=== PATIENT | female | born 1940 | race Caucasian/White ===

== ENCOUNTER 2023-02-27 12:26 | Observation (INO) | payer MEDICARE, SELFPAY ==
[2023-02-27] VITALS (10 sets, daily range): BP systolic 142–170; BP diastolic 40–54; PULSE 58–72; RESP 16–22; TEMP 36.5–36.8; O2SAT 90–97
--- NOTE | ~2023-02-27 | CT_ITS ---
EXAMINATION: CT abdomen pelvis w con INDICATION: Leukocytosis TECHNIQUE: Computed tomographic images of the abdomen and pelvis were obtained after the administrati on of 100 cc of Omnipaque 350 intravenous contrast. The dose-length product (DLP) was 577.85 mGy-cm. Automated exposure control and iterative reconstruction technique were employed. COMPARISON: None available FINDINGS: Minimal dependent airspace opacities are present in the lung bases. The heart size is noreen l. There are small pleural effusions. There is a small pericardial effusion. Calcified coronary arter y atherosclerosis is noted. The liver, spleen, pancreas, gallbladder, and adrenal glands are normal. The right kidney is unremarkable. There is calcification within a 1.5 cm hyperdense area within the l eft kidney, possibly a hemorrhagic cyst. The urinary bladder is distended. There is mild bilateral hy droureter, likely due to bladder distention. There are small foci of intraluminal gas in the urinary bladder. No pathologically enlarged abdominal or pelvic lymph nodes are identified. No free intraperi toneal gas or evidence of bowel obstruction. There is calcified atherosclerosis of the aorta and many of the other arteries. A large volume of colonic stool is present. There is moderate lumbar spondylo sis. There is a compression deformity of L2. IMPRESSION: 1. Small pleural effusions with bilateral dependent airspace opacities of the lungs, atelectasis vers us pneumonia. 2. Distended urinary bladder with tiny foci of intraluminal gas. Correlate for history of catheteriza tion. 3. Mild bilateral hydroureter, likely due to distended urinary bladder. Reviewed, dictated and finalized at location F. IMPRESSION: 1. Small pleural effusions with bilateral dependent airspace opacities of the l ungs, atelectasis versus pneumonia. 2. Distended urinary bladder with tiny foci of intraluminal gas. Correlate for history of catheterization. 3. Mild bilateral hydroureter, likely due to distended urinary bladder.
--- NOTE | ~2023-02-27 | XR_ITS ---
Portable chest x-ray Comparison: None Clinical History: Shortness of breath Findings: There is minimal bibasilar haziness. No pleural effusion or pneumothorax. Cardiomediastin al silhouette is stable. Bones and soft tissues are unremarkable. Impression: Probable minimal bibasilar pulmonary edema. Reviewed, dictated and finalized at [facility]. Impression: Probable minimal bibasilar pulmonary edema.
--- NOTE | 2023-02-27 12:29 | ECG_ITS ---
Measurements Intervals [place] Rate: 78 P: 90 ID: [id number] QRS: 67 QRSD: 79 T: 55 QT: 366 QTc: 418 Interpretive Statements SINUS RHYTHM POOR R WAVE PROGRESSION NONSPECIFIC ST AND T WAVE ABNORMALITY NO PREVIOUS ECG AVAILABLE FOR COMPARISON Electronically Signed On 02-27-2023 13:49:42 CDT by Uriel Anthony M.D.
[2023-02-27 13:20] LABS: Basophils Absolute Auto 0.1 K/mm3 (0.0-0.1); Basophils Percent Auto 0.2 % (0.2-1.2); Eosinophils Percent Auto 0.2 % (0-4.4); Hematocrit 34.2 % (37.0-47.0); Immature Granulocyte Absolute 0.29 K/mm3 (0.00-0.031); Immature Granulocyte Percent A 1.1 % (0-0.5); Lymphocytes Absolute Auto 1.61 K/mm3 (0.9-3.2); Lymphocytes Percent Auto 6.1 % (18.3-44.2); Mean Corpuscular HGB Conc 32.2 g/dl (32-36); Mean Corpuscular Hemoglobin 28.6 pg (26-34); Mean Corpuscular Volume 88.8 fl (80-100); Mean Platelet Volume 10.8 fl (7.4-10.4); Monocytes Absolute Auto 2.2 K/mm3 (0.1-0.6); Monocytes Percent Auto 8.3 % (2.6-8.5); Neutrophils Absolute Auto 22.3 K/mm3 (1.3-6.7); Neutrophils Percent Auto 84.1 % (45.5-73.1); Platelet Count Result 425 k/mm3 (150-375); Red Blood Count 3.85 M/mm3 (4.2-5.4); Red Cell Distribution Width 15.7 % (11.5-14.5); White Blood Count 26.5 K/mm3 (4.5-10.0)
[2023-02-27 13:35] LABS: Alanine Aminotransferase 54 U/L (6-35); Albumin Level 4.1 g/dL (3.5-5.1); Alkaline Phosphatase 113 U/L (38-126); Anion Gap 7 mmol/L (8-16); Aspartate Amino Transferase 49 U/L (14-36); Bilirubin,Total 0.3 mg/dL (0.2-1.3); Blood Urea Nitrogen 25 mg/dL (7-17); Calcium 9.9 mg/dL (8.4-10.2); Carbon Dioxide 26 mmol/L (22-30); Chloride 105 mmol/L (98-107); Estimated CRCL calculation 57 ml/min; Estimated Glomerular Filt Rate > 60; Glucose 133 mg/dL (65-110); Potassium 3.9 mmol/L (3.4-5.0); Sodium 138 mmol/L (137-145)
--- NOTE | 2023-02-27 14:39 | ED.SOB ---
HPI - SOB/Dyspnea General Chief Complaint: Shortness of Breath/Dyspnea Stated Complaint: sob Time Seen by Provider: 02/27/23 13:53 History of Present Illness HPI Narrative: This is an 82-year-old female with past history of A-fib on Xarelto and hypertension, who presents the emergency department complaining of dyspnea on exertion and chest pain beginning today at approximately 9 AM. The patient states she was seated, when she noticed shortness of breath and tightness in the chest rated 4/10 that does not radiate and worsened with physical exertion. She denies fevers, chills, cough or other symptoms. Related Data Home Medications Medication Instructions Recorded Confirmed Adult Low Dose Aspirin 81 mg PO DAILY 02/27/23 02/27/23 alendronate-vitamin D3 1,000 unit PO DAILY 02/27/23 02/27/23 allopurinol 300 mg tablet 300 mg PO DAILY 02/27/23 02/27/23 amlodipine 10 mg tablet 10 mg PO DAILY 02/27/23 02/27/23 ascorbate calcium (vitamin C) 500 mg PO DAILY 02/27/23 02/27/23 hydralazine 100 mg tablet 100 mg PO TID 02/27/23 02/27/23 metoprolol succinate 100 mg 100 mg PO DAILY 02/27/23 02/27/23 tablet,extended release 24 hr rivaroxaban 15 mg tablet (Xarelto) 15 mg PO DAILY 02/27/23 02/27/23 valsartan 80 1 tablet PO DAILY 02/27/23 02/27/23 mg-hydrochlorothiazide 12.5 mg tablet Allergies Allergy/AdvReac Type Severity Reaction Status Date / Time Cephalosporins Allergy Unknown Verified 02/27/23 17:27 clindamycin Allergy Unknown Verified 02/27/23 17:27 codeine Allergy Unknown Verified 02/27/23 17:27 meperidine Allergy Unknown Verified 02/27/23 17:27 morphine Allergy Unknown Verified 02/27/23 17:27 propoxyphene Allergy Unknown Verified 02/27/23 17:27 tramadol Allergy Unknown Verified 02/27/23 17:27 Review of Systems Review of Systems: CONSTITUTIONAL: Denies fever, chills, or sweats. CARDIOVASCULAR: Chest pain denies palpitations, or edema. RESPIRATORY: Dyspnea on exertion denies cough GASTROINTESTINAL: Denies abdominal pain, nausea, vomiting, or diarrhea. GENITOURINARY: Denies dysuria or hematuria. SKIN: Denies rash or itching. MUSCULOSKELETAL: Denies back pain, joint pain, or myalgia. NEUROLOGIC: Denies headache, numbness, dizziness, or weakness. PSYCHIATRIC: Denies anxiety or depression. [facility] Past Medical History Medical History (Updated 02/27/23 @ 18:04 by Annmarie Coronel NP) A-fib Encounter for removal of skin lesion Gout Hypertension Skin cancer Surgical History Surgical History (Updated 02/27/23 @ 18:04 by Annmarie Coronel NP) H/O cataract extraction H/O lumpectomy H/O tubal ligation History of appendectomy History of removal of pigmented skin lesion Family History Family History Mother Alzheimer's dementia Hypothyroidism Father Cancer Diabetes mellitus Social History Social History (Updated 02/27/23 @ 18:07 by Annmarie Coronel NP) Social History: 2 daughters . 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 Appears tired HEAD: Normocephalic, atraumatic. EYES: PERRLA and EOMI. ENT: Nares clear, no rhinorrhea or epistaxis. Mucous membranes moist. Oropharynx without tonsillar hypertrophy exudate or other lesions. NECK: Supple. No adenopathy or masses. No carotid bruits or JVD CHEST: Good aeration, Rales noted in the bilateral posterior lung noriega. No respiratory distress. No wheezes or rhonchi
[2023-02-27 15:01] LABS: NT Pro B Type Natriuretic Pept 2060 pg/mL (19.9-100); Troponin I < 0.012 ng/mL (0.000-0.034)
[2023-02-27 17:42] LABS: Appearance Urine Cloudy (Clear); Bacteria Urine 4+ /hpf; Bilirubin Urine Negative (Negative); Blood Urine Negative (Negative); Color Urine Yellow (Yellow); Glucose Urine UA Negative (Negative); Ketones Urine Negative (Negative); Leukocyte Esterase Ur 2+ LEU/UL (Negative); Nitrate Urine Positive (Negative); Non Pathogenic Casts 0-2; Protein Urine 2+ mg/dL (Negative); RBC Urine 0-2 /hpf (0-2); Specific Grav Ur 1.014 (1.001-1.035); Squamous Epithelial Cell Urine None seen /hpf (Few); Urobilinogen Urine 0.2 mg/dL (<2.0); WBC Urine >100 /hpf; pH Urine 5.5 (5.0-9.0)
[2023-02-27 17:43] LABS: Add Urine Microscopic? YES
--- NOTE | 2023-02-27 17:58 | PM.IMHP ---
H&P: HPI History of Present Illness Date/Time: 02/27/23 17:58 Chief Complaint: Shortness of breath Narrative: this is an 82-year-old female patient who has a history of hypertension and AFib on Xarelto. The patient came to the emergency room complaining of shortness of breath and dyspnea on exertion. She had chest pain that started around 9:00 a.m. this morning. She denied any chills or fever or cough. Abdominal pelvis CT was read as the following 1. Small pleural effusions with bilateral dependent airspace opacities of the lungs, atelectasis versus pneumonia. 2. Distended urinary bladder with tiny foci of intraluminal gas. Correlate for history of catheterization. 3. Mild bilateral hydroureter, likely due to distended urinary bladder. chest x-ray was read as probable minimal bibasilar pulmonary edema. Her white counts 26.5 H&H is 11.034.2. The count 425. Troponin negative. BNP 2060. Her urine was positive for UTI. the patient was given IV Lasix and Levaquin for her UTI. The patient is being admitted to observation status on 02/27/2023 Review of Systems Review of Systems: All systems reviewed & are unremarkable except as noted in HPI and below Constitutional: Constitutional: Reports as per HPI and Reports no additional constitutional complaints Eyes: Eyes: Reports as per HPI and Reports no additional eye complaints ENT: Reports system reviewed and no additional complaints, except as documented and Reports Normal hearing present Cardiovascular: Cardiovascular: Reports no additional cardiovascular complaints Respiratory: Respiratory: Reports no additional respiratory complaints and Reports no additional respiratory complaints Gastrointestinal: Gastrointestinal: Reports as per HPI and Reports no additional gastrointestinal complaints Musculoskeletal: Musculoskeletal: Reports no additional musculoskeletal complaints Integumentary/Breasts: Skin/Breast: Reports system reviewed and no additional complaints, except as docu and Reports as per HPI Neurologic: Reports system reviewed and no additional complaints, except as documented, Reports as per HPI and Reports Normal hearing present Psychiatric: Psychiatric: Reports no additional psychiatric complaints and Reports as per HPI Endocrine: Endocrine: Reports no additional endocrine complaints Hematologic/Lymphatic: Hematologic/Lymphatic: Reports no additional hematologic/lymphatic complaints Allergic/Immunologic: Allergic/Immunologic: Reports no additional allergic/immunologic complaints [facility] Past Medical History Medical History (Updated 02/27/23 @ 23:37 by Annmarie Coronel NP) A-fib Encounter for removal of skin lesion Gout Hypertension Osteoporosis Paroxysmal A-fib Skin cancer Surgical History Surgical History (Updated 02/27/23 @ 18:04 by Annmarie Coronel NP) H/O cataract extraction H/O lumpectomy H/O tubal ligation History of appendectomy History of removal of pigmented skin lesion Family History Family History Mother Alzheimer's dementia Hypothyroidism Father Cancer Diabetes mellitus Social History Social History (Updated 02/27/23 @ 23:38 by Annmarie Coronel NP) Social History: she has 2 daughters and is . she lives with her daughter. She is retired from [employer] lifelong nonsmoker. She does not use any drugs alcohol or marijuana. code status full code Smoking status: Never smoker Alcohol intake: current Substance use: never Lack of Transportation: No Lack of Food: Never True Current Housing: I Have Housing Concerned About Future Housing: No Difficulty Paying Gas/Electric Bills: No Difficulty Paying for Meds: No Currently Unemployed: No Education: High School Diploma/GED Difficulty w/ Childcare or Family Care: No Spiritual care concerns: No Meds Home Medications and Allergies Home Medications Medication Instructions
[2023-02-27] MEDS: Please add drug allergy info to patient profile. 1 EACH XX (18:10)
[2023-02-27] MEDS: FUROSEMIDE INJ 40 MG/4 ML VIAL IV PUSH (18:10)
[2023-02-27] MEDS: levoFLOXacin 750 MG/D5W 150 ML 750 MG/150 ML BAG 100 MG IVPB (18:22)
--- NOTE | 2023-02-27 19:14 | ADMGEN ---
This patient, Gely Hi, was admitted to 2 Medical Room 245-. Patient/family oriented to hospital policies and general routines including ID bracelet, bed and alarms, visiting hours, pain management, procedures, bathroom and other care routines, personal items, smoking policy, room service/diet, and visiting hours. Information on how to activate the Rapid Response Team has been discussed. Patient/Family are encouraged to report perceived risks to care and to ask questions if they do not understand what they are told or what they should do.
[2023-02-27 19:58] LABS: Troponin I < 0.012 ng/mL (0.000-0.034)
[2023-02-28] VITALS (7 sets, daily range): BP systolic 136–152; BP diastolic 40–54; PULSE 53–60; RESP 16–18; TEMP 35.9–37.2; O2SAT 90–96
--- NOTE | 2023-02-28 | ECHO_ITS ---
Patient Info Name: Gely Hi Age: 82 years : 1940 Gender: Female Ht: 64 in Wt: 250 lbs BSA: 2.32 m2 HR: 56 bpm BP: 136 / 45 mmHg Heart Rhythm: Sinus Rhythm Technical Quality: Fair Exam Date: 02/28/2023 1:08 PM Exam Location: [facility] Patient Status: Inpatient Admit Date: 02/27/2023 Staff Ordering Physician: Annmarie Coronel NP Continuous Absorption Process Operator: Carina Arboleda RDCS Attending Provider: Kalpana Hooper MD Referring Physician: Homer CORTES; Exam Type: CA echo doppler color flow Study Info Indications - pulmonary edema Complete two-dimensional, color flow and Doppler transthoracic echocardiogram is performed. Summary 1. Complete two-dimensional, color flow and Doppler transthoracic echocardiogram is performed. 2. Normal left ventricular size with borderline concentric hypertrophy. Good systolic function of all segments with an ejection fraction greater than 70%. Grade 2 diastolic dysfunction is present. 3. There is mild aortic valve regurgitation. The aortic valve is probably trileaflet. 4. No pulmonary hypertension, estimated pulmonary arterial systolic pressure is 22 mmHg. 5. There is small posterior pericardial effusion, 1.7 cm at its thickest. 6. Normal left ventricular size and thickness. 7. Normal sinus rhythm. Left Ventricle Left ventricular systolic function is hyperdynamic, estimated at >70%. The left ventricular diastolic function is grade II diastolic dysfunction. Left Atria Left atrial chamber dimension is mildly enlarged. Aortic Valve The aortic valve is probable trileaflet. There is mild aortic valve regurgitation. The aortic valve is probably trileaflet. Mitral Valve There is trace mitral valve regurgitation. Tricuspid Valve There is trace tricuspid valve regurgitation. No pulmonary hypertension, estimated pulmonary arterial systolic pressure is 22 mmHg. Pericardium/Pleural There is small posterior pericardial effusion, 1.7 cm at its thickest. Left Ventricular Outflow Tract Name Value Normal LVOT 2D LVOT Diameter 2.0 cm LVOT Doppler LVOT Peak Gradient 10 mmHg LVOT Mean Gradient 5 mmHg LVOT VTI 37 cm LVOT VTI/AV VTI Ratio 0.6 LVOT Stroke Volume 113 ml LVOT CO 5.8 l/min LVOT CI 2.5 l/min/m2 Pulmonic Valve Name Value Normal RVOT Doppler RVOT Peak Gradient 6 mmHg PV Doppler PV Peak Gradient 8 mmHg Mitral Valve Name Value Normal MV Doppler
[2023-02-28 05:18] LABS: Basophils Percent Auto 0.3 % (0.2-1.2); Eosinophils Absolute Auto 0.1 K/mm3 (0-0.3); Eosinophils Percent Auto 0.4 % (0-4.4); Hematocrit 30.9 % (37.0-47.0); Hemoglobin 9.9 g/dL (12.0-15.0); Immature Granulocyte Absolute 0.12 K/mm3 (0.00-0.031); Immature Granulocyte Percent A 0.8 % (0-0.5); Lymphocytes Absolute Auto 1.91 K/mm3 (0.9-3.2); Lymphocytes Percent Auto 12.1 % (18.3-44.2); Mean Corpuscular Hemoglobin 28.1 pg (26-34); Mean Corpuscular Volume 87.8 fl (80-100); Mean Platelet Volume 11.1 fl (7.4-10.4); Monocytes Absolute Auto 1.6 K/mm3 (0.1-0.6); Monocytes Percent Auto 10.4 % (2.6-8.5); Platelet Count Result 353 k/mm3 (150-375); Red Blood Count 3.52 M/mm3 (4.2-5.4); Red Cell Distribution Width 15.5 % (11.5-14.5); White Blood Count 15.8 K/mm3 (4.5-10.0)
[2023-02-28 05:31] LABS: Anion Gap 5 mmol/L (8-16); Blood Urea Nitrogen 27 mg/dL (7-17); Calcium 9.6 mg/dL (8.4-10.2); Carbon Dioxide 30 mmol/L (22-30); Chloride 102 mmol/L (98-107); Estimated CRCL calculation 46 ml/min; Estimated Glomerular Filt Rate 53; Glucose 94 mg/dL (65-110); Potassium 3.9 mmol/L (3.4-5.0); Sodium 137 mmol/L (137-145)
[2023-02-28] MEDS: ASCORBIC ACID 500 MG TABLET PO (09:07)
[2023-02-28] MEDS: amLODIPine BESYLATE 5 MG TABLET 10 MG PO (09:07)
[2023-02-28] MEDS: allopurinoL 300 MG TABLET PO (09:07)
[2023-02-28] MEDS: hydrALAZINE HCL 50 MG TABLET 100 MG PO ×3 (09:08→16:48)
[2023-02-28] MEDS: ASPIRIN 81 MG ENTERIC TABLET PO (09:08)
[2023-02-28] MEDS: FUROSEMIDE INJ 40 MG/4 ML VIAL IV PUSH (09:08)
[2023-02-28] MEDS: VALSARTAN 80 MG TABLET PO (09:09)
[2023-02-28] MEDS: METOPROLOL SUCCINATE EXT REL 100 MG TABCR PO (09:09)
[2023-02-28] MEDS: hydroCHLOROthiazide 12.5 MG CAPSULE PO (09:09)
[2023-02-28] MEDS: RIVAROXABAN 15 MG TABLET PO (09:11)
--- NOTE | 2023-02-28 16:53 | PM.IMPN ---
Progress Note: A&P Assessment and Plan (1) Acute UTI: Code(s): N39.0 - Urinary tract infection, site not specified Status: Acute Assessment and Plan: UA noted. Renal function with CrCl 57 -> 46. UCx pending. BCx NGTD. WBC 26K. Patient started on Levaquin due to her multiple drug allergies. WBC trending down. Continue Levaquin. (2) Urine retention: Code(s): R33.9 - Retention of urine, unspecified Status: Acute Assessment and Plan: CT Abd/pelvis with contrast showing distended urinary bladder with tiny foci of gas. Mild bilateral hydroureter likely due to the bladder distention. The UA was a clean catch. The gas could related to gas producing bacteria. Bladder scan toady showing 10mL. Check renal US. Follow. Will send to urology for urodynamics as outpatient. (3) Pulmonary edema: Qualifiers: Chronicity: acute Qualified Code(s): J81.0 - Acute pulmonary edema Code(s): J81.1 - Chronic pulmonary edema Status: Acute Assessment and Plan: CXR showing minimal bibasilar pulmonary edema. CT A/P showing minimal dependent airspace disease and small pleural and pericardial effusion. BNP 2060. The patient was given IV Lasix in the Emergency room and continued with IV Lasix daily. Echo ordered which can also follow up on the murmur. Lungs clear. Appears at dry weight. Not on O2. Stop Lasix. (4) Hypertension: Code(s): I10 - Essential (primary) hypertension Status: Acute Assessment and Plan: Patient's blood pressure was reviewed on 02/28 Blood pressure remains well controlled. Will continue current medications. (5) Paroxysmal A-fib: Code(s): I48.0 - Paroxysmal atrial fibrillation Status: Acute Assessment and Plan: EKG showing NSR. The patient is rate controlled. Continue with Xarelto. Continue with metoprolol. Subjective Date/time seen: 02/28/23 16:53 Interval history: 82yo female with HTN and pAFib here for shortness of breath. No CP or SOB. Sense of urinary urgency but no dysuria, hematuria or feeling if incomplete emptying. Exam Narrative: AF 97.6 152/54 60 16 93% ra Gen - NARD Chest - CTA bilaterally, nml RR CV - RRR S1/S2 with 2/6 systolic murmur at the apex Abd - Soft, NT/ND, Positive BS Ext - No pedal edema Psych - Nml mood and affect Skin - Warm and dry. surgical skin changes with small eschar right medial cheek Objective Data Vital Signs Vital Signs: Vital Signs - 24 hr 02/27/23 18:25 02/27/23 19:36 02/27/23 20:15 Temperature 97.7 F Pulse Rate 65 60 Respiratory Rate 20 18 Blood Pressure 155/54 H 142/47 H Pulse Oximetry 96 91 91 Oxygen Delivery Room Air 02/28/23 00:00 02/28/23 06:00 02/28/23 08:30 Temperature 97.8 F 98.9 F 98.0 F Pulse Rate 58 L 56 L 53 L Respiratory Rate 18 18 16 Blood Pressure 137/45 L 136/45 L 148/50 H Pulse Oximetry 91 90 95 Oxygen Delivery 02/28/23 09:09 02/28/23 09:02 02/28/23 14:20 Temperature Pulse Rate 55 L Respiratory Rate Blood Pressure Pulse Oximetry 93 Oxygen Delivery Room Air Room Air 02/28/23 14:10 02/28/23 14:10 Temperature 97.3 F L 97.6 F Pulse Rate 60 60 Respiratory Rate 16 16 Blood Pressure 152/45 H 152/54 H Pulse Oximetry 96 96 Oxygen Delivery Intake/Output Intake/Output: Intake & Output 02/25/23 02/26/23 02/27/23 02/28/23 23:59 23:59 23:59 23:59 Intake Total 1200 Output Total 800 1600 Balance -800 -400 Meds/Results Medications: Active Medications Generic Name Dose Route Start Last Admin Trade Name Konstantin PRN Reason Stop Dose Admin Allopurinol 300 mg 02/28/23 09:00 02/28/23 09:07 Allopurinol 300 Mg Tablet PO 300 mg DAILY JENNA Administration Amlodipine Besylate 10 mg 02/28/23 09:00 02/28/23 09:07 Amlodipine Besylate 5 Mg Tablet PO 10 mg DAILY JENNA Administration Ascorbic Acid 500 mg 02/28/23 09:00 02/28/23 09:07 Ascorbic
[2023-03-01 06:00] VITALS: BP 143/46; PULSE 52; RESP 16; TEMP 35.6; O2SAT 95
[2023-03-01 06:26] LABS: Basophils Absolute Auto 0.1 K/mm3 (0.0-0.1); Basophils Percent Auto 0.7 % (0.2-1.2); Eosinophils Absolute Auto 0.4 K/mm3 (0-0.3); Eosinophils Percent Auto 3.2 % (0-4.4); Hematocrit 32.2 % (37.0-47.0); Hemoglobin 10.4 g/dL (12.0-15.0); Immature Granulocyte Absolute 0.09 K/mm3 (0.00-0.031); Immature Granulocyte Percent A 0.8 % (0-0.5); Lymphocytes Percent Auto 23.1 % (18.3-44.2); Mean Corpuscular HGB Conc 32.3 g/dl (32-36); Mean Corpuscular Hemoglobin 28.5 pg (26-34); Mean Corpuscular Volume 88.2 fl (80-100); Monocytes Absolute Auto 1.1 K/mm3 (0.1-0.6); Monocytes Percent Auto 10.2 % (2.6-8.5); Neutrophils Absolute Auto 6.7 K/mm3 (1.3-6.7); Platelet Count Result 339 k/mm3 (150-375); Red Blood Count 3.65 M/mm3 (4.2-5.4); Red Cell Distribution Width 15.5 % (11.5-14.5); White Blood Count 10.8 K/mm3 (4.5-10.0)
[2023-03-01 06:35] LABS: Alanine Aminotransferase 32 U/L (6-35); Albumin Level 3.4 g/dL (3.5-5.1); Alkaline Phosphatase 91 U/L (38-126); Anion Gap 5 mmol/L (8-16); Aspartate Amino Transferase 19 U/L (14-36); Bilirubin,Total 0.5 mg/dL (0.2-1.3); Blood Urea Nitrogen 35 mg/dL (7-17); Calcium 9.7 mg/dL (8.4-10.2); Carbon Dioxide 30 mmol/L (22-30); Chloride 100 mmol/L (98-107); Estimated CRCL calculation 36 ml/min; Estimated Glomerular Filt Rate 39; Glucose 123 mg/dL (65-110); Magnesium 1.8 mg/dL (1.6-2.3); Phosphorus 3.9 mg/dL (2.5-4.5); Potassium 3.8 mmol/L (3.4-5.0); Sodium 135 mmol/L (137-145)
[2023-03-01 08:08] VITALS: PULSE 56; TEMP 36.5
[2023-03-01] MEDS: ASCORBIC ACID 500 MG TABLET PO (08:10)
[2023-03-01] MEDS: levoFLOXacin 750 MG TABLET PO (08:10)
[2023-03-01] MEDS: VALSARTAN 80 MG TABLET PO (08:10)
[2023-03-01] MEDS: amLODIPine BESYLATE 5 MG TABLET 10 MG PO (08:11)
[2023-03-01] MEDS: hydrALAZINE HCL 50 MG TABLET 100 MG PO ×2 (08:11→12:29)
[2023-03-01] MEDS: ASPIRIN 81 MG ENTERIC TABLET PO (08:11)
[2023-03-01] MEDS: allopurinoL 300 MG TABLET PO (08:11)
[2023-03-01] MEDS: RIVAROXABAN 15 MG TABLET PO (08:11)
[2023-03-01] MEDS: hydroCHLOROthiazide 12.5 MG CAPSULE PO (08:12)
[2023-03-01] MEDS: METOPROLOL SUCCINATE EXT REL 100 MG TABCR PO (08:12)
[2023-03-01 09:48] VITALS: PULSE 60; O2SAT 95
[2023-03-01 12:15] VITALS: BP 144/42; PULSE 59
--- NOTE | 2023-03-01 13:37 | PM.DS ---
DS: Admitting Diagnosis Discharge Date 03/01/23 Admitting Diagnosis Shortness of breath DS: Discharge Diagnosis Discharge Diagnosis (1) Acute UTI: Code(s): N39.0 - Urinary tract infection, site not specified Status: Acute (2) Urine retention: Code(s): R33.9 - Retention of urine, unspecified Status: Acute (3) Pulmonary edema: Qualifiers: Chronicity: acute Qualified Code(s): J81.0 - Acute pulmonary edema Code(s): J81.1 - Chronic pulmonary edema Status: Acute (4) Hypertension: Code(s): I10 - Essential (primary) hypertension Status: Acute (5) Paroxysmal A-fib: Code(s): I48.0 - Paroxysmal atrial fibrillation Status: Acute (6) DIAZ (acute kidney injury): Code(s): N17.9 - Acute kidney failure, unspecified Status: Acute DS: Summary Hospital Course Reason for hospitalization: 82yo female with HTN and pAFib here for shortness of breath and palpitations. Please see H&P for details Hospital Course: Patient presents with complaints of FISHER, chest pain and palpitations. She had normal vital signs on admission. Troponin negative. EKG showing normal sinus rhythm with nonspecific EKG changes. CXR showing minimal bibasilar pulmonary edema. CT A/P showing minimal dependent airspace disease and small pleural and pericardial effusion. BNP 2060. The patient was given IV Lasix in the Emergency room and continued with IV Lasix daily. Echo showing EF 70% with grade II diastolic dysfunction. Incidental finding of a small pericardial effusion. No significant valvular disease except mild AI and trace MR. CT Abd/pelvis with contrast showing distended urinary bladder with tiny foci of gas. Mild bilateral hydroureter likely due to the bladder distention. The UA was a clean catch. The gas could related to gas producing bacteria. Bladder scan showing 10mL. Patient advised to follow up with urology if she has symptoms of urine retention. UA was consistent with UTI. Cr did climb to 1.3 felt related to the Lasix which was stopped. BCx NGTD. WBC was 26K on admission. Patient started on Levaquin due to her multiple drug allergies. WBC trended down to 10K. Urine culture grew mendiola-sensitive EColi. Patient has pAFib and suspect that her presenting symptoms were related to AFib triggered by the UTI. She was in normal sinus here. She was continued on her Xarelto and metoprolol. She had clinical improvement. She was able to be discharged home on 03/01/23. Status at Discharge Cognitive/behavioral status at discharge: stable Time Spent with Patient Time attestation: Total time spent providing and/or coordinating discharge services: 35 minutes Time spent: Greater than 30 minutes Exam Narrative: AF 97.7 144/42 59 16 95% ra Gen - NARD Chest - CTA bilaterally, nml RR CV - RRR S1/S2 Abd - Soft, NT/ND, Positive BS Ext - No pedal edema Psych - Nml mood and affect Skin - Warm and dry. DS: Data Data Completed and Pending Labs on day of discharge: Labs from last 24 hours 03/01/23 05:37 WBC 10.8 H RBC 3.65 L Hgb 10.4 L Hct 32.2 L MCV 88.2 MCH 28.5 MCHC 32.3 RDW 15.5 H Plt Count 339 MPV 11.0 H Immature Gran % (Auto) 0.8 H Neut % (Auto) 62.0 Lymph % (Auto) 23.1 [place] % (Auto) 10.2 H Eos % (Auto) 3.2 Baso % (Auto) 0.7 Lymph # (Auto) 2.50 [place] # (Auto) 1.1 H Eos # (Auto) 0.4 H Baso # (Auto) 0.1 Abs Immat Gran (auto) 0.09 H Absolute Neuts (auto) 6.7 Absolute Nucleated RBC 0.0 Nucleated RBC % 0.0 Sodium 135 L Potassium 3.8 Chloride 100 Carbon Dioxide 30 Anion Gap 5 L BUN 35 H Creatinine 1.30 H Estim Creat Clear Calc 36 Estimated GFR 39 L Glucose 123 H Calcium 9.7 Phosphorus 3.9 Magnesium 1.8 Total Bilirubin 0.5 AST 19 ALT 32 Alkaline Phosphatase 91 Total Protein 6.0 L Albumin 3.4 L Preliminary micro results at discharge 02/28/23 00:47 Blood Culture - Preliminary Blood 02/28
== END 2023-03-01 15:18 | disposition home or self-care (01) ==
LOC: ANHED 17:32 → ANH2MED 20:15
PROVIDERS: Emergency Medicine; Admitting Provider Family Medicine; Emergency Provider Preventive Medicine Aerospace Medicine; PCP Internal Medicine; Visit Provider Internal Medicine
DX: N39.0 Urinary tract infection, site not specified (principal); B96.20 Unspecified Escherichia coli [E. coli] as the cause of diseases classified elsewhere; R33.9 Retention of urine, unspecified; J81.0 Acute pulmonary edema; N17.9 Acute kidney failure, unspecified; I10 Essential (primary) hypertension; I48.0 Paroxysmal atrial fibrillation; R06.09 Other forms of dyspnea; R07.9 Chest pain, unspecified; I48.91 Unspecified atrial fibrillation; I78.1 Nevus, non-neoplastic; D72.829 Elevated white blood cell count, unspecified; D64.9 Anemia, unspecified; R73.9 Hyperglycemia, unspecified; R74.01 Elevation of levels of liver transaminase levels; N13.4 Hydroureter; I35.1 Nonrheumatic aortic (valve) insufficiency; M81.0 Age-related osteoporosis without current pathological fracture; M10.9 Gout, unspecified; F10.90 Alcohol use, unspecified, uncomplicated; Z79.01 Long term (current) use of anticoagulants; Z79.82 Long term (current) use of aspirin; Z79.899 Other long term (current) drug therapy
CPT/HCPCS: 36415; 71045; 74177; 80048; 80053; 81001; 83735; 83880; 84100; 84484; 85025; 87040; 87077; 87086; 87186; 93005; 93306; 96374; 96375; 99285; A9270; G0378; J1940; J1956; Q9967

== ENCOUNTER 2023-03-06 12:25 | Outpatient (CLI) | payer MEDICARE, SELFPAY ==
[2023-03-06 13:45] LABS: Anion Gap 7 mmol/L (8-16); Blood Urea Nitrogen 27 mg/dL (7-17); Calcium 10.3 mg/dL (8.4-10.2); Carbon Dioxide 26 mmol/L (22-30); Chloride 106 mmol/L (98-107); Estimated Glomerular Filt Rate 53; Glucose 106 mg/dL (65-110); Potassium 3.9 mmol/L (3.4-5.0); Sodium 139 mmol/L (137-145)
== END 2023-03-06 12:26 | disposition home or self-care (01) ==
LOC: ANHLAB 12:27
PROVIDERS: PCP Internal Medicine; Visit Provider Internal Medicine
DX: N17.9 Acute kidney failure, unspecified (principal)
CPT/HCPCS: 36415; 80048

== ENCOUNTER 2024-02-17 15:53 | Inpatient (IN) | payer MEDICARE, SELFPAY ==
[2024-02-17] VITALS (11 sets, daily range): BP systolic 131–137; BP diastolic 35–44; PULSE 65–102; RESP 16–25; TEMP 36.3–36.6; O2SAT 96–100
--- NOTE | ~2024-02-17 | XR_ITS ---
EXAMINATION: XR chest 1V portable Exam Date/Time: 02/17/2024 18:00 CDT HISTORY: WEAKNESS Comparison: 02/27/2023. RESULT: Lines, tubes, and devices: None. Lungs and pleura: Biapical pleural scarring. Senescent changes.. Cardiomediastinal silhouette: Stable. Other: No acute osseous or upper abdominal finding. IMPRESSION: No acute cardiopulmonary process. Reviewed, dictated and finalized at location K.
--- NOTE | ~2024-02-17 | CT_ITS ---
EXAMINATION: CT abdomen pelvis wo con DATE: 02/23/2024 11:26 INDICATION: Right psoas abscess. TECHNIQUE: Computed tomography (CT) of the abdomen and pelvis was performed without intravenous contr ast. Automated exposure control and iterative reconstruction technique were employed. The dose-length product was 654.90 mGy-cm. COMPARISON: CT abdomen and pelvis 02/17/2024 FINDINGS: The visualized portions of the lung bases demonstrate mild atelectasis and mild chronic millie g disease. There are small pleural effusions. The heart size is normal. There are coronary artery albin cifications. There are calcifications in the aortic valve. There is a small pericardial effusion. The liver and spleen are normal. There is contrast in the gallbladder, which is normal in size. The panc reas and adrenal glands are normal. There are persistent contrast nephrograms, consistent with decrea sed kidney function. There is a percutaneous drain in the right psoas muscle. The right psoas muscle is larger than the left. There is a 2.2 x 0.5 cm thick-walled fluid collection in the right perinephr ic space. There is a 2.2 x 1.2 cm thick-walled fluid collection in the left perinephric space. There is calcified atherosclerosis of the aorta and many of the other arteries. There is a Rodríguez catheter i n expected position. There are no dilated loops of bowel. There is trace pelvic ascites. There are no pathologically enlarged lymph nodes. There is a chronic compression fracture of L2. There is severe lower lumbar spondylosis. IMPRESSION: 1. Small pericardial effusion. 2. Small pleural effusions. 3. Percutaneous drain in right psoas muscle. Right psoas muscle remains larger than the left suggesti ng inflammation, but no definite significant residual drainable fluid is identified. 4. 2.2 x 0.5 cm right perinephric abscess. 5. 2.2 x 1.2 cm left perinephric abscess. Reviewed, dictated and finalized at location A. IMPRESSION: 1. Small pericardial effusion. 2. Small pleural effusions. 3. Percutaneous drain in right psoas muscle. Right psoas muscle remains larger than the left suggesting inflammation, but no definite significant residual poli inable fluid is identified. 4. 2.2 x 0.5 cm right perinephric abscess. 5. 2.2 x 1.2 cm left perinephric abscess.
--- NOTE | ~2024-02-17 | MR_ITS ---
EXAMINATION: MR brain/brain stem wo/w con DATE: 02/20/2024 12:06 INDICATION: Altered mental status. TECHNIQUE: Magnetic resonance imaging (MRI) of the brain and brainstem was performed without and with 11 mL MultiHance intravenous contrast. COMPARISON: Head CT 02/18/2024 FINDINGS: There are scattered areas of nonspecific increased T2-weighted signal intensity in the cere bral white matter. There is no intracranial hemorrhage, acute infarction, or abnormal intracranial ma ss lesion. The ventricles are normal in size. There are likely changes of ocular lens replacement caryn geries. There is mild mucosal thickening in the paranasal sinuses. There is a small right mastoid eff usion. IMPRESSION: 1. Moderate nonspecific cerebral white matter disease, which likely represents chronic small vessel i schemic disease. Reviewed, dictated and finalized at location A. IMPRESSION: 1. Moderate nonspecific cerebral white matter disease, which likely represents chronic small vessel ischemic disease.
--- NOTE | ~2024-02-17 | CT_ITS ---
EXAMINATION: CT chest abdomen pelvis w con DATE: 02/17/2024 20:17 INDICATION: malignancy? . TECHNIQUE: Computed tomography (CT) of the chest, abdomen, and pelvis was performed with 100 mL Omnip aque-350 intravenous contrast. Automated exposure control and iterative reconstruction technique were employed. The dose-length product was 335.67 mGy-cm. COMPARISON: 02/27/2023 FINDINGS: CHEST: Thoracic aorta: No significant dilation. No dissection. Mild arch calcification. Lung parenchyma and airways: Mild septal thickening. Biapical pleural scarring. Dependent atelectasis . Patent airways. Thoracic inlet, axillae and chest wall: No thyroid or soft tissue mass. No axillary lymphadenopathy. Mediastinum: No mass or lymphadenopathy. Heart and pericardium: Mild cardiomegaly. No pericardial effusion. Coronary artery calcifications: Mild. Pleura: No effusion or mass. Thoracic bones: No acute osseous finding in the chest. ABDOMEN/PELVIS: Liver: Normal. Biliary/Gallbladder: Gallbladder is normal. No bile duct dilation. Pancreas: No mass or duct dilation. Spleen: Normal. Adrenals:No mass. Kidneys: No suspicious mass, obstructing stone, or hydronephrosis. GI tract: Mild distal esophageal and gastric wall edema. No small or large bowel dilation. Normal deejay endix. Mesentery/Peritoneum: No ascites, mass, or free air. Retroperitoneum: Large multilobulated rim-enhancing collection in the right psoas muscle which appear s to extend from the inferior pole of the right kidney. Irregular shape makes measurement difficult, rough overall size is 7.2 x 19.7 cm. A smaller retroperitoneal collection is noted posterior to the l eft kidney measuring up to 3.4 cm. Atherosclerotic abdominal aortic and/or arterial calcifications. Pelvis: Pelvic organs are within normal limits Soft Tissues: Soft tissues and body wall unremarkable. Abdominopelvic bones: No acute osseous finding in the abdomen/pelvis. Stable compression deformity a t L2. IMPRESSION: Mild initial edema. Mild esophagitis/gastritis. Large right psoas abscess, measuring up to 19.7 cm, which may extend from the inferior pole the right kidney. A 3.4 cm left perirenal collection, a suspected abscess, is also present. Reviewed, dictated and finalized at location K. IMPRESSION: Mild initial edema. Mild esophagitis/gastritis. Large right psoas abscess, measuring up to 19.7 cm, which may extend from the i nferior pole the right kidney. A 3.4 cm left perirenal collection, a suspected abscess, is also present.
--- NOTE | ~2024-02-17 | CT_ITS ---
EXAMINATION: CT guide absc cath placement DATE: 02/18/2024 15:15 INDICATION: Right psoas abscess. TECHNIQUE: The procedure including the risks, benefits, and alternatives was discussed with the patie nt. Risks discussed included bleeding and infection. The patient understood the risks and benefits an d agreed to proceed. The skin overlying the right retroperitoneum was prepped and draped in usual st erile fashion. Anesthetic was administered with 1% lidocaine subcutaneously. An 18 gauge trochar nee dle was inserted into the right retroperitoneal abscess with CT guidance. The needle was exchanged ov er a wire for 6 Romanian, 8 Romanian, 10 Romanian, and 12 Romanian dilators and then for a 12 Romanian pigtail catheter. The catheter was stitched to the skin, and a sterile dressing was applied. The mA was adjus naomi according to patient size. Iterative reconstruction technique was employed. The dose-length produ ct was 204.90 mGy-cm. There were no immediate complications. FINDINGS: CT images demonstrate the catheter within the right retroperitoneal abscess. 10 mL fluid wa s aspirated for testing. IMPRESSION: 1. Successful CT-guided right retroperitoneal abscess drainage. 2. 10 mL opaque, light green fluid was sent for aerobic and anaerobic cultures. Reviewed, dictated and finalized at location A.
--- NOTE | ~2024-02-17 | CT_ITS ---
Non-contrast Head CT History: Weakness Technique: Axial non-contrast imaging of the brain was performed. Dose reduction technique was used on this scan by utilizing automated exposure control and iterative reconstruction technique. The dose -length product (DLP) was 605.33 mGy-cm. Findings: There is no evidence of intracranial hemorrhage, mass lesion, or acute infarct. Brain par enchyma appears normal. The ventricles and subarachnoid spaces are normal in size. The calvarium ap pears normal. The visualized paranasal sinuses and mastoid air cells are clear. Impression: No significant abnormality seen. Reviewed, dictated and finalized at location . Impression: No significant abnormality seen.
--- NOTE | 2024-02-17 17:07 | ECG_ITS ---
SEE SCANNED COPY FOR CONFIRMED REPORT MTDD
--- NOTE | 2024-02-17 17:51 | ED_ITS ---
HPI - Weakness General Chief complaint: Weakness Stated complaint: weakness Time Seen by Provider: 02/17/24 17:03 History of Present Illness HPI Narrative: 83-year-old female with history of paroxysmal AFib chronically anticoagulated, hypertension presents to the ED with her daughters at bedside for generalized weakness. When asked the patient why she is here she said ?because I am dying?. The patient's daughters assist with history. States the patient has had some dizziness and generalized weakness intermittently for approximately 1 month. States the patient's primary care has been changing blood pressure medications in hopes of helping with her symptoms, however they have not improved. They present today because over the past couple of days the patient has not been tolerating any p.o. intake. States she is very weak and not getting out of bed, has little motivation. When asked the patient why she is not eating she states it is because the food does not taste good, food does not go down well, and because she feels sick to her stomach. The patient lives with her daughter who is at bedside. The patient denies any chest pain or shortness of breath, dysuria or hematuria, abdominal pain, vomiting or diarrhea, headache or vision changes, focal numbness or weakness. She is reporting intermittent cough and congestion. I had a discussion with patient and family at bedside about goals of care today. They are in agreement that they would like a full workup and treatment of any infection, however the patient desires to be DNR/DNI. Related Data Home Medications Medication Instructions Recorded Confirmed Adult Low Dose Aspirin 81 mg PO DAILY 02/27/23 02/27/23 alendronate-vitamin D3 1,000 unit PO DAILY 02/27/23 02/27/23 allopurinol 300 mg tablet 300 mg PO DAILY 02/27/23 02/27/23 amlodipine 10 mg tablet 10 mg PO DAILY 02/27/23 02/27/23 ascorbate calcium (vitamin C) 500 mg PO DAILY 02/27/23 02/27/23 hydralazine 100 mg tablet 100 mg PO TID 02/27/23 02/27/23 metoprolol succinate 100 mg 100 mg PO DAILY 02/27/23 02/27/23 tablet,extended release 24 hr rivaroxaban 15 mg tablet (Xarelto) 15 mg PO DAILY 02/27/23 02/27/23 valsartan 80 1 tablet PO DAILY 02/27/23 02/27/23 mg-hydrochlorothiazide 12.5 mg tablet Allergies Allergy/AdvReac Type Severity Reaction Status Date / Time atorvastatin Allergy Muscle Pain Verified 02/17/24 22:02 Cephalosporins Allergy Unknown Verified 02/17/24 16:05 clindamycin Allergy Unknown Verified 02/17/24 16:05 codeine Allergy Unknown Verified 02/17/24 16:05 meperidine Allergy Unknown Verified 02/17/24 16:05 morphine Allergy Unknown Verified 02/17/24 16:05 Penicillins Allergy Fainting Verified 02/17/24 22:01 propoxyphene Allergy Unknown Verified 02/17/24 16:05 rosuvastatin Allergy Unknown Verified 02/17/24 22:03 Sulfa (Sulfonamide Allergy Other Verified 02/17/24 22:05 Antibiotics) tramadol Allergy Unknown Verified 02/17/24 16:05 Review of Systems Review of Systems: CONSTITUTIONAL: Denies fever, chills, or sweats. EYES: Denies visual changes, redness, or discharge. ENT: Denies rhinorrhea, congestion, sore throat, or otalgia. CARDIOVASCULAR: Denies chest pain, palpitations, or edema. RESPIRATORY: Denies cough or dyspnea. GASTROINTESTINAL: Denies abdominal pain, nausea, vomiting, or diarrhea. GENITOURINARY: Denies dysuria or hematuria. SKIN: Denies rash or itching. MUSCULOSKELETAL: Denies back pain, joint pain, or myalgia. NEUROLOGIC: See HPI PSYCHIATRIC: Denies anxiety or depression. [facility] Past Medical History Medical History A-fib Encounter for removal of skin lesion Gout Hypertension Osteoporosis Paroxysmal A-fib Skin cancer Surgical History Surgical History H/O cataract extraction H/O lumpectomy H/O tubal ligation History of appendectomy History of removal of pigmented skin lesion Family History Family History Mother Alzheimer's dementia Hypothyroidism Father Cancer Diabetes mellitus Social History Social History Social History: she has 2 daughters and is . she lives with her daughter. She is retired from [employer] lifelong nonsmoker. She does not use any drugs alcohol or marijuana. code status full code Smoking status: Never smoker Alcohol intake: current Substance use: never Lack of Transportation: No Lack of Food: Never True Current Housing: I Have Housing Concerned About Future Housing: No Difficulty Paying Gas/Electric Bills: No Difficulty Paying for Meds: No Currently Unemployed: No Education: High School Diploma/GED Difficulty w/ Childcare or Family Care: No Spiritual care concerns: No Exam Narrative: GENERAL: Elderly female, ill-appearing, lying in exam bed HEAD: Normocephalic, atraumatic. EYES: PERRLA and EOMI. ENT: Nares clear, no rhinorrhea or epistaxis. Mucous membranes moist. NECK: Supple. CHEST: Clear to auscultation. No respiratory distress. HEART: Regular rate and rhythm. No murmur heard. Normal peripheral pulses. ABDOMEN: Soft, nontender, nondistended, normal active bowel sounds. No rebound, guarding or rigidity. EXTREMITIES: Normal range of motion. No edema. SKIN: Warm, dry, no rash. NEURO: No focal deficits. Alert and oriented x3. Moving all extremities spontaneously Course Vital Signs Vital signs: Vital Signs Temperature 97.4 F L 02/17/24 15:58 Pulse Rate 72 02/17/24 15:58 Respiratory Rate 16 02/17/24 15:58 Blood Pressure 131/35 L 02/17/24 15:58 Pulse Oximetry 96 02/17/24 15:58 Oxygen Delivery Room Air 02/17/24 15:58 Temperature 97.8 F 02/17/24 17:13 Pulse Rate 75 02/18/24 00:11 Respiratory Rate 17 02/18/24 00:11 Blood Pressure 144/69 H 02/18/24 00:11 Pulse Oximetry 96 02/18/24 00:11 Oxygen Delivery Room Air 02/17/24 17:13 MDM - Weakness MDM Narrative Medical decision making narrative: 83-year-old female presents with her daughters at bedside for evaluation for generalized weakness and decreased p.o. intake for the past few days. Triage vital stable. Exam is significant for the above. EKG with sinus rhythm with occasional supraventricular premature complexes, Q- waves in the anterior leads, no ST elevations or depressions, normal MS interval, normal QRS duration, normal QTC. Lab work was remarkable for leukocytosis of 27.3 and hemoglobin of 9.3 as well as thrombocytosis of 80 100. Possible malignancy versus infection. Chemistries with sodium 129, creatinine of 1.4 and BUN of 54 with a estimated GFR of 36. Calcium elevated 12.6. Mag and phos are normal. CK and lipase are normal. COVID, flu RSV are negative. Troponin is elevated 0.042, patient continues to deny chest pain. Will trend troponins. UA concerning for UTI. Labs and imaging discussed with patient and family at bedside. Concern for cancer versus infectious process. CT chest abdomen pelvis obtained which shows large right psoas abscess measuring 19.7 cm which may extend from the inferior pole of the right kidney. There is a 3.4 cm left perirenal collection suspected abscess as well. Patient has not had any recent abdominal pelvic surgeries or procedures per patient and family. She was started on Levaquin and Flagyl given multiple allergies, fluids are ongoing. Repeat EKG shows atrial fibrillation with a rate of 92bpm, there are some lateral ST depressions which are new when compared to recent EKG. Repeat troponin is flat at 0.040, likely demand ischemia from infection. I discussed the case with general surgeon, Dr. Alexander, who recommends consultation with Urology given possible origin from right kidney. Discussed case with Dr. Walls, urology, who agrees to consults and advises to keep the patient NPO at midnight. Case discussed with hospitalist agrees the plan for admission, recommends repeat BMP and bladder scan as well as CT brain. Family and patient agreeable to plan. CT brain shows no acute findings. Lab Data 02/17/24 18:01 02/17/24 23:21 Labs: Lab Results 02/17/24 02/17/24 02/17/24 Range/Units 18:01 18:01 18:01 WBC 27.3 H (4.5-10.0) K/mm3 RBC 3.44 L (4.2-5.4) M/mm3 Hgb 9.3 L (12.0-15.0) g/dL Hct 28.9 L (37.0-47.0) % MCV 84.0 (80-100) fl MCH 27.0 (26-34) pg MCHC 32.2 (32-36) g/dl RDW 15.1 H (11.5-14.5) % Plt Count 800 H D (150-375) k/mm3 MPV 10.4 (7.4-10.4) fl Immature Gran % (Auto) 1.0 H (0-0.5) % Neut % (Auto) 87.7 H (45.5-73.1) % Lymph % (Auto) 5.2 L (18.3-44.2) % [place] % (Auto) 5.8 (2.6-8.5) % Eos % (Auto) 0.0 (0-4.4) % Baso % (Auto) 0.3 (0.2-1.2) % Lymph # (Auto) 1.41 (0.9-3.2) K/mm3 [place] # (Auto) 1.6 H (0.1-0.6) K/mm3 Eos # (Auto) 0.0 (0-0.3) K/mm3 Baso # (Auto) 0.1 (0.0-0.1) K/mm3 Abs Immat Gran (auto) 0.28 H (0.00-0.031) K/mm3 Absolute Neuts (auto) 24.0 H (1.3-6.7) K/mm3 Absolute Nucleated RBC 0.000 (0.0-0.012) K/mm3 Nucleated RBC % 0.0 (0.0-0.2) % Platelet Estimate Increased (Adequate) Large Platelets Present Hypochromasia 1+ Anisocytosis 1+ Dania Cells 1+ Schistocytes None seen ESR (0-20) mm/hr Sodium Cancelled 129 L Potassium Cancelled 3.6 Chloride Cancelled Carbon Dioxide Anion Gap BUN Creatinine Estim Creat Clear Calc Estimated GFR Glucose Lactic Acid (0.7-2.0) mmol/L Calcium Phosphorus (2.5-4.5) mg/dL Magnesium (1.6-2.3) mg/dL Total Bilirubin AST ALT Alkaline Phosphatase Total Creatine Kinase (30-135) U/L Troponin I (0.000-0.034) ng/mL C-Reactive Protein (<1.0) mg/dL Total Protein Albumin Lipase (23-300) U/L Urine Color (Yellow) Urine Appearance (Clear) Urine pH (5.0-9.0) Ur Specific Crescent (1.001-1.035) Urine Protein (Negative) mg/dL Urine Glucose (UA) (Negative) mg/dL Urine Ketones (Negative) mg/dL Ur Blood (Man) (Negative) Urine Nitrate (Negative) Urine Bilirubin (Negative) Urine Urobilinogen (<2.0) mg/dL Add Ur Microanalysis Leukocyte Esterase Rfl (Negative) EYAL/UL Urine RBC (0-2) /hpf Urine WBC (0-3) /hpf Ur Squamous Epith Cells (Few) /hpf Urine Bacteria /hpf Urine Casts Influenza A (RT-PCR) (Negative) Influenza B (RT-PCR) (Negative) RSV (RT-PCR) (Negative) SARS-CoV-2 RNA (RT-PCR) (Negative) 02/17/24 02/17/24 02/17/24 Range/Units 18:01 18:01 18:01 WBC (4.5-10.0) K/mm3 RBC (4.2-5.4) M/mm3 Hgb (12.0-15.0) g/dL Hct (37.0-47.0) % MCV (80-100) fl MCH (26-34) pg MCHC (32-36) g/dl RDW (11.5-14.5) % Plt Count (150-375) k/mm3 MPV (7.4-10.4) fl Immature Gran % (Auto) (0-0.5) % Neut % (Auto) (45.5-73.1) % Lymph % (Auto) (18.3-44.2) % [place] % (Auto) (2.6-8.5) % Eos % (Auto) (0-4.4) % Baso % (Auto) (0.2-1.2) % Lymph # (Auto) (0.9-3.2) K/mm3 [place] # (Auto) (0.1-0.6) K/mm3 Eos # (Auto) (0-0.3) K/mm3 Baso # (Auto) (0.0-0.1) K/mm3 Abs Immat Gran (auto) (0.00-0.031) K/mm3 Absolute Neuts (auto) (1.3-6.7) K/mm3 Absolute Nucleated RBC (0.0-0.012) K/mm3 Nucleated RBC % (0.0-0.2) % Platelet Estimate (Adequate) Large Platelets Hypochromasia Anisocytosis Dania Cells Schistocytes ESR (0-20) mm/hr Sodium Potassium Chloride 97 L Carbon Dioxide Cancelled 26 Anion Gap Cancelled 6 BUN Cancelled Creatinine Estim Creat Clear Calc Estimated GFR Glucose Lactic Acid (0.7-2.0) mmol/L Calcium Phosphorus (2.5-4.5) mg/dL Magnesium (1.6-2.3) mg/dL Total Bilirubin AST ALT Alkaline Phosphatase Total Creatine Kinase (30-135) U/L Troponin I (0.000-0.034) ng/mL C-Reactive Protein (<1.0) mg/dL Total Protein Albumin Lipase (23-300) U/L Urine Color (Yellow) Urine Appearance (Clear) Urine pH (5.0-9.0) Ur Specific Crescent (1.001-1.035) Urine Protein (Negative) mg/dL Urine Glucose (UA) (Negative) mg/dL Urine Ketones (Negative) mg/dL Ur Blood (Man) (Negative) Urine Nitrate (Negative) Urine Bilirubin (Negative) Urine Urobilinogen (<2.0) mg/dL Add Ur Microanalysis Leukocyte Esterase Rfl (Negative) EYAL/UL Urine RBC (0-2) /hpf Urine WBC (0-3) /hpf Ur Squamous Epith Cells (Few) /hpf Urine Bacteria /hpf Urine Casts Influenza A (RT-PCR) (Negative) Influenza B (RT-PCR) (Negative) RSV (RT-PCR) (Negative) SARS-CoV-2 RNA (RT-PCR) (Negative) 02/17/24 02/17/24 02/17/24 Range/Units 18:01 18:01 18:01 WBC (4.5-10.0) K/mm3 RBC (4.2-5.4) M/mm3 Hgb (12.0-15.0) g/dL Hct (37.0-47.0) % MCV (80-100) fl MCH (26-34) pg MCHC (32-36) g/dl RDW (11.5-14.5) % Plt Count (150-375) k/mm3 MPV (7.4-10.4) fl Immature Gran % (Auto) (0-0.5) % Neut % (Auto) (45.5-73.1) % Lymph % (Auto) (18.3-44.2) % [place] % (Auto) (2.6-8.5) % Eos % (Auto) (0-4.4) % Baso % (Auto) (0.2-1.2) % Lymph # (Auto) (0.9-3.2) K/mm3 [place] # (Auto) (0.1-0.6) K/mm3 Eos # (Auto) (0-0.3) K/mm3 Baso # (Auto) (0.0-0.1) K/mm3 Abs Immat Gran (auto) (0.00-0.031) K/mm3 Absolute Neuts (auto) (1.3-6.7) K/mm3 Absolute Nucleated RBC (0.0-0.012) K/mm3 Nucleated RBC % (0.0-0.2) % Platelet Estimate (Adequate) Large Platelets Hypochromasia Anisocytosis Dania Cells Schistocytes ESR (0-20) mm/hr Sodium Potassium Chloride Carbon Dioxide Anion Gap BUN 54 H D Creatinine Cancelled 1.40 H Estim Creat Clear Calc Cancelled 21 Estimated GFR Cancelled Glucose Lactic Acid (0.7-2.0) mmol/L Calcium Phosphorus (2.5-4.5) mg/dL Magnesium (1.6-2.3) mg/dL Total Bilirubin AST ALT Alkaline Phosphatase Total Creatine Kinase (30-135) U/L Troponin I (0.000-0.034) ng/mL C-Reactive Protein (<1.0) mg/dL Total Protein Albumin Lipase (23-300) U/L Urine Color (Yellow) Urine Appearance (Clear) Urine pH (5.0-9.0) Ur Specific Crescent (1.001-1.035) Urine Protein (Negative) mg/dL Urine Glucose (UA) (Negative) mg/dL Urine Ketones (Negative) mg/dL Ur Blood (Man) (Negative) Urine Nitrate (Negative) Urine Bilirubin (Negative) Urine Urobilinogen (<2.0) mg/dL Add Ur Microanalysis Leukocyte Esterase Rfl (Negative) EYAL/UL Urine RBC (0-2) /hpf Urine WBC (0-3) /hpf Ur Squamous Epith Cells (Few) /hpf Urine Bacteria /hpf Urine Casts Influenza A (RT-PCR) (Negative) Influenza B (RT-PCR) (Negative) RSV (RT-PCR) (Negative) SARS-CoV-2 RNA (RT-PCR) (Negative) 02/17/24 02/17/24 02/17/24 Range/Units 18:01 18:01 18:01 WBC (4.5-10.0) K/mm3 RBC (4.2-5.4) M/mm3 Hgb (12.0-15.0) g/dL Hct (37.0-47.0) % MCV (80-100) fl MCH (26-34) pg MCHC (32-36) g/dl RDW (11.5-14.5) % Plt Count (150-375) k/mm3 MPV (7.4-10.4) fl Immature Gran % (Auto) (0-0.5) % Neut % (Auto) (45.5-73.1) % Lymph % (Auto) (18.3-44.2) % [place] % (Auto) (2.6-8.5) % Eos % (Auto) (0-4.4) % Baso % (Auto) (0.2-1.2) % Lymph # (Auto) (0.9-3.2) K/mm3 [place] # (Auto) (0.1-0.6) K/mm3 Eos # (Auto) (0-0.3) K/mm3 Baso # (Auto) (0.0-0.1) K/mm3 Abs Immat Gran (auto) (0.00-0.031) K/mm3 Absolute Neuts (auto) (1.3-6.7) K/mm3 Absolute Nucleated RBC (0.0-0.012) K/mm3 Nucleated RBC % (0.0-0.2) % Platelet Estimate (Adequate) Large Platelets Hypochromasia Anisocytosis Dania Cells Schistocytes ESR (0-20) mm/hr Sodium Potassium Chloride Carbon Dioxide Anion Gap BUN Creatinine Estim Creat Clear Calc Estimated GFR 36 L Glucose Cancelled 111 H Lactic Acid (0.7-2.0) mmol/L Calcium Cancelled 12.6 H* Phosphorus 3.0 (2.5-4.5) mg/dL Magnesium 1.9 (1.6-2.3) mg/dL Total Bilirubin Cancelled AST ALT Alkaline Phosphatase Total Creatine Kinase (30-135) U/L Troponin I (0.000-0.034) ng/mL C-Reactive Protein (<1.0) mg/dL Total Protein Albumin Lipase (23-300) U/L Urine Color (Yellow) Urine Appearance (Clear) Urine pH (5.0-9.0) Ur Specific Crescent (1.001-1.035) Urine Protein (Negative) mg/dL Urine Glucose (UA) (Negative) mg/dL Urine Ketones (Negative) mg/dL Ur Blood (Man) (Negative) Urine Nitrate (Negative) Urine Bilirubin (Negative) Urine Urobilinogen (<2.0) mg/dL Add Ur Microanalysis Leukocyte Esterase Rfl (Negative) EYAL/UL Urine RBC (0-2) /hpf Urine WBC (0-3) /hpf Ur Squamous Epith Cells (Few) /hpf Urine Bacteria /hpf Urine Casts Influenza A (RT-PCR) (Negative) Influenza B (RT-PCR) (Negative) RSV (RT-PCR) (Negative) SARS-CoV-2 RNA (RT-PCR) (Negative) 02/17/24 02/17/24 02/17/24 Range/Units 18:01 18:01 18:01 WBC (4.5-10.0) K/mm3 RBC (4.2-5.4) M/mm3 Hgb (12.0-15.0) g/dL Hct (37.0-47.0) % MCV (80-100) fl MCH (26-34) pg MCHC (32-36) g/dl RDW (11.5-14.5) % Plt Count (150-375) k/mm3 MPV (7.4-10.4) fl Immature Gran % (Auto) (0-0.5) % Neut % (Auto) (45.5-73.1) % Lymph % (Auto) (18.3-44.2) % [place] % (Auto) (2.6-8.5) % Eos % (Auto) (0-4.4) % Baso % (Auto) (0.2-1.2) % Lymph # (Auto) (0.9-3.2) K/mm3 [place] # (Auto) (0.1-0.6) K/mm3 Eos # (Auto) (0-0.3) K/mm3 Baso # (Auto) (0.0-0.1) K/mm3 Abs Immat Gran (auto) (0.00-0.031) K/mm3 Absolute Neuts (auto) (1.3-6.7) K/mm3 Absolute Nucleated RBC (0.0-0.012) K/mm3 Nucleated RBC % (0.0-0.2) % Platelet Estimate (Adequate) Large Platelets Hypochromasia Anisocytosis Dania Cells Schistocytes ESR (0-20) mm/hr Sodium Potassium Chloride Carbon Dioxide Anion Gap BUN Creatinine Estim Creat Clear Calc Estimated GFR Glucose Lactic Acid (0.7-2.0) mmol/L Calcium Phosphorus (2.5-4.5) mg/dL Magnesium (1.6-2.3) mg/dL Total Bilirubin 0.8 AST Cancelled 49 H ALT Cancelled 15 Alkaline Phosphatase Cancelled Total Creatine Kinase (30-135) U/L Troponin I (0.000-0.034) ng/mL C-Reactive Protein (<1.0) mg/dL Total Protein Albumin Lipase (23-300) U/L Urine Color (Yellow) Urine Appearance (Clear) Urine pH (5.0-9.0) Ur Specific Crescent (1.001-1.035) Urine Protein (Negative) mg/dL Urine Glucose (UA) (Negative) mg/dL Urine Ketones (Negative) mg/dL Ur Blood (Man) (Negative) Urine Nitrate (Negative) Urine Bilirubin (Negative) Urine Urobilinogen (<2.0) mg/dL Add Ur Microanalysis Leukocyte Esterase Rfl (Negative) EYAL/UL Urine RBC (0-2) /hpf Urine WBC (0-3) /hpf Ur Squamous Epith Cells (Few) /hpf Urine Bacteria /hpf Urine Casts Influenza A (RT-PCR) (Negative) Influenza B (RT-PCR) (Negative) RSV (RT-PCR) (Negative) SARS-CoV-2 RNA (RT-PCR) (Negative) 02/17/24 02/17/24 02/17/24 Range/Units 18:01 18:01 18:01 WBC (4.5-10.0) K/mm3 RBC (4.2-5.4) M/mm3 Hgb (12.0-15.0) g/dL Hct (37.0-47.0) % MCV (80-100) fl MCH (26-34) pg MCHC (32-36) g/dl RDW (11.5-14.5) % Plt Count (150-375) k/mm3 MPV (7.4-10.4) fl Immature Gran % (Auto) (0-0.5) % Neut % (Auto) (45.5-73.1) % Lymph % (Auto) (18.3-44.2) % [place] % (Auto) (2.6-8.5) % Eos % (Auto) (0-4.4) % Baso % (Auto) (0.2-1.2) % Lymph # (Auto) (0.9-3.2) K/mm3 [place] # (Auto) (0.1-0.6) K/mm3 Eos # (Auto) (0-0.3) K/mm3 Baso # (Auto) (0.0-0.1) K/mm3 Abs Immat Gran (auto) (0.00-0.031) K/mm3 Absolute Neuts (auto) (1.3-6.7) K/mm3 Absolute Nucleated RBC (0.0-0.012) K/mm3 Nucleated RBC % (0.0-0.2) % Platelet Estimate (Adequate) Large Platelets Hypochromasia Anisocytosis Dania Cells Schistocytes ESR (0-20) mm/hr Sodium Potassium Chloride Carbon Dioxide Anion Gap BUN Creatinine Estim Creat Clear Calc Estimated GFR Glucose Lactic Acid (0.7-2.0) mmol/L Calcium Phosphorus (2.5-4.5) mg/dL Magnesium (1.6-2.3) mg/dL Total Bilirubin AST ALT Alkaline Phosphatase 154 H Total Creatine Kinase 52 (30-135) U/L Troponin I 0.042 H* (0.000-0.034) ng/mL C-Reactive Protein (<1.0) mg/dL Total Protein Cancelled 6.0 L Albumin Cancelled 3.3 L Lipase 53 (23-300) U/L Urine Color (Yellow) Urine Appearance (Clear) Urine pH (5.0-9.0) Ur Specific Crescent (1.001-1.035) Urine Protein (Negative) mg/dL Urine Glucose (UA) (Negative) mg/dL Urine Ketones (Negative) mg/dL Ur Blood (Man) (Negative) Urine Nitrate (Negative) Urine Bilirubin (Negative) Urine Urobilinogen (<2.0) mg/dL Add Ur Microanalysis Leukocyte Esterase Rfl (Negative) EYAL/UL Urine RBC (0-2) /hpf Urine WBC (0-3) /hpf Ur Squamous Epith Cells (Few) /hpf Urine Bacteria /hpf Urine Casts Influenza A (RT-PCR) Negative (Negative) Influenza B (RT-PCR) Negative (Negative) RSV (RT-PCR) Negative (Negative) SARS-CoV-2 RNA (RT-PCR) Negative (Negative) 02/17/24 02/17/24 02/17/24 Range/Units 19:45 21:30 23:21 WBC (4.5-10.0) K/mm3 RBC (4.2-5.4) M/mm3 Hgb (12.0-15.0) g/dL Hct (37.0-47.0) % MCV (80-100) fl MCH (26-34) pg MCHC (32-36) g/dl RDW (11.5-14.5) % Plt Count (150-375) k/mm3 MPV (7.4-10.4) fl Immature Gran % (Auto) (0-0.5) % Neut % (Auto) (45.5-73.1) % Lymph % (Auto) (18.3-44.2) % [place] % (Auto) (2.6-8.5) % Eos % (Auto) (0-4.4) % Baso % (Auto) (0.2-1.2) % Lymph # (Auto) (0.9-3.2) K/mm3 [place] # (Auto) (0.1-0.6) K/mm3 Eos # (Auto) (0-0.3) K/mm3 Baso # (Auto) (0.0-0.1) K/mm3 Abs Immat Gran (auto) (0.00-0.031) K/mm3 Absolute Neuts (auto) (1.3-6.7) K/mm3 Absolute Nucleated RBC (0.0-0.012) K/mm3 Nucleated RBC % (0.0-0.2) % Platelet Estimate (Adequate) Large Platelets Hypochromasia Anisocytosis Dania Cells Schistocytes ESR 103 H (0-20) mm/hr Sodium 131 L Potassium 3.3 L Chloride 103 Carbon Dioxide 20 L Anion Gap 8 BUN 44 H D Creatinine 1.20 H Estim Creat Clear Calc 25 Estimated GFR 43 L Glucose 97 Lactic Acid 0.9 (0.7-2.0) mmol/L Calcium 12.1 H* Phosphorus (2.5-4.5) mg/dL Magnesium (1.6-2.3) mg/dL Total Bilirubin AST ALT Alkaline Phosphatase Total Creatine Kinase (30-135) U/L Troponin I 0.040 H* 0.042 H* (0.000-0.034) ng/mL C-Reactive Protein 16.6 H (<1.0) mg/dL Total Protein Albumin Lipase (23-300) U/L Urine Color Yellow (Yellow) Urine Appearance Clear (Clear) Urine pH 5.5 (5.0-9.0) Ur Specific Crescent 1.011 (1.001-1.035) Urine Protein Trace (Negative) mg/dL Urine Glucose (UA) Negative (Negative) mg/dL Urine Ketones Trace H (Negative) mg/dL Ur Blood (Man) Negative (Negative) Urine Nitrate Positive H (Negative) Urine Bilirubin Negative (Negative) Urine Urobilinogen 0.2 (<2.0) mg/dL Add Ur Microanalysis Reviewed Leukocyte Esterase Rfl 1+ H (Negative) EYAL/UL Urine RBC 0-2 (0-2) /hpf Urine WBC 11-20 H (0-3) /hpf Ur Squamous Epith Cells None seen (Few) /hpf Urine Bacteria 4+ H /hpf Urine Casts 3-5 Influenza A (RT-PCR) (Negative) Influenza B (RT-PCR) (Negative) RSV (RT-PCR) (Negative) SARS-CoV-2 RNA (RT-PCR) (Negative) Urine Characteristics Clear Discharge Plan Discharge Clinical Impression: Psoas abscess, Hypercalcemia UTI (urinary tract infection) Qualifiers: Urinary tract infection type: acute cystitis Hematuria presence: without hematuria Qualified Code(s): N30.00 - Acute cystitis without hematuria Patient Disposition: Still a Patient Condition: Stable
[2024-02-17 18:19] LABS: Basophils Absolute Auto 0.1 K/mm3 (0.0-0.1); Basophils Percent Auto 0.3 % (0.2-1.2); Hematocrit 28.9 % (37.0-47.0); Hemoglobin 9.3 g/dL (12.0-15.0); Immature Granulocyte Absolute 0.28 K/mm3 (0.00-0.031); Lymphocytes Absolute Auto 1.41 K/mm3 (0.9-3.2); Lymphocytes Percent Auto 5.2 % (18.3-44.2); Mean Corpuscular HGB Conc 32.2 g/dl (32-36); Mean Platelet Volume 10.4 fl (7.4-10.4); Monocytes Absolute Auto 1.6 K/mm3 (0.1-0.6); Monocytes Percent Auto 5.8 % (2.6-8.5); Neutrophils Percent Auto 87.7 % (45.5-73.1); Platelet Count Result 800 k/mm3 (150-375); Red Blood Count 3.44 M/mm3 (4.2-5.4); Red Cell Distribution Width 15.1 % (11.5-14.5); White Blood Count 27.3 K/mm3 (4.5-10.0)
[2024-02-17] MEDS: SODIUM CHLORIDE 0.9% IV 1,000 ML 999 ML IV CONT ×3 (18:22→23:53)
[2024-02-17 18:42] LABS: Creatine Kinase 52 U/L (30-135)
[2024-02-17 18:44] LABS: Anisocytosis 1+; Large Platelets Present; Platelet Estimate Increased (Adequate)
[2024-02-17 18:45] LABS: Burr Cells 1+; Hypochromasia 1+; Schistocytes None Seen
[2024-02-17 18:54] LABS: Influenza A QL RT-PCR Negative (Negative); Influenza B QL RT-PCR Negative (Negative); RSV RNA, RT-PCR Negative (Negative); SARS-CoV-2 RNA PCR Negative (Negative)
[2024-02-17 18:56] LABS: Alanine Aminotransferase 15 U/L (6-35); Albumin Level 3.3 g/dL (3.5-5.1); Alkaline Phosphatase 154 U/L (38-126); Anion Gap 6 mmol/L (4-12); Aspartate Amino Transferase 49 U/L (14-36); Bilirubin,Total 0.8 mg/dL (0.2-1.3); Blood Urea Nitrogen 54 mg/dL (7-17); Calcium 12.6 mg/dL (8.4-10.2); Carbon Dioxide 26 mmol/L (22-30); Chloride 97 mmol/L (98-107); Estimated CRCL calculation 21 ml/min; Estimated Glomerular Filt Rate 36; Glucose 111 mg/dL (65-110); Potassium 3.6 mmol/L (3.4-5.0); Sodium 129 mmol/L (137-145); Troponin I 0.042 ng/mL (0.000-0.034)
[2024-02-17 19:21] LABS: Lipase 53 U/L (23-300); Magnesium 1.9 mg/dL (1.6-2.3)
--- NOTE | 2024-02-17 19:36 | PC.NURSE ---
This RN assumed care of pt after receiving report from JEREMY Tyson @ [id number].
[2024-02-17 20:25] LABS: Appearance Urine Clear (Clear); Bacteria Urine 4+ /hpf; Bilirubin Urine Negative (Negative); Blood Urine Negative (Negative); Color Urine Yellow (Yellow); Glucose Urine UA Negative (Negative); Ketones Urine Trace mg/dL (Negative); Leukocyte Esterase Ur 1+ LEU/UL (Negative); Need Manual Microscopic Reviewed; Nitrate Urine Positive (Negative); Protein Urine Trace mg/dL (Negative); RBC Urine 0-2 /hpf (0-2); Specific Grav Ur 1.011 (1.001-1.035); Squamous Epithelial Cell Urine None Seen /hpf (Few); Urobilinogen Urine 0.2 mg/dL (<2.0); pH Urine 5.5 (5.0-9.0)
[2024-02-17 20:30] LABS: Add Urine Microscopic? YES
--- NOTE | 2024-02-17 21:10 | PC.NURSE ---
Elizabeth and RN unsuccessfully attempted for 3 hour trop. Phlebotomy called at this time.
--- NOTE | 2024-02-17 21:43 | ECG_ITS ---
SEE SCANNED COPY FOR CONFIRMED REPORT MTDD
[2024-02-17 23:40] LABS: Lactic Acid Reflex 0.9 mmol/L (0.7-2.0)
[2024-02-17] MEDS: metroNIDAZOLE 500 MG/ISO 100ML 500 MG/100 ML BAG 100 MG IVPB (23:53)
[2024-02-17 23:58] LABS: Erythrocyte Sedimentation Rate 103 mm/hr (0-20)
[2024-02-18] VITALS (9 sets, daily range): BP systolic 130–165; BP diastolic 46–69; PULSE 60–106; RESP 17–20; TEMP 35.8–36.6; O2SAT 96–100
[2024-02-18 00:01] LABS: CRP 16.6 mg/dL (<1.0)
--- NOTE | 2024-02-18 00:13 | ECG_ITS ---
SEE SCANNED COPY FOR CONFIRMED REPORT MTDD
[2024-02-18 00:52] LABS: Troponin I 0.042 ng/mL (0.000-0.034)
[2024-02-18 00:53] LABS: Anion Gap 8 mmol/L (4-12); Blood Urea Nitrogen 44 mg/dL (7-17); Calcium 12.1 mg/dL (8.4-10.2); Carbon Dioxide 20 mmol/L (22-30); Chloride 103 mmol/L (98-107); Estimated CRCL calculation 25 ml/min; Estimated Glomerular Filt Rate 43; Glucose 97 mg/dL (65-110); Potassium 3.3 mmol/L (3.4-5.0); Sodium 131 mmol/L (137-145)
--- NOTE | 2024-02-18 01:30 | PC.NURSE ---
Called to give report to JEREMY Betancourt. RN stated he had not looked over the chart yet and would call back with questions.
[2024-02-18] MEDS: levoFLOXacin 750 MG/D5W 150 ML 750 MG/150 ML BAG 100 MG IVPB (01:36)
--- NOTE | 2024-02-18 02:13 | PC.NURSE ---
Pt IV infiltrated while being taken upstairs. Meds stopped. Charge, JAZMIN, vocational rehabilitation supervisor, and JEREMY Betancourt notified.
--- NOTE | 2024-02-18 03:58 | ADMGEN ---
This patient, Gely Hi, was admitted to 2 Medical Room 247-. Patient/family oriented to hospital policies and general routines including ID bracelet, bed and alarms, visiting hours, pain management, procedures, bathroom and other care routines, personal items, smoking policy, room service/diet, and visiting hours. Information on how to activate the Rapid Response Team has been discussed. Patient/Family are encouraged to report perceived risks to care and to ask questions if they do not understand what they are told or what they should do.
[2024-02-18] MEDS: metroNIDAZOLE 500 MG/ISO 100ML 500 MG/100 ML BAG 100 MG IVPB ×3 (08:25→23:50)
--- NOTE | 2024-02-18 12:13 | P.HP_ITS ---
H&P: HPI History of Present Illness Date/Time: 02/18/24 12:13 Chief Complaint: Patient brought to the ER for evaluation with complaints of generalized weakness Narrative: Our patient is a 83 year old white female with chronic multiple medical issues who lives at home with her daughter. She is complaining of feeling weak, tired with generalized fatigue which is getting worse over the last few days. She has not been tolerating any oral intake and is unable to get out of the bed and has very little motivation. When asked by the ER physician why she is here, she responded ? because I am dying . Workup was done in the ED which showed significant leukocytosis, multiple lab abnormalities, dehydration and hyperkalemia. Urinalysis was significant for UTI. CT scan of the chest abdomen and pelvis done which showed Large right psoas abscess, measuring up to 19.7 cm, which may extend from the inferior pole the right kidney. A 3.4 cm left perirenal collection, a suspected abscess, was also present. ER physician spoke with the General surgery who recommended urology consultation as the origin is possibly from right kidney. She has been treated aggressively with IV fluids and IV antibiotics in the ED. She is being admitted for medical management, IV antibiotics, Urology evaluation, further evaluation and workup including possible surgical intervention. Review of Systems Review of Systems: She denies any chest pain, palpitations, shortness of breath, hematuria, diarrhea, headaches or vision changes. 14 systems were reviewed with pertinent positives and negatives per HPI. Except as documented in the HPI/progress notes, all other systems were reviewed and are negative. All systems reviewed & are unremarkable except as noted in HPI and below PMFSH Past Medical History Medical History A-fib Encounter for removal of skin lesion Gout Hypertension Osteoporosis Paroxysmal A-fib Skin cancer Surgical History Surgical History H/O cataract extraction H/O lumpectomy H/O tubal ligation History of appendectomy History of removal of pigmented skin lesion Family History Family History Mother Alzheimer's dementia Hypothyroidism Father Cancer Diabetes mellitus Social History Social History Social History: she has 2 daughters and is . she lives with her daughter. 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 She does not use any drugs alcohol or marijuana. code status full code Smoking status: Former smoker Alcohol intake: current Drinks per week: 1 Substance use: unknown Do You Feel Safe in your Home?: Yes Lack of Transportation: No Lack of Food: Never True Current Housing: I Have Housing Concerned About Future Housing: No Difficulty Paying Gas/Electric Bills: No Difficulty Paying for Meds: No Currently Unemployed: No Education: Don't Know Difficulty w/ Childcare or Family Care: No Spiritual care concerns: No Meds Home Medications and Allergies Home Medications Medication Instructions Recorded Confirmed Type alendronate-vitamin D3 1,000 unit PO DAILY 02/27/23 02/18/24 History allopurinol 300 mg tablet 300 mg PO DAILY 02/27/23 02/18/24 History ascorbate calcium (vitamin C) 500 mg PO DAILY 02/27/23 02/18/24 History hydralazine 100 mg tablet 100 mg PO DAILY 02/27/23 02/18/24 History metoprolol succinate 100 mg 50 mg PO DAILY 02/27/23 02/18/24 History tablet,extended release 24 hr rivaroxaban 15 mg tablet (Xarelto) 15 mg PO DAILY 02/27/23 02/18/24 History valsartan 80 1 tablet PO DAILY 02/27/23 02/18/24 History mg-hydrochlorothiazide 12.5 mg tablet vitamin B complex 1 tablet PO DAILY 02/18/24 02/18/24 History Allergies Allergy/AdvReac Type Severity Reaction Status Date / Time atorvastatin Allergy Muscle Pain Verified 02/17/24 22:02 Cephalosporins Allergy Unknown Verified 02/17/24 16:05 clindamycin Allergy Unknown Verified 02/17/24 16:05 codeine Allergy Unknown Verified 02/17/24 16:05 meperidine Allergy Unknown Verified 02/17/24 16:05 morphine Allergy Unknown Verified 02/17/24 16:05 Penicillins Allergy Fainting Verified 02/17/24 22:01 propoxyphene Allergy Unknown Verified 02/17/24 16:05 rosuvastatin Allergy Unknown Verified 02/17/24 22:03 Sulfa (Sulfonamide Allergy Other Verified 02/17/24 22:05 Antibiotics) tramadol Allergy Unknown Verified 02/17/24 16:05 Vital Signs Vital Signs - 24 hr 02/17/24 15:58 02/17/24 17:13 02/17/24 16:53 Temperature 36.3 C L 36.6 C Pulse Rate 72 65 Respiratory Rate 16 16 25 H Blood Pressure 131/35 L 137/38 L Pulse Oximetry 96 98 99 Oxygen Delivery Room Air Room Air 02/17/24 16:54 02/17/24 17:13 02/17/24 17:15 Temperature Pulse Rate 68 67 Respiratory Rate 17 17 19 Blood Pressure 137/38 L Pulse Oximetry 100 Oxygen Delivery 02/17/24 17:41 02/17/24 17:45 02/17/24 18:00 Temperature Pulse Rate 94 73 74 Respiratory Rate 18 16 16 Blood Pressure Pulse Oximetry Oxygen Delivery 02/17/24 18:15 02/17/24 19:34 02/17/24 21:27 Temperature Pulse Rate 71 67 102 H Respiratory Rate 20 20 19 Blood Pressure 136/44 L Pulse Oximetry 100 96 Oxygen Delivery 02/18/24 00:11 02/18/24 01:40 02/18/24 04:09 Temperature Pulse Rate 75 106 H Respiratory Rate 17 20 Blood Pressure 144/69 H 130/64 Pulse Oximetry 96 97 Oxygen Delivery Room Air 02/18/24 04:13 02/18/24 04:00 02/18/24 08:25 Temperature 36.6 C Pulse Rate 99 60 Respiratory Rate 18 Blood Pressure 135/52 L Pulse Oximetry 99 Oxygen Delivery Room Air Exam Narrative: PHYSICAL EXAMINATION: Vital signs: Please see the chart General physical exam: Patient lying in bed, cooperative with exam, appears to be weak tired and fatigued Head/eyes: Atraumatic, EOMI, PERRLA ENT: +dry mucous membranes, nasal passages clear Neck: Supple, full range of motion, trachea midline CVS: S1 + S2, regular rate and rhythm, no murmurs Respiratory: Bilaterally fair air entry in both lung noriega, mild B/L crackles, symmetric chest expansion, no distress Abdomen: Soft, non-tender, bowel sounds +ve, no organomegaly Urology: + right CVA tenderness on deep palpation, no suprapubic tenderness Extremities: No clubbing, no cyanosis, no edema, no calf tenderness Musculoskeletal: Moves all, adequate range of motion, no muscle spasms Skin: Warm, dry, no jaundice, no cyanosis Neurological: Awake, alert, oriented x 3, cranial nerves II-XII intact, no focal neurological deficits Psychiatric: Cooperative with normal mood and affect.? Judgment and insight intact. Non suicidal H&P: Results Labs Labs: Short CBC 02/17/24 Range/Units 18:01 WBC 27.3 H (4.5-10.0) K/mm3 Hgb 9.3 L (12.0-15.0) g/dL Hct 28.9 L (37.0-47.0) % Plt Count 800 H D (150-375) k/mm3 BMP 02/17/24 02/17/24 02/17/24 18:01 18:01 18:01 Sodium Cancelled 129 L Potassium Cancelled 3.6 Chloride Cancelled Carbon Dioxide BUN Creatinine Glucose Calcium 02/17/24 02/17/24 02/17/24 18:01 18:01 18:01 Sodium Potassium Chloride 97 L Carbon Dioxide Cancelled 26 BUN Cancelled 54 H D Creatinine Cancelled Glucose Calcium 02/17/24 02/17/24 02/17/24 18:01 18:01 18:01 Sodium Potassium Chloride Carbon Dioxide BUN Creatinine 1.40 H Glucose Cancelled 111 H Calcium Cancelled 12.6 H* 02/17/24 23:21 Sodium 131 L Potassium 3.3 L Chloride 103 Carbon Dioxide 20 L BUN 44 H D Creatinine 1.20 H Glucose 97 Calcium 12.1 H* Cardiac Enzymes 02/17/24 02/17/24 02/17/24 Range/Units 18:01 21:30 23:21 Total Creatine Kinase 52 (30-135) U/L Troponin I 0.042 H* 0.040 H* 0.042 H* (0.000-0.034) ng/mL Liver Function 02/17/24 02/17/24 02/17/24 Range/Units 18:01 18:01 18:01 Total Bilirubin Cancelled 0.8 AST Cancelled 49 H ALT Cancelled Alkaline Phosphatase Albumin 02/17/24 02/17/24 02/17/24 Range/Units 18:01 18:01 18:01 Total Bilirubin AST ALT 15 Alkaline Phosphatase Cancelled 154 H Albumin Cancelled 3.3 L Urine 02/17/24 Range/Units 19:45 Urine Color Yellow (Yellow) Urine Appearance Clear (Clear) Urine pH 5.5 (5.0-9.0) Ur Specific [place] 1.011 (1.001-1.035) Urine Protein Trace (Negative) mg/dL Urine Glucose (UA) Negative (Negative) mg/dL Assessment and Plan Assessment and plan (1) Psoas abscess: Code(s): K68.12 - Psoas muscle abscess Status: Acute (2) Hypercalcemia: Code(s): E83.52 - Hypercalcemia Status: Acute (3) UTI (urinary tract infection): Qualifiers: Hematuria presence: without hematuria Urinary tract infection type: acute cystitis Qualified Code(s): N30.00 - Acute cystitis without hematuria Code(s): N39.0 - Urinary tract infection, site not specified Status: Acute (4) DIAZ (acute kidney injury): Code(s): N17.9 - Acute kidney failure, unspecified Status: Acute (5) Urine retention: Code(s): R33.9 - Retention of urine, unspecified Status: Acute (6) Paroxysmal A-fib: Code(s): I48.0 - Paroxysmal atrial fibrillation Status: Acute (7) Osteoporosis: Code(s): M81.0 - Age-related osteoporosis without current pathological fracture Status: Acute (8) Gout: Code(s): M10.9 - Gout, unspecified Status: Acute (9) Hypertension: Code(s): I10 - Essential (primary) hypertension Status: Acute (10) FISHER (dyspnea on exertion): Code(s): R06.09 - Other forms of dyspnea Status: Acute (11) Pulmonary edema: Qualifiers: Chronicity: acute Qualified Code(s): J81.0 - Acute pulmonary edema Code(s): J81.1 - Chronic pulmonary edema Status: Acute (12) Acute UTI: Code(s): N39.0 - Urinary tract infection, site not specified Status: Acute Assessment and Plan: Admit patient to medical unit under full inpatient status Patient has right psoas abscess, UTI, dehydration, hyperkalemia and multiple electrolyte abnormalities Patient's finding point towards possible infectious versus neoplastic process Patient received 3 L of IV normal saline in the ER Patient started on IV Levaquin and metronidazole in the ER which will continue on the floor CT abdomen pelvis shows Large right psoas abscess, measuring up to 19.7 cm, which may extend from the inferior pole the right kidney. A 3.4 cm left perirenal collection, a suspected abscess, is also present Patient kept NPO except meds Urology consult given for evaluation and further treatment recommendations regarding possible consideration for surgery/psoas drain placement Patient started on IV hydration with D5 normal saline with 20 mEq KCL at 100 cc/hour Patient has mild hypokalemia which be treated with IV fluids as above Neurology consult given for evaluation of DIAZ, electrolyte imbalance and hyperkalemia PT/OT evaluation ordered ? Patient seen and examined at bedside during my morning rounds ? Collaborated with patient's nurse at the bedside in detail and addressed all concerns ? Labs, electrolytes, radiology, investigations and test results reviewed ? Consult/Nursing/Ancilliary notes on the chart reviewed and appreciated ? Spoke with patient/family at the bedside and answered all the questions that they had Repeat labs in a.m. Electrolyte replacement as per protocol. Patient will be monitored very closely on the floor. Further recommendations as per the hospital course. Quality VTE Prophylaxis VTE prophylaxis: mechanical ordered
[2024-02-18] MEDS: KCL 20MEQ/0.9% SOD CHL 1,000 ML 100 ML IV CONT ×2 (12:16→23:45)
--- NOTE | 2024-02-18 12:22 | WPDURCON ---
Assessment and Plan Assessment and plan (1) Psoas abscess: Code(s): K68.12 - Psoas muscle abscess Status: Acute Assessment and Plan: Noted to have markedly enlarged right psoas abscess. Recommend CT guided abscess drainage by IR. Reviewed imaging with Dr. Oquendo and Dr. Siu (IR). Would recommend further evaluation by General Surgery, will place consult. No additional urologic intervention is required. (2) Abnormal urinalysis: Code(s): R82.90 - Unspecified abnormal findings in urine Status: Acute Assessment and Plan: UA is abnormal, concerning for infection though she is asymptomatic. Await results of urine culture. She remains on empiric antibiotics in light of abscess as above. Urology Consult Note HPI Date Seen: 02/18/24 Requesting Physician: Arsenio Doyle MD Primary Care Provider: Osmel Moe, Consult Narrative Narrative: Gely Hi is a 83 year old female with a history of atrial fibrillation on chronic anticoagulation who is being seen in consultation for evaluation of a large psoas abscess. She presented to the ER on 02/17/24 with complaints of generalized weakness and dizziness. On arrival, her vital signs were stable, she was afebrile, white blood cell count markedly elevated at 27.3, hemoglobin 9.3, platelets 800, creatinine 1.2, UA with leukocytes, nitrates, and 11-[address] of the chest/abdomen/pelvis demonstrated a large right psoas abscess that appears to extend from the inferior pole of the right kidney as well as a smaller retroperitoneal abscess posterior to the left kidney, however kidneys themselves appear normal with no mass, stone, or hydro. Blood and urine cultures are pending. At the time my evaluation, the patient reports that she is feeling well. She denies any abdominal pain, flank pain, or back pain. She denies nausea, vomiting, fever, or chills. Denies dysuria or hematuria. She does report that she has lost weight over the past several months and feels chronically weak and dizzy. Her appetite has decreased. She has no prior urologic issues. Review of Systems Review of Systems: All systems reviewed & are unremarkable except as noted in HPI and below PMFSH Past Medical History Medical History A-fib Encounter for removal of skin lesion Gout Hypertension Osteoporosis Paroxysmal A-fib Skin cancer Surgical History Surgical History H/O cataract extraction H/O lumpectomy H/O tubal ligation History of appendectomy History of removal of pigmented skin lesion Family History Family History Mother Alzheimer's dementia Hypothyroidism Father Cancer Diabetes mellitus Social History Social History Social History: she has 2 daughters and is . she lives with her daughter. She is retired from [employer] lifelong nonsmoker. She does not use any drugs alcohol or marijuana. code status full code Smoking status: Former smoker Alcohol intake: current Drinks per week: 1 Substance use: unknown Do You Feel Safe in your Home?: Yes Lack of Transportation: No Lack of Food: Never True Current Housing: I Have Housing Concerned About Future Housing: No Difficulty Paying Gas/Electric Bills: No Difficulty Paying for Meds: No Currently Unemployed: No Education: Don't Know Difficulty w/ Childcare or Family Care: No Spiritual care concerns: No Meds Home Medications and Allergies Home Medications Medication Instructions Recorded Confirmed Type alendronate-vitamin D3 1,000 unit PO DAILY 02/27/23 02/18/24 History allopurinol 300 mg tablet 300 mg PO DAILY 02/27/23 02/18/24 History ascorbate calcium (vitamin C) 500 mg PO DAILY 02/27/23 02/18/24 History hydralazine 100 mg tablet 100 mg PO DAILY 02/27/23 02/18/24 History metoprolol succinate 100 mg 50 mg PO DAILY 02/27/23 02/18/24 History tablet,extended release 24 hr rivaroxaban 15 mg tablet (Xarelto) 15 mg PO DAILY 02/27/23 02/18/24 History valsartan 80 1 tablet PO DAILY 02/27/23 02/18/24 History mg-hydrochlorothiazide 12.5 mg tablet vitamin B complex 1 tablet PO DAILY 02/18/24 02/18/24 History Allergies Allergy/AdvReac Type Severity Reaction Status Date / Time atorvastatin Allergy Muscle Pain Verified 02/17/24 22:02 Cephalosporins Allergy Unknown Verified 02/17/24 16:05 clindamycin Allergy Unknown Verified 02/17/24 16:05 codeine Allergy Unknown Verified 02/17/24 16:05 meperidine Allergy Unknown Verified 02/17/24 16:05 morphine Allergy Unknown Verified 02/17/24 16:05 Penicillins Allergy Fainting Verified 02/17/24 22:01 propoxyphene Allergy Unknown Verified 02/17/24 16:05 rosuvastatin Allergy Unknown Verified 02/17/24 22:03 Sulfa (Sulfonamide Allergy Other Verified 02/17/24 22:05 Antibiotics) tramadol Allergy Unknown Verified 02/17/24 16:05 Vital Signs Vital Signs - 24 hr 02/17/24 15:58 02/17/24 17:13 02/17/24 16:53 Temperature 97.4 F L 97.8 F Pulse Rate 72 65 Respiratory Rate 16 16 25 H Blood Pressure 131/35 L 137/38 L Pulse Oximetry 96 98 99 Oxygen Delivery Room Air Room Air 02/17/24 16:54 02/17/24 17:13 02/17/24 17:15 Temperature Pulse Rate 68 67 Respiratory Rate 17 17 19 Blood Pressure 137/38 L Pulse Oximetry 100 Oxygen Delivery 02/17/24 17:41 02/17/24 17:45 02/17/24 18:00 Temperature Pulse Rate 94 73 74 Respiratory Rate 18 16 16 Blood Pressure Pulse Oximetry Oxygen Delivery 02/17/24 18:15 02/17/24 19:34 02/17/24 21:27 Temperature Pulse Rate 71 67 102 H Respiratory Rate 20 20 19 Blood Pressure 136/44 L Pulse Oximetry 100 96 Oxygen Delivery 02/18/24 00:11 02/18/24 01:40 02/18/24 04:09 Temperature Pulse Rate 75 106 H Respiratory Rate 17 20 Blood Pressure 144/69 H 130/64 Pulse Oximetry 96 97 Oxygen Delivery Room Air 02/18/24 04:13 02/18/24 04:00 02/18/24 08:25 Temperature 97.9 F Pulse Rate 99 60 Respiratory Rate 18 Blood Pressure 135/52 L Pulse Oximetry 99 Oxygen Delivery Room Air Exam Narrative: General: Awake, alert, comfortable, no acute distress HEENT: Normocephalic, atraumatic, sclerae anicteric Respiratory: Normal respiratory effort, no accessory muscle use Abdomen: Nondistended, soft, nontender Skin: Normal coloration, warm and dry Neurologic: No focal neuro deficits noted Psychiatric: Appropriate mood and affect, judgment and insight intact Results Labs 02/17/24 18:01 02/17/24 23:21 Labs: Short CBC 02/17/24 Range/Units 18:01 WBC 27.3 H (4.5-10.0) K/mm3 Hgb 9.3 L (12.0-15.0) g/dL Hct 28.9 L (37.0-47.0) % Plt Count 800 H D (150-375) k/mm3 BMP 02/17/24 02/17/24 02/17/24 18:01 18:01 18:01 Sodium Cancelled 129 L Potassium Cancelled 3.6 Chloride Cancelled Carbon Dioxide BUN Creatinine Glucose Calcium 02/17/24 02/17/24 02/17/24 18:01 18:01 18:01 Sodium Potassium Chloride 97 L Carbon Dioxide Cancelled 26 BUN Cancelled 54 H D Creatinine Cancelled Glucose Calcium 02/17/24 02/17/24 02/17/24 18:01 18:01 18:01 Sodium Potassium Chloride Carbon Dioxide BUN Creatinine 1.40 H Glucose Cancelled 111 H Calcium Cancelled 12.6 H* 02/17/24 23:21 Sodium 131 L Potassium 3.3 L Chloride 103 Carbon Dioxide 20 L BUN 44 H D Creatinine 1.20 H Glucose 97 Calcium 12.1 H* Cardiac Enzymes 02/17/24 02/17/24 02/17/24 Range/Units 18:01 21:30 23:21 Total Creatine Kinase 52 (30-135) U/L Troponin I 0.042 H* 0.040 H* 0.042 H* (0.000-0.034) ng/mL Liver Function 02/17/24 02/17/24 02/17/24 Range/Units 18:01 18:01 18:01 Total Bilirubin Cancelled 0.8 AST Cancelled 49 H ALT Cancelled Alkaline Phosphatase Albumin 02/17/24 02/17/24 02/17/24 Range/Units 18:01 18:01 18:01 Total Bilirubin AST ALT 15 Alkaline Phosphatase Cancelled 154 H Albumin Cancelled 3.3 L Urine 02/17/24 Range/Units 19:45 Urine Color Yellow (Yellow) Urine Appearance Clear (Clear) Urine pH 5.5 (5.0-9.0) Ur Specific [place] 1.011 (1.001-1.035) Urine Protein Trace (Negative) mg/dL Urine Glucose (UA) Negative (Negative) mg/dL
[2024-02-18 13:40] LABS: INR 1.9; Partial Thromboplastin Time 21.7 Seconds (22.3-36.8); Prothrombin Time 23.4 Seconds (11.1-14.7)
--- NOTE | 2024-02-18 14:02 | PC.NURSE ---
Patient off of unit to CT
--- NOTE | 2024-02-18 14:11 | PM.CNGS ---
Assessment and Plan Assessment and plan (1) Psoas abscess: Code(s): K68.12 - Psoas muscle abscess Status: Acute Assessment and Plan: Will proceed with CT-guided percutaneous drainage. Will watch the retroperitoneal, much smaller, left-sided abscess posterior to the left kidney for now. Etiology of the abscess not clear but location suspicious for urologic source. No sign of bowel perforation or leakage noted on CT. (2) Abnormal urinalysis: Code(s): R82.90 - Unspecified abnormal findings in urine Status: Acute Assessment and Plan: Cultures are being processed and antibiotics have been started. (3) Urine retention: Code(s): R33.9 - Retention of urine, unspecified Status: Acute Assessment and Plan: Noted to have urinary retention on admission 1 year ago. Bladder seems distended on CT scan to me and patient has history of urinary retention. I will go ahead and place a Rodríguez catheter for now. (4) Hypercalcemia: Code(s): E83.52 - Hypercalcemia Status: Acute Assessment and Plan: 12.6 on admission, 12.1 today. Etiology of this not clear to me at this point. (5) Paroxysmal A-fib: Code(s): I48.0 - Paroxysmal atrial fibrillation Status: Chronic Assessment and Plan: Currently in sinus rhythm (6) Chronic anticoagulation: Code(s): Z79.01 - ocean transportation intermediary (current) use of anticoagulants Status: Chronic Assessment and Plan: Hold Xarelto. History of Present Illness Consult details Consult date: 02/18/24 Reason for consult: other (Retroperitoneal abscess) Requesting physician: Arsenio Doyle MD Narrative: Patient is an 83-year-old woman who lives with 1 of her daughters. She has atrial fibrillation and takes Xarelto. She also takes metoprolol, hydralazine and valsartan hydrochlorothiazide. She was brought to the emergency room by her daughters yesterday with complaints of weakness and not eating. She could hardly get out of bed. She has do not resuscitate status but if an infection is found would like to have that treated. She was noted in the emergency room to [place] [id number] with a significant left shift. She is anemic with a hemoglobin of 9.3. Interestingly her platelet count was [id number] which is a new finding. Her calcium was also quite elevated at 12.6. She under went a full-body chest, abdomen, and pelvis CT scan which revealed a very large right psoas retroperitoneal abscess extending all the way from the right kidney down into the pelvis. She had a smaller, 3.4 cm, abscess behind the left kidney.By my review, it appears that her bladder is distended. I also reviewed her admission in February of 2023. I reviewed that CT scan as well. Interestingly, she was noted to have urinary retention and a very dilated urinary bladder on that admission. At that time, some small amounts of air were noted in the bladder and no abscesses were seen. She had a urinary tract infection from E coli which was sensitive to all antibiotics tested. On this admission, her urinalysis is also very suspicious for a urinary tract infection. Urology has seen the patient but feels this is a non urologic problem. We were, therefore, consulted. Patient has been started on Levaquin and metronidazole. She has multiple drug allergies. She is not in any pain now but still feels very tired and weak. She is somewhat hungry. She is seen now in consultation. Two daughters, Shadia and Pamela, were present during my evaluation. Review of Systems Review of Systems: All systems reviewed & are unremarkable except as noted in HPI and below (HPI and those items noted below) Constitutional: Constitutional: Denies chills and Denies fever(s) Cardiovascular: Cardiovascular: Denies chest pain, Denies diaphoresis, Denies dyspnea and Denies paroxysmal nocturnal dyspnea Respiratory: Respiratory: Denies chest congestion, Denies cough and Denies dyspnea Gastrointestinal: Gastrointestinal: Reports other ( Lower abdominal subcutaneous mass has been present for 15 years, no sx) Genitourinary: Genitourinary: Reports as per HPI Integumentary/Breasts: Skin/Breast: Denies lesions and Denies rash PMFSH Past Medical History Medical History A-fib Encounter for removal of skin lesion Gout Hypertension Osteoporosis Paroxysmal A-fib Skin cancer Surgical History Surgical History H/O cataract extraction H/O lumpectomy H/O tubal ligation History of appendectomy History of removal of pigmented skin lesion Family History Family History Mother Alzheimer's dementia Hypothyroidism Father Cancer Diabetes mellitus Social History Social History Social History: she has 2 daughters and is . she lives with her daughter. She is retired from [employer] lifelong nonsmoker. She does not use any drugs alcohol or marijuana. code status full code Smoking status: Former smoker Alcohol intake: current Drinks per week: 1 Substance use: unknown Do You Feel Safe in your Home?: Yes Lack of Transportation: No Lack of Food: Never True Current Housing: I Have Housing Concerned About Future Housing: No Difficulty Paying Gas/Electric Bills: No Difficulty Paying for Meds: No Currently Unemployed: No Education: Don't Know Difficulty w/ Childcare or Family Care: No Spiritual care concerns: No Meds Home Medications and Allergies Home Medications Medication Instructions Recorded Confirmed Type alendronate-vitamin D3 1,000 unit PO DAILY 02/27/23 02/18/24 History allopurinol 300 mg tablet 300 mg PO DAILY 02/27/23 02/18/24 History ascorbate calcium (vitamin C) 500 mg PO DAILY 02/27/23 02/18/24 History hydralazine 100 mg tablet 100 mg PO DAILY 02/27/23 02/18/24 History metoprolol succinate 100 mg 50 mg PO DAILY 02/27/23 02/18/24 History tablet,extended release 24 hr rivaroxaban 15 mg tablet (Xarelto) 15 mg PO DAILY 02/27/23 02/18/24 History valsartan 80 1 tablet PO DAILY 02/27/23 02/18/24 History mg-hydrochlorothiazide 12.5 mg tablet vitamin B complex 1 tablet PO DAILY 02/18/24 02/18/24 History Allergies Allergy/AdvReac Type Severity Reaction Status Date / Time atorvastatin Allergy Muscle Pain Verified 02/17/24 22:02 Cephalosporins Allergy Unknown Verified 02/17/24 16:05 clindamycin Allergy Unknown Verified 02/17/24 16:05 codeine Allergy Unknown Verified 02/17/24 16:05 meperidine Allergy Unknown Verified 02/17/24 16:05 morphine Allergy Unknown Verified 02/17/24 16:05 Penicillins Allergy Fainting Verified 02/17/24 22:01 propoxyphene Allergy Unknown Verified 02/17/24 16:05 rosuvastatin Allergy Unknown Verified 02/17/24 22:03 Sulfa (Sulfonamide Allergy Other Verified 02/17/24 22:05 Antibiotics) tramadol Allergy Unknown Verified 02/17/24 16:05 Vital Signs Vital Signs - 24 hr 02/17/24 15:58 02/17/24 17:13 02/17/24 16:53 Temperature 36.3 C L 36.6 C Pulse Rate 72 65 Respiratory Rate 16 16 25 H Blood Pressure 131/35 L 137/38 L Pulse Oximetry 96 98 99 Oxygen Delivery Room Air Room Air 02/17/24 16:54 02/17/24 17:13 02/17/24 17:15 Temperature Pulse Rate 68 67 Respiratory Rate 17 17 19 Blood Pressure 137/38 L Pulse Oximetry 100 Oxygen Delivery 02/17/24 17:41 02/17/24 17:45 02/17/24 18:00 Temperature Pulse Rate 94 73 74 Respiratory Rate 18 16 16 Blood Pressure Pulse Oximetry Oxygen Delivery 02/17/24 18:15 02/17/24 19:34 02/17/24 21:27 Temperature Pulse Rate 71 67 102 H Respiratory Rate 20 20 19 Blood Pressure 136/44 L Pulse Oximetry 100 96 Oxygen Delivery 02/18/24 00:11 02/18/24 01:40 02/18/24 04:09 Temperature Pulse Rate 75 106 H Respiratory Rate 17 20 Blood Pressure 144/69 H 130/64 Pulse Oximetry 96 97 Oxygen Delivery Room Air 02/18/24 04:13 02/18/24 04:00 02/18/24 08:25 Temperature 36.6 C Pulse Rate 99 60 Respiratory Rate 18 Blood Pressure 135/52 L Pulse Oximetry 99 Oxygen Delivery Room Air 02/18/24 08:00 02/18/24 12:00 Temperature Pulse Rate 63 62 Respiratory Rate Blood Pressure Pulse Oximetry Oxygen Delivery Exam Const: General: comfortable, ill appearing, lethargic, tired appearing, thin and underweight HENMT: Head: normocephalic and atraumatic Mouth: Yes Normal oral and palatal mucosa present Eyes: Conjunctivae: conjunctivae normal Pupils: Equal, round and reactive pupils present EOM: EOMs intact bilaterally Neck: Neck: normal visual inspection, no lymphadenopathy and nontender Resp: Effort & Inspection: normal respiratory effort Auscultation: clear to auscultation bilaterally Cardio: Rate: regular rate Rhythm: regular rhythm Heart sounds: no gallops, no murmurs and no rubs GI: Inspection: non-distended, scaphoid and other ( Subcutaneous lump noted lower abdomen near midline) GI Palp: Yes Soft to palpation, No Tenderness to palpation present (GI), No Hepatomegaly present, No Splenomegaly present and Yes Palpable mass present ( 4 x 3 cm subcutaneous mass lower abdominal midline consistent with lipoma) Skin: Lesions: no lesions Rashes: no rashes Neuro: General: no focal motor deficits and CN's II-XI intact bilaterally Cranial nerves: Yes Equal, round and reactive pupils present, Yes Bilaterally intact EOM present, Yes facial symmetry and Yes Midline tongue present Speech: normal speech Motor exam (neuro): 5/5 motor strength present throughout and Motor abnormalities not present Extrem: General: no clubbing, cyanosis or edema and edema Psych: Speech and movement: Clear speech present Affect: Sad affect present Attitude: cooperative Thought process: Normal thought process present Results Labs 02/17/24 18:01 02/17/24 23:21 Labs: Abnormal lab results 02/17/24 02/17/24 02/17/24 Range/Units 18:01 19:45 21:30 WBC 27.3 H (4.5-10.0) K/mm3 RBC 3.44 L (4.2-5.4) M/mm3 Hgb 9.3 L (12.0-15.0) g/dL Hct 28.9 L (37.0-47.0) % RDW 15.1 H (11.5-14.5) % Plt Count 800 H D (150-375) k/mm3 Immature Gran % (Auto) 1.0 H (0-0.5) % Neut % (Auto) 87.7 H (45.5-73.1) % Lymph % (Auto) 5.2 L (18.3-44.2) % [place] # (Auto) 1.6 H (0.1-0.6) K/mm3 Abs Immat Gran (auto) 0.28 H (0.00-0.031) K/mm3 Absolute Neuts (auto) 24.0 H (1.3-6.7) K/mm3 ESR (0-20) mm/hr PT (11.1-14.7) Seconds APTT (22.3-36.8) Seconds Sodium 129 L (137-145) mmol/L Potassium (3.4-5.0) mmol/L Chloride 97 L (98-107) mmol/L Carbon Dioxide (22-30) mmol/L BUN 54 H D (7-17) mg/dL Creatinine 1.40 H (0.7-1.0) mg/dL Estimated GFR 36 L (59 - ) Glucose 111 H (65-110) mg/dL Calcium 12.6 H* (8.4-10.2) mg/dL AST 49 H (14-36) U/L Alkaline Phosphatase 154 H (38-126) U/L Troponin I 0.042 H* 0.040 H* (0.000-0.034) ng/mL C-Reactive Protein (<1.0) mg/dL Total Protein 6.0 L (6.3-8.2) g/dL Albumin 3.3 L (3.5-5.1) g/dL Urine Ketones Trace H (Negative) mg/dL Urine Nitrate Positive H (Negative) Leukocyte Esterase Rfl 1+ H (Negative) EYAL/UL Urine WBC 11-20 H (0-3) /hpf Urine Bacteria 4+ H /hpf 02/17/24 02/18/24 Range/Units 23:21 13:22 WBC (4.5-10.0) K/mm3 RBC (4.2-5.4) M/mm3 Hgb (12.0-15.0) g/dL Hct (37.0-47.0) % RDW (11.5-14.5) % Plt Count (150-375) k/mm3 Immature Gran % (Auto) (0-0.5) % Neut % (Auto) (45.5-73.1) % Lymph % (Auto) (18.3-44.2) % [place] # (Auto) (0.1-0.6) K/mm3 Abs Immat Gran (auto) (0.00-0.031) K/mm3 Absolute Neuts (auto) (1.3-6.7) K/mm3 ESR 103 H (0-20) mm/hr PT 23.4 H (11.1-14.7) Seconds APTT 21.7 L (22.3-36.8) Seconds Sodium 131 L (137-145) mmol/L Potassium 3.3 L (3.4-5.0) mmol/L Chloride (98-107) mmol/L Carbon Dioxide 20 L (22-30) mmol/L BUN 44 H D (7-17) mg/dL Creatinine 1.20 H (0.7-1.0) mg/dL Estimated GFR 43 L (59 - ) Glucose (65-110) mg/dL Calcium 12.1 H* (8.4-10.2) mg/dL AST (14-36) U/L Alkaline Phosphatase (38-126) U/L Troponin I 0.042 H* (0.000-0.034) ng/mL C-Reactive Protein 16.6 H (<1.0) mg/dL Total Protein (6.3-8.2) g/dL Albumin (3.5-5.1) g/dL Urine Ketones (Negative) mg/dL Urine Nitrate (Negative) Leukocyte Esterase Rfl (Negative) EYAL/UL Urine WBC (0-3) /hpf Urine Bacteria /hpf Diabetes panel 02/17/24 02/17/24 02/17/24 Range/Units 18:01 18:01 18:01 Sodium Cancelled 129 L Potassium Cancelled 3.6 Chloride Cancelled Carbon Dioxide BUN Creatinine Glucose Calcium AST ALT Alkaline Phosphatase Total Protein Albumin 02/17/24 02/17/24 02/17/24 Range/Units 18:01 18:01 18:01 Sodium Potassium Chloride 97 L Carbon Dioxide Cancelled 26 BUN Cancelled 54 H D Creatinine Cancelled Glucose Calcium AST ALT Alkaline Phosphatase Total Protein Albumin 02/17/24 02/17/24 02/17/24 Range/Units 18:01 18:01 18:01 Sodium Potassium Chloride Carbon Dioxide BUN Creatinine 1.40 H Glucose Cancelled 111 H Calcium Cancelled 12.6 H* AST Cancelled ALT Alkaline Phosphatase Total Protein Albumin 02/17/24 02/17/24 02/17/24 Range/Units 18:01 18:01 18:01 Sodium Potassium Chloride Carbon Dioxide BUN Creatinine Glucose Calcium AST 49 H ALT Cancelled 15 Alkaline Phosphatase Cancelled 154 H Total Protein Cancelled Albumin 02/17/24 02/17/24 02/17/24 Range/Units 18:01 18:01 23:21 Sodium 131 L Potassium 3.3 L Chloride 103 Carbon Dioxide 20 L BUN 44 H D Creatinine 1.20 H Glucose 97 Calcium 12.1 H* AST ALT Alkaline Phosphatase Total Protein 6.0 L Albumin Cancelled 3.3 L Calcium panel 02/17/24 02/17/24 02/17/24 Range/Units 18:01 18:01 18:01 Calcium Cancelled 12.6 H* Phosphorus 3.0 (2.5-4.5) mg/dL Albumin Cancelled 3.3 L 02/17/24 Range/Units 23:21 Calcium 12.1 H* Phosphorus (2.5-4.5) mg/dL Albumin Pituitary panel 02/17/24 02/17/24 02/17/24 Range/Units 18:01 18:01 18:01 Sodium Cancelled 129 L Potassium Cancelled 3.6 Chloride Cancelled Carbon Dioxide BUN Creatinine Glucose Calcium 02/17/24 02/17/24 02/17/24 Range/Units 18:01 18:01 18:01 Sodium Potassium Chloride 97 L Carbon Dioxide Cancelled 26 BUN Cancelled 54 H D Creatinine Cancelled Glucose Calcium 02/17/24 02/17/24 02/17/24 Range/Units 18:01 18:01 18:01 Sodium Potassium Chloride Carbon Dioxide BUN Creatinine 1.40 H Glucose Cancelled 111 H Calcium Cancelled 12.6 H* 02/17/24 Range/Units 23:21 Sodium 131 L Potassium 3.3 L Chloride 103 Carbon Dioxide 20 L BUN 44 H D Creatinine 1.20 H Glucose 97 Calcium 12.1 H* Adrenal panel 02/17/24 02/17/24 02/17/24 Range/Units 18:01 18:01 18:01 Sodium Cancelled 129 L Potassium Cancelled 3.6 Chloride Cancelled Carbon Dioxide BUN Creatinine Glucose Calcium Total Bilirubin AST ALT Alkaline Phosphatase Total Protein Albumin 02/17/24 02/17/24 02/17/24 Range/Units 18:01 18:01 18:01 Sodium Potassium Chloride 97 L Carbon Dioxide Cancelled 26 BUN Cancelled 54 H D Creatinine Cancelled Glucose Calcium Total Bilirubin AST ALT Alkaline Phosphatase Total Protein Albumin 02/17/24 02/17/24 02/17/24 Range/Units 18:01 18:01 18:01 Sodium Potassium Chloride Carbon Dioxide BUN Creatinine 1.40 H Glucose Cancelled 111 H Calcium Cancelled 12.6 H* Total Bilirubin Cancelled AST ALT Alkaline Phosphatase Total Protein Albumin 02/17/24 02/17/24 02/17/24 Range/Units 18:01 18:01 18:01 Sodium Potassium Chloride Carbon Dioxide BUN Creatinine Glucose Calcium Total Bilirubin 0.8 AST Cancelled 49 H ALT Cancelled 15 Alkaline Phosphatase Cancelled Total Protein Albumin 02/17/24 02/17/24 02/17/24 Range/Units 18:01 18:01 18:01 Sodium Potassium Chloride Carbon Dioxide BUN Creatinine Glucose Calcium Total Bilirubin AST ALT Alkaline Phosphatase 154 H Total Protein Cancelled 6.0 L Albumin Cancelled 3.3 L 02/17/24 Range/Units 23:21 Sodium 131 L Potassium 3.3 L Chloride 103 Carbon Dioxide 20 L BUN 44 H D Creatinine 1.20 H Glucose 97 Calcium 12.1 H* Total Bilirubin AST ALT Alkaline Phosphatase Total Protein Albumin All other labs normal. Imaging Abdomen CT scan report/results: report reviewed and image reviewed ( large right retroperitoneal abscess) CT scan - chest: report reviewed and image reviewed CT scan - pelvis: report reviewed and image reviewed ( abscess, no hernia seen where subcutaneous mass located. No mass seen either.) EKG: report reviewed
--- NOTE | 2024-02-18 15:10 | PC.NURSE ---
Patient returned to unit from CT
[2024-02-18 18:12] LABS: Basophils Absolute Auto 0.1 K/mm3 (0.0-0.1); Basophils Percent Auto 0.4 % (0.2-1.2); Eosinophils Percent Auto 0.1 % (0-4.4); Hematocrit 28.3 % (37.0-47.0); Hemoglobin 8.9 g/dL (12.0-15.0); Immature Granulocyte Absolute 0.29 K/mm3 (0.00-0.031); Immature Granulocyte Percent A 1.1 % (0-0.5); Lymphocytes Absolute Auto 1.26 K/mm3 (0.9-3.2); Lymphocytes Percent Auto 4.8 % (18.3-44.2); Mean Corpuscular HGB Conc 31.4 g/dl (32-36); Mean Corpuscular Hemoglobin 27.2 pg (26-34); Mean Corpuscular Volume 86.5 fl (80-100); Mean Platelet Volume 10.2 fl (7.4-10.4); Monocytes Absolute Auto 1.6 K/mm3 (0.1-0.6); Monocytes Percent Auto 6.2 % (2.6-8.5); Neutrophils Absolute Auto 23.2 K/mm3 (1.3-6.7); Neutrophils Percent Auto 87.4 % (45.5-73.1); Platelet Count Result 738 k/mm3 (150-375); Red Blood Count 3.27 M/mm3 (4.2-5.4); Red Cell Distribution Width 15.6 % (11.5-14.5); White Blood Count 26.5 K/mm3 (4.5-10.0)
[2024-02-18 18:27] LABS: Platelet Estimate Increased (Adequate)
[2024-02-18 18:28] LABS: Anisocytosis 1+; Burr Cells 1+; Hypochromasia 1+; Large Platelets Present; Ovalocytes 1+; Schistocytes None Seen
[2024-02-19] VITALS (12 sets, daily range): BP systolic 157–175; BP diastolic 41–52; PULSE 80–105; RESP 17–18; TEMP 35.6–36.4; O2SAT 99–100; BMI 18.9
[2024-02-19 05:40] LABS: Basophils Absolute Auto 0.1 K/mm3 (0.0-0.1); Basophils Percent Auto 0.6 % (0.2-1.2); Eosinophils Absolute Auto 0.2 K/mm3 (0-0.3); Eosinophils Percent Auto 0.8 % (0-4.4); Hematocrit 28.8 % (37.0-47.0); Hemoglobin 8.2 g/dL (12.0-15.0); Immature Granulocyte Absolute 0.27 K/mm3 (0.00-0.031); Immature Granulocyte Percent A 1.4 % (0-0.5); Lymphocytes Absolute Auto 1.47 K/mm3 (0.9-3.2); Lymphocytes Percent Auto 7.6 % (18.3-44.2); Mean Corpuscular HGB Conc 28.5 g/dl (32-36); Mean Corpuscular Hemoglobin 26.7 pg (26-34); Mean Corpuscular Volume 93.8 fl (80-100); Monocytes Absolute Auto 1.5 K/mm3 (0.1-0.6); Monocytes Percent Auto 7.6 % (2.6-8.5); Neutrophils Absolute Auto 15.8 K/mm3 (1.3-6.7); Platelet Count Result 848 k/mm3 (150-375); Red Blood Count 3.07 M/mm3 (4.2-5.4); Red Cell Distribution Width 15.5 % (11.5-14.5); White Blood Count 19.2 K/mm3 (4.5-10.0)
[2024-02-19 05:58] LABS: Alanine Aminotransferase 13 U/L (6-35); Albumin Level 2.6 g/dL (3.5-5.1); Alkaline Phosphatase 108 U/L (38-126); Anion Gap 9 mmol/L (4-12); Aspartate Amino Transferase 26 U/L (14-36); Bilirubin,Total 0.6 mg/dL (0.2-1.3); Blood Urea Nitrogen 34 mg/dL (7-17); Calcium 11.7 mg/dL (8.4-10.2); Carbon Dioxide 14 mmol/L (22-30); Chloride 110 mmol/L (98-107); Estimated CRCL calculation 29 ml/min; Estimated Glomerular Filt Rate 53; Glucose 103 mg/dL (65-110); Potassium 3.6 mmol/L (3.4-5.0); Sodium 133 mmol/L (137-145)
[2024-02-19 06:24] LABS: Crenated RBC 2+; Platelet Estimate Increased (Adequate); Schistocytes None Seen
[2024-02-19 06:25] LABS: Hypochromasia 1+
[2024-02-19] MEDS: hydrALAZINE HCL 50 MG TABLET 100 MG PO (08:43)
[2024-02-19] MEDS: VALSARTAN 80 MG TABLET PO (08:44)
[2024-02-19] MEDS: METOPROLOL SUCCINATE EXT REL 50 MG TABCR PO (08:44)
[2024-02-19] MEDS: metroNIDAZOLE 500 MG/ISO 100ML 500 MG/100 ML BAG 100 MG IVPB ×3 (08:44→23:53)
[2024-02-19] MEDS: allopurinoL 300 MG TABLET PO (08:44)
[2024-02-19] MEDS: hydroCHLOROthiazide 12.5 MG CAPSULE PO (08:44)
--- NOTE | 2024-02-19 09:43 | WPDUROPN2 ---
Progress Note: A&P Assessment and Plan (1) Psoas abscess: Code(s): K68.12 - Psoas muscle abscess Status: Acute Assessment and Plan: Noted to have markedly enlarged right psoas abscess of unclear origin. Underwent CT-guided percutaneous abscess drainage on 02/18/2024. Fluid was sent for culture which is pending at this time. Continue to monitor closely and trend WBC. She will need follow-up CT following appropriate antibiotic treatment. Also has a smaller left retroperitoneal abscess which will continue to be monitored. (2) UTI (urinary tract infection): Qualifiers: Hematuria presence: without hematuria Urinary tract infection type: acute cystitis Qualified Code(s): N30.00 - Acute cystitis without hematuria Code(s): N39.0 - Urinary tract infection, site not specified Status: Acute Assessment and Plan: Preliminary urine culture with growth of E coli. Continue empiric antibiotics while awaiting final culture and sensitivity results. Blood cultures pending. (3) Urine retention: Code(s): R33.9 - Retention of urine, unspecified Status: Acute Assessment and Plan: Noted to have history of urinary retention during previous hospital admission 02/2023. CT at that time showed a distended urinary bladder with tiny foci of gas which was felt to be due to acute UTI for which she was treated appropriately. She was voiding well during that time and had a PVR of 10 cc. Rodríguez catheter placed during this admission which will be continued at this time. No hydro or other findings of chronic retention on CT. Plan for Rodríguez removal prior to discharge and will need to monitor PVR to ensure she is emptying well. Subjective Subjective Date/Time Seen: 02/19/24 09:43 Interval history: Feeling fair today. Sitting up in the chair eating breakfast. She does exhibit confusion. She reports some mild right flank discomfort at the site of her drain. Drain has scant output of gamboa fluid. Rodríguez catheter in place draining clear yellow urine. Reports no issues with Rodríguez. Denies abdominal pain or suprapubic pain. Denies nausea, vomiting, fever, or chills. WBC has improved to 19.2. Review of Systems Review of Systems: All systems reviewed & are unremarkable except as noted in HPI and below Exam Narrative: General: Awake, alert, comfortable, no acute distress HEENT: Normocephalic, atraumatic, sclerae anicteric Respiratory: Normal respiratory effort, no accessory muscle use Abdomen: Nondistended, soft, nontender, mild right flank tenderness at site of drain, retroperitoneal drain with gamboa fluid output : Rodríguez catheter draining clear yellow urine Skin: Normal coloration, warm and dry Neurologic: No focal neuro deficits noted Psychiatric: Pleasantly confused Objective Data Vital Signs Vital Signs: Vital Signs - 24 hr 02/18/24 12:00 02/18/24 16:00 02/18/24 19:40 Temperature Pulse Rate 62 63 Respiratory Rate Blood Pressure Pulse Oximetry Oxygen Delivery Room Air Fraction of Inspired Oxygen 02/18/24 20:41 02/19/24 05:13 02/18/24 20:00 Temperature 96.5 F L 96.0 F L Pulse Rate 83 88 82 Respiratory Rate 18 18 Blood Pressure 165/46 H 157/45 H Pulse Oximetry 100 99 Oxygen Delivery Fraction of Inspired Oxygen 02/19/24 00:00 02/19/24 04:00 02/19/24 07:56 Temperature Pulse Rate 80 91 Respiratory Rate Blood Pressure Pulse Oximetry 99 Oxygen Delivery Room Air Fraction of Inspired Oxygen 21 02/19/24 08:37 02/19/24 08:44 02/19/24 08:42 Temperature Pulse Rate 88 88 Respiratory Rate Blood Pressure 175/43 H Pulse Oximetry 100 Oxygen Delivery Room Air Fraction of Inspired Oxygen Intake/Output Intake/Output: Intake & Output 02/16/24 02/17/24 02/18/24 02/19/24 23:59 23:59 23:59 23:59 Intake Total 2000 2638.4 100 Output Total 100 1250 800 Balance 1900 1388.4 -700 Meds/Results Medications: Active Medications Generic Name Dose Route Start Last Admin Trade Name Freq PRN Reason Stop Dose Admin Acetaminophen 650 mg 02/18/24 12:38 Acetaminophen 325 Mg Tablet PO Q4H PRN Mild Pain (1-3) or Fever Al Hydrox/Mg Hydrox/Simethicone 30 ml 02/18/24 12:38 Mag Hydrox/Al Hydrox/Simeth 30 Ml Udc PO QID PRN Dyspepsia Allopurinol 300 mg 02/19/24 09:00 02/19/24 08:44 Allopurinol 300 Mg Tablet PO 300 mg DAILY JENNA Administration Hydralazine HCl 100 mg 02/19/24 09:00 02/19/24 08:43 Hydralazine Hcl 50 Mg Tablet PO 100 mg DAILY JENNA Administration Hydrochlorothiazide 12.5 mg 02/19/24 09:00 02/19/24 08:44 Hydrochlorothiazide 12.5 Mg Capsule PO 12.5 mg QAM JENNA Administration Levofloxacin/Dextrose 750 mg in 150 mls @ 100 mls/hr 02/20/24 01:00 Levaquin 750 Mg/D5w 150 Ml IVPB Q48H JENNA Metronidazole 500 mg in 100 mls @ 100 mls/hr 02/18/24 08:00 02/19/24 08:44 Flagyl 500 Mg/Iso Soln 100 Ml IVPB 100 mls/hr Q8H JENNA Administration Potassium Chloride/Sodium Chloride 1,000 mls @ 100 mls/hr 02/18/24 08:20 02/18/24 23:45 Kcl 20 Meq/Ns IV CONT 100 mls/hr .Q10H JENNA Administration Magnesium Hydroxide 30 ml 02/18/24 12:38 Magnesium Hydroxide Susp 30 Ml Udc PO DAILY PRN Constipation Metoprolol Succinate 50 mg 02/19/24 09:00 02/19/24 08:44 Metoprolol Succinate Ext Rel 50 Mg Tabcr PO 50 mg DAILY JENNA Administration Valsartan 80 mg 02/19/24 09:00 02/19/24 08:44 Valsartan 80 Mg Tablet PO 80 mg QAM JENNA Administration Radiology Results: ITS Impressions Chest X-Ray 02/17/24 18:53 IMPRESSION: No acute cardiopulmonary process. Chest/Abdomen/Pelvis CT 02/17/24 21:32 IMPRESSION: Mild initial edema. Mild esophagitis/gastritis. Large right psoas abscess, measuring up to 19.7 cm, which may extend from the inferior pole the right kidney. A 3.4 cm left perirenal collection, a suspected abscess, is also present. Head CT 02/18/24 05:35 Impression: No significant abnormality seen. Catheter Placement CT 02/18/24 15:18 IMPRESSION: 1. Successful CT-guided right retroperitoneal abscess drainage. 2. 10 mL opaque, light green fluid was sent for aerobic and anaerobic cultures. Labs Labs: Laboratory Results - last 24 hr 02/18/24 02/18/24 02/19/24 13:22 17:33 05:26 WBC 26.5 H 19.2 H RBC 3.27 L 3.07 L Hgb 8.9 L 8.2 L Hct 28.3 L 28.8 L MCV 86.5 93.8 D MCH 27.2 26.7 MCHC 31.4 L 28.5 L RDW 15.6 H 15.5 H Plt Count 738 H 848 H MPV 10.2 10.0 Immature Gran % (Auto) 1.1 H 1.4 H Neut % (Auto) 87.4 H 82.0 H Lymph % (Auto) 4.8 L 7.6 L [place] % (Auto) 6.2 7.6 Eos % (Auto) 0.1 0.8 Baso % (Auto) 0.4 0.6 Lymph # (Auto) 1.26 1.47 [place] # (Auto) 1.6 H 1.5 H Eos # (Auto) 0.0 0.2 Baso # (Auto) 0.1 0.1 Abs Immat Gran (auto) 0.29 H 0.27 H Absolute Neuts (auto) 23.2 H 15.8 H Absolute Nucleated RBC 0.000 0.000 Nucleated RBC % 0.0 0.0 Platelet Estimate Increased Increased Large Platelets Present Hypochromasia 1+ 1+ Anisocytosis 1+ Ovalocytes 1+ [place] Cells 1+ Crenated Cell 2+ Schistocytes None seen None seen PT 23.4 H INR 1.9 APTT 21.7 L Sodium 133 L Potassium 3.6 Chloride 110 H Carbon Dioxide 14 L Anion Gap 9 BUN 34 H D Creatinine 1.00 Estim Creat Clear Calc 29 Estimated GFR 53 L Glucose 103 Calcium 11.7 H Total Bilirubin 0.6 AST 26 ALT 13 Alkaline Phosphatase 108 Total Protein 5.0 L Albumin 2.6 L
--- NOTE | 2024-02-19 12:22 | P.CDI_ITS ---
CDI Query Clarification Request BMI 19.8 Nutritional Diagnostic Statement: Severe Protein Calorie Malnutrition as related to inadequate protein energy intake as evidenced by minimal oral intake for > 1- 2 months and significant weight loss of 56% (140 ibs) in 1 year. Please refer to the comprehensive nutrition assessment for further information. If you agree with the diagnosis of protein calorie malnutrition, please add to the problem list specifying severity of malnutrition: * Mild * Moderate * Severe * Other/Unknown <RAMO Sebastian - Last Filed: 02/19/24 12:24> Clarified Diagnosis Clarified Diagnosis: * DX: Moderate protein calorie malnutrition Advised patient to have a frequent, high-calorie, intake of healthy food in diet on a daily basis to gain a few pounds Nutritional consult given to help with the above goal <Arsenio Doyle MD - Last Filed: 02/19/24 13:09>
[2024-02-19] MEDS: KCL 20MEQ/0.9% SOD CHL 1,000 ML 100 ML IV CONT ×2 (12:31→22:36)
--- NOTE | 2024-02-19 15:49 | P.PNGS_ITS ---
Progress Note: A&P Assessment and Plan (1) Psoas abscess: Code(s): K68.12 - Psoas muscle abscess Status: Acute Assessment and Plan: Large amount drained after percutaneous drain placed yesterday. The output was much thicker and purulent-appearing yesterday. Now it is more serous but still green colored. G stain shows many white blood cells and no organisms. Although patient very confused today, her white blood cell count is decreasing. (2) UTI (urinary tract infection): Qualifiers: Hematuria presence: without hematuria Urinary tract infection type: acute cystitis Qualified Code(s): N30.00 - Acute cystitis without hematuria Code(s): N39.0 - Urinary tract infection, site not specified Status: Acute Assessment and Plan: E coli similar to a year ago. On Levaquin. 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 Rodríguez catheter in place. Will discuss with Urology Rodríguez catheter management. 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 Still very elevated. Subjective Subjective Date/Time Seen: 02/19/24 15:49 Patient reports: feels better and afebrile Interval history: Patient very confused today. Had large amount of drainage from right psoas abscess after percutaneous drain placed yesterday. urine culture showing E coli. Review of Systems Review of Systems: ROS unobtainable: Yes unobtainable due to mental status Exam Const: General: comfortable, alert, awake and underweight Orientation/consciousness: confusion GI: Inspection: non-distended and other (R perc drain green fluid but more serous, not as thick) GI Palp: Yes Soft to palpation and No Tenderness to palpation present (GI) Urinary Catheter: Urinary Catheter: patent and draining Objective Data Vital Signs Vital Signs: Vital Signs - 24 hr 02/18/24 16:00 02/18/24 19:40 02/18/24 20:41 Temperature 35.8 C L Pulse Rate 63 83 Respiratory Rate 18 Blood Pressure 165/46 H Pulse Oximetry 100 Oxygen Delivery Room Air Fraction of Inspired Oxygen 02/19/24 05:13 02/18/24 20:00 02/19/24 00:00 Temperature 35.6 C L Pulse Rate 88 82 80 Respiratory Rate 18 Blood Pressure 157/45 H Pulse Oximetry 99 Oxygen Delivery Fraction of Inspired Oxygen 02/19/24 04:00 02/19/24 07:56 02/19/24 08:37 Temperature Pulse Rate 91 88 Respiratory Rate Blood Pressure 175/43 H Pulse Oximetry 99 100 Oxygen Delivery Room Air Fraction of Inspired Oxygen 21 02/19/24 08:44 02/19/24 08:42 02/19/24 08:00 Temperature Pulse Rate 88 83 Respiratory Rate Blood Pressure Pulse Oximetry Oxygen Delivery Room Air Fraction of Inspired Oxygen 02/19/24 12:00 02/19/24 08:40 02/19/24 14:00 Temperature 36.4 C Pulse Rate 105 H 84 Respiratory Rate 17 Blood Pressure 170/52 H Pulse Oximetry 100 Oxygen Delivery Room Air Fraction of Inspired Oxygen Intake/Output Intake/Output: Intake & Output 02/16/24 02/17/24 02/18/24 02/19/24 23:59 23:59 23:59 23:59 Intake Total 1999 2638.4 1220 Output Total 100 1250 800 Balance 1900 1388.4 420 Meds/Results Medications: Active Medications Generic Name Dose Route Start Last Admin Trade Name Freq PRN Reason Stop Dose Admin Acetaminophen 650 mg 02/18/24 12:38 Acetaminophen 325 Mg Tablet PO Q4H PRN Mild Pain (1-3) or Fever Al Hydrox/Mg Hydrox/Simethicone 30 ml 02/18/24 12:38 Mag Hydrox/Al Hydrox/Simeth 30 Ml Udc PO QID PRN Dyspepsia Allopurinol 300 mg 02/19/24 09:00 02/19/24 08:44 Allopurinol 300 Mg Tablet PO 300 mg DAILY JENNA Administration Hydralazine HCl 100 mg 02/19/24 09:00 02/19/24 08:43 Hydralazine Hcl 50 Mg Tablet PO 100 mg DAILY JENNA Administration Hydrochlorothiazide 12.5 mg 02/19/24 09:00 02/19/24 08:44 Hydrochlorothiazide 12.5 Mg Capsule PO 12.5 mg QAM JENNA Administration Levofloxacin/Dextrose 750 mg in 150 mls @ 100 mls/hr 02/20/24 01:00 Levaquin 750 Mg/D5w 150 Ml IVPB Q48H JENNA Metronidazole 500 mg in 100 mls @ 100 mls/hr 02/18/24 08:00 02/19/24 08:44 Flagyl 500 Mg/Iso Soln 100 Ml IVPB 100 mls/hr Q8H JENNA Administration Potassium Chloride/Sodium Chloride 1,000 mls @ 100 mls/hr 02/18/24 08:20 02/19/24 12:31 Kcl 20 Meq/Ns IV CONT 100 mls/hr .Q10H JENNA Administration Magnesium Hydroxide 30 ml 02/18/24 12:38 Magnesium Hydroxide Susp 30 Ml Udc PO DAILY PRN Constipation Metoprolol Succinate 50 mg 02/19/24 09:00 02/19/24 08:44 Metoprolol Succinate Ext Rel 50 Mg Tabcr PO 50 mg DAILY JENNA Administration Sodium Bicarbonate 650 mg 02/19/24 17:00 Sodium Bicarbonate Tab 650 Mg Tablet PO 02/22/24 09:01 BID JENNA Valsartan 80 mg 02/19/24 09:00 02/19/24 08:44 Valsartan 80 Mg Tablet PO 80 mg QAM JENNA Administration Radiology Results: ITS Impressions Chest X-Ray 02/17/24 18:53 IMPRESSION: No acute cardiopulmonary process. Chest/Abdomen/Pelvis CT 02/17/24 21:32 IMPRESSION: Mild initial edema. Mild esophagitis/gastritis. Large right psoas abscess, measuring up to 19.7 cm, which may extend from the inferior pole the right kidney. A 3.4 cm left perirenal collection, a suspected abscess, is also present. Head CT 02/18/24 05:35 Impression: No significant abnormality seen. Catheter Placement CT 02/18/24 15:18 IMPRESSION: 1. Successful CT-guided right retroperitoneal abscess drainage. 2. 10 mL opaque, light green fluid was sent for aerobic and anaerobic cultures. Labs Labs: Laboratory Results - last 24 hr 02/18/24 02/19/24 17:33 05:26 WBC 26.5 H 19.2 H RBC 3.27 L 3.07 L Hgb 8.9 L 8.2 L Hct 28.3 L 28.8 L MCV 86.5 93.8 D MCH 27.2 26.7 MCHC 31.4 L 28.5 L RDW 15.6 H 15.5 H Plt Count 738 H 848 H MPV 10.2 10.0 Immature Gran % (Auto) 1.1 H 1.4 H Neut % (Auto) 87.4 H 82.0 H Lymph % (Auto) 4.8 L 7.6 L [place] % (Auto) 6.2 7.6 Eos % (Auto) 0.1 0.8 Baso % (Auto) 0.4 0.6 Lymph # (Auto) 1.26 1.47 [place] # (Auto) 1.6 H 1.5 H Eos # (Auto) 0.0 0.2 Baso # (Auto) 0.1 0.1 Abs Immat Gran (auto) 0.29 H 0.27 H Absolute Neuts (auto) 23.2 H 15.8 H Absolute Nucleated RBC 0.000 0.000 Nucleated RBC % 0.0 0.0 Platelet Estimate Increased Increased Large Platelets Present Hypochromasia 1+ 1+ Anisocytosis 1+ Ovalocytes 1+ [place] Cells 1+ Crenated Cell 2+ Schistocytes None seen None seen Sodium 133 L Potassium 3.6 Chloride 110 H Carbon Dioxide 14 L Anion Gap 9 BUN 34 H D Creatinine 1.00 Estim Creat Clear Calc 29 Estimated GFR 53 L Glucose 103 Calcium 11.7 H Total Bilirubin 0.6 AST 26 ALT 13 Alkaline Phosphatase 108 Total Protein 5.0 L Albumin 2.6 L
--- NOTE | 2024-02-19 16:33 | P.PNIM_ITS ---
Progress Note: A&P Assessment and Plan (1) Psoas abscess: Code(s): K68.12 - Psoas muscle abscess Status: Acute (2) Hypercalcemia: Code(s): E83.52 - Hypercalcemia Status: Acute (3) UTI (urinary tract infection): Qualifiers: Hematuria presence: without hematuria Urinary tract infection type: acute cystitis Qualified Code(s): N30.00 - Acute cystitis without hematuria Code(s): N39.0 - Urinary tract infection, site not specified Status: Acute (4) DIAZ (acute kidney injury): Code(s): N17.9 - Acute kidney failure, unspecified Status: Acute (5) Urine retention: Code(s): R33.9 - Retention of urine, unspecified Status: Chronic (6) Paroxysmal A-fib: Code(s): I48.0 - Paroxysmal atrial fibrillation Status: Chronic (7) Osteoporosis: Code(s): M81.0 - Age-related osteoporosis without current pathological fracture Status: Acute (8) Gout: Code(s): M10.9 - Gout, unspecified Status: Acute (9) Hypertension: Code(s): I10 - Essential (primary) hypertension Status: Acute (10) FISHER (dyspnea on exertion): Code(s): R06.09 - Other forms of dyspnea Status: Acute (11) Pulmonary edema: Qualifiers: Chronicity: acute Qualified Code(s): J81.0 - Acute pulmonary edema Code(s): J81.1 - Chronic pulmonary edema Status: Acute (12) Acute UTI: Code(s): N39.0 - Urinary tract infection, site not specified Status: Acute Assessment and Plan: Admit patient to medical unit under full inpatient status Patient has right psoas abscess, UTI, dehydration, hyperkalemia and multiple electrolyte abnormalities Patient's finding point towards possible infectious versus neoplastic process Patient received 3 L of IV normal saline in the ER Continue with IV hydration with D5 normal saline with 20 mEq KCL at 100 cc/hour Strict input and output monitoring CT abdomen pelvis shows Large right psoas abscess, measuring up to 19.7 cm, whi ch may extend from the inferior pole the right kidney. A 3.4 cm left perirenal collection, a suspected abscess, is also present Patient underwent IR guided drain in psoas muscle which is draining abscess Follow-up on cultures drawn from psoas abscess Patient started on IV Levaquin and metronidazole in the ER which will continue on the floor Patient has mild hypokalemia which has been treated with IV fluids as right psoas abscess Patient admitted with altered mental status which is slowly improving with treatment of infection and DIAZ CT scan head done which ruled out any intracranial hemorrhage or infarction PT/OT evaluation ordered DC planning in the next few days once she remains stable and approaches her baseline ? Patient seen and examined at bedside during my morning rounds ? Collaborated with patient's nurse at the bedside in detail and addressed all concerns ? Labs, electrolytes, radiology, investigations and test results reviewed ? Consult/Nursing/Ancilliary notes on the chart reviewed and appreciated ? Spoke with patient/family at the bedside and answered all the questions that they had Repeat labs in a.m. Electrolyte replacement as per protocol. Patient will be monitored very closely on the floor. Further recommendations as per the hospital course. Time Spent With Patient Time with patient: 15 - 25 minutes Subjective Date/time seen: 02/19/24 16:33 Interval history: Patient sitting at bedside during my morning rounds. Still feels weak and tired. Spoke with daughter at bedside who is a little concerned as patient is saying things which sometimes are not making a whole lot of sense. His psoas abscess site is draining well. WBC count is improving. Review of Systems Review of Systems: She denies any chest pain, palpitations, shortness of breath, hematuria, diarrhea, headaches or vision changes. 14 systems were reviewed with pertinent positives and negatives per HPI. Except as documented in the HPI/progress notes, all other systems were reviewed and are negative. All systems reviewed & are unremarkable except as noted in HPI and below Exam Narrative: PHYSICAL EXAMINATION: Vital signs: Please see the chart General physical exam: Patient lying in bed, cooperative with exam, appears to be weak tired and fatigued Head/eyes: Atraumatic, EOMI, PERRLA ENT: +dry mucous membranes, nasal passages clear Neck: Supple, full range of motion, trachea midline CVS: S1 + S2, regular rate and rhythm, no murmurs Respiratory: Bilaterally fair air entry in both lung noriega, mild B/L crackles, symmetric chest expansion, no distress Abdomen: Soft, non-tender, bowel sounds +ve, no organomegaly Urology: + drain is place over right psoas muscle draining well, no suprapubic tenderness Extremities: No clubbing, no cyanosis, no edema, no calf tenderness Musculoskeletal: Moves all, adequate range of motion, no muscle spasms Skin: Warm, dry, no jaundice, no cyanosis Neurological: Awake, alert, oriented x 2, cranial nerves II-XII intact, no focal neurological deficits Psychiatric: Cooperative with normal mood and affect.? Judgment and insight intact. Non suicidal Objective Data Vital Signs Vital Signs: Vital Signs - 24 hr 02/18/24 19:40 02/18/24 20:41 02/19/24 05:13 Temperature 35.8 C L 35.6 C L Pulse Rate 83 88 Respiratory Rate 18 18 Blood Pressure 165/46 H 157/45 H Pulse Oximetry 100 99 Oxygen Delivery Room Air Fraction of Inspired Oxygen 02/18/24 20:00 02/19/24 00:00 02/19/24 04:00 Temperature Pulse Rate 82 80 91 Respiratory Rate Blood Pressure Pulse Oximetry Oxygen Delivery Fraction of Inspired Oxygen 02/19/24 07:56 02/19/24 08:37 02/19/24 08:44 Temperature Pulse Rate 88 88 Respiratory Rate Blood Pressure 175/43 H Pulse Oximetry 99 100 Oxygen Delivery Room Air Fraction of Inspired Oxygen 21 02/19/24 08:42 02/19/24 08:00 02/19/24 12:00 Temperature Pulse Rate 83 105 H Respiratory Rate Blood Pressure Pulse Oximetry Oxygen Delivery Room Air Fraction of Inspired Oxygen 02/19/24 08:40 02/19/24 14:00 02/19/24 16:00 Temperature 36.4 C Pulse Rate 84 91 Respiratory Rate 17 Blood Pressure 170/52 H Pulse Oximetry 100 Oxygen Delivery Room Air Fraction of Inspired Oxygen Intake/Output Intake/Output: Intake & Output 02/16/24 02/17/24 02/18/24 02/19/24 23:59 23:59 23:59 23:59 Intake Total 1999 2638.4 1220 Output Total 100 1250 800 Balance 1900 1388.4 420 Meds/Results Medications: Active Medications Generic Name Dose Route Start Last Admin Trade Name Freq PRN Reason Stop Dose Admin Acetaminophen 650 mg 02/18/24 12:38 Acetaminophen 325 Mg Tablet PO Q4H PRN Mild Pain (1-3) or Fever Al Hydrox/Mg Hydrox/Simethicone 30 ml 02/18/24 12:38 Mag Hydrox/Al Hydrox/Simeth 30 Ml Udc PO QID PRN Dyspepsia Allopurinol 300 mg 02/19/24 09:00 02/19/24 08:44 Allopurinol 300 Mg Tablet PO 300 mg DAILY JENNA Administration Hydralazine HCl 100 mg 02/19/24 09:00 02/19/24 08:43 Hydralazine Hcl 50 Mg Tablet PO 100 mg DAILY JENNA Administration Hydrochlorothiazide 12.5 mg 02/19/24 09:00 02/19/24 08:44 Hydrochlorothiazide 12.5 Mg Capsule PO 12.5 mg QAM JENNA Administration Levofloxacin/Dextrose 750 mg in 150 mls @ 100 mls/hr 02/20/24 01:00 Levaquin 750 Mg/D5w 150 Ml IVPB Q48H JENNA Metronidazole 500 mg in 100 mls @ 100 mls/hr 02/18/24 08:00 02/19/24 08:44 Flagyl 500 Mg/Iso Soln 100 Ml IVPB 100 mls/hr Q8H JENNA Administration Potassium Chloride/Sodium Chloride 1,000 mls @ 100 mls/hr 02/18/24 08:20 0 02/19/24 12:31 Kcl 20 Meq/Ns IV CONT 100 mls/hr .Q10H JENNA Administration Magnesium Hydroxide 30 ml 02/18/24 12:38 Magnesium Hydroxide Susp 30 Ml Udc PO DAILY PRN Constipation Metoprolol Succinate 50 mg 02/19/24 09:00 02/19/24 08:44 Metoprolol Succinate Ext Rel 50 Mg Tabcr PO 50 mg DAILY JENNA Administration Sodium Bicarbonate 650 mg 02/19/24 17:00 Sodium Bicarbonate Tab 650 Mg Tablet PO 02/22/24 09:01 BID JENNA Valsartan 80 mg 02/19/24 09:00 02/19/24 08:44 Valsartan 80 Mg Tablet PO 80 mg QAM JENNA Administration Radiology Results: ITS Impressions Chest X-Ray 02/17/24 18:53 IMPRESSION: No acute cardiopulmonary process. Chest/Abdomen/Pelvis CT 02/17/24 21:32 IMPRESSION: Mild initial edema. Mild esophagitis/gastritis. Large right psoas abscess, measuring up to 19.7 cm, which may extend from the inferior pole the right kidney. A 3.4 cm left perirenal collection, a suspected abscess, is also present. Head CT 02/18/24 05:35 Impression: No significant abnormality seen. Catheter Placement CT 02/18/24 15:18 IMPRESSION: 1. Successful CT-guided right retroperitoneal abscess drainage. 2. 10 mL opaque, light green fluid was sent for aerobic and anaerobic cultures. Labs Labs: Laboratory Results - last 24 hr 02/18/24 02/19/24 17:33 05:26 WBC 26.5 H 19.2 H RBC 3.27 L 3.07 L Hgb 8.9 L 8.2 L Hct 28.3 L 28.8 L MCV 86.5 93.8 D MCH 27.2 26.7 MCHC 31.4 L 28.5 L RDW 15.6 H 15.5 H Plt Count 738 H 848 H MPV 10.2 10.0 Immature Gran % (Auto) 1.1 H 1.4 H Neut % (Auto) 87.4 H 82.0 H Lymph % (Auto) 4.8 L 7.6 L [place] % (Auto) 6.2 7.6 Eos % (Auto) 0.1 0.8 Baso % (Auto) 0.4 0.6 Lymph # (Auto) 1.26 1.47 [place] # (Auto) 1.6 H 1.5 H Eos # (Auto) 0.0 0.2 Baso # (Auto) 0.1 0.1 Abs Immat Gran (auto) 0.29 H 0.27 H Absolute Neuts (auto) 23.2 H 15.8 H Absolute Nucleated RBC 0.000 0.000 Nucleated RBC % 0.0 0.0 Platelet Estimate Increased Increased Large Platelets Present Hypochromasia 1+ 1+ Anisocytosis 1+ Ovalocytes 1+ [place] Cells 1+ Crenated Cell 2+ Schistocytes None seen None seen Sodium 133 L Potassium 3.6 Chloride 110 H Carbon Dioxide 14 L Anion Gap 9 BUN 34 H D Creatinine 1.00 Estim Creat Clear Calc 29 Estimated GFR 53 L Glucose 103 Calcium 11.7 H Total Bilirubin 0.6 AST 26 ALT 13 Alkaline Phosphatase 108 Total Protein 5.0 L Albumin 2.6 L Quality VTE Prophylaxis VTE prophylaxis: mechanical ordered
[2024-02-19] MEDS: SODIUM BICARBONATE TAB 650 MG TABLET PO (16:57)
[2024-02-19] MEDS: MAGNESIUM HYDROXIDE SUSP 30 ML UDC PO (17:00)
[2024-02-20] VITALS (9 sets, daily range): BP systolic 152–164; BP diastolic 42–47; PULSE 57–92; RESP 14–18; TEMP 36.2–36.6; O2SAT 99–100
[2024-02-20] MEDS: levoFLOXacin 750 MG/D5W 150 ML 750 MG/150 ML BAG 100 MG IVPB (01:23)
[2024-02-20 05:24] LABS: Basophils Absolute Auto 0.1 K/mm3 (0.0-0.1); Basophils Percent Auto 0.7 % (0.2-1.2); Eosinophils Absolute Auto 0.2 K/mm3 (0-0.3); Eosinophils Percent Auto 1.6 % (0-4.4); Hemoglobin 8.3 g/dL (12.0-15.0); Immature Granulocyte Absolute 0.26 K/mm3 (0.00-0.031); Immature Granulocyte Percent A 1.8 % (0-0.5); Lymphocytes Absolute Auto 1.42 K/mm3 (0.9-3.2); Lymphocytes Percent Auto 9.7 % (18.3-44.2); Mean Corpuscular HGB Conc 31.9 g/dl (32-36); Mean Corpuscular Hemoglobin 27.4 pg (26-34); Mean Corpuscular Volume 85.8 fl (80-100); Mean Platelet Volume 10.2 fl (7.4-10.4); Monocytes Absolute Auto 1.1 K/mm3 (0.1-0.6); Monocytes Percent Auto 7.6 % (2.6-8.5); Neutrophils Absolute Auto 11.6 K/mm3 (1.3-6.7); Neutrophils Percent Auto 78.6 % (45.5-73.1); Platelet Count Result 666 k/mm3 (150-375); Red Blood Count 3.03 M/mm3 (4.2-5.4); Red Cell Distribution Width 15.8 % (11.5-14.5); White Blood Count 14.7 K/mm3 (4.5-10.0)
[2024-02-20 05:49] LABS: Anion Gap 4 mmol/L (4-12); Blood Urea Nitrogen 30 mg/dL (7-17); CRP 7.3 mg/dL (<1.0); Calcium 11.8 mg/dL (8.4-10.2); Carbon Dioxide 19 mmol/L (22-30); Chloride 115 mmol/L (98-107); Estimated CRCL calculation 27 ml/min; Estimated Glomerular Filt Rate 47; Glucose 117 mg/dL (65-110); Potassium 3.9 mmol/L (3.4-5.0); Sodium 138 mmol/L (137-145)
--- NOTE | 2024-02-20 09:06 | PCOTNOTE ---
The patient treatment was not able to be completed Patient was working with PT at the time. Will plan to continue treatment per plan of care.
--- NOTE | 2024-02-20 09:42 | WPDUROPN2 ---
Progress Note: A&P Assessment and Plan (1) Psoas abscess: Code(s): K68.12 - Psoas muscle abscess Status: Acute Assessment and Plan: Noted to have markedly enlarged right psoas abscess of unclear origin. Does not appear to be arising from kidney. Underwent CT-guided percutaneous abscess drainage on 02/18/2024. Fluid was sent for culture which is pending at this time. Continue to monitor closely and trend WBC, improved to 14.7 today. Continue empiric antibiotics. Monitor drain output. When output has decreased, plan for repeat imaging to reassess abscess and continue to monitor smaller left retroperitoneal abscess. (2) UTI (urinary tract infection): Qualifiers: Hematuria presence: without hematuria Urinary tract infection type: acute cystitis Qualified Code(s): N30.00 - Acute cystitis without hematuria Code(s): N39.0 - Urinary tract infection, site not specified Status: Acute Assessment and Plan: Urine culture with growth of E coli. Continue Levaquin based on sensitivities. 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 CT at that time showed a distended urinary bladder with tiny foci of gas which was felt to be due to acute UTI (E. coli) for which she was treated appropriately. She was voiding well during that time and had a PVR of 10 cc. Rodríguez catheter placed during this admission which will be continued at this time. No hydro or other findings of chronic retention on CT. Plan for Rodríguez removal pending clinical improvement when she is more ambulatory. Will need to monitor PVR to ensure she is emptying well. Subjective Subjective Date/Time Seen: 02/20/24 09:42 Interval history: Continues to be confused today. Not able to answer any questions reliably. She denies any significant pain and states she feels just fine. Only seems to be oriented to self. Minimal amount of light green tinged serous drainage from abscess drain. Rodríguez draining clear yellow urine. Review of Systems Review of Systems: All systems reviewed & are unremarkable except as noted in HPI and below Exam Narrative: General: Awake, alert, oriented to self only, comfortable, no acute distress HEENT: Normocephalic, atraumatic, sclerae anicteric Respiratory: Normal respiratory effort, no accessory muscle use Abdomen: Nondistended, soft, nontender, mild right flank tenderness at site of drain, retroperitoneal drain with light green tinged serous output : Rodríguez catheter draining clear yellow urine Skin: Normal coloration, warm and dry Neurologic: No focal neuro deficits noted Psychiatric: Confused Objective Data Vital Signs Vital Signs: Vital Signs - 24 hr 02/19/24 12:00 02/19/24 14:00 02/19/24 16:00 Temperature 97.6 F Pulse Rate 105 H 84 91 Respiratory Rate 17 Blood Pressure 170/52 H Pulse Oximetry 100 Oxygen Delivery 02/19/24 19:37 02/19/24 20:20 02/19/24 20:03 Temperature 97.4 F L Pulse Rate 90 90 Respiratory Rate 18 Blood Pressure 161/41 H Pulse Oximetry 100 Oxygen Delivery Room Air 02/20/24 00:01 02/20/24 04:03 02/20/24 06:00 Temperature 97.1 F L Pulse Rate 92 90 86 Respiratory Rate 18 Blood Pressure 152/47 H Pulse Oximetry 100 Oxygen Delivery 02/20/24 09:00 Temperature Pulse Rate Respiratory Rate Blood Pressure Pulse Oximetry Oxygen Delivery Room Air Intake/Output Intake/Output: Intake & Output 02/17/24 02/18/24 02/19/24 02/20/24 23:59 23:59 23:59 23:59 Intake Total 1999 2638.4 2420 550 Output Total 100 1250 1750 700 Balance 1900 1388.4 670 -150 Meds/Results Medications: Active Medications Generic Name Dose Route Start Last Admin Trade Name Freq PRN Reason Stop Dose Admin Acetaminophen 650 mg 02/18/24 12:38 Acetaminophen 325 Mg Tablet PO Q4H PRN Mild Pain (1-3) or Fever Al Hydrox/Mg Hydrox/Simethicone 30 ml 02/18/24 12:38 Mag Hydrox/Al Hydrox/Simeth 30 Ml Udc PO QID PRN Dyspepsia Allopurinol 300 mg 02/19/24 09:00 02/19/24 08:44 Allopurinol 300 Mg Tablet PO 300 mg DAILY JENNA Administration Hydralazine HCl 100 mg 02/19/24 09:00 02/19/24 08:43 Hydralazine Hcl 50 Mg Tablet PO 100 mg DAILY JENNA Administration Hydrochlorothiazide 12.5 mg 02/19/24 09:00 02/19/24 08:44 Hydrochlorothiazide 12.5 Mg Capsule PO 12.5 mg QAM JENNA Administration Levofloxacin/Dextrose 750 mg in 150 mls @ 100 mls/hr 02/20/24 01:00 02/20/24 02:53 Levaquin 750 Mg/D5w 150 Ml IVPB Infused Q48H JENNA Infusion Metronidazole 500 mg in 100 mls @ 100 mls/hr 02/18/24 08:00 02/20/24 00:53 Flagyl 500 Mg/Iso Soln 100 Ml IVPB Infused Q8H JENNA Infusion Potassium Chloride/Sodium Chloride 1,000 mls @ 100 mls/hr 02/18/24 08:20 02/20/24 07:27 Kcl 20 Meq/Ns IV CONT Not Given .Q10H JENNA Magnesium Hydroxide 30 ml 02/18/24 12:38 02/19/24 17:00 Magnesium Hydroxide Susp 30 Ml Udc PO 30 ml DAILY PRN Administration Constipation Metoprolol Succinate 50 mg 02/19/24 09:00 02/19/24 08:44 Metoprolol Succinate Ext Rel 50 Mg Tabcr PO 50 mg DAILY JENNA Administration Sodium Bicarbonate 650 mg 02/19/24 17:00 02/19/24 16:57 Sodium Bicarbonate Tab 650 Mg Tablet PO 02/22/24 09:01 650 mg BID JENNA Administration Valsartan 80 mg 02/19/24 09:00 02/19/24 08:44 Valsartan 80 Mg Tablet PO 80 mg QAM JENNA Administration Radiology Results: ITS Impressions Chest X-Ray 02/17/24 18:53 IMPRESSION: No acute cardiopulmonary process. Chest/Abdomen/Pelvis CT 02/17/24 21:32 IMPRESSION: Mild initial edema. Mild esophagitis/gastritis. Large right psoas abscess, measuring up to 19.7 cm, which may extend from the inferior pole the right kidney. A 3.4 cm left perirenal collection, a suspected abscess, is also present. Head CT 02/18/24 05:35 Impression: No significant abnormality seen. Catheter Placement CT 02/18/24 15:18 IMPRESSION: 1. Successful CT-guided right retroperitoneal abscess drainage. 2. 10 mL opaque, light green fluid was sent for aerobic and anaerobic cultures. Labs Labs: Laboratory Results - last 24 hr 02/20/24 04:55 WBC 14.7 H RBC 3.03 L Hgb 8.3 L Hct 26.0 L MCV 85.8 D MCH 27.4 MCHC 31.9 L RDW 15.8 H Plt Count 666 H MPV 10.2 Immature Gran % (Auto) 1.8 H Neut % (Auto) 78.6 H Lymph % (Auto) 9.7 L Stafford % (Auto) 7.6 Eos % (Auto) 1.6 Baso % (Auto) 0.7 Lymph # (Auto) 1.42 Stafford # (Auto) 1.1 H Eos # (Auto) 0.2 Baso # (Auto) 0.1 Abs Immat Gran (auto) 0.26 H Absolute Neuts (auto) 11.6 H Absolute Nucleated RBC 0.000 Nucleated RBC % 0.0 Sodium 138 Potassium 3.9 Chloride 115 H Carbon Dioxide 19 L Anion Gap 4 BUN 30 H Creatinine 1.10 H Estim Creat Clear Calc 27 Estimated GFR 47 L Glucose 117 H Calcium 11.8 H C-Reactive Protein 7.3 H
[2024-02-20] MEDS: metroNIDAZOLE 500 MG/ISO 100ML 500 MG/100 ML BAG 100 MG IVPB ×2 (10:35→15:16)
[2024-02-20] MEDS: KCL 20MEQ/0.9% SOD CHL 1,000 ML 100 ML IV CONT (10:40)
[2024-02-20 11:29] LABS: Ammonia < 9 umol/L (9-30)
--- NOTE | 2024-02-20 13:02 | WPDNEURCNPN ---
Assessment and Plan Assessment and plan (1) Sepsis with metabolic encephalopathy: Code(s): A41.9 - Sepsis, unspecified organism; R65.20 - Severe sepsis without septic shock; G93.41 - Metabolic encephalopathy Status: Acute (2) UTI (urinary tract infection): Qualifiers: Hematuria presence: without hematuria Urinary tract infection type: acute cystitis Qualified Code(s): N30.00 - Acute cystitis without hematuria Code(s): N39.0 - Urinary tract infection, site not specified Status: Acute (3) DIAZ (acute kidney injury): Code(s): N17.9 - Acute kidney failure, unspecified Status: Acute (4) Paroxysmal A-fib: Code(s): I48.0 - Paroxysmal atrial fibrillation Status: Chronic (5) Hypertension: Code(s): I10 - Essential (primary) hypertension Status: Acute (6) Psoas abscess: Code(s): K68.12 - Psoas muscle abscess Status: Acute Plan the patient has become nonverbal today which is obviously a concern. She is fairly independent before the current illness however she has lost about 40 lb in weight in the last several months. How she got the right iliopsoas abscess is also being looked into further by the urologist and according to their in consultation notes they did not seem to have any clear connection with the kidney at this time. Clinically I do not find any evidence for angitis or encephalitis which does remain in the differential diagnosis. She has not had any headache or vomiting. Her vital gone in fact is getting better but mental status does not seem to paralleling with this treatment for infection. Would suggest an EEG and if there is any further reason to investigate for underlying infection not otherwise explained we may consider a spinal tap. Consult date: 02/20/24 HPI: Gely Hi is a 83 year old female with history of right hilar swash abscess for which he is being treated PC has been drained since Friday. IC was more or less when independent until see decline and was admitted to the hospital. However she has lost about 40 lb in weight over the last few months. She lives with her daughter. Two of the daughters were present at the time of this evaluation. Patient not talking anymore today. A CT scan but most performed 2 days ago which did not show any abnormalities. Subsequently an MRI of the brain was performed today which also did not show any significant abnormality. Some chronic changes were observed. Patient has not had any stroke or any reaction similar to this in setting of any infection in the past. She has had some problem with the memory with the family thought was appropriate for her age and however the patient does have family history of dementia Alzheimer's type. No history of prior stroke or any major cardiac problems. Reviewing her record it was noted that she has had fairly high white cell count which in fact is coming down. Hemoglobin is still low. Creatinine slightly high previous he is on antibiotics treatment besides several other medications which was reviewed. She has not had any passing out spell or seizure-like activity reported. Review of Systems Review of Systems: ROS unobtainable: Yes unobtainable due to mental status PMFSH Past Medical History Medical History (Updated 02/20/24 @ 13:07 by Louann Almodovar MD) A-fib Encounter for removal of skin lesion Gout Hypertension Osteoporosis Paroxysmal A-fib Sepsis with metabolic encephalopathy Skin cancer Surgical History Surgical History H/O cataract extraction H/O lumpectomy H/O tubal ligation History of appendectomy History of removal of pigmented skin lesion Family History Family History Mother Alzheimer's dementia Hypothyroidism Father Cancer Diabetes mellitus Social History Social History Social History: she has 2 daughters and is . she lives with her daughter. 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 She does not use any drugs alcohol or marijuana. code status full code Smoking status: Former smoker Alcohol intake: current Drinks per week: 1 Substance use: unknown Do You Feel Safe in your Home?: Yes Lack of Transportation: No Lack of Food: Never True Current Housing: I Have Housing Concerned About Future Housing: No Difficulty Paying Gas/Electric Bills: No Difficulty Paying for Meds: No Currently Unemployed: No Education: Don't Know Difficulty w/ Childcare or Family Care: No Spiritual care concerns: No Meds Home Medications and Allergies Home Medications Medication Instructions Recorded Confirmed Type alendronate-vitamin D3 1,000 unit PO DAILY 02/27/23 02/18/24 History allopurinol 300 mg tablet 300 mg PO DAILY 02/27/23 02/18/24 History ascorbate calcium (vitamin C) 500 mg PO DAILY 02/27/23 02/18/24 History hydralazine 100 mg tablet 100 mg PO DAILY 02/27/23 02/18/24 History metoprolol succinate 100 mg 50 mg PO DAILY 02/27/23 02/18/24 History tablet,extended release 24 hr rivaroxaban 15 mg tablet (Xarelto) 15 mg PO DAILY 02/27/23 02/18/24 History valsartan 80 1 tablet PO DAILY 02/27/23 02/18/24 History mg-hydrochlorothiazide 12.5 mg tablet vitamin B complex 1 tablet PO DAILY 02/18/24 02/18/24 History Allergies Allergy/AdvReac Type Severity Reaction Status Date / Time atorvastatin Allergy Muscle Pain Verified 02/17/24 22:02 Cephalosporins Allergy Unknown Verified 02/17/24 16:05 clindamycin Allergy Unknown Verified 02/17/24 16:05 codeine Allergy Unknown Verified 02/17/24 16:05 meperidine Allergy Unknown Verified 02/17/24 16:05 morphine Allergy Unknown Verified 02/17/24 16:05 Penicillins Allergy Fainting Verified 02/17/24 22:01 propoxyphene Allergy Unknown Verified 02/17/24 16:05 rosuvastatin Allergy Unknown Verified 02/17/24 22:03 Sulfa (Sulfonamide Allergy Other Verified 02/17/24 22:05 Antibiotics) tramadol Allergy Unknown Verified 02/17/24 16:05 Vital Signs Vital Signs - 24 hr 02/19/24 14:00 02/19/24 16:00 02/19/24 19:37 Temperature 36.4 C 36.3 C L Pulse Rate 84 91 90 Respiratory Rate 17 18 Blood Pressure 170/52 H 161/41 H Pulse Oximetry 100 100 Oxygen Delivery 02/19/24 20:20 02/19/24 20:03 02/20/24 00:01 Temperature Pulse Rate 90 92 Respiratory Rate Blood Pressure Pulse Oximetry Oxygen Delivery Room Air 02/20/24 04:03 02/20/24 06:00 02/20/24 09:00 Temperature 36.2 C L Pulse Rate 90 86 Respiratory Rate 18 Blood Pressure 152/47 H Pulse Oximetry 100 Oxygen Delivery Room Air 02/20/24 08:00 Temperature Pulse Rate 84 Respiratory Rate Blood Pressure Pulse Oximetry Oxygen Delivery Exam Narrative: Alert but unable to talk or respond to the questions. She is essentially nonverbal at this time. She did not resist examination and does not appear to be agitated. No nuchal rigidity. No evidence of external trauma to the head. Pupils were midsize and react to light. Tongue does appear midline. No facial asymmetry. She has some swelling of the right arm from IV however she does not cooperate for manual motor testing on either side. The tone did not show any significant asymmetry on the left versus right side. No involuntary movements are seen. Plantars were downgoing. Results Labs 02/20/24 04:55 02/20/24 04:55 Labs: Short CBC 02/20/24 Range/Units 04:55 WBC 14.7 H (4.5-10.0) K/mm3 Hgb 8.3 L (12.0-15.0) g/dL Hct 26.0 L (37.0-47.0) % Plt Count 666 H (150-375) k/mm3 [facility] 02/20/24 04:55 Sodium 138 Potassium 3.9 Chloride 115 H Carbon Dioxide 19 L BUN 30 H Creatinine 1.10 H Glucose 117 H Calcium 11.8 H
--- NOTE | 2024-02-20 14:07 | PM.IMPN ---
Progress Note: A&P Assessment and Plan (1) Psoas abscess: Code(s): K68.12 - Psoas muscle abscess Status: Acute (2) Hypercalcemia: Code(s): E83.52 - Hypercalcemia Status: Acute (3) UTI (urinary tract infection): Qualifiers: Hematuria presence: without hematuria Urinary tract infection type: acute cystitis Qualified Code(s): N30.00 - Acute cystitis without hematuria Code(s): N39.0 - Urinary tract infection, site not specified Status: Acute (4) DIAZ (acute kidney injury): Code(s): N17.9 - Acute kidney failure, unspecified Status: Acute (5) Urine retention: Code(s): R33.9 - Retention of urine, unspecified Status: Chronic (6) Paroxysmal A-fib: Code(s): I48.0 - Paroxysmal atrial fibrillation Status: Chronic (7) Osteoporosis: Code(s): M81.0 - Age-related osteoporosis without current pathological fracture Status: Acute (8) Gout: Code(s): M10.9 - Gout, unspecified Status: Acute (9) Hypertension: Code(s): I10 - Essential (primary) hypertension Status: Acute (10) FISHER (dyspnea on exertion): Code(s): R06.09 - Other forms of dyspnea Status: Acute (11) Pulmonary edema: Qualifiers: Chronicity: acute Qualified Code(s): J81.0 - Acute pulmonary edema Code(s): J81.1 - Chronic pulmonary edema Status: Acute (12) Acute UTI: Code(s): N39.0 - Urinary tract infection, site not specified Status: Acute Assessment and Plan: Admit patient to medical unit under full inpatient status Patient had right psoas abscess, UTI, dehydration, hyperkalemia and multiple electrolyte abnormalities on admit pointing towards possible infectious versus neoplastic etiology Patient received 3 L of IV normal saline in the ER Continue with IV hydration with D5 normal saline with 20 mEq KCL at 100 cc/hour, now cut down to 75 cc per hour Renal functions are slowly improving Strict input and output monitoring CT abdomen pelvis shows Large right psoas abscess, measuring up to 19.7 cm, which may extend from the inferior pole the right kidney. A 3.4 cm left perirenal collection, a suspected abscess, is also present Patient underwent IR guided drain in psoas muscle which is draining abscess Follow-up on cultures drawn from psoas abscess Patient started on IV Levaquin and metronidazole in the ER which will continue on the floor Patient has mild hypokalemia which has been treated with IV fluids which has now resolved Patient admitted with fluctuating altered mental status likely due to underlying dementia and infection CT scan head done which ruled out any intracranial hemorrhage or infarction MRI brain and brain stem ordered today which showed Moderate nonspecific cerebral white matter disease, which likely represents chronic small vessel ischemic disease Neurology consult given for evaluation and further treatment recommendations PT/OT evaluation ordered DC planning in the next few days once she remains stable and approaches her baseline ? Patient seen and examined at bedside during my morning rounds ? Collaborated with patient's nurse at the bedside in detail and addressed all concerns ? Labs, electrolytes, radiology, investigations and test results reviewed ? Consult/Nursing/Ancilliary notes on the chart reviewed and appreciated ? Spoke with patient/family at the bedside and answered all the questions that they had Repeat labs in a.m. Electrolyte replacement as per protocol. Patient will be monitored very closely on the floor. Further recommendations as per the hospital course. Time Spent With Patient Time with patient: 15 - 25 minutes Subjective Date/time seen: 02/20/24 14:07 Interval history: Patient gets into areas of pleasant confusion review can only tell her name and continues to smile. Likely due to infection and dementia which is exacerbated due to hospital admission. Brain and brainstem MRI and Neurology consult ordered for for evaluation of her altered mental status. Tolerating antibiotics well. Labs improving. Review of Systems Review of Systems: Unable to be reliably obtained. Patient is pleasantly confused ROS unobtainable: Yes unobtainable due to mental status Exam Narrative: PHYSICAL EXAMINATION: Vital signs: Please see the chart General physical exam: Patient lying in bed, cooperative with exam, appears to be weak tired and fatigued Head/eyes: Atraumatic, EOMI, PERRLA ENT: +dry mucous membranes, nasal passages clear Neck: Supple, full range of motion, trachea midline CVS: S1 + S2, regular rate and rhythm, no murmurs Respiratory: Bilaterally fair air entry in both lung noriega, mild B/L crackles, symmetric chest expansion, no distress Abdomen: Soft, non-tender, bowel sounds +ve, no organomegaly Urology: + drain is place over right psoas muscle draining well, no suprapubic tenderness Extremities: No clubbing, no cyanosis, no edema, no calf tenderness Musculoskeletal: Moves all, adequate range of motion, no muscle spasms Skin: Warm, dry, no jaundice, no cyanosis Neurological: Awake, alert, oriented x 1-2, cranial nerves II-XII intact, no focal neurological deficits Psychiatric: Pleasantly confused, Non suicidal Objective Data Vital Signs Vital Signs: Vital Signs - 24 hr 02/19/24 16:00 02/19/24 19:37 02/19/24 20:20 Temperature 36.3 C L Pulse Rate 91 90 Respiratory Rate 18 Blood Pressure 161/41 H Pulse Oximetry 100 Oxygen Delivery Room Air 02/19/24 20:03 02/20/24 00:01 02/20/24 04:03 Temperature Pulse Rate 90 92 90 Respiratory Rate Blood Pressure Pulse Oximetry Oxygen Delivery 02/20/24 06:00 02/20/24 09:00 02/20/24 08:00 Temperature 36.2 C L Pulse Rate 86 84 Respiratory Rate 18 Blood Pressure 152/47 H Pulse Oximetry 100 Oxygen Delivery Room Air Intake/Output Intake/Output: Intake & Output 02/17/24 02/18/24 02/19/24 02/20/24 23:59 23:59 23:59 23:59 Intake Total 1999 2638.4 2420 1650 Output Total 100 1250 1750 700 Balance 1900 1388.4 670 950 Meds/Results Medications: Active Medications Generic Name Dose Route Start Last Admin Trade Name Freq PRN Reason Stop Dose Admin Acetaminophen 650 mg 02/18/24 12:38 Acetaminophen 325 Mg Tablet PO Q4H PRN Mild Pain (1-3) or Fever Al Hydrox/Mg Hydrox/Simethicone 30 ml 02/18/24 12:38 Mag Hydrox/Al Hydrox/Simeth 30 Ml Udc PO QID PRN Dyspepsia Allopurinol 300 mg 02/19/24 09:00 02/20/24 11:57 Allopurinol 300 Mg Tablet PO Not Given DAILY JENNA Hydralazine HCl 100 mg 02/19/24 09:00 02/20/24 11:57 Hydralazine Hcl 50 Mg Tablet PO Not Given DAILY JENNA Hydrochlorothiazide 12.5 mg 02/19/24 09:00 02/20/24 11:57 Hydrochlorothiazide 12.5 Mg Capsule PO Not Given QAM JENNA Levofloxacin/Dextrose 750 mg in 150 mls @ 100 mls/hr 02/20/24 01:00 02/20/24 02:53 Levaquin 750 Mg/D5w 150 Ml IVPB Infused Q48H JENNA Infusion Metronidazole 500 mg in 100 mls @ 100 mls/hr 02/18/24 08:00 02/20/24 11:35 Flagyl 500 Mg/Iso Soln 100 Ml IVPB Infused Q8H JENNA Infusion Potassium Chloride/Sodium Chloride 1,000 mls @ 100 mls/hr 02/18/24 08:20 02/20/24 10:40 Kcl 20 Meq/Ns IV CONT 100 mls/hr .Q10H JENNA Administration Magnesium Hydroxide 30 ml 02/18/24 12:38 02/19/24 17:00 Magnesium Hydroxide Susp 30 Ml Udc PO 30 ml DAILY PRN Administration Constipation Metoprolol Succinate 50 mg 02/19/24 09:00 02/20/24 11:57 Metoprolol Succinate Ext Rel 50 Mg Tabcr PO Not Given DAILY JENNA Sodium Bicarbonate 650 mg 02/19/24 17:00 02/20/24 11:58 Sodium Bicarbonate Tab 650 Mg Tablet PO 02/22/24 09:01 Not Given BID JENNA Valsartan 80 mg 02/19/24 09:00 02/20/24 11:58 Valsartan 80 Mg Tablet PO Not Given QAM [facility] Radiology Results: ITS Impressions Chest X-Ray 02/17/24 18:53 IMPRESSION: No acute cardiopulmonary process. Chest/Abdomen/Pelvis CT 02/17/24 21:32 IMPRESSION: Mild initial edema. Mild esophagitis/gastritis. Large right psoas abscess, measuring up to 19.7 cm, which may extend from the inferior pole the right kidney. A 3.4 cm left perirenal collection, a suspected abscess, is also present. Head CT 02/18/24 05:35 Impression: No significant abnormality seen. Catheter Placement CT 02/18/24 15:18 IMPRESSION: 1. Successful CT-guided right retroperitoneal abscess drainage. 2. 10 mL opaque, light green fluid was sent for aerobic and anaerobic cultures. Brain MRI 02/20/24 12:12 IMPRESSION: 1. Moderate nonspecific cerebral white matter disease, which likely represents chronic small vessel ischemic disease. Labs Labs: Laboratory Results - last 24 hr 02/20/24 02/20/24 04:55 11:12 WBC 14.7 H RBC 3.03 L Hgb 8.3 L Hct 26.0 L MCV 85.8 D MCH 27.4 MCHC 31.9 L RDW 15.8 H Plt Count 666 H MPV 10.2 Immature Gran % (Auto) 1.8 H Neut % (Auto) 78.6 H Lymph % (Auto) 9.7 L Roberts % (Auto) 7.6 Eos % (Auto) 1.6 Baso % (Auto) 0.7 Lymph # (Auto) 1.42 Roberts # (Auto) 1.1 H Eos # (Auto) 0.2 Baso # (Auto) 0.1 Abs Immat Gran (auto) 0.26 H Absolute Neuts (auto) 11.6 H Absolute Nucleated RBC 0.000 Nucleated RBC % 0.0 Sodium 138 Potassium 3.9 Chloride 115 H Carbon Dioxide 19 L Anion Gap 4 BUN 30 H Creatinine 1.10 H Estim Creat Clear Calc 27 Estimated GFR 47 L Glucose 117 H Calcium 11.8 H Ammonia < 9 L C-Reactive Protein 7.3 H Quality VTE Prophylaxis VTE prophylaxis: mechanical ordered
[2024-02-20] MEDS: MORPHINE SULFATE (*CRX) 2 MG/ML INJ IV PUSH (15:14)
--- NOTE | 2024-02-20 15:22 | PC.NURSE ---
Daughter, Kiana called and stated pt has only a mild allergy to morphine. She is now ok with the pt receiving the morphine. Given per NOV.
--- NOTE | 2024-02-20 15:47 | P.PNGS_ITS ---
Progress Note: A&P Assessment and Plan (1) Psoas abscess: Code(s): K68.12 - Psoas muscle abscess Status: Acute Assessment and Plan: continues to drain. White blood cell count improving. Mental status has wor sened. Neurology consultation appreciated. Cultures from abscess growing E coli although sensitivities are still pending. E coli also cultured from urine. Possibly repeat CT scan in 1-2 days. (2) UTI (urinary tract infection): Qualifiers: Hematuria presence: without hematuria Urinary tract infection type: acute cystitis Qualified Code(s): N30.00 - Acute cystitis without hematuria Code(s): N39.0 - Urinary tract infection, site not specified Status: Acute Assessment and Plan: E coli urinary tract infection. Sensitive to Levaquin. (3) Sepsis with metabolic encephalopathy: Code(s): A41.9 - Sepsis, unspecified organism; R65.20 - Severe sepsis without septic shock; G93.41 - Metabolic encephalopathy Status: Acute Assessment and Plan: Altered mental status last 2 days. She was very confused yesterday and today is almost nonverbal. 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 (6) Urine retention: Code(s): R33.9 - Retention of urine, unspecified Status: Chronic Assessment and Plan: Rodríguez catheter in place. Appreciate urology following. (7) Paroxysmal A-fib: Code(s): I48.0 - Paroxysmal atrial fibrillation Status: Chronic Assessment and Plan: In sinus rhythm this admission. Continue beta-blockers and antihypertensive meds Subjective Subjective Date/Time Seen: 02/20/24 15:47 Patient reports: afebrile Interval history: Mental status has worsened. Patient nonverbal today. Review of Systems Review of Systems: ROS unobtainable: Yes unobtainable due to mental status Exam Const: General: comfortable; No acute distress Nutritional Appearance: underweight Orientation/consciousness: confusion GI: Inspection: non-distended and incision ( Drain output more serous with green tint) GI Palp: Yes Soft to palpation, Yes Tenderness to palpation present (GI) ( mostly drain site no peritoneal signs), No Guarding due to pal pation present (GI) and No Rebound tenderness present Urinary Catheter: Urinary Catheter: patent and draining Neuro: Cranial nerves: Yes facial symmetry Cognition (Neuro): abnormal cognition Psych: Mental Status: other ( able to say her name and not much else) Affect: Blunted affect present Objective Data Vital Signs Vital Signs: Vital Signs - 24 hr 02/19/24 16:00 02/19/24 19:37 02/19/24 20:20 Temperature 36.3 C L Pulse Rate 91 90 Respiratory Rate 18 Blood Pressure 161/41 H Pulse Oximetry 100 Oxygen Delivery Room Air 02/19/24 20:03 02/20/24 00:01 02/20/24 04:03 Temperature Pulse Rate 90 92 90 Respiratory Rate Blood Pressure Pulse Oximetry Oxygen Delivery 02/20/24 06:00 02/20/24 09:00 02/20/24 08:00 Temperature 36.2 C L Pulse Rate 86 84 Respiratory Rate 18 Blood Pressure 152/47 H Pulse Oximetry 100 Oxygen Delivery Room Air 02/20/24 14:17 Temperature 36.4 C L Pulse Rate 74 Respiratory Rate 16 Blood Pressure 159/46 H Pulse Oximetry 100 Oxygen Delivery Intake/Output Intake/Output: Intake & Output 02/17/24 02/18/24 02/19/24 02/20/24 23:59 23:59 23:59 23:59 Intake Total 1999 2638.4 2420 2115 Output Total 100 1250 1750 700 Balance 1900 1388.4 670 1415 Meds/Results Medications: Active Medications Generic Name Dose Route Start Last Admin Trade Name Freq PRN Reason Stop Dose Admin Acetaminophen 650 mg 02/18/24 12:38 Acetaminophen 325 Mg Tablet PO Q4H PRN Mild Pain (1-3) or Fever Al Hydrox/Mg Hydrox/Simethicone 30 ml 02/18/24 12:38 Mag Hydrox/Al Hydrox/Simeth 30 Ml Udc PO QID PRN Dyspepsia Allopurinol 300 mg 02/19/24 09:00 02/20/24 11:57 Allopurinol 300 Mg Tablet PO Not Given DAILY JENNA Hydralazine HCl 100 mg 02/19/24 09:00 02/20/24 11:57 Hydralazine Hcl 50 Mg Tablet PO Not Given DAILY [facility] Hydrochlorothiazide 12.5 mg 02/19/24 09:00 02/20/24 11:57 Hydrochlorothiazide 12.5 Mg Capsule PO Not Given QAM JENNA Levofloxacin/Dextrose 750 mg in 150 mls @ 100 mls/hr 02/20/24 01:00 02/20/24 02:53 Levaquin 750 Mg/D5w 150 Ml IVPB Infused Q48H JENNA Infusion Metronidazole 500 mg in 100 mls @ 100 mls/hr 02/18/24 08:00 02/20/24 15:16 Flagyl 500 Mg/Iso Soln 100 Ml IVPB 100 mls/hr Q8H JENNA Administration Potassium Chloride/Sodium Chloride 1,000 mls @ 75 mls/hr 02/18/24 08:20 02/20/24 15:19 Kcl 20 Meq/Ns IV CONT 75 mls/hr .[id number] JENNA Infusion Magnesium Hydroxide 30 ml 02/18/24 12:38 02/19/24 17:00 Magnesium Hydroxide Susp 30 Ml Udc PO 30 ml DAILY PRN Administration Constipation Metoprolol Succinate 50 mg 02/19/24 09:00 02/20/24 11:57 Metoprolol Succinate Ext Rel 50 Mg Tabcr PO Not Given DAILY [facility] Sodium Bicarbonate 650 mg 02/19/24 17:00 02/20/24 11:58 Sodium Bicarbonate Tab 650 Mg Tablet PO 02/22/24 09:01 Not Given BID JENNA Valsartan 80 mg 02/19/24 09:00 02/20/24 11:58 Valsartan 80 Mg Tablet PO Not Given QAM [facility] Radiology Results: ITS Impressions Chest X-Ray 02/17/24 18:53 IMPRESSION: No acute cardiopulmonary process. Chest/Abdomen/Pelvis CT 02/17/24 21:32 IMPRESSION: Mild initial edema. Mild esophagitis/gastritis. Large right psoas abscess, measuring up to 19.7 cm, which may extend from the inferior pole the right kidney. A 3.4 cm left perirenal collection, a suspected abscess, is also present. Head CT 02/18/24 05:35 Impression: No significant abnormality seen. Catheter Placement CT 02/18/24 15:18 IMPRESSION: 1. Successful CT-guided right retroperitoneal abscess drainage. 2. 10 mL opaque, light green fluid was sent for aerobic and anaerobic cultures. Brain MRI 02/20/24 12:12 IMPRESSION: 1. Moderate nonspecific cerebral white matter disease, which likely represents chronic small vessel ischemic disease. Labs Labs: Laboratory Results - last 24 hr 02/20/24 02/20/24 04:55 11:12 WBC 14.7 H RBC 3.03 L Hgb 8.3 L Hct 26.0 L MCV 85.8 D MCH 27.4 MCHC 31.9 L RDW 15.8 H Plt Count 666 H MPV 10.2 Immature Gran % (Auto) 1.8 H Neut % (Auto) 78.6 H Lymph % (Auto) 9.7 L [place] % (Auto) 7.6 Eos % (Auto) 1.6 Baso % (Auto) 0.7 Lymph # (Auto) 1.42 [place] # (Auto) 1.1 H Eos # (Auto) 0.2 Baso # (Auto) 0.1 Abs Immat Gran (auto) 0.26 H Absolute Neuts (auto) 11.6 H Absolute Nucleated RBC 0.000 Nucleated RBC % 0.0 Sodium 138 Potassium 3.9 Chloride 115 H Carbon Dioxide 19 L Anion Gap 4 BUN 30 H Creatinine 1.10 H Estim Creat Clear Calc 27 Estimated GFR 47 L Glucose 117 H Calcium 11.8 H Ammonia < 9 L C-Reactive Protein 7.3 H
[2024-02-21] VITALS (8 sets, daily range): BP systolic 135–161; BP diastolic 32–41; PULSE 58–69; RESP 14–20; TEMP 36.6–36.7; O2SAT 97–98
[2024-02-21] MEDS: metroNIDAZOLE 500 MG/ISO 100ML 500 MG/100 ML BAG 100 MG IVPB ×3 (00:26→16:52)
[2024-02-21] MEDS: KCL 20MEQ/0.9% SOD CHL 1,000 ML 75 ML IV CONT ×2 (02:35→16:52)
[2024-02-21 05:28] LABS: Basophils Absolute Auto 0.1 K/mm3 (0.0-0.1); Basophils Percent Auto 0.6 % (0.2-1.2); Eosinophils Absolute Auto 0.4 K/mm3 (0-0.3); Eosinophils Percent Auto 2.3 % (0-4.4); Hematocrit 27.2 % (37.0-47.0); Hemoglobin 8.1 g/dL (12.0-15.0); Immature Granulocyte Absolute 0.28 K/mm3 (0.00-0.031); Immature Granulocyte Percent A 1.6 % (0-0.5); Lymphocytes Absolute Auto 1.41 K/mm3 (0.9-3.2); Mean Corpuscular HGB Conc 29.8 g/dl (32-36); Mean Corpuscular Hemoglobin 27.3 pg (26-34); Mean Corpuscular Volume 91.6 fl (80-100); Mean Platelet Volume 9.9 fl (7.4-10.4); Monocytes Percent Auto 5.6 % (2.6-8.5); Neutrophils Absolute Auto 14.4 K/mm3 (1.3-6.7); Neutrophils Percent Auto 81.9 % (45.5-73.1); Platelet Count Result 628 k/mm3 (150-375); Red Blood Count 2.97 M/mm3 (4.2-5.4); Red Cell Distribution Width 16.5 % (11.5-14.5); White Blood Count 17.6 K/mm3 (4.5-10.0)
[2024-02-21 06:56] LABS: Burr Cells 1+; Hypochromasia 1+; Platelet Estimate Increased (Adequate); Poikilocytosis 1+; Schistocytes 1+
[2024-02-21 07:39] LABS: Anion Gap 6 mmol/L (4-12); Blood Urea Nitrogen 22 mg/dL (7-17); CRP 3.9 mg/dL (<1.0); Calcium 11.6 mg/dL (8.4-10.2); Carbon Dioxide 16 mmol/L (22-30); Chloride 119 mmol/L (98-107); Estimated CRCL calculation 32 ml/min; Estimated Glomerular Filt Rate 60; Glucose 78 mg/dL (65-110); Potassium 4.9 mmol/L (3.4-5.0); Sodium 141 mmol/L (137-145)
[2024-02-21] MEDS: VALSARTAN 80 MG TABLET PO (08:08)
[2024-02-21] MEDS: SODIUM BICARBONATE TAB 650 MG TABLET PO ×2 (08:08→16:53)
[2024-02-21] MEDS: METOPROLOL SUCCINATE EXT REL 50 MG TABCR PO (08:08)
[2024-02-21] MEDS: hydroCHLOROthiazide 12.5 MG CAPSULE PO (08:09)
[2024-02-21] MEDS: allopurinoL 300 MG TABLET PO (08:09)
[2024-02-21] MEDS: hydrALAZINE HCL 50 MG TABLET 100 MG PO (08:09)
--- NOTE | 2024-02-21 12:00 | P.PNIM_ITS ---
Progress Note: A&P Assessment and Plan (1) Psoas abscess: Code(s): K68.12 - Psoas muscle abscess Status: Acute (2) Hypercalcemia: Code(s): E83.52 - Hypercalcemia Status: Acute (3) UTI (urinary tract infection): Qualifiers: Hematuria presence: without hematuria Urinary tract infection type: acute cystitis Qualified Code(s): N30.00 - Acute cystitis without hematuria Code(s): N39.0 - Urinary tract infection, site not specified Status: Acute (4) DIAZ (acute kidney injury): Code(s): N17.9 - Acute kidney failure, unspecified Status: Acute (5) Urine retention: Code(s): R33.9 - Retention of urine, unspecified Status: Chronic (6) Paroxysmal A-fib: Code(s): I48.0 - Paroxysmal atrial fibrillation Status: Chronic (7) Osteoporosis: Code(s): M81.0 - Age-related osteoporosis without current pathological fracture Status: Acute (8) Gout: Code(s): M10.9 - Gout, unspecified Status: Acute (9) Hypertension: Code(s): I10 - Essential (primary) hypertension Status: Acute (10) FISHER (dyspnea on exertion): Code(s): R06.09 - Other forms of dyspnea Status: Acute (11) Pulmonary edema: Qualifiers: Chronicity: acute Qualified Code(s): J81.0 - Acute pulmonary edema Code(s): J81.1 - Chronic pulmonary edema Status: Acute (12) Acute UTI: Code(s): N39.0 - Urinary tract infection, site not specified Status: Acute Plan Admit patient to medical unit under full inpatient status Patient had right psoas abscess, UTI, dehydration, hyperkalemia and multiple electrolyte abnormalities on admit pointing towards possible infectious versus neoplastic etiology Patient received 3 L of IV normal saline in the ER Continue with IV hydration with D5 normal saline with 20 mEq KCL at 100 cc/hour, now cut down to 75 cc per hour Renal functions are slowly improving Strict input and output monitoring CT abdomen pelvis shows Large right psoas abscess, measuring up to 19.7 cm, which may extend from the inferior pole the right kidney. A 3.4 cm left perirenal collection, a suspected abscess, is also present Patient underwent IR guided drain in psoas muscle which is draining abscess DC right psoas muscle drain as per General surgery/urology Follow-up on cultures drawn from psoas abscess shows E coli with good sensitivity to all antibiotics Patient started on IV Levaquin and metronidazole in the ER which will continue on the floor Her leukocytosis is slowly decreasing 27.3 > 26.5 > 19.2 > 14.7 > 17.6 Since bump in leukocytosis overnight from 14.7 -> 17.6, continue with the IV Levaquin and metronidazole Will deescalate antibiotics in a.m. based on sensitivities if the leukocytosis drop in am Discussed with ID pharmacist on Friday regarding DC antibiotics when patient is stable Patient has mild hypokalemia which has been treated with IV fluids which has now resolved Patient admitted with fluctuating altered mental status likely due to underlying dementia and infection CT scan head done which ruled out any intracranial hemorrhage or infarction MRI brain and brain stem ordered today which showed Moderate nonspecific cerebral white matter disease, which likely represents chronic small vessel ischemic disease Neurology consult given for evaluation and further treatment recommendations who are monitoring her closely and will consider EEG/lumbar puncture for further workup as warranted PT/OT evaluation ordered DC planning in the next few days once she remains stable and approaches her baseline ? Patient seen and examined at bedside during my morning rounds ? Collaborated with patient's nurse at the bedside in detail and addressed all concerns ? Labs, electrolytes, radiology, investigations and test results reviewed ? Consult/Nursing/Ancilliary notes on the chart reviewed and appreciated ? Spoke with patient/family at the bedside and answered all the questions that they had Repeat labs in a.m. Electrolyte replacement as per protocol. Patient will be monitored very closely on the floor. Further recommendations as per the hospital course. I am signing off. Patient's medical care will be taken over by my covering hospitalist provider in am. Time Spent With Patient Time with patient: 15 - 25 minutes Subjective Date/time seen: 02/21/24 12:00 Interval history: Patient lying in bed during my morning rounds. She was almost nonverbal yesterday but she is more interactive and pleasant today and carrying conversation with myself and staff. Right psoa muscle drainage is slowing down. Review of Systems Review of Systems: 14 systems were reviewed with pertinent positives and negatives per HPI. Except as documented in the HPI/progress notes, all other systems were reviewed and are negative. All systems reviewed & are unremarkable except as noted in HPI and below Exam Narrative: PHYSICAL EXAMINATION: Vital signs: Please see the chart General physical exam: Patient lying in bed, cooperative with exam, appears to be weak tired and fatigued Head/eyes: Atraumatic, EOMI, PERRLA ENT: +dry mucous membranes, nasal passages clear Neck: Supple, full range of motion, trachea midline CVS: S1 + S2, regular rate and rhythm, no murmurs Respiratory: Bilaterally fair air entry in both lung noriega, mild B/L crackles, symmetric chest expansion, no distress Abdomen: Soft, non-tender, bowel sounds +ve, no organomegaly Urology: + drain is place over right psoas muscle draining well, no suprapubic tenderness Extremities: No clubbing, no cyanosis, no edema, no calf tenderness Musculoskeletal: Moves all, adequate range of motion, no muscle spasms Skin: Warm, dry, no jaundice, no cyanosis Neurological: Awake, alert, oriented x 2-3, cranial nerves II-XII intact, no focal neurological deficits Psychiatric: Improving mood and affect, Non suicidal Objective Data Vital Signs Vital Signs: Vital Signs - 24 hr 02/20/24 14:17 02/20/24 16:00 02/20/24 20:10 Temperature 36.4 C L Pulse Rate 74 73 Respiratory Rate 16 Blood Pressure 159/46 H Pulse Oximetry 100 Oxygen Delivery Room Air 02/20/24 20:03 02/20/24 20:53 02/21/24 00:01 Temperature 36.6 C Pulse Rate 57 L 66 68 Respiratory Rate 14 Blood Pressure 164/42 H Pulse Oximetry 99 Oxygen Delivery 02/21/24 04:03 02/21/24 06:32 02/21/24 08:08 Temperature 36.6 C Pulse Rate 69 67 68 Respiratory Rate 14 Blood Pressure 161/41 H Pulse Oximetry 98 Oxygen Delivery 02/21/24 08:00 02/21/24 08:00 Temperature Pulse Rate 58 L Respiratory Rate Blood Pressure Pulse Oximetry Oxygen Delivery Room Air Intake/Output Intake/Output: Intake & Output 02/18/24 02/19/24 02/20/24 02/21/24 23:59 23:59 23:59 23:59 Intake Total 2638.4 2420 2215 1625 Output Total 1250 1750 1800 940 Balance 1388.4 670 415 685 Meds/Results Medications: Active Medications Generic Name Dose Route Start Last Admin Trade Name Freq PRN Reason Stop Dose Admin Acetaminophen 650 mg 02/18/24 12:38 Acetaminophen 325 Mg Tablet PO Q4H PRN Mild Pain (1-3) or Fever Al Hydrox/Mg Hydrox/Simethicone 30 ml 02/18/24 12:38 Mag Hydrox/Al Hydrox/Simeth 30 Ml Udc PO QID PRN Dyspepsia Allopurinol 300 mg 02/19/24 09:00 02/21/24 08:09 Allopurinol 300 Mg Tablet PO 300 mg DAILY JENNA Administration Hydralazine HCl 100 mg 02/19/24 09:00 02/21/24 08:09 Hydralazine Hcl 50 Mg Tablet PO 100 mg DAILY JENNA Administration Hydrochlorothiazide 12.5 mg 02/19/24 09:00 02/21/24 08:09 Hydrochlorothiazide 12.5 Mg Capsule PO 12.5 mg QAM JENNA Administration Levofloxacin/Dextrose 750 mg in 150 mls @ 100 mls/hr 02/20/24 01:00 02/20/24 02:53 Levaquin 750 Mg/D5w 150 Ml IVPB Infused Q48H JENNA Infusion Metronidazole 500 mg in 100 mls @ 100 mls/hr 02/18/24 08:00 02/21/24 09:07 Flagyl 500 Mg/Iso Soln 100 Ml IVPB Infused Q8H JENNA Infusion Potassium Chloride/Sodium Chloride 1,000 mls @ 75 mls/hr 02/18/24 08:20 02/21/24 02:35 Kcl 20 Meq/Ns IV CONT 75 mls/hr .[id number] JENNA Administration Magnesium Hydroxide 30 ml 02/18/24 12:38 02/19/24 17:00 Magnesium Hydroxide Susp 30 Ml Udc PO 30 ml DAILY PRN Administration Constipation Metoprolol Succinate 50 mg 02/19/24 09:00 02/21/24 08:08 Metoprolol Succinate Ext Rel 50 Mg Tabcr PO 50 mg DAILY JENNA Administration Sodium Bicarbonate 650 mg 02/19/24 17:00 02/21/24 08:08 Sodium Bicarbonate Tab 650 Mg Tablet PO 02/22/24 09:01 650 mg BID JENNA Administration Valsartan 80 mg 02/19/24 09:00 02/21/24 08:08 Valsartan 80 Mg Tablet PO 80 mg QAM JENNA Administration Radiology Results: ITS Impressions Chest X-Ray 02/17/24 18:53 IMPRESSION: No acute cardiopulmonary process. Chest/Abdomen/Pelvis CT 02/17/24 21:32 IMPRESSION: Mild initial edema. Mild esophagitis/gastritis. Large right psoas abscess, measuring up to 19.7 cm, which may extend from the inferior pole the right kidney. A 3.4 cm left perirenal collection, a suspected abscess, is also present. Head CT 02/18/24 05:35 Impression: No significant abnormality seen. Catheter Placement CT 02/18/24 15:18 IMPRESSION: 1. Successful CT-guided right retroperitoneal abscess drainage. 2. 10 mL opaque, light green fluid was sent for aerobic and anaerobic cultures. Brain MRI 02/20/24 12:12 IMPRESSION: 1. Moderate nonspecific cerebral white matter disease, which likely represents chronic small vessel ischemic disease. Labs Labs: Laboratory Results - last 24 hr 02/21/24 02/21/24 05:22 05:57 WBC 17.6 H RBC 2.97 L Hgb 8.1 L Hct 27.2 L MCV 91.6 D MCH 27.3 MCHC 29.8 L RDW 16.5 H Plt Count 628 H MPV 9.9 Immature Gran % (Auto) 1.6 H Neut % (Auto) 81.9 H Lymph % (Auto) 8.0 L [place] % (Auto) 5.6 Eos % (Auto) 2.3 Baso % (Auto) 0.6 Lymph # (Auto) 1.41 [place] # (Auto) 1.0 H Eos # (Auto) 0.4 H Baso # (Auto) 0.1 Abs Immat Gran (auto) 0.28 H Absolute Neuts (auto) 14.4 H Absolute Nucleated RBC 0.000 Nucleated RBC % 0.0 Platelet Estimate Increased Hypochromasia 1+ Poikilocytosis 1+ Dania Cells 1+ Schistocytes 1+ Sodium 141 Potassium 4.9 Chloride 119 H Carbon Dioxide 16 L Anion Gap 6 BUN 22 H Creatinine 0.90 Estim Creat Clear Calc 32 Estimated GFR 60 Glucose 78 Calcium 11.6 H C-Reactive Protein 3.9 H Quality VTE Prophylaxis VTE prophylaxis: mechanical ordered
--- NOTE | 2024-02-21 15:43 | WPDPN ---
Progress Note: A&P Assessment and Plan (1) Psoas abscess: Code(s): K68.12 - Psoas muscle abscess Status: Acute Assessment and Plan: Psoas abscess has been drained percutaneously. Will get repeat CT scan Friday to see if it is completely drained. Continue IV antibiotics. (2) Sepsis with metabolic encephalopathy: Code(s): A41.9 - Sepsis, unspecified organism; R65.20 - Severe sepsis without septic shock; G93.41 - Metabolic encephalopathy Status: Acute Plan Sepsis is resolving and white blood count is down to 17,000. Mental Status is improving with resolution of the sepsis. Continue supportive management. Continue IV antibiotics. Await culture results. Subjective Date/time seen: 02/21/24 15:43 Interval history: Patient without acute changes. She seems to be much more alert today. Answers questions easily. Denies any abdominal pain. Right lower quadrant abdominal drain output somewhat purulent but output volume is relatively low. No fever. Exam GI: Other: Abdomen is soft and nondistended. Drain site intact. No abdominal distention. Abdominal exam is benign. Objective Data Vital Signs Vital Signs: Vital Signs - 24 hr 02/20/24 16:00 02/20/24 20:10 02/20/24 20:03 Temperature Pulse Rate 73 57 L Respiratory Rate Blood Pressure Pulse Oximetry Oxygen Delivery Room Air 02/20/24 20:53 02/21/24 00:01 02/21/24 04:03 Temperature 36.6 C Pulse Rate 66 68 69 Respiratory Rate 14 Blood Pressure 164/42 H Pulse Oximetry 99 Oxygen Delivery 02/21/24 06:32 02/21/24 08:08 02/21/24 08:00 Temperature 36.6 C Pulse Rate 67 68 Respiratory Rate 14 Blood Pressure 161/41 H Pulse Oximetry 98 Oxygen Delivery Room Air 02/21/24 08:00 02/21/24 12:00 02/21/24 14:00 Temperature 36.6 C Pulse Rate 58 L 67 68 Respiratory Rate 18 Blood Pressure 135/35 L Pulse Oximetry 97 Oxygen Delivery Intake/Output Intake/Output: Intake & Output 02/18/24 02/19/24 02/20/24 02/21/24 23:59 23:59 23:59 23:59 Intake Total 2638.4 2420 2215 1625 Output Total 1250 1750 1800 940 Balance 1388.4 670 415 685 Meds/Results Medications: Active Medications Generic Name Dose Route Start Last Admin Trade Name Freq PRN Reason Stop Dose Admin Acetaminophen 650 mg 02/18/24 12:38 Acetaminophen 325 Mg Tablet PO Q4H PRN Mild Pain (1-3) or Fever Al Hydrox/Mg Hydrox/Simethicone 30 ml 02/18/24 12:38 Mag Hydrox/Al Hydrox/Simeth 30 Ml Udc PO QID PRN Dyspepsia Allopurinol 300 mg 02/19/24 09:00 02/21/24 08:09 Allopurinol 300 Mg Tablet PO 300 mg DAILY JENNA Administration Hydralazine HCl 100 mg 02/19/24 09:00 02/21/24 08:09 Hydralazine Hcl 50 Mg Tablet PO 100 mg DAILY JENNA Administration Hydrochlorothiazide 12.5 mg 02/19/24 09:00 02/21/24 08:09 Hydrochlorothiazide 12.5 Mg Capsule PO 12.5 mg QAM JENNA Administration Levofloxacin/Dextrose 750 mg in 150 mls @ 100 mls/hr 02/20/24 01:00 02/20/24 02:53 Levaquin 750 Mg/D5w 150 Ml IVPB Infused Q48H JENNA Infusion Metronidazole 500 mg in 100 mls @ 100 mls/hr 02/18/24 08:00 02/21/24 09:07 Flagyl 500 Mg/Iso Soln 100 Ml IVPB Infused Q8H JENNA Infusion Potassium Chloride/Sodium Chloride 1,000 mls @ 75 mls/hr 02/18/24 08:20 02/21/24 02:35 Kcl 20 Meq/Ns IV CONT 75 mls/hr .[id number] JENNA Administration Magnesium Hydroxide 30 ml 02/18/24 12:38 02/19/24 17:00 Magnesium Hydroxide Susp 30 Ml Udc PO 30 ml DAILY PRN Administration Constipation Metoprolol Succinate 50 mg 02/19/24 09:00 02/21/24 08:08 Metoprolol Succinate Ext Rel 50 Mg Tabcr PO 50 mg DAILY JENNA Administration Sodium Bicarbonate 650 mg 02/19/24 17:00 02/21/24 08:08 Sodium Bicarbonate Tab 650 Mg Tablet PO 02/22/24 09:01 650 mg BID JENNA Administration Valsartan 80 mg 02/19/24 09:00 02/21/24 08:08 Valsartan 80 Mg Tablet PO 80 mg QAM JENNA Administration Radiology Results: ITS Impressions Chest X-Ray 02/17/24 18:53 IMPRESSION: No acute cardiopulmonary process. Chest/Abdomen/Pelvis CT 02/17/24 21:32 IMPRESSION: Mild initial edema. Mild esophagitis/gastritis. Large right psoas abscess, measuring up to 19.7 cm, which may extend from the inferior pole the right kidney. A 3.4 cm left perirenal collection, a suspected abscess, is also present. Head CT 02/18/24 05:35 Impression: No significant abnormality seen. Catheter Placement CT 02/18/24 15:18 IMPRESSION: 1. Successful CT-guided right retroperitoneal abscess drainage. 2. 10 mL opaque, light green fluid was sent for aerobic and anaerobic cultures. Brain MRI 02/20/24 12:12 IMPRESSION: 1. Moderate nonspecific cerebral white matter disease, which likely represents chronic small vessel ischemic disease. Labs Labs: Laboratory Results - last 24 hr 02/21/24 02/21/24 05:22 05:57 WBC 17.6 H RBC 2.97 L Hgb 8.1 L Hct 27.2 L MCV 91.6 D MCH 27.3 MCHC 29.8 L RDW 16.5 H Plt Count 628 H MPV 9.9 Immature Gran % (Auto) 1.6 H Neut % (Auto) 81.9 H Lymph % (Auto) 8.0 L [place] % (Auto) 5.6 Eos % (Auto) 2.3 Baso % (Auto) 0.6 Lymph # (Auto) 1.41 [place] # (Auto) 1.0 H Eos # (Auto) 0.4 H Baso # (Auto) 0.1 Abs Immat Gran (auto) 0.28 H Absolute Neuts (auto) 14.4 H Absolute Nucleated RBC 0.000 Nucleated RBC % 0.0 Platelet Estimate Increased Hypochromasia 1+ Poikilocytosis 1+ Dania Cells 1+ Schistocytes 1+ Sodium 141 Potassium 4.9 Chloride 119 H Carbon Dioxide 16 L Anion Gap 6 BUN 22 H Creatinine 0.90 Estim Creat Clear Calc 32 Estimated GFR 60 Glucose 78 Calcium 11.6 H C-Reactive Protein 3.9 H
[2024-02-22] MEDS: metroNIDAZOLE 500 MG/ISO 100ML 500 MG/100 ML BAG 100 MG IVPB ×2 (00:08→08:45)
[2024-02-22] MEDS: levoFLOXacin 750 MG/D5W 150 ML 750 MG/150 ML BAG 100 MG IVPB (01:08)
[2024-02-22 03:29] VITALS: BP 167/31; PULSE 55; RESP 16; TEMP 36.5; O2SAT 98
--- NOTE | 2024-02-22 03:38 | PC.NURSE ---
I went to check patient's perc drain output at this time and the fluid was draining onto patient bed due to opening not being screwed on properly by whoever emptied drain last. No output charted at this time.
[2024-02-22 05:23] LABS: Basophils Absolute Auto 0.1 K/mm3 (0.0-0.1); Basophils Percent Auto 0.7 % (0.2-1.2); Eosinophils Absolute Auto 0.5 K/mm3 (0-0.3); Eosinophils Percent Auto 3.1 % (0-4.4); Immature Granulocyte Absolute 0.32 K/mm3 (0.00-0.031); Immature Granulocyte Percent A 2.1 % (0-0.5); Lymphocytes Absolute Auto 1.41 K/mm3 (0.9-3.2); Lymphocytes Percent Auto 9.4 % (18.3-44.2); Mean Corpuscular HGB Conc 29.6 g/dl (32-36); Mean Corpuscular Hemoglobin 27.5 pg (26-34); Mean Corpuscular Volume 92.8 fl (80-100); Mean Platelet Volume 10.1 fl (7.4-10.4); Monocytes Percent Auto 6.4 % (2.6-8.5); Neutrophils Absolute Auto 11.8 K/mm3 (1.3-6.7); Neutrophils Percent Auto 78.3 % (45.5-73.1); Platelet Count Result 500 k/mm3 (150-375); Red Blood Count 2.91 M/mm3 (4.2-5.4); Red Cell Distribution Width 16.9 % (11.5-14.5); White Blood Count 15.1 K/mm3 (4.5-10.0)
[2024-02-22 05:38] LABS: Albumin Level 2.4 g/dL (3.5-5.1); Anion Gap 5 mmol/L (4-12); Blood Urea Nitrogen 21 mg/dL (7-17); CRP 2.5 mg/dL (<1.0); Carbon Dioxide 17 mmol/L (22-30); Chloride 115 mmol/L (98-107); Estimated CRCL calculation 36 ml/min; Estimated Glomerular Filt Rate > 60; Glucose 92 mg/dL (65-110); Potassium 4.1 mmol/L (3.4-5.0); Sodium 137 mmol/L (137-145)
[2024-02-22 08:09] VITALS: BP 158/42; PULSE 56; RESP 16; TEMP 36.6; O2SAT 99
[2024-02-22 08:45] VITALS: PULSE 58
[2024-02-22] MEDS: allopurinoL 300 MG TABLET PO (08:45)
[2024-02-22] MEDS: METOPROLOL SUCCINATE EXT REL 50 MG TABCR PO (08:45)
[2024-02-22] MEDS: VALSARTAN 80 MG TABLET PO (08:45)
[2024-02-22] MEDS: SODIUM BICARBONATE TAB 650 MG TABLET PO (08:45)
--- NOTE | 2024-02-22 10:03 | P.PNIM_ITS ---
Progress Note: A&P Assessment and Plan (1) Psoas abscess: Code(s): K68.12 - Psoas muscle abscess Status: Acute Assessment and Plan: Large right psoas abscess s/p percutaneous drainage on 02/18/2024 Abscess cultures with growth of E coli, also growing E coli in urine Continue Levaquin. Will discontinue Flagyl at this time WBC continues to improve, 15.1 today. Platelet count also continues to improve. CRP trending down Preliminary blood cultures negative today Plan for repeat CT tomorrow to reassess abscess (2) UTI (urinary tract infection): Qualifiers: Hematuria presence: without hematuria Urinary tract infection type: acute cystitis Qualified Code(s): N30.00 - Acute cystitis without hematuria Code(s): N39.0 - Urinary tract infection, site not specified Status: Acute Assessment and Plan: Urine culture with growth of E coli Continue Levaquin based on sensitivities Continue Rodríguez catheter at this time (3) DIAZ (acute kidney injury): Code(s): N17.9 - Acute kidney failure, unspecified Status: Acute Assessment and Plan: Creatinine on presentation elevated at 1.4. Baseline appears to be around 1.0 Creatinine has improved to 0.8 today IV fluids have been discontinued (4) Confusion: Code(s): R41.0 - Disorientation, unspecified Status: Acute Assessment and Plan: Patient remains confused, only reliably oriented to self Head CT on admission was unremarkable Brain MRI with moderate nonspecific white matter disease; no acute findings Likely has underlying dementia; possibly worsened due to acute infection Appreciate Neurology consultation Ammonia level low. Will check TSH, B12, folate (5) Hypercalcemia: Code(s): E83.52 - Hypercalcemia Status: Acute Assessment and Plan: Calcium markedly elevated on presentation, 12.6 Improved to 11.0 today Continue to monitor (6) Paroxysmal A-fib: Code(s): I48.0 - Paroxysmal atrial fibrillation Status: Chronic Assessment and Plan: Rate is controlled on home metoprolol (7) Hypertension: Code(s): I10 - Essential (primary) hypertension Status: Acute Assessment and Plan: Blood pressures reviewed and are remaining stable Continue home antihypertensives Subjective Date/time seen: 02/22/24 10:03 Interval history: Assuming care for Gely today. She is confused, only reliably oriented to self. She complains of right flank pain. She denies nausea, vomiting, fever, chills. Denies shortness of breath or chest pain. Her appetite is poor. Denies dizziness or lightheadedness. Review of Systems Review of Systems: All systems reviewed & are unremarkable except as noted in HPI and below Exam Narrative: General: well-nourished, well appearing 83-year-old female, sitting up in bed, comfortable, NARD Neuro: awake, alert and oriented x2, speech clear, no focal neuro deficits noted, confused and unable to answer all questions appropriately HEENMT: normocephalic, atraumatic, EOMI, sclerae anicteric Respiratory: clear to auscultation bilaterally, nonlabored breathing Cardio: regular rate, regular rhythm with S1-S2 Abdomen: nondistended, normoactive bowel sounds, soft, nontender to palpation, mild right flank tenderness at site of drain with output of light pink serous fluid : Rodríguez catheter draining clear yellow urine Extremities: no edema, erythema, or tenderness to palpation, DP pulses 2+ bilaterally Skin: no rashes or lesions, warm and dry Psych: Confused, judgment and insight poor Objective Data Vital Signs Vital Signs: Vital Signs - 24 hr 02/21/24 12:00 02/21/24 14:00 02/21/24 19:46 Temperature 97.8 F 98.0 F Pulse Rate 67 68 61 Respiratory Rate 18 20 Blood Pressure 135/35 L 156/32 H Pulse Oximetry 97 98 Oxygen Delivery 02/21/24 20:45 02/22/24 03:29 02/22/24 08:09 Temperature 97.7 F 97.8 F Pulse Rate 55 L 56 L Respiratory Rate 16 16 Blood Pressure 167/31 H 158/42 H Pulse Oximetry 98 99 Oxygen Delivery Room Air 02/22/24 08:45 Temperature Pulse Rate 58 L Respiratory Rate Blood Pressure Pulse Oximetry Oxygen Delivery Intake/Output Intake/Output: Intake & Output 02/19/24 02/20/24 02/21/24 02/22/24 23:59 23:59 23:59 23:59 Intake Total 2420 2215 2985 670 Output Total 1750 1800 1740 800 Balance 140 454 8640 -130 Meds/Results Medications: Active Medications Generic Name Dose Route Start Last Admin Trade Name Freq PRN Reason Stop Dose Admin Acetaminophen 650 mg 02/18/24 12:38 Acetaminophen 325 Mg Tablet PO Q4H PRN Mild Pain (1-3) or Fever Al Hydrox/Mg Hydrox/Simethicone 30 ml 02/18/24 12:38 Mag Hydrox/Al Hydrox/Simeth 30 Ml Udc PO QID PRN Dyspepsia Allopurinol 300 mg 02/19/24 09:00 02/22/24 08:45 Allopurinol 300 Mg Tablet PO 300 mg DAILY JENNA Administration Hydralazine HCl 100 mg 02/19/24 09:00 02/22/24 08:41 Hydralazine Hcl 50 Mg Tablet PO Not Given DAILY JENNA Hydrochlorothiazide 12.5 mg 02/19/24 09:00 02/22/24 08:41 Hydrochlorothiazide 12.5 Mg Capsule PO Not Given QAM JENNA Levofloxacin/Dextrose 750 mg in 150 mls @ 100 mls/hr 02/20/24 01:00 02/22/24 02:38 Levaquin 750 Mg/D5w 150 Ml IVPB Infused Q48H JENNA Infusion Metronidazole 500 mg in 100 mls @ 100 mls/hr 02/18/24 08:00 02/22/24 08:45 Flagyl 500 Mg/Iso Soln 100 Ml IVPB 100 mls/hr Q8H JENNA Administration Magnesium Hydroxide 30 ml 02/18/24 12:38 02/19/24 17:00 Magnesium Hydroxide Susp 30 Ml Udc PO 30 ml DAILY PRN Administration Constipation Metoprolol Succinate 50 mg 02/19/24 09:00 02/22/24 08:45 Metoprolol Succinate Ext Rel 50 Mg Tabcr PO 50 mg DAILY JENNA Administration Valsartan 80 mg 02/19/24 09:00 02/22/24 08:45 Valsartan 80 Mg Tablet PO 80 mg QAM JENNA Administration Radiology Results: ITS Impressions Chest X-Ray 02/17/24 18:53 IMPRESSION: No acute cardiopulmonary process. Chest/Abdomen/Pelvis CT 02/17/24 21:32 IMPRESSION: Mild initial edema. Mild esophagitis/gastritis. Large right psoas abscess, measuring up to 19.7 cm, which may extend from the inferior pole the right kidney. A 3.4 cm left perirenal collection, a suspected abscess, is also present. Head CT 02/18/24 05:35 Impression: No significant abnormality seen. Catheter Placement CT 02/18/24 15:18 IMPRESSION: 1. Successful CT-guided right retroperitoneal abscess drainage. 2. 10 mL opaque, light green fluid was sent for aerobic and anaerobic cultures. Brain MRI 02/20/24 12:12 IMPRESSION: 1. Moderate nonspecific cerebral white matter disease, which likely represents chronic small vessel ischemic disease. Labs Labs: Laboratory Results - last 24 hr 02/22/24 04:50 WBC 15.1 H RBC 2.91 L Hgb 8.0 L Hct 27.0 L MCV 92.8 MCH 27.5 MCHC 29.6 L RDW 16.9 H Plt Count 500 H MPV 10.1 Immature Gran % (Auto) 2.1 H Neut % (Auto) 78.3 H Lymph % (Auto) 9.4 L [place] % (Auto) 6.4 Eos % (Auto) 3.1 Baso % (Auto) 0.7 Lymph # (Auto) 1.41 [place] # (Auto) 1.0 H Eos # (Auto) 0.5 H Baso # (Auto) 0.1 Abs Immat Gran (auto) 0.32 H Absolute Neuts (auto) 11.8 H Absolute Nucleated RBC 0.000 Nucleated RBC % 0.0 Sodium 137 Potassium 4.1 Chloride 115 H Carbon Dioxide 17 L Anion Gap 5 BUN 21 H Creatinine 0.80 Estim Creat Clear Calc 36 Estimated GFR > 60 Glucose 92 Calcium 11.0 H C-Reactive Protein 2.5 H Albumin 2.4 L Quality VTE Prophylaxis VTE prophylaxis: mechanical ordered
--- NOTE | 2024-02-22 11:54 | WPDPN ---
Progress Note: A&P Assessment and Plan (1) Psoas abscess: Code(s): K68.12 - Psoas muscle abscess Status: Acute Assessment and Plan: Abscesses drained and sepsis is resolving. Continue on IV antibiotics. Repeat CT scan tomorrow to see if the abscess is completely collapsed and to see if the drain can be removed. Continue present supportive management. Discussed with the patient daughter at the bedside that she can bring anything from outside the hospital for her mother to eat if it will get more nutrition into her. Subjective Date/time seen: 02/22/24 11:54 Interval history: Patient continues to slowly improve. A little less talkative today but does answer questions. Drinking her protein shakes but not eating much solid food. Her daughter is at the bedside today and she did bring some strawberries and the patient ate most to the strawberries. White blood [place] down [place] 15,000 [place] [address] yesterday. No fever. No tachycardia. Exam GI: Other: abdomen is soft and nondistended. Iron drain in place. Dressing is dry. Output from the drain is minimal purulent. Objective Data Vital Signs Vital Signs: Vital Signs - 24 hr 02/21/24 12:00 02/21/24 14:00 02/21/24 19:46 Temperature 36.6 C 36.7 C Pulse Rate 67 68 61 Respiratory Rate 18 20 Blood Pressure 135/35 L 156/32 H Pulse Oximetry 97 98 Oxygen Delivery 02/21/24 20:45 02/22/24 03:29 02/22/24 08:09 Temperature 36.5 C 36.6 C Pulse Rate 55 L 56 L Respiratory Rate 16 16 Blood Pressure 167/31 H 158/42 H Pulse Oximetry 98 99 Oxygen Delivery Room Air 02/22/24 08:45 02/22/24 08:41 Temperature Pulse Rate 58 L Respiratory Rate Blood Pressure Pulse Oximetry Oxygen Delivery Room Air Intake/Output Intake/Output: Intake & Output 02/19/24 02/20/24 02/21/24 02/22/24 23:59 23:59 23:59 23:59 Intake Total 2420 2215 2985 670 Output Total 1750 1800 1740 800 Balance 666 626 4562 -130 Meds/Results Medications: Active Medications Generic Name Dose Route Start Last Admin Trade Name Freq PRN Reason Stop Dose Admin Acetaminophen 650 mg 02/18/24 12:38 Acetaminophen 325 Mg Tablet PO Q4H PRN Mild Pain (1-3) or Fever Al Hydrox/Mg Hydrox/Simethicone 30 ml 02/18/24 12:38 Mag Hydrox/Al Hydrox/Simeth 30 Ml Udc PO QID PRN Dyspepsia Allopurinol 300 mg 02/19/24 09:00 02/22/24 08:45 Allopurinol 300 Mg Tablet PO 300 mg DAILY JENNA Administration Hydralazine HCl 100 mg 02/19/24 09:00 02/22/24 08:41 Hydralazine Hcl 50 Mg Tablet PO Not Given DAILY JENNA Hydrochlorothiazide 12.5 mg 02/19/24 09:00 02/22/24 08:41 Hydrochlorothiazide 12.5 Mg Capsule PO Not Given QAM JENNA Levofloxacin/Dextrose 750 mg in 150 mls @ 100 mls/hr 02/20/24 01:00 02/22/24 02:38 Levaquin 750 Mg/D5w 150 Ml IVPB Infused Q48H JENNA Infusion Magnesium Hydroxide 30 ml 02/18/24 12:38 02/19/24 17:00 Magnesium Hydroxide Susp 30 Ml Udc PO 30 ml DAILY PRN Administration Constipation Metoprolol Succinate 50 mg 02/19/24 09:00 02/22/24 08:45 Metoprolol Succinate Ext Rel 50 Mg Tabcr PO 50 mg DAILY JENNA Administration Valsartan 80 mg 02/19/24 09:00 02/22/24 08:45 Valsartan 80 Mg Tablet PO 80 mg QAM JENNA Administration Radiology Results: ITS Impressions Chest X-Ray 02/17/24 18:53 IMPRESSION: No acute cardiopulmonary process. Chest/Abdomen/Pelvis CT 02/17/24 21:32 IMPRESSION: Mild initial edema. Mild esophagitis/gastritis. Large right psoas abscess, measuring up to 19.7 cm, which may extend from the inferior pole the right kidney. A 3.4 cm left perirenal collection, a suspected abscess, is also present. Head CT 02/18/24 05:35 Impression: No significant abnormality seen. Catheter Placement CT 02/18/24 15:18 IMPRESSION: 1. Successful CT-guided right retroperitoneal abscess drainage. 2. 10 mL opaque, light green fluid was sent for aerobic and anaerobic cultures. Brain MRI 02/20/24 12:12 IMPRESSION: 1. Moderate nonspecific cerebral white matter disease, which likely represents chronic small vessel ischemic disease. Labs Labs: Laboratory Results - last 24 hr 02/22/24 04:50 WBC 15.1 H RBC 2.91 L Hgb 8.0 L Hct 27.0 L MCV 92.8 MCH 27.5 MCHC 29.6 L RDW 16.9 H Plt Count 500 H MPV 10.1 Immature Gran % (Auto) 2.1 H Neut % (Auto) 78.3 H Lymph % (Auto) 9.4 L [place] % (Auto) 6.4 Eos % (Auto) 3.1 Baso % (Auto) 0.7 Lymph # (Auto) 1.41 [place] # (Auto) 1.0 H Eos # (Auto) 0.5 H Baso # (Auto) 0.1 Abs Immat Gran (auto) 0.32 H Absolute Neuts (auto) 11.8 H Absolute Nucleated RBC 0.000 Nucleated RBC % 0.0 Sodium 137 Potassium 4.1 Chloride 115 H Carbon Dioxide 17 L Anion Gap 5 BUN 21 H Creatinine 0.80 Estim Creat Clear Calc 36 Estimated GFR > 60 Glucose 92 Calcium 11.0 H C-Reactive Protein 2.5 H Albumin 2.4 L
[2024-02-22 13:58] VITALS: BP 150/43; PULSE 57; RESP 16; TEMP 36.6; O2SAT 99
[2024-02-22 20:00] VITALS: O2SAT 99
[2024-02-22 20:58] VITALS: BP 168/42; PULSE 56; RESP 17; TEMP 36.4; O2SAT 99
[2024-02-23 05:15] VITALS: BP 115/35; PULSE 54; RESP 17; TEMP 36.3; O2SAT 98
[2024-02-23 05:31] LABS: Hematocrit 26.7 % (37.0-47.0); Hemoglobin 8.3 g/dL (12.0-15.0); Mean Corpuscular HGB Conc 31.1 g/dl (32-36); Mean Corpuscular Hemoglobin 26.9 pg (26-34); Mean Corpuscular Volume 86.4 fl (80-100); Mean Platelet Volume 10.1 fl (7.4-10.4); Platelet Count Result 500 k/mm3 (150-375); Red Blood Count 3.09 M/mm3 (4.2-5.4); Red Cell Distribution Width 16.8 % (11.5-14.5); White Blood Count 15.5 K/mm3 (4.5-10.0)
[2024-02-23 05:41] LABS: Alanine Aminotransferase 16 U/L (6-35); Albumin Level 2.5 g/dL (3.5-5.1); Alkaline Phosphatase 78 U/L (38-126); Anion Gap 2 mmol/L (4-12); Aspartate Amino Transferase 32 U/L (14-36); Bilirubin,Total 0.5 mg/dL (0.2-1.3); Blood Urea Nitrogen 21 mg/dL (7-17); Carbon Dioxide 22 mmol/L (22-30); Chloride 110 mmol/L (98-107); Estimated CRCL calculation 36 ml/min; Estimated Glomerular Filt Rate > 60; Glucose 98 mg/dL (65-110); Potassium 3.7 mmol/L (3.4-5.0); Sodium 134 mmol/L (137-145)
[2024-02-23 06:52] LABS: Folic Acid 9.1 ng/mL (2.76->20); Vitamin B12 > 1000.0 pg/mL (239-931)
--- NOTE | 2024-02-23 07:14 | PM.IMPN ---
Progress Note: A&P Assessment and Plan (1) Psoas abscess: Code(s): K68.12 - Psoas muscle abscess Status: Acute Assessment and Plan: ct abd/pelvis- Large right psoas abscess, measuring up to 19.7 cm, which may extend from the inferior pole the right kidney. A 3.4 cm left perirenal collection, a suspected abscess, is also present. Large right psoas abscess s/p percutaneous drainage on 02/18/2024 Abscess cultures with growth of E coli, also growing E coli in urine Continue Levaquin- swithced to PO dose today 02/22. Flagyl d/jostin WBC continues to improve, 15.1 today. Platelet count also continues to improve. CRP trending down Preliminary blood cultures negative today Repeat CT to reassess abscess- completed 02/22 (2) UTI (urinary tract infection): Qualifiers: Hematuria presence: without hematuria Urinary tract infection type: acute cystitis Qualified Code(s): N30.00 - Acute cystitis without hematuria Code(s): N39.0 - Urinary tract infection, site not specified Status: Acute Assessment and Plan: Urine culture with growth of E coli Continue Levaquin based on sensitivities Continue Rodríguez catheter at this time (3) DIAZ (acute kidney injury): Code(s): N17.9 - Acute kidney failure, unspecified Status: Acute Assessment and Plan: Creatinine on presentation elevated at 1.4. Baseline appears to be around 1.0 Creatinine has improved to 0.8 today 02/22 IV fluids have been discontinued (4) Confusion: Code(s): R41.0 - Disorientation, unspecified Status: Acute Assessment and Plan: Patient remains confused, only reliably oriented to self Head CT on admission was unremarkable Brain MRI with moderate nonspecific white matter disease; no acute findings Likely has underlying dementia; possibly worsened due to acute infection Appreciate Neurology consultation Ammonia level low. TSH- 3.03 wnl B12- >1000 - elevated folate- WNL (5) Hypercalcemia: Code(s): E83.52 - Hypercalcemia Status: Acute Assessment and Plan: Calcium markedly elevated on presentation, 12.6 Improved to 11.0 today Continue to monitor (6) Paroxysmal A-fib: Code(s): I48.0 - Paroxysmal atrial fibrillation Status: Chronic Assessment and Plan: Rate is controlled on home metoprolol (7) Hypertension: Code(s): I10 - Essential (primary) hypertension Status: Acute Assessment and Plan: Blood pressures reviewed and systolic slightly elevated monitor for now Continue home antihypertensives Time Spent With Patient Time with patient: less than 15 minutes Subjective Date/time seen: 02/23/24 07:14 Interval history: 02/22- pt is seen and examined at the bedside. pt does not speak much- but follows one step simple commands. Just came back from repeat cat scan. Disucssed with pharm ID and antibiotics switched to oral as pt doing well with oral intake. IV is lost and unable to get a new access at this time- ok to leave it out for now. Review of Systems Review of Systems: 14 systems were reviewed with pertinent positives and negatives per HPI. Except as documented in the HPI/progress notes, all other systems were reviewed and are negative. All systems reviewed & are unremarkable except as noted in HPI and below ROS unobtainable: Yes unobtainable due to mental status Exam Narrative: General: well-nourished, well appearing 83-year-old female, resting in bed, comfortable Neuro: awake, alert, no focal neuro deficits noted, confused and unable to answer all questions appropriately. follows one step simple commands HEENMT: normocephalic, atraumatic, EOMI, sclerae anicteric Respiratory: clear to auscultation bilaterally, nonlabored breathing Cardio: regular rate, regular rhythm with S1-S2 Abdomen: nondistended, normoactive bowel sounds, soft, nontender to palpation, mild right flank tenderness at site of drain with output of light pink serous fluid : Rodríguez catheter draining clear yellow urine Extremities: no edema, erythema, or tenderness to palpation, DP pulses 2+ bilaterally Skin: no rashes or lesions, warm and dry Psych: Confused, judgment and insight poor Objective Data Vital Signs Vital Signs: Vital Signs - 24 hr 02/22/24 08:09 02/22/24 08:45 02/22/24 08:41 Temperature 97.8 F Pulse Rate 56 L 58 L Respiratory Rate 16 Blood Pressure 158/42 H Pulse Oximetry 99 Oxygen Delivery Room Air 02/22/24 13:58 02/22/24 20:58 02/22/24 20:00 Temperature 97.8 F 97.6 F Pulse Rate 57 L 56 L Respiratory Rate 16 17 Blood Pressure 150/43 H 168/42 H Pulse Oximetry 99 99 99 Oxygen Delivery Room Air 02/23/24 05:15 Temperature 97.3 F L Pulse Rate 54 L Respiratory Rate 17 Blood Pressure 115/35 L Pulse Oximetry 98 Oxygen Delivery Intake/Output Intake/Output: Intake & Output 02/20/24 02/21/24 02/22/24 02/23/24 23:59 23:59 23:59 23:59 Intake Total 2215 2985 1070 0 Output Total 1800 1740 1800 350 Balance 415 3080 -460 -015 Meds/Results Medications: Active Medications Generic Name Dose Route Start Last Admin Trade Name Freq PRN Reason Stop Dose Admin Acetaminophen 650 mg 02/18/24 12:38 Acetaminophen 325 Mg Tablet PO Q4H PRN Mild Pain (1-3) or Fever Al Hydrox/Mg Hydrox/Simethicone 30 ml 02/18/24 12:38 Mag Hydrox/Al Hydrox/Simeth 30 Ml Udc PO QID PRN Dyspepsia Allopurinol 300 mg 02/19/24 09:00 02/22/24 08:45 Allopurinol 300 Mg Tablet PO 300 mg DAILY JENNA Administration Hydralazine HCl 100 mg 02/19/24 09:00 02/22/24 08:41 Hydralazine Hcl 50 Mg Tablet PO Not Given DAILY JENNA Hydrochlorothiazide 12.5 mg 02/19/24 09:00 02/22/24 08:41 Hydrochlorothiazide 12.5 Mg Capsule PO Not Given QAM JENNA Levofloxacin/Dextrose 750 mg in 150 mls @ 100 mls/hr 02/20/24 01:00 02/22/24 02:38 Levaquin 750 Mg/D5w 150 Ml IVPB Infused Q48H JENNA Infusion Magnesium Hydroxide 30 ml 02/18/24 12:38 02/19/24 17:00 Magnesium Hydroxide Susp 30 Ml Udc PO 30 ml DAILY PRN Administration Constipation Metoprolol Succinate 50 mg 02/19/24 09:00 02/22/24 08:45 Metoprolol Succinate Ext Rel 50 Mg Tabcr PO 50 mg DAILY JENNA Administration Valsartan 80 mg 02/19/24 09:00 02/22/24 08:45 Valsartan 80 Mg Tablet PO 80 mg QAM JENNA Administration Radiology Results: ITS Impressions Chest X-Ray 02/17/24 18:53 IMPRESSION: No acute cardiopulmonary process. Chest/Abdomen/Pelvis CT 02/17/24 21:32 IMPRESSION: Mild initial edema. Mild esophagitis/gastritis. Large right psoas abscess, measuring up to 19.7 cm, which may extend from the inferior pole the right kidney. A 3.4 cm left perirenal collection, a suspected abscess, is also present. Head CT 02/18/24 05:35 Impression: No significant abnormality seen. Catheter Placement CT 02/18/24 15:18 IMPRESSION: 1. Successful CT-guided right retroperitoneal abscess drainage. 2. 10 mL opaque, light green fluid was sent for aerobic and anaerobic cultures. Brain MRI 02/20/24 12:12 IMPRESSION: 1. Moderate nonspecific cerebral white matter disease, which likely represents chronic small vessel ischemic disease. Labs Labs: Laboratory Results - last 24 hr 02/23/24 04:47 WBC 15.5 H RBC 3.09 L Hgb 8.3 L Hct 26.7 L MCV 86.4 D MCH 26.9 MCHC 31.1 L RDW 16.8 H Plt Count 500 H MPV 10.1 Sodium 134 L Potassium 3.7 Chloride 110 H Carbon Dioxide 22 Anion Gap 2 L BUN 21 H Creatinine 0.80 Estim Creat Clear Calc 36 Estimated GFR > 60 Glucose 98 Calcium 11.0 H Total Bilirubin 0.5 AST 32 ALT 16 Alkaline Phosphatase 78 Total Protein 5.0 L Albumin 2.5 L Vitamin B12 > 1000.0 H Folate 9.1 TSH (Reflex) 3.030 Quality VTE Prophylaxis VTE prophylaxis: mechanical ordered
--- NOTE | 2024-02-23 09:22 | P.PNUR_ITS ---
Progress Note: A&P Assessment and Plan (1) Psoas abscess: Code(s): K68.12 - Psoas muscle abscess Status: Acute Assessment and Plan: Noted to have markedly enlarged right psoas abscess of unclear origin. Underwent CT-guided percutaneous abscess drainage on 02/18/2024. Abscess cultures with growth of E coli, also growing E coli in urine Continue Levaquin based on cultures Repeat CT abdomen/pelvis to be done today to reassess abscess and continue to monitor smaller left retroperitoneal abscess Monitor drain output (2) UTI (urinary tract infection): Qualifiers: Hematuria presence: without hematuria Urinary tract infection type: acute cystitis Qualified Code(s): N30.00 - Acute cystitis without hematuria Code(s): N39.0 - Urinary tract infection, site not specified Status: Acute Assessment and Plan: Urine culture with growth of E coli. Continue Levaquin based on sensitivities. Blood cultures negative to date (3) Urine retention: Code(s): R33.9 - Retention of urine, unspecified Status: Chronic Assessment and Plan: Noted to have history of urinary retention during previous hospital admission 02/2023. CT at that time showed a distended urinary bladder with tiny foci of gas which was felt to be due to acute UTI (E. coli) for which she was treated appropriately. She was voiding well during that time and had a PVR of 10 cc. Rodríguez catheter placed during this admission which will be continued at this time. No hydro or other findings of chronic retention on CT. Plan for Rodríguez removal pending clinical improvement when she is more ambulatory. Will need to monitor PVR to ensure she is emptying well. Subjective Subjective Date/Time Seen: 02/23/24 09:22 Interval history: Gely remains confused today. She is able states she feels tired and complains of some right flank pain. Otherwise unable to provide much history. Her Rodríguez catheter draining clear yellow urine. Her drain has scant output of gamboa serous discharge. Review of Systems 2 Review of Systems: All systems reviewed & are unremarkable except as noted in HPI and below Exam Narrative: General: Awake, alert, oriented to self only, comfortable, no acute distress HEENT: Normocephalic, atraumatic, sclerae anicteric Respiratory: Normal respiratory effort, no accessory muscle use Abdomen: Nondistended, soft, nontender, mild right flank tenderness at site of drain, retroperitoneal drain with scant amount of gamboa serous output : Rodríguez catheter draining clear yellow urine Skin: Normal coloration, warm and dry Neurologic: No focal neuro deficits noted Psychiatric: Confused Objective Data Vital Signs Vital Signs: Vital Signs - 24 hr 02/22/24 13:58 02/22/24 20:58 02/22/24 20:00 Temperature 97.8 F 97.6 F Pulse Rate 57 L 56 L Respiratory Rate 16 17 Blood Pressure 150/43 H 168/42 H Pulse Oximetry 99 99 99 Oxygen Delivery Room Air 02/23/24 05:15 Temperature 97.3 F L Pulse Rate 54 L Respiratory Rate 17 Blood Pressure 115/35 L Pulse Oximetry 98 Oxygen Delivery Intake/Output Intake/Output: Intake & Output 02/20/24 02/21/24 02/22/24 02/23/24 23:59 23:59 23:59 23:59 Intake Total 2215 2985 1070 0 Output Total 1800 1740 1800 350 Balance 415 7784 -106 -438 Meds/Results Medications: Active Medications Generic Name Dose Route Start Last Admin Trade Name Freq PRN Reason Stop Dose Admin Acetaminophen 650 mg 02/18/24 12:38 Acetaminophen 325 Mg Tablet PO Q4H PRN Mild Pain (1-3) or Fever Al Hydrox/Mg Hydrox/Simethicone 30 ml 02/18/24 12:38 Mag Hydrox/Al Hydrox/Simeth 30 Ml Udc PO QID PRN Dyspepsia Allopurinol 300 mg 02/19/24 09:00 02/22/24 08:45 Allopurinol 300 Mg Tablet PO 300 mg DAILY JENNA Administration Hydralazine HCl 100 mg 02/19/24 09:00 02/22/24 08:41 Hydralazine Hcl 50 Mg Tablet PO Not Given DAILY JENNA Hydrochlorothiazide 12.5 mg 02/19/24 09:00 02/22/24 08:41 Hydrochlorothiazide 12.5 Mg Capsule PO Not Given QAM JENNA Levofloxacin/Dextrose 750 mg in 150 mls @ 100 mls/hr 02/20/24 01:00 02/22/24 02:38 Levaquin 750 Mg/D5w 150 Ml IVPB Infused Q48H JENNA Infusion Magnesium Hydroxide 30 ml 02/18/24 12:38 02/19/24 17:00 Magnesium Hydroxide Susp 30 Ml Udc PO 30 ml DAILY PRN Administration Constipation Metoprolol Succinate 50 mg 02/19/24 09:00 02/22/24 08:45 Metoprolol Succinate Ext Rel 50 Mg Tabcr PO 50 mg DAILY JENNA Administration Valsartan 80 mg 02/19/24 09:00 02/22/24 08:45 Valsartan 80 Mg Tablet PO 80 mg QAM JENNA Administration Radiology Results: ITS Impressions Chest X-Ray 02/17/24 18:53 IMPRESSION: No acute cardiopulmonary process. Chest/Abdomen/Pelvis CT 02/17/24 21:32 IMPRESSION: Mild initial edema. Mild esophagitis/gastritis. Large right psoas abscess, measuring up to 19.7 cm, which may extend from the inferior pole the right kidney. A 3.4 cm left perirenal collection, a suspected abscess, is also present. Head CT 02/18/24 05:35 Impression: No significant abnormality seen. Catheter Placement CT 02/18/24 15:18 IMPRESSION: 1. Successful CT-guided right retroperitoneal abscess drainage. 2. 10 mL opaque, light green fluid was sent for aerobic and anaerobic cultures. Brain MRI 02/20/24 12:12 IMPRESSION: 1. Moderate nonspecific cerebral white matter disease, which likely represents chronic small vessel ischemic disease. Labs Labs: Laboratory Results - last 24 hr 02/23/24 04:47 WBC 15.5 H RBC 3.09 L Hgb 8.3 L Hct 26.7 L MCV 86.4 D MCH 26.9 MCHC 31.1 L RDW 16.8 H Plt Count 500 H MPV 10.1 Sodium 134 L Potassium 3.7 Chloride 110 H Carbon Dioxide 22 Anion Gap 2 L BUN 21 H Creatinine 0.80 Estim Creat Clear Calc 36 Estimated GFR > 60 Glucose 98 Calcium 11.0 H Total Bilirubin 0.5 AST 32 ALT 16 Alkaline Phosphatase 78 Total Protein 5.0 L Albumin 2.5 L Vitamin B12 > 1000.0 H Folate 9.1 TSH (Reflex) 3.030
[2024-02-23 09:46] VITALS: BP 174/48
[2024-02-23] MEDS: allopurinoL 300 MG TABLET PO (09:47)
[2024-02-23] MEDS: hydrALAZINE HCL 50 MG TABLET 100 MG PO (09:47)
[2024-02-23] MEDS: hydroCHLOROthiazide 12.5 MG CAPSULE PO (09:48)
[2024-02-23] MEDS: VALSARTAN 80 MG TABLET PO (09:48)
--- NOTE | 2024-02-23 11:15 | WPDNEUROLOGY ---
Neurology EEG Report General Information Date of Study: 02/20/24 TEST electroencephalogram DIAGNOSIS metabolic encephalopathy CONDITION OF RECORDING inpatient bedside study EEG NUMBER [id number] CLINICAL HISTORY The patient is 83 years old his sepsis and change in mental status EEG DESCRIPTION During wakefulness the background activity consists of posterior down rhythm in theta range at approximately 6 hertz with an amplitude of 15-30 microvolts which appears mildly formed. Anteriorly low amplitude mixed frequency activity was seen however muscle tension artifacts were seen frequently in frontotemporal region. During drowsiness attenuation of background activity and rhythmic theta activity was seen. This at times appeared better defined over the left and right hemisphere. Hyperventilation or photic stimulation were not performed. Patient did not lose to stage 2 sleep. IMPRESSION This is an abnormal EEG due to presence of moderate diffuse background slowing suggestive generalized cephalopathy. However no definite focal or paroxysmal epileptiform abnormality was seen. A follow-up study should be considered if clinically relevant.
--- NOTE | 2024-02-23 11:52 | P.PNGS_ITS ---
Progress Note: A&P Assessment and Plan (1) Psoas abscess: Code(s): K68.12 - Psoas muscle abscess Status: Acute Assessment and Plan: Abscess drained percutaneously in Radiology and sepsis is resolving. Her confu davina and mentation has been improving with resolution of her sepsis. Continue IV antibiotics, on IV Levaquin. Abscess and urine cultures growing E.coli sensitive to levofloxacin. Continue to monitor percutaneous drain for now. WBC overall trending down to 15,000. Repeat CT scan of the abdomen and pelvis ordered today to re-evaluate the abscesses. Plan I have discussed the patient's case and plan of care with Dr. Hamm. Subjective Subjective Date/Time Seen: 02/23/24 08:52 Patient reports: no new complaints, feels better, pain is less and afebrile Interval history: This is an 83 yo female who was brought to the ER from her home where she lives with her daughter for weakness and poor appetite. Workup showed a very large right psoas retroperitoneal abscess extending all the way from the right kidney down into the pelvis. She had a smaller, 3.4 cm, abscess behind the left kidney. She had percutaneous drainage of the right psoas abscess on 02/17. Chart reviewed. She is seen with her daughter at the bedside. They report her confusion has improved significantly as her infection has improved. Urology was consulted due to persistent right hydronephrosis. No plans for any urological intervention at this time. She reports overall feeling better, but feeling very tired. She had just worked with therapy prior to me presenting in the room. Her daughter mentions swelling in her bilateral upper extremities. She also has reported generalized weakness that was going on about a week prior to admission. Before this illness, she was independent at home. The patient complains of some mild right back pain. No other complaints at this time. Exam Const: General: comfortable, awake and tired appearing Orientation/consciousness: oriented to person and oriented to place GI: Inspection: non-distended GI Palp: Yes Soft to palpation, Yes Tenderness to palpation present (GI) (very mild diffuse tenderness, no focal tenderness), No Guarding due to palpation present (GI), No Rebound tenderness present and Yes Other GI palpation findings present (no peritoneal signs) Auscultation: normal bowel sounds Other: Right posterior percutaneous drain with dressing dry and intact, moderate about (about 60-70 cc) pink/gamboa drainage Extrem: General: edema bilateral (upper extremities, equal bilaterally, 2-3+ pitting) Objective Data Vital Signs Vital Signs: Vital Signs - 24 hr 02/22/24 13:58 02/22/24 20:58 02/22/24 20:00 Temperature 97.8 F 97.6 F Pulse Rate 57 L 56 L Respiratory Rate 16 17 Blood Pressure 150/43 H 168/42 H Pulse Oximetry 99 99 99 Oxygen Delivery Room Air 02/23/24 05:15 02/23/24 09:46 02/23/24 08:00 Temperature 97.3 F L Pulse Rate 54 L Respiratory Rate 17 Blood Pressure 115/35 L 174/48 H Pulse Oximetry 98 Oxygen Delivery Room Air Intake/Output Intake/Output: Intake & Output 02/20/24 02/21/24 02/22/24 02/23/24 23:59 23:59 23:59 23:59 Intake Total 2215 2985 1070 0 Output Total 1800 1740 1800 350 Balance 415 6301 -085 -463 Meds/Results Medications: Active Medications Generic Name Dose Route Start Last Admin Trade Name Freq PRN Reason Stop Dose Admin Acetaminophen 650 mg 02/18/24 12:38 Acetaminophen 325 Mg Tablet PO Q4H PRN Mild Pain (1-3) or Fever Allopurinol 300 mg 02/19/24 09:00 02/23/24 09:47 Allopurinol 300 Mg Tablet PO 300 mg DAILY JENNA Administration Hydralazine HCl 100 mg 02/19/24 09:00 02/23/24 09:47 Hydralazine Hcl 50 Mg Tablet PO 100 mg DAILY JENNA Administration Hydrochlorothiazide 12.5 mg 02/19/24 09:00 02/23/24 09:48 Hydrochlorothiazide 12.5 Mg Capsule PO 12.5 mg QAM JENNA Administration Levofloxacin 750 mg 02/23/24 21:00 Levofloxacin 750 Mg Tablet PO Q48H [facility] Metoprolol Succinate 50 mg 02/19/24 09:00 02/23/24 09:39 Metoprolol Succinate Ext Rel 50 Mg Tabcr PO Not Given DAILY JENNA Valsartan 80 mg 02/19/24 09:00 02/23/24 09:48 Valsartan 80 Mg Tablet PO 80 mg QAM JENNA Administration Radiology Results: ITS Impressions Chest X-Ray 02/17/24 18:53 IMPRESSION: No acute cardiopulmonary process. Chest/Abdomen/Pelvis CT 02/17/24 21:32 IMPRESSION: Mild initial edema. Mild esophagitis/gastritis. Large right psoas abscess, measuring up to 19.7 cm, which may extend from the inferior pole the right kidney. A 3.4 cm left perirenal collection, a suspected abscess, is also present. Head CT 02/18/24 05:35 Impression: No significant abnormality seen. Catheter Placement CT 02/18/24 15:18 IMPRESSION: 1. Successful CT-guided right retroperitoneal abscess drainage. 2. 10 mL opaque, light green fluid was sent for aerobic and anaerobic cultures. Brain MRI 02/20/24 12:12 IMPRESSION: 1. Moderate nonspecific cerebral white matter disease, which likely represents chronic small vessel ischemic disease. Labs Labs: Laboratory Results - last 24 hr 02/23/24 04:47 WBC 15.5 H RBC 3.09 L Hgb 8.3 L Hct 26.7 L MCV 86.4 D MCH 26.9 MCHC 31.1 L RDW 16.8 H Plt Count 500 H MPV 10.1 Sodium 134 L Potassium 3.7 Chloride 110 H Carbon Dioxide 22 Anion Gap 2 L BUN 21 H Creatinine 0.80 Estim Creat Clear Calc 36 Estimated GFR > 60 Glucose 98 Calcium 11.0 H Total Bilirubin 0.5 AST 32 ALT 16 Alkaline Phosphatase 78 Total Protein 5.0 L Albumin 2.5 L Vitamin B12 > 1000.0 H Folate 9.1 TSH (Reflex) 3.030
[2024-02-23 14:00] VITALS: BP 153/38; PULSE 62; RESP 20; TEMP 36.4; O2SAT 90
[2024-02-23 17:10] VITALS: BP 146/42
[2024-02-23] MEDS: hydrALAZINE HCL 50 MG TABLET PO (17:11)
--- NOTE | 2024-02-23 17:53 | WPDNEUROPN ---
Progress Note: A&P Assessment and Plan (1) Sepsis with metabolic encephalopathy: Code(s): A41.9 - Sepsis, unspecified organism; R65.20 - Severe sepsis without septic shock; G93.41 - Metabolic encephalopathy Status: Acute (2) Psoas abscess: Code(s): K68.12 - Psoas muscle abscess Status: Acute (3) Paroxysmal A-fib: Code(s): I48.0 - Paroxysmal atrial fibrillation Status: Chronic Plan The patient continues to be nonverbal. EEG performed today shows moderate diffuse background slowing. MRI did not show evidence for new stroke. It is still appears to be picture of metabolic encephalopathy due to sepsis. He would be have any further concerns we can perform a spinal tap but she had not had any nausea vomiting photophobia and there is no stiffness of the neck at the time. Subjective Date/time seen: 02/23/24 17:53 Interval history: The patient remains nonverbal. She is being treated for the swats abscess and being evaluated by Urology as well as General surgery Services. Her records were reviewed Exam Narrative: Patient would open her eyes but does not communicate. She did not answer any other questions. There is no nuchal rigidity. No significant asymmetry of the tone in both upper lower limbs noted at this time. No involuntary movements seen. Objective Data Vital Signs Vital Signs: Vital Signs - 24 hr 02/22/24 20:58 02/22/24 20:00 02/23/24 05:15 Temperature 36.4 C 36.3 C L Pulse Rate 56 L 54 L Respiratory Rate 17 17 Blood Pressure 168/42 H 115/35 L Pulse Oximetry 99 99 98 Oxygen Delivery Room Air 02/23/24 09:46 02/23/24 08:00 02/23/24 14:00 Temperature 36.4 C Pulse Rate 62 Respiratory Rate 20 Blood Pressure 174/48 H 153/38 H Pulse Oximetry 90 Oxygen Delivery Room Air 02/23/24 17:10 Temperature Pulse Rate Respiratory Rate Blood Pressure 146/42 H Pulse Oximetry Oxygen Delivery Intake/Output Intake/Output: Intake & Output 02/20/24 02/21/24 02/22/24 02/23/24 23:59 23:59 23:59 23:59 Intake Total 2215 2985 1070 0 Output Total 1800 1740 1800 350 Balance 415 0256 -730 -350 Meds/Results Medications: Active Medications Generic Name Dose Route Start Last Admin Trade Name Freq PRN Reason Stop Dose Admin Acetaminophen 650 mg 02/18/24 12:38 Acetaminophen 325 Mg Tablet PO Q4H PRN Mild Pain (1-3) or Fever Allopurinol 300 mg 02/19/24 09:00 02/23/24 09:47 Allopurinol 300 Mg Tablet PO 300 mg DAILY JENNA Administration Hydralazine HCl 50 mg 02/23/24 17:00 02/23/24 17:11 Hydralazine Hcl 50 Mg Tablet PO 50 mg TID JENNA Administration Hydrochlorothiazide 12.5 mg 02/19/24 09:00 02/23/24 09:48 Hydrochlorothiazide 12.5 Mg Capsule PO 12.5 mg QAM JENNA Administration Levofloxacin 750 mg 02/23/24 21:00 Levofloxacin 750 Mg Tablet PO Q48H JENNA Metoprolol Succinate 50 mg 02/19/24 09:00 02/23/24 09:39 Metoprolol Succinate Ext Rel 50 Mg Tabcr PO Not Given DAILY JENNA Valsartan 80 mg 02/19/24 09:00 02/23/24 09:48 Valsartan 80 Mg Tablet PO 80 mg QAM JENNA Administration Radiology Results: ITS Impressions Chest X-Ray 02/17/24 18:53 IMPRESSION: No acute cardiopulmonary process. Chest/Abdomen/Pelvis CT 02/17/24 21:32 IMPRESSION: Mild initial edema. Mild esophagitis/gastritis. Large right psoas abscess, measuring up to 19.7 cm, which may extend from the inferior pole the right kidney. A 3.4 cm left perirenal collection, a suspected abscess, is also present. Head CT 02/18/24 05:35 Impression: No significant abnormality seen. Catheter Placement CT 02/18/24 15:18 IMPRESSION: 1. Successful CT-guided right retroperitoneal abscess drainage. 2. 10 mL opaque, light green fluid was sent for aerobic and anaerobic cultures. Brain MRI 02/20/24 12:12 IMPRESSION: 1. Moderate nonspecific cerebral white matter disease, which likely represents chronic small vessel ischemic disease. Abdomen/Pelvis CT 02/23/24 12:31 IMPRESSION: 1. Small pericardial effusion. 2. Small pleural effusions. 3. Percutaneous drain in right psoas muscle. Right psoas muscle remains larger than the left suggesting inflammation, but no definite significant residual drainable fluid is identified. 4. 2.2 x 0.5 cm right perinephric abscess. 5. 2.2 x 1.2 cm left perinephric abscess. Labs Labs: Laboratory Results - last 24 hr 02/23/24 04:47 WBC 15.5 H RBC 3.09 L Hgb 8.3 L Hct 26.7 L MCV 86.4 D MCH 26.9 MCHC 31.1 L RDW 16.8 H Plt Count 500 H MPV 10.1 Sodium 134 L Potassium 3.7 Chloride 110 H Carbon Dioxide 22 Anion Gap 2 L BUN 21 H Creatinine 0.80 Estim Creat Clear Calc 36 Estimated GFR > 60 Glucose 98 Calcium 11.0 H Total Bilirubin 0.5 AST 32 ALT 16 Alkaline Phosphatase 78 Total Protein 5.0 L Albumin 2.5 L Vitamin B12 > 1000.0 H Folate 9.1 TSH (Reflex) 3.030
[2024-02-23 19:17] VITALS: BP 151/36; PULSE 67; RESP 18; TEMP 36; O2SAT 99
[2024-02-23] MEDS: levoFLOXacin 750 MG TABLET PO (20:27)
[2024-02-24] VITALS (8 sets, daily range): BP systolic 113–165; BP diastolic 36–51; PULSE 60–80; RESP 16–20; TEMP 36.4–36.6; O2SAT 94–99
[2024-02-24 06:10] LABS: Parathyroid Intact 34.5 pg/mL (7.5-53.5)
[2024-02-24] MEDS: allopurinoL 300 MG TABLET PO (08:28)
[2024-02-24] MEDS: hydrALAZINE HCL 50 MG TABLET PO ×2 (08:28→17:13)
[2024-02-24] MEDS: hydroCHLOROthiazide 12.5 MG CAPSULE PO (08:28)
[2024-02-24] MEDS: METOPROLOL SUCCINATE EXT REL 50 MG TABCR PO (08:28)
[2024-02-24] MEDS: VALSARTAN 80 MG TABLET PO (08:28)
--- NOTE | 2024-02-24 09:36 | WPDUROPN2 ---
Progress Note: A&P Assessment and Plan (1) Psoas abscess: Code(s): K68.12 - Psoas muscle abscess Status: Acute Assessment and Plan: Noted to have markedly enlarged right psoas abscess Underwent CT-guided percutaneous abscess drainage on 02/18/2024. Abscess cultures with growth of E coli, also growing E coli in urine Continue Levaquin based on cultures. Recommend a 3 week course of p.o. antibiotics Repeat CT abdomen/pelvis completed on 02/22 shows no significant residual drainable fluid of the right psoas Continue with drain today, plan for removal tomorrow if output remains low (2) Perinephric abscess: Code(s): N15.1 - Renal and perinephric abscess Status: Acute Assessment and Plan: Repeat CT demonstrates bilateral small perinephric abscesses Will continue to closely observe and plan for repeat CT as an outpatient in the next 2 weeks (3) UTI (urinary tract infection): Qualifiers: Hematuria presence: without hematuria Urinary tract infection type: acute cystitis Qualified Code(s): N30.00 - Acute cystitis without hematuria Code(s): N39.0 - Urinary tract infection, site not specified Status: Acute Assessment and Plan: Urine culture with growth of E coli. Continue Levaquin based on sensitivities. Blood cultures negative (4) Urine retention: Code(s): R33.9 - Retention of urine, unspecified Status: Chronic Assessment and Plan: Noted to have history of urinary retention during previous hospital admission 02/2023. CT at that time showed a distended urinary bladder with tiny foci of gas which was felt to be due to acute UTI (E. coli) for which she was treated appropriately. She was voiding well during that time and had a PVR of 10 cc. Rodríguez catheter placed during this admission. No hydro or other findings of chronic retention on CT. Plan for Rodríguez removal pending clinical improvement when she is more ambulatory. Will need to monitor PVR to ensure she is emptying well. Subjective Subjective Date/Time Seen: 02/24/24 09:36 Interval history: Gely's feeling better today. Her mental status appears to be greatly improved and she is participating in conversation answering all questions appropriately. She continues to complain of right flank discomfort seems to be improving. She is tolerating her diet. She denies nausea, vomiting, fever, chills. Review of Systems Review of Systems: All systems reviewed & are unremarkable except as noted in HPI and below Exam Narrative: General: Awake, alert, oriented, comfortable, no acute distress HEENT: Normocephalic, atraumatic, sclerae anicteric Respiratory: Normal respiratory effort, no accessory muscle use Abdomen: Nondistended, soft, nontender, mild right flank tenderness at site of drain, retroperitoneal drain with scant amount of gamboa serous output : Rodríguez catheter draining clear yellow urine Skin: Normal coloration, warm and dry Neurologic: No focal neuro deficits noted Psychiatric: Appropriate mood and affect Objective Data Vital Signs Vital Signs: Vital Signs - 24 hr 02/23/24 09:46 02/23/24 14:00 02/23/24 17:10 Temperature 97.6 F Pulse Rate 62 Respiratory Rate 20 Blood Pressure 174/48 H 153/38 H 146/42 H Pulse Oximetry 90 Oxygen Delivery Fraction of Inspired Oxygen 02/23/24 19:17 02/23/24 20:30 02/24/24 03:26 Temperature 96.8 F L 97.6 F Pulse Rate 67 80 Respiratory Rate 18 18 Blood Pressure 151/36 H 165/41 H Pulse Oximetry 99 98 Oxygen Delivery Room Air Fraction of Inspired Oxygen 02/24/24 08:24 02/24/24 08:28 02/24/24 09:00 Temperature Pulse Rate 70 70 Respiratory Rate Blood Pressure 148/42 H Pulse Oximetry 98 98 Oxygen Delivery Room Air Fraction of Inspired Oxygen 21 Intake/Output Intake/Output: Intake & Output 02/21/24 02/22/24 02/23/24 02/24/24 23:59 23:59 23:59 23:59 Intake Total 2985 1070 50 120 Output Total 1740 1800 1190 830 Balance 1245 -730 -1140 -710 Meds/Results Medications: Active Medications Generic Name Dose Route Start Last Admin Trade Name Freq PRN Reason Stop Dose Admin Acetaminophen 650 mg 02/18/24 12:38 Acetaminophen 325 Mg Tablet PO Q4H PRN Mild Pain (1-3) or Fever Allopurinol 300 mg 02/19/24 09:00 02/24/24 08:28 Allopurinol 300 Mg Tablet PO 300 mg DAILY JENNA Administration Hydralazine HCl 50 mg 02/23/24 17:00 02/24/24 08:28 Hydralazine Hcl 50 Mg Tablet PO 50 mg TID JENNA Administration Hydrochlorothiazide 12.5 mg 02/19/24 09:00 02/24/24 08:28 Hydrochlorothiazide 12.5 Mg Capsule PO 12.5 mg QAM JENNA Administration Levofloxacin 750 mg 02/23/24 21:00 02/23/24 20:27 Levofloxacin 750 Mg Tablet PO 750 mg Q48H JENNA Administration Metoprolol Succinate 50 mg 02/19/24 09:00 02/24/24 08:28 Metoprolol Succinate Ext Rel 50 Mg Tabcr PO 50 mg DAILY JENNA Administration Valsartan 80 mg 02/19/24 09:00 02/24/24 08:28 Valsartan 80 Mg Tablet PO 80 mg QAM JENNA Administration Radiology Results: ITS Impressions Chest X-Ray 02/17/24 18:53 IMPRESSION: No acute cardiopulmonary process. Chest/Abdomen/Pelvis CT 02/17/24 21:32 IMPRESSION: Mild initial edema. Mild esophagitis/gastritis. Large right psoas abscess, measuring up to 19.7 cm, which may extend from the inferior pole the right kidney. A 3.4 cm left perirenal collection, a suspected abscess, is also present. Head CT 02/18/24 05:35 Impression: No significant abnormality seen. Catheter Placement CT 02/18/24 15:18 IMPRESSION: 1. Successful CT-guided right retroperitoneal abscess drainage. 2. 10 mL opaque, light green fluid was sent for aerobic and anaerobic cultures. Brain MRI 02/20/24 12:12 IMPRESSION: 1. Moderate nonspecific cerebral white matter disease, which likely represents chronic small vessel ischemic disease. Abdomen/Pelvis CT 02/23/24 12:31 IMPRESSION: 1. Small pericardial effusion. 2. Small pleural effusions. 3. Percutaneous drain in right psoas muscle. Right psoas muscle remains larger than the left suggesting inflammation, but no definite significant residual drainable fluid is identified. 4. 2.2 x 0.5 cm right perinephric abscess. 5. 2.2 x 1.2 cm left perinephric abscess. Labs Labs: Laboratory Results - last 24 hr 02/24/24 05:16 PTH Intact 34.5
--- NOTE | 2024-02-24 12:34 | PCNFU ---
Nutrition Follow-Up Complete: Severe Protein Calorie Malnutrition as related to inadequate protein energy intake as evidenced by minimal oral intake for > 1-2 months and significant weight loss of 56% (140 lbs) in 1 year. Goal: Meet estimated nutritional needs. Pt current nutrition is regular diet. Nutrition recommendation: Continue with a regular diet. Will discontinue Ensure Compact and order Magic Cup and Ensure Clear TID. Weigh patient. Assist with meals prn. Last recorded weight is 50 kg. No new weights available. Bowel Motility: no BM documented, abdomen soft/nondistended Labs Reviewed: Hgb 8.3, Hct 26.7, Na 134 Meds Noted: hydrochlorothiazide Skin: no pressure ulcers noted Additional Notes: per abdomen/pelvis CT, patient with left/right perinephric abscess. Patient was non-verbal yesterday per MD note, but was talking today. Patient reports she is feeling better and appetite is improving. She denies n/v/d/c. Patient does like milk based supplements but is agreeable to trying Magic Cup and Ensure Clear. UBW 145 lbs. Weight down 35 lbs/24% comparing weight on admission vs UBW. Edema: +3 bilateral lower arm. Intakes previously poor (0-5%) but this morning patient consumed 100% of breakfast. Food preferences: eggs, cranberry juice, lemonade Will monitor weight, labs, skin, oral intake, medication every 5 days
--- NOTE | 2024-02-24 13:40 | P.PNIM_ITS ---
Progress Note: A&P Assessment and Plan (1) Perinephric abscess: Code(s): N15.1 - Renal and perinephric abscess Status: Acute (2) Confusion: Code(s): R41.0 - Disorientation, unspecified Status: Acute (3) Sepsis with metabolic encephalopathy: Code(s): A41.9 - Sepsis, unspecified organism; R65.20 - Severe sepsis without septic shock; G93.41 - Metabolic encephalopathy Status: Acute (4) Chronic anticoagulation: Code(s): Z79.01 - intermediate (current) use of anticoagulants Status: Chronic (5) Psoas abscess: Code(s): K68.12 - Psoas muscle abscess Status: Acute Plan # right psoas abscess with E coli -status post IR drainage 02/17 -antibiotics: P.o. Levaquin based on cultures (for E coli abscess and bacteriuria) -persistent leukocytosis, continue trending -appreciate general surgery consult: Repeat CT abdomen 02/22, shows no significant drainable residual -abscess drain in place # bilateral perinephric abscess -found on CT scan of abdomen -urology recommends [address] follow-up # chronic conditions -essential hypertension: Valsartan, metoprolol, hydrochlorothiazide, hydralazine t.i.d. -gout: Allopurinol -osteoporosis: Alendronate -supplements: B complex, vitamin-C -paroxysmal atrial fibrillation: Anticoagulation Xarelto which is held for procedures, on metoprolol for rate control Diet: Regular diet dietary supplement DVT prophylaxis: SCDs, chemoprophylaxis held for procedures. At home on Xarelto Code status: DNR Disposition: Pending PT, likely discharge greater than 2 days Time Spent With Patient Time: 35 minutes Subjective Date/time seen: 02/24/24 13:40 Interval history: Patient seen examined. Patient is doing well without any new concerns. She has poor recollection of events from last week. Appears her confusion is now improving. Repeat CT scan yesterday showed right and left perinephric abscesses which urology team would like to monitor and have outpatient repeat CT scan in couple weeks. Patient has persistent leukocytosis however is on Levaquin based on sensitivities of cultures. Abdominal CT scan shows no residual drainable fluid from the right psoas muscle. Patient denies fever, chills, nausea, vomiting, diarrhea. She has significant edema in her upper extremities. Review of Systems Review of Systems: 10 point ROS complete, negative other th an what is specified in HPI. Exam Narrative: - GENERAL: Pleasant older woman in no a cute distress. - EYES: EOMI. Anicteric. - HENT: Moist mucous membranes. - LUNGS: Clear to auscultation bilateral ly, no wheezing, rhonchi, or rales. - CARDIOVASCULAR: Regular rate and rhyth m. No murmur. No JVD. - ABDOMEN: Soft, non-tender and non-dist ended. abscess drain in place - EXTREMITIES: 3+ pitting edema upper a nd lower extremities. Peripheral pulses 2+. - NEUROLOGIC: No focal neurological defi cits. CN II-XII grossly intact. - PSYCHIATRIC: Awake, Alert and oriented . Appropriate mood and affect. Lacks insight - LYMPH: No cervical lymphadenopathy. Objective Data Vital Signs Vital Signs: Vital Signs - 24 hr 02/23/24 14:00 02/23/24 17:10 02/23/24 19:17 Temperature 36.4 C 36.0 C L Pulse Rate 62 67 Respiratory Rate 20 18 Blood Pressure 153/38 H 146/42 H 151/36 H Pulse Oximetry 90 99 Oxygen Delivery Fraction of Inspired Oxygen 02/23/24 20:30 02/24/24 03:26 02/24/24 08:24 Temperature 36.4 C Pulse Rate 80 70 Respiratory Rate 18 Blood Pressure 165/41 H 148/42 H Pulse Oximetry 98 98 Oxygen Delivery Room Air Fraction of Inspired Oxygen 02/24/24 08:28 02/24/24 09:00 02/24/24 08:00 Temperature Pulse Rate 70 Respiratory Rate Blood Pressure Pulse Oximetry 98 Oxygen Delivery Room Air Room Air Fraction of Inspired Oxygen 21 Intake/Output Intake/Output: Intake & Output 02/21/24 02/22/24 02/23/24 02/24/24 23:59 23:59 23:59 23:59 Intake Total 2985 1070 50 120 Output Total 1740 1800 1190 830 Balance 1245 -730 -1140 -710 Meds/Results Medications: Active Medications Generic Name Dose Route Start Last Admin Trade Name Freq PRN Reason Stop Dose Admin Acetaminophen 650 mg 02/18/24 12:38 Acetaminophen 325 Mg Tablet PO Q4H PRN Mild Pain (1-3) or Fever Allopurinol 300 mg 02/19/24 09:00 02/24/24 08:28 Allopurinol 300 Mg Tablet PO 300 mg DAILY JENNA Administration Hydralazine HCl 50 mg 02/23/24 17:00 02/24/24 08:28 Hydralazine Hcl 50 Mg Tablet PO 50 mg TID JENNA Administration Hydrochlorothiazide 12.5 mg 02/19/24 09:00 02/24/24 08:28 Hydrochlorothiazide 12.5 Mg Capsule PO 12.5 mg QAM JENNA Administration Levofloxacin 750 mg 02/23/24 21:00 02/23/24 20:27 Levofloxacin 750 Mg Tablet PO 750 mg Q48H JENNA Administration Metoprolol Succinate 50 mg 02/19/24 09:00 02/24/24 08:28 Metoprolol Succinate Ext Rel 50 Mg Tabcr PO 50 mg DAILY JENNA Administration Valsartan 80 mg 02/19/24 09:00 02/24/24 08:28 Valsartan 80 Mg Tablet PO 80 mg QAM JENNA Administration Radiology Results: ITS Impressions Chest X-Ray 02/17/24 18:53 IMPRESSION: No acute cardiopulmonary process. Chest/Abdomen/Pelvis CT 02/17/24 21:32 IMPRESSION: Mild initial edema. Mild esophagitis/gastritis. Large right psoas abscess, measuring up to 19.7 cm, which may extend from the inferior pole the right kidney. A 3.4 cm left perirenal collection, a suspected abscess, is also present. Head CT 02/18/24 05:35 Impression: No significant abnormality seen. Catheter Placement CT 02/18/24 15:18 IMPRESSION: 1. Successful CT-guided right retroperitoneal abscess drainage. 2. 10 mL opaque, light green fluid was sent for aerobic and anaerobic cultures. Brain MRI 02/20/24 12:12 IMPRESSION: 1. Moderate nonspecific cerebral white matter disease, which likely represents chronic small vessel ischemic disease. Abdomen/Pelvis CT 02/23/24 12:31 IMPRESSION: 1. Small pericardial effusion. 2. Small pleural effusions. 3. Percutaneous drain in right psoas muscle. Right psoas muscle remains larger than the left suggesting inflammation, but no definite significant residual drainable fluid is identified. 4. 2.2 x 0.5 cm right perinephric abscess. 5. 2.2 x 1.2 cm left perinephric abscess. Labs Labs: Laboratory Results - last 24 hr 02/24/24 05:16 PTH Intact 34.5
--- NOTE | 2024-02-24 14:54 | PM.PNGS ---
Progress Note: A&P Assessment and Plan (1) Psoas abscess: Code(s): K68.12 - Psoas muscle abscess Status: Acute Assessment and Plan: This is greatly improved. Source of this abscess is not clear although cultures showing E coli in both the abscess and the urine makes it suspicious for source. Appreciate urology following. I am fine with removing the pigtail catheter tomorrow as suggested by Urology. Will check her labs in the morning and if no evidence of worsened condition, remove pigtail catheter tomorrow. (2) UTI (urinary tract infection): Qualifiers: Hematuria presence: without hematuria Urinary tract infection type: acute cystitis Qualified Code(s): N30.00 - Acute cystitis without hematuria Code(s): N39.0 - Urinary tract infection, site not specified Status: Acute Assessment and Plan: E coli UTI. E coli UTI was noted with admission 1 year ago. Had evidence of urinary retention with bilateral hydroureter and significant urinary bladder distention. Both the E coli now and from a year ago are pansensitive. The psoas abscess E coli is likewise mendiola sensitive. (3) Urine retention: Code(s): R33.9 - Retention of urine, unspecified Status: Chronic Assessment and Plan: Rodríguez removal is concerning for recurrent urinary tract infection for reasons noted above. (4) Paroxysmal A-fib: Code(s): I48.0 - Paroxysmal atrial fibrillation Status: Chronic Assessment and Plan: Has been in sinus rhythm this admission (5) Chronic anticoagulation: Code(s): Z79.01 - emt intermediate (current) use of anticoagulants Status: Chronic Assessment and Plan: Okay to restart Xarelto from my perspective. (6) Confusion: Code(s): R41.0 - Disorientation, unspecified Status: Acute Assessment and Plan: Seems to be improving. Probably has some baseline memory impairment. Subjective Subjective Date/Time Seen: 02/24/24 14:54 Patient reports: no new complaints, feels better, tolerating a regular diet (On a regular diet but oral intake is marginal) and afebrile Interval history: Patient pretty awake and answers questions. She feels she is more lucid today but notes that since admission until now she was ?out of it. She has no recollection of this admission until today. Review of Systems Review of Systems: ROS unobtainable: Yes unobtainable due to mental status Exam Const: General: comfortable, alert, awake and underweight; No acute distress GI: Inspection: non-distended and other (Pigtail catheter has gamboa liquid content. 30 cc out today since MN) GI Palp: Yes Soft to palpation, Yes Tenderness to palpation present (GI) (Drain site), No Guarding due to palpation present (GI), No Rigid due to palpation, No Hernia present and No Palpable mass present Objective Data Vital Signs Vital Signs: Vital Signs - 24 hr 02/23/24 17:10 02/23/24 19:17 02/23/24 20:30 Temperature 36.0 C L Pulse Rate 67 Respiratory Rate 18 Blood Pressure 146/42 H 151/36 H Pulse Oximetry 99 Oxygen Delivery Room Air Fraction of Inspired Oxygen 02/24/24 03:26 02/24/24 08:24 02/24/24 08:28 Temperature 36.4 C Pulse Rate 80 70 70 Respiratory Rate 18 Blood Pressure 165/41 H 148/42 H Pulse Oximetry 98 98 Oxygen Delivery Fraction of Inspired Oxygen 02/24/24 09:00 02/24/24 08:00 02/24/24 12:30 Temperature Pulse Rate Respiratory Rate Blood Pressure 132/40 L Pulse Oximetry 98 Oxygen Delivery Room Air Room Air Fraction of Inspired Oxygen 21 Intake/Output Intake/Output: Intake & Output 02/21/24 02/22/24 02/23/24 02/24/24 23:59 23:59 23:59 23:59 Intake Total 2985 1070 50 120 Output Total 1740 1800 1190 830 Balance 1245 -730 -1140 -710 Meds/Results Medications: Active Medications Generic Name Dose Route Start Last Admin Trade Name Freq PRN Reason Stop Dose Admin Acetaminophen 650 mg 02/18/24 12:38 Acetaminophen 325 Mg Tablet PO Q4H PRN Mild Pain (1-3) or Fever Allopurinol 300 mg 02/19/24 09:00 02/24/24 08:28 Allopurinol 300 Mg Tablet PO 300 mg DAILY JENNA Administration Hydralazine HCl 50 mg 02/23/24 17:00 02/24/24 14:07 Hydralazine Hcl 50 Mg Tablet PO Not Given TID JENNA Hydrochlorothiazide 12.5 mg 02/19/24 09:00 02/24/24 08:28 Hydrochlorothiazide 12.5 Mg Capsule PO 12.5 mg QAM JENNA Administration Levofloxacin 750 mg 02/23/24 21:00 02/23/24 20:27 Levofloxacin 750 Mg Tablet PO 750 mg Q48H JENNA Administration Metoprolol Succinate 50 mg 02/19/24 09:00 02/24/24 08:28 Metoprolol Succinate Ext Rel 50 Mg Tabcr PO 50 mg DAILY JENNA Administration Valsartan 80 mg 02/19/24 09:00 02/24/24 08:28 Valsartan 80 Mg Tablet PO 80 mg QAM JENNA Administration Radiology Results: ITS Impressions Chest X-Ray 02/17/24 18:53 IMPRESSION: No acute cardiopulmonary process. Chest/Abdomen/Pelvis CT 02/17/24 21:32 IMPRESSION: Mild initial edema. Mild esophagitis/gastritis. Large right psoas abscess, measuring up to 19.7 cm, which may extend from the inferior pole the right kidney. A 3.4 cm left perirenal collection, a suspected abscess, is also present. Head CT 02/18/24 05:35 Impression: No significant abnormality seen. Catheter Placement CT 02/18/24 15:18 IMPRESSION: 1. Successful CT-guided right retroperitoneal abscess drainage. 2. 10 mL opaque, light green fluid was sent for aerobic and anaerobic cultures. Brain MRI 02/20/24 12:12 IMPRESSION: 1. Moderate nonspecific cerebral white matter disease, which likely represents chronic small vessel ischemic disease. Abdomen/Pelvis CT 02/23/24 12:31 IMPRESSION: 1. Small pericardial effusion. 2. Small pleural effusions. 3. Percutaneous drain in right psoas muscle. Right psoas muscle remains larger than the left suggesting inflammation, but no definite significant residual drainable fluid is identified. 4. 2.2 x 0.5 cm right perinephric abscess. 5. 2.2 x 1.2 cm left perinephric abscess. Labs Labs: Laboratory Results - last 24 hr 02/24/24 05:16 PTH Intact 34.5 Imaging Attestation: I personally reviewed and interpreted this imaging study as follows: (CT scan abdomen and pelvis from yesterday.) My impression: Right psoas abscess is gone. Agree psoas muscle thickened likely from recent inflammation. The perinephric collection appears to be in significant on both the right and the left side. Do not see anything left to drain. Radiologist's impression:
[2024-02-25] VITALS (8 sets, daily range): BP systolic 130–160; BP diastolic 41–57; PULSE 75–114; RESP 14–19; TEMP 36.4–36.6; O2SAT 96–100
[2024-02-25 04:41] LABS: Basophils Absolute Auto 0.1 K/mm3 (0.0-0.1); Basophils Percent Auto 0.5 % (0.2-1.2); Eosinophils Absolute Auto 0.4 K/mm3 (0-0.3); Eosinophils Percent Auto 2.7 % (0-4.4); Hematocrit 27.6 % (37.0-47.0); Hemoglobin 8.9 g/dL (12.0-15.0); Immature Granulocyte Absolute 0.19 K/mm3 (0.00-0.031); Immature Granulocyte Percent A 1.4 % (0-0.5); Lymphocytes Absolute Auto 2.18 K/mm3 (0.9-3.2); Lymphocytes Percent Auto 16.6 % (18.3-44.2); Mean Corpuscular HGB Conc 32.2 g/dl (32-36); Mean Corpuscular Volume 83.6 fl (80-100); Mean Platelet Volume 10.1 fl (7.4-10.4); Monocytes Absolute Auto 1.2 K/mm3 (0.1-0.6); Monocytes Percent Auto 9.1 % (2.6-8.5); Neutrophils Absolute Auto 9.2 K/mm3 (1.3-6.7); Neutrophils Percent Auto 69.7 % (45.5-73.1); Platelet Count Result 477 k/mm3 (150-375); Red Cell Distribution Width 16.8 % (11.5-14.5); White Blood Count 13.2 K/mm3 (4.5-10.0)
[2024-02-25 04:53] LABS: Anion Gap 5 mmol/L (4-12); Blood Urea Nitrogen 25 mg/dL (7-17); Calcium 11.2 mg/dL (8.4-10.2); Carbon Dioxide 25 mmol/L (22-30); Chloride 104 mmol/L (98-107); Estimated CRCL calculation 32 ml/min; Estimated Glomerular Filt Rate 53; Glucose 118 mg/dL (65-110); Magnesium 1.5 mg/dL (1.6-2.3); Sodium 134 mmol/L (137-145)
[2024-02-25] MEDS: POTASSIUM CHLORIDE 20 MEQ ER TABLET 40 MEQ PO ×2 (08:33→15:02)
[2024-02-25] MEDS: MAGNESIUM OXIDE 400 MG TABLET PO (08:34)
[2024-02-25] MEDS: hydrALAZINE HCL 50 MG TABLET PO ×3 (08:34→17:04)
[2024-02-25] MEDS: METOPROLOL SUCCINATE EXT REL 50 MG TABCR PO (08:34)
[2024-02-25] MEDS: hydroCHLOROthiazide 12.5 MG CAPSULE PO (08:34)
[2024-02-25] MEDS: allopurinoL 300 MG TABLET PO (08:34)
[2024-02-25] MEDS: VALSARTAN 80 MG TABLET PO (08:34)
--- NOTE | 2024-02-25 09:15 | PM.PNGS ---
Progress Note: A&P Assessment and Plan (1) Psoas abscess: Code(s): K68.12 - Psoas muscle abscess Status: Acute Assessment and Plan: Abscess adequately drained s/p percutaneous drainage with nearly no output coming from the drain now. WBC continues to trend down. Pigtail drain removed today. Source of this abscess is not entirely clear but suspicious for source given culture results. (2) UTI (urinary tract infection): Qualifiers: Hematuria presence: without hematuria Urinary tract infection type: acute cystitis Qualified Code(s): N30.00 - Acute cystitis without hematuria Code(s): N39.0 - Urinary tract infection, site not specified Status: Acute Assessment and Plan: E coli UTI being treated appropriately with antibiotics. She is now on oral levofloxacin. Urology following. (3) Urine retention: Code(s): R33.9 - Retention of urine, unspecified Status: Chronic Assessment and Plan: History of urinary retention with recurrent UTIs. Still with Rodríguez catheter in place and Urology possibly planning voiding trial. 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 (6) Confusion: Code(s): R41.0 - Disorientation, unspecified Status: Acute Assessment and Plan: Overall improved as her infection has improved. Plan I have discussed the patient's case and plan of care with Dr. Hamm. Subjective Subjective Date/Time Seen: 02/25/24 09:15 Patient reports: afebrile Interval history: Patient seen today and seems a little more confused today but does answer questions appropriately. Much more alert than a few days ago. She denies any pain or specific complaints at the time of my exam. WBC down to 13k today. Review of Systems Review of Systems: All systems reviewed & are unremarkable except as noted in HPI and below Exam Const: General: comfortable; No acute distress Orientation/consciousness: confusion GI: Inspection: non-distended GI Palp: Yes Soft to palpation, No Tenderness to palpation present (GI), No Guarding due to palpation present (GI) and No Rebound tenderness present Auscultation: normal bowel sounds Other: Right posterior perc drain with no output this morning and only 10 cc out overnight and 15 cc out yesterday during day shift. Dressing and suture removed. Pigtail catheter removed at the bedside and gauze dressing applied. Extrem: General: edema bilateral (upper extremities, equal bilaterally, 2-3+ pitting) Objective Data Vital Signs Vital Signs: Vital Signs - 24 hr 02/24/24 12:30 02/24/24 14:00 02/24/24 17:14 Temperature 97.8 F Pulse Rate 75 Respiratory Rate 20 Blood Pressure 132/40 L 132/36 L 142/46 H Pulse Oximetry 99 Oxygen Delivery 02/24/24 20:00 02/24/24 22:00 02/25/24 05:14 Temperature 97.8 F 97.8 F Pulse Rate 60 75 Respiratory Rate 16 14 Blood Pressure 113/51 L 142/57 H Pulse Oximetry 94 96 Oxygen Delivery Room Air 02/25/24 08:33 02/25/24 08:34 Temperature Pulse Rate 85 85 Respiratory Rate Blood Pressure 154/50 H Pulse Oximetry 98 Oxygen Delivery Intake/Output Intake/Output: Intake & Output 02/22/24 02/23/24 02/24/24 02/25/24 23:59 23:59 23:59 23:59 Intake Total 1070 50 1030 540 Output Total 1800 1190 1245 1510 [facility]730 -1140 -215 -970 Meds/Results Medications: Active Medications Generic Name Dose Route Start Last Admin Trade Name Freq PRN Reason Stop Dose Admin Acetaminophen 650 mg 02/18/24 12:38 Acetaminophen 325 Mg Tablet PO Q4H PRN Mild Pain (1-3) or Fever Allopurinol 300 mg 02/19/24 09:00 02/25/24 08:34 Allopurinol 300 Mg Tablet PO 300 mg DAILY JENNA Administration Hydralazine HCl 50 mg 02/23/24 17:00 02/25/24 08:34 Hydralazine Hcl 50 Mg Tablet PO 50 mg TID JENNA Administration Hydrochlorothiazide 12.5 mg 02/19/24 09:00 02/25/24 08:34 Hydrochlorothiazide 12.5 Mg Capsule PO 12.5 mg QAM JENNA Administration Levofloxacin 750 mg 02/23/24 21:00 02/23/24 20:27 Levofloxacin 750 Mg Tablet PO 750 mg Q48H JENNA Administration Magnesium Oxide 400 mg 02/25/24 09:00 02/25/24 08:34 Magnesium Oxide 400 Mg Tablet PO 400 mg DAILY JENNA Administration Metoprolol Succinate 50 mg 02/19/24 09:00 02/25/24 08:34 Metoprolol Succinate Ext Rel 50 Mg Tabcr PO 50 mg DAILY JENNA Administration Rivaroxaban 15 mg 02/25/24 17:00 Rivaroxaban 15 Mg Tablet PO DAILY@1700 [facility] Valsartan 80 mg 02/19/24 09:00 02/25/24 08:34 Valsartan 80 Mg Tablet PO 80 mg QAM JENNA Administration Radiology Results: ITS Impressions Chest X-Ray 02/17/24 18:53 IMPRESSION: No acute cardiopulmonary process. Chest/Abdomen/Pelvis CT 02/17/24 21:32 IMPRESSION: Mild initial edema. Mild esophagitis/gastritis. Large right psoas abscess, measuring up to 19.7 cm, which may extend from the inferior pole the right kidney. A 3.4 cm left perirenal collection, a suspected abscess, is also present. Head CT 02/18/24 05:35 Impression: No significant abnormality seen. Catheter Placement CT 02/18/24 15:18 IMPRESSION: 1. Successful CT-guided right retroperitoneal abscess drainage. 2. 10 mL opaque, light green fluid was sent for aerobic and anaerobic cultures. Brain MRI 02/20/24 12:12 IMPRESSION: 1. Moderate nonspecific cerebral white matter disease, which likely represents chronic small vessel ischemic disease. Abdomen/Pelvis CT 02/23/24 12:31 IMPRESSION: 1. Small pericardial effusion. 2. Small pleural effusions. 3. Percutaneous drain in right psoas muscle. Right psoas muscle remains larger than the left suggesting inflammation, but no definite significant residual drainable fluid is identified. 4. 2.2 x 0.5 cm right perinephric abscess. 5. 2.2 x 1.2 cm left perinephric abscess. Labs Labs: Laboratory Results - last 24 hr 02/25/24 04:26 WBC 13.2 H RBC 3.30 L Hgb 8.9 L Hct 27.6 L MCV 83.6 MCH 27.0 MCHC 32.2 RDW 16.8 H Plt Count 477 H MPV 10.1 Immature Gran % (Auto) 1.4 H Neut % (Auto) 69.7 Lymph % (Auto) 16.6 L [place] % (Auto) 9.1 H Eos % (Auto) 2.7 Baso % (Auto) 0.5 Lymph # (Auto) 2.18 [place] # (Auto) 1.2 H Eos # (Auto) 0.4 H Baso # (Auto) 0.1 Abs Immat Gran (auto) 0.19 H Absolute Neuts (auto) 9.2 H Absolute Nucleated RBC 0.000 Nucleated RBC % 0.0 Sodium 134 L Potassium 3.0 L Chloride 104 Carbon Dioxide 25 Anion Gap 5 BUN 25 H Creatinine 1.00 Estim Creat Clear Calc 32 Estimated GFR 53 L Glucose 118 H Calcium 11.2 H Magnesium 1.5 L
--- NOTE | 2024-02-25 09:30 | P.PNUR_ITS ---
Progress Note: A&P Assessment and Plan (1) Psoas abscess: Code(s): K68.12 - Psoas muscle abscess Status: Acute Assessment and Plan: Noted to have markedly enlarged right psoas abscess Underwent CT-guided percutaneous abscess drainage on 02/18/2024. Abscess cultures with growth of E coli, also growing E coli in urine Continue Levaquin based on cultures. Recommend a 3 week course of p.o. antibiotics Repeat CT abdomen/pelvis completed on 02/22 shows no significant residual drainable fluid of the right psoas Pigtail drain removed today by General surgery WBC 13.2 today. Continue to monitor. Hopeful discharge in next couple days if continued improvement. We will plan for close outpatient follow-up following discharge (2) Perinephric abscess: Code(s): N15.1 - Renal and perinephric abscess Status: Acute Assessment and Plan: Repeat CT demonstrates bilateral small perinephric abscesses Will continue to closely observe and plan for repeat CT as an outpatient in the next 2 weeks (3) UTI (urinary tract infection): Qualifiers: Hematuria presence: without hematuria Urinary tract infection type: acute cystitis Qualified Code(s): N30.00 - Acute cystitis without hematuria Code(s): N39.0 - Urinary tract infection, site not specified Status: Acute Assessment and Plan: Urine culture with growth of E coli. Continue Levaquin based on sensitivities. Blood cultures negative (4) Urine retention: Code(s): R33.9 - Retention of urine, unspecified Status: Chronic Assessment and Plan: Noted to have history of urinary retention during previous hospital admission 02/2023. CT at that time showed a distended urinary bladder with tiny foci of gas which was felt to be due to acute UTI (E. coli) for which she was treated appropriately. She was voiding well during that time and had a PVR of 10 cc. Rodríguez catheter placed on 02/17. Will plan for removal today as patient is more alert and ambulating. Check PVR after 1st void Subjective Subjective Date/Time Seen: 02/25/24 09:00 Interval history: Gely is feeling improved today. She has. Improved she is tolerating. She denies nausea vomiting chills her pigtail drain was removed today by General Surgery without difficulty. Rodríguez catheter continues to drain clear yellow urine. Review of Systems Review of Systems: All systems reviewed & are unremarkable except as noted in HPI and below Exam Narrative: General: Awake, alert, comfortable, no acute distress HEENT: Normocephalic, atraumatic, sclerae anicteric Respiratory: Normal respiratory effort, no accessory muscle use Abdomen: Nondistended, soft, nontender : Rodríguez catheter draining clear yellow urine Skin: Normal coloration, warm and dry Neurologic: No focal neuro deficits noted Psychiatric: Appropriate mood and affect, judgment and insight intact Objective Data Vital Signs Vital Signs: Vital Signs - 24 hr 02/24/24 14:00 02/24/24 17:14 02/24/24 20:00 Temperature 97.8 F Pulse Rate 75 Respiratory Rate 20 Blood Pressure 132/36 L 142/46 H Pulse Oximetry 99 Oxygen Delivery Room Air 02/24/24 22:00 02/25/24 05:14 02/25/24 08:33 Temperature 97.8 F 97.8 F Pulse Rate 60 75 85 Respiratory Rate 16 14 Blood Pressure 113/51 L 142/57 H 154/50 H Pulse Oximetry 94 96 98 Oxygen Delivery 02/25/24 08:34 02/25/24 08:00 02/25/24 12:55 Temperature Pulse Rate 85 Respiratory Rate Blood Pressure 130/42 L Pulse Oximetry Oxygen Delivery Room Air Intake/Output Intake/Output: Intake & Output 02/22/24 02/23/24 02/24/24 02/25/24 23:59 23:59 23:59 23:59 Intake Total 1070 50 1030 540 Output Total 1800 1190 1245 1510 [facility] [place] -[phone] Meds/Results Medications: Active Medications Generic Name Dose Route Start Last Admin Trade Name Freq PRN Reason Stop Dose Admin Acetaminophen 650 mg 02/18/24 12:38 Acetaminophen 325 Mg Tablet PO Q4H PRN Mild Pain (1-3) or Fever Allopurinol 300 mg 02/19/24 09:00 02/25/24 08:34 Allopurinol 300 Mg Tablet PO 300 mg DAILY JENNA Administration Hydralazine HCl 50 mg 02/23/24 17:00 02/25/24 12:59 Hydralazine Hcl 50 Mg Tablet PO 50 mg TID JENNA Administration Hydrochlorothiazide 12.5 mg 02/19/24 09:00 02/25/24 08:34 Hydrochlorothiazide 12.5 Mg Capsule PO 12.5 mg QAM JENNA Administration Levofloxacin 750 mg 02/23/24 21:00 02/23/24 20:27 Levofloxacin 750 Mg Tablet PO 750 mg Q48H JENNA Administration Magnesium Oxide 400 mg 02/25/24 09:00 02/25/24 08:34 Magnesium Oxide 400 Mg Tablet PO 400 mg DAILY JENNA Administration Metoprolol Succinate 50 mg 02/19/24 09:00 02/25/24 08:34 Metoprolol Succinate Ext Rel 50 Mg Tabcr PO 50 mg DAILY JENNA Administration Potassium Chloride 40 meq 02/25/24 15:00 Potassium Chloride 20 Meq Er Tablet PO 02/25/24 15:01 ONCE ONE Rivaroxaban 15 mg 02/25/24 17:00 Rivaroxaban 15 Mg Tablet PO DAILY@1700 JENNA Valsartan 80 mg 02/19/24 09:00 02/25/24 08:34 Valsartan 80 Mg Tablet PO 80 mg QAM JENNA Administration Radiology Results: ITS Impressions Chest X-Ray 02/17/24 18:53 IMPRESSION: No acute cardiopulmonary process. Chest/Abdomen/Pelvis CT 02/17/24 21:32 IMPRESSION: Mild initial edema. Mild esophagitis/gastritis. Large right psoas abscess, measuring up to 19.7 cm, which may extend from the inferior pole the right kidney. A 3.4 cm left perirenal collection, a suspected abscess, is also present. Head CT 02/18/24 05:35 Impression: No significant abnormality seen. Catheter Placement CT 02/18/24 15:18 IMPRESSION: 1. Successful CT-guided right retroperitoneal abscess drainage. 2. 10 mL opaque, light green fluid was sent for aerobic and anaerobic cultures. Brain MRI 02/20/24 12:12 IMPRESSION: 1. Moderate nonspecific cerebral white matter disease, which likely represents chronic small vessel ischemic disease. Abdomen/Pelvis CT 02/23/24 12:31 IMPRESSION: 1. Small pericardial effusion. 2. Small pleural effusions. 3. Percutaneous drain in right psoas muscle. Right psoas muscle remains larger than the left suggesting inflammation, but no definite significant residual drainable fluid is identified. 4. 2.2 x 0.5 cm right perinephric abscess. 5. 2.2 x 1.2 cm left perinephric abscess. Labs Labs: Laboratory Results - last 24 hr 02/25/24 04:26 WBC 13.2 H RBC 3.30 L Hgb 8.9 L Hct 27.6 L MCV 83.6 MCH 27.0 MCHC 32.2 RDW 16.8 H Plt Count 477 H MPV 10.1 Immature Gran % (Auto) 1.4 H Neut % (Auto) 69.7 Lymph % (Auto) 16.6 L [place] % (Auto) 9.1 H Eos % (Auto) 2.7 Baso % (Auto) 0.5 Lymph # (Auto) 2.18 [place] # (Auto) 1.2 H Eos # (Auto) 0.4 H Baso # (Auto) 0.1 Abs Immat Gran (auto) 0.19 H Absolute Neuts (auto) 9.2 H Absolute Nucleated RBC 0.000 Nucleated RBC % 0.0 Sodium 134 L Potassium 3.0 L Chloride 104 Carbon Dioxide 25 Anion Gap 5 BUN 25 H Creatinine 1.00 Estim Creat Clear Calc 32 Estimated GFR 53 L Glucose 118 H Calcium 11.2 H Magnesium 1.5 L
--- NOTE | 2024-02-25 09:42 | PM.IMPN ---
Progress Note: A&P Assessment and Plan (1) Perinephric abscess: Code(s): N15.1 - Renal and perinephric abscess Status: Acute (2) Confusion: Code(s): R41.0 - Disorientation, unspecified Status: Acute (3) Sepsis with metabolic encephalopathy: Code(s): A41.9 - Sepsis, unspecified organism; R65.20 - Severe sepsis without septic shock; G93.41 - Metabolic encephalopathy Status: Acute (4) Chronic anticoagulation: Code(s): Z79.01 - senior living (current) use of anticoagulants Status: Chronic (5) Psoas abscess: Code(s): K68.12 - Psoas muscle abscess Status: Acute (6) Electrolyte imbalance: Code(s): E87.8 - Other disorders of electrolyte and fluid balance, not elsewhere classified Status: Acute Plan # right psoas abscess with E coli -status post IR drainage 02/17 -antibiotics: P.o. Levaquin 02/22- based on cultures (for E coli abscess and bacteriuria) - down trending leukocytosis 15k ->13k -appreciate general surgery consult: removing pigtail catheter today # bilateral perinephric abscess -found on CT scan of abdomen -urology recommends [address] follow-up # electrolyte imbalances - hypokalemia: Potassium 3.0 giving KCL 40 mEq x2 - hypomagnesemia: Magnesium 1.5, Starting Mag oxide 400 mg daily - repleting electrolytes # chronic conditions -essential hypertension: Valsartan, metoprolol, hydrochlorothiazide, hydralazine t.i.d. -gout: Allopurinol -osteoporosis: Alendronate -supplements: B complex, vitamin-C -paroxysmal atrial fibrillation: Anticoagulation Xarelto, on metoprolol for rate control - anemia: Hemoglobin stable at 8.9. likely chronic anemia Diet: Regular diet dietary supplement DVT prophylaxis: resuming xarelto Code status: DNR Disposition: Pending PT, likely discharge soon Time Spent With Patient Time: 35 minutes Subjective Date/time seen: 02/25/24 09:42 Interval history: patient seen and examined. She is doing well no new complaints. Leukocytosis improving. Plan to remove pigtail catheter today. Replacing electrolytes magnesium potassium today. We will continue trending labs. Patient denies fever, chills, nausea, vomiting, diarrhea, chest pain, shortness of breath. Review of Systems Review of Systems: 10 point ROS complete, negative other than what is specified in HPI. Exam Narrative: - GENERAL: Pleasant woman in no acute distress. Well-nourished. - EYES: EOMI. Anicteric. - HENT: Moist mucous membranes. - LUNGS: Clear to auscultation bilaterally, no wheezing, rhonchi, or rales. - CARDIOVASCULAR: Regular rate and rhythm. No murmur. No JVD. - ABDOMEN: Soft, non-tender and non-distended. pigtail catheter present - EXTREMITIES: No edema. Peripheral pulses 2+. Non-tender. - NEUROLOGIC: No focal neurological deficits. CN II-XII grossly intact. - PSYCHIATRIC: Awake, Alert and oriented x 3. Appropriate mood and affect. - SKIN: No rashes or lesions. Warm. Objective Data Vital Signs Vital Signs: Vital Signs - 24 hr 02/24/24 12:30 02/24/24 14:00 02/24/24 17:14 Temperature 36.6 C Pulse Rate 75 Respiratory Rate 20 Blood Pressure 132/40 L 132/36 L 142/46 H Pulse Oximetry 99 Oxygen Delivery 02/24/24 20:00 02/24/24 22:00 02/25/24 05:14 Temperature 36.6 C 36.6 C Pulse Rate 60 75 Respiratory Rate 16 14 Blood Pressure 113/51 L 142/57 H Pulse Oximetry 94 96 Oxygen Delivery Room Air 02/25/24 08:33 02/25/24 08:34 Temperature Pulse Rate 85 85 Respiratory Rate Blood Pressure 154/50 H Pulse Oximetry 98 Oxygen Delivery Intake/Output Intake/Output: Intake & Output 02/22/24 02/23/24 02/24/24 02/25/24 23:59 23:59 23:59 23:59 Intake Total 1070 50 1030 540 Output Total 1800 1190 5515 1080 [facility]730 [phone] Meds/Results Medications: Active Medications Generic Name Dose Route Start Last Admin Trade Name Freq PRN Reason Stop Dose Admin Acetaminophen 650 mg 02/18/24 12:38 Acetaminophen 325 Mg Tablet PO Q4H PRN Mild Pain (1-3) or Fever Allopurinol 300 mg 02/19/24 09:00 02/25/24 08:34 Allopurinol 300 Mg Tablet PO 300 mg DAILY JENNA Administration Hydralazine HCl 50 mg 02/23/24 17:00 02/25/24 08:34 Hydralazine Hcl 50 Mg Tablet PO 50 mg TID JENNA Administration Hydrochlorothiazide 12.5 mg 02/19/24 09:00 02/25/24 08:34 Hydrochlorothiazide 12.5 Mg Capsule PO 12.5 mg QAM JENNA Administration Levofloxacin 750 mg 02/23/24 21:00 02/23/24 20:27 Levofloxacin 750 Mg Tablet PO 750 mg Q48H JENNA Administration Magnesium Oxide 400 mg 02/25/24 09:00 02/25/24 08:34 Magnesium Oxide 400 Mg Tablet PO 400 mg DAILY JENNA Administration Metoprolol Succinate 50 mg 02/19/24 09:00 02/25/24 08:34 Metoprolol Succinate Ext Rel 50 Mg Tabcr PO 50 mg DAILY JENNA Administration Rivaroxaban 15 mg 02/25/24 17:00 Rivaroxaban 15 Mg Tablet PO DAILY@1700 JENNA Valsartan 80 mg 02/19/24 09:00 02/25/24 08:34 Valsartan 80 Mg Tablet PO 80 mg QAM JENNA Administration Radiology Results: ITS Impressions Chest X-Ray 02/17/24 18:53 IMPRESSION: No acute cardiopulmonary process. Chest/Abdomen/Pelvis CT 02/17/24 21:32 IMPRESSION: Mild initial edema. Mild esophagitis/gastritis. Large right psoas abscess, measuring up to 19.7 cm, which may extend from the inferior pole the right kidney. A 3.4 cm left perirenal collection, a suspected abscess, is also present. Head CT 02/18/24 05:35 Impression: No significant abnormality seen. Catheter Placement CT 02/18/24 15:18 IMPRESSION: 1. Successful CT-guided right retroperitoneal abscess drainage. 2. 10 mL opaque, light green fluid was sent for aerobic and anaerobic cultures. Brain MRI 02/20/24 12:12 IMPRESSION: 1. Moderate nonspecific cerebral white matter disease, which likely represents chronic small vessel ischemic disease. Abdomen/Pelvis CT 02/23/24 12:31 IMPRESSION: 1. Small pericardial effusion. 2. Small pleural effusions. 3. Percutaneous drain in right psoas muscle. Right psoas muscle remains larger than the left suggesting inflammation, but no definite significant residual drainable fluid is identified. 4. 2.2 x 0.5 cm right perinephric abscess. 5. 2.2 x 1.2 cm left perinephric abscess. Labs Labs: Laboratory Results - last 24 hr 02/25/24 04:26 WBC 13.2 H RBC 3.30 L Hgb 8.9 L Hct 27.6 L MCV 83.6 MCH 27.0 MCHC 32.2 RDW 16.8 H Plt Count 477 H MPV 10.1 Immature Gran % (Auto) 1.4 H Neut % (Auto) 69.7 Lymph % (Auto) 16.6 L [place] % (Auto) 9.1 H Eos % (Auto) 2.7 Baso % (Auto) 0.5 Lymph # (Auto) 2.18 [place] # (Auto) 1.2 H Eos # (Auto) 0.4 H Baso # (Auto) 0.1 Abs Immat Gran (auto) 0.19 H Absolute Neuts (auto) 9.2 H Absolute Nucleated RBC 0.000 Nucleated RBC % 0.0 Sodium 134 L Potassium 3.0 L Chloride 104 Carbon Dioxide 25 Anion Gap 5 BUN 25 H Creatinine 1.00 Estim Creat Clear Calc 32 Estimated GFR 53 L Glucose 118 H Calcium 11.2 H Magnesium 1.5 L
[2024-02-25] MEDS: RIVAROXABAN 15 MG TABLET PO (17:04)
[2024-02-25] MEDS: levoFLOXacin 750 MG TABLET PO (20:14)
[2024-02-26 05:03] LABS: Basophils Absolute Auto 0.1 K/mm3 (0.0-0.1); Basophils Percent Auto 0.4 % (0.2-1.2); Eosinophils Absolute Auto 0.2 K/mm3 (0-0.3); Eosinophils Percent Auto 1.6 % (0-4.4); Hematocrit 25.1 % (37.0-47.0); Immature Granulocyte Absolute 0.14 K/mm3 (0.00-0.031); Immature Granulocyte Percent A 1.1 % (0-0.5); Mean Corpuscular HGB Conc 31.9 g/dl (32-36); Mean Corpuscular Hemoglobin 27.3 pg (26-34); Mean Corpuscular Volume 85.7 fl (80-100); Mean Platelet Volume 10.4 fl (7.4-10.4); Monocytes Percent Auto 8.1 % (2.6-8.5); Neutrophils Absolute Auto 9.1 K/mm3 (1.3-6.7); Neutrophils Percent Auto 72.8 % (45.5-73.1); Platelet Count Result 417 k/mm3 (150-375); Red Blood Count 2.93 M/mm3 (4.2-5.4); Red Cell Distribution Width 17.2 % (11.5-14.5); White Blood Count 12.5 K/mm3 (4.5-10.0)
[2024-02-26 05:20] VITALS: BP 152/74; PULSE 52; RESP 18; TEMP 36.8; O2SAT 99
[2024-02-26 05:20] LABS: Alanine Aminotransferase 17 U/L (6-35); Albumin Level 2.5 g/dL (3.5-5.1); Alkaline Phosphatase 88 U/L (38-126); Anion Gap 2 mmol/L (4-12); Aspartate Amino Transferase 36 U/L (14-36); Bilirubin,Total 0.4 mg/dL (0.2-1.3); Blood Urea Nitrogen 24 mg/dL (7-17); Calcium 10.8 mg/dL (8.4-10.2); Carbon Dioxide 26 mmol/L (22-30); Chloride 106 mmol/L (98-107); Estimated CRCL calculation 32 ml/min; Estimated Glomerular Filt Rate 53; Glucose 117 mg/dL (65-110); Magnesium 1.6 mg/dL (1.6-2.3); Potassium 4.4 mmol/L (3.4-5.0); Sodium 134 mmol/L (137-145)
[2024-02-26 05:43] VITALS: BP 127/36; PULSE 63; RESP 18; TEMP 36.3; O2SAT 100
[2024-02-26 09:19] VITALS: PULSE 66
[2024-02-26] MEDS: VALSARTAN 80 MG TABLET PO (09:19)
[2024-02-26] MEDS: hydroCHLOROthiazide 12.5 MG CAPSULE PO (09:19)
[2024-02-26] MEDS: MAGNESIUM OXIDE 400 MG TABLET PO (09:19)
[2024-02-26] MEDS: METOPROLOL SUCCINATE EXT REL 50 MG TABCR PO (09:19)
[2024-02-26] MEDS: allopurinoL 300 MG TABLET PO (09:19)
[2024-02-26] MEDS: hydrALAZINE HCL 50 MG TABLET PO ×2 (09:20→17:14)
--- NOTE | 2024-02-26 09:58 | P.PNUR_ITS ---
Progress Note: A&P Assessment and Plan (1) Psoas abscess: Code(s): K68.12 - Psoas muscle abscess Status: Acute Assessment and Plan: Noted to have markedly enlarged right psoas abscess Underwent CT-guided percutaneous abscess drainage on 02/18/2024. Abscess cultures with growth of E coli, also growing E coli in urine Repeat CT abdomen/pelvis completed on 02/22 shows no significant residual drainable fluid of the right psoas Pigtail drain removed 02/25/24 by General surgery WBC continues to improve and she remains afebrile Continue Levaquin based on cultures. Recommend she complete a 3 week course of p.o. antibiotics (2) Perinephric abscess: Code(s): N15.1 - Renal and perinephric abscess Status: Acute Assessment and Plan: Repeat CT demonstrates bilateral small perinephric abscesses Will continue to closely observe and plan for repeat CT as an outpatient in the next 2 weeks with follow-up after completion (3) UTI (urinary tract infection): Qualifiers: Hematuria presence: without hematuria Urinary tract infection type: acute cystitis Qualified Code(s): N30.00 - Acute cystitis without hematuria Code(s): N39.0 - Urinary tract infection, site not specified Status: Acute Assessment and Plan: Urine culture with growth of E coli. Continue Levaquin based on sensitivities. Blood cultures negative (4) Urine retention: Code(s): R33.9 - Retention of urine, unspecified Status: Chronic Assessment and Plan: Rodríguez catheter placed on 02/17. Rodríguez removed on 02/25/2024 but has had difficulty urinating. Required straight catheterization this morning with output of 350 cc Monitor urine output today. Check PVR after 1st void. If unable to void and PVR >400, plan for Rodríguez catheter replacement Subjective Subjective Date/Time Seen: 02/26/24 09:58 Interval history: Doing well today. Reports no concerns. Drain out yesterday. Rodríguez out yesterday. Had little urine output overnight and this morning bladder scan showed 350 cc and she was straight catheterized. WBC continues to improved to 12.5. She remains afebrile Review of Systems Review of Systems: All systems reviewed & are unremarkable except as noted in HPI and below Exam Narrative: General: Awake, alert, comfortable, no acute distress HEENT: Normocephalic, atraumatic, sclerae anicteric Respiratory: Normal respiratory effort, no accessory muscle use Abdomen: Nondistended, soft, nontender Skin: Normal coloration, warm and dry Neurologic: No focal neuro deficits noted Psychiatric: Appropriate mood and affect, judgment and insight intact Objective Data Vital Signs Vital Signs: Vital Signs - 24 hr 02/25/24 12:55 02/25/24 14:00 02/25/24 17:04 Temperature 97.6 F Pulse Rate 76 Respiratory Rate 19 Blood Pressure 130/42 L 133/41 L 152/48 H Pulse Oximetry 100 Oxygen Delivery 02/25/24 20:00 02/25/24 22:00 02/26/24 05:20 Temperature 97.5 F L 98.3 F Pulse Rate 114 H 52 L Respiratory Rate 18 18 Blood Pressure 160/50 H 152/74 H Pulse Oximetry 100 99 99 Oxygen Delivery Room Air 02/26/24 05:43 02/26/24 09:19 Temperature 97.4 F L Pulse Rate 63 66 Respiratory Rate 18 Blood Pressure 127/36 L Pulse Oximetry 100 Oxygen Delivery Intake/Output Intake/Output: Intake & Output 02/23/24 02/24/24 02/25/24 02/26/24 23:59 23:59 23:59 23:59 Intake Total 50 1030 640 Output Total 1190 1245 1510 300 [facility]1140 -[phone] Meds/Results Medications: Active Medications Generic Name Dose Route Start Last Admin Trade Name Freq PRN Reason Stop Dose Admin Acetaminophen 650 mg 02/18/24 12:38 Acetaminophen 325 Mg Tablet PO Q4H PRN Mild Pain (1-3) or Fever Allopurinol 300 mg 02/19/24 09:00 02/26/24 09:19 Allopurinol 300 Mg Tablet PO 300 mg DAILY JENNA Administration Hydralazine HCl 50 mg 02/23/24 17:00 02/26/24 09:20 Hydralazine Hcl 50 Mg Tablet PO 50 mg TID JENNA Administration Hydrochlorothiazide 12.5 mg 02/19/24 09:00 02/26/24 09:19 Hydrochlorothiazide 12.5 Mg Capsule PO 12.5 mg QAM JENNA Administration Magnesium Sulfate 4 gm in 100 mls @ 25 mls/hr 02/26/24 07:38 Magnesium Sulf 4 [id number] IVPB 02/26/24 11:37 ONCE ONE Levofloxacin 750 mg 02/23/24 21:00 02/25/24 20:14 Levofloxacin 750 Mg Tablet PO 750 mg Q48H JENNA Administration Magnesium Oxide 400 mg 02/25/24 09:00 02/26/24 09:19 Magnesium Oxide 400 Mg Tablet PO 400 mg DAILY JENNA Administration Metoprolol Succinate 50 mg 02/19/24 09:00 02/26/24 09:19 Metoprolol Succinate Ext Rel 50 Mg Tabcr PO 50 mg DAILY JENNA Administration Rivaroxaban 15 mg 02/25/24 17:00 02/25/24 17:04 Rivaroxaban 15 Mg Tablet PO 15 mg DAILY@1700 JENNA Administration Valsartan 80 mg 02/19/24 09:00 02/26/24 09:19 Valsartan 80 Mg Tablet PO 80 mg QAM JENNA Administration Radiology Results: ITS Impressions Chest X-Ray 02/17/24 18:53 IMPRESSION: No acute cardiopulmonary process. Chest/Abdomen/Pelvis CT 02/17/24 21:32 IMPRESSION: Mild initial edema. Mild esophagitis/gastritis. Large right psoas abscess, measuring up to 19.7 cm, which may extend from the inferior pole the right kidney. A 3.4 cm left perirenal collection, a suspected abscess, is also present. Head CT 02/18/24 05:35 Impression: No significant abnormality seen. Catheter Placement CT 02/18/24 15:18 IMPRESSION: 1. Successful CT-guided right retroperitoneal abscess drainage. 2. 10 mL opaque, light green fluid was sent for aerobic and anaerobic cultures. Brain MRI 02/20/24 12:12 IMPRESSION: 1. Moderate nonspecific cerebral white matter disease, which likely represents chronic small vessel ischemic disease. Abdomen/Pelvis CT 02/23/24 12:31 IMPRESSION: 1. Small pericardial effusion. 2. Small pleural effusions. 3. Percutaneous drain in right psoas muscle. Right psoas muscle remains larger than the left suggesting inflammation, but no definite significant residual drainable fluid is identified. 4. 2.2 x 0.5 cm right perinephric abscess. 5. 2.2 x 1.2 cm left perinephric abscess. Labs Labs: Laboratory Results - last 24 hr 02/26/24 04:37 WBC 12.5 H RBC 2.93 L Hgb 8.0 L Hct 25.1 L MCV 85.7 MCH 27.3 MCHC 31.9 L RDW 17.2 H Plt Count 417 H MPV 10.4 Immature Gran % (Auto) 1.1 H Neut % (Auto) 72.8 Lymph % (Auto) 16.0 L [place] % (Auto) 8.1 Eos % (Auto) 1.6 Baso % (Auto) 0.4 Lymph # (Auto) 2.00 [place] # (Auto) 1.0 H Eos # (Auto) 0.2 Baso # (Auto) 0.1 Abs Immat Gran (auto) 0.14 H Absolute Neuts (auto) 9.1 H Absolute Nucleated RBC 0.000 Nucleated RBC % 0.0 Sodium 134 L Potassium 4.4 Chloride 106 Carbon Dioxide 26 Anion Gap 2 L BUN 24 H Creatinine 1.00 Estim Creat Clear Calc 32 Estimated GFR 53 L Glucose 117 H Calcium 10.8 H Magnesium 1.6 Total Bilirubin 0.4 AST 36 ALT 17 Alkaline Phosphatase 88 Total Protein 5.0 L Albumin 2.5 L
[2024-02-26] MEDS: BUMETANIDE 1 MG TABLET PO (11:01)
[2024-02-26 12:24] VITALS: BP 137/40; PULSE 60; RESP 16; O2SAT 99
--- NOTE | 2024-02-26 13:10 | P.PNGS_ITS ---
Progress Note: A&P Assessment and Plan (1) Psoas abscess: Code(s): K68.12 - Psoas muscle abscess Status: Acute Assessment and Plan: Abscess adequately drained s/p percutaneous drainage. Pigtail drain removed ye sterday. She is afebrile and WBC continues to trend towards normal. No further surgical needs and we will sign off at this time. Please call with any questions or concerns. Recommend follow-up with Urology. 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 Will defer to Urology. 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 Defer delirium to Neurology. Plan I have discussed the patient's case and plan of care with Dr. Hamm. Subjective Subjective Date/Time Seen: 02/26/24 13:10 Interval history: Patient is alert today but seems less conversational. She will answer my questions appropriately but is disoriented to place and time. She denies any pain at this time. She has been having issues with urinary retention since her Rodríguez was removed. Exam Const: General: comfortable and no acute distress Orientation/consciousness: oriented to person and confusion GI: Inspection: non-distended GI Palp: Yes Soft to palpation, Yes Tenderness to palpation present (GI) (near the drain site), No Guarding due to palpation present (GI) and No Rebound tenderness present Auscultation: normal bowel sounds Other: Right posterior drain site with gauze dressing intact and dry. She is tender in this area. She also whimpers with palpation of her entire abdomen, but will not answer if this is painful or tender. No guarding or diffuse peritoneal signs. Objective Data Vital Signs Vital Signs: Vital Signs - 24 hr 02/25/24 14:00 02/25/24 17:04 02/25/24 20:00 Temperature 97.6 F Pulse Rate 76 Respiratory Rate 19 Blood Pressure 133/41 L 152/48 H Pulse Oximetry 100 100 Oxygen Delivery Room Air 02/25/24 22:00 02/26/24 05:20 02/26/24 05:43 Temperature 97.5 F L 98.3 F 97.4 F L Pulse Rate 114 H 52 L 63 Respiratory Rate 18 18 18 Blood Pressure 160/50 H 152/74 H 127/36 L Pulse Oximetry 99 99 100 Oxygen Delivery 02/26/24 09:19 02/26/24 09:20 02/26/24 12:24 Temperature Pulse Rate 66 60 Respiratory Rate 16 Blood Pressure 137/40 L Pulse Oximetry 99 Oxygen Delivery Room Air Intake/Output Intake/Output: Intake & Output 02/23/24 02/24/24 02/25/24 02/26/24 23:59 23:59 23:59 23:59 Intake Total 50 1030 640 790 Output Total 1190 1245 1510 300 Balance -1140 -215 -870 490 Meds/Results Medications: Active Medications Generic Name Dose Route Start Last Admin Trade Name Freq PRN Reason Stop Dose Admin Acetaminophen 650 mg 02/18/24 12:38 Acetaminophen 325 Mg Tablet PO Q4H PRN Mild Pain (1-3) or Fever Allopurinol 300 mg 02/19/24 09:00 02/26/24 09:19 Allopurinol 300 Mg Tablet PO 300 mg DAILY JENNA Administration Hydralazine HCl 50 mg 02/23/24 17:00 02/26/24 12:26 Hydralazine Hcl 50 Mg Tablet PO Not Given TID JENNA Hydrochlorothiazide 12.5 mg 02/19/24 09:00 02/26/24 09:19 Hydrochlorothiazide 12.5 Mg Capsule PO 12.5 mg QAM JENNA Administration Levofloxacin 750 mg 02/23/24 21:00 02/25/24 20:14 Levofloxacin 750 Mg Tablet PO 750 mg Q48H JENNA Administration Magnesium Oxide 400 mg 02/25/24 09:00 02/26/24 09:19 Magnesium Oxide 400 Mg Tablet PO 400 mg DAILY JENNA Administration Metoprolol Succinate 50 mg 02/19/24 09:00 02/26/24 09:19 Metoprolol Succinate Ext Rel 50 Mg Tabcr PO 50 mg DAILY JENNA Administration Rivaroxaban 15 mg 02/25/24 17:00 02/25/24 17:04 Rivaroxaban 15 Mg Tablet PO 15 mg DAILY@1700 JENNA Administration Valsartan 80 mg 02/19/24 09:00 02/26/24 09:19 Valsartan 80 Mg Tablet PO 80 mg QAM JENNA Administration Radiology Results: ITS Impressions Chest X-Ray 02/17/24 18:53 IMPRESSION: No acute cardiopulmonary process. Chest/Abdomen/Pelvis CT 02/17/24 21:32 IMPRESSION: Mild initial edema. Mild esophagitis/gastritis. Large right psoas abscess, measuring up to 19.7 cm, which may extend from the inferior pole the right kidney. A 3.4 cm left perirenal collection, a suspected abscess, is also present. Head CT 02/18/24 05:35 Impression: No significant abnormality seen. Catheter Placement CT 02/18/24 15:18 IMPRESSION: 1. Successful CT-guided right retroperitoneal abscess drainage. 2. 10 mL opaque, light green fluid was sent for aerobic and anaerobic cultures. Brain MRI 02/20/24 12:12 IMPRESSION: 1. Moderate nonspecific cerebral white matter disease, which likely represents chronic small vessel ischemic disease. Abdomen/Pelvis CT 02/23/24 12:31 IMPRESSION: 1. Small pericardial effusion. 2. Small pleural effusions. 3. Percutaneous drain in right psoas muscle. Right psoas muscle remains larger than the left suggesting inflammation, but no definite significant residual drainable fluid is identified. 4. 2.2 x 0.5 cm right perinephric abscess. 5. 2.2 x 1.2 cm left perinephric abscess. Labs Labs: Laboratory Results - last 24 hr 02/26/24 04:37 WBC 12.5 H RBC 2.93 L Hgb 8.0 L Hct 25.1 L MCV 85.7 MCH 27.3 MCHC 31.9 L RDW 17.2 H Plt Count 417 H MPV 10.4 Immature Gran % (Auto) 1.1 H Neut % (Auto) 72.8 Lymph % (Auto) 16.0 L [place] % (Auto) 8.1 Eos % (Auto) 1.6 Baso % (Auto) 0.4 Lymph # (Auto) 2.00 [place] # (Auto) 1.0 H Eos # (Auto) 0.2 Baso # (Auto) 0.1 Abs Immat Gran (auto) 0.14 H Absolute Neuts (auto) 9.1 H Absolute Nucleated RBC 0.000 Nucleated RBC % 0.0 Sodium 134 L Potassium 4.4 Chloride 106 Carbon Dioxide 26 Anion Gap 2 L BUN 24 H Creatinine 1.00 Estim Creat Clear Calc 32 Estimated GFR 53 L Glucose 117 H Calcium 10.8 H Magnesium 1.6 Total Bilirubin 0.4 AST 36 ALT 17 Alkaline Phosphatase 88 Total Protein 5.0 L Albumin 2.5 L
--- NOTE | 2024-02-26 13:31 | P.PNIM_ITS ---
Progress Note: A&P Assessment and Plan (1) Perinephric abscess: Code(s): N15.1 - Renal and perinephric abscess Status: Acute Assessment and Plan: * CT of the chest abdomen and pelvis showed large right this on a abscess measuring 19.7 cm at the right kidney a 3.4 cm in the left * IR placed a pigtail and Drained the abscess * Pigtail has been removed. * Wound culture grew E coli * Urine grew E coli as well * Continue Levaquin p.o. will likely need extensive treatment * To surgery and Urology both consulted (2) Confusion: Code(s): R41.0 - Disorientation, unspecified Status: Acute Assessment and Plan: * Unknown baseline * A&O x3 currently * Brain MRI with no acute findings * Continue to trend mental status (3) Sepsis with metabolic encephalopathy: Code(s): A41.9 - Sepsis, unspecified organism; R65.20 - Severe sepsis without septic shock; G93.41 - Metabolic encephalopathy Status: Acute Assessment and Plan: * Met SIRS with temp 96.0, HR 105, RR 25, with a source of infection being the bilateral abscess * CT of the C/A/P shows an abscess * IR placed a pig tail, removed on 02/25/2024 * Levaquin continued * Trend labs and vital signs * general surgery and urology consulted (4) Chronic anticoagulation: Code(s): Z79.01 - correction (current) use of anticoagulants Status: Chronic Assessment and Plan: * Continue Xarelto * Hx of afib * education of bleeding precautions (5) Psoas abscess: Code(s): K68.12 - Psoas muscle abscess Status: Acute Assessment and Plan: * See above (6) Electrolyte imbalance: Code(s): E87.8 - Other disorders of electrolyte and fluid balance, not elsewhere classified Status: Acute Assessment and Plan: * Labs stable * Replete as indicated Plan # chronic conditions -essential hypertension: Valsartan, metoprolol, hydrochlorothiazide, hydralazine t.i.d. -gout: Allopurinol -osteoporosis: Alendronate -supplements: B complex, vitamin-C -paroxysmal atrial fibrillation: Anticoagulation Xarelto, on metoprolol for rate control - anemia: Hemoglobin stable at 8.9. likely chronic anemia Diet: Regular diet dietary supplement DVT prophylaxis: resuming xarelto Code status: DNR Disposition: Pending PT, likely discharge soon Time Spent With Patient Time: 52 minutes Time with patient: Greater than 35 minutes Subjective Date/time seen: 02/26/24 13:31 Interval history: Admitting H&P 02/18/2024 12:13 pm Our patient is a 83 year old white female with chronic multiple medical issues who lives at home with her daughter. She is complaining of feeling weak, tired with generalized fatigue which is getting worse over the last few days. She has not been tolerating any oral intake and is unable to get out of the bed and has very little motivation. When asked by the ER physician why she is here, she responded ? because I am dying . Workup was done in the ED which showed significant leukocytosis, multiple lab abnormalities, dehydration and hyperkalemia. Urinalysis was significant for UTI. CT scan of the chest abdomen and pelvis done which showed Large right psoas abscess, measuring up to 19.7 cm, which may extend from the inferior pole the right kidney. A 3.4 cm left perirenal collection, a suspected abscess, was also present. ER physician spoke with the General surgery who recommended urology consultation as the origin is possibly from right kidney. She has been treated aggressively with IV fluids and IV antibiotics in the ED. She is being admitted for medical management, IV antibiotics, Urology evaluation, further evaluation and workup including possible surgical intervention. 02/26/2024 0915 Today patient is doing okay. She did state that she was not having any pain. She did really stop talking whenever questions schedule difficult. She currently seems to be okay. Attempted to start IV however was unable. Patient appears to need rehab at this time. Review of Systems Review of Systems: All systems reviewed & are unremarkable except as noted in HPI and below ROS unobtainable: Yes unobtainable due to mental status Exam Narrative: - GENERAL: Pleasant woman in no acute distress. Well-nourished. - EYES: EOMI. Anicteric. - HENT: Moist mucous membranes. - LUNGS: Clear to auscultation bilateral ly, no wheezing, rhonchi, or rales. - CARDIOVASCULAR: Regular rate and rhyth m. No murmur. No JVD. - ABDOMEN: Soft, non-tender and non-dist ended. pigtail catheter present - EXTREMITIES: 1-2+ edema. Peripheral pu lses 2+. Non-tender. - NEUROLOGIC: No focal neurological defi cits. CN II-XII grossly intact. - PSYCHIATRIC: Awake, Alert and oriented x 3. Appropriate mood and affect. - SKIN: No rashes or lesions. Warm. Objective Data Vital Signs Vital Signs: Vital Signs - 24 hr 02/25/24 14:00 02/25/24 17:04 02/25/24 20:00 Temperature 97.6 F Pulse Rate 76 Respiratory Rate 19 Blood Pressure 133/41 L 152/48 H Pulse Oximetry 100 100 Oxygen Delivery Room Air 02/25/24 22:00 02/26/24 05:20 02/26/24 05:43 Temperature 97.5 F L 98.3 F 97.4 F L Pulse Rate 114 H 52 L 63 Respiratory Rate 18 18 18 Blood Pressure 160/50 H 152/74 H 127/36 L Pulse Oximetry 99 99 100 Oxygen Delivery 02/26/24 09:19 02/26/24 09:20 02/26/24 12:24 Temperature Pulse Rate 66 60 Respiratory Rate 16 Blood Pressure 137/40 L Pulse Oximetry 99 Oxygen Delivery Room Air Intake/Output Intake/Output: Intake & Output 02/23/24 02/24/24 02/25/24 02/26/24 23:59 23:59 23:59 23:59 Intake Total 50 1030 640 790 Output Total 1190 1245 1510 300 Balance -1140 -215 -870 490 Meds/Results Medications: Active Medications Generic Name Dose Route Start Last Admin Trade Name Freq PRN Reason Stop Dose Admin Acetaminophen 650 mg 02/18/24 12:38 Acetaminophen 325 Mg Tablet PO Q4H PRN Mild Pain (1-3) or Fever Allopurinol 300 mg 02/19/24 09:00 02/26/24 09:19 Allopurinol 300 Mg Tablet PO 300 mg DAILY JENNA Administration Hydralazine HCl 50 mg 02/23/24 17:00 02/26/24 12:26 Hydralazine Hcl 50 Mg Tablet PO Not Given TID JENNA Hydrochlorothiazide 12.5 mg 02/19/24 09:00 02/26/24 09:19 Hydrochlorothiazide 12.5 Mg Capsule PO 12.5 mg QAM JENNA Administration Levofloxacin 750 mg 02/23/24 21:00 02/25/24 20:14 Levofloxacin 750 Mg Tablet PO 750 mg Q48H JENNA Administration Magnesium Oxide 400 mg 02/25/24 09:00 02/26/24 09:19 Magnesium Oxide 400 Mg Tablet PO 400 mg DAILY JENNA Administration Metoprolol Succinate 50 mg 02/19/24 09:00 02/26/24 09:19 Metoprolol Succinate Ext Rel 50 Mg Tabcr PO 50 mg DAILY JENNA Administration Rivaroxaban 15 mg 02/25/24 17:00 02/25/24 17:04 Rivaroxaban 15 Mg Tablet PO 15 mg DAILY@1700 JENNA Administration Valsartan 80 mg 02/19/24 09:00 02/26/24 09:19 Valsartan 80 Mg Tablet PO 80 mg QAM JENNA Administration Radiology Results: ITS Impressions Chest X-Ray 02/17/24 18:53 IMPRESSION: No acute cardiopulmonary process. Chest/Abdomen/Pelvis CT 02/17/24 21:32 IMPRESSION: Mild initial edema. Mild esophagitis/gastritis. Large right psoas abscess, measuring up to 19.7 cm, which may extend from the inferior pole the right kidney. A 3.4 cm left perirenal collection, a suspected abscess, is also present. Head CT 02/18/24 05:35 Impression: No significant abnormality seen. Catheter Placement CT 02/18/24 15:18 IMPRESSION: 1. Successful CT-guided right retroperitoneal abscess drainage. 2. 10 mL opaque, light green fluid was sent for aerobic and anaerobic cultures. Brain MRI 02/20/24 12:12 IMPRESSION: 1. Moderate nonspecific cerebral white matter disease, which likely represents chronic small vessel ischemic disease. Abdomen/Pelvis CT 02/23/24 12:31 IMPRESSION: 1. Small pericardial effusion. 2. Small pleural effusions. 3. Percutaneous drain in right psoas muscle. Right psoas muscle remains larger than the left suggesting inflammation, but no definite significant residual drainable fluid is identified. 4. 2.2 x 0.5 cm right perinephric abscess. 5. 2.2 x 1.2 cm left perinephric abscess. Labs Labs: Laboratory Results - last 24 hr 02/26/24 04:37 WBC 12.5 H RBC 2.93 L Hgb 8.0 L Hct 25.1 L MCV 85.7 MCH 27.3 MCHC 31.9 L RDW 17.2 H Plt Count 417 H MPV 10.4 Immature Gran % (Auto) 1.1 H Neut % (Auto) 72.8 Lymph % (Auto) 16.0 L [place] % (Auto) 8.1 Eos % (Auto) 1.6 Baso % (Auto) 0.4 Lymph # (Auto) 2.00 [place] # (Auto) 1.0 H Eos # (Auto) 0.2 Baso # (Auto) 0.1 Abs Immat Gran (auto) 0.14 H Absolute Neuts (auto) 9.1 H Absolute Nucleated RBC 0.000 Nucleated RBC % 0.0 Sodium 134 L Potassium 4.4 Chloride 106 Carbon Dioxide 26 Anion Gap 2 L BUN 24 H Creatinine 1.00 Estim Creat Clear Calc 32 Estimated GFR 53 L Glucose 117 H Calcium 10.8 H Magnesium 1.6 Total Bilirubin 0.4 AST 36 ALT 17 Alkaline Phosphatase 88 Total Protein 5.0 L Albumin 2.5 L Quality VTE Prophylaxis VTE prophylaxis: mechanical ordered
[2024-02-26 14:00] VITALS: BP 134/58; PULSE 60; RESP 16; TEMP 36.4; O2SAT 99
[2024-02-26] MEDS: RIVAROXABAN 15 MG TABLET PO (17:14)
[2024-02-26 19:42] VITALS: BP 125/32; PULSE 120; RESP 18; TEMP 36.4; O2SAT 99
[2024-02-27] VITALS: BP 140/30; PULSE 60; RESP 18; TEMP 36.7; O2SAT 97
[2024-02-27 06:00] VITALS: BP 140/31; PULSE 51; RESP 18; TEMP 36.7; O2SAT 100
[2024-02-27 08:46] VITALS: BP 128/36
[2024-02-27 09:27] VITALS: PULSE 84
[2024-02-27] MEDS: METOPROLOL SUCCINATE EXT REL 50 MG TABCR PO (09:27)
[2024-02-27] MEDS: MAGNESIUM OXIDE 400 MG TABLET PO (09:27)
[2024-02-27] MEDS: allopurinoL 300 MG TABLET PO (09:27)
[2024-02-27] MEDS: BUMETANIDE 1 MG TABLET PO (09:27)
--- NOTE | 2024-02-27 09:46 | WPDUROPN2 ---
Progress Note: A&P Assessment and Plan (1) Psoas abscess: Code(s): K68.12 - Psoas muscle abscess Status: Acute Assessment and Plan: Noted to have markedly enlarged right psoas abscess. Underwent CT-guided percutaneous abscess drainage on 02/18/2024. Abscess cultures with growth of E coli, also growing E coli in urine Repeat CT abdomen/pelvis completed on 02/22 shows no significant residual drainable fluid of the right psoas. Pigtail drain removed 02/25/24 by General surgery WBC continues to improve and she remains afebrile Continue Levaquin based on cultures. Recommend she complete a 3 week course of p.o. antibiotics (2) Perinephric abscess: Code(s): N15.1 - Renal and perinephric abscess Status: Acute Assessment and Plan: Repeat CT demonstrates bilateral small perinephric abscesses Will continue to closely observe and plan for repeat CT as an outpatient in the next 2 weeks with follow-up after completion (3) UTI (urinary tract infection): Qualifiers: Hematuria presence: without hematuria Urinary tract infection type: acute cystitis Qualified Code(s): N30.00 - Acute cystitis without hematuria Code(s): N39.0 - Urinary tract infection, site not specified Status: Acute Assessment and Plan: Urine culture with growth of E coli. Continue Levaquin based on sensitivities. Blood cultures negative (4) Urine retention: Code(s): R33.9 - Retention of urine, unspecified Status: Chronic Assessment and Plan: Rodríguez catheter placed on 02/17. Failed a voiding trial on 02/25/2020 for an Rodríguez replaced on 02/26/2024. Plan for discharge with Rodríguez catheter and will complete void trial as an outpatient Plan Okay for discharge from a urologic standpoint at any time. Outpatient follow-up has been arranged. Hopeful discharge to rehab today Subjective Subjective Date/Time Seen: 02/27/24 09:46 Interval history: Doing well today. Reports no complaints. Unable to void yesterday, therefore Rodríguez replaced. She is tolerating this well. Draining clear yellow urine. Tolerating her diet. Denies back pain or flank pain. Review of Systems Review of Systems: All systems reviewed & are unremarkable except as noted in HPI and below Exam Narrative: General: Awake, alert, comfortable, no acute distress HEENT: Normocephalic, atraumatic, sclerae anicteric Respiratory: Normal respiratory effort, no accessory muscle use Abdomen: Nondistended, soft, nontender : Rodríguez catheter draining clear yellow urine Skin: Normal coloration, warm and dry Neurologic: No focal neuro deficits noted Psychiatric: Appropriate mood and affect, judgment and insight fair Objective Data Vital Signs Vital Signs: Vital Signs - 24 hr 02/26/24 12:24 02/26/24 14:00 02/26/24 19:42 Temperature 97.6 F 97.6 F Pulse Rate 60 60 120 H Respiratory Rate 16 16 18 Blood Pressure 137/40 L 134/58 L 125/32 L Pulse Oximetry 99 99 99 02/27/24 06:00 02/27/24 00:00 02/27/24 08:46 Temperature 98.0 F 98.0 F Pulse Rate 51 L 60 Respiratory Rate 18 18 Blood Pressure 140/31 L 140/30 L 128/36 L Pulse Oximetry 100 97 02/27/24 09:27 Temperature Pulse Rate 84 Respiratory Rate Blood Pressure Pulse Oximetry Intake/Output Intake/Output: Intake & Output 02/24/24 02/25/24 02/26/24 02/27/24 23:59 23:59 23:59 23:59 Intake Total 1030 640 791 Output Total 1245 1510 9130 1300 [facility] -215 -870 -809 -1300 Meds/Results Medications: Active Medications Generic Name Dose Route Start Last Admin Trade Name Freq PRN Reason Stop Dose Admin Acetaminophen 650 mg 02/18/24 12:38 Acetaminophen 325 Mg Tablet PO Q4H PRN Mild Pain (1-3) or Fever Allopurinol 300 mg 02/19/24 09:00 02/27/24 09:27 Allopurinol 300 Mg Tablet PO 300 mg DAILY [facility] Administration Hydralazine HCl 50 mg 02/23/24 17:00 02/27/24 09:26 Hydralazine Hcl 50 Mg Tablet PO Not Given TID JENNA Hydrochlorothiazide 12.5 mg 02/19/24 09:00 02/27/24 09:26 Hydrochlorothiazide 12.5 Mg Capsule PO Not Given QAM JENNA Levofloxacin 750 mg 02/23/24 21:00 02/25/24 20:14 Levofloxacin 750 Mg Tablet PO 750 mg Q48H [facility] Administration Magnesium Oxide 400 mg 02/25/24 09:00 02/27/24 09:27 Magnesium Oxide 400 Mg Tablet PO 400 mg DAILY [facility] Administration Metoprolol Succinate 50 mg 02/19/24 09:00 02/27/24 09:27 Metoprolol Succinate Ext Rel 50 Mg Tabcr PO 50 mg DAILY JENNA Administration Rivaroxaban 15 mg 02/25/24 17:00 02/26/24 17:14 Rivaroxaban 15 Mg Tablet PO 15 mg DAILY@1700 [facility] Administration Valsartan 80 mg 02/19/24 09:00 02/27/24 09:26 Valsartan 80 Mg Tablet PO Not Given QAM [facility] Radiology Results: ITS Impressions Chest X-Ray 02/17/24 18:53 IMPRESSION: No acute cardiopulmonary process. Chest/Abdomen/Pelvis CT 02/17/24 21:32 IMPRESSION: Mild initial edema. Mild esophagitis/gastritis. Large right psoas abscess, measuring up to 19.7 cm, which may extend from the inferior pole the right kidney. A 3.4 cm left perirenal collection, a suspected abscess, is also present. Head CT 02/18/24 05:35 Impression: No significant abnormality seen. Catheter Placement CT 02/18/24 15:18 IMPRESSION: 1. Successful CT-guided right retroperitoneal abscess drainage. 2. 10 mL opaque, light green fluid was sent for aerobic and anaerobic cultures. Brain MRI 02/20/24 12:12 IMPRESSION: 1. Moderate nonspecific cerebral white matter disease, which likely represents chronic small vessel ischemic disease. Abdomen/Pelvis CT 02/23/24 12:31 IMPRESSION: 1. Small pericardial effusion. 2. Small pleural effusions. 3. Percutaneous drain in right psoas muscle. Right psoas muscle remains larger than the left suggesting inflammation, but no definite significant residual drainable fluid is identified. 4. 2.2 x 0.5 cm right perinephric abscess. 5. 2.2 x 1.2 cm left perinephric abscess.
--- NOTE | 2024-02-27 09:54 | P.DS_ITS ---
DS: Admitting Diagnosis Discharge Date 02/27/2024 09 Admitting Diagnosis Psoas Abscess DS: Discharge Diagnosis Discharge Diagnosis (1) Perinephric abscess: Code(s): N15.1 - Renal and perinephric abscess Status: Acute (2) Confusion: Code(s): R41.0 - Disorientation, unspecified Status: Acute (3) Sepsis with metabolic encephalopathy: Code(s): A41.9 - Sepsis, unspecified organism; R65.20 - Severe sepsis without septic shock; G93.41 - Metabolic encephalopathy Status: Acute (4) Chronic anticoagulation: Code(s): Z79.01 - prison (current) use of anticoagulants Status: Chronic (5) Psoas abscess: Code(s): K68.12 - Psoas muscle abscess Status: Acute (6) Electrolyte imbalance: Code(s): E87.8 - Other disorders of electrolyte and fluid balance, not elsewhere classified Status: Acute Plan # right psoas abscess with E coli -status post IR drainage 02/17 -antibiotics: P.o. Levaquin 02/22- based on cultures (for E coli abscess and bacteriuria) - down trending leukocytosis 15k ->13k -appreciate general surgery consult: removing pigtail catheter today # bilateral perinephric abscess -found on CT scan of abdomen -urology recommends [address] follow-up # electrolyte imbalances - hypokalemia: Potassium 3.0 giving KCL 40 mEq x2 - hypomagnesemia: Magnesium 1.5, Starting Mag oxide 400 mg daily - repleting electrolytes # chronic conditions -essential hypertension: Valsartan, metoprolol, hydrochlorothiazide, hydralazine t.i.d. -gout: Allopurinol -osteoporosis: Alendronate -supplements: B complex, vitamin-C -paroxysmal atrial fibrillation: Anticoagulation Xarelto, on metoprolol for rate control - anemia: Hemoglobin stable at 8.9. likely chronic anemia Diet: Regular diet dietary supplement DVT prophylaxis: resuming xarelto Code status: DNR Disposition: Pending PT, likely discharge soon DS: Summary Hospital Course Hospital Course: Patient 83-year-old female with a past medical history of AFib, gout, hypertension, proximal AFib who presented to the ED with complaints of feeling weak, tired and just overall generalized fatigue. Patient had not been tolerating any oral like any oral intake at time of admission and did no to have dehydration and hyperkalemia at time of admission. Urinalysis did indicate UTI. CT did show large right psoas abscess. General surgery and Urology were both consulted and pigtail was placed for drainage of the abscess. MRI of the brain was also performed for confusion which did not show any acute findings however did show chronic findings. Patient did have a Rodríguez catheter however did feel her folding trial. Rodríguez catheter has been reinserted. Patient was initiated on Levaquin and Flagyl which had been reduced to Levaquin per culture results. Currently patient is doing well. White count is down to 12.5 today. All the labs and vital signs are stable at this time. Patient will be discharged to a rehab facility as she is max assist at this time. She is A&O x4 at this time. Spoke with Urology and General surgery who both agree with discharge at this time. Patient will go on long dose of Levaquin. Urology is requesting the patient follow-up in the office in 2 weeks. Currently patient is doing well and is stable for discharge. Status at Discharge Overall status at discharge: patient is progressing back to baseline Time Spent with Patient Time attestation: Total time spent providing and/or coordinating discharge services: 49 minutes Time spent: Greater than 30 minutes Specific discharge activities: Diagnostic testing, chart review, developing a treatment plan, education, care coordination documentation, physical exam, result review Exam Narrative: - GENERAL: Pleasant woman in no acute distress. Well-nourished. - EYES: EOMI. Anicteric. - HENT: Moist mucous membranes. - LUNGS: Clear to auscultation bilateral ly, no wheezing, rhonchi, or rales. - CARDIOVASCULAR: Regular rate and rhyth m. No murmur. No JVD. - ABDOMEN: Soft, non-tender and non-dist ended. - EXTREMITIES: 2+ pitting edema. Periphe ral pulses 2+. Non-tender. - NEUROLOGIC: No focal neurological defi cits. CN II-XII grossly intact. - PSYCHIATRIC: Awake, Alert and oriented x 3. Appropriate mood and affect. - SKIN: No rashes or lesions. Warm. DS: Data Data Completed and Pending Labs on day of discharge: Labs from last 24 hours 02/26/24 04:37 WBC 12.5 H RBC 2.93 L Hgb 8.0 L Hct 25.1 L MCV 85.7 MCH 27.3 MCHC 31.9 L RDW 17.2 H Plt Count 417 H MPV 10.4 Immature Gran % (Auto) 1.1 H Neut % (Auto) 72.8 Lymph % (Auto) 16.0 L [place] % (Auto) 8.1 Eos % (Auto) 1.6 Baso % (Auto) 0.4 Lymph # (Auto) 2.00 [place] # (Auto) 1.0 H Eos # (Auto) 0.2 Baso # (Auto) 0.1 Abs Immat Gran (auto) 0.14 H Absolute Neuts (auto) 9.1 H Absolute Nucleated RBC 0.000 Nucleated RBC % 0.0 Sodium 134 L Potassium 4.4 Chloride 106 Carbon Dioxide 26 Anion Gap 2 L BUN 24 H Creatinine 1.00 Estim Creat Clear Calc 32 Estimated GFR 53 L Glucose 117 H Calcium 10.8 H Magnesium 1.6 Total Bilirubin 0.4 AST 36 ALT 17 Alkaline Phosphatase 88 Total Protein 5.0 L Albumin 2.5 L Discharge Plan Discharge Attending physician on discharge: Christi Hudson Consulting providers: Parish Siu V.; Tariq Walls; Dayana Wang; Louann Almodovar Discharging Clinician: Luis Plunkett Patient Disposition: SNF Activity: may shower, unlimited and as tolerated Diet: regular Discharge Instructions: * Take all medications as prescribed even if feeling better * Eat well balanced meals and stay hydrated * Keep active to remain strong * Avoid use of diapers or pads * Good elder Care every 2 hours * Trend urine output * If you should experience any chest pain, shortness of breath, temps >100.4 or any other worrisome symptoms please follow up with your PCP come back to the hospital * Follow up with your primary in 1 weeks * Follow up with Urology as instructed * It has been a pleasure taking care of you thank you for using our services. Urinary catheter maintenance * Catheter was placed on 02/26/2024 * Please use sterile technique when handling or dealing with a catheter * Patient will need to follow up with Urology in 2 weeks for voiding trial * Trend track all urine output Patient Instructions: Antibiotic Form, Pain Management (GEN), Help Prevent Suicide (GEN), Blood Thinners (GEN) Stand Alone Forms: General Discharge Information Follow-up/Referrals: Veronique,Osmel Swenson MD [Primary Care Provider] - Call for Appointment Manuel Perez MD [Physician] - Call for Appointment Discharge Medications: New levofloxacin 750 mg tablet 750 mg PO DAILY Qty: 19 0RF Rx Instructions: Last dose on the tamsulosin 0.4 mg capsule 0.4 mg PO DAILY Qty: 30 0RF magnesium oxide 400 mg (241.3 mg magnesium) Tablet 400 mg PO DAILY Qty: 30 0RF Continued vitamin B complex [B Complex-Vitamin B12] Tablet 1 tablet PO DAILY metoprolol succinate 100 mg tablet extended release 24 hr 50 mg PO DAILY valsartan-hydrochlorothiazide 80-12.5 mg tablet 1 tablet PO DAILY Hold Instructions: HOLD for 2 doses and then resume allopurinol 300 mg tablet 300 mg PO DAILY Xarelto 15 mg tablet 15 mg PO DAILY hydralazine 100 mg tablet 100 mg PO DAILY alendronate-vitamin D3 1,000 unit PO DAILY ascorbate calcium (vitamin C) 500 mg PO DAILY Date of admission: 02/18/24 01:10 Primary Care Provider: VeroniqueOsmel Admitting Provider: Viki Cunningham Attending physician on admission: Arsenio Doyle Condition: Stable Quality VTE Prophylaxis VTE prophylaxis: mechanical ordered
[2024-02-27 12:52] LABS: SARS-CoV-2 RNA PCR Negative (Negative)
== END 2024-02-27 14:24 | DRG 371 ==
LOC: ANHED 02-18 00:18 → ANH2MED 02-18 01:17
PROVIDERS: Emergency Medicine; Family Medicine; Physician Assistant; Student in an Organized Health Care Education/Training Program; Surgery; Admitting Provider Internal Medicine; Emergency Provider Physician Assistant; PCP Internal Medicine; Visit Provider Nurse Practitioner
DX: K68.12 Psoas muscle abscess (principal); G93.41 Metabolic encephalopathy; J81.0 Acute pulmonary edema; N15.1 Renal and perinephric abscess; N17.9 Acute kidney failure, unspecified; N39.0 Urinary tract infection, site not specified; E44.0 Moderate protein-calorie malnutrition; Z68.1 Body mass index [BMI] 19.9 or less, adult; I48.0 Paroxysmal atrial fibrillation; I10 Essential (primary) hypertension; B96.20 Unspecified Escherichia coli [E. coli] as the cause of diseases classified elsewhere; E87.6 Hypokalemia; E83.42 Hypomagnesemia; E83.52 Hypercalcemia; M10.9 Gout, unspecified; M81.0 Age-related osteoporosis without current pathological fracture; R33.9 Retention of urine, unspecified; Z20.822 Contact with and (suspected) exposure to COVID-19; Z11.52 Encounter for screening for COVID-19; Z79.01 Long term (current) use of anticoagulants
CPT/HCPCS: 36415; 70450; 70553; 71045; 71260; 74176; 74177; 75989; 80048; 80053; 81001; 82040; 82140; 82550; 82607; 82746; 83605; 83690; 83735; 83970; 84100; 84443; 84484; 85025; 85027; 85610; 85652; 85730; 86140; 87040; 87070; 87075; 87077; 87086; 87088; 87186; 87205; 87635; 87637; 93005; 95816; 96361; 96365; 97110; 97162; 97166; 97530; 97535; 99285; A9270; A9577; C1729; C1769; J1836; J1956; J2270; J3480; J7030; Q9967

== ENCOUNTER 2024-02-29 04:32 | Inpatient (IN) | payer MEDICARE, SELFPAY ==
[2024-02-29] VITALS (8 sets, daily range): BP systolic 113–117; BP diastolic 40–52; PULSE 55–85; RESP 16–18; TEMP 36.1–36.6; O2SAT 96–99
--- NOTE | ~2024-02-29 | XR_ITS ---
XR abdomen/kub 1V Ordering provider: Fani Pollock MD History: . ABD PAIN . Comparison: None. FINDINGS: Drainage catheters are projected over the upper abdomen most likely for abscess drainage. Right doubl e-J stent is also noted. BOWEL: Slightly dilated bowel loops in the right upper quadrant. Follow-up advised.Nonobstructive bow el gas pattern. ORGANOMEGALY: None. SIGNIFICANT PATHOLOGIC CALCIFICATIONS: None. OTHER: No free air is seen under the diaphragm. Degenerative the spine. Pubic symphysitis. Left sacroiliitis. Bilateral hip osteoarthritic changes. IMPRESSION: NO definite ACUTE ABDOMINAL FINDINGS. Slightly dilated bowel loops in the right upper quadrant. Follo w-up advised. Reviewed, dictated and finalized at location A. IMPRESSION: NO definite ACUTE ABDOMINAL FINDINGS. Slightly dilated bowel loops in the right upper quadrant. Follow-up advised.
--- NOTE | ~2024-02-29 | XR_ITS ---
XR chest PICC line Ordering provider: Bobby Chung MD History: 83 years Female with . picc line placement . Comparison: February 17, 2024 FINDINGS: MEDIASTINUM: The cardiac silhouette is not enlarged. Congestive kiki. Right PICC line with the tip overlying pneumonia cannot. LUNGS: No effusion or pneumothorax. Prominent markings in the lower lobes and perihilar areas. OTHER: Degenerative changes of the spine. No free air under the diaphragm. IMPRESSION: Bilateral interstitial changes with prominent markings suggestive of pneumonitis versus edema. Follow -up advised. Reviewed, dictated and finalized at location A. IMPRESSION: Bilateral interstitial changes with prominent markings suggestive of pneumoniti s versus edema. Follow-up advised.
--- NOTE | ~2024-02-29 | CT_ITS ---
EXAMINATION: CT guide absc cath placement, CT guide absc cath placement DATE: 03/01/2024 16:55 INDICATION: Recurrent right perinephric/psoas abscess and enlarging left perinephric abscess. TECHNIQUE: The procedure including the risks and benefits was discussed with the patient. Risks discu ssed included bleeding and infection. The patient understood the risks and benefits and agreed to pro ceed. The patient was confirmed to be receiving appropriate antibiotic coverage. The skin overlying the posterior right and left abdomen was prepped and draped in usual sterile fashion. Anesthetic was administered with 1% lidocaine subcutaneously. Attention was first turned to the right psoas abscess . An 18-gauge trochar needle was advanced into the right psoas abscess utilizing CT guidance. The inn er stylette was removed and a Bentson wire advanced into the fluid collection through the needle with position confirmed by CT. Utilizing Seldinger technique the needle was removed over the wire and the tract serially dilated to 12 [place] and a 12 [place]an pigtail catheter advanced over the wire into the fluid collection. The loop was formed with position confirmed by CT prior to removal of the stiffene r and wire. 35 mL of opaque purulent appearing nfhgadcd-[id number]-ordjnrd fluid was aspirated and sent t o lab for Gram stain and cultures. The catheter was stitched to the skin with suture and antibiotic o intment and a sterile dressing were applied. Attention was then turned to the left perinephric abscess. A second 18-gauge trochar needle was advan jostin into the abscess utilizing CT guidance. The inner stylette was removed and a Bentson wire advance d through the needle into the fluid collection with position confirmed by CT. Utilizing Seldinger tala hnique the needle was removed over the wire and the tract serially dilated to 10 [place] and a 10 Fren ch pigtail catheter advanced over the wire into the fluid collection. The loop was formed with positi on confirmed by CT prior to removal of the stiffener and wire. 10 mL of opaque purulent appearing gre naeeq-yedepu-anrkgdh fluid was aspirated and sent to lab for Gram stain and cultures. The catheter wa s stitched to the skin with suture and antibiotic ointment and a sterile dressing were applied. Both catheters were then attached to suction drainage. There were no immediate complications. The dose-zion gth product was 548.31 (accession [id number]), 0.00 (accession [id number]) mGy-cm. FINDINGS: CT images demonstrate the first pigtail catheter within the right psoas abscess cavity. 35 mL fluid was aspirated for testing. Subsequent CT images demonstrate the second pigtail catheter posi tioned within the left perinephric abscess cavity. 10 mL fluid was aspirated for testing. Of note flo t dense excreted contrast is seen within the bilateral renal collecting systems and extending caudall y along the visualized bilateral ureters. There is no extravasation of contrast into either the right psoas or left perinephric abscess cavities. There does appear to be wall thickening and an irregular mucosal contour to the contrast opacified portions of the proximal left ureter but without evident h ydronephrosis. IMPRESSION: 1. Successful CT-guided right psoas abscess drainage catheter placement with aspiration of 35 mL of p urulent appearing fluid which was sent for Gram stain and aerobic and anaerobic cultures. 2. Successful CT-guided left perinephric abscess drainage catheter placement with aspiration of 10 mL of purulent appearing fluid which was sent for Gram stain and aerobic and anaerobic cultures. 3. The catheters will be managed by Dr. Perez and Dr. Saenz. 4. Wall thickening and irregular mucosal contour to the contrast opacified portion of the proximal le ft ureter which can be seen with either infection or malignancy. Consider retrograde ureteroscopy. Revi
--- NOTE | ~2024-02-29 | CT_ITS ---
EXAMINATION: CT abdomen pelvis w con DATE: 03/01/2024 09:51 INDICATION: Right psoas abscess TECHNIQUE: Computed tomography (CT) of the abdomen and pelvis was performed with 100 mL Omnipaque-350 intravenous contrast. Automated exposure control and iterative reconstruction technique were employe d. The dose-length product was 287.80 mGy-cm. COMPARISON: 02/23/2024 and 02/27/2023 FINDINGS: There are small dependently layering bilateral pleural effusions with adjacent dependent compressive atelectasis in the bilateral lower lobes. Heart size is normal. Unchanged small pericardial effusion. Atherosclerotic coronary artery calcific lesions. There are few peripheral subcapsular small geograp hic regions of increased enhancement at the caudal aspect right hepatic lobe the largest region measu ring approximately 2.5 x 1.5 cm. Dependent high attenuation either sludge or vicariously excreted con trast in the otherwise normal-appearing gallbladder with no wall thickening or pericholecystic inflam matory stranding to suggest acute cholecystitis. Pancreas, spleen and bilateral adrenal glands are no rmal. There is been interval increase in size of a now 4.2 x 3.5 x 2.5 cm lobular peripherally enhancing le ft perinephric abscess which contains a 4 mm calcification, potentially a renal stone. There are smal l geographic regions of decreased cortical enhancement at the left kidney which appear new since the prior study suspicious for pyelonephritis. The previously seen right psoas abscess drain is no longer present and there is been reaccumulation of a peripherally enhancing right psoas abscess which curre ntly measures 18 cm craniocaudal length and up to 5.3 x 2.2 cm in maximal transaxial dimensions. Ther e is also a 2 mm calcification, potentially renal stone in the dependent aspect of the right psoas ab scess. Both the left perinephric hematoma in the right psoas abscess demonstrated tracks extending to small cortical defects at both kidneys suggesting possible fistulous communication potentially along prior presenting as nephrostomy tube tracks related to prior chronic polynephritis. No bowel obstruction. Suggestion of a suture line for prior appendectomy along the tip of the cecum. Rodríguez catheter, some gas and excreted contrast in the decompressed bladder. Age-appropriate uterine a nd bilateral adnexal atrophy. Minimal likely reactive or physiologic free fluid in the cul-de-sac. No pathologically enlarged abdominal or pelvic lymphadenopathy. Mild lumbar dextrocurvature with severe spondylosis and chronic L2 compression fracture. IMPRESSION: 1. Reaccumulation of a 18 x 5.3 x 2.2 cm right psoas abscess and increase in size of a now 4.2 x 3.5 x 2.5 cm left perinephric abscess with suggestion of possible associated left pyelonephritis. 2. Persistent small bilateral pleural effusions and small pericardial effusion. 3. A few nonspecific small geographic regions of subcapsular enhancement at the caudal aspect of the right hepatic lobe which could be related to transient hepatic attenuation difference or neoplasm eit her benign or malignant. Recommend follow-up pre and postcontrast MRI when clinically improved. Reviewed, dictated and finalized at location A. IMPRESSION: 1. Reaccumulation of a 18 x 5.3 x 2.2 cm right psoas abscess and increase in si ze of a now 4.2 x 3.5 x 2.5 cm left perinephric abscess with suggestion of poss ible associated left pyelonephritis. 2. Persistent small bilateral pleural effusions and small pericardial effusion. 3. A few nonspecific small geographic regions of subcapsular enhancement at the caudal aspect of the right hepatic lobe which could be related to transient he patic attenuation difference or neoplasm either benign or malignant. Recommend follow-up pre and postcontrast MRI when clini
--- NOTE | ~2024-02-29 | XR_ITS ---
EXAMINATION: XR retrograde pyelogram BI DATE: 03/04/2024 15:57 INDICATION: Perinephric abscess. Bilateral retrograde pyelograms. TECHNIQUE: 231 fluoroscopic images of the abdomen and pelvis were obtained during urologic procedure performed by Dr. Perez. Radiologist was not present for the imaging or procedure. The amount of fluo roscopy time used during this procedure was 1.1 minutes. COMPARISON: CT dated 03/01/2024 FINDINGS: Initial coppersmith apprentice images demonstrate pigtail catheters projecting over the right lower quadrant and left upper quadrant. Subsequent images demonstrate cannulation and retrograde contrast injection into the bilateral ureters and opacifying the bilateral renal collecting systems. There is no hydronephrosis. The left ureter is unremarkable. There are numerous nonmobile lucent filling defects throughout the r ight ureter which appear to arise from the ureteral wall likely related to ureteritis. Final images d emonstrate a right internal ureteral stent with proximal loop in the right renal pelvis and distal lo op in the bladder. Throughout the study no evident extraluminal contrast extravasation or evident con trast in either of the drainage catheters. IMPRESSION: 1. No evident extraluminal contrast extravasation to suggest a fistulous communication to the drained abscess cavities. 2. Numerous polypoid filling defects arising along the wall of the right ureter suggestive of ureteri tis. A right internal ureteral stent has been placed which is in expected position. See procedure not e for further detail. Reviewed, dictated and finalized at location A. IMPRESSION: 1. No evident extraluminal contrast extravasation to suggest a fistulous commun ication to the drained abscess cavities. 2. Numerous polypoid filling defects arising along the wall of the right ureter suggestive of ureteritis. A right internal ureteral stent has been placed whic h is in expected position. See procedure note for further detail.
--- NOTE | 2024-02-29 03:26 | ADMGEN ---
This patient, Gely Hi, was admitted to Medical Room 343-01. Patient/family oriented to hospital policies and general routines including ID bracelet, bed and alarms, visiting hours, pain management, procedures, bathroom and other care routines, personal items, smoking policy, room service/diet, and visiting hours. Information on how to activate the Rapid Response Team has been discussed. Patient/Family are encouraged to report perceived risks to care and to ask questions if they do not understand what they are told or what they should do.
--- NOTE | 2024-02-29 04:05 | PM.IMHP ---
H&P: HPI History of Present Illness Date/Time: 02/29/24 04:05 Chief Complaint: Patient being transferred from [facility] with recurrence of right psoas abscess Narrative: He is a pleasantly confused 83 years old white female I admitted in this hospital 11 days ago with the right psoas abscess and bilateral perinephric abscesses. Treated aggressively with IV antibiotics and cleared for discharge by General surgery and Urology. Please see discharge summary as below: DS: Summary Hospital Course : 02/18/2024 - 02/27/2024: Hospital Course: Patient 83-year-old female with a past medical history of AFib, gout, hypertension, proximal AFib who presented to the ED with complaints of feeling weak, tired and just overall generalized fatigue. Patient had not been tolerating any oral like any oral intake at time of admission and did no to have dehydration and hyperkalemia at time of admission. Urinalysis did indicate UTI. CT did show large right psoas abscess. General surgery and Urology were both consulted and pigtail was placed for drainage of the abscess. MRI of the brain was also performed for confusion which did not show any acute findings however did show chronic findings. Patient did have a Rodríguez catheter however did feel her folding trial. Rodríguez catheter has been reinserted. Patient was initiated on Levaquin and Flagyl which had been reduced to Levaquin per culture results. Currently patient is doing well. White count is down to 12.5 today. All the labs and vital signs are stable at this time. Patient will be discharged to a rehab facility as she is max assist at this time. She is A&O x4 at this time. Spoke with Urology and General surgery who both agree with discharge at this time. Patient will go on long dose of Levaquin. Urology is requesting the patient follow-up in the office in 2 weeks. Currently patient is doing well and is stable for discharge. Patient was at her rehab facility for 1 day when she started getting aggressive with the staff and had status. Patient sent hospital ER for evaluation. Workup was done which showed recurrence of right psoas abscess 2.6 x 3.4 x 13 cm in size and mild leukocytosis. ER physician called me and for. I requested ER physician to reach out to our general surgeon and urologist for approval and inflammation today will follow up with the patient in our hospital as we do not have any infectious disease doctor. Both urology and surgery confirmed that they will follow-up with the patient. She is being transferred here for further management. I saw and evaluated the patient today. She feels tired and fatigued and pleasantly confused. She is being admitted for IV antibiotics general surgery/urology evaluations, further workup and medical management. Review of Systems Review of Systems: Unable to be obtained. Patient is pleasantly confused ROS unobtainable: Yes unobtainable due to mental status PMFSH Past Medical History Medical History A-fib Encounter for removal of skin lesion Gout Hypertension Osteoporosis Paroxysmal A-fib Sepsis with metabolic encephalopathy Skin cancer Surgical History Surgical History H/O cataract extraction H/O lumpectomy H/O tubal ligation History of appendectomy History of removal of pigmented skin lesion Family History Family History Mother Alzheimer's dementia Hypothyroidism Father Cancer Diabetes mellitus Social History Social History Social History: she has 2 daughters and is . she lives with her daughter. 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 She does not use any drugs alcohol or marijuana. code status full code Smoking status: Former smoker Alcohol intake: unknown Drinks per week: 1 Substance
[2024-02-29] MEDS: SODIUM CHLORIDE 0.9% IV 1,000 ML 75 ML IV CONT ×2 (05:37→21:49)
[2024-02-29 05:56] LABS: Basophils Percent Auto 0.2 % (0.2-1.2); Hematocrit 23.5 % (37.0-47.0); Hemoglobin 7.4 g/dL (12.0-15.0); Immature Granulocyte Absolute 0.09 K/mm3 (0.00-0.031); Immature Granulocyte Percent A 0.5 % (0-0.5); Lymphocytes Absolute Auto 0.84 K/mm3 (0.9-3.2); Mean Corpuscular HGB Conc 31.5 g/dl (32-36); Mean Corpuscular Hemoglobin 27.4 pg (26-34); Monocytes Percent Auto 6.1 % (2.6-8.5); Neutrophils Absolute Auto 14.8 K/mm3 (1.3-6.7); Neutrophils Percent Auto 88.2 % (45.5-73.1); Platelet Count Result 315 k/mm3 (150-375); Red Cell Distribution Width 18.2 % (11.5-14.5); White Blood Count 16.8 K/mm3 (4.5-10.0)
[2024-02-29 06:12] LABS: Anion Gap 5 mmol/L (4-12); Blood Urea Nitrogen 18 mg/dL (7-17); Carbon Dioxide 21 mmol/L (22-30); Chloride 107 mmol/L (98-107); Estimated Glomerular Filt Rate 43; Glucose 139 mg/dL (65-110); Magnesium 1.5 mg/dL (1.6-2.3); Phosphorus 3.1 mg/dL (2.5-4.5); Potassium 3.3 mmol/L (3.4-5.0); Sodium 133 mmol/L (137-145)
[2024-02-29] MEDS: VANCOMYCIN 1,250 MG/NS 250 ML 1,250 MG/250 ML BAG 166.67 MG IVPB (08:26)
--- NOTE | 2024-02-29 10:31 | PM.IMPN ---
Progress Note: A&P Assessment and Plan (1) Perinephric abscess: Code(s): N15.1 - Renal and perinephric abscess Status: Acute Assessment and Plan: Patient presented to the ED on 02/17/[address] scan showing large right psoas abscess, measuring up to 19.7 cm, which may extend from the inferior pole the right kidney. A 3.4 cm left perirenal collection possibly abscess was also present. She underwent CT-guided right retroperitoneal abscess drain placement on 02/17. BCx were negative. UCx grew EColi that was pansensitive. Abscess Cx also grew EColi that was pansensitive. GenSurg and Urology involved in the case. She was treated with Levaquin and Flagyl. Repeat CT 02/22 showing percutaneous drain in right psoas muscle. Right psoas muscle remains larger than the left suggesting inflammation, but no definite significant residual drainable fluid is identified. Also with a 2.2 x 0.5 cm right and a 2.2 x 1.2 cm left perinephric abscess. Drain removed 02/24 and patient discharged on 02/26 on Levaquin. Patient was at rehab for 1 day before becoming aggressive with staff. She was seen at an outside hospital where repeat imaging showing recurrence of right psoas abscess 2.6 x 3.4 x 13 cm in size and mild leukocytosis. Patient was transferred to for further management. Renal function up slightly but BUN better WBC 16.8K and remains anemic. GenSurg and Urology consulted. Patient will need replacement of drain. She was continue on Levaquin and Vanco added. Will change Levaquin to meropenem until cultures known. (2) Psoas abscess: Code(s): K68.12 - Psoas muscle abscess Status: Acute Assessment and Plan: As above (3) Metabolic encephalopathy: Code(s): G93.41 - Metabolic encephalopathy Status: Acute Assessment and Plan: Patient with confusion last admission. She had an an abnormal EEG due to presence of moderate diffuse background slowing suggestive generalized cephalopathy. However no definite focal or paroxysmal epileptiform abnormality was seen. She was seen by neurology and felt the cognitive changes related to metabolic encephalopathy. She remains confused today posisbly due to recurrent infection. Head CT showing no acute findings. Monitor mental status as we treat her ongoing infection. (4) Paroxysmal A-fib: Code(s): I48.0 - Paroxysmal atrial fibrillation Status: Chronic Assessment and Plan: Patient with pAFib on Toprol XL for rate and rhythm control and Xarelto for stroke prophylaxis She is remaining in NSR. Resume Toprol XL. Hold Xarelto and resume when okay with surgery. Monitor on tele (5) Hypertension: Code(s): I10 - Essential (primary) hypertension Status: Acute Assessment and Plan: Patient's blood pressure was reviewed on 02/28 Blood pressure remains well controlled. Will resume Toprol-XL. Will hold her other medications this time. Zoom other antihypertensive medications as blood pressure requires. Plan DVT prophylaxis -SCDs Code status -DNR Subjective Date/time seen: 02/29/24 10:31 Interval history: 83yo female with dementia, AFib, HTN and recent complex abdominal process with abscess here for weakness. Patient is alert but confused and unable to provide accurate hx. No issues overrnight Review of Systems Review of Systems: ROS unobtainable: Yes unobtainable due to mental status Exam Narrative: AF 97.7 114/42 85 18 96% ra Gen - NARD lying flat in bed Chest - lungs clear anteriorly and in the flanks. nml RR CV - RRR S1/S2. Tele showing no significant dysrhythmias Abd - Soft, ND, mild tenderness, +BS Ext - No pedal edema Neuro - Alert and oriented to location and name. Psych - Nml mood and affect Skin - Warm and dry Objective Data Vital Signs Vital Signs: Vital Signs - 24 hr 02/29/24 03:42 02/29/24 06:00 Temperature 97.7 F Pulse Rate 85 Respiratory Rate 18 Blood Pressu
[2024-02-29] MEDS: MAGNESIUM SULF 2 GM/WATER 50ML 2 GM/50 ML BAG IVPB (10:47)
[2024-02-29] MEDS: VITAMIN B COMPLEX CAPSULE 1 CAP PO (11:18)
[2024-02-29] MEDS: POTASSIUM CHLORIDE 20 MEQ PACKET (FOR LIQUID) 40 MEQ PO (11:18)
[2024-02-29] MEDS: allopurinoL 300 MG TABLET PO (11:18)
[2024-02-29] MEDS: ASCORBIC ACID 500 MG TABLET PO (11:18)
[2024-02-29] MEDS: METOPROLOL SUCCINATE EXT REL 50 MG TABCR PO (11:19)
--- NOTE | 2024-02-29 11:56 | WPDURCON ---
Assessment and Plan Assessment and plan (1) Perinephric abscess: Code(s): N15.1 - Renal and perinephric abscess Status: Acute Plan 83-year-old female with complex medical history recent history of psoas abscess to was found to have a recurrence of the right psoas/perinephric abscess at outside hospital - At that time of diagnosis of the recurrence of the right psoas abscess, the outside hospital provider had reached out to our team, and I communicated that it would require interventional radiology drainage but no acute urologic intervention. I was notified that the interventional radiology team was not available on the weekend here at [facility]. I let the outside hospital emergency room physician know this, and he reached out to other facilities where there was Interventional Radiology coverage on the weekend. He was told that as this is not urgent or emergent, it did not require transfer to 1 of those facilities for urgent or emergent drainage today. Therefore, patient was deemed appropriate to be transferred to [facility] for potential drainage by the interventional radiology team on the weekday. -continue balance of care per primary team, including resuscitation, broad-spectrum antibiotics, and tailoring the antibiotics to patient's cultures. Consider Rodríguez catheter placement if patient is not urinating appropriately -I discussed all this with the daughter who was at bedside today, who endorses understanding. Urology Consult Note HPI Date Seen: 02/29/24 Requesting Physician: Arsenio Doyle MD Primary Care Provider: Osmel Moe, Consult Narrative Narrative: Gely Hi is a 83 year old female with a complex history including a previous perinephric/psoas abscess status post interventional radiology drainage at the end of January who presented to the emergency room after her rehab facility noted she was getting more aggressive. She was sent to the [facility] and on imaging was found to a mildly elevated white blood cell count, but a recurrence of a right psoas abscess/perinephric that was 13 cm size. She was otherwise stable. At that time they had reached out to our team, and with this type of abscess it would require interventional radiology drainage. I was notified that the interventional radiology team was not available on the weekend. I let the emergency room physician know this, and he restarted other facilities where there was Interventional Radiology on the weekend. He was told that as this is not urgent or emergent, it did not require transfer to 1 of those facilities for urgent or emergent drainage today. Therefore, patient was deemed appropriate to be transferred to [facility] for potential drainage by the interventional radiology team on the weekday. Here, the patient is stable, and was sleeping on exam.. Her daughter is at bedside. Vitals within normal limits. Count 16, creatinine 1.2. [facility] Past Medical History Medical History A-fib Encounter for removal of skin lesion Gout Hypertension Osteoporosis Paroxysmal A-fib Sepsis with metabolic encephalopathy Skin cancer Surgical History Surgical History H/O cataract extraction H/O lumpectomy H/O tubal ligation History of appendectomy History of removal of pigmented skin lesion Family History Family History Mother Alzheimer's dementia Hypothyroidism Father Cancer Diabetes mellitus Social History Social History Social History: she has 2 daughters and is . she lives with her daughter. 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 She does not use any drugs alcohol or marijuana. code status full code Smoking status: Former smoker Alcohol intake: unknown Drinks per week: 1 [place]
[2024-02-29] MEDS: MEROPENEM 1 GM/NS 100 ML 1 GM/100 ML BAG IVPB ×2 (12:24→21:48)
--- NOTE | 2024-02-29 13:06 | PM.CNGS ---
Assessment and Plan Assessment and plan (1) Perinephric abscess: Code(s): N15.1 - Renal and perinephric abscess Status: Acute Assessment and Plan: Continue antibiotics for now, we will set up for CT-guided percutaneous drainage tomorrow History of Present Illness Consult details Consult date: 02/29/24 Reason for consult: other ( recurrent right psoas, perinephric abscess) Requesting physician: Arsenio Doyle MD Narrative: The patient is an 83-year-old female well known to our service from recent admission for right perinephric, psoas abscess. The patient was treated with antibiotics and IR drainage at that time. Patient was discharged to rehab facility last Friday. According to the patient's daughter, the patient worsened over the weekend. Her mental status declined and she began to complain of right-sided abdominal pain. The patient was sent to an outside emergency department and workup was significant for recurrent abscess. She has been transferred back to our facility for further care. Review of Systems Review of Systems: ROS unobtainable: Yes unobtainable due to mental status PMFSH Past Medical History Medical History A-fib Encounter for removal of skin lesion Gout Hypertension Osteoporosis Paroxysmal A-fib Sepsis with metabolic encephalopathy Skin cancer Surgical History Surgical History H/O cataract extraction H/O lumpectomy H/O tubal ligation History of appendectomy History of removal of pigmented skin lesion Family History Family History Mother Alzheimer's dementia Hypothyroidism Father Cancer Diabetes mellitus Social History Social History Social History: she has 2 daughters and is . she lives with her daughter. 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 She does not use any drugs alcohol or marijuana. code status full code Smoking status: Former smoker Alcohol intake: unknown Drinks per week: 1 Substance use: unknown Do You Feel Safe in your Home?: Yes Lack of Transportation: No Lack of Food: Never True Current Housing: I Have Housing Concerned About Future Housing: No Difficulty Paying Gas/Electric Bills: No Difficulty Paying for Meds: No Currently Unemployed: No Education: Don't Know Difficulty w/ Childcare or Family Care: No Spiritual care concerns: No Meds Home Medications and Allergies Home Medications Medication Instructions Recorded Confirmed Type alendronate-vitamin D3 1,000 unit PO DAILY 02/27/23 02/29/24 History allopurinol 300 mg tablet 300 mg PO DAILY 02/27/23 02/29/24 History hydralazine 100 mg tablet 100 mg PO DAILY 02/27/23 02/29/24 History rivaroxaban 15 mg tablet (Xarelto) 15 mg PO DAILY 02/27/23 02/29/24 History valsartan 80 1 tablet PO DAILY 02/27/23 02/29/24 History mg-hydrochlorothiazide 12.5 mg tablet vitamin B complex 1 tablet PO DAILY 02/18/24 02/29/24 History amlodipine 10 mg tablet 10 mg PO DAILY 02/29/24 02/29/24 History ascorbic acid (vitamin C) 500 mg 500 mg PO DAILY 02/29/24 02/29/24 History capsule,extended release metoprolol succinate 50 mg 50 mg PO DAILY 02/29/24 02/29/24 History tablet,extended release 24 hr (Toprol XL) Allergies Allergy/AdvReac Type Severity Reaction Status Date / Time atorvastatin Allergy Muscle Pain Verified 02/17/24 22:02 Cephalosporins Allergy Unknown Verified 02/17/24 16:05 clindamycin Allergy Unknown Verified 02/17/24 16:05 codeine Allergy Unknown Verified 02/17/24 16:05 meperidine Allergy Unknown Verified 02/17/24 16:05 morphine Allergy Unknown Verified 02/17/24 16:05 Penicillins Allergy Fainting Verified 02/17/24 22:01 propoxyphene Allergy Unknown Verified 02/17/24 16:05 rosuvastatin Allergy Unknow
[2024-02-29 15:40] LABS: Appearance Urine Clear (Clear); Bacteria Urine None Seen /hpf; Bilirubin Urine Negative (Negative); Blood Urine Negative (Negative); Color Urine Yellow (Yellow); Glucose Urine UA Negative (Negative); Ketones Urine Negative (Negative); Leukocyte Esterase Ur Trace LEU/UL (Negative); Nitrate Urine Negative (Negative); Protein Urine Trace mg/dL (Negative); RBC Urine 0-2 /hpf (0-2); Specific Grav Ur 1.021 (1.001-1.035); Squamous Epithelial Cell Urine None Seen /hpf (Few); Urobilinogen Urine 0.2 mg/dL (<2.0); WBC Urine 0-5 /hpf (0-3); pH Urine 5.5 (5.0-9.0)
[2024-02-29 15:41] LABS: Add Urine Microscopic? YES
[2024-03-01] VITALS (36 sets, daily range): BP systolic 119–161; BP diastolic 28–71; PULSE 49–64; RESP 12–24; TEMP 36.1–36.5; O2SAT 95–100; BMI 20.4
[2024-03-01 05:55] LABS: Basophils Absolute Auto 0.1 K/mm3 (0.0-0.1); Basophils Percent Auto 0.6 % (0.2-1.2); Eosinophils Absolute Auto 0.5 K/mm3 (0-0.3); Eosinophils Percent Auto 4.8 % (0-4.4); Hematocrit 22.5 % (37.0-47.0); Immature Granulocyte Absolute 0.04 K/mm3 (0.00-0.031); Immature Granulocyte Percent A 0.4 % (0-0.5); Lymphocytes Absolute Auto 0.87 K/mm3 (0.9-3.2); Lymphocytes Percent Auto 8.4 % (18.3-44.2); Mean Corpuscular HGB Conc 31.1 g/dl (32-36); Mean Corpuscular Hemoglobin 27.3 pg (26-34); Mean Corpuscular Volume 87.9 fl (80-100); Mean Platelet Volume 11.1 fl (7.4-10.4); Monocytes Absolute Auto 0.9 K/mm3 (0.1-0.6); Monocytes Percent Auto 8.9 % (2.6-8.5); Neutrophils Percent Auto 76.9 % (45.5-73.1); Platelet Count Result 294 k/mm3 (150-375); Red Blood Count 2.56 M/mm3 (4.2-5.4); Red Cell Distribution Width 18.5 % (11.5-14.5); White Blood Count 10.4 K/mm3 (4.5-10.0)
[2024-03-01 06:07] LABS: Alanine Aminotransferase 15 U/L (6-35); Albumin Level 2.2 g/dL (3.5-5.1); Alkaline Phosphatase 67 U/L (38-126); Anion Gap 3 mmol/L (4-12); Aspartate Amino Transferase 25 U/L (14-36); Bilirubin,Total 0.4 mg/dL (0.2-1.3); Blood Urea Nitrogen 16 mg/dL (7-17); Carbon Dioxide 23 mmol/L (22-30); Chloride 110 mmol/L (98-107); Estimated CRCL calculation 35 ml/min; Estimated Glomerular Filt Rate 60; Glucose 90 mg/dL (65-110); Magnesium 2.2 mg/dL (1.6-2.3); Phosphorus 2.9 mg/dL (2.5-4.5); Potassium 3.1 mmol/L (3.4-5.0); Sodium 136 mmol/L (137-145)
[2024-03-01] MEDS: POTASSIUM CHLORIDE 20 MEQ ER TABLET 40 MEQ PO (08:41)
[2024-03-01] MEDS: MEROPENEM 1 GM/NS 100 ML 1 GM/100 ML BAG IVPB ×2 (08:41→21:44)
[2024-03-01] MEDS: VITAMIN B COMPLEX CAPSULE 1 CAP PO (08:41)
[2024-03-01] MEDS: ASCORBIC ACID 500 MG TABLET PO (08:41)
[2024-03-01] MEDS: allopurinoL 300 MG TABLET PO (08:42)
[2024-03-01 08:56] LABS: Iron 35 ug/dL (37-170)
[2024-03-01 09:05] LABS: Percent Iron Saturation 20 % (20-50)
--- NOTE | 2024-03-01 09:30 | WPDUROPN2 ---
Progress Note: A&P Assessment and Plan (1) Psoas abscess: Code(s): K68.12 - Psoas muscle abscess Status: Acute Assessment and Plan: Recent admission 02/17/2024-02/27/2024 for psoas abscess that was drained with percutaneous drain by IR and treated with culture sensitive antibiotics Returned to outside hospital on 02/28/24 due to change in mental status. CT at outside facility showed recurrence of right psoas abscess Awaiting percutaneous drainage by IR. Deferred this morning due to decline in Hgb and need for transfusion Repeat CT of abdomen/pelvis ordered this morning per General surgery, awaiting completion Continue broad-spectrum antibiotics while awaiting culture data WBC has improved. Patient remains afebrile and vital signs are stable (2) Perinephric abscess: Code(s): N15.1 - Renal and perinephric abscess Status: Acute Assessment and Plan: Await repeat CT for further evaluation (3) Urine retention: Code(s): R33.9 - Retention of urine, unspecified Status: Chronic Assessment and Plan: Field voiding trial during last admission, Rodríguez placed on 02/26/2024 Continue Rodríguez catheter at this time Subjective Subjective Date/Time Seen: 03/01/24 09:30 Interval history: Gely is confused during my encounter. She is not able to provide any reliable history. Per RN at bedside, has had poor oral intake and has been drowsy. Her Rodríguez catheter is draining clear yellow urine. Her white blood cell count has improved from 16.8 to 10.4. Creatinine has improved from 1.2 to 0.9. Hemoglobin has declined to 7.0 and she will be receiving a transfusion Review of Systems Review of Systems: ROS unobtainable: Yes unobtainable due to mental status Exam Narrative: General: Awake, drowsy, oriented to self only, comfortable, no acute distress HEENT: Normocephalic, atraumatic, sclerae anicteric Respiratory: Normal respiratory effort, no accessory muscle use Abdomen: Nondistended, soft, nontender : Rodríguez catheter draining clear yellow Skin: Slightly pale, warm and dry Neurologic: No focal neuro deficits noted Psychiatric: Pleasantly confused, judgment and insight poor Objective Data Vital Signs Vital Signs: Vital Signs - 24 hr 02/29/24 11:19 02/29/24 14:00 02/29/24 12:00 Temperature 96.9 F L Pulse Rate 61 58 L 63 Respiratory Rate 18 Blood Pressure 117/40 L Pulse Oximetry 99 Oxygen Delivery 02/29/24 16:00 02/29/24 20:00 02/29/24 20:00 Temperature Pulse Rate 55 L 61 Respiratory Rate Blood Pressure Pulse Oximetry Oxygen Delivery Room Air 02/29/24 22:00 03/01/24 00:00 03/01/24 04:00 Temperature 97.8 F Pulse Rate 57 L 52 L 50 L Respiratory Rate 16 Blood Pressure 113/52 L Pulse Oximetry 97 Oxygen Delivery 03/01/24 06:00 03/01/24 08:42 Temperature 97.3 F L Pulse Rate 50 L 49 L Respiratory Rate 16 Blood Pressure 140/71 Pulse Oximetry 95 Oxygen Delivery Intake/Output Intake/Output: Intake & Output 02/27/24 02/28/24 02/29/24 03/01/24 23:59 23:59 23:59 23:59 Intake Total 1438 440 Output Total 925 500 Balance 513 -60 Meds/Results Medications: Active Medications Generic Name Dose Route Start Last Admin Trade Name Freq PRN Reason Stop Dose Admin Acetaminophen 650 mg 02/29/24 04:32 Acetaminophen 325 Mg Tablet PO Q4H PRN Mild Pain (1-3) or Fever Al Hydrox/Mg Hydrox/Simethicone 30 ml 02/29/24 04:32 Mag Hydrox/Al Hydrox/Simeth 30 Ml Udc PO QID PRN Dyspepsia Allopurinol 300 mg 02/29/24 09:00 03/01/24 08:42 Allopurinol 300 Mg Tablet PO 300 mg DAILY JENNA Administration Ascorbic Acid 500 mg 02/29/24 09:00 03/01/24 08:41 Ascorbic Acid 500 Mg Tablet PO 500 mg QAM JENNA Administration Sodium Chloride 1,000 mls @ 75 mls/hr 02/29/24 04:40 02/29/24 21:49 Normal Saline Iv IV CONT 75 mls/hr .[id number] JENNA Administr
--- NOTE | 2024-03-01 10:10 | PM.PNGS ---
Progress Note: A&P Assessment and Plan (1) Perinephric abscess: Code(s): N15.1 - Renal and perinephric abscess Status: Acute Assessment and Plan: Last admission, felt that this was related to source given recurrent urinary retention/UTI with cultures suggesting the same. Repeat CT on previous admission showed no recurrent psoas abscess but two small perinephric abscesses. Continue IV antibiotics. Repeat CT scan today for evaluation of psoas abscess. (2) Urine retention: Code(s): R33.9 - Retention of urine, unspecified Status: Chronic Plan I have discussed the patient's case and plan of care with Dr. Saenz. Subjective Subjective Date/Time Seen: 03/01/24 09:10 Patient reports: no new complaints and afebrile Interval history: Patient known from previous admission and returned to outlying ER from SNF for evaluation of AMS. Workup showed recurrent right psoas abscess with mild leukocytosis. Chart reviewed. She was transferred directly to [facility]. CT-guided percutaneous drainage has been ordered for today. Patient oriented x 3 during my exam. Denies any back or abdominal pain. No specific complaints at this time. Exam Const: General: comfortable and no acute distress GI: Inspection: non-distended GI Palp: Yes Soft to palpation, Yes Tenderness to palpation present (GI) (RUQ and RLQ), No Guarding due to palpation present (GI) and No Rebound tenderness present Auscultation: normal bowel sounds Objective Data Vital Signs Vital Signs: Vital Signs - 24 hr 02/29/24 11:19 02/29/24 14:00 02/29/24 12:00 Temperature 96.9 F L Pulse Rate 61 58 L 63 Respiratory Rate 18 Blood Pressure 117/40 L Pulse Oximetry 99 Oxygen Delivery 02/29/24 16:00 02/29/24 20:00 02/29/24 20:00 Temperature Pulse Rate 55 L 61 Respiratory Rate Blood Pressure Pulse Oximetry Oxygen Delivery Room Air 02/29/24 22:00 03/01/24 00:00 03/01/24 04:00 Temperature 97.8 F Pulse Rate 57 L 52 L 50 L Respiratory Rate 16 Blood Pressure 113/52 L Pulse Oximetry 97 Oxygen Delivery 03/01/24 06:00 03/01/24 08:42 Temperature 97.3 F L Pulse Rate 50 L 49 L Respiratory Rate 16 Blood Pressure 140/71 Pulse Oximetry 95 Oxygen Delivery Intake/Output Intake/Output: Intake & Output 02/27/24 02/28/24 02/29/24 03/01/24 23:59 23:59 23:59 23:59 Intake Total 1438 800 Output Total 925 500 Balance 513 300 Meds/Results Medications: Active Medications Generic Name Dose Route Start Last Admin Trade Name Freq PRN Reason Stop Dose Admin Acetaminophen 650 mg 02/29/24 04:32 Acetaminophen 325 Mg Tablet PO Q4H PRN Mild Pain (1-3) or Fever Al Hydrox/Mg Hydrox/Simethicone 30 ml 02/29/24 04:32 Mag Hydrox/Al Hydrox/Simeth 30 Ml Udc PO QID PRN Dyspepsia Allopurinol 300 mg 02/29/24 09:00 03/01/24 08:42 Allopurinol 300 Mg Tablet PO 300 mg DAILY JENNA Administration Ascorbic Acid 500 mg 02/29/24 09:00 03/01/24 08:41 Ascorbic Acid 500 Mg Tablet PO 500 mg QAM JENNA Administration Sodium Chloride 1,000 mls @ 75 mls/hr 02/29/24 04:40 02/29/24 21:49 Normal Saline Iv IV CONT 75 mls/hr .[id number] JENNA Administration Vancomycin HCl 1,000 mg in 250 mls @ 250 mls/hr 03/01/24 20:00 Vancomycin 1,000 Mg/Ns 250 Ml IVPB Q36H JENNA Meropenem 1 gm in 100 mls @ 200 mls/hr 02/29/24 10:55 03/01/24 08:41 IVPB 200 mls/hr Q12HR JENNA Administration Sodium Chloride 250 mls @ 30 mls/hr 03/01/24 07:02 Normal Saline Iv IV CONT 03/01/24 15:21 .Q8H20M STA Magnesium Hydroxide 30 ml 02/29/24 04:32 Magnesium Hydroxide Susp 30 Ml Udc PO DAILY PRN Constipation Metoprolol Succinate 50 mg 02/29/24 09:00 03/01/24 08:42 Metoprolol Succinate Ext Rel 50 Mg Tabcr PO Not Given DAILY JENNA Vitamin B Complex 1 cap 02/29/24 09:00 03/01/24 08:41 Vitamin B Complex Capsule PO 1 cap MINH
--- NOTE | 2024-03-01 10:14 | PM.PNGS ---
Progress Note: A&P Assessment and Plan (1) Perinephric abscess: Code(s): N15.1 - Renal and perinephric abscess Status: Acute Assessment and Plan: will get CT and likely will need perc drain for recurrent abscess, cont IV abx Subjective Subjective Date/Time Seen: 03/01/24 10:14 Interval history: very lethargic today, not eating much Review of Systems Review of Systems: ROS unobtainable: Yes unobtainable due to mental status Exam Const: General: ill appearing and lethargic Resp: Auscultation: diminished lung sounds Cardio: Rate: regular rate Rhythm: regular rhythm GI: Inspection: normal to inspection and non-distended GI Palp: Yes abdominal tenderness, Yes Soft to palpation, Yes Tenderness to palpation present (GI), No Guarding due to palpation present (GI) and No Rigid due to palpation Objective Data Vital Signs Vital Signs: Vital Signs - 24 hr 02/29/24 11:19 02/29/24 14:00 02/29/24 12:00 Temperature 36.1 C L Pulse Rate 61 58 L 63 Respiratory Rate 18 Blood Pressure 117/40 L Pulse Oximetry 99 Oxygen Delivery 02/29/24 16:00 02/29/24 20:00 02/29/24 20:00 Temperature Pulse Rate 55 L 61 Respiratory Rate Blood Pressure Pulse Oximetry Oxygen Delivery Room Air 02/29/24 22:00 03/01/24 00:00 03/01/24 04:00 Temperature 36.6 C Pulse Rate 57 L 52 L 50 L Respiratory Rate 16 Blood Pressure 113/52 L Pulse Oximetry 97 Oxygen Delivery 03/01/24 06:00 03/01/24 08:42 Temperature 36.3 C L Pulse Rate 50 L 49 L Respiratory Rate 16 Blood Pressure 140/71 Pulse Oximetry 95 Oxygen Delivery Intake/Output Intake/Output: Intake & Output 02/27/24 02/28/24 02/29/24 03/01/24 23:59 23:59 23:59 23:59 Intake Total 1438 800 Output Total 925 500 Balance 513 300 Meds/Results Medications: Active Medications Generic Name Dose Route Start Last Admin Trade Name Freq PRN Reason Stop Dose Admin Acetaminophen 650 mg 02/29/24 04:32 Acetaminophen 325 Mg Tablet PO Q4H PRN Mild Pain (1-3) or Fever Al Hydrox/Mg Hydrox/Simethicone 30 ml 02/29/24 04:32 Mag Hydrox/Al Hydrox/Simeth 30 Ml Udc PO QID PRN Dyspepsia Allopurinol 300 mg 02/29/24 09:00 03/01/24 08:42 Allopurinol 300 Mg Tablet PO 300 mg DAILY JENNA Administration Ascorbic Acid 500 mg 02/29/24 09:00 03/01/24 08:41 Ascorbic Acid 500 Mg Tablet PO 500 mg QAM JENNA Administration Sodium Chloride 1,000 mls @ 75 mls/hr 02/29/24 04:40 02/29/24 21:49 Normal Saline Iv IV CONT 75 mls/hr .[id number] JENNA Administration Vancomycin HCl 1,000 mg in 250 mls @ 250 mls/hr 03/01/24 20:00 Vancomycin 1,000 Mg/Ns 250 Ml IVPB Q36H JENNA Meropenem 1 gm in 100 mls @ 200 mls/hr 02/29/24 10:55 03/01/24 08:41 IVPB 200 mls/hr Q12HR JENNA Administration Sodium Chloride 250 mls @ 30 mls/hr 03/01/24 07:02 Normal Saline Iv IV CONT 03/01/24 15:21 .Q8H20M STA Magnesium Hydroxide 30 ml 02/29/24 04:32 Magnesium Hydroxide Susp 30 Ml Udc PO DAILY PRN Constipation Metoprolol Succinate 50 mg 02/29/24 09:00 03/01/24 08:42 Metoprolol Succinate Ext Rel 50 Mg Tabcr PO Not Given DAILY JENNA Vitamin B Complex 1 cap 02/29/24 09:00 03/01/24 08:41 Vitamin B Complex Capsule PO 1 cap DAILY JENNA Administration Labs Labs: Laboratory Results - last 24 hr 02/29/24 03/01/24 03/01/24 15:24 05:24 08:18 WBC 10.4 H RBC 2.56 L Hgb 7.0 L Hct 22.5 L MCV 87.9 MCH 27.3 MCHC 31.1 L RDW 18.5 H Plt Count 294 MPV 11.1 H Immature Gran % (Auto) 0.4 Neut % (Auto) 76.9 H Lymph % (Auto) 8.4 L [place] % (Auto) 8.9 H Eos % (Auto) 4.8 H Baso % (Auto) 0.6 Lymph # (Auto) 0.87 L [place] # (Auto) 0.9 H Eos # (Auto) 0.5 H Baso # (Auto) 0.1 Abs Immat Gran (auto) 0.04 H Absolute Neuts (auto) 8.0 H Absolute Nucleated RBC 0.000 Nucleated RBC % 0.
--- NOTE | 2024-03-01 10:39 | PM.IMPN ---
Progress Note: A&P Assessment and Plan (1) Perinephric abscess: Code(s): N15.1 - Renal and perinephric abscess Status: Acute Assessment and Plan: Patient presented to the ED on 02/17/[address] scan showing large right psoas abscess, measuring up to 19.7 cm, which may extend from the inferior pole the right kidney. A 3.4 cm left perirenal collection possibly abscess was also present. She underwent CT-guided right retroperitoneal abscess drain placement on 02/17. BCx were negative. UCx grew EColi that was pansensitive. Abscess Cx also grew EColi that was pansensitive. GenSurg and Urology involved in the case. She was treated with Levaquin and Flagyl. Repeat CT 02/22 showing percutaneous drain in right psoas muscle. Right psoas muscle remains larger than the left suggesting inflammation, but no definite significant residual drainable fluid is identified. Also with a 2.2 x 0.5 cm right and a 2.2 x 1.2 cm left perinephric abscess. Drain removed 02/24 and patient discharged on 02/26 on Levaquin. Patient was at rehab for 1 day before becoming aggressive with staff. She was seen at an outside hospital where repeat imaging showing recurrence of right psoas abscess 2.6 x 3.4 x 13 cm in size and mild leukocytosis. Patient was transferred to for further management. Vanco and Levaquin started but Levaquin was changed to Meropenem 02/28 Renal function normal. WBC 16.8K on admission but trending down. GenSurg and Urology consulted. Repeat CT A/P here showing reaccumulation of a 18cm right psoas abscess and increase in size of a now 4.2cm left perinephric abscess with suggestion of possible associated left pyelonephritis. Patient will need drain replaced. Source is still unclear. Appreciate Urology and GenSurg input (2) Psoas abscess: Code(s): K68.12 - Psoas muscle abscess Status: Acute Assessment and Plan: As above (3) Metabolic encephalopathy: Code(s): G93.41 - Metabolic encephalopathy Status: Acute Assessment and Plan: Patient with confusion last admission. She had an an abnormal EEG due to presence of moderate diffuse background slowing suggestive generalized cephalopathy. However no definite focal or paroxysmal epileptiform abnormality was seen. She was seen by neurology and felt the cognitive changes related to metabolic encephalopathy. She remains confused today posisbly due to recurrent infection. Head CT showing no acute findings. Monitor mental status as we treat her ongoing infection. (4) Paroxysmal A-fib: Code(s): I48.0 - Paroxysmal atrial fibrillation Status: Chronic Assessment and Plan: Patient with pAFib on Toprol XL for rate and rhythm control and Xarelto for stroke prophylaxis Tele showing NSR and bradycardia at times. Xarelto on hold and will resume when okay with surgery. Will change her to metoprolol tartrate and lower dose Monitor on tele (5) Hypertension: Code(s): I10 - Essential (primary) hypertension Status: Acute Assessment and Plan: Patient's blood pressure was reviewed on 03/01 Blood pressure soft - related to anemia? We are holding Norvasc and valsartan/HCTZ at this time. Lower metoprolol dose Resume other antihypertensive medications as blood pressure requires. (6) Liver lesion: Code(s): K76.9 - Liver disease, unspecified Status: Acute Assessment and Plan: CT scan also shows a few nonspecific small geographic regions of subcapsular enhancement at the caudal aspect of the right hepatic lobe Diferential related to transient hepatic attenuation difference or neoplasm either benign or malignant. LFTs normal Pre and postcontrast MRI recommended and will perform when clinically improved. (7) Anemia: Code(s): D64.9 - Anemia, unspecified Status: Acute Assessment and Plan: Hgb was low mostly in the 8 range last admission. hgb 8.0 at discharge(02/26/24) Hgb 7.4 on admission an
[2024-03-01] MEDS: SODIUM CHLORIDE 0.9% IV 250 ML 30 ML IV CONT (10:51)
--- NOTE | 2024-03-01 13:16 | PCOTNOTE ---
Per RN, pt just finished a unit of blood and is going down for a procedure shortly. Pt is lethargic and not appropriate for therapy today. Will continue to follow for OT evaluation.
[2024-03-01] MEDS: SODIUM CHLORIDE 0.9% IV 1,000 ML 75 ML IV CONT (18:30)
[2024-03-01 21:04] LABS: Hematocrit 29.9 % (37.0-47.0); Hemoglobin 9.6 g/dL (12.0-15.0)
[2024-03-01] MEDS: VANCOMYCIN 1,000 MG/NS 250 ML 1,000 MG/250 ML BAG 125 MG IVPB (21:30)
[2024-03-01] MEDS: METOPROLOL TARTRATE 12.5 MG TABLET PO (21:44)
[2024-03-01] MEDS: ACETAMINOPHEN 325 MG TABLET 650 MG PO (21:47)
[2024-03-02] VITALS (11 sets, daily range): BP systolic 147–151; BP diastolic 31–45; PULSE 48–77; RESP 16–18; TEMP 36.2–36.7; O2SAT 96–97
[2024-03-02 06:26] LABS: Basophils Absolute Auto 0.1 K/mm3 (0.0-0.1); Basophils Percent Auto 0.5 % (0.2-1.2); Eosinophils Absolute Auto 0.7 K/mm3 (0-0.3); Eosinophils Percent Auto 5.2 % (0-4.4); Hematocrit 28.7 % (37.0-47.0); Hemoglobin 9.2 g/dL (12.0-15.0); Immature Granulocyte Absolute 0.05 K/mm3 (0.00-0.031); Immature Granulocyte Percent A 0.4 % (0-0.5); Lymphocytes Absolute Auto 0.68 K/mm3 (0.9-3.2); Lymphocytes Percent Auto 5.4 % (18.3-44.2); Mean Corpuscular HGB Conc 32.1 g/dl (32-36); Mean Corpuscular Hemoglobin 27.7 pg (26-34); Mean Corpuscular Volume 86.4 fl (80-100); Mean Platelet Volume 11.4 fl (7.4-10.4); Monocytes Percent Auto 8.1 % (2.6-8.5); Neutrophils Absolute Auto 10.1 K/mm3 (1.3-6.7); Neutrophils Percent Auto 80.4 % (45.5-73.1); Platelet Count Result 305 k/mm3 (150-375); Red Blood Count 3.32 M/mm3 (4.2-5.4); Red Cell Distribution Width 17.6 % (11.5-14.5); White Blood Count 12.6 K/mm3 (4.5-10.0)
[2024-03-02 06:40] LABS: Anion Gap 2 mmol/L (4-12); Blood Urea Nitrogen 12 mg/dL (7-17); Calcium 9.7 mg/dL (8.4-10.2); Carbon Dioxide 21 mmol/L (22-30); Chloride 110 mmol/L (98-107); Estimated CRCL calculation 44 ml/min; Estimated Glomerular Filt Rate > 60; Glucose 99 mg/dL (65-110); Potassium 3.4 mmol/L (3.4-5.0); Sodium 133 mmol/L (137-145)
[2024-03-02] MEDS: PANTOPRAZOLE SODIUM IV 40 MG VIAL IV PUSH (09:03)
[2024-03-02] MEDS: allopurinoL 300 MG TABLET PO (09:03)
[2024-03-02] MEDS: ASCORBIC ACID 500 MG TABLET PO (09:03)
[2024-03-02] MEDS: POTASSIUM CHLORIDE 20 MEQ ER TABLET 40 MEQ PO (09:03)
[2024-03-02] MEDS: VITAMIN B COMPLEX CAPSULE 1 CAP PO (09:04)
[2024-03-02] MEDS: METOPROLOL TARTRATE 12.5 MG TABLET PO ×2 (09:05→20:09)
[2024-03-02] MEDS: MEROPENEM 1 GM/NS 100 ML 1 GM/100 ML BAG IVPB ×2 (09:24→20:09)
--- NOTE | 2024-03-02 09:43 | WPDUROPN2 ---
Progress Note: A&P Assessment and Plan (1) Psoas abscess: Code(s): K68.12 - Psoas muscle abscess Status: Acute Assessment and Plan: Recent admission 02/17/2024-02/27/2024 for psoas abscess that was drained with percutaneous drain by IR (removed 02/25/2024) and treated with culture sensitive antibiotics Returned to outside hospital on 02/28/24 due to change in mental status. CT at outside facility showed recurrence of right psoas abscess 03/01/[address]-guided right psoas abscess drainage by IR. Fluid collected for cultures. Continue to monitor drain output Continue broad-spectrum antibiotics while awaiting culture data (2) Perinephric abscess: Code(s): N15.1 - Renal and perinephric abscess Status: Acute Assessment and Plan: CT of abdomen/pelvis on 03/01/2024 demonstrated increased size of left perinephric abscess Underwent left perinephric abscess drainage by IR on 03/01/2024. Fluid collected for culture which is pending at this time Monitor drain output closely Continue broad-spectrum antibiotics pending cultures as above (3) Urine retention: Code(s): R33.9 - Retention of urine, unspecified Status: Chronic Assessment and Plan: Failed voiding trial during last admission, Rodríguez replaced on 02/26/2024 Continue Rodríguez catheter at this time Subjective Subjective Date/Time Seen: 03/02/24 09:43 Interval history: Gely's feeling well today. She has some soreness in her bilateral flanks but otherwise has no concerns. Denies nausea, vomiting, fever, or chills. She is tolerating her liquid diet. Review of Systems Review of Systems: All systems reviewed & are unremarkable except as noted in HPI and below Exam Narrative: General: Awake, drowsy, oriented to self only, comfortable, no acute distress HEENT: Normocephalic, atraumatic, sclerae anicteric Respiratory: Normal respiratory effort, no accessory muscle use Abdomen: Nondistended, soft, nontender, bilateral drains with scant output of gamboa serous fluid : Rodríguez catheter draining clear yellow Skin: Slightly pale, warm and dry Neurologic: No focal neuro deficits noted Psychiatric: Pleasantly confused, judgment and insight poor Objective Data Vital Signs Vital Signs: Vital Signs - 24 hr 03/01/24 10:44 03/01/24 11:00 03/01/24 12:00 Temperature 97 F L 97.4 F L 97.2 F L Pulse Rate 56 L 51 L 53 L Respiratory Rate 16 16 18 Blood Pressure 123/28 L 123/33 L 132/33 L Pulse Oximetry 98 98 96 Oxygen Delivery Oxygen Flow Rate 03/01/24 13:02 03/01/24 13:52 03/01/24 12:00 Temperature 97.4 F L 97.4 F L Pulse Rate 54 L 53 L 51 L Respiratory Rate 16 16 Blood Pressure 119/34 L 119/34 L Pulse Oximetry 98 98 Oxygen Delivery Oxygen Flow Rate 03/01/24 14:45 03/01/24 14:50 03/01/24 15:50 Temperature Pulse Rate 50 L 55 L 53 L Respiratory Rate 19 24 H 12 Blood Pressure 139/39 L 146/37 H 145/42 H Pulse Oximetry 99 100 100 Oxygen Delivery Nasal Cannula Nasal Cannula Nasal Cannula Oxygen Flow Rate 2 2 2 03/01/24 16:15 03/01/24 14:55 03/01/24 15:00 Temperature Pulse Rate 61 52 L 57 L Respiratory Rate 14 17 16 Blood Pressure 161/39 H 132/35 L 135/34 L Pulse Oximetry 100 100 100 Oxygen Delivery Room Air Nasal Cannula Nasal Cannula Oxygen Flow Rate 2 2 03/01/24 15:05 03/01/24 15:10 03/01/24 15:15 Temperature Pulse Rate 53 L 51 L 54 L Respiratory Rate 16 17 15 Blood Pressure 136/37 L 143/47 H 141/36 H Pulse Oximetry 100 100 100 Oxygen Delivery Nasal Cannula Nasal Cannula Nasal Cannula Oxygen Flow Rate 2 2 2 03/01/24 15:20 03/01/24 15:30 03/01/24 15:25 Temperature Pulse Rate 52 L 52 L 52 L Respiratory Rate 24 H 24 H 16 Blood Pressure 138/33 L 137/35 L 146/35 H Pulse Oximetry 100 100 100 Oxygen Delivery Nasal Cannula Nasal Cannula Nasal Cannula Oxygen Flow Rate 2 2 2 03/01/24 15:35 03/01/24 15:40 03/01/24 15:45 Temperature Pu
--- NOTE | 2024-03-02 10:16 | WPDMODSED ---
Moderate Sedation Note-Pt Data Patient Data Diagnosis: left perinephric and right psoas muscle abscess Present Complaint: left perinephric and right psoas muscle abscess Procedure to be performed/Plan: abscess drain catheter placement Allergies Allergy/AdvReac Type Severity Reaction Status Date / Time atorvastatin Allergy Muscle Pain Verified 02/17/24 22:02 Cephalosporins Allergy Unknown Verified 02/17/24 16:05 clindamycin Allergy Unknown Verified 02/17/24 16:05 codeine Allergy Unknown Verified 02/17/24 16:05 meperidine Allergy Unknown Verified 02/17/24 16:05 morphine Allergy Unknown Verified 02/17/24 16:05 Penicillins Allergy Fainting Verified 02/17/24 22:01 propoxyphene Allergy Unknown Verified 02/17/24 16:05 rosuvastatin Allergy Unknown Verified 02/17/24 22:03 Sulfa (Sulfonamide Allergy Other Verified 02/17/24 22:05 Antibiotics) tramadol Allergy Unknown Verified 02/17/24 16:05 Home Medications Medication Instructions Recorded Confirmed Type alendronate-vitamin D3 1,000 unit PO DAILY 02/27/23 02/29/24 History allopurinol 300 mg tablet 300 mg PO DAILY 02/27/23 02/29/24 History hydralazine 100 mg tablet 100 mg PO DAILY 02/27/23 02/29/24 History rivaroxaban 15 mg tablet (Xarelto) 15 mg PO DAILY 02/27/23 02/29/24 History valsartan 80 1 tablet PO DAILY 02/27/23 02/29/24 History mg-hydrochlorothiazide 12.5 mg tablet vitamin B complex 1 tablet PO DAILY 02/18/24 02/29/24 History amlodipine 10 mg tablet 10 mg PO DAILY 02/29/24 02/29/24 History ascorbic acid (vitamin C) 500 mg 500 mg PO DAILY 02/29/24 02/29/24 History capsule,extended release metoprolol succinate 50 mg 50 mg PO DAILY 02/29/24 02/29/24 History tablet,extended release 24 hr (Toprol XL) Current Medications: Active Medications Acetaminophen (Acetaminophen 325 Mg Tablet) 650 mg PO Q4H PRN PRN Reason: Mild Pain (1-3) or Fever Last Admin: 03/01/24 21:47 Dose: 650 mg Al Hydrox/Mg Hydrox/Simethicone (Mag Hydrox/Al Hydrox/Simeth 30 Ml Udc) 30 ml PO QID PRN PRN Reason: Dyspepsia Allopurinol (Allopurinol 300 Mg Tablet) 300 mg PO DAILY [facility] Last Admin: 03/02/24 09:03 Dose: 300 mg Ascorbic Acid (Ascorbic Acid 500 Mg Tablet) 500 mg PO QAM [facility] Last Admin: 03/02/24 09:03 Dose: 500 mg Sodium Chloride (Normal Saline Iv) 1,000 mls @ 75 mls/hr IV CONT .[id number] [facility] Last Admin: 03/01/24 18:30 Dose: 75 mls/hr Meropenem () 1 gm in 100 mls @ 200 mls/hr IVPB Q12HR [facility] Last Admin: 03/02/24 09:24 Dose: 100 mls/hr Vancomycin HCl (Vancomycin 1,000 Mg/Ns 250 Ml) 1,000 mg in 250 mls @ 125 mls/hr IVPB Q24H [facility] Magnesium Hydroxide (Magnesium Hydroxide Susp 30 Ml Udc) 30 ml PO DAILY PRN PRN Reason: Constipation Metoprolol Tartrate (Metoprolol Tartrate 12.5 Mg Tablet) 12.5 mg PO Q12HR [facility] Last Admin: 03/02/24 09:05 Dose: 12.5 mg Pantoprazole Sodium (Pantoprazole Sodium Iv 40 Mg Vial) 40 mg IV PUSH QAM [facility] Last Admin: 03/02/24 09:03 Dose: 40 mg Vitamin B Complex (Vitamin B Complex Capsule) 1 cap PO DAILY [facility] Last Admin: 03/02/24 09:04 Dose: 1 cap Sedation/Anesthesia: No previous sedation/anesthesia problems (including family history). [facility] Past Medical History Medical History A-fib Encounter for removal of skin lesion Gout Hypertension Osteoporosis Paroxysmal A-fib Sepsis with metabolic encephalopathy Skin cancer Surgical History Surgical History H/O cataract extraction H/O lumpectomy H/O tubal ligation History of appendectomy History of removal of pigmented skin lesion Family History Family History Mother Alzheimer's dementia Hypothyroidism Father Cancer Diabetes mellitus Social History Social History Social History: she has 2 daughters and is . she lives with
--- NOTE | 2024-03-02 10:29 | PM.PNGS ---
Progress Note: A&P Assessment and Plan (1) Perinephric abscess: Code(s): N15.1 - Renal and perinephric abscess Status: Acute Assessment and Plan: much improved s/p drain, cont abx, encourage po, OOB (2) Psoas abscess: Code(s): K68.12 - Psoas muscle abscess Status: Acute Assessment and Plan: see above Subjective Subjective Date/Time Seen: 03/02/24 10:29 Interval history: much improved today, eating and mentating better, no c/o abd pain Review of Systems Review of Systems: All systems reviewed & are unremarkable except as noted in HPI and below Exam Const: General: cooperative, comfortable and no acute distress Resp: Auscultation: diminished lung sounds Cardio: Rate: regular rate Rhythm: regular rhythm GI: Inspection: normal to inspection and non-distended GI Palp: Yes abdominal tenderness, Yes Soft to palpation, Yes Tenderness to palpation present (GI), No Guarding due to palpation present (GI) and No Rigid due to palpation Other: drain x 2 c purulent drainage Objective Data Vital Signs Vital Signs: Vital Signs - 24 hr 03/01/24 10:44 03/01/24 11:00 03/01/24 12:00 Temperature 36.1 C L 36.3 C L 36.2 C L Pulse Rate 56 L 51 L 53 L Respiratory Rate 16 16 18 Blood Pressure 123/28 L 123/33 L 132/33 L Pulse Oximetry 98 98 96 Oxygen Delivery Oxygen Flow Rate 03/01/24 13:02 03/01/24 13:52 03/01/24 12:00 Temperature 36.3 C L 36.3 C L Pulse Rate 54 L 53 L 51 L Respiratory Rate 16 16 Blood Pressure 119/34 L 119/34 L Pulse Oximetry 98 98 Oxygen Delivery Oxygen Flow Rate 03/01/24 14:45 03/01/24 14:50 03/01/24 15:50 Temperature Pulse Rate 50 L 55 L 53 L Respiratory Rate 19 24 H 12 Blood Pressure 139/39 L 146/37 H 145/42 H Pulse Oximetry 99 100 100 Oxygen Delivery Nasal Cannula Nasal Cannula Nasal Cannula Oxygen Flow Rate 2 2 2 03/01/24 16:15 03/01/24 14:55 03/01/24 15:00 Temperature Pulse Rate 61 52 L 57 L Respiratory Rate 14 17 16 Blood Pressure 161/39 H 132/35 L 135/34 L Pulse Oximetry 100 100 100 Oxygen Delivery Room Air Nasal Cannula Nasal Cannula Oxygen Flow Rate 2 2 03/01/24 15:05 03/01/24 15:10 03/01/24 15:15 Temperature Pulse Rate 53 L 51 L 54 L Respiratory Rate 16 17 15 Blood Pressure 136/37 L 143/47 H 141/36 H Pulse Oximetry 100 100 100 Oxygen Delivery Nasal Cannula Nasal Cannula Nasal Cannula Oxygen Flow Rate 2 2 2 03/01/24 15:20 03/01/24 15:30 03/01/24 15:25 Temperature Pulse Rate 52 L 52 L 52 L Respiratory Rate 24 H 24 H 16 Blood Pressure 138/33 L 137/35 L 146/35 H Pulse Oximetry 100 100 100 Oxygen Delivery Nasal Cannula Nasal Cannula Nasal Cannula Oxygen Flow Rate 2 2 2 03/01/24 15:35 03/01/24 15:40 03/01/24 15:45 Temperature Pulse Rate 55 L 56 L 57 L Respiratory Rate 14 15 15 Blood Pressure 142/34 H 143/41 H 144/39 H Pulse Oximetry 100 100 100 Oxygen Delivery Nasal Cannula Nasal Cannula Nasal Cannula Oxygen Flow Rate 2 2 2 03/01/24 15:40 03/01/24 15:55 03/01/24 16:00 Temperature Pulse Rate 56 L 60 54 L Respiratory Rate 15 16 16 Blood Pressure 143/41 H 157/40 H 155/35 H Pulse Oximetry 100 100 100 Oxygen Delivery Nasal Cannula Nasal Cannula Nasal Cannula Oxygen Flow Rate 2 2 2 03/01/24 16:05 03/01/24 16:25 03/01/24 16:50 Temperature 36.4 C L Pulse Rate 53 L 58 L 61 Respiratory Rate 16 15 18 Blood Pressure 144/37 H 158/41 H 152/36 H Pulse Oximetry 100 98 97 Oxygen Delivery Nasal Cannula Room Air Oxygen Flow Rate 2 03/01/24 17:05 03/01/24 18:03 03/01/24 16:00 Temperature 36.3 C L 36.5 C Pulse Rate 58 L 58 L 57 L Respiratory Rate 16 16 Blood Pressure 140/48 L 150/40 H Pulse Oximetry 99 100 Oxygen Delivery Oxygen Flow Rate 03/01/24 21:26 03/01/24 21:44 03/01/24 20:00 Temperature 36.1 C L Pulse Rate 60 64 Respiratory Rate 16 Blood Pressure 141/44 H Pulse Oximetry 99 Oxygen Delivery Room Air Oxygen Flow Rate
[2024-03-02] MEDS: LIDOCAINE HCL 1% PF INJ 5 ML VIAL INFILTRATE (14:00)
--- NOTE | 2024-03-02 14:37 | PM.IMPN ---
Progress Note: A&P Assessment and Plan (1) Perinephric abscess: Code(s): N15.1 - Renal and perinephric abscess Status: Acute Assessment and Plan: Patient presented to the ED on 02/17/[address] scan showing large right psoas abscess, measuring up to 19.7 cm, which may extend from the inferior pole the right kidney. A 3.4 cm left perirenal collection possibly abscess was also present. She underwent CT-guided right retroperitoneal abscess drain placement on 02/17. BCx were negative. UCx grew EColi that was pansensitive. Abscess Cx also grew EColi that was pansensitive. GenSurg and Urology involved in the case. She was treated with Levaquin and Flagyl. Repeat CT 02/22 showing percutaneous drain in right psoas muscle. Right psoas muscle remains larger than the left suggesting inflammation, but no definite significant residual drainable fluid is identified. Also with a 2.2 x 0.5 cm right and a 2.2 x 1.2 cm left perinephric abscess. Drain removed 02/24 and patient discharged on 02/26 on Levaquin. Patient was at rehab for 1 day before becoming aggressive with staff. She was seen at an outside hospital where repeat imaging showing recurrence of right psoas abscess 2.6 x 3.4 x 13 cm in size and mild leukocytosis. Patient was transferred to [place] for further management. Vanco and Levaquin started but Levaquin was changed to Meropenem 02/28 Renal function normal. WBC 16.8K on admission and was trending down but higher today (may be related to recent drain placement). GenSurg and Urology consulted. Repeat CT A/P here showing reaccumulation of a 18cm right psoas abscess and increase in size of a now 4.2cm left perinephric abscess with suggestion of possible associated left pyelonephritis. Successful CT-guided drainage of left perinephric abscess (10mL removed) and right psoas abscess (35mL removed). Follow up on cultures. CT scan also showed wall thickening of the left proximal ureter concern for infection or malignancy. Urology following so defer to Urology for further management Appreciate Urology and GenSurg input (2) Psoas abscess: Code(s): K68.12 - Psoas muscle abscess Status: Acute Assessment and Plan: As above (3) Metabolic encephalopathy: Code(s): G93.41 - Metabolic encephalopathy Status: Acute Assessment and Plan: Patient with confusion last admission. She had an an abnormal EEG due to presence of moderate diffuse background slowing suggestive generalized cephalopathy. However no definite focal or paroxysmal epileptiform abnormality was seen. Brain MRI showing no acute process. She was seen by neurology and felt the cognitive changes related to metabolic encephalopathy. Head CT showing no acute findings. She remains confused possibly due to recurrent infection. Monitor mental status as we treat her ongoing infection. (4) Paroxysmal A-fib: Code(s): I48.0 - Paroxysmal atrial fibrillation Status: Chronic Assessment and Plan: Patient with pAFib on Toprol XL for rate and rhythm control and Xarelto for stroke prophylaxis Tele showing NSR and bradycardia at times. Xarelto on hold and will resume when okay with surgery. Continue metoprolol 1 Monitor on tele (5) Hypertension: Code(s): I10 - Essential (primary) hypertension Status: Acute Assessment and Plan: Patient's blood pressure was reviewed on 03/02 Blood pressure soft at times but mostly with low diastolic pressure Continue to hold Norvasc and valsartan/HCTZ at this time. Continue lower metoprolol dose Resume other antihypertensive medications as blood pressure requires. (6) Liver lesion: Code(s): K76.9 - Liver disease, unspecified Status: Acute Assessment and Plan: CT scan also shows a few nonspecific small geographic regions of subcapsular enhancement at the caudal aspect of the right hepatic lobe Diferential related to transient hepatic attenuation difference
--- NOTE | 2024-03-02 14:43 | P.CDI_ITS ---
CDI Query Clarification Request BMI 20.4 Nutritional Diagnostic Statement: Severe protein calorie malnutrition related to chronic loss of appetite as evidenced by weight loss 52%/1 year; inadequate intake <75% needs >1 month. Please refer to the comprehensive nutrition assessment for further information. If you agree with the diagnosis of protein calorie malnutrition, Please add to problem list specifying severity of malnutrition: * Mild * Moderate * Severe * Other/Unknown
[2024-03-02] MEDS: SODIUM CHLORIDE 0.9% IV 1,000 ML 60 ML IV CONT (18:31)
[2024-03-02] MEDS: CENTRAL LINE FLUSH 10 ML IV PUSH (20:10)
[2024-03-02 21:11] LABS: Vancomycin Trough 14.5 ug/mL (10.0-20.0)
[2024-03-02] MEDS: VANCOMYCIN 1,000 MG/NS 250 ML 1,000 MG/250 ML BAG 125 MG IVPB (21:23)
[2024-03-03] VITALS (10 sets, daily range): BP systolic 150–166; BP diastolic 37–38; PULSE 55–72; RESP 16–17; TEMP 36.1–36.8; O2SAT 98–99
[2024-03-03 05:32] LABS: Basophils Percent Auto 0.4 % (0.2-1.2); Eosinophils Absolute Auto 0.5 K/mm3 (0-0.3); Eosinophils Percent Auto 5.1 % (0-4.4); Hematocrit 27.3 % (37.0-47.0); Hemoglobin 8.7 g/dL (12.0-15.0); Immature Granulocyte Absolute 0.04 K/mm3 (0.00-0.031); Immature Granulocyte Percent A 0.4 % (0-0.5); Lymphocytes Absolute Auto 0.97 K/mm3 (0.9-3.2); Lymphocytes Percent Auto 10.8 % (18.3-44.2); Mean Corpuscular HGB Conc 31.9 g/dl (32-36); Mean Corpuscular Hemoglobin 27.8 pg (26-34); Mean Corpuscular Volume 87.2 fl (80-100); Mean Platelet Volume 10.8 fl (7.4-10.4); Monocytes Absolute Auto 0.9 K/mm3 (0.1-0.6); Monocytes Percent Auto 10.4 % (2.6-8.5); Neutrophils Absolute Auto 6.6 K/mm3 (1.3-6.7); Neutrophils Percent Auto 72.9 % (45.5-73.1); Platelet Count Result 246 k/mm3 (150-375); Red Blood Count 3.13 M/mm3 (4.2-5.4); Red Cell Distribution Width 17.6 % (11.5-14.5)
--- NOTE | 2024-03-03 05:36 | WPDUROPN2 ---
Progress Note: A&P Assessment and Plan (1) Perinephric abscess: Code(s): N15.1 - Renal and perinephric abscess Status: Acute (2) Psoas abscess: Code(s): K68.12 - Psoas muscle abscess Status: Acute Assessment and Plan: Tolerating bilat. drains well - minimal output after initial placement. Will plan cysto/bilat. retrograde pyelogram or Friday to investigate potential communication between renal collecting system(s) and perinephric/retroperitoneal abscess. Subjective Subjective Date/Time Seen: 03/03/24 05:36 Interval history: Awake, alert, tolerating drains Review of Systems Review of Systems: All systems reviewed & are unremarkable except as noted in HPI and below Exam Const: General: no acute distress Resp: Effort & Inspection: normal respiratory effort GI: Inspection: non-distended GI Palp: No abdominal tenderness and No Guarding due to palpation present (GI) Auscultation: normal bowel sounds Objective Data Vital Signs Vital Signs: Vital Signs - 24 hr 03/02/24 09:05 03/02/24 08:00 03/02/24 08:00 Temperature Pulse Rate 55 L 57 L Respiratory Rate Blood Pressure Pulse Oximetry Oxygen Delivery Room Air 03/02/24 10:55 03/02/24 11:41 03/02/24 12:00 Temperature Pulse Rate 77 Respiratory Rate Blood Pressure Pulse Oximetry Oxygen Delivery Room Air Room Air 03/02/24 14:00 03/02/24 16:00 03/02/24 20:09 Temperature 97.1 F L Pulse Rate 61 60 64 Respiratory Rate 18 Blood Pressure 147/32 H Pulse Oximetry 96 Oxygen Delivery 03/02/24 20:43 03/02/24 20:00 03/02/24 20:00 Temperature 98.1 F Pulse Rate 65 64 65 Respiratory Rate 16 16 Blood Pressure 148/31 H Pulse Oximetry 97 97 Oxygen Delivery Room Air 03/03/24 00:00 03/03/24 04:00 Temperature Pulse Rate 72 58 L Respiratory Rate Blood Pressure Pulse Oximetry Oxygen Delivery Intake/Output Intake/Output: Intake & Output 02/29/24 03/01/24 03/02/24 03/03/24 23:59 23:59 23:59 23:59 Intake Total 1438 2960 3110 Output Total 925 1200 1000 Balance 513 1760 2110 Meds/Results Medications: Active Medications Generic Name Dose Route Start Last Admin Trade Name Freq PRN Reason Stop Dose Admin Acetaminophen 650 mg 02/29/24 04:32 03/01/24 21:47 Acetaminophen 325 Mg Tablet PO 650 mg Q4H PRN Administration Mild Pain (1-3) or Fever Al Hydrox/Mg Hydrox/Simethicone 30 ml 02/29/24 04:32 Mag Hydrox/Al Hydrox/Simeth 30 Ml Udc PO QID PRN Dyspepsia Allopurinol 300 mg 02/29/24 09:00 03/02/24 09:03 Allopurinol 300 Mg Tablet PO 300 mg DAILY JENNA Administration Ascorbic Acid 500 mg 02/29/24 09:00 03/02/24 09:03 Ascorbic Acid 500 Mg Tablet PO 500 mg QAM JENNA Administration Sodium Chloride 1,000 mls @ 60 mls/hr 02/29/24 04:40 03/02/24 18:31 Normal Saline Iv IV CONT 60 mls/hr .[id number] JENNA Administration Meropenem 1 gm in 100 mls @ 200 mls/hr 02/29/24 10:55 03/02/24 20:39 IVPB Infused Q12HR JENNA Infusion Vancomycin HCl 1,000 mg in 250 mls @ 125 mls/hr 03/02/24 20:00 03/02/24 21:23 Vancomycin 1,000 Mg/Ns 250 Ml IVPB 125 mls/hr Q24H JENNA Administration Magnesium Hydroxide 30 ml 02/29/24 04:32 Magnesium Hydroxide Susp 30 Ml Udc PO DAILY PRN Constipation Metoprolol Tartrate 12.5 mg 03/01/24 21:00 03/02/24 20:09 Metoprolol Tartrate 12.5 Mg Tablet PO 12.5 mg Q12HR JENNA Administration Pantoprazole Sodium 40 mg 03/02/24 09:00 03/02/24 09:03 Pantoprazole Sodium Iv 40 Mg Vial IV PUSH 40 mg QAM JENNA Administration Sodium Chloride 20 ml 03/02/24 15:09 Central Line Flush IV PUSH PRN PRN after blood draws Sodium Chloride 10 ml 03/02/24 15:09 Central Line Flush IV PUSH PRN PRN with TPN bag changes Sodium Chloride 10 ml 03/02/24 22:00 03/02/24 20:10 Central Line Flush IV PUSH 10 ml Q8HR JENNA
[2024-03-03 05:42] LABS: Anion Gap -1 mmol/L (4-12); Blood Urea Nitrogen 10 mg/dL (7-17); Calcium 9.5 mg/dL (8.4-10.2); Carbon Dioxide 24 mmol/L (22-30); Chloride 112 mmol/L (98-107); Estimated CRCL calculation 44 ml/min; Estimated Glomerular Filt Rate > 60; Glucose 107 mg/dL (65-110); Magnesium 1.7 mg/dL (1.6-2.3); Potassium 3.2 mmol/L (3.4-5.0); Sodium 135 mmol/L (137-145)
[2024-03-03] MEDS: CENTRAL LINE FLUSH 10 ML IV PUSH ×3 (05:44→21:20)
[2024-03-03] MEDS: MEROPENEM 1 GM/NS 100 ML 1 GM/100 ML BAG IVPB ×2 (08:55→20:48)
[2024-03-03] MEDS: VITAMIN B COMPLEX CAPSULE 1 CAP PO (08:55)
[2024-03-03] MEDS: PANTOPRAZOLE SODIUM IV 40 MG VIAL IV PUSH (08:55)
[2024-03-03] MEDS: allopurinoL 300 MG TABLET PO (08:55)
[2024-03-03] MEDS: ASCORBIC ACID 500 MG TABLET PO (08:55)
[2024-03-03] MEDS: METOPROLOL TARTRATE 12.5 MG TABLET PO ×2 (08:56→20:48)
--- NOTE | 2024-03-03 10:44 | PM.IMPN ---
Progress Note: A&P Assessment and Plan (1) Metabolic encephalopathy: Code(s): G93.41 - Metabolic encephalopathy Status: Acute (2) Perinephric abscess: Code(s): N15.1 - Renal and perinephric abscess Status: Acute (3) Sepsis with metabolic encephalopathy: Code(s): A41.9 - Sepsis, unspecified organism; R65.20 - Severe sepsis without septic shock; G93.41 - Metabolic encephalopathy Status: Acute (4) Psoas abscess: Code(s): K68.12 - Psoas muscle abscess Status: Acute Plan Renal abscess/metabolic encephalopathy/E coli sepsis IV fluid resuscitation Repeat CBC CMP Two sets of Blood cultures urine cultures grew E coli Wound cultures grew E coli Surgery and Urology consulted drain placed. Right psoas muscle with largely inflamed WBCs 12.6/9 PTT and PT INR TTE is indicated Monitor albumin' Monitoring of mental status. Steroids suggested if septic shock on his positive fluid resuscitation and vasopressors. IV antibiotics Levaquin and Flagyl AFIB Optimize ARNI/ MERLY-inhibitor/Beta-blockers, Toprol statin and antiplatelet therapy continue Xarelto Monitor for RVR and SOB Keeping BMI less than 25 Advised low-salt low carb diet. Echo results noted ANEMIA Hgb POA No reports of bleeding daily H&H 9.2/8.7 Tranfuse if hemoglobin less than 7 Hypokalemia replace potassium 3.2 History of hypertension on amlodipine and valsartan which is on hold will monitor BP 150/50 Liver lesion evaluated by the CT scan may need an MRI once medically stable an outpatient Subjective Date/time seen: 03/03/24 10:44 Interval history: Up in the chair working with therapy denies any complaints Review of Systems Review of Systems: All systems reviewed & are unremarkable except as noted in HPI and below Exam Narrative: GENERAL: Well appearing, no acute distress. HEAD: Normocephalic, atraumatic. NECK: Supple. No adenopathy, no masses. RESPIRATORY: respirations nonlabored. , no rales, wheezing. CARDIOVASCULAR: Regular rate and rhythm without murmurs, . Peripheral pulses 2+ and equal bilaterally. ABDOMINAL: Soft, nontender, nondistended, drains in place MUSCULOSKELETAL: no Epigastric and no hypochondrial tenderness SKIN: Warm, dry, NEURO: A&O X3. Moves all extremities Objective Data Vital Signs Vital Signs: Vital Signs - 24 hr 03/02/24 10:55 03/02/24 11:41 03/02/24 12:00 Temperature Pulse Rate 77 Respiratory Rate Blood Pressure Pulse Oximetry Oxygen Delivery Room Air Room Air 03/02/24 14:00 03/02/24 16:00 03/02/24 20:09 Temperature 36.2 C L Pulse Rate 61 60 64 Respiratory Rate 18 Blood Pressure 147/32 H Pulse Oximetry 96 Oxygen Delivery 03/02/24 20:43 03/02/24 20:00 03/02/24 20:00 Temperature 36.7 C Pulse Rate 65 64 65 Respiratory Rate 16 16 Blood Pressure 148/31 H Pulse Oximetry 97 97 Oxygen Delivery Room Air 03/03/24 00:00 03/03/24 04:00 03/03/24 05:54 Temperature 36.8 C Pulse Rate 72 58 L 57 L Respiratory Rate 16 Blood Pressure 150/37 H Pulse Oximetry 98 Oxygen Delivery 03/03/24 08:56 Temperature Pulse Rate 57 L Respiratory Rate Blood Pressure Pulse Oximetry Oxygen Delivery Intake/Output Intake/Output: Intake & Output 02/29/24 03/01/24 03/02/24 03/03/24 23:59 23:59 23:59 23:59 Intake Total 1438 2960 3110 240 Output Total 925 1200 1000 1100 Balance 513 1760 2110 -860 Meds/Results Medications: Active Medications Generic Name Dose Route Start Last Admin Trade Name Freq PRN Reason Stop Dose Admin Acetaminophen 650 mg 02/29/24 04:32 03/01/24 21:47 Acetaminophen 325 Mg Tablet PO 650 mg Q4H PRN Administration Mild Pain (1-3) or Fever Al Hydrox/Mg Hydrox/Simethicone 30 ml 02/29/24 04:32 Mag Hydrox/Al Hydrox/Simeth 30 Ml Udc PO QID PRN Dyspepsia Allopurinol 300 mg 02/29/24 09:00 03/03/24 08:55 Allopurinol 300 Mg Tablet PO 30
[2024-03-03 11:28] LABS: Hematocrit 34.3 % (37.0-47.0); Hemoglobin 10.5 g/dL (12.0-15.0); Mean Corpuscular HGB Conc 30.6 g/dl (32-36); Mean Corpuscular Hemoglobin 27.9 pg (26-34); Mean Corpuscular Volume 91.2 fl (80-100); Mean Platelet Volume 11.1 fl (7.4-10.4); Platelet Count Result 232 k/mm3 (150-375); Red Blood Count 3.76 M/mm3 (4.2-5.4); White Blood Count 11.3 K/mm3 (4.5-10.0)
--- NOTE | 2024-03-03 13:03 | PM.PNGS ---
Progress Note: A&P Assessment and Plan (1) Perinephric abscess: Code(s): N15.1 - Renal and perinephric abscess Status: Acute Assessment and Plan: doing well, cont drains/abx, urology planning cysto in next few days Subjective Subjective Date/Time Seen: 03/03/24 13:03 Interval history: no acute issues, small amount of drainage from drains, much more alert Review of Systems Review of Systems: All systems reviewed & are unremarkable except as noted in HPI and below Exam Const: General: cooperative, comfortable, no acute distress and ill appearing Resp: Auscultation: diminished lung sounds Cardio: Rate: regular rate Rhythm: regular rhythm GI: Inspection: normal to inspection and non-distended GI Palp: No abdominal tenderness and Yes Soft to palpation Other: drains x 2 c scant drainage Objective Data Vital Signs Vital Signs: Vital Signs - 24 hr 03/02/24 14:00 03/02/24 16:00 03/02/24 20:09 Temperature 36.2 C L Pulse Rate 61 60 64 Respiratory Rate 18 Blood Pressure 147/32 H Pulse Oximetry 96 Oxygen Delivery 03/02/24 20:43 03/02/24 20:00 03/02/24 20:00 Temperature 36.7 C Pulse Rate 65 64 65 Respiratory Rate 16 16 Blood Pressure 148/31 H Pulse Oximetry 97 97 Oxygen Delivery Room Air 03/03/24 00:00 03/03/24 04:00 03/03/24 05:54 Temperature 36.8 C Pulse Rate 72 58 L 57 L Respiratory Rate 16 Blood Pressure 150/37 H Pulse Oximetry 98 Oxygen Delivery 03/03/24 08:56 03/03/24 08:00 03/03/24 08:00 Temperature Pulse Rate 57 L 57 L Respiratory Rate Blood Pressure Pulse Oximetry Oxygen Delivery Room Air Intake/Output Intake/Output: Intake & Output 02/29/24 03/01/24 03/02/24 03/03/24 23:59 23:59 23:59 23:59 Intake Total 1438 2960 3110 460 Output Total 925 1200 1000 1100 Balance 513 1760 2110 -640 Meds/Results Medications: Active Medications Generic Name Dose Route Start Last Admin Trade Name Freq PRN Reason Stop Dose Admin Acetaminophen 650 mg 02/29/24 04:32 03/01/24 21:47 Acetaminophen 325 Mg Tablet PO 650 mg Q4H PRN Administration Mild Pain (1-3) or Fever Al Hydrox/Mg Hydrox/Simethicone 30 ml 02/29/24 04:32 Mag Hydrox/Al Hydrox/Simeth 30 Ml Udc PO QID PRN Dyspepsia Allopurinol 300 mg 02/29/24 09:00 03/03/24 08:55 Allopurinol 300 Mg Tablet PO 300 mg DAILY JENNA Administration Ascorbic Acid 500 mg 02/29/24 09:00 03/03/24 08:55 Ascorbic Acid 500 Mg Tablet PO 500 mg QAM JENNA Administration Sodium Chloride 1,000 mls @ 60 mls/hr 02/29/24 04:40 03/03/24 08:58 Normal Saline Iv IV CONT Not Given .[id number] JENNA Meropenem 1 gm in 100 mls @ 200 mls/hr 02/29/24 10:55 03/03/24 09:25 IVPB Infused Q12HR JENNA Infusion Vancomycin HCl 1,000 mg in 250 mls @ 125 mls/hr 03/02/24 20:00 03/02/24 21:23 Vancomycin 1,000 Mg/Ns 250 Ml IVPB 125 mls/hr Q24H JENNA Administration Magnesium Hydroxide 30 ml 02/29/24 04:32 Magnesium Hydroxide Susp 30 Ml Udc PO DAILY PRN Constipation Metoprolol Tartrate 12.5 mg 03/01/24 21:00 03/03/24 08:56 Metoprolol Tartrate 12.5 Mg Tablet PO 12.5 mg Q12HR JENNA Administration Pantoprazole Sodium 40 mg 03/02/24 09:00 03/03/24 08:55 Pantoprazole Sodium Iv 40 Mg Vial IV PUSH 40 mg QAM JENNA Administration Sodium Chloride 20 ml 03/02/24 15:09 Central Line Flush IV PUSH PRN PRN after blood draws Sodium Chloride 10 ml 03/02/24 15:09 Central Line Flush IV PUSH PRN PRN with TPN bag changes Sodium Chloride 10 ml 03/02/24 22:00 03/03/24 05:44 Central Line Flush IV PUSH 10 ml Q8HR JENNA Administration Vitamin B Complex 1 cap 02/29/24 09:00 03/03/24 08:55 Vitamin B Complex Capsule PO 1 cap DAILY JENNA Administration Radiology Results: ITS Impressions Abdomen/Pelvis CT 03/01/24 09:53 IMPRESSION: 1. Reaccumulation of a 18 x 5.3
--- NOTE | 2024-03-03 14:08 | PCOTNOTE ---
Attempted to see Patient for P.M. treatment session. Patient declined, stated she just recently laid down, does not feel well and is trying to rest . Patient stated all needs met and come back in the morning.
[2024-03-03] MEDS: SODIUM CHLORIDE 0.9% IV 1,000 ML 60 ML IV CONT (14:46)
[2024-03-03] MEDS: VANCOMYCIN 1,000 MG/NS 250 ML 1,000 MG/250 ML BAG 125 MG IVPB (21:22)
[2024-03-04] VITALS (18 sets, daily range): BP systolic 154–192; BP diastolic 33–48; PULSE 48–72; RESP 14–18; TEMP 36–36.6; O2SAT 96–100
[2024-03-04] MEDS: CENTRAL LINE FLUSH 10 ML IV PUSH ×3 (05:17→20:54)
[2024-03-04 05:21] LABS: Hematocrit 26.5 % (37.0-47.0); Hemoglobin 8.5 g/dL (12.0-15.0); Mean Corpuscular HGB Conc 32.1 g/dl (32-36); Mean Corpuscular Hemoglobin 27.9 pg (26-34); Mean Corpuscular Volume 86.9 fl (80-100); Mean Platelet Volume 10.9 fl (7.4-10.4); Platelet Count Result 241 k/mm3 (150-375); Red Blood Count 3.05 M/mm3 (4.2-5.4); Red Cell Distribution Width 17.9 % (11.5-14.5)
[2024-03-04] MEDS: ACETAMINOPHEN 325 MG TABLET 650 MG PO ×2 (05:31→20:53)
[2024-03-04 05:39] LABS: Alanine Aminotransferase 16 U/L (6-35); Alkaline Phosphatase 82 U/L (38-126); Anion Gap 2 mmol/L (4-12); Aspartate Amino Transferase 31 U/L (14-36); Bilirubin,Total 0.4 mg/dL (0.2-1.3); Blood Urea Nitrogen 11 mg/dL (7-17); Calcium 9.4 mg/dL (8.4-10.2); Carbon Dioxide 23 mmol/L (22-30); Chloride 114 mmol/L (98-107); Estimated CRCL calculation 51 ml/min; Estimated Glomerular Filt Rate > 60; Glucose 88 mg/dL (65-110); Potassium 2.9 mmol/L (3.4-5.0); Sodium 139 mmol/L (137-145)
--- NOTE | 2024-03-04 06:17 | WPDHPUPDATE1 ---
History and Physical Update Update Date/Time: 03/04/24 06:17 History and Physical has been reviewed, including an updated exam of the patient. There are NO changes in the patient's condition. Risks, benefits, and alternatives have been discussed and questions answered. Patient agrees to proceed with procedure.
[2024-03-04] MEDS: PANTOPRAZOLE SODIUM IV 40 MG VIAL IV PUSH (08:57)
[2024-03-04] MEDS: allopurinoL 300 MG TABLET PO (08:57)
[2024-03-04] MEDS: VITAMIN B COMPLEX CAPSULE 1 CAP PO (08:57)
[2024-03-04] MEDS: ASCORBIC ACID 500 MG TABLET PO (08:57)
[2024-03-04] MEDS: METOPROLOL TARTRATE 12.5 MG TABLET PO ×2 (08:58→20:53)
[2024-03-04] MEDS: POTASSIUM CHLORIDE 20 MEQ PACKET (FOR LIQUID) 40 MEQ PO (08:58)
[2024-03-04] MEDS: MEROPENEM 1 GM/NS 100 ML 1 GM/100 ML BAG IVPB (09:25)
--- NOTE | 2024-03-04 10:13 | PM.PNGS ---
Progress Note: A&P Assessment and Plan (1) Perinephric abscess: Code(s): N15.1 - Renal and perinephric abscess Status: Acute Assessment and Plan: S/p percutaneous drainage x 2 to right psoas abscess and left perinephric abscess. WBC normalized. Cont to monitor drains, continue antibiotics, urology planning cysto today. Plan I have discussed the patient's case and plan of care with Dr. Saenz. Subjective Subjective Date/Time Seen: 03/04/24 10:13 Patient reports: afebrile Interval history: No specific complaints today. She still feels tired, but no pain at this time. Urology has plan for cysto today. Exam Const: General: no acute distress and tired appearing GI: Inspection: normal to inspection and non-distended GI Palp: Yes Soft to palpation, No Tenderness to palpation present (GI) and No Guarding due to palpation present (GI) Other: Posterior perc drains x 2 with minimal drainage, one has more serous drainage today and the other still with some still slightly purulent drainage Urinary Catheter: Urinary Catheter: patent and draining Objective Data Vital Signs Vital Signs: Vital Signs - 24 hr 03/03/24 14:15 03/03/24 12:00 03/03/24 16:00 Temperature 97.0 F L Pulse Rate 61 55 L 59 L Respiratory Rate 17 Blood Pressure 166/38 H Pulse Oximetry 99 Oxygen Delivery 03/03/24 20:48 03/03/24 20:00 03/03/24 20:00 Temperature Pulse Rate 55 L 61 55 L Respiratory Rate 17 Blood Pressure Pulse Oximetry 99 Oxygen Delivery Room Air 03/04/24 00:00 03/04/24 04:00 03/04/24 08:58 Temperature Pulse Rate 59 L 50 L 54 L Respiratory Rate Blood Pressure Pulse Oximetry Oxygen Delivery 03/04/24 08:00 Temperature Pulse Rate Respiratory Rate Blood Pressure Pulse Oximetry Oxygen Delivery Room Air Intake/Output Intake/Output: Intake & Output 03/01/24 03/02/24 03/03/24 03/04/24 23:59 23:59 23:59 23:59 Intake Total 2960 3360 2330 Output Total 1200 1000 2000 550 Balance 1760 2360 330 -550 Meds/Results Medications: Active Medications Generic Name Dose Route Start Last Admin Trade Name Freq PRN Reason Stop Dose Admin Acetaminophen 650 mg 02/29/24 04:32 03/04/24 05:31 Acetaminophen 325 Mg Tablet PO 650 mg Q4H PRN Administration Mild Pain (1-3) or Fever Al Hydrox/Mg Hydrox/Simethicone 30 ml 02/29/24 04:32 Mag Hydrox/Al Hydrox/Simeth 30 Ml Udc PO QID PRN Dyspepsia Allopurinol 300 mg 02/29/24 09:00 03/04/24 08:57 Allopurinol 300 Mg Tablet PO 300 mg DAILY JENNA Administration Ascorbic Acid 500 mg 02/29/24 09:00 03/04/24 08:57 Ascorbic Acid 500 Mg Tablet PO 500 mg QAM JENNA Administration Fentanyl Citrate 25 mcg 03/03/24 15:44 Fentanyl Citrate Inj (*Crx) 100 Mcg/2 Ml Vial IV PUSH Q2M PRN Pain Sodium Chloride 1,000 mls @ 60 mls/hr 02/29/24 04:40 03/03/24 14:46 Normal Saline Iv IV CONT 60 mls/hr .[id number] JENNA Administration Meropenem 1 gm in 100 mls @ 200 mls/hr 02/29/24 10:55 03/04/24 09:25 IVPB 200 mls/hr Q12HR JENNA Administration Vancomycin HCl 1,000 mg in 250 mls @ 125 mls/hr 03/02/24 20:00 03/03/24 23:22 Vancomycin 1,000 Mg/Ns 250 Ml IVPB Infused Q24H JENNA Infusion Lactated Ringer's 1,000 mls @ 30 mls/hr 03/03/24 15:45 Lr - Lactated Ringers Iv IV CONT .Q24H JENNA Lactated Ringer's 1,000 mls @ 30 mls/hr 03/03/24 15:45 Lr - Lactated Ringers Iv IV CONT .Q24H JENNA Magnesium Hydroxide 30 ml 02/29/24 04:32 Magnesium Hydroxide Susp 30 Ml Udc PO DAILY PRN Constipation Metoprolol Tartrate 12.5 mg 03/01/24 21:00 03/04/24 08:58 Metoprolol Tartrate 12.5 Mg Tablet PO 12.5 mg Q12HR JENNA Administration Ondansetron HCl 4 mg 03/03/24 15:44 Ondansetron Inj 4 Mg/2 Ml Vial IV PUSH ONCE PRN Nausea Pantoprazole Sodium 40 mg 03/02/24 09:00 06/13/24 08:57 Pantoprazole Sodium Iv 40 Mg V
--- NOTE | 2024-03-04 10:54 | PM.IMPN ---
Progress Note: A&P Assessment and Plan (1) Metabolic encephalopathy: Code(s): G93.41 - Metabolic encephalopathy Status: Acute (2) Perinephric abscess: Code(s): N15.1 - Renal and perinephric abscess Status: Acute (3) Sepsis with metabolic encephalopathy: Code(s): A41.9 - Sepsis, unspecified organism; R65.20 - Severe sepsis without septic shock; G93.41 - Metabolic encephalopathy Status: Acute (4) Psoas abscess: Code(s): K68.12 - Psoas muscle abscess Status: Acute Plan Renal abscess/metabolic encephalopathy/E coli sepsis IV fluid resuscitation Repeat CBC CMP urine cultures grew E coli Wound cultures grew E coli Surgery and Urology consulted drain in place Right psoas muscle with largely inflamed WBCs Urology urology to do cystoscopy today as scheduled IV antibiotics meropenem and vancomycin AFIB Optimize ARNI/ MERLY-inhibitor/Beta-blockers, Toprol statin and antiplatelet therapy continue Xarelto Monitor for RVR and SOB Echo results noted ANEMIA Hgb POA No reports of bleeding daily H&H 9.2/8.7/8.5 Tranfuse if hemoglobin less than 7 Hypokalemia replace potassium 3.2/2.9 History of hypertension on amlodipine which is on hold will restart valsartan will monitor BP 169/70 Liver lesion evaluated by the CT scan may need an MRI once medically stable an outpatient Subjective Date/time seen: 03/04/24 10:54 Interval history: Patient doing well very tearful today was not happy with the colostomy bag drain has been removed with like to go home. Spent time with the patient answered and addressed her anxiety Review of Systems Review of Systems: All systems reviewed & are unremarkable except as noted in HPI and below Exam Narrative: GENERAL: Well appearing, no acute distress. HEAD: Normocephalic, atraumatic. NECK: Supple. No adenopathy, no masses. RESPIRATORY: respirations nonlabored. , no rales, wheezing. CARDIOVASCULAR: Regular rate and rhythm without murmurs, . Peripheral pulses 2+ and equal bilaterally. ABDOMINAL: Soft, nontender, nondistended, drains MUSCULOSKELETAL: no Epigastric and no hypochondrial tenderness SKIN: Warm, dry, NEURO: A&O X3. Moves all extremities Objective Data Vital Signs Vital Signs: Vital Signs - 24 hr 03/03/24 14:15 03/03/24 12:00 03/03/24 16:00 Temperature 36.1 C L Pulse Rate 61 55 L 59 L Respiratory Rate 17 Blood Pressure 166/38 H Pulse Oximetry 99 Oxygen Delivery 03/03/24 20:48 03/03/24 20:00 03/03/24 20:00 Temperature Pulse Rate 55 L 61 55 L Respiratory Rate 17 Blood Pressure Pulse Oximetry 99 Oxygen Delivery Room Air 03/04/24 00:00 03/04/24 04:00 03/04/24 08:58 Temperature Pulse Rate 59 L 50 L 54 L Respiratory Rate Blood Pressure Pulse Oximetry Oxygen Delivery 03/04/24 08:00 Temperature Pulse Rate Respiratory Rate Blood Pressure Pulse Oximetry Oxygen Delivery Room Air Intake/Output Intake/Output: Intake & Output 03/01/24 03/02/24 03/03/24 03/04/24 23:59 23:59 23:59 23:59 Intake Total 2960 3360 2330 Output Total 1200 1000 2000 550 Balance 1760 2360 330 -550 Meds/Results Medications: Active Medications Generic Name Dose Route Start Last Admin Trade Name Freq PRN Reason Stop Dose Admin Acetaminophen 650 mg 02/29/24 04:32 03/04/24 05:31 Acetaminophen 325 Mg Tablet PO 650 mg Q4H PRN Administration Mild Pain (1-3) or Fever Al Hydrox/Mg Hydrox/Simethicone 30 ml 02/29/24 04:32 Mag Hydrox/Al Hydrox/Simeth 30 Ml Udc PO QID PRN Dyspepsia Allopurinol 300 mg 02/29/24 09:00 03/04/24 08:57 Allopurinol 300 Mg Tablet PO 300 mg DAILY JENNA Administration Ascorbic Acid 500 mg 02/29/24 09:00 03/04/24 08:57 Ascorbic Acid 500 Mg Tablet PO 500 mg QAM JENNA Administration Fentanyl Citrate 25 mcg 03/03/24 15:44 Fentanyl Citrate Inj (*Crx) 100 Mcg/2 Ml Vial IV PUSH Q2M
--- NOTE | 2024-03-04 10:54 | PCNFU ---
Nutrition Follow-Up Complete: Severe protein calorie malnutrition related to chronic loss of appetite as evidenced by weight loss 52%/1 year; inadequate intake <75% needs >1 month. Goal:Diet orders Improve PO intake when diet is advanced Pt is NPO today for a procedure Pt current nutrition is NPO, to resume to regular post procedure. Nutrition recommendation: Resume regular diet, Add Ensure Enlive BID for an additional 350kcals, 20g protein per shake Last recorded weight is 54 kg. Bowel Motility: +BM 03/04 Labs Reviewed: Hgb:8.5, HCT:26.5, Alb:2.0, K:2.9, Cr:0.6 Meds Noted: lactated ringers, zofran, protonix, KCL Skin: No skin issues noted Additional Notes: Pt NPO for a procedure late today. Was on a regular diet with improved intake, and was drinking Ensure Clear. Would like to change to regular Ensure when diet is resumed. Agree with orders. Will Add Ensure Enlive BID once regular diet is resumed Monitoring intakes, weights, labs, plan of care, diet orders Follow up in 3 days
--- NOTE | 2024-03-04 11:21 | PCPTNOTE ---
Attempted to see aptient for PT, however patient declined due to not feeling well. Patient reported she has an upset stomach and did not want to work with PT.
[2024-03-04] MEDS: SODIUM CHLORIDE 0.9% IV 1,000 ML 60 ML IV CONT (12:35)
[2024-03-04 14:27] LABS: Potassium 3.5 mmol/L (3.4-5.0)
--- NOTE | 2024-03-04 14:53 | WPDANESEPPF ---
Anes - Initial Pre Proc Eval Procedure: Operation Date: 03/01/24 14:15 Proposed Procedures p Radiology Procedure Mod.Sed.Rn- Abscess Drain Placement Times Two - Rodriguez Guan MD Operation Date: 03/04/24 17:00 Proposed Procedures p Cystoscopy, Bilateral Retrograde Pyelogram - Manuel Perez MD Date/Time: 03/04/24 14:53 Surgeon: Arsenio Doyle MD Pre Op Diagnosis: Altered mental status Patient Data Age: 83 Gender: F Height: 1.63 m Weight: 54 kg Last Vital Signs Temp 36.1 C L 03/03/24 14:15 Pulse 51 L 03/04/24 12:00 Resp 17 03/03/24 20:00 BP 166/38 H 03/03/24 14:15 Pulse Ox 99 03/03/24 20:00 O2 Del Method Room Air 03/04/24 08:00 O2 Flow Rate 2 03/01/24 16:05 Allergies Allergy/AdvReac Type Severity Reaction Status Date / Time atorvastatin Allergy Muscle Pain Verified 02/17/24 22:02 Cephalosporins Allergy Unknown Verified 02/17/24 16:05 clindamycin Allergy Unknown Verified 02/17/24 16:05 codeine Allergy Unknown Verified 02/17/24 16:05 meperidine Allergy Unknown Verified 02/17/24 16:05 morphine Allergy Unknown Verified 02/17/24 16:05 Penicillins Allergy Fainting Verified 02/17/24 22:01 propoxyphene Allergy Unknown Verified 02/17/24 16:05 rosuvastatin Allergy Unknown Verified 02/17/24 22:03 Sulfa (Sulfonamide Allergy Other Verified 02/17/24 22:05 Antibiotics) tramadol Allergy Unknown Verified 02/17/24 16:05 Home Medications Medication Instructions Recorded Confirmed Type alendronate-vitamin D3 1,000 unit PO DAILY 02/27/23 02/29/24 History allopurinol 300 mg tablet 300 mg PO DAILY 02/27/23 02/29/24 History hydralazine 100 mg tablet 100 mg PO DAILY 02/27/23 02/29/24 History rivaroxaban 15 mg tablet (Xarelto) 15 mg PO DAILY 02/27/23 02/29/24 History valsartan 80 1 tablet PO DAILY 02/27/23 02/29/24 History mg-hydrochlorothiazide 12.5 mg tablet vitamin B complex 1 tablet PO DAILY 02/18/24 02/29/24 History amlodipine 10 mg tablet 10 mg PO DAILY 02/29/24 02/29/24 History ascorbic acid (vitamin C) 500 mg 500 mg PO DAILY 02/29/24 02/29/24 History capsule,extended release metoprolol succinate 50 mg 50 mg PO DAILY 02/29/24 02/29/24 History tablet,extended release 24 hr (Toprol XL) Laboratory Tests 03/04/24 03/04/24 05:05 14:06 WBC 7.0 K/mm3 (4.5-10.0) RBC 3.05 L M/mm3 (4.2-5.4) Hgb 8.5 L g/dL (12.0-15.0) Hct 26.5 L % (37.0-47.0) MCV 86.9 fl (80-100) MCH 27.9 pg (26-34) MCHC 32.1 g/dl (32-36) RDW 17.9 H % (11.5-14.5) Plt Count 241 k/mm3 (150-375) MPV 10.9 H fl (7.4-10.4) Sodium 139 mmol/L (137-145) Potassium 2.9 L mmol/L 3.5 mmol/L (3.4-5.0) (3.4-5.0) Chloride 114 H mmol/L (98-107) Carbon Dioxide 23 mmol/L (22-30) Anion Gap 2 L mmol/L (4-12) BUN 11 mg/dL (7-17) Creatinine 0.60 L mg/dL (0.7-1.0) Estim Creat Clear Calc 51 ml/min Estimated GFR > 60 (59 - ) Glucose 88 mg/dL (65-110) Calcium 9.4 mg/dL (8.4-10.2) Total Bilirubin 0.4 mg/dL (0.2-1.3) AST 31 U/L (14-36) ALT 16 U/L (6-35) Alkaline Phosphatase 82 U/L (38-126) Total Protein 4.0 L g/dL (6.3-8.2) Albumin 2.0 L g/dL (3.5-5.1) Patient hx anesthesia problems: none Family hx anesthesia problems: none Results Review: All pre-operative results and documents have been reviewed as part of the pre-operative evaluation. [facility] Past Medical History Medical History A-fib Encounter for removal of skin lesion Gout Hypertension Osteoporosis Paroxysmal A-fib Sepsis with metabolic encephalopathy Skin cancer Surgical History Surgical History H/O cataract extraction H/O lumpectomy H/O tubal ligation History of appendectomy History of removal of pigm
[2024-03-04] MEDS: LACTATED RINGERS 1,000 ML 30 ML IV CONT (15:09)
[2024-03-04] MEDS: LIDOCAINE HCL 2% GEL UROJET 10 ML PKG MUCOUS MEM (15:38)
--- NOTE | 2024-03-04 16:07 | P.OP_ITS ---
Procedure Note - Detailed Date of Procedure 03/04/24 Pre-op Diagnosis Altered mental status Post-op Diagnosis Same Procedure Performed Cystoscopy, bilateral retrograde pyelography, right ureteroscopy, right ureteral stent placement Surgeon Manuel Perez MD Anesthesia MAC Description of Procedure patient brought to the operative suite where she has prepped draped in routine sterile fashion while in dorsal lithotomy position. 2% xylocaine jelly was introduced intraurethrally and systemic sedation was administered per the anesthesia department. Cystoscopy was undertaken with a 19 F rigid cystoscope. Bladder neck and urethra are endoscopically normal. Bladder bladder mucosa was mildly hyperemic consistent with a recent bacterial infection. She has a single orthotopic ureteral orifice bilaterally. An 8 F bulb-tipped catheter was used to obtain left retrograde pyelogram which appeared normal. There was no apparent communication of the collecting system to her left perinephric drain. On the right side the retrograde pyelogram was decidedly abnormal with diffuse polypoid filling defects throughout the course of the collecting system and ureter consistent with marked ureteral it is. I did right ureteroscopy with 7.5 F flexible ureteral scope after dilating the distal ureter with an 8 F 10 F dilator over a 0.035 in glidewire. Ureteroscopy was consistent with diffuse ureteritis. Again, there was no obvious connection of the collecting system to her right retroperitoneal drain. 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 Because of this diffuse ureteritis, however, I am suspicious that there may be a small communication. I opted to place a ureteral stent and drain her bladder to prov ace for maximal drainage. A 4.8 F stent was positioned with the proximal coil in her right collecting system and distal coil in her bladder. The scope was removed and a Rodríguez catheter was placed to straight drainage. Patient tolerated the procedure well. Drains Yes Packing Yes Pathology Yes
[2024-03-04] MEDS: levoFLOXacin 750 MG TABLET PO (20:50)
[2024-03-04] MEDS: metroNIDAZOLE 500 MG TABLET PO (20:54)
[2024-03-05] VITALS (11 sets, daily range): BP systolic 158–172; BP diastolic 34–65; PULSE 48–79; RESP 16–20; TEMP 36–36.6; O2SAT 96–99
[2024-03-05] MEDS: metroNIDAZOLE 500 MG TABLET PO ×3 (05:13→20:21)
[2024-03-05] MEDS: CENTRAL LINE FLUSH 20 ML IV PUSH (05:14)
[2024-03-05] MEDS: CENTRAL LINE FLUSH 10 ML IV PUSH ×3 (05:14→20:21)
[2024-03-05 06:15] LABS: Alanine Aminotransferase 18 U/L (6-35); Albumin Level 2.1 g/dL (3.5-5.1); Alkaline Phosphatase 80 U/L (38-126); Anion Gap 2 mmol/L (4-12); Aspartate Amino Transferase 30 U/L (14-36); Bilirubin,Total 0.5 mg/dL (0.2-1.3); Blood Urea Nitrogen 9 mg/dL (7-17); Calcium 9.8 mg/dL (8.4-10.2); Carbon Dioxide 22 mmol/L (22-30); Chloride 113 mmol/L (98-107); Estimated CRCL calculation 51 ml/min; Estimated Glomerular Filt Rate > 60; Glucose 103 mg/dL (65-110); Potassium 3.1 mmol/L (3.4-5.0); Sodium 137 mmol/L (137-145)
--- NOTE | 2024-03-05 06:24 | WPDUROPN2 ---
Progress Note: A&P Assessment and Plan (1) Perinephric abscess: Code(s): N15.1 - Renal and perinephric abscess Status: Acute (2) Psoas abscess: Code(s): K68.12 - Psoas muscle abscess Status: Acute Assessment and Plan: Interesting finding yesterday -> marked infection right ureter suggesting possible communication right renal collecting system with right psoas abscess (although no clear extravasation of contrast form collecting system into abscess cavity or drain). Will plan to leave right stent and Rodríguez catheter x2 months to provide maximal drainage right kidney. Will plan to leave right psoas drain x4-6 weeks. Left perinephric drain can be removed 2 weeks given small abscess on that side. Subjective Subjective Date/Time Seen: 03/05/24 06:24 Interval history: Comfortable, seems to be tolerating right ureteral stent well. Review of Systems Review of Systems: All systems reviewed & are unremarkable except as noted in HPI and below Exam Const: General: no acute distress Resp: Effort & Inspection: normal respiratory effort GI: Inspection: non-distended GI Palp: No abdominal tenderness and No Guarding due to palpation present (GI) Auscultation: normal bowel sounds Objective Data Vital Signs Vital Signs: Vital Signs - 24 hr 03/04/24 08:58 03/04/24 08:00 03/04/24 08:00 Temperature Pulse Rate 54 L 48 L Respiratory Rate Blood Pressure Pulse Oximetry Oxygen Delivery Room Air Oxygen Flow Rate 03/04/24 12:00 03/04/24 14:52 03/04/24 15:00 Temperature 97.8 F 97.8 F Pulse Rate 51 L 56 L 56 L Respiratory Rate 14 14 Blood Pressure 184/38 H 184/38 H Pulse Oximetry 100 100 Oxygen Delivery Room Air Room Air Oxygen Flow Rate 03/04/24 15:57 03/04/24 16:10 03/04/24 16:25 Temperature 97.3 F L Pulse Rate 48 L 50 L 51 L Respiratory Rate 18 14 17 Blood Pressure 191/36 H 186/47 H 192/44 H Pulse Oximetry 100 100 97 Oxygen Delivery Simple Face Mask Simple Face Mask Room Air Oxygen Flow Rate 8 8 03/04/24 16:40 03/04/24 16:50 03/04/24 17:12 Temperature 97.8 F 97.8 F 96.8 F L Pulse Rate 55 L 57 L 54 L Respiratory Rate 15 16 16 Blood Pressure 189/44 H 189/44 H 154/37 H Pulse Oximetry 98 96 99 Oxygen Delivery Room Air Room Air Oxygen Flow Rate 03/04/24 17:30 03/04/24 17:52 03/04/24 19:26 Temperature 96.9 F L 97.1 F L Pulse Rate 56 L 58 L Respiratory Rate 16 16 Blood Pressure 181/34 H 176/33 H Pulse Oximetry 98 99 Oxygen Delivery Room Air Oxygen Flow Rate 03/04/24 20:40 03/04/24 20:53 03/04/24 20:00 Temperature 97.0 F L Pulse Rate 68 68 72 Respiratory Rate 18 Blood Pressure 181/48 H Pulse Oximetry 99 Oxygen Delivery Oxygen Flow Rate 03/05/24 00:00 03/05/24 04:03 03/05/24 04:00 Temperature 96.9 F L Pulse Rate 53 L 52 L 53 L Respiratory Rate 18 Blood Pressure 158/65 H Pulse Oximetry 99 Oxygen Delivery Oxygen Flow Rate Intake/Output Intake/Output: Intake & Output 03/02/24 03/03/24 03/04/24 03/05/24 23:59 23:59 23:59 23:59 Intake Total 3360 2330 1460 240 Output Total 1000 2000 1250 540 Balance 2360 330 210 -300 Meds/Results Medications: Active Medications Generic Name Dose Route Start Last Admin Trade Name Freq PRN Reason Stop Dose Admin Acetaminophen 650 mg 02/29/24 04:32 03/04/24 20:53 Acetaminophen 325 Mg Tablet PO 650 mg Q4H PRN Administration Mild Pain (1-3) or Fever Al Hydrox/Mg Hydrox/Simethicone 30 ml 02/29/24 04:32 Mag Hydrox/Al Hydrox/Simeth 30 Ml Udc PO QID PRN Dyspepsia Allopurinol 300 mg 02/29/24 09:00 03/04/24 08:57 Allopurinol 300 Mg Tablet PO 300 mg DAILY JENNA Administration Ascorbic Acid 500 mg 02/29/24 09:00 03/04/24 08:57 Ascorbic Acid 500 Mg Tablet PO 500 mg QAM JENNA Administration Hydrochlorothiazide 12.5 mg 03/04/24 11:10 03/04/24 12:33 Hydrochlorothiazide 12.5 Mg Capsu
[2024-03-05] MEDS: allopurinoL 300 MG TABLET PO (09:34)
[2024-03-05] MEDS: METOPROLOL TARTRATE 12.5 MG TABLET PO ×2 (09:35→20:21)
[2024-03-05] MEDS: VALSARTAN 80 MG TABLET PO (09:35)
[2024-03-05] MEDS: PANTOPRAZOLE SODIUM IV 40 MG VIAL IV PUSH (09:35)
[2024-03-05] MEDS: VITAMIN B COMPLEX CAPSULE 1 CAP PO (09:35)
[2024-03-05] MEDS: hydroCHLOROthiazide 12.5 MG CAPSULE PO (09:35)
[2024-03-05] MEDS: ASCORBIC ACID 500 MG TABLET PO (09:35)
[2024-03-05] MEDS: POTASSIUM CHLORIDE 20 MEQ PACKET (FOR LIQUID) 40 MEQ PO (09:36)
[2024-03-05] MEDS: SODIUM CHLORIDE 0.9% IV 1,000 ML 60 ML IV CONT (09:44)
--- NOTE | 2024-03-05 09:53 | PM.IMPN ---
Progress Note: A&P Assessment and Plan (1) Metabolic encephalopathy: Code(s): G93.41 - Metabolic encephalopathy Status: Acute (2) Perinephric abscess: Code(s): N15.1 - Renal and perinephric abscess Status: Acute (3) Sepsis with metabolic encephalopathy: Code(s): A41.9 - Sepsis, unspecified organism; R65.20 - Severe sepsis without septic shock; G93.41 - Metabolic encephalopathy Status: Acute (4) Psoas abscess: Code(s): K68.12 - Psoas muscle abscess Status: Acute Plan Renal abscess/metabolic encephalopathy/E coli sepsis IV fluid resuscitation Repeat CBC CMP urine cultures grew E coli Wound cultures grew E coli Surgery and Urology consulted drain in place WBCs Urology urology to do cystoscopy today as scheduled IV antibiotics Levaquin, Flagyl AFIB Optimize ARNI/ MERLY-inhibitor/Beta-blockers, Toprol statin and antiplatelet therapy continue Xarelto Monitor for RVR and SOB Echo results noted ANEMIA Hgb POA No reports of bleeding daily H&H 9.2/8.7/8.5 Tranfuse if hemoglobin less than 7 Hypokalemia replace potassium 3.2/2.9/3.1 History of hypertension restart amlodipine , valsartan will monitor BP 159/70 Liver lesion evaluated by the CT scan may need an MRI once medically stable an outpatient Urology input Interesting finding yesterday -> marked infection right ureter suggesting possible communication right renal collecting system with right psoas abscess (although no clear extravasation of contrast form collecting system into abscess cavity or drain). Will plan to leave right stent and Rodríguez catheter x2 months to provide maximal drainage right kidney. Will plan to leave right psoas drain x4-6 weeks. Left perinephric drain can be removed 2 weeks given small abscess on that side. Subjective Date/time seen: 03/05/24 09:53 Interval history: Patient appears comfortable denies any complaint status post cystoscopy yesterday Review of Systems Review of Systems: All systems reviewed & are unremarkable except as noted in HPI and below Exam Narrative: GENERAL: Well appearing, no acute distress. HEAD: Normocephalic, atraumatic. NECK: Supple. No adenopathy, no masses. RESPIRATORY: respirations nonlabored. , no rales, wheezing. CARDIOVASCULAR: Regular rate and rhythm without murmurs, . Peripheral pulses 2+ and equal bilaterally. ABDOMINAL: Soft, nontender, nondistended, drains MUSCULOSKELETAL: no Epigastric and no hypochondrial tenderness SKIN: Warm, dry, NEURO: A&O X3. Moves all extremities Objective Data Vital Signs Vital Signs: Vital Signs - 24 hr 03/04/24 12:00 03/04/24 14:52 03/04/24 15:00 Temperature 36.6 C 36.6 C Pulse Rate 51 L 56 L 56 L Respiratory Rate 14 14 Blood Pressure 184/38 H 184/38 H Pulse Oximetry 100 100 Oxygen Delivery Room Air Room Air Oxygen Flow Rate 03/04/24 15:57 03/04/24 16:10 03/04/24 16:25 Temperature 36.3 C L Pulse Rate 48 L 50 L 51 L Respiratory Rate 18 14 17 Blood Pressure 191/36 H 186/47 H 192/44 H Pulse Oximetry 100 100 97 Oxygen Delivery Simple Face Mask Simple Face Mask Room Air Oxygen Flow Rate 8 8 03/04/24 16:40 03/04/24 16:50 03/04/24 17:12 Temperature 36.6 C 36.6 C 36.0 C L Pulse Rate 55 L 57 L 54 L Respiratory Rate 15 16 16 Blood Pressure 189/44 H 189/44 H 154/37 H Pulse Oximetry 98 96 99 Oxygen Delivery Room Air Room Air Oxygen Flow Rate 03/04/24 17:30 03/04/24 17:52 03/04/24 19:26 Temperature 36.1 C L 36.2 C L Pulse Rate 56 L 58 L Respiratory Rate 16 16 Blood Pressure 181/34 H 176/33 H Pulse Oximetry 98 99 Oxygen Delivery Room Air Oxygen Flow Rate 03/04/24 20:40 03/04/24 20:53 03/04/24 20:00 Temperature 36.1 C L Pulse Rate 68 68 72 Respiratory Rate 18 Blood Pressure 181/48 H Pulse Oximetry 99 Oxygen Delivery Oxygen Flow Rate 03/05/24 00:00 03/05/24 04:03 03/05/24 04:00 Temperature 36.1 C L Pulse
[2024-03-05] MEDS: ACETAMINOPHEN 325 MG TABLET 650 MG PO (10:03)
[2024-03-05] MEDS: amLODIPine BESYLATE 5 MG TABLET 10 MG PO (11:26)
[2024-03-05 11:29] LABS: Hematocrit 32.2 % (37.0-47.0); Hemoglobin 10.1 g/dL (12.0-15.0); Mean Corpuscular HGB Conc 31.4 g/dl (32-36); Mean Corpuscular Hemoglobin 27.6 pg (26-34); Mean Platelet Volume 10.6 fl (7.4-10.4); Platelet Count Result 285 k/mm3 (150-375); Red Blood Count 3.66 M/mm3 (4.2-5.4); Red Cell Distribution Width 17.9 % (11.5-14.5); White Blood Count 8.6 K/mm3 (4.5-10.0)
--- NOTE | 2024-03-05 11:51 | PM.PNGS ---
Progress Note: A&P Assessment and Plan (1) Psoas abscess: Code(s): K68.12 - Psoas muscle abscess Status: Acute Assessment and Plan: likely connection c R collecting system, management per urology, no acute surgical issues, will s/o, call c ?s, issues (2) Perinephric abscess: Code(s): N15.1 - Renal and perinephric abscess Status: Acute Assessment and Plan: see above Subjective Subjective Date/Time Seen: 03/05/24 11:51 Interval history: feels some abd pressure, otherwise doing ok, still pretty weak Review of Systems Review of Systems: All systems reviewed & are unremarkable except as noted in HPI and below Exam Const: General: cooperative, comfortable, no acute distress and ill appearing Resp: Auscultation: clear to auscultation bilaterally Cardio: Rate: regular rate Rhythm: regular rhythm GI: Inspection: normal to inspection and distended GI Palp: Yes abdominal tenderness and Yes Soft to palpation Other: drains x 2 c scant drainage Objective Data Vital Signs Vital Signs: Vital Signs - 24 hr 03/04/24 12:00 03/04/24 14:52 03/04/24 15:00 Temperature 36.6 C 36.6 C Pulse Rate 51 L 56 L 56 L Respiratory Rate 14 14 Blood Pressure 184/38 H 184/38 H Pulse Oximetry 100 100 Oxygen Delivery Room Air Room Air Oxygen Flow Rate 03/04/24 15:57 03/04/24 16:10 03/04/24 16:25 Temperature 36.3 C L Pulse Rate 48 L 50 L 51 L Respiratory Rate 18 14 17 Blood Pressure 191/36 H 186/47 H 192/44 H Pulse Oximetry 100 100 97 Oxygen Delivery Simple Face Mask Simple Face Mask Room Air Oxygen Flow Rate 8 8 03/04/24 16:40 03/04/24 16:50 03/04/24 17:12 Temperature 36.6 C 36.6 C 36.0 C L Pulse Rate 55 L 57 L 54 L Respiratory Rate 15 16 16 Blood Pressure 189/44 H 189/44 H 154/37 H Pulse Oximetry 98 96 99 Oxygen Delivery Room Air Room Air Oxygen Flow Rate 03/04/24 17:30 03/04/24 17:52 03/04/24 19:26 Temperature 36.1 C L 36.2 C L Pulse Rate 56 L 58 L Respiratory Rate 16 16 Blood Pressure 181/34 H 176/33 H Pulse Oximetry 98 99 Oxygen Delivery Room Air Oxygen Flow Rate 03/04/24 20:40 03/04/24 20:53 03/04/24 20:00 Temperature 36.1 C L Pulse Rate 68 68 72 Respiratory Rate 18 Blood Pressure 181/48 H Pulse Oximetry 99 Oxygen Delivery Oxygen Flow Rate 03/05/24 00:00 03/05/24 04:03 03/05/24 04:00 Temperature 36.1 C L Pulse Rate 53 L 52 L 53 L Respiratory Rate 18 Blood Pressure 158/65 H Pulse Oximetry 99 Oxygen Delivery Oxygen Flow Rate 03/05/24 09:35 Temperature Pulse Rate 79 Respiratory Rate Blood Pressure Pulse Oximetry Oxygen Delivery Oxygen Flow Rate Intake/Output Intake/Output: Intake & Output 03/02/24 03/03/24 03/04/24 03/05/24 23:59 23:59 23:59 23:59 Intake Total 3360 2330 1460 1480 Output Total 1000 2000 1250 540 Balance 2360 330 210 940 Meds/Results Medications: Active Medications Generic Name Dose Route Start Last Admin Trade Name Freq PRN Reason Stop Dose Admin Acetaminophen 650 mg 02/29/24 04:32 03/05/24 10:03 Acetaminophen 325 Mg Tablet PO 650 mg Q4H PRN Administration Mild Pain (1-3) or Fever Al Hydrox/Mg Hydrox/Simethicone 30 ml 02/29/24 04:32 Mag Hydrox/Al Hydrox/Simeth 30 Ml Udc PO QID PRN Dyspepsia Allopurinol 300 mg 02/29/24 09:00 03/05/24 09:34 Allopurinol 300 Mg Tablet PO 300 mg DAILY JENNA Administration Amlodipine Besylate 10 mg 03/05/24 10:05 03/05/24 11:26 Amlodipine Besylate 5 Mg Tablet PO 10 mg DAILY JENNA Administration Ascorbic Acid 500 mg 02/29/24 09:00 03/05/24 09:35 Ascorbic Acid 500 Mg Tablet PO 500 mg QAM JENNA Administration Hydrochlorothiazide 12.5 mg 03/04/24 11:10 03/05/24 09:35 Hydrochlorothiazide 12.5 Mg Capsule PO 12.5 mg DAILY JENNA Administration Sodium Chloride 1,000 mls @ 60 mls/hr 02/29/24 04:40 03/05/24 09:44 Normal Saline Iv IV CONT 60 ml
--- NOTE | 2024-03-05 12:27 | WPDANESPN ---
Anes - Prog Note Post-Op Date/Time: 03/05/24 12:27 Cardiovascular status: normal Respiratory status: normal Airway patency: baseline Mental status: baseline Post-Op hydration status: normal Vital Signs: Last Vital Signs Temp 36.1 C L 03/05/24 04:03 Pulse 79 03/05/24 09:35 Resp 18 03/05/24 04:03 BP 158/65 H 03/05/24 04:03 Pulse Ox 99 03/05/24 04:03 O2 Del Method Room Air 03/04/24 19:26 O2 Flow Rate 8 03/04/24 16:10 Pain Score (VAS): 11/01 I/O: Intake & Output 03/04/24 03/05/24 03/05/24 23:59 07:59 15:59 Intake Total 460 1240 240 Output Total 150 540 Balance 310 700 240 Laboratory Tests 03/05/24 11:21 03/05/24 05:29 03/04/24 03/05/24 03/05/24 14:06 05:29 11:21 WBC 8.6 RBC 3.66 L Hgb 10.1 L Hct 32.2 L MCV 88.0 MCH 27.6 MCHC 31.4 L RDW 17.9 H Plt Count 285 MPV 10.6 H Sodium 137 Potassium 3.5 3.1 L Chloride 113 H Carbon Dioxide 22 Anion Gap 2 L BUN 9 Creatinine 0.60 L Estim Creat Clear Calc 51 Estimated GFR > 60 Glucose 103 Calcium 9.8 Total Bilirubin 0.5 AST 30 ALT 18 Alkaline Phosphatase 80 Total Protein 4.0 L Albumin 2.1 L Post-procedural complaints: none Patient Feedback: Patient satisfied with anesthetic care.
[2024-03-05] MEDS: levoFLOXacin 750 MG TABLET PO (20:21)
[2024-03-06] VITALS (12 sets, daily range): BP systolic 163–174; BP diastolic 54–64; PULSE 62–87; RESP 18–20; TEMP 36.1–36.6; O2SAT 96–99
[2024-03-06] MEDS: SODIUM CHLORIDE 0.9% IV 1,000 ML 60 ML IV CONT ×2 (02:30→19:04)
[2024-03-06] MEDS: metroNIDAZOLE 500 MG TABLET PO ×3 (05:28→21:15)
[2024-03-06] MEDS: CENTRAL LINE FLUSH 10 ML IV PUSH ×3 (05:28→21:16)
[2024-03-06 05:36] LABS: Hematocrit 28.9 % (37.0-47.0); Hemoglobin 9.2 g/dL (12.0-15.0); Mean Corpuscular HGB Conc 31.8 g/dl (32-36); Mean Corpuscular Hemoglobin 27.8 pg (26-34); Mean Corpuscular Volume 87.3 fl (80-100); Mean Platelet Volume 10.3 fl (7.4-10.4); Platelet Count Result 255 k/mm3 (150-375); Red Blood Count 3.31 M/mm3 (4.2-5.4); Red Cell Distribution Width 17.9 % (11.5-14.5); White Blood Count 8.3 K/mm3 (4.5-10.0)
[2024-03-06] MEDS: PANTOPRAZOLE SODIUM IV 40 MG VIAL IV PUSH (10:17)
[2024-03-06] MEDS: ASCORBIC ACID 500 MG TABLET PO (10:18)
[2024-03-06] MEDS: hydroCHLOROthiazide 12.5 MG CAPSULE PO (10:18)
[2024-03-06] MEDS: POTASSIUM CHLORIDE 20 MEQ PACKET (FOR LIQUID) 40 MEQ PO (10:18)
[2024-03-06] MEDS: allopurinoL 300 MG TABLET PO (10:18)
[2024-03-06] MEDS: VALSARTAN 80 MG TABLET PO (10:18)
[2024-03-06] MEDS: VITAMIN B COMPLEX CAPSULE 1 CAP PO (10:18)
[2024-03-06] MEDS: METOPROLOL TARTRATE 12.5 MG TABLET PO ×2 (10:19→21:15)
[2024-03-06] MEDS: amLODIPine BESYLATE 5 MG TABLET 10 MG PO (10:19)
[2024-03-06] MEDS: MAGNESIUM HYDROXIDE SUSP 30 ML UDC PO (12:40)
--- NOTE | 2024-03-06 19:03 | PM.IMPN ---
Progress Note: A&P Assessment and Plan (1) Liver lesion: Code(s): K76.9 - Liver disease, unspecified Status: Acute (2) Anemia: Code(s): D64.9 - Anemia, unspecified Status: Acute (3) Perinephric abscess: Code(s): N15.1 - Renal and perinephric abscess Status: Acute (4) Constipation: Code(s): K59.00 - Constipation, unspecified Status: Acute Plan Continue to appreciate Urology recommendations. Trend CBC and if hemoglobin okay restart her to coagulate in the morning. Check KUB. Consider starting laxative afterwards. DNR. SCDs. Subjective Date/time seen: 03/06/24 19:03 Interval history: No acute overnight events. The patient feels well other than complaining of rectal pain with his intermittent squeezing accompanied by constipation. She has had a hard time making stool. Review of Systems Review of Systems: All systems reviewed & are unremarkable except as noted in HPI and below (Subjective) Exam Const: General: comfortable and no acute distress Eyes: Pupils: Equal, round and reactive pupils present Neck: Neck: supple Resp: Effort & Inspection: normal respiratory effort Auscultation: clear to auscultation bilaterally Cardio: Rate: regular rate Rhythm: regular rhythm GI: Inspection: non-distended GI Palp: Yes Soft to palpation, No Tenderness to palpation present (GI) and No Guarding due to palpation present (GI) Auscultation: normal bowel sounds Extrem: General: no edema Objective Data Vital Signs Vital Signs: Vital Signs - 24 hr 03/05/24 20:21 03/05/24 22:30 03/05/24 20:00 Temperature 97.9 F Pulse Rate 76 73 70 Respiratory Rate 20 Blood Pressure 172/44 H Pulse Oximetry 99 Oxygen Delivery 03/05/24 20:00 03/06/24 00:00 03/06/24 04:00 Temperature Pulse Rate 63 67 Respiratory Rate Blood Pressure Pulse Oximetry Oxygen Delivery Room Air 03/06/24 06:00 03/06/24 10:19 03/06/24 10:20 Temperature 97.0 F L Pulse Rate 62 79 Respiratory Rate 20 Blood Pressure 163/57 H Pulse Oximetry 99 99 Oxygen Delivery Room Air 03/06/24 14:00 03/06/24 08:00 06/15/24 12:00 Temperature 97.8 F Pulse Rate 64 71 70 Respiratory Rate 18 Blood Pressure 174/64 H Pulse Oximetry 97 Oxygen Delivery 03/06/24 16:00 Temperature Pulse Rate 73 Respiratory Rate Blood Pressure Pulse Oximetry Oxygen Delivery Intake/Output Intake/Output: Intake & Output 03/03/24 03/04/24 03/05/24 03/06/24 23:59 23:59 23:59 23:59 Intake Total 233 1460 2120 1770 Output Total 19990 1765 3545 Balance 330 210 950 -9808 Meds/Results Medications: Active Medications Generic Name Dose Route Start Last Admin Trade Name Freq PRN Reason Stop Dose Admin Acetaminophen 650 mg 02/29/24 04:32 03/05/24 10:03 Acetaminophen 325 Mg Tablet PO 650 mg Q4H PRN Administration Mild Pain (1-3) or Fever Al Hydrox/Mg Hydrox/Simethicone 30 ml 02/29/24 04:32 Mag Hydrox/Al Hydrox/Simeth 30 Ml Udc PO QID PRN Dyspepsia Allopurinol 300 mg 02/29/24 09:00 03/06/24 10:18 Allopurinol 300 Mg Tablet PO 300 mg DAILY JENNA Administration Amlodipine Besylate 10 mg 03/05/24 10:05 03/06/24 10:19 Amlodipine Besylate 5 Mg Tablet PO 10 mg DAILY JENNA Administration Ascorbic Acid 500 mg 02/29/24 09:00 03/06/24 10:18 Ascorbic Acid 500 Mg Tablet PO 500 mg QAM JENNA Administration Hydrochlorothiazide 12.5 mg 03/04/24 11:10 03/06/24 10:18 Hydrochlorothiazide 12.5 Mg Capsule PO 12.5 mg DAILY JENNA Administration Sodium Chloride 1,000 mls @ 60 mls/hr 02/29/24 04:40 03/06/24 02:30 Normal Saline Iv IV CONT 60 mls/hr .[id number] JENNA Administration Levofloxacin 750 mg 03/04/24 21:00 03/05/24 20:21 Levofloxacin 750 Mg Tablet PO 750 mg DAILY@2100 JENNA Administration Magnesium Hydroxide 30 ml 02/29/24 04:32 03/06/24 12:40 Magnesium Hydroxide Susp 30 Ml Udc
[2024-03-06 19:26] LABS: Hematocrit 29.6 % (37.0-47.0); Hemoglobin 9.7 g/dL (12.0-15.0); Mean Corpuscular HGB Conc 32.8 g/dl (32-36); Mean Corpuscular Volume 85.3 fl (80-100); Mean Platelet Volume 10.6 fl (7.4-10.4); Platelet Count Result 288 k/mm3 (150-375); Red Blood Count 3.47 M/mm3 (4.2-5.4); Red Cell Distribution Width 18.3 % (11.5-14.5); White Blood Count 10.1 K/mm3 (4.5-10.0)
[2024-03-06 19:40] LABS: Anion Gap 2 mmol/L (4-12); Blood Urea Nitrogen 8 mg/dL (7-17); Calcium 10.2 mg/dL (8.4-10.2); Carbon Dioxide 25 mmol/L (22-30); Chloride 109 mmol/L (98-107); Estimated CRCL calculation 51 ml/min; Estimated Glomerular Filt Rate > 60; Glucose 91 mg/dL (65-110); Magnesium 1.6 mg/dL (1.6-2.3); Potassium 3.7 mmol/L (3.4-5.0); Sodium 136 mmol/L (137-145)
[2024-03-06] MEDS: levoFLOXacin 750 MG TABLET PO (21:15)
[2024-03-07] VITALS (12 sets, daily range): BP systolic 124–149; BP diastolic 42–43; PULSE 55–79; RESP 18–20; TEMP 35.8–36.6; O2SAT 97–99
[2024-03-07 05:10] LABS: Basophils Absolute Auto 0.1 K/mm3 (0.0-0.1); Basophils Percent Auto 0.8 % (0.2-1.2); Eosinophils Absolute Auto 0.4 K/mm3 (0-0.3); Eosinophils Percent Auto 5.8 % (0-4.4); Hematocrit 26.5 % (37.0-47.0); Hemoglobin 8.5 g/dL (12.0-15.0); Immature Granulocyte Absolute 0.03 K/mm3 (0.00-0.031); Immature Granulocyte Percent A 0.5 % (0-0.5); Lymphocytes Absolute Auto 1.15 K/mm3 (0.9-3.2); Lymphocytes Percent Auto 17.5 % (18.3-44.2); Mean Corpuscular HGB Conc 32.1 g/dl (32-36); Mean Corpuscular Hemoglobin 28.1 pg (26-34); Mean Corpuscular Volume 87.5 fl (80-100); Mean Platelet Volume 10.3 fl (7.4-10.4); Monocytes Absolute Auto 0.7 K/mm3 (0.1-0.6); Monocytes Percent Auto 9.9 % (2.6-8.5); Neutrophils Absolute Auto 4.3 K/mm3 (1.3-6.7); Neutrophils Percent Auto 65.5 % (45.5-73.1); Platelet Count Result 246 k/mm3 (150-375); Red Blood Count 3.03 M/mm3 (4.2-5.4); Red Cell Distribution Width 18.1 % (11.5-14.5); White Blood Count 6.6 K/mm3 (4.5-10.0)
[2024-03-07 05:31] LABS: Anion Gap 1 mmol/L (4-12); Blood Urea Nitrogen 6 mg/dL (7-17); Calcium 9.3 mg/dL (8.4-10.2); Carbon Dioxide 24 mmol/L (22-30); Chloride 113 mmol/L (98-107); Estimated CRCL calculation 60 ml/min; Estimated Glomerular Filt Rate > 60; Glucose 80 mg/dL (65-110); Magnesium 1.5 mg/dL (1.6-2.3); Potassium 3.4 mmol/L (3.4-5.0); Sodium 138 mmol/L (137-145)
[2024-03-07] MEDS: POTASSIUM CHLORIDE 20 MEQ PACKET (FOR LIQUID) 40 MEQ PO (09:41)
[2024-03-07] MEDS: PANTOPRAZOLE SODIUM IV 40 MG VIAL IV PUSH (09:42)
[2024-03-07] MEDS: METOPROLOL TARTRATE 12.5 MG TABLET PO ×2 (09:42→21:33)
[2024-03-07] MEDS: VITAMIN B COMPLEX CAPSULE 1 CAP PO (09:43)
[2024-03-07] MEDS: ASCORBIC ACID 500 MG TABLET PO (09:43)
[2024-03-07] MEDS: allopurinoL 300 MG TABLET PO (09:43)
[2024-03-07] MEDS: VALSARTAN 80 MG TABLET PO (09:43)
[2024-03-07] MEDS: amLODIPine BESYLATE 5 MG TABLET 10 MG PO (09:43)
[2024-03-07] MEDS: hydroCHLOROthiazide 12.5 MG CAPSULE PO (09:43)
[2024-03-07] MEDS: SODIUM CHLORIDE 0.9% IV 1,000 ML 60 ML IV CONT (12:28)
[2024-03-07] MEDS: metroNIDAZOLE 500 MG TABLET PO ×2 (14:50→21:32)
[2024-03-07] MEDS: CENTRAL LINE FLUSH 10 ML IV PUSH ×2 (14:50→21:37)
--- NOTE | 2024-03-07 16:04 | PM.IMPN ---
Progress Note: A&P Assessment and Plan (1) Perinephric abscess: Code(s): N15.1 - Renal and perinephric abscess Status: Acute (2) Metabolic encephalopathy: Code(s): G93.41 - Metabolic encephalopathy Status: Acute (3) Psoas abscess: Code(s): K68.12 - Psoas muscle abscess Status: Acute (4) Sepsis with metabolic encephalopathy: Code(s): A41.9 - Sepsis, unspecified organism; R65.20 - Severe sepsis without septic shock; G93.41 - Metabolic encephalopathy Status: Acute Plan 83-year-old female with past medical history paroxysmal AFib, gout, hypertension. Recently discharged from [facility] on 02/27/2024 as she had presented with confusion, dehydration, hyperkalemia. UA demonstrated UTI and CT demonstrated large right psoas abscess. Pigtail drain placed for drainage of abscess. MRI brain demonstrated no acute abnormality. Patient failed voiding trial so Rodríguez catheter replaced. Also received Levaquin and Flagyl. She was subsequently discharged to rehab facility. She presents back to [facility] on 02/29/2024 and admitted for aggressive behavior. Workup revealed recurrence of right psoas abscess 2.6 x 3.4 x 13 cm and increase in size of left perinephric abscess at 4.2 x 3.5 x 2.5 cm. On 03/01/[address]-guided right psoas abscess drainage and left perinephric abscess drainage. On 03/04/2024 patient underwent cystoscopy bilateral retrograde pyelography right ureteroscopy and right ureteral stent placement with Dr. Perez. There is marked infection of the right ureter suggesting possible communication of right renal collecting system with right psoas abscess although there was no clear extravasation of contrast from collecting system into abscess cavity or drain. Plan is to leave right stent and Rodríguez catheter for 2 months to provide maximal drainage of the right kidney. Plan to leave right psoas strain for 4-6 weeks. Perinephric drain can be removed 2 weeks given small abscess on that side. Subcapsular enhancement at the caudal aspect of the right hepatic lobe Continue antibiotics. Restart Xarelto Subjective Date/time seen: 03/07/24 16:04 Interval history: No acute overnight events. The patient is sitting up in chair appearing very pleasant and energetic. Denies any further rectal pain. She had good bowel movement after Fleet enema. Denies fever. Review of Systems Review of Systems: All systems reviewed & are unremarkable except as noted in HPI and below (Subjective) Exam Narrative: Accordion drains with minimal serosanguineous/yellowish output Const: General: comfortable and no acute distress Eyes: Pupils: Equal, round and reactive pupils present Neck: Neck: supple Resp: Effort & Inspection: normal respiratory effort Auscultation: clear to auscultation bilaterally Cardio: Rate: regular rate Rhythm: regular rhythm GI: GI Palp: Yes Soft to palpation Extrem: General: no edema Objective Data Vital Signs Vital Signs: Vital Signs - 24 hr 03/06/24 20:00 03/06/24 20:00 03/06/24 20:23 Temperature 97.7 F Pulse Rate 82 87 Respiratory Rate 18 Blood Pressure 171/54 H Pulse Oximetry 96 Oxygen Delivery Room Air 03/06/24 21:15 03/07/24 00:05 03/07/24 04:04 Temperature Pulse Rate 77 60 55 L Respiratory Rate Blood Pressure Pulse Oximetry Oxygen Delivery 03/07/24 05:36 03/07/24 09:42 03/07/24 14:00 Temperature 96.4 F L 97.5 F L Pulse Rate 61 66 72 Respiratory Rate 18 18 Blood Pressure 149/43 H 124/42 L Pulse Oximetry 99 97 Oxygen Delivery Intake/Output Intake/Output: Intake & Output 03/04/24 03/05/24 03/06/24 03/07/24 23:59 23:59 23:59 23:59 Intake Total 1460 2120 2764 1100 Output Total 1250 1765 3545 1550 Balance 210 118 -864 -861 Meds/Results Medications: Active Medications Generic Name Dose Route Start Last Admin Trade Name Freq PRN Reason Stop Dose Admin
[2024-03-07] MEDS: MAGNESIUM SULF 2 GM/WATER 50ML 2 GM/50 ML BAG IVPB (17:41)
[2024-03-07] MEDS: RIVAROXABAN 15 MG TABLET PO (18:03)
[2024-03-07] MEDS: levoFLOXacin 750 MG TABLET PO (21:33)
[2024-03-08] VITALS (11 sets, daily range): BP systolic 123–143; BP diastolic 41–47; PULSE 52–68; RESP 16–20; TEMP 36.3–36.6; O2SAT 98–100
[2024-03-08] MEDS: metroNIDAZOLE 500 MG TABLET PO ×3 (05:26→21:44)
[2024-03-08] MEDS: CENTRAL LINE FLUSH 20 ML IV PUSH (05:29)
[2024-03-08] MEDS: CENTRAL LINE FLUSH 10 ML IV PUSH ×3 (05:29→21:48)
[2024-03-08 05:41] LABS: Hemoglobin 8.5 g/dL (12.0-15.0); Mean Corpuscular HGB Conc 31.5 g/dl (32-36); Mean Corpuscular Hemoglobin 27.9 pg (26-34); Mean Corpuscular Volume 88.5 fl (80-100); Mean Platelet Volume 10.4 fl (7.4-10.4); Platelet Count Result 253 k/mm3 (150-375); Red Blood Count 3.05 M/mm3 (4.2-5.4); Red Cell Distribution Width 18.4 % (11.5-14.5); White Blood Count 5.1 K/mm3 (4.5-10.0)
[2024-03-08 05:52] LABS: Anion Gap 1 mmol/L (4-12); Blood Urea Nitrogen 9 mg/dL (7-17); Calcium 9.9 mg/dL (8.4-10.2); Carbon Dioxide 25 mmol/L (22-30); Chloride 110 mmol/L (98-107); Estimated CRCL calculation 51 ml/min; Estimated Glomerular Filt Rate > 60; Glucose 102 mg/dL (65-110); Magnesium 2.1 mg/dL (1.6-2.3); Potassium 3.8 mmol/L (3.4-5.0); Sodium 136 mmol/L (137-145)
[2024-03-08] MEDS: PANTOPRAZOLE SODIUM IV 40 MG VIAL IV PUSH (09:15)
[2024-03-08] MEDS: METOPROLOL TARTRATE 12.5 MG TABLET PO ×2 (09:16→21:44)
[2024-03-08] MEDS: allopurinoL 300 MG TABLET PO (09:16)
[2024-03-08] MEDS: VALSARTAN 80 MG TABLET PO (09:16)
[2024-03-08] MEDS: VITAMIN B COMPLEX CAPSULE 1 CAP PO (09:16)
[2024-03-08] MEDS: POTASSIUM CHLORIDE 20 MEQ PACKET (FOR LIQUID) 40 MEQ PO (09:16)
[2024-03-08] MEDS: ASCORBIC ACID 500 MG TABLET PO (09:17)
[2024-03-08] MEDS: amLODIPine BESYLATE 5 MG TABLET 10 MG PO (09:17)
[2024-03-08] MEDS: hydroCHLOROthiazide 12.5 MG CAPSULE PO (09:17)
--- NOTE | 2024-03-08 09:55 | WPDUROPN2 ---
Progress Note: A&P Assessment and Plan (1) Perinephric abscess: Code(s): N15.1 - Renal and perinephric abscess Status: Acute (2) Psoas abscess: Code(s): K68.12 - Psoas muscle abscess Status: Acute Assessment and Plan: Interesting finding during cystoscopy, bilateral retrograde pyelography, right ureteroscopy on 03/04/2024 -> noted to have marked infection of right ureter suggesting possible communication of right renal collecting system with right psoas abscess (although no clear extravasation of contrast form collecting system into abscess cavity or drain). Right ureteral stent was placed on 03/04/2024 Will plan to leave right stent and Rodríguez catheter x2 months to provide maximal drainage of right kidney. Will plan to leave right psoas drain x4-6 weeks. Left perinephric drain can be removed in 2 weeks given small abscess on that side (around 03/15/2024). Left perinephric abscess culture with no growth Right psoas abscess culture with no growth Subjective Subjective Date/Time Seen: 03/08/24 09:55 Interval history: Pedis feeling well today. She is sitting up in bed eating breakfast. Appears more alert. Denies any pain. Denies nausea, vomiting, fever, chills. Rodríguez catheter draining clear yellow urine. Bilateral drains with scant output of gamboa fluid Review of Systems Review of Systems: All systems reviewed & are unremarkable except as noted in HPI and below Exam Narrative: General: Awake, alert, comfortable, no acute distress HEENT: Normocephalic, atraumatic, sclerae anicteric Respiratory: Normal respiratory effort, no accessory muscle use Abdomen: Nondistended, soft, nontender, bilateral drains with scant amount of gamboa serous fluid : Rodríguez catheter draining clear yellow urine Skin: Normal coloration, warm and dry Neurologic: No focal neuro deficits noted Psychiatric: Appropriate mood and affect, judgment and insight fair Objective Data Vital Signs Vital Signs: Vital Signs - 24 hr 03/07/24 14:00 03/07/24 12:00 03/07/24 16:00 Temperature 97.5 F L Pulse Rate 72 68 66 Respiratory Rate 18 Blood Pressure 124/42 L Pulse Oximetry 97 Oxygen Delivery 03/07/24 21:33 03/07/24 20:00 03/07/24 20:00 Temperature Pulse Rate 79 68 Respiratory Rate Blood Pressure Pulse Oximetry Oxygen Delivery Room Air 03/07/24 22:00 03/08/24 00:00 03/08/24 04:00 Temperature 97.9 F Pulse Rate 68 52 L 54 L Respiratory Rate 20 Blood Pressure 130/42 L Pulse Oximetry 98 Oxygen Delivery 03/08/24 06:00 03/08/24 09:16 Temperature 97.9 F Pulse Rate 59 L 60 Respiratory Rate 20 Blood Pressure 143/42 H Pulse Oximetry 98 Oxygen Delivery Intake/Output Intake/Output: Intake & Output 03/05/24 03/06/24 03/07/24 03/08/24 23:59 23:59 23:59 23:59 Intake Total 2120 2764 1250 1240 Output Total 1769 0533 9630 5 Balance 212 -602 -9893 1238 Meds/Results Medications: Active Medications Generic Name Dose Route Start Last Admin Trade Name Freq PRN Reason Stop Dose Admin Acetaminophen 650 mg 02/29/24 04:32 03/05/24 10:03 Acetaminophen 325 Mg Tablet PO 650 mg Q4H PRN Administration Mild Pain (1-3) or Fever Al Hydrox/Mg Hydrox/Simethicone 30 ml 02/29/24 04:32 Mag Hydrox/Al Hydrox/Simeth 30 Ml Udc PO QID PRN Dyspepsia Allopurinol 300 mg 02/29/24 09:00 03/08/24 09:16 Allopurinol 300 Mg Tablet PO 300 mg DAILY JENNA Administration Amlodipine Besylate 10 mg 03/05/24 10:05 03/08/24 09:17 Amlodipine Besylate 5 Mg Tablet PO 10 mg DAILY JENNA Administration Ascorbic Acid 500 mg 02/29/24 09:00 03/08/24 09:17 Ascorbic Acid 500 Mg Tablet PO 500 mg QAM JENNA Administration Hydrochlorothiazide 12.5 mg 03/04/24 11:10 03/08/24 09:17 Hydrochlorothiazide 12.5 Mg Capsule PO 12.5 mg DAILY JENNA Administration Levofloxacin 750 mg 03/04/24 21:00 03/07/24 21:33
--- NOTE | 2024-03-08 11:02 | PCNFU ---
Nutrition Follow-Up Complete: Severe protein calorie malnutrition related to chronic loss of appetite as evidenced by weight loss 52%/1 year; inadequate intake <75% needs >1 month. Diet orders Improve PO intake when diet is advanced - Progressing toward goal. Intakes vary 0-75% meals. Continue with current goal Goal: Pt current nutrition is Regular diet with Ensure Compact BID for additional 220 kcal and 9 g protein each. Nutrition recommendation: No new nutrition recommendations. Continue with current nutrition care plan and orders Last recorded weight is 54 kg. Bowel Motility: +6 BMs yesterday 03/07/24 after bowel regimen Labs Reviewed: Hgb 8.5, Hct 2.7, Na 136, Cre 0.6 Meds Noted: Zofran, protonix Skin: No pressure injuries Additional Notes: Intakes improving. Continue with current plan and orders. Agree with orders. Monitoring intakes, weights, labs, plan of care, diet orders Follow up in 5 days
--- NOTE | 2024-03-08 14:54 | PM.IMPN ---
Progress Note: A&P Assessment and Plan (1) Perinephric abscess: Code(s): N15.1 - Renal and perinephric abscess Status: Acute (2) Metabolic encephalopathy: Code(s): G93.41 - Metabolic encephalopathy Status: Acute (3) Psoas abscess: Code(s): K68.12 - Psoas muscle abscess Status: Acute (4) Sepsis with metabolic encephalopathy: Code(s): A41.9 - Sepsis, unspecified organism; R65.20 - Severe sepsis without septic shock; G93.41 - Metabolic encephalopathy Status: Acute Plan 83-year-old female with past medical history paroxysmal AFib, gout, hypertension. Recently discharged from [facility] on 02/27/2024 as she had presented with confusion, dehydration, hyperkalemia. UA demonstrated UTI and CT demonstrated large right psoas abscess. Pigtail drain placed for drainage of abscess. MRI brain demonstrated no acute abnormality. Patient failed voiding trial so Rodríguez catheter replaced. Also received Levaquin and Flagyl. She was subsequently discharged to rehab facility. She presents back to [facility] on 02/29/2024 and admitted for aggressive behavior. Workup revealed recurrence of right psoas abscess 2.6 x 3.4 x 13 cm and increase in size of left perinephric abscess at 4.2 x 3.5 x 2.5 cm. On 03/01/[address]-guided right psoas abscess drainage and left perinephric abscess drainage. On 03/04/2024 patient underwent cystoscopy bilateral retrograde pyelography right ureteroscopy and right ureteral stent placement with Dr. Perez. There is marked infection of the right ureter suggesting possible communication of right renal collecting system with right psoas abscess although there was no clear extravasation of contrast from collecting system into abscess cavity or drain. Plan is to leave right stent and Rodríguez catheter for 2 months to provide maximal drainage of the right kidney. Plan to leave right psoas strain for 4-6 weeks. Perinephric drain can be removed 2 weeks given small abscess on that side. Subcapsular enhancement at the caudal aspect of the right hepatic lobe Severe protein calorie malnutrition related to recurrent infections. Encourage good p.o. intake which she is doing better with. Dietary supplements ordered. Metabolic encephalopathy resolved. Paroxysmal AFib on Toprol XL. On Xarelto. Continue both. History of hypertension. Continue to monitor, at goal. Continue to monitor anemia. Status post 1 unit PRBC on 03/01. B12/folate normal. Iron panel indicative of chronic inflammatory anemia. Continue antibiotics. On Xarelto. No GI prophylaxis indicated. Patient wishes to be DNR. Dispo: Anticipate discharge to SNF tomorrow. Insurance authorization in progress. Subjective Date/time seen: 03/08/24 14:54 Interval history: No acute overnight events. Patient appears tired but otherwise better than 2 days prior. She has no complaints. Review of Systems Review of Systems: All systems reviewed & are unremarkable except as noted in HPI and below (Subjective) Exam Narrative: Accordion drains with minimal serosanguineous/yellowish output Const: General: comfortable and no acute distress Eyes: Pupils: Equal, round and reactive pupils present Neck: Neck: supple Resp: Effort & Inspection: normal respiratory effort Auscultation: clear to auscultation bilaterally Cardio: Rate: regular rate Rhythm: regular rhythm GI: GI Palp: Yes Soft to palpation Extrem: General: no edema Objective Data Vital Signs Vital Signs: Vital Signs - 24 hr 03/07/24 16:00 03/07/24 21:33 03/07/24 20:00 Temperature Pulse Rate 66 79 68 Respiratory Rate Blood Pressure Pulse Oximetry Oxygen Delivery 03/07/24 20:00 03/07/24 22:00 03/08/24 00:00 Temperature 97.9 F Pulse Rate 68 52 L Respiratory Rate 20 Blood Pressure 130/42 L Pulse Oximetry 98 Oxygen Delivery Room Air 03/08/24 04:00 03/08/24 06:00 03/08/24 09:
[2024-03-08] MEDS: RIVAROXABAN 15 MG TABLET PO (16:59)
[2024-03-08] MEDS: levoFLOXacin 750 MG TABLET PO (21:44)
[2024-03-09] VITALS (7 sets, daily range): BP systolic 146–148; BP diastolic 42–51; PULSE 57–78; RESP 16–18; TEMP 36.2–36.8; O2SAT 96–100
[2024-03-09] MEDS: metroNIDAZOLE 500 MG TABLET PO ×2 (05:51→13:25)
[2024-03-09] MEDS: CENTRAL LINE FLUSH 10 ML IV PUSH (05:51)
[2024-03-09 06:32] LABS: Hematocrit 26.7 % (37.0-47.0); Hemoglobin 8.5 g/dL (12.0-15.0); Mean Corpuscular HGB Conc 31.8 g/dl (32-36); Mean Corpuscular Hemoglobin 28.1 pg (26-34); Mean Corpuscular Volume 88.1 fl (80-100); Mean Platelet Volume 10.4 fl (7.4-10.4); Platelet Count Result 255 k/mm3 (150-375); Red Blood Count 3.03 M/mm3 (4.2-5.4); Red Cell Distribution Width 18.3 % (11.5-14.5); White Blood Count 5.1 K/mm3 (4.5-10.0)
[2024-03-09 06:55] LABS: Anion Gap 1 mmol/L (4-12); Blood Urea Nitrogen 9 mg/dL (7-17); Calcium 9.7 mg/dL (8.4-10.2); Carbon Dioxide 26 mmol/L (22-30); Chloride 108 mmol/L (98-107); Estimated CRCL calculation 44 ml/min; Estimated Glomerular Filt Rate > 60; Glucose 91 mg/dL (65-110); Potassium 3.9 mmol/L (3.4-5.0); Sodium 135 mmol/L (137-145)
[2024-03-09] MEDS: allopurinoL 300 MG TABLET PO (09:02)
[2024-03-09] MEDS: POTASSIUM CHLORIDE 20 MEQ PACKET (FOR LIQUID) 40 MEQ PO (09:02)
[2024-03-09] MEDS: amLODIPine BESYLATE 5 MG TABLET 10 MG PO (09:02)
[2024-03-09] MEDS: VALSARTAN 80 MG TABLET PO (09:02)
[2024-03-09] MEDS: VITAMIN B COMPLEX CAPSULE 1 CAP PO (09:02)
[2024-03-09] MEDS: ASCORBIC ACID 500 MG TABLET PO (09:02)
[2024-03-09] MEDS: hydroCHLOROthiazide 12.5 MG CAPSULE PO (09:02)
[2024-03-09] MEDS: PANTOPRAZOLE SODIUM IV 40 MG VIAL IV PUSH (09:03)
[2024-03-09] MEDS: METOPROLOL TARTRATE 12.5 MG TABLET PO (09:03)
--- NOTE | 2024-03-09 09:33 | ECG_ITS ---
Test Date: 2024-03-09 10:21:03 Measurements Intervals [place] Rate: 69 P: 54 DC: 187 QRS: 21 QRSD: 74 T: 35 QT: 396 QTc: 424 Interpretive Statements SINUS RHYTHM ANTEROSEPTAL MYOCARDIAL INFARCTION , PROBABLY OLD [40+ ms Q WAVE IN V1-V4] No previous ECG available for comparison Electronically Signed On 03-09-2024 12:13:28 CDT by Uriel Anthony M.D.
--- NOTE | 2024-03-09 09:44 | PM.DS ---
DS: Admitting Diagnosis Discharge Date March 09, 2024 Admitting Diagnosis Altered mental status DS: Discharge Diagnosis Discharge Diagnosis (1) Liver lesion: Code(s): K76.9 - Liver disease, unspecified Status: Acute (2) Metabolic encephalopathy: Code(s): G93.41 - Metabolic encephalopathy Status: Acute (3) Perinephric abscess: Code(s): N15.1 - Renal and perinephric abscess Status: Acute (4) Psoas abscess: Code(s): K68.12 - Psoas muscle abscess Status: Acute DS: Summary Hospital Course Hospital Course: 83-year-old female with past medical history paroxysmal AFib, gout, hypertension. Recently discharged from [facility] on 02/27/2024 as she had presented with confusion, dehydration, hyperkalemia. UA demonstrated UTI and CT demonstrated large right psoas abscess. Pigtail drain placed for drainage of abscess. MRI brain demonstrated no acute abnormality. Patient failed voiding trial so Rodríguez catheter replaced. Also received Levaquin and Flagyl. She was subsequently discharged to rehab facility. She presents back to [facility] on 02/29/2024 and admitted for aggressive behavior. Workup revealed recurrence of right psoas abscess 2.6 x 3.4 x 13 cm and increase in size of left perinephric abscess at 4.2 x 3.5 x 2.5 cm. On 03/01/[address]-guided right psoas abscess drainage and left perinephric abscess drainage. On 03/04/2024 patient underwent cystoscopy bilateral retrograde pyelography right ureteroscopy and right ureteral stent placement with Dr. Perez. There is marked infection of the right ureter suggesting possible communication of right renal collecting system with right psoas abscess although there was no clear extravasation of contrast from collecting system into abscess cavity or drain. Plan is to leave right stent and Rodríguez catheter for 2 months to provide maximal drainage of the right kidney. Plan to leave right psoas drain for 4-6 weeks. Perinephric drain can be removed 2 weeks given small abscess on that side. Subcapsular enhancement at the caudal aspect of the right hepatic lobe seen on CT scan. Discussed with patient about MRI and she would like to have this followed up with PCP. Advised to have this done not long after discharge patient. Severe protein calorie malnutrition related to recurrent infections. Encourage good p.o. intake which she is doing better with. Dietary supplements ordered. Metabolic encephalopathy resolved. Patient required 1 unit PRBC on 03/01/2024 for acute on chronic anemia likely due to surgeries an abscess. Vitamin B12/folate normal. Iron panel also indicative of chronic inflammatory anemia. Her Xarelto was restarted a hemoglobin remained stable. For paroxysmal AFib Toprol XL was added she remained in rate control. Hydralazine discontinued. Blood pressure on the soft side. Patient had hypokalemia which was stabilized with daily potassium supplementation, continuing on discharge. Paroxysmal AFib on Toprol XL. On Xarelto. Continue both. Patient is stable for discharge to SNF for rehab. Has been weak due to multiple infections and surgeries. She was DNR during admission. Adverse effects, risk and benefits of medications discussed which she understand and agreed. Also discussed the importance of close follow-up with Urology and PCP and Cardiology to which she agreed. Greater than 35 minutes spent on discharge planning. Time Spent with Patient Time attestation: Total time spent providing and/or coordinating discharge services: Exam Narrative: Accordion drains with serosanguineous drainage, scant. No longer draining gamboa colored fluid. Const: General: comfortable and no acute distress Eyes: Pupils: Equal, round and reactive pupils present Neck: Neck: supple Resp: Effort & Inspection: normal respiratory effort Auscultation: clear to auscultation bilaterally Cardio: Rate: regular rate Rhythm:
--- NOTE | 2024-03-09 09:54 | WPDUROPN2 ---
Progress Note: A&P Assessment and Plan (1) Perinephric abscess: Code(s): N15.1 - Renal and perinephric abscess Status: Acute (2) Psoas abscess: Code(s): K68.12 - Psoas muscle abscess Status: Acute Assessment and Plan: Noted to have marked infection of right ureter during cystoscopy, bilateral retrograde pyelography, right ureteroscopy on 03/04/2024 suggesting possible communication of right renal collecting system with right psoas abscess (although no clear extravasation of contrast from collecting system into abscess cavity or drain). Right ureteral stent was placed on 03/04/2024 Will plan to leave right stent and Rodríguez catheter x2 months to provide maximal drainage of right kidney. Will plan to leave right psoas drain x4-6 weeks. Left perinephric drain can be removed in 2 weeks given small abscess on that side (around 03/15/2024). Left perinephric abscess culture with no growth Right psoas abscess culture with no growth Planning for discharge today. Will continue Levaquin x3 additional weeks until right psoas drain is removed. Will scheduled f/u in 1 week for left perinephric drain removal. Subjective Subjective Date/Time Seen: 03/09/24 09:54 Interval history: Feeling well today. Offers no concerns. Sitting up eating breakfast. Rodríguez draining clear yellow urine. Bilateral drains with scant serous output. No back or flank pain. No nausea, vomiting, fever, chills. Hopeful for discharge to nursing facility today Review of Systems Review of Systems: All systems reviewed & are unremarkable except as noted in HPI and below Exam Narrative: General: Awake, alert, comfortable, no acute distress HEENT: Normocephalic, atraumatic, sclerae anicteric Respiratory: Normal respiratory effort, no accessory muscle use Abdomen: Nondistended, soft, nontender, bilateral drains with scant amount of serous fluid : Rodríguez catheter draining clear yellow urine Skin: Normal coloration, warm and dry Neurologic: No focal neuro deficits noted Psychiatric: Appropriate mood and affect, judgment and insight fair Objective Data Vital Signs Vital Signs: Vital Signs - 24 hr 03/08/24 12:00 03/08/24 14:00 03/08/24 16:00 Temperature Pulse Rate 68 65 63 Respiratory Rate 16 Blood Pressure 123/47 L Pulse Oximetry 100 03/08/24 21:45 03/08/24 21:44 03/08/24 20:00 Temperature 97.4 F L Pulse Rate 61 61 63 Respiratory Rate 20 Blood Pressure 139/41 L Pulse Oximetry 99 03/09/24 00:00 03/09/24 04:00 03/09/24 06:00 Temperature 97.1 F L Pulse Rate 59 L 68 62 Respiratory Rate 18 Blood Pressure 148/42 H Pulse Oximetry 96 03/09/24 09:03 03/09/24 08:00 Temperature Pulse Rate 78 57 L Respiratory Rate Blood Pressure Pulse Oximetry Intake/Output Intake/Output: Intake & Output 03/06/24 03/07/24 03/08/24 03/09/24 23:59 23:59 23:59 23:59 Intake Total 2762 1250 2060 520 Output Total 6754 1350 753 800 Balance -781 -1200 1305 -280 Meds/Results Medications: Active Medications Generic Name Dose Route Start Last Admin Trade Name Freq PRN Reason Stop Dose Admin Acetaminophen 650 mg 02/29/24 04:32 03/05/24 10:03 Acetaminophen 325 Mg Tablet PO 650 mg Q4H PRN Administration Mild Pain (1-3) or Fever Al Hydrox/Mg Hydrox/Simethicone 30 ml 02/29/24 04:32 Mag Hydrox/Al Hydrox/Simeth 30 Ml Udc PO QID PRN Dyspepsia Allopurinol 300 mg 02/29/24 09:00 03/09/24 09:02 Allopurinol 300 Mg Tablet PO 300 mg DAILY JENNA Administration Amlodipine Besylate 10 mg 03/05/24 10:05 03/09/24 09:02 Amlodipine Besylate 5 Mg Tablet PO 10 mg DAILY JENNA Administration Ascorbic Acid 500 mg 02/29/24 09:00 03/09/24 09:02 Ascorbic Acid 500 Mg Tablet PO 500 mg QAM JENNA Administration Hydrochlorothiazide 12.5 mg 03/04/24 11:10 03/09/24 09:02 Hydrochlorothiazide 12.5 Mg Capsule PO 12.5 mg DAILY S
[2024-03-09] MEDS: NEOMYCIN/POLYMYXIN/BACITRACIN OINTMENT PACKET 1 PACKET (12:35)
== END 2024-03-09 14:38 | DRG 987 ==
PROVIDERS: Internal Medicine; Radiology Diagnostic Radiology; Urology; Admitting Provider Family Medicine; PCP Internal Medicine; Visit Provider General Practice
PROC: 0K9N30Z Drainage of Right Hip Muscle with Drainage Device, Percutaneous Approach (ICD-10-PCS; principal; 2024-03-01 14:15)
PROC: 0T768DZ Dilation of Right Ureter with Intraluminal Device, Via Natural or Artificial Opening Endoscopic (ICD-10-PCS; CPT 52352; principal; 2024-03-04 17:00)
DX: K68.12 Psoas muscle abscess (principal); E43 Unspecified severe protein-calorie malnutrition; N15.1 Renal and perinephric abscess; G93.41 Metabolic encephalopathy; D62 Acute posthemorrhagic anemia; R33.9 Retention of urine, unspecified; K76.9 Liver disease, unspecified; D64.89 Other specified anemias; I48.0 Paroxysmal atrial fibrillation; E86.0 Dehydration; E87.5 Hyperkalemia; I10 Essential (primary) hypertension; Z79.01 Long term (current) use of anticoagulants; Z68.20 Body mass index [BMI] 20.0-20.9, adult; Z85.828 Personal history of other malignant neoplasm of skin; Z90.49 Acquired absence of other specified parts of digestive tract
CPT/HCPCS: 36415; 36430; 36569; 74018; 74177; 74420; 75989; 80048; 80053; 80076; 80202; 81001; 82728; 83540; 83550; 83735; 84100; 84132; 85014; 85018; 85025; 85027; 86850; 86900; 86901; 86923; 87070; 87075; 87205; 93005; 97110; 97161; 97166; 97530; 97535; A9270; C1729; C1758; C1769; C2617; C9113; J2185; J2704; J3010; J3370; J3475; J7030; J7040; J7050; J7120; P9016; Q9966; Q9967

== ENCOUNTER 2024-03-24 07:38 | Outpatient (CLI) | payer MEDICARE, SELFPAY ==
--- NOTE | ~2024-03-24 | CT_ITS ---
EXAMINATION: CT abdomen pelvis w con DATE: 03/24/2024 08:39 INDICATION: Psoas abscess. TECHNIQUE: Computed tomography (CT) of the abdomen and pelvis was performed with 100 mL Omnipaque 320 intravenous contrast. Automated exposure control and iterative reconstruction technique were employe d. The dose-length product was 260.27 mGy-cm. COMPARISON: CT abdomen and pelvis 03/01/2024 FINDINGS: The visualized portions of the lung bases demonstrate mild atelectasis. No pleural effusion . The heart size is normal. There are coronary artery calcifications. There is a trace pericardial ef fusion. The heart size is normal. The liver, spleen, pancreas, and adrenal glands are normal. There i s a subacute nephrostomy tract in right kidney. There is a right internal ureteral stent in expected position. There is urothelial thickening and enhancement in the right ureter. There is a percutaneous drain in the right psoas muscle without significant residual abscess. There is a 3.1 x 2.0 cm absces s in the left perinephric space with 4 mm stone. There is a Rodríguez catheter in expected position. Ther e is diffuse bladder wall thickening. 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 There is a large volume of st ool in the colon. The appendix is not visualized. There are no dilated loops of bowel. There are no p athologically enlarged lymph nodes. There is no free intraperitoneal fluid. The endometrial complex i s thickened to 7 mm. There is a chronic compression fracture of L2. There is severe lumbar spondylosi s. IMPRESSION: 1. Percutaneous drain in right psoas muscle. No significant residual abscess. 2. Cystitis and right-sided pyelitis. Right internal ureteral stent in expected position. 3. 3.1 x 2.0 cm abscess in the left perinephric space, decreased from 3.4 x 2.6 cm on 03/01/2024. 4. Thickened endometrial complex, which may be seen with endometrial hyperplasia, polyp, or carcinoma . Biopsy is recommended. Reviewed, dictated and finalized at location [facility]. IMPRESSION: 1. Percutaneous drain in right psoas muscle. No significant residual abscess. 2. Cystitis and right-sided pyelitis. Right internal ureteral stent in expected position. 3. 3.1 x 2.0 cm abscess in the left perinephric space, decreased from 3.4 x 2.6 cm on 03/01/2024. 4. Thickened endometrial complex, which may be seen with endometrial hyperplasi a, polyp, or carcinoma. Biopsy is recommended.
== END 2024-03-24 07:39 | disposition home or self-care (01) ==
PROVIDERS: PCP Internal Medicine; Visit Provider Physician Assistant
DX: K68.12 Psoas muscle abscess (principal); N30.00 Acute cystitis without hematuria; N10 Acute pyelonephritis; R93.89 Abnormal findings on diagnostic imaging of other specified body structures
CPT/HCPCS: 74177; Q9967

== ENCOUNTER 2024-04-15 14:03 | Outpatient (CLI) | payer MEDICARE, SELFPAY ==
--- NOTE | ~2024-04-15 | CT_ITS ---
EXAMINATION: CT abdomen pelvis wo con DATE: 04/15/2024 14:55 INDICATION: Perinephric abscess TECHNIQUE: Computed tomography (CT) of the abdomen and pelvis was performed without intravenous contr ast. Automated exposure control and iterative reconstruction technique were employed. Exam dose: 347 .38 mGy-cm total exam DLP. COMPARISON: None. FINDINGS: Minimal dependent right lower lobe basilar atelectasis. Calcifications noted in the region of the aortic valve. Heart size is within normal limits. Trace per icardial fluid. Minimal right pleural effusion. The liver, gallbladder, bile ducts, pancreas, pancreatic duct and spleen are unremarkable. Normal morphology of the adrenal glands. Right internal urinary stent is in expected position. There is moderate diffuse thickening of bladder wall and minimal air in the urinary bladder. There is a ureteral thickening and periureteral stranding on the right, suggesting possible cystitis and righ t urinary tract infection. There is mild posterior right perinephric soft tissue thickening. Up to 18 x 34 mm encapsulated fluid collection may represent a posterolateral left perinephric absces s, not significantly changed since 03/24/2024. No left hydronephrosis. No perirenal space-occupying mass lesion is noted on this limited noncontrast examination. Prominent amount of abdominal aortic calcification, prominent calcification at the origin of the left renal artery. No abdominal aortic aneurysm. No intraperitoneal or retroperitoneal or pelvic mass les ion or adenopathy or ascites. No bowel obstruction or intraperitoneal free air. The appendix is not visualized. Retroverted uterus. The adnexal areas are unremarkable. Moderate anterior wedging of L2, likely chronic compression fracture. Moderately severe degenerative disc disease at L4-5 and L5-S1. Left greater than right hip osteoarthritis. IMPRESSION: Relatively stable left perinephric abscess since 03/24/2024 Removal of right psoas muscle percutaneous drain since 03/24/2024 Right internal urinary stent with periureteral stranding, ureteral thickening, suggesting infection Moderate thickening urinary bladder wall, minimal air in the urinary bladder 7: Cannot exclude cystit is Reviewed, dictated and finalized at [facility]. Reviewed, dictated and finalized at location [facility]. IMPRESSION: Relatively stable left perinephric abscess since 03/24/2024 Removal of right psoas muscle percutaneous drain since 03/24/2024 Right internal urinary stent with periureteral stranding, ureteral thickening, suggesting infection Moderate thickening urinary bladder wall, minimal air in the urinary bladder 7: Cannot exclude cystitis
== END 2024-04-15 14:04 | disposition home or self-care (01) ==
PROVIDERS: PCP Internal Medicine; Visit Provider Urology
DX: N15.1 Renal and perinephric abscess (principal); N32.89 Other specified disorders of bladder; Z96.0 Presence of urogenital implants
CPT/HCPCS: 74176

== ENCOUNTER 2024-05-19 14:23 | Outpatient (CLI) | payer MEDICARE, SELFPAY ==
--- NOTE | ~2024-05-19 | CT_ITS ---
EXAMINATION: CT abdomen pelvis wo con DATE: 05/19/2024 14:54 INDICATION: Psoas abscess. TECHNIQUE: Computed tomography (CT) of the abdomen and pelvis was performed without intravenous contr ast. Automated exposure control and iterative reconstruction technique were employed. The dose-length product was 267.38 mGy-cm. COMPARISON: CT abdomen and pelvis 04/15/2024, 03/24/24, 02/23/24 FINDINGS: The visualized portions of the lung bases demonstrate mild atelectasis. There is a 4 mm nod ule in right lower lobe, likely benign. No pleural effusion. The heart size is normal. There are meir nary artery calcifications. There is a trace pericardial effusion. The liver, gallbladder, spleen, pa ncreas, adrenal glands, and kidneys are normal. There is enlargement of the right psoas muscle with i ll-defined low attenuation. There is a 2.9 x 2.0 cm mass in left perinephric space, decreased from 3. 8 x 2.1 cm. There is a 4 mm calcification within the mass. There is diverticulosis of the colon witho ut evidence of diverticulitis. There are no dilated loops of bowel. The appendix is not visualized. T here is calcified atherosclerosis of the aorta and many of the other arteries. There are no pathologi nedra enlarged lymph nodes. There is gas in the bladder lumen, likely from recent instrumentation. Th ere is no ascites. There is severe lumbar spondylosis. IMPRESSION: 1. Stable enlargement and low-attenuation of right psoas muscle, consistent with myositis versus absc ess. 2. Improved mass in left perinephric space, consistent with phlegmon versus abscess. Reviewed, dictated and finalized at location A. IMPRESSION: 1. Stable enlargement and low-attenuation of right psoas muscle, consistent wit h myositis versus abscess. 2. Improved mass in left perinephric space, consistent with phlegmon versus abs cess.
== END 2024-05-19 14:24 | disposition home or self-care (01) ==
PROVIDERS: PCP Internal Medicine; Visit Provider Urology
DX: K68.12 Psoas muscle abscess (principal); N28.89 Other specified disorders of kidney and ureter
CPT/HCPCS: 74176

== ENCOUNTER 2025-02-01 13:34 | Outpatient (CLI) | payer MEDICARE, SELFPAY ==
--- NOTE | ~2025-02-01 | CT_ITS ---
Non-contrast CT scan of the Abdomen and Pelvis Clinical indication: Psoas abscess Technique: 2.5 mm axial scans were obtained through the abdomen and pelvis without intravenous or or al contrast. Dose reduction technique was used on this scan by utilizing automated exposure control a nd iterative reconstruction technique. The dose-length product (DLP) was 238.91 mGy-cm. COMPARISON: 10/15/2024 Findings: Images through the lung bases reveal stable 4 mm right lower lobe pulmonary nodule (axial image 26).. There is no evidence of renal or ureteral calculi. The kidneys and the ureters are nondilated. The liver, spleen, pancreas, gallbladder, and adrenals appear normal. There are atherosclerotic calci fications of the aorta. . There is no evidence of bowel obstruction. Images through the pelvis were performed. There is no evidence of ascites or lymphadenopathy. Urinary bladder unremarkable. No pelvic mass seen. Stable mild L2 compression deformity. Impression: No significant abnormality seen. Reviewed, dictated and finalized at [facility]. Impression: No significant abnormality seen.
--- OUTSIDE RECORDS SUMMARY | 2025-02-01 13:54 | XMS_ITS | Clinical Summary ---
Author Organization [facility] Address [address] [place] [address] Care Team Providers Care Schedule Maker Name Role Phone Osmel Moe MD Primary Care Provider [phone] Gomez Raymond MD Unavailable [phone] James Suarez MD Unavailable [phone] Ramo Squires MD Unavailable James Juarez MD Unavailable Allergies Active Allergy Reactions Criticality Noted Date Comments Atorvastatin Muscle pain Medium Cephalosporins Rash Medium 06/29/2019 Clindamycin Diarrhea,Rash Medium Codeine Other (See comments) Low Severe pain Iodinated Contrast Media Rash Medium 03/30/2024 Meperidine Unknown 06/29/2019 Morphine Unknown Low 01/19/2019 Penicillins Other (See comments) High passed out ; PCN allergy form filled out Propoxyphene Unknown 04/09/2024 Rosuvastatin Unknown Sulfa (Sulfonamide Antibiotics) Mental status changes Low Tramadol Unknown Medications ascorbic acid, vitamin C, (VITAMIN C) 500 mg capsule, extended release CR capsule 500 mg. 0 04/22/20 12 Active Xarelto 15 mg tablet TAKE 1 TABLET(15 MG) BY MOUTH DAILY WITH BREAKFAST 90 tablet 3 01/12/20 24 Active alendronate (Fosamax) 70 mg tablet Take 1 tablet (70 mg total) by mouth every 7 days Take in the morning with a full glass of water, on an empty stomach, and do not take anything else by mouth or lie down for the next 30 min. 04/01/20 24 025 Active Additional Information Patient not taking.Reported on 08/10/2024 acetaminophen (TYLENOL) 325 mg tablet Take 2 tablets (650 mg total) by mouth every 6 (six) hours as needed for pain Active vitamin B complex capsule Take 1 capsule by mouth daily Active triamcinolone (KENALOG) 0.5 % cream Apply topically 2 (two) times a day for 14 days 30 g 04/09/20 24 Active cholecalciferol (VITAMIN D-3) 2000 unit tablet Take 1 tablet (2,000 Units total) by mouth daily Active amLODIPine (NORVASC) 10 mg tabletIndicatio ns:Essential hypertension TAKE 1 TABLET(10 MG) BY MOUTH EVERY MORNING 90 tablet 1 08/17/20 24 Active mupirocin (BACTROBAN) 2 % creamIndication s:peritoneal dialysis catheter care Apply topically 3 (three) times a day 15 g 1 09/07/20 24 Active potassium chloride ER (KLOR-CON) 20 mEq CR tablet Take 1 and 1/2 tablets by mouth daily (30 MEQ) daily. 135 tablet 1 10/06/19 25 Active metoprolol XL (TOPROL-XL) 25 mg extended release tabletIndicatio ns:Essential hypertension Take 1 tablet (25 mg total) by mouth every morning 90 tablet 1 10/18/19 25 Active valsartan-hydro CHLOROthiazide (DIOVAN-HCT) 80-12.5 mg per tabletIndicatio ns:hypertension TAKE 1 TABLET BY MOUTH DAILY 90 tablet 3 11/18/19 25 026 Active allopurinoL (ZYLOPRIM) 300 mg tabletIndicatio ns:History of gout TAKE 1 TABLET(300 MG) BY MOUTH EVERY MORNING 90 tablet 1 01/11/20 25 Active allopurinoL (ZYLOPRIM) 300 mg tabletIndicatio ns:History of gout TAKE 1 TABLET(300 MG) BY MOUTH EVERY MORNING 90 tablet 10/20/19 25 025 Discontinued Active Problems Problem Noted Date Diagnosed Date Perinephric abscess 03/10/2024 Assessment & Plan (08/10/2024 2:56 PM DRAFTING CLERK): Patient advised me abscesses resolved through [facility] care she has a follow-up appointment with Urology Assessment & Plan (03/22/2024 10:26 AM CDT): Left pernephric drain placed 03/01/24 -- removed 03/15/24 Assessment & Plan (03/18/2024 12:54 PM CDT): Patient had fu with Dr. Perez 03/15. No orders or notes. Patient reports she was told she needed a CT before drain could be removed. Have called Urology for update on drain, CT, Voiding trial, abx dc date & POC. Waiting on return call. She continues to need increased nursing & therapy care with drains. Assessment & Plan (03/15/2024 11:13 AM CDT): Fu appt with Urology 03/15. Drain likely to be removed. Joe to stay in place per Urology. Continue Lovenox until completion. Flagyl completed. Assessment & Plan (03/10/2024 8:25 AM CDT): She currently has bilateral drainage tubes in her upper lumbar region of the back. Continue Levaquin and Flagyl oral. Follow up labs were ordered. She also has a ureteral stent per the family. She has a follow up appointment with Urology on the . She has an indwelling Joe catheter. Continue this pending her urology appointment. BCC (basal cell carcinoma), lip 07/31/2022 Overview (07/31/2022): Added automatically from request for surgery [id number] Melanocytic nevus of right upper extremity 07/31 Overview (07/31/2022): Added automatically from request for surgery [id number] Atrial fibrillation 11/08/2021 Assessment & Plan (06/23/2024 2:24 PM CDT): Chronic problems stable patient remains on 15 mg daily Assessment & Plan (03/10/2024 8:20 AM CDT): This is chronic stable. Please continue Xarelto. Monitor vital signs for RVR. Assessment & Plan (11/28/2022 6:04 PM DRAFTING CLERK): Patient's atrial fibrillation she applied for life insurance she was declined because of atrial fibrillation and protein in the urine. She want to make sure everything was being done regarding her problems. I explained to her atrial fibrillation importance of controlling rate as well as anticoagulation therapy. Patient is here with her daughter understood information given. Assessment & Plan (11/08/2021 1:35 PM DRAFTING CLERK): Patient is seen by customer services manager last 30 days she remains on Eliquis at this time fibrillation new onset less than 90 days ago. Patient is tolerating the Eliquis today of her pulses excellent. See her back in the next 4 months. Will continue Eliquis at this time Hospital discharge follow-up 10/08/2021 Assessment & Plan (02/28/2022 6:15 PM CDT): Patient is in the hospital for a procedure 01/23/2022 she had a bladder biopsy which was negative cancer she had a cystoscopy urtehscopy done. She has followed up with Urology no consequences of this procedure Assessment & Plan (10/08/2021 1:43 PM DRAFTING CLERK): Hospital follow-up admission date 10/02/2021 discharge date 10/05/2021.. Diagnosis acute cystitis with hematuria. 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 Patient has been given referral to [facility] urologist a few weeks. Patient's blood pressure is uncontrolled and she was seen by Cardiology and started on hydralazine as well as amlodipine is additional blood pressure medications. She will be seen the cardiology nurse practitioner on tomorrow 10/09/2021 blood pressure in his office 152/38. Patient is stable at this time and she is here with her daughter never good understands regarding these for both referrals. Adverse drug reaction 07/05/2021 Assessment & Plan (07/05/2021 5:46 PM CDT): Mitigare is a generic/substitute for brand name colchicine substitute. This particular brand causes patient have significant diarrhea was not very effective in relieving symptoms. Her insurance company [employer] is is has sent her a forms for to get a formal Aricept bardales. Chronic pain of both shoulders 09/20/2020 Assessment & Plan (09/20/2020 3:49 PM DRAFTING CLERK): Patient developed pain right shoulder after breast surgery many years ago has had limited range of motion in that shoulder in the last year she has developed limited range of motion left shoulder pain at 90 anterior laterally no deformity present some pain over palpating over shoulder. Patient's advised to utilize physical therapy going through range of motions of the shoulder she was taught how to do this. Osteoarthritis involving mul tiple joints on both sides of body 09/19/2020 Assessment & Plan (08/07/2023 2:11 PM DRAFTING CLERK): No complaints of joint pains whatsoever at this time Assessment & Plan (12/19/2020 5:03 PM CDT): Patient is having left shoulder pain she can raise her shoulder anterior and laterally to about 120 .. He [place] without lidocaine did help. She is also having right leg pain when she walks feels as though is going to give out on her. Patient's never stumble of health. Bending forward sometimes positive back of her leg because it will stretch it should. Tylenol Arthritis Strength 3 tablets a day helps.. Recommend patient go to a [facility] physical therapy see if stretching exercise may help her leg and possibly a shoulders. Assessment & Plan (09/19/2020 4:08 PM DRAFTING CLERK): Patient having joint pains multiple sites and yesterday was a neck and shoulders today's are time sometimes is a her legs.. His problems getting up and down out of chairs once she has completed a process she is a back to baseline with little to no pain. This started several months ago.. At this time as this patient on the whole Livalo it could be aggravating the problem but I am not convinced it is calls her myalgia and joint pain. She is using Tylenol multiple times a day without much benefit. Diabetes mellitus without complication 9 Assessment & Plan (08/10/2024 3:07 PM DRAFTING CLERK): Patient advised me she had an eye exam 1 week ago no diabetic eye disease found medical records report pending. Diabetes very well controlled hemoglobin HgbA1c less than 7 for the past 4 years. Current HgbA1c is results pending Assessment & Plan (08/07/2023 2:12 PM DRAFTING CLERK): Diabetes has been stable no HgbA1c today. Patient hemoglobin HgbA1c has not been above 7.0 in over 5 years. Assessment & Plan (03/15/2023 2:48 PM CDT): Diabetes continues to be well controlled range from 6.5-6.9 for last 4 years. No change in therapy Assessment & Plan (05/31/2022 8:54 AM CDT): Diabetes well controlled patient encouraged to get an eye exam based on age in present diabetes. She is not on medication for diabetes. No change in therapy HgbA1c is 6.0 Component Hgb A1C Latest Ref Rng & Units 4.0 - 5.6 % 07/01/2017 6.6 (H) 01/01/2018 6.5 (H) 07/14/2018 6.6 (H) 11/05/2018 6.6 (H) 05/27/2019 6.8 (H) 06/20/2020 7.3 (H) 04/24/2021 6.8 (H) 05/30/2022 6.0 (H) Assessment & Plan (10/02/2021 9:48 AM DRAFTING CLERK): Diet controlled, monitor glucose while inpatient and start insulin if necessary. Assessment & Plan (04/24/2021 3:06 PM CDT): Last HgbA1c 10 months ago was ago was 7.3 will update HgbA1c today as well as BMP. Patient's advised get updated eye exam her foot exam is normal Assessment & Plan (06/20/2020 2:54 PM CDT): Diabetes has been well controlled patient advised get a current eye exam foot exam is normal patient to have an HgbA1c done previous A1cs were excellent. Assessment & Plan (12/02/2019 1:50 PM CDT): Diabetes well controlled hemoglobin HgbA1c 6.8 her A1cs have been consistently less than 7 for last 5 years. No change in therapy. Urine for microalbuminuria is been discontinued. Patient's diabetes has been controlled for years serum creatinine is have been very good no proteinuria ever. Patient's eye exam is current she had a cataract surgery in the last 6 months. Foot exam is good. Assessment & Plan (05/27/2019 4:04 PM CDT): Hemoglobin HgbA1c 6.6 without medication patient so advised no change in therapy she is on no medications. No new recommendations lady 78 years old asymptomatic with respect to diabetes. Advised her to continue to get eye exams she is coming up next month Medicare annual wellness visit, subsequent 05/27 Assessment & Plan (08/10/2024 3:08 PM DRAFTING CLERK): History and physical completed patient's health risk assessment health maintenance reviewed and addressed. Her last annual exam with me this patient has been admitted to hospital for urinary tract obstruction kidney stone perinephric abscess. Of which she has recovered from. Patient is doing well she is 84 years old she has absolutely no dementia. Assessment & Plan (08/07/2023 2:07 PM DRAFTING CLERK): History and physical completed patient's health risk assessment health maintenance reviewed in addressed. Patient is 83 years old feels well she is able to carry out activities of daily living without difficulty. She is absolutely no dementia. She underwent plastic surgery last year for skin cancer on her face and this was successful., Assessment & Plan (05/31/2022 8:52 AM CDT): Completed patient's health risk assessment health maintenance reviewed in addressed. Patient is doing well diabetes is very well controlled hemoglobin HgbA1c of 6.0. She requires no medications for diabetes. Stable coronary disease and history of intolerance to statins. Slight elevation of cholesterol. Assessment & Plan (04/24/2021 3:04 PM CDT): History and physical completed patient's health risk assessment health maintenance reviewed in addressed. Patient COVID vaccine is current. She feels well no new health problems Assessment & Plan (06/20/2020 2:54 PM CDT): History and physical completed patient's health risk assessment health maintenance addressed. Patient flu shot was 2 weeks ago at local [facility]. Order for bone density is been placed. Assessment & Plan (05/27/2019 4:06 PM CDT): Patient's health risk assessment health maintenance reviewed she needs update on immunizations. Patient advised regarding getting annual eye exam she is diabetic no other recommendations for her exam is unremarkable. Family history of cancer 02/25/2019 History of multiple allergies 02/25/2019 Neuropathy 11/05/2018 Assessment & Plan (05/31/2022 8:55 AM CDT): Patient does not report any progression symptoms. Assessment & Plan (01/20/2019 3:57 PM CDT): Patient's symptoms have improved with Cymbalta. She has appointment with Dr. Barreto neurologist in the next 48 hours. Assessment & Plan (11/05/2018 6:23 PM DRAFTING CLERK): Patient describes a neuropathy of sensation of feet x3 weeks it is improving as of today. He has had this in the past usually does not last no more than 1-2 days. Patient's diabetic is very well controlled. He sometimes has swelling in her feet does not seem temperature discomfort in the inner feet at all. No other problems present this time. Examination pulses good no significant findings present on the examination of her feet. Plans at this time check her hemoglobin HgbA1c which in the past has been very good B12 level, TSH CBC. Advised patient once results return out communicate with her regarding this. Anticipate her symptoms will resolve just has to have done in the past. Again she reports improvement today compared to yesterday Essential hypertension 02/05/2014 Overview (12/26/2016): Hypertension Assessment & Plan (08/10/2024 2:59 PM DRAFTING CLERK): Blood pressure 134/36 patient feels well.. Gap between systolic and diastolic readings. Patient feels well. We will continue present therapy valsartan 80/12.5 amlodipine 10 mg. Metoprolol 25 mg all once daily. Assessment & Plan (06/23/2024 2:23 PM CDT): Pressures main pain/well controlled amlodipine 10 mg hydralazine 100 mg daily metoprolol 25 mg valsartan 80/12.5 mg daily patient is tolerating this regimen of medication. Assessment & Plan (04/01/2024 1:28 PM CDT): DBP soft. Continue Hydralazine, Norvasc, Valsartan-HCTZ, Toprol. Monitor for need to adjust. Assessment & Plan (03/22/2024 10:26 AM CDT): DBP soft. Continue Hydralazine, Norvasc, Losartan-HCTZ. Monitor for need to adjust. Assessment & Plan (03/15/2024 11:12 AM CDT): BP with mild fluctuations. Continue Hydralazine, Norvasc, Losartan -HCTZ. Assessment & Plan (03/10/2024 8:22 AM CDT): This is chronic and stable. Please continue prescription Norvasc, hydralazine, metoprolol. Monitor vital signs. Our goal for her blood pressure is a trend of less than 150 /90; continue valsartan with hydrochlorothiazide Assessment & Plan (01/29/2024 6:23 PM CDT): Follow-up visit patient's blood pressure is 124/44 previous visits she had a 124/30 at times in office a pulse was high as 120. Last visit I reduce hydralazine from 300 mg per day down to 100. [place] some improvement but still feels fatigued worn out. This time reducing her metoprolol to 50 mg daily from previous dose of 100. I am going to hold her amlodipine. Going to see her back in approximately 3 weeks. She is appointment April with Cardiology she is to get a echocardiogram and carotid ultrasound prior to March 22. Assessment & Plan (01/08/2024 5:41 PM CDT): Patient is very wide pulse pressure we checked it twice 124 over 120/20. Patient is on hydralazine 300 mg daily reduce it to 100 mg daily see her back in a few weeks. Is feeling fatigued at her age of 83 is undetermined whether this is related to medication adjust physiological changes with chronic disease of hypertension diabetes osteoarthritis Assessment & Plan (08/07/2023 2:10 PM DRAFTING CLERK): Blood pressure is excellent no change in therapy Assessment & Plan (03/15/2023 2:46 PM CDT): Hypertension remains well controlled patient tolerating medications no change in therapy Assessment & Plan (11/28/2022 6:03 PM DRAFTING CLERK): Blood pressure well controlled. Patient's concern regarding her blood pressure went else can be done reviewed this with her and her daughter. Patient has been hypertensive over 20 years in his done very well. Assessment & Plan (05/31/2022 8:53 AM CDT): Blood pressure remains well controlled patient is tolerating medications no change in therapy. Assessment & Plan (02/28/2022 6:12 PM CDT): Hypertension well controlled patient is tolerating medication no change in therapy Assessment & Plan (11/08/2021 1:33 PM DRAFTING CLERK): Blood pressures from home reviewed there are acceptable. Patient's blood pressure today is wide range between systolic and diastolic without any precise reason. Patient's echocardiogram was reviewed there was no significant valvular disease in ejection pressure was 70-75% no change in therapy. Assessment & Plan (10/08/2021 2:13 PM DRAFTING CLERK): Blood pressure well reviewed patient now on new medication hydralazine and amlodipine again he has a follow-up appointment cardiology in the next 24 hours. No changes made in medications today Assessment & Plan (10/02/2021 9:48 AM DRAFTING CLERK): Blood pressure has been severely elevated since presentation, will replace home metoprolol with hydralazine and amlodipine at this time because of heart rate persistently in the 50s. Monitor blood pressure and adjust medications as needed. Assessment & Plan (07/05/2021 5:48 PM CDT): Medications changes discontinue hydrochlorothiazide increase losartan to 100 mg daily no other changes. Patient give me a progress report when she comes back from vacation in 2 week Assessment & Plan (04/24/2021 3:06 PM CDT): Blood pressure is consistently well controlled patient is tolerating medications no change in therapy. Assessment & Plan (12/19/2020 5:01 PM CDT): Hypertension well control no change in therapy. Assessment & Plan (09/19/2020 4:09 PM DRAFTING CLERK): Blood pressure is slightly elevated today no change in therapy. Assessment & Plan (06/20/2020 2:54 PM CDT): Hypertension well controlled patient is tolerating medications no change in therapy. Assessment & Plan (12/02/2019 1:52 PM CDT): Hypertension remains well controlled patient is tolerating medications she has no symptoms referable to hypertension continue present medication. Assessment & Plan (05/27/2019 4:03 PM CDT): Blood pressure well controlled continue present medication patient tolerating medications. Assessment & Plan (01/20/2019 3:57 PM CDT): Hypertension is unchanged. Dietary sodium restriction. Regular aerobic exercise. Continue current medications. Blood pressure will be reassessed at the next regular appointment. Assessment & Plan (11/05/2018 6:25 PM DRAFTING CLERK): Hypertension elevated today will continue reserves check on the next visit patient to a BP log sheet no change in therapy Assessment & Plan (07/14/2018 5:17 PM CDT): Hypertension is unchanged. Continue current treatment regimen. Dietary sodium restriction. Regular aerobic exercise. Continue current medications. Blood pressure will be reassessed at the next regular appointment. Assessment & Plan (01/07/2018 1:55 PM CDT): Hypertension is unchanged. Continue current treatment regimen. Dietary sodium restriction. Weight loss. Regular aerobic exercise. Continue current medications. Blood pressure will be reassessed at the next regular appointment. Assessment & Plan (07/12/2017 3:37 PM CDT): Hypertension is unchanged. Continue current treatment regimen. Dietary sodium restriction. Regular aerobic exercise. Continue current medications. Blood pressure will be reassessed at the next regular appointment. Hyperlipidemia 02/05/2014 Overview (12/27/2016): Hyperlipidemia Assessment & Plan (12/19/2020 5:01 PM CDT): Patient discontinue Livalo/cholesterol medications is however her muscle aches did not resolved. Will check a fasting lipid profile. Assessment & Plan (09/19/2020 4:11 PM DRAFTING CLERK): Patient's advised to stop her medicine with onset of milder she has some components with joint pain. She is given a progress report in 10-12 days. My male may not start her back on it a medicine for cholesterol depends on patient's 0 come after discontinue medicine with respect joint pain.. Livalo as stated not to cause myalgia. Patient give me a progress report on September 29 regarding her joint pains. Assessment & Plan (07/14/2018 5:18 PM CDT): Last lipid profile was reasonably good lipid profile from forms apart diabetes management no change in therapy. Will repeat lipid profile. Assessment & Plan (01/07/2018 1:56 PM CDT): Lipid profile is current will recheck with Physical exam this coming fall Assessment & Plan (07/12/2017 3:36 PM CDT): History of hypertension hyperlipidemia will update her lipid profile today. Will continue present medications. She takes livalo 4 milligrams daily Fibrocystic breast changes 04/28/2013 Overview (12/26/2016): Fibrocystic breast changes Lichen sclerosus of female genitalia 04/28/2013 Overview (12/26/2016): Lichen sclerosus of female genitalia History of breast cancer in female 04/28/2013 Overview (12/27/2016): Personal history of breast cancer Assessment & Plan (01/07/2018 1:57 PM CDT): Released from Hematology Oncology because of the lymph time she has been cancer free greater than 5 years patient did tell me on the last visit she had a slight elevation of the calcium level in a environmental change analyst would like for to get repeated in next few months Assessment & Plan (07/12/2017 3:37 PM CDT): History of breast cancer mammogram surveillance will continue. History of gout Resolved Problems Problem Noted Date Diagnosed Date Resolved Date Joe catheter in place 03/15/202403/22 Assessment & Plan (03/30/2024 12:07 PM CDT): Joe removed at Urology fu 03/30. Will order voiding trial to monitor for urination on own. Assessment & Plan (03/22/2024 10:30 AM CDT): Joe/Ureteral stent placed 03/04/24 - plan removal 2months. Assessment & Plan (03/15/2024 11:15 AM CDT): Joe remains in place per Urology orders. Nursing did report dark urine 03/14. Encouraged to push fluids. Denies any pain/sx of UTI. Urine clear today. Monitor. Psoas muscle abscess 03/10/2024 024 Assessment & Plan (03/30/2024 12:06 PM CDT): Removed at urology appt 03/30. Dry dressing in place. Is to fu in 3-4 weeks with Urology. Assessment & Plan (03/22/2024 10:28 AM CDT): R psoas abscess drain placed 03/01/24 -- plan removal 4-6wks. Has fu 03/30. Verifying with SS about CT appt. Assessment & Plan (03/15/2024 11:14 AM CDT): Drain remains in place. Will fu with Urology today. Uncertain of Surgery fu. Will discuss with SS. Assessment & Plan (03/10/2024 8:24 AM CDT): This is subacute. It was treated with interventional radiology drainage during hospitalization. Follow up labs ordered for Friday. In the interim continue levofloxacin and metronidazole prescription. She will also have follow up with her urologist and surgeon. The former is scheduled for the in the daughter is encouraged to keep this appointment. Diabetic neuropathy, type II diabetes mellitus 08/07/2023 03/15/2024 Assessment & Plan (03/10/2024 8:22 AM CDT): She comes to us without being under treatment. Follow up labs were ordered Assessment & Plan (01/08/2024 5:45 PM CDT): Diabetes has been well controlled for past 5 years consistently less than 7 HgbA1c. Opinion lipid profile is going to make very little difference on this patient at age 84, history of 40 years of hypertension well controlled 10 years well controlled diabetes Urinary tract infection without hematuria 03/15/2023 01/08/2024 Assessment & Plan (03/15/2023 2:48 PM CDT): Recent UTI symptoms not present today will get a urinalysis. Loose stools 11/28/2022 03/15/2023 Assessment & Plan (11/28/2022 6:06 PM DRAFTING CLERK): Advised patient use lactate when using milk products. For information from up-to-date today regarding high-fiber diet. Not having any blood in his stool or mucus in his stools. She is not having overt diarrhea. Kidney stones 12/12/2021 03/15/2024 Overview (12/12/2021): Added automatically from request for surgery [id number] Gross hematuria 12/12/2021 03/30/2024 Overview (12/12/2021): Added automatically from request for surgery [id number] Assessment & Plan (03/22/2024 10:30 AM CDT): Urine clear. Resume Xarleto. Assessment & Plan (03/18/2024 12:49 PM CDT): To joe. Will hold Xarleto. Check labs in am. Monitor. Abnormal urologic system diagnostic imaging 12/11/2021 03/15/2024 Severe malnutrition 10/03/2021 02/29/20 22 Pericardial effusion 10/02/2021 022 Assessment & Plan (10/02/2021 9:49 AM DRAFTING CLERK): Seen on CT on presentation. Does not seem to be hemodynamically significant. Echocardiogram ordered and Cardiology consulted. Right renal mass 10/02/2021 04/01/2024 Assessment & Plan (10/08/2021 2:12 PM DRAFTING CLERK): Referral to urologist sent by this office. Assessment & Plan (10/02/2021 9:47 AM DRAFTING CLERK): Seen on CT on presentation. CT urogram ordered per radiology recs. Urology consulted. Nausea and vomiting in adult 10/01/2021 03/15/2023 Assessment & Plan (10/08/2021 1:45 PM DRAFTING CLERK): Nausea vomiting resolved once UTI was treated Assessment & Plan (10/01/2021 10:33 AM DRAFTING CLERK): Nausea and vomiting started around September 09 is gotten progressively worse. Patient cannot hold down solids. Denies any blood in his stools or vomiting blood. No vomiting or bowel. No abdominal pain. Patient's unstable in appearance her typical self referred to emergency room for hospital admission EGD lab workup dehydration etc.. Dizziness 10/01/2021 03/15/2023 Assessment & Plan (10/01/2021 10:34 AM DRAFTING CLERK): Dizziness for last 2-3 days patient has been slumping down on a couch or bed are when she feels like she is going to fall she will lay there into she felt better. He has volume depletion she has been vomiting unable to hold down solid foods she is referred to the emergency room. She answers all questions very slowly for 6 week this is very different for her. Acute cystitis with hematuria 10/01/2021 02/28/2022 Assessment & Plan (10/08/2021 1:44 PM DRAFTING CLERK): Patient's referral with Urology cystoscopy is scheduled heart to be done. 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 Discovered on recent hospitalization Assessment & Plan (10/02/2021 9:52 AM DRAFTING CLERK): UA on presentation showed pyuria with 4+ leuk esterase and 3+ bacteria present. Patient's lethargy and decreased appetite are likely symptoms infection, though it seems unlikely to explain the nausea, vomiting, and diarrhea that were present for approximately the past 2 weeks in resolved 3 days ago. A COVID-19 test at [facility] pharmacy in [place] was reportedly negative, but the symptoms are suspicious so another test was ordered this morning. CXR shows only minimal right basilar airspace opacities most consistent with atelectasis, imaging personally reviewed. Very low suspicion of pneumonia with no significant shortness of breath, cough, or fever. Continue Levaquin day 2 while awaiting urine culture results. Gout of left foot 07/05/2021 05/31/2022 Assessment & Plan (07/05/2021 5:48 PM CDT): I am discontinue hydrochlorothiazide which is a very small doses 12.5 mg but it may be contributing some to this patient's gout. Patient did not take the medication/generic brand Mitigare substitute for colchicine this cause significant adverse reactions. Patient is pretty much asymptomatic minimal pain will check a uric acid level at this time. Patient does not want to try prednisone any breakthrough symptoms she had a grandson who had a significant personality change arm sure brief dose of prednisone. Trochanteric bursitis of left hip 08/21/2020 04/24/2021 Assessment & Plan (08/21/2020 3:48 PM DRAFTING CLERK): Patient having pain 3 4 days a over the iliopsoas muscle. Pain is worse with attempting to lift her leg up crossing legs gives her pain. No history of trauma minimal back pain no knee pain patient walks with a slight limp. No redness no swelling increase heat to the area.. Patient was shown illustrations of this muscle explain his she had inflammation tendinitis therapy advised that he has start with arthritis Tylenol and moist heat to the area. Patient was advised remain active. Swollen feet 01/19/2019 08/07/2023 Assessment & Plan (05/03/2021 2:46 PM CDT): Both feet are swollen right more than left over the with arch on the right warm some redness. Is on a diuretic possible of presentation gout. Plan uric acid level, sed rate. Medrol dose Rx sent progress report next week Carpal tunnel syndrome on left 01/07/2018 12/02/2019 Overview (01/07/2018): Uflf-bz-plaolzny discomfort no surgical intervention needed if problems become worse I will refer this patient to physical therapy. Type 2 diabetes mellitus wit h hyperosmolarity without coma, without long-term current use of insulin 07/01/2017 12/02/2019 Assessment & Plan (01/20/2019 3:58 PM CDT): Patient's diabetes very well control no change in plans in therapy. No laboratory studies indicated on today's date. Assessment & Plan (11/05/2018 6:25 PM DRAFTING CLERK): Data hemoglobin HgbA1c today patient is having some neuropathy symptoms that have been going on for about 3 weeks previous A1cs have been excellent. Check B12 level patient is on metformin. Assessment & Plan (07/14/2018 5:17 PM CDT): Last hemoglobin HgbA1c was 7.5 no change in therapy will get an update on her he HgbA1c patient has no neuropathy problem . She needs an eye exam she is so advised no change in therapy Assessment & Plan (01/07/2018 1:55 PM CDT): . Hemoglobin HgbA1c 5.9 without medication no change in therapy. Assessment & Plan (07/12/2017 3:36 PM CDT): Patient's diabetic for several years has not required medication for several years A1cs have been less than 6.5. A hemoglobin HgbA1c today. No symptoms referable to diabetes. Elevated troponin 01/08/2024 Hypokalemia 10/08/2021 Immunizations Immunization Administration Dates Next Due Influenza, Quad, Adjuvantate d, Intramuscular 07/31/2021 Influenza, Quadrivalent, Hig h Dose, Preservative Free, Intrr 07/03/2023,06/30/2022,05/19/2020 Influenza, Quadrivalent, Spl it, Preservative Free, Intramuscular 07/14/2018 Influenza, Trivalent, High D ose, Split, Preservative Free, Intramuscular 07/21/2024,08/06/2017,07/11/2016,06/22,07/05/2011 Influenza, Trivalent, IM (MDV) 06/22/2014 PPD TEST 03/11/2024 [employer] SARS-CoV-2 Monovalent Vaccination (12+ Yrs) PURPLE 12/01/2020,12/01/2020,11/10/2020,11/10 Pneumococcal Conjugate PCV 13 07/11/2016 Pneumococcal Polysaccharide PPV23 07/14/2018 RSV Vaccine, Pref, Recombina nt, Subunit, Adjuvanted, PF, IM (Arexvy) 12/26/2023 Tdap 01/28/2019 ZOSTER Recombinant 09/30/2019,09/30/2019, 019 Surgical History Surgery Date Site/Laterality Comments TUBAL LIGATION 1959's Tubal ligation OTHER SURGICAL HISTORY Ectopic , ruptured: Salpingectomy BREAST SURGERY 09/22/2009 - 09/21/2010 Rt breast cancer: Femara & lumpectomy COLONOSCOPY 09/22/2012 - 09/21/2013 Medical History Medical History Date Comments Hx Other Medical 2009 Rt breast cance r; Outcome: free of disease Hx Other Medical Ectopic pregnan cy, ruptured; Comments: RED 05/20/2014 - Cancer (HCC) breast-lumpectom y Headache, tension-type Hypertension Migraine Hyperlipemia Kidney stones Arrhythmia atrial fibrillat ion Delayed emergence from gener al anesthesia Gout Family History Medical History Relation Name Comments Colon cancer Cousin Cancer, colon; Cancer Father Hypertension Father Migraines Father Stroke Father Colon cancer Father's Brother Cancer, col on; Dementia Mother Depression Mother Anesthesia problems Neg Hx Relation Name Status Comments Cousin Father Father's Brother Mother Social History Tobacco Use Types Packs/Day Years Used Date Smoking Tobacco: Never Passive Smoke Exposure: Past Smokeless Tobacco: Never Tobacco Cessation:Counseling Given: Not Answered Alcohol Use Standard Drinks/Week Comments Yes 0 (1 standard drink = 0.6 oz pur e alcohol) [facility] Utilities Answer Date Recorded In the past 12 months has [employer] electric, gas, oil, or water [employer] threatened to shut off services in your home? No 04/08/2024 Social Connection and Isolat ion Panel [NHANES] Answer Date Recorded In a typical week, how many times do you talk on the phone with family, friends, or neighbors? More than three times a week 04/08/2024 How often do you get togethe r with friends or relatives? Three times a week 04/08/2024 How often do you attend chur ch or anglican services? 1 to 4 times per year 04/08/2024 Do you belong to any clubs o r organizations such as spiritism groups, unions, fraternal or athletic groups, or school groups? Yes 04/08/2024 How often do you attend meet ings of the clubs or organizations you belong to? More than 4 times per year 04/08/2024 Are you , , di vorced, , never , or living with a partner? 04/08/2024 AUDIT-C Answer Date Recorded Q1: How often do you have a drink containing alc ohol? 2-4 times a month 02/14/2023 Q2: How many drinks containi ng alcohol do you have on a typical day when you are drinking? 1 or 2 02/14/2023 Q3: How often do you have si x or more drinks on one occasion? Never 02/14/2023 Overall Financial Resource Strain (CARDIA) Answe r Date Recorded How hard is it for you to pa y for the very basics like food, housing, medical care, and heating? Not hard at all 04/08/2024 PHQ-2 Answer Date Recorded PHQ-2 Total Score (If total score is 3 or more points, staff should administer the PHQ-9) 0 08/10/2024 Hunger Vital Sign Answer Date Recorded Within the past 12 months, y ou worried that your food would run out before you got the money to buy more. Never true 04/08/20 24 Within the past 12 months, t he food you bought just didn't last and you didn't have money to get more. Never true 04/08/2024 PRAPARE - Transportation Answer Date Re corded In the past 12 months, has l ack of transportation kept you from medical appointments or from getting medications? No 03/22 In the past 12 months, has l ack of transportation kept you from meetings, work, or from getting things needed for daily living? No 04/08/2024 [id number]|2025-02-01 13:54:00|2025-02-01 13:54:00|XMS_ITS|BKG DANELSONON|External Medical Summaries|[id number]|" Encounter Summary Created on: February 01, 2025 Gely Hi : 1940 Sex: Female Author Organization [facility] Address [address] [place] [address] Phone Care Team Providers Care Schedule Maker Name Role Phone Osmel Moe MD Primary Care Provider [phone] Gomez Raymond MD Unavailable [phone] James Suarez MD Unavailable [phone] Ramo Squires MD Unavailable [phone] James Juarez MD Unavailable [phone] Sera Vieira RN Unavailable [phone] Encounter Details Date Type Department Care Team (Late st Contact Info) Description 02/27/2023 Orders Only [facility] [address] [place] [address] Scanning, Provider Social History Tobacco Use Types Packs/Day Years Used Date Smoking Tobacco: Never Passive Smoke Exposure: Past Smokeless Tobacco: Never Alcohol Use Standard Drinks/Week Comments Yes 0 (1 standard drink = 0.6 oz pur e alcohol) Social Connection and Isolat ion Panel [NHANES] Answer Date Recorded In a typical week, how many times do you talk on the phone with family, friends, or neighbors? More than three times a week 10/08/2021 How often do you get togethe r with friends or relatives? More than three times a week 10/08/2021 How often do you attend chur or anglican services? More than 4 times per year 10/08/2021 Do you belong to any clubs o r organizations such as spiritism groups, unions, fraternal or athletic groups, or school groups? Yes 10/08/2021 How often do you attend meet ings of the clubs or organizations you belong to? More than 4 times per year 10/08/2021 Are you , , di vorced, , never , or living with a partner? 10/08/2021 AUDIT-C Answer Date Recorded Q1: How often do you have a drink containing alc ohol? 2-4 times a month 02/14/2023 Q2: How many drinks containi ng alcohol do you have on a typical day when you are drinking? 1 or 2 02/14/2023 Q3: How often do you have si x or more drinks on one occasion? Never 02/14/2023 Overall Financial Resource Strain (CARDIA) Answe r Date Recorded How hard is it for you to pa y for the very basics like food, housing, medical care, and heating? Not hard at all 10/08/2021 PHQ-2 Answer Date Recorded PHQ-2 Total Score (If total score is 3 or more points, staff should administer the PHQ-9) 0 05/30/2022 PRAPARE - Transportation Answer Date Re corded In the past 12 months, has l ack of transportation kept you from medical appointments or from getting medications? No 09/22 In the past 12 months, has l ack of transportation kept you from meetings, work, or from getting things needed for daily living? No 10/08/2021 Housing Stability Vital Sign Answer Kole e Recorded In the last 12 months, was t here a time when you were not able to pay the mortgage or rent on time? No 10/16/2021 In the last 12 months, how many places have you lived? 1 10/16/2021 In the last 12 months, was t here a time when you did not have a steady place to sleep or slept in a longterm (including now)? No 10/16/2021 Personal Safety Answer Date Recorded Have you ever been in or are you currently in a harmful physical or emotional relationship or is someone making you feel afraid or unsafe? Denies 02/25/2023 Comments No Sex and Gender Information Value Date Recorded Sex Assigned at Not on file Legal Sex Female 3:07 PM DRAFTING CLERK Gender Identity Not on file Sexual Orientation Not on file Occupation Industry Job Start Date Job End Date Retired Not on file Not on file Not on file documented as of this encounter Plan of Treatment Not on file documented as of this encounter Procedures Procedure Name Priority Date/Time Associated Diagnosis Comments SCAN - RADIOLOGY/IMAGING 02/27/2023 documented in this encounter Results * SCAN - RADIOLOGY/IMAGING (02/27/2023) Anatomical Region Laterality Modality Other us Provider Scanning Edited Result - Final documented in this encounter Visit Diagnoses Not on filedocumented in this encounter Additional Health Concerns Infection Onset Date Last Indicated Resolved Time COVID: Suspected 02/28/2024 02/28/2024 02/28/2024 5:05 PM CDT documented as of this encounter Care Teams Schedule Maker Relationship Specialty Start Date End Date Osmel Moe MD PCP - General 12/20/16 Gomez Raymond MD Consulting Physician Urology 10/04/21 James Suarez MD Consulting Physician Cardiovascular Disease 10/05/21 Ramo Squires MD Consulting Physician Urology 01/23/22 James Juarez MD Referring Physician Dermatology 03/03/23 Sera Vieira, RN [address] [place] [address] DR MERIDA [address] [place] [id number] Bankruptcy Processor 04/08/24 05/06/24 documented as of this encounter "
--- OUTSIDE RECORDS SUMMARY | 2025-02-01 13:54 | XMS_ITS | Encounter Summary ---
Author Organization [facility] Healthcare Address [address] [place] [address] Care Team Providers Care Assistant Nurse Manager Name Role Phone Osmel Moe MD Primary Care Provider + [phone] Gomez Raymond MD Unavailable [phone] James Suarez MD Unavailable [phone] Ramo Squires MD Unavailable [phone] James Juarez MD Unavailable Sera Vieira RN Unavailable [phone] Encounter Details Date Type Department Care Team (Late st Contact Info) Description 02/17/2024 Orders Only [facility] [address] [place] [address] Scanning, Provider Social History Tobacco [...] How often do you attend chur or zoroastrianism services? More than 4 times per year 10/08/2021 Do you belong to any clubs o r organizations such as roman catholic groups, unions, fraternal or athletic groups, or [...] more points, staff should administer the PHQ-9) 2 08/07/2023 PRAPARE - Transportation Answer Date Re corded [...] place to sleep or slept in a chcf (including now)? No 10/16/2021 Personal Safety Answer Date Recorded Have you ever been in or are you currently in a harmful physical or emotional relationship or is someone making you feel afraid or unsafe? Denies 02/25/2023 Comments No Sex and Gender Information Value Date Recorded Sex Assigned at Not on file Legal Sex Female 3:07 PM INCOMING INSPECTOR Gender Identity Not on file Sexual Orientation Not on file Occupation Industry Job Start Date Job End Date Retired Not on file Not on file Not on file documented as of this encounter Plan of Treatment Not on file documented as of this encounter Procedures Procedure Name Priority Date/Time Associated Diagnosis Comments SCAN - RADIOLOGY/IMAGING 02/17/2024 SCAN - LABS 02/17/2024 documented in this encounter Results * SCAN - LABS (02/17/2024) us Provider Scanning Final Result * SCAN - RADIOLOGY/IMAGING (02/17/2024) Anatomical Region Laterality Modality Other us Provider Scanning Final Result documented in this encounter Visit Diagnoses Not on filedocumented in this encounter Additional Health Concerns Infection Onset Date Last Indicated Resolved Time COVID: Suspected 02/28/2024 02/28/2024 02/28/2024 5:05 PM CDT documented as of this encounter Care Teams Assistant Nurse Manager Relationship Specialty Start Date End Date Osmel Moe MD PCP - General 12/20/16 Gomez Raymond MD Consulting Physician Urology 10/04/21 James Suarez MD Consulting Physician Cardiovascular Disease 10/05/21 Ramo Squires MD Consulting Physician Urology 01/23/22 James Juarez MD Referring Physician Dermatology 03/03/23 Sera Vieira RN [address] [place] [address] [address] MERIDA [address] [place] [id number] Mri Supervisor 04/08/24 05/06/24 documented as of this encounter
--- OUTSIDE RECORDS SUMMARY | 2025-02-01 13:54 | XMS_ITS | Encounter Summary ---
Author Organization [facility] Address [address] [place] [address] Phone Care Team Providers Care Liner Worker Name Role Phone Osmel Moe MD Primary Care Provider + [phone] Gomez Raymond MD Unavailable [phone] James Suaerz MD Unavailable [phone] Ramo Squires MD Unavailable [phone] James Juarez MD Unavailable Sera Vieira RN Unavailable [phone] Encounter Details Date Type Department Care Team (Late st Contact Info) Description 12/07/2021 Orders Only [facility] [address] [place] [address] Scanning, Provider Social History Tobacco Use Types Packs/Day Years Used Date Smoking Tobacco: Never Smokeless Tobacco: Never Alcohol Use Standard Drinks/Week [...] How often do you attend chur or anabaptism services? More than 4 times per year 10/08/2021 Do you belong to any clubs o r organizations such as congregation groups, unions, fraternal or athletic groups, or school groups? Yes 10/08/2021 How often do you attend meet ings of the clubs or organizations you belong to? More than 4 times per year 10/08/2021 Are you , , di vorced, , never , or living with a partner? 10/08/2021 AUDIT-C Answer Date Recorded Q1: How often do you have a drink containing alc ohol? Monthly or less 12/11/2021 Q2: How many drinks containi ng alcohol do you have on a typical day when you are drinking? 1 or 2 12/11/2021 Q3: How often do you have si x or more drinks on one occasion? Never 12/11/2021 Overall Financial Resource Strain (CARDIA) Answe r Date Recorded How hard is it for you to pa y for the very basics like food, housing, medical care, and heating? Not hard at all 10/08/2021 PHQ-2 Answer Date Recorded PHQ-2 Total Score (If total score is 3 or more points, staff should administer the PHQ-9) 0 06/20/2020 PRAPARE - Transportation Answer Date Re corded [...] place to sleep or slept in a usp (including now)? 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 Gender Identity Not on file Sexual Orientation Not on file Occupation Industry Job Start Date Job End Date Retired Not on file Not on file Not on file documented as of this encounter Plan of Treatment Not on file documented as of this encounter Procedures Procedure Name Priority Date/Time Associated Diagnosis Comments SCAN - RADIOLOGY/IMAGING 12/07/2021 CARDIOLOGY DOCUMENT SCAN 12/07/2021 documented in this encounter Results * SCAN - RADIOLOGY/IMAGING (12/07/2021) Anatomical Region Laterality Modality Other us Provider Scanning Final Result * SCAN - CARDIOLOGY (12/07/2021) Anatomical Region Laterality Modality Other us Provider Scanning CV CARDIAC SERVICES PROCEDURES Edited Result - Final documented in this encounter Visit Diagnoses Not on filedocumented in this encounter Additional Health Concerns Infection Onset Date Last Indicated Resolved Time COVID: Suspected 02/28/2024 02/28/2024 02/28/2024 5:05 PM CDT documented as of this encounter Care Teams Liner Worker Relationship Specialty Start Date End Date Osmel Moe MD PCP - General 12/20/16 Gomez Raymond MD Consulting Physician Urology 10/04/21 James Suarez MD Consulting Physician Cardiovascular Disease 10/05/21 Ramo Squires MD Consulting Physician Urology 01/23/22 James Juarez MD Referring Physician Dermatology 03/03/23 Sera Vieira RN [address] [place] [address] [address] MER[address] [place] [id number] Electric Motor Winders Assembler 04/08/24 05/06/24 documented as of this encounter
--- OUTSIDE RECORDS SUMMARY | 2025-02-01 13:54 | XMS_ITS | Referral Summary ---
Author Organization [facility] Address [address] [place] [address] Care Team Providers Care Broadcast Producer Name Role Phone Osmel Moe MD Primary Care Provider [phone] Gomez Raymond MD Unavailable [phone] James Suarez MD Unavailable [phone] Ramo Squires MD Unavailable [phone] James Juarez MD Unavailable [phone] Allergies Active Allergy Reactions Criticality Noted Date [...] 03/10/2024 Assessment & Plan (08/10/2024 2:56 PM DEPUTY DIRECTOR OF FINANCE): Patient advised me abscesses resolved through Wound [...] (07/31/2022): Added automatically from request for surgery [id number] Melanocytic nevus of right upper extremity 07/31 Overview (07/31/2022): Added automatically from request for surgery [id number] Atrial fibrillation 11/08/2021 Assessment & Plan (06/23/2024 2:24 PM CDT): Chronic problems stable patient remains on 15 mg daily Assessment & Plan (03/10/2024 8:20 AM CDT): This is chronic stable. Please continue Xarelto. Monitor vital signs for RVR. Assessment & Plan (11/28/2022 6:04 PM DEPUTY DIRECTOR OF FINANCE): Patient's atrial fibrillation she applied for life insurance she was declined because of atrial fibrillation and protein in the urine. She want to make sure everything was being done regarding her problems. I explained to her atrial fibrillation importance of controlling rate as well as anticoagulation therapy. Patient is here with her daughter understood information given. Assessment & Plan (11/08/2021 1:35 PM DEPUTY DIRECTOR OF FINANCE): Patient is seen by machine adjuster leader case trim last 30 days she remains on Eliquis [...] procedure Assessment & Plan (10/08/2021 1:43 PM DEPUTY DIRECTOR OF FINANCE): Hospital follow-up admission date 10/02/2021 discharge date 10/05/2021.. Diagnosis acute cystitis with hematuria. 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 Patient has been given referral to [facility] urologist a few weeks. Patient's blood [...] 09/20/2020 Assessment & Plan (09/20/2020 3:49 PM DEPUTY DIRECTOR OF FINANCE): Patient developed pain right shoulder after breast [...] 09/19/2020 Assessment & Plan (08/07/2023 2:11 PM DEPUTY DIRECTOR OF FINANCE): No complaints of joint pains whatsoever at [...] day helps.. Recommend patient go to a [facility] physical therapy see if stretching exercise may help her leg and possibly a shoulders. Assessment & Plan (09/19/2020 4:08 PM DEPUTY DIRECTOR OF FINANCE): Patient having joint pains multiple sites and [...] 9 Assessment & Plan (08/10/2024 3:07 PM DEPUTY DIRECTOR OF FINANCE): Patient advised me she had an eye exam 1 week ago no diabetic eye disease found medical records report pending. Diabetes very well controlled hemoglobin HgbA1c less than 7 for the past 4 years. Current HgbA1c is results pending Assessment & Plan (08/07/2023 2:12 PM DEPUTY DIRECTOR OF FINANCE): Diabetes has been stable no HgbA1c today. [...] (H) Assessment & Plan (10/02/2021 9:48 AM DEPUTY DIRECTOR OF FINANCE): Diet controlled, monitor glucose while inpatient and [...] 05/27 Assessment & Plan (08/10/2024 3:08 PM DEPUTY DIRECTOR OF FINANCE): History and physical completed patient's health risk assessment health maintenance reviewed and addressed. Her last annual exam with me this patient has been admitted to hospital for urinary tract obstruction kidney stone perinephric abscess. Of which she has recovered from. Patient is doing well she is 84 years old she has absolutely no dementia. Assessment & Plan (08/07/2023 2:07 PM DEPUTY DIRECTOR OF FINANCE): History and physical completed patient's health risk [...] shot was 2 weeks ago at local [facility]. Order for bone density is been [...] hours. Assessment & Plan (11/05/2018 6:23 PM DEPUTY DIRECTOR OF FINANCE): Patient describes a neuropathy of sensation of [...] Hypertension Assessment & Plan (08/10/2024 2:59 PM DEPUTY DIRECTOR OF FINANCE): Blood pressure 134/36 patient feels well.. Gap [...] 300 mg per day down to 100. [place] some improvement but still feels fatigued worn [...] osteoarthritis Assessment & Plan (08/07/2023 2:10 PM DEPUTY DIRECTOR OF FINANCE): Blood pressure is excellent no change in therapy Assessment & Plan (03/15/2023 2:46 PM CDT): Hypertension remains well controlled patient tolerating medications no change in therapy Assessment & Plan (11/28/2022 6:03 PM DEPUTY DIRECTOR OF FINANCE): Blood pressure well controlled. Patient's concern regarding [...] therapy Assessment & Plan (11/08/2021 1:33 PM DEPUTY DIRECTOR OF FINANCE): Blood pressures from home reviewed there are acceptable. Patient's blood pressure today is wide range between systolic and diastolic without any precise reason. Patient's echocardiogram was reviewed there was no significant valvular disease in ejection pressure was 70-75% no change in therapy. Assessment & Plan (10/08/2021 2:13 PM DEPUTY DIRECTOR OF FINANCE): Blood pressure well reviewed patient now on new medication hydralazine and amlodipine again he has a follow-up appointment cardiology in the next 24 hours. No changes made in medications today Assessment & Plan (10/02/2021 9:48 AM DEPUTY DIRECTOR OF FINANCE): Blood pressure has been severely elevated since [...] therapy. Assessment & Plan (09/19/2020 4:09 PM DEPUTY DIRECTOR OF FINANCE): Blood pressure is slightly elevated today no [...] appointment. Assessment & Plan (11/05/2018 6:25 PM DEPUTY DIRECTOR OF FINANCE): Hypertension elevated today will continue reserves check [...] profile. 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 For information from up-to-date today regarding high-fiber diet. Not having any blood in his stool or mucus in his stools. She is not having overt diarrhea. Kidney stones 12/12/2021 03/15/2024 Overview (12/12/2021): Added automatically from request for surgery [id number] Gross hematuria 12/12/2021 03/30/2024 Overview (12/12/2021): Added automatically from request for surgery [id number] Assessment & Plan (03/22/2024 10:30 AM CDT): Urine clear. Resume Xarleto. Assessment & Plan (03/18/2024 12:49 PM CDT): To joe. Will hold Xarleto. Check labs in am. Monitor. Abnormal urologic system diagnostic imaging 12/11/2021 03/15/2024 Severe malnutrition 10/03/2021 02/29/20 22 Pericardial effusion 10/02/2021 022 Assessment & Plan (10/02/2021 9:49 AM DEPUTY DIRECTOR OF FINANCE): Seen on CT on presentation. Does not seem to be hemodynamically significant. Echocardiogram ordered and Cardiology consulted. Right renal mass 10/02/2021 04/01/2024 Assessment & Plan (10/08/2021 2:12 PM DEPUTY DIRECTOR OF FINANCE): Referral to urologist sent by this office. Assessment & Plan (10/02/2021 9:47 AM DEPUTY DIRECTOR OF FINANCE): Seen on CT on presentation. CT urogram ordered per radiology recs. Urology consulted. Nausea and vomiting in adult 10/01/2021 03/15/2023 Assessment & Plan (10/08/2021 1:45 PM DEPUTY DIRECTOR OF FINANCE): Nausea vomiting resolved once UTI was treated Assessment & Plan (10/01/2021 10:33 AM DEPUTY DIRECTOR OF FINANCE): Nausea and vomiting started around September 09 is gotten progressively worse. Patient cannot hold down solids. Denies any blood in his stools or vomiting blood. No vomiting or bowel. No abdominal pain. Patient's unstable in appearance her typical self referred to emergency room for hospital admission EGD lab workup dehydration etc.. Dizziness 10/01/2021 03/15/2023 Assessment & Plan (10/01/2021 10:34 AM DEPUTY DIRECTOR OF FINANCE): Dizziness for last 2-3 days patient has [...] 02/28/2022 Assessment & Plan (10/08/2021 1:44 PM DEPUTY DIRECTOR OF FINANCE): Patient's referral with Urology cystoscopy is scheduled heart to be done. 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 Discovered on recent hospitalization Assessment & Plan (10/02/2021 9:52 AM DEPUTY DIRECTOR OF FINANCE): UA on presentation showed pyuria with 4+ leuk esterase and 3+ bacteria present. Patient's lethargy and decreased appetite are likely symptoms infection, though it seems unlikely to explain the nausea, vomiting, and diarrhea that were present for approximately the past 2 weeks in resolved 3 days ago. A COVID-19 test at [facility] pharmacy in [place] was reportedly negative, but the symptoms are [...] 04/24/2021 Assessment & Plan (08/21/2020 3:48 PM DEPUTY DIRECTOR OF FINANCE): Patient having pain 3 4 days a [...] syndrome on left 01/07/2018 12/02/2019 Overview (01/07/2018): Ljoq-[id number] discomfort no surgical intervention needed if problems [...] date. Assessment & Plan (11/05/2018 6:25 PM DEPUTY DIRECTOR OF FINANCE): Data hemoglobin HgbA1c today patient is having [...] Trivalent, IM (MDV) 06/22/2014 PPD TEST 03/11/2024 Exhbit SARS-CoV-2 Monovalent Vaccination (12+ Yrs) PURPLE 12/01/2020,12/01/2020,11/10/2020,11/10 Pneumococcal Conjugate PCV 13 07/11/2016 Pneumococcal Polysaccharide PPV23 07/14/2018 RSV Vaccine, Pref, Recombina nt, Subunit, Adjuvanted, PF, IM (Arexvy) 12/26/2023 Tdap 01/28/2019 ZOSTER Recombinant 09/30/2019,09/30/2019, 019 Social History Tobacco Use Types Packs/Day Years Used Date Smoking Tobacco: Never Passive Smoke Exposure: Past Smokeless Tobacco: Never Tobacco Cessation:Counseling Given: Not Answered Alcohol Use Standard Drinks/Week Comments Yes 0 (1 standard drink = 0.6 oz pur e alcohol) [facility] Utilities Answer Date Recorded In the past 12 months has e electric, gas, oil, or water company threatened to shut off services in your [...] often do you attend chur ch or restorationist services? 1 to 4 times per year 04/08/2024 Do you belong to any clubs o r organizations such as taoist groups, unions, fraternal or athletic groups, or [...] things needed for daily living? No 04/08/2024 Housing Stability Vital Sign Answer Kole e [...] place to sleep or slept in a long term (including now)? No 10/16/2021 Housing Stability Vital Sign Answer Kole e Recorded In the last 12 months, was t here a time when you were not able to pay the mortgage or rent on time? No 04/08/2024 In the past 12 months, how m any times have you moved where you were living? 1 04/08/2024 At any time in the past 12 m [place], were you homeless or living in a long term (including now)? No 04/08/2024 Personal Safety Answer Date Recorded Have you ever been in or are you currently in a harmful physical or emotional relationship or is someone making you feel afraid or unsafe? Patient unable to answer 02/28/2024 Comments No Sex and Gender Information Value Date Recorded Sex Assigned at Not on file Legal Sex Female 3:07 PM DEPUTY DIRECTOR OF FINANCE Gender Identity Not on file Sexual Orientation Not on file Occupation Industry Job Start Date Job End Date Retired Not on file Not on file Not on file Last Filed Vital Signs Vital Sign Reading Time Taken Comments Blood Pressure 134/36 08/10/2024 11:05 AM DEPUTY DIRECTOR OF FINANCE Pulse 59 08/10/2024 11:05 AM DEPUTY DIRECTOR OF FINANCE Temperature 36.3 C (97.3 F) 08/10/2024 11:05 AM DEPUTY DIRECTOR OF FINANCE Respiratory Rate 16 08/10/2024 11:05 AM DEPUTY DIRECTOR OF FINANCE Oxygen Satur [id number]|2025-02-01 13:54:00|2025-02-01 13:54:00|XMS_ITS|NAIMA SAMANO|External Medical Summaries|[id number]|" Oncology Summary Created on: February 01, 2025 Gely Hi : 1940 Sex: Female Author Organization [facility] Address [address] [place] [address] Care Team Providers Care Broadcast Producer Name Role Phone Osmel Moe MD Primary Care Provider [phone] Gomez Raymond MD Unavailable [phone] James Suarez MD Unavailable [phone] Ramo Squires MD Unavailable [phone] James Juarez MD Unavailable [phone] Active Problems Problem Noted Date Diagnosed Date Perinephric abscess 03/10/2024 Assessment & Plan (08/10/2024 2:56 PM DEPUTY DIRECTOR OF FINANCE): Patient advised me abscesses resolved through Wound [...] (07/31/2022): Added automatically from request for surgery [id number] Melanocytic nevus of right upper extremity 07/31 Overview (07/31/2022): Added automatically from request for surgery [id number] Atrial fibrillation 11/08/2021 Assessment & Plan (06/23/2024 2:24 PM CDT): Chronic problems stable patient remains on 15 mg daily Assessment & Plan (03/10/2024 8:20 AM CDT): This is chronic stable. Please continue Xarelto. Monitor vital signs for RVR. Assessment & Plan (11/28/2022 6:04 PM DEPUTY DIRECTOR OF FINANCE): Patient's atrial fibrillation she applied for life insurance she was declined because of atrial fibrillation and protein in the urine. She want to make sure everything was being done regarding her problems. I explained to her atrial fibrillation importance of controlling rate as well as anticoagulation therapy. Patient is here with her daughter understood information given. Assessment & Plan (11/08/2021 1:35 PM DEPUTY DIRECTOR OF FINANCE): Patient is seen by machine adjuster leader case trim last 30 days she remains on Eliquis [...] procedure Assessment & Plan (10/08/2021 1:43 PM DEPUTY DIRECTOR OF FINANCE): Hospital follow-up admission date 10/02/2021 discharge date 10/05/2021.. Diagnosis acute cystitis with hematuria. 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 Patient has been given referral to [facility] urologist a few weeks. Patient's blood [...] 09/20/2020 Assessment & Plan (09/20/2020 3:49 PM DEPUTY DIRECTOR OF FINANCE): Patient developed pain right shoulder after breast [...] 09/19/2020 Assessment & Plan (08/07/2023 2:11 PM DEPUTY DIRECTOR OF FINANCE): No complaints of joint pains whatsoever at [...] day helps.. Recommend patient go to a [facility] physical therapy see if stretching exercise may help her leg and possibly a shoulders. Assessment & Plan (09/19/2020 4:08 PM DEPUTY DIRECTOR OF FINANCE): Patient having joint pains multiple sites and yesterday was a neck and shoulders today's are time sometimes is a her legs.. His problems getting up and down out of chairs once she has completed a process she is a back to baseline with little to no pain. This started several months ago.. At this time as this patient on the whole [facility] it could be aggravating the problem but I am not convinced it is calls her myalgia and joint pain. She is using Tylenol multiple times a day without much benefit. Diabetes mellitus without complication 9 Assessment & Plan (08/10/2024 3:07 PM DEPUTY DIRECTOR OF FINANCE): Patient advised me she had an eye exam 1 week ago no diabetic eye disease found medical records report pending. Diabetes very well controlled hemoglobin HgbA1c less than 7 for the past 4 years. Current HgbA1c is results pending Assessment & Plan (08/07/2023 2:12 PM DEPUTY DIRECTOR OF FINANCE): Diabetes has been stable no HgbA1c today. [...] (H) Assessment & Plan (10/02/2021 9:48 AM DEPUTY DIRECTOR OF FINANCE): Diet controlled, monitor glucose while inpatient and [...] 05/27 Assessment & Plan (08/10/2024 3:08 PM DEPUTY DIRECTOR OF FINANCE): History and physical completed patient's health risk assessment health maintenance reviewed and addressed. Her last annual exam with me this patient has been admitted to hospital for urinary tract obstruction kidney stone perinephric abscess. Of which she has recovered from. Patient is doing well she is 84 years old she has absolutely no dementia. Assessment & Plan (08/07/2023 2:07 PM DEPUTY DIRECTOR OF FINANCE): History and physical completed patient's health risk [...] shot was 2 weeks ago at local [facility]. Order for bone density is been placed. [...] hours. Assessment & Plan (11/05/2018 6:23 PM DEPUTY DIRECTOR OF FINANCE): Patient describes a neuropathy of sensation of [...] Hypertension Assessment & Plan (08/10/2024 2:59 PM DEPUTY DIRECTOR OF FINANCE): Blood pressure 134/36 patient feels well.. Gap [...] 300 mg per day down to 100. [place] some improvement but still feels fatigued worn [...] osteoarthritis Assessment & Plan (08/07/2023 2:10 PM DEPUTY DIRECTOR OF FINANCE): Blood pressure is excellent no change in therapy Assessment & Plan (03/15/2023 2:46 PM CDT): Hypertension remains well controlled patient tolerating medications no change in therapy Assessment & Plan (11/28/2022 6:03 PM DEPUTY DIRECTOR OF FINANCE): Blood pressure well controlled. Patient's concern regarding [...] therapy Assessment & Plan (11/08/2021 1:33 PM DEPUTY DIRECTOR OF FINANCE): Blood pressures from home reviewed there are acceptable. Patient's blood pressure today is wide range between systolic and diastolic without any precise reason. Patient's echocardiogram was reviewed there was no significant valvular disease in ejection pressure was 70-75% no change in therapy. Assessment & Plan (10/08/2021 2:13 PM DEPUTY DIRECTOR OF FINANCE): Blood pressure well reviewed patient now on new medication hydralazine and amlodipine again he has a follow-up appointment cardiology in the next 24 hours. No changes made in medications today Assessment & Plan (10/02/2021 9:48 AM DEPUTY DIRECTOR OF FINANCE): Blood pressure has been severely elevated since [...] therapy. Assessment & Plan (09/19/2020 4:09 PM DEPUTY DIRECTOR OF FINANCE): Blood pressure is slightly elevated today no [...] appointment. Assessment & Plan (11/05/2018 6:25 PM DEPUTY DIRECTOR OF FINANCE): Hypertension elevated today will continue reserves check [...] profile. Assessment & Plan (09/19/2020 4:11 PM DEPUTY DIRECTOR OF FINANCE): Patient's advised to stop her medicine with [...] elevation of the calcium level in a property adjuster would like for to get repeated in next few months Assessment & Plan (07/12/2017 3:37 PM CDT): History of breast cancer mammogram surveillance will continue. History of gout Current Treatment and Therapy Plans No current plan information found. Past Treatment and Therapy Plans No past plan information found. Lifetime Dose Tracking * Chemical Lifetime Dose Automatic Entry Manual Entr y Fluoro Time 0.3 minutes 0.3 minutes 0 minutes Air kerma at the reference point (Ka,r) 5 mGy 5 mGy 0 mGy Resolved Problems Problem Noted Date Diagnosed Date [...] 03/15/2023 Assessment & Plan (11/28/2022 6:06 PM DEPUTY DIRECTOR OF FINANCE): Advised patient use lactate when using milk products. For information from up-to-date today regarding high-fiber diet. Not having any blood in his stool or mucus in his stools. She is not having overt diarrhea. Kidney stones 12/12/2021 03/15/2024 Overview (12/12/2021): Added automatically from request for surgery [id number] Gross hematuria 12/12/2021 03/30/2024 Overview (12/12/2021): Added automatically from request for surgery [id number] Assessment & Plan (03/22/2024 10:30 AM CDT): Urine clear. Resume Xarleto. Assessment & Plan (03/18/2024 12:49 PM CDT): To joe. Will hold Xarleto. Check labs in am. Monitor. Abnormal urologic system diagnostic imaging 12/11/2021 03/15/2024 Severe malnutrition 10/03/2021 02/29/20 22 Pericardial effusion 10/02/2021 022 Assessment & Plan (10/02/2021 9:49 AM DEPUTY DIRECTOR OF FINANCE): Seen on CT on presentation. Does not seem to be hemodynamically significant. Echocardiogram ordered and Cardiology consulted. Right renal mass 10/02/2021 04/01/2024 Assessment & Plan (10/08/2021 2:12 PM DEPUTY DIRECTOR OF FINANCE): Referral to urologist sent by this office. Assessment & Plan (10/02/2021 9:47 AM DEPUTY DIRECTOR OF FINANCE): Seen on CT on presentation. CT urogram ordered per radiology recs. Urology consulted. Nausea and vomiting in adult 10/01/2021 03/15/2023 Assessment & Plan (10/08/2021 1:45 PM DEPUTY DIRECTOR OF FINANCE): Nausea vomiting resolved once UTI was treated Assessment & Plan (10/01/2021 10:33 AM DEPUTY DIRECTOR OF FINANCE): Nausea and vomiting started around September 09 is gotten progressively worse. Patient cannot hold down solids. Denies any blood in his stools or vomiting blood. No vomiting or bowel. No abdominal pain. Patient's unstable in appearance her typical self referred to emergency room for hospital admission EGD lab workup dehydration etc.. Dizziness 10/01/2021 03/15/2023 Assessment & Plan (10/01/2021 10:34 AM DEPUTY DIRECTOR OF FINANCE): Dizziness for last 2-3 days patient has [...] 02/28/2022 Assessment & Plan (10/08/2021 1:44 PM DEPUTY DIRECTOR OF FINANCE): Patient's referral with Urology cystoscopy is scheduled heart to be done. 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 Discovered on recent hospitalization Assessment & Plan (10/02/2021 9:52 AM DEPUTY DIRECTOR OF FINANCE): UA on presentation showed pyuria with 4+ leuk esterase and 3+ bacteria present. Patient's lethargy and decreased appetite are likely symptoms infection, though it seems unlikely to explain the nausea, vomiting, and diarrhea that were present for approximately the past 2 weeks in resolved 3 days ago. A COVID-19 test at [facility] pharmacy in [place] was reportedly negative, but the symptoms are [...] 04/24/2021 Assessment & Plan (08/21/2020 3:48 PM DEPUTY DIRECTOR OF FINANCE): Patient having pain 3 4 days a [...] syndrome on left 01/07/2018 12/02/2019 Overview (01/07/2018): Qavv-vm-rpydmthi discomfort no surgical intervention needed if problems [...] date. Assessment & Plan (11/05/2018 6:25 PM DEPUTY DIRECTOR OF FINANCE): Data hemoglobin HgbA1c today patient is having [...] to diabetes. Elevated troponin 01/08/2024 Hypokalemia 10/08/2021 "
--- OUTSIDE RECORDS SUMMARY | 2025-02-01 13:54 | XMS_ITS | Clinical Summary ---
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 Gender Identity Not on file Sexual Orientation Not on file Plan of Treatment Health Maintenance Due Date Last Done Comments Hepatitis C Virus (HCV) Screening 1940 Respiratory Syncytial Virus (RSV) Immunization (Adult) (1 - 1-dose 75+ series) 2014 Influenza Immunization (#1) 2024 11/0 05/2021, 05/19/2020, 07/14/2018, Additional history exists SARS-COV-2 Immunization (2023- season) 2024 07/31/2021, 12/01/2020, 11/10/2020 Pneumococcal Immunization (50+ years) Completed 07/14/2018, 07/11/2016 Pneumococcal Immunization Combined Discontinued 07/14/2018, 07/11/2016 DTaP/Tdap/Td Immunization Discontinued 01/28/2019 TdaP Immunization Completed 01/28/2019 Zoster Immunization Completed 09/30/2019, 09/23/2019, 06/29/2019 Hepatitis B Immunization Aged Out No longer eligible based on patient's age to complete this topic Meningococcal Immunization (ACWY) Aged Out No longer eligible based on patient's age to complete this topic Rotavirus Immunization Aged Out No lo nger eligible based on patient's age to complete this topic Insurance MEDICARE C [employer] Care Teams Community Specialist Relationship Specialty Start Date End Date Osmel Moe MD [address] [place] [address] PCP - General Internal Medicine 10/10/21
--- OUTSIDE RECORDS SUMMARY | 2025-02-01 13:54 | XMS_ITS | Encounter Summary ---
Author Organization [facility] Address [address] [place] [address] Phone Care Team Providers Care Taffy Puller Name Role Phone Osmel Moe MD Primary Care Provider + [phone] Gomez Raymond MD Unavailable [phone] James Suarez MD Unavailable [phone] Ramo Squires MD Unavailable [phone] James Juarez MD Unavailable Sera Vieira RN Unavailable [phone] Encounter Details Date Type Department Care Team (Late st Contact Info) Description 03/06/2023 Orders Only [facility] [address] [place] [address] Scanning, Provider Social History Tobacco [...] week 10/08/2021 How often do you attend [facility] or holiness services? More than 4 times per year 10/08/2021 Do you belong to any clubs o r organizations such as protestant groups, unions, fraternal or athletic groups, or [...] place to sleep or slept in a jail (including now)? No 10/16/2021 Personal Safety Answer Date Recorded Have you ever been in or are you currently in a harmful physical or emotional relationship or is someone making you feel afraid or unsafe? 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 Gender Identity Not on file Sexual Orientation Not on file Occupation Industry Job Start Date Job End Date Retired Not on file Not on file Not on file documented as of this encounter Plan of Treatment Not on file documented as of this encounter Procedures Procedure Name Priority Date/Time Associated Diagnosis Comments SCAN - LABS 03/06/2023 documented in this encounter Results * SCAN - LABS (03/06/2023) Provider Scanning Final Result documented in this encounter Visit Diagnoses Not on filedocumented in this encounter Additional Health Concerns Infection Onset Date Last Indicated Resolved Time COVID: Suspected 02/28/2024 02/28/2024 02/28/2024 5:05 PM CDT documented as of this encounter Care Teams Taffy Puller Relationship Specialty Start Date End Date Osmel Moe MD PCP - General 12/20/16 Gomez Raymond MD Consulting Physician Urology 10/04/21 James Suarez MD Consulting Physician Cardiovascular Disease 10/05/21 Ramo Squires MD Consulting Physician Urology 01/23/22 James Juarez MD Referring Physician Dermatology 03/03/23 Sera Vieira RN [address] [place] [address] [address] [place] [address] Airport Operations Coordinator 04/08/24 05/06/24 documented as of this encounter
--- OUTSIDE RECORDS SUMMARY | 2025-02-01 13:54 | XMS_ITS | Encounter Summary ---
Author Organization [facility] Healthcare Address [address] [place] [address] Care Team Providers Care Ip Network Architect Name Role Phone Osmel Moe MD Primary Care Provider + [phone] Gomez Raymond MD Unavailable [phone] Jamse Suarez MD Unavailable [phone] Ramo Squires MD Unavailable [phone] James Juarez MD Unavailable Sera Vieira RN Unavailable [phone] Encounter Details Date Type Department Care Team (Late st Contact Info) Description 02/29/2024 Orders Only [facility] Medical Group [facility] [address] [place] [id number] Scanning, Provider Social History Tobacco Use Types [...] How often do you attend [facility] or religion services? More than 4 times per year 10/08/2021 Do you belong to any clubs o r organizations such as rastafarian groups, unions, fraternal or athletic groups, or [...] place to sleep or slept in a [facility] (including now)? No 10/16/2021 Personal Safety Answer Date Recorded Have you ever been in or are you currently in a harmful physical or emotional relationship or is someone making you feel afraid or unsafe? 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 Gender Identity Not on file Sexual Orientation Not on file Occupation Industry Job Start Date Job End Date Retired Not on file Not on file Not on file documented as of this encounter Plan of Treatment Not on file documented as of this encounter Procedures Procedure Name Priority Date/Time Associated Diagnosis Comments SCAN - RADIOLOGY/IMAGING 02/29/2024 documented in this encounter Results * SCAN - RADIOLOGY/IMAGING (02/29/2024) Anatomical Region Laterality Modality Other us Provider Scanning Final Result documented in this encounter Visit Diagnoses Not on filedocumented in this encounter Care Teams Ip Network Architect Relationship Specialty Start Date End Date Osmel Moe MD PCP - General 12/20/16 Gomez Raymond MD Consulting Physician Urology 10/04/21 James Suarez MD Consulting Physician Cardiovascular Disease 10/05/21 Ramo Squires MD Consulting Physician Urology 01/23/22 James Juarez MD Referring Physician Dermatology 03/03/23 Sera Vieira RN [address] [place] [address] [address] [place] [address] Wood Piler 04/08/24 05/06/24 documented as of this encounter
== END 2025-02-01 13:35 | disposition home or self-care (01) ==
PROVIDERS: PCP Internal Medicine; Visit Provider Urology
DX: K68.12 Psoas muscle abscess (principal)
CPT/HCPCS: 74176

== ENCOUNTER 2025-04-08 21:15 | Emergency (ER) | payer MEDICARE, SELFPAY ==
--- NOTE | ~2025-04-08 | XR_ITS ---
EXAMINATION: XR chest 1V portable Exam Date/Time: 04/08/2025 23:42 CDT HISTORY: weak Comparison: 03/02/2024, CTA abdomen and pelvis 04/08/2025; CT cap 02/09/2024. RESULT: Lines, tubes, and devices: None. Lungs and pleura: No focal consolidation, pleural effusion, or pneumothorax. Biapical scarring. Mild diffuse reticular opacities. Cardiomediastinal silhouette: Stable. Other: No acute osseous or upper abdominal finding. IMPRESSION: Mild interstitial edema, possibly overlying mild chronic interstitial change. Reviewed, dictated and finalized at location K.
--- NOTE | ~2025-04-08 | CT_ITS ---
EXAMINATION: CTA abdomen pelvis DATE: 04/08/2025 23:41 INDICATION: active bleeding?, hx psoas abscess/bleed TECHNIQUE: Computed tomography (CT) of the abdomen and pelvis was performed without and with 100 mL O mnipaque-350 intravenous contrast in arterial and portal venous phases. Automated exposure control an d iterative reconstruction technique were employed. The dose-length product was 902.00 mGy-cm. COMPARISON: 02/01/2025. FINDINGS: Lower thorax: Cardiomegaly. Small pericardial effusion. Trace right pleural fluid. Stable right lower lobe pulmonary nodule. Liver: Normal. A small portion of the liver dome is excluded from the [id number]-wd-[id number] in the postcontra st images. Biliary/Gallbladder: Gallbladder is normal. No bile duct dilation. Pancreas: No mass or duct dilation. Spleen: Normal. Adrenals:No mass. Kidneys: No suspicious mass, obstructing stone, or hydronephrosis. Bilateral renal cortical scarring. Right posterior perirenal scar, likely old nephrostomy tract. Left posterior perirenal scar at the s ite of prior perirenal abscess, no recurrent abscess detected. GI tract: No small or large bowel dilation. Appendix is not identified. Mesentery/Peritoneum: No ascites, mass, or free air. Retroperitoneum: No mass. Atherosclerotic calcifications of intra-abdominal arterial vessels. No diss ection, aneurysm, or extravasation. No severe aortic branch vessel stenosis. Pelvis: Mild urinary bladder wall thickening. Endometrial cavity is thickened 10 mm. Normal bilateral ovaries.. Soft Tissues: Rim-enhancing fluid collection in the right psoas extending from the upper portion of t he right SI joint to the level of L3-4 for an overall craniocaudad length of 9.9 cm, with minimal ext ension into the right quadratus lumborum muscle, measuring up to 2.1 x 1.2 cm in AP and transverse di ameter at that level. Bones: No acute osseous finding. Stable mild anterior wedge deformity at L2. IMPRESSION: Small pericardial effusion. Small right pleural effusion. No active GI bleeding or other acute hemorrhage detected. No aortic dissection or aneurysm. 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 Thickened endometrial complex, which may be seen with endometrial hyperplasia, polyp, or carcinoma. C onsider nonemergent but timely pelvic ultrasound for confirmation and/or gynecology referral for pote ntial sampling. Urinary bladder wall thickening as can be seen with cystitis. Reviewed, dictated and finalized at location K. IMPRESSION: Small pericardial effusion. Small right pleural effusion. No active GI bleeding or other acute hemorrhage detected. No aortic dissection or aneurysm. 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 Thickened endometrial complex, which may be seen with endometrial hyperplasia, polyp, or carcinoma. Consider nonemergent but timely pelvic ultrasound for conf irmation and/or gynecology referral for potential sampling. Urinary bladder wall thickening as can be seen with cystitis.
[2025-04-08 21:18] VITALS: BP 112/47; PULSE 57; RESP 16; TEMP 36.8; O2SAT 100
--- OUTSIDE RECORDS SUMMARY | 2025-04-08 21:18 | XMS_ITS | Encounter Summary ---
Author Organization [facility] Healthcare Address [address] [place] [address] Care Team Providers Care Flux Tube Attendant Name Role Phone Osmel Moe MD Primary Care Provider + [phone] Gomez Raymond MD Unavailable [phone] James Suarez MD Unavailable [phone] Ramo Squires MD Unavailable [phone] James Juarez MD Unavailable [phone] Reason for Visit * Reason Onset Date Comments UTI 04/07/2025 Encounter Details Date Type Department Care Team (Late st Contact Info) Description 04/07/2025 Telephone [facility] Medical Group [facility] [address] [place] [id number] Osmel Moe MD [address] [address] UTI Social History Tobacco Use Types Packs/Day Years Used Date Smoking Tobacco: Never Passive Smoke Exposure: Past Smokeless Tobacco: Never Alcohol Use Standard Drinks/Week Comments Yes 0 (1 standard drink = 0.6 oz pur e alcohol) [facility] Utilities Answer Date Recorded In [...] 04/08/2024 How often do you attend chur or congregation services? 1 to 4 times per year 04/08/2024 Do you belong to any clubs o r organizations such as caodaism groups, unions, fraternal or athletic groups, or [...] place to sleep or slept in a mcc (including now)? No 10/16/2021 Housing Stability Vital Sign Answer Kole e Recorded In the last 12 months, was t here a time when you were not able to pay the mortgage or rent on time? No 04/08/2024 In the past 12 months, how m any times have you moved where you were living? 1 04/08/2024 At any time in the past 12 m [facility], were you homeless or living in a mcc (including now)? No 04/08/2024 Personal Safety Answer Date Recorded Have you ever been in or are you currently in a harmful physical or emotional relationship or is someone making you feel afraid or unsafe? 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 Shadia states the dizziness and confusion did get a little worse 04/05/25 - 04/06/25. Shadia states 04/06/25 pt started taking Cipro 250 mg BID x 5 days (given to her by urology, Dr Manuel Perez to have on hand for frequent UTIs) & symptoms have improved slightly but she does still have the symptoms. Did advise PROFESSIONAL ATHLETES COACH visit tomorrow for evaluation/treatment before the weekend. Shadia did agree and scheduled pt with [facility] for tomorrow at 1 PM. Advised [facility] is cashless. Advised to take pt to ER if symptoms worsen. Shadia did voice understanding to all and had no further questions/concerns at this time. * Telephone Encounter - Phani Miscindy - 04/07/2025 11:37 AM CDT Pt's daughter called in because Friday pt felt weak and yesterday she was weak and confused. Yesterday she started taking ciprofloxacin that she received from urologist in the past for when this happens. Pt seems a bit better today but daughter wanted to make sure there isn't anything else she should do. CBN: [phone] Pharm: Melissa in [place] documented in this encounter Plan of Treatment Not on file documented as of this encounter Visit Diagnoses Not on filedocumented in this encounter Care Teams Flux Tube Attendant Relationship Specialty Start Date End Date Osmel Moe MD PCP - General 12/20/16 Gomez Raymond MD Consulting Physician Urology 10/04/21 James Suarez MD Consulting Physician Cardiovascular Disease 10/05/21 Ramo Squires MD Consulting Physician Urology 01/23/22 James Juarez MD Referring Physician Dermatology 03/03/23 documented as of this encounter
--- OUTSIDE RECORDS SUMMARY | 2025-04-08 21:18 | XMS_ITS | Clinical Summary ---
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 Gender Identity Not on file Sexual Orientation Not on file Plan of Treatment Health Maintenance Due Date Last Done Comments Hepatitis C Virus (HCV) Screening 1940 Respiratory Syncytial Virus (RSV) Immunization (Adult) (1 - 1-dose 75+ series) 2014 SARS-COV-2 Immunization ( season) 2024 07/31/2021, 12/01/2020, 11/10/2020 Influenza Immunization (#1) 2025 110 05/2021, 05/19/2020, 07/14/2018, Additional history exists Pneumococcal Immunization (50+ years) Completed 07/14/2018, 07/11/2016 Pneumococcal Immunization Combined Discontinued 07/14/2018, 07/11/2016 DTaP/Tdap/Td Immunization Discontinued 01/28/2019 TdaP Immunization Completed 01/28/2019 Zoster Immunization Completed 09/30/2019, 09/23/2019, 06/29/2019 Hepatitis B Immunization Aged Out No longer eligible based on patient's age to complete this topic Human Papillomavirus (HPV) Immunization Aged Out No longer eligible based on patient's age to complete this topic Meningococcal Immunization (ACWY) Aged Out No longer eligible based on patient's age to complete this topic Rotavirus Immunization Aged Out No lo nger eligible based on patient's age to complete this topic Insurance MEDICARE C [employer] Care Teams Vat Overhauler Relationship Specialty Start Date End Date Osmel Moe MD [address] [place] [address] PCP - General Internal Medicine 10/10/21
--- OUTSIDE RECORDS SUMMARY | 2025-04-08 21:18 | XMS_ITS | Encounter Summary ---
Author Organization [facility] Address [address] [place] [address] Phone Care Team Providers Care Patient Safety Officer Name Role Phone Osmel Moe MD Primary Care Provider + [phone] Gomez Raymond MD Unavailable [phone] Jaems Suarez MD Unavailable [phone] Ramo Squires MD Unavailable [phone] James Juarez MD Unavailable [phone] Sera Vieira RN Unavailable [phone] Encounter Details Date Type Department Care Team (Late st Contact Info) Description 12/07/2021 Orders Only [facility] [address] [place] [address] Scanning, Provider Social History Tobacco [...] week 10/08/2021 How often do you attend [facility] or taoism services? More than 4 times per year 10/08/2021 Do you belong to any clubs o r organizations such as yarsanism groups, unions, fraternal or athletic groups, or [...] a long term (including now)? 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
--- OUTSIDE RECORDS SUMMARY | 2025-04-08 21:18 | XMS_ITS | Encounter Summary ---
Author Organization [facility] Address [address] [employer] [place] [address] Phone Care Team Providers Care Tape Stringer Name Role Phone Osmel Moe MD Primary Care Provider + [phone] Gomez Raymond MD Unavailable [phone] James Suarez MD Unavailable [phone] Ramo Squires MD Unavailable [phone] James Juarez MD Unavailable [phone] Sera Vieira RN Unavailable +[phone] Encounter Details Date Type Department Care Team (Late st Contact Info) Description 03/06/2023 Orders Only [facility] [address] [employer] [place] [address] Scanning, Provider Social History Tobacco [...] week 10/08/2021 How often do you attend [facility] or mormon services? More than 4 times per year [...] place to sleep or slept in a fci (including now)? No 10/16/2021 Personal Safety Answer Date Recorded Have you ever been in or are you currently in a harmful physical or emotional relationship or is someone making you feel afraid or unsafe? 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 Gender Identity Not on file Sexual Orientation [...] encounter Results * SCAN - LABS (03/06/2023) us Provider Scanning Final Result documented in this encounter Visit Diagnoses Not on filedocumented in this encounter Additional Health Concerns Infection Onset Date Last Indicated Resolved Time COVID: Suspected 02/28/2024 02/28/2024 02/28/2024 5:05 PM CDT documented as of this encounter Care Teams Tape Stringer Relationship Specialty Start Date End Date Osmel Moe MD PCP - General 12/20/16 Gomez Raymond MD Consulting Physician Urology 10/04/21 James Suaerz MD Consulting Physician Cardiovascular Disease 10/05/21 Ramo Squires MD Consulting Physician Urology 01/23/22 James Juarez MD Referring Physician Dermatology 03/03/23 Sera Vieira RN [address] [place] [address] [place] [address] Special Loan Officer 04/08/24 05/06/24 documented as of this encounter
--- OUTSIDE RECORDS SUMMARY | 2025-04-08 21:18 | XMS_ITS | Referral Summary ---
Author Organization [facility] Address [address] [place] [address] Care Team Providers Care Interlocker Name Role Phone Osmel Moe MD Primary Care Provider [phone] Gomez Raymond MD Unavailable [phone] James Suarez MD Unavailable [phone] Ramo Squires MD Unavailable James Juarez MD Unavailable [phone] Encounters Date Type Department Care Team Description 04/08/2025 Telephone [facility] [address] [place] [address] Yoni Redmond MD 04/08/2025 2:20 PM CDT Lab [facility] [address] [place] [address] Fatigue, unspecified type; Vertigo; Diabetes mellitus without complication (HCC) 04/08/2025 1:00 PM CDT Office Visit [facility] [address] [facility] [address] [place] [address] Melony Oliveros NP Other fatigue (Primary Dx); Vertigo; Essential hypertension; Paroxysmal atrial fibrillation (HCC); Diabetes mellitus without complication (HCC); BCC (basal cell carcinoma), lip 04/07/2025 Telephone [facility] [address] [place] [address] Osmel Moe MD UTI 03/08/2025 Telephone [facility] [address] [facility] [address] [place] [id number] Tanya Alanis RN 02/07/2025 1:00 PM CDT Office Visit [facility] [place] [facility] [address] [facility] [address] [place] [address] Osmel Moe MD Diabetes mellitus without complication (HCC) (Primary Dx); Chronic atrial fibrillation (HCC); Osteoarthritis involving multiple joints on both sides of body 02/01/2025 Orders Only [facility] [place] [place] Health Information Management [address] [place] [address] Osmel Moe MD from Last 3 Months Allergies Active Allergy Reactions Criticality Noted Date Comments Atorvastatin Muscle pain Medium Cephalosporins Rash Medium 06/29/2019 Clindamycin Diarrhea,Rash Medium Codeine Other (See comments) Low Severe pain Iodinated Contrast Media Rash Medium 03/30/2024 Meperidine Unknown 06/29/2019 Morphine Unknown Low 01/19/2019 Penicillins Other (See comments) High passed out; PCN allergy form filled out Propoxyphene Unknown 04/09/2024 Rosuvastatin Unknown Sulfa (Sulfonamide Antibiotics) Mental status changes Low Tramadol Unknown Medications ascorbic acid, vitamin C, (VITAMIN C) 500 mg capsule, extended release CR capsule 500 mg. 0 04/22/20 12 Active alendronate (Fosamax) 70 mg tablet Take 1 tablet (70 mg total) by mouth every 7 days Take in the morning with a full glass of water, on an empty stomach, and do not take anything else by mouth or lie down for the next 30 min. 04/01/20 24 Active Additional Information Patient not taking.Reported on 04/08/2025 acetaminophen (TYLENOL) 325 mg tablet Take 2 tablets (650 mg total) by mouth every 6 (six) hours as needed for pain Active vitamin B complex capsule Take 1 capsule by mouth daily Active cholecalciferol (VITAMIN D-3) 2000 unit tablet Take 1 tablet (2,000 Units total) by mouth daily Active metoprolol XL (TOPROL-XL) 25 mg extended release tabletIndications: Essential hypertension Take 1 tablet (25 mg total) by mouth every morning 90 tablet 1 10/18/19 25 Active valsartan-hydroCHL OROthiazide (DIOVAN-HCT) 80-12.5 mg per tabletIndications: hypertension TAKE 1 TABLET BY MOUTH DAILY 90 tablet 3 11/18/19 25 026 Active allopurinoL (ZYLOPRIM) 300 mg tabletIndications: History of gout TAKE 1 TABLET(300 MG) BY MOUTH EVERY MORNING 90 tablet 1 01/11/20 25 Active amLODIPine (NORVASC) 5 mg tabletIndications: Essential hypertension Take 1 tablet (5 mg total) by mouth daily 90 tablet 1 02/12/20 25 Active Xarelto 15 mg tablet TAKE 1 TABLET(15 MG) BY MOUTH DAILY WITH BREAKFAST 90 tablet 3 03/08/20 25 Active cyanocobalamin (Vitamin B-12) 1,000 mcg sublingual tablet Take 1 tablet (1,000 mcg total) by mouth daily Active ondansetron ODT (ZOFRAN-ODT) 4 mg disintegrating tablet Take 1 tablet (4 mg total) by mouth every 8 (eight) hours as needed for nausea or vomiting 20 tablet 04/08/20 25 Active ciprofloxacin (CIPRO) 250 mg tablet Take 1 tablet (250 mg total) by mouth 2 (two) times a day for 5 days TAKE 1 TABLET BY MOUTH TWICE DAILY FOR 5 DAYS AT A TIME FOR RECURRING KIDNEY INFECTIONS 10 tablet 04/08/20 25 025 Active potassium chloride ER (KLOR-CON) 20 mEq CR tablet Take 1 and 1/2 tablets by mouth daily (30 MEQ) daily. 135 tablet 1 04/08/20 25 Active triamcinolone (KENALOG) 0.5 % cream Apply topically 2 (two) times a day for 14 days 30 g 04/09/20 24 025 Discontin ued(Thera py completed ) mupirocin (BACTROBAN) 2 % creamIndications:p eritoneal dialysis catheter care Apply topically 3 (three) times a day 15 g 1 09/07/20 24 025 Discontin ued(Thera py completed ) potassium chloride ER (KLOR-CON) 20 mEq CR tablet Take 1 and 1/2 tablets by mouth daily (30 MEQ) daily. 135 tablet 1 10/06/19 25 025 Discontin ued(Reord er) ciprofloxacin (CIPRO) 250 mg tablet TAKE 1 TABLET BY MOUTH TWICE DAILY FOR 5 DAYS AT A TIME FOR RECURRING KIDNEY INFECTIONS - ENOUGH FOR 3 TREATMENTS 02/01/20 25 025 Discontin ued(Reord er) ciprofloxacin (CIPRO) 250 mg tablet Take 1 tablet (250 mg total) by mouth 2 (two) times a day for 5 days TAKE 1 TABLET BY MOUTH TWICE DAILY FOR 5 DAYS AT A TIME FOR RECURRING KIDNEY INFECTIONS - ENOUGH FOR 3 TREATMENTS 10 tablet 04/08/20 25 025 Discontin ued(Reord er) Active Problems Problem Noted Date Diagnosed Date Other fatigue 04/08/2025 BCC (basal cell carcinoma), lip 07/31/2022 Overview (07/31/2022): Added automatically from request for surgery [id number] Melanocytic nevus of right upper extremity 07/31 Overview (07/31/2022): Added automatically from request for surgery [id number] Atrial fibrillation 11/08/2021 Assessment & Plan (02/07/2025 7:04 PM CDT): Chronic atrial fibrillation patient's Eliquis she continues see popcorn machine operator she is doing well. Chest pain no palpitations no evidence of he needs CVA or TIA symptoms Assessment & Plan (06/23/2024 2:24 PM CDT): Chronic problems stable patient remains on 15 mg daily Assessment & Plan (03/10/2024 8:20 AM CDT): This is chronic stable. Please continue Xarelto. Monitor vital signs for RVR. Assessment & Plan (11/28/2022 6:04 PM INSTRUCTOR OF SPANISH): Patient's atrial fibrillation she applied for life insurance she was declined because of atrial fibrillation and protein in the urine. She want to make sure everything was being done regarding her problems. I explained to her atrial fibrillation importance of controlling rate as well as anticoagulation therapy. Patient is here with her daughter understood information given. Assessment & Plan (11/08/2021 1:35 PM INSTRUCTOR OF SPANISH): Patient is seen by popcorn machine operator last 30 days she remains on Eliquis at this time fibrillation new onset less than 90 days ago. Patient is tolerating the Eliquis today of her pulses excellent. See her back in the next 4 months. Will continue Eliquis at this time Vertigo 10/01/2021 Assessment & Plan (10/01/2021 10:34 AM INSTRUCTOR OF SPANISH): Dizziness for last 2-3 days patient has [...] week this is very different for her. Chronic pain of both shoulders 09/20/2020 Assessment & Plan (09/20/2020 3:49 PM INSTRUCTOR OF SPANISH): Patient developed pain right shoulder after breast [...] sides of body 09/19/2020 Assessment & Plan (02/07/2025 7:07 PM CDT): Patient has improved with respect to joint pain she has some osteoarthritis. She complains of pain when she gets down her knees pick something off the floor in his etc. other than this daily activity she does well without any significant knee pain. Advised patient against getting on the floor given her age and difficulty getting up on her own Assessment & Plan (08/07/2023 2:11 PM INSTRUCTOR OF SPANISH): No complaints of joint pains whatsoever at [...] day helps.. Recommend patient go to a [facility] physical therapy see if stretching exercise may help her leg and possibly a shoulders. Assessment & Plan (09/19/2020 4:08 PM INSTRUCTOR OF SPANISH): Patient having joint pains multiple sites and [...] mellitus without complication 9 Assessment & Plan (02/07/2025 7:06 PM CDT): Diabetes very well controlled HgbA1c 5.7-6.9 over the past year will update HgbA1c today patient is on no medications. Diabetic foot exam current diabetic eye exam current without diabetic retinopathy.. No polyuria polyphagia polydipsia. Assessment & Plan (08/10/2024 3:07 PM INSTRUCTOR OF SPANISH): Patient advised me she had an eye exam 1 week ago no diabetic eye disease found medical records report pending. Diabetes very well controlled hemoglobin HgbA1c less than 7 for the past 4 years. Current HgbA1c is results pending Assessment & Plan (08/07/2023 2:12 PM INSTRUCTOR OF SPANISH): Diabetes has been stable no HgbA1c today. [...] (H) Assessment & Plan (10/02/2021 9:48 AM INSTRUCTOR OF SPANISH): Diet controlled, monitor glucose while inpatient and [...] 05/27 Assessment & Plan (08/10/2024 3:08 PM INSTRUCTOR OF SPANISH): History and physical completed patient's health risk assessment health maintenance reviewed and addressed. Her last annual exam with me this patient has been admitted to hospital for urinary tract obstruction kidney stone perinephric abscess. Of which she has recovered from. Patient is doing well she is 84 years old she has absolutely no dementia. Assessment & Plan (08/07/2023 2:07 PM INSTRUCTOR OF SPANISH): History and physical completed patient's health risk [...] [facility] Order for bone density is been placed. [...] hours. Assessment & Plan (11/05/2018 6:23 PM INSTRUCTOR OF SPANISH): Patient describes a neuropathy of sensation of [...] 02/05/2014 Overview (12/26/2016): Hypertension Assessment & Plan (02/07/2025 7:07 PM CDT): Pressures concerning with a diastolic of 48 will adjust medication by reducing amlodipine 5 mg daily she will remain on valsartan/HCTZ 80/12.5 mg daily metoprolol 25 mg daily. Patient has no overt evidence of CHF and she is functioning very well. Assessment & Plan (08/10/2024 2:59 PM INSTRUCTOR OF SPANISH): Blood pressure 134/36 patient feels well.. Gap [...] 300 mg per day down to 100. Orondo some improvement but still feels fatigued worn [...] osteoarthritis Assessment & Plan (08/07/2023 2:10 PM INSTRUCTOR OF SPANISH): Blood pressure is excellent no change in therapy Assessment & Plan (03/15/2023 2:46 PM CDT): Hypertension remains well controlled patient tolerating medications no change in therapy Assessment & Plan (11/28/2022 6:03 PM INSTRUCTOR OF SPANISH): Blood pressure well controlled. Patient's concern regarding [...] therapy Assessment & Plan (11/08/2021 1:33 PM INSTRUCTOR OF SPANISH): Blood pressures from home reviewed there are acceptable. Patient's blood pressure today is wide range between systolic and diastolic without any precise reason. Patient's echocardiogram was reviewed there was no significant valvular disease in ejection pressure was 70-75% no change in therapy. Assessment & Plan (10/08/2021 2:13 PM INSTRUCTOR OF SPANISH): Blood pressure well reviewed patient now on new medication hydralazine and amlodipine again he has a follow-up appointment cardiology in the next 24 hours. No changes made in medications today Assessment & Plan (10/02/2021 9:48 AM INSTRUCTOR OF SPANISH): Blood pressure has been severely elevated since [...] therapy. Assessment & Plan (09/19/2020 4:09 PM INSTRUCTOR OF SPANISH): Blood pressure is slightly elevated today no [...] appointment. Assessment & Plan (11/05/2018 6:25 PM INSTRUCTOR OF SPANISH): Hypertension elevated today will continue reserves check [...] profile. Assessment & Plan (09/19/2020 4:11 PM INSTRUCTOR OF SPANISH): Patient's advised to stop her medicine with [...] elevation of the calcium level in a recovery unit operator would like for to get repeated in [...] daughter is encouraged to keep this appointment. Perinephric abscess 03/10/2024 04/08/20 Assessment & Plan (08/10/2024 2:56 PM INSTRUCTOR OF SPANISH): Patient advised me abscesses resolved through Wound [...] catheter. Continue this pending her urology appointment. Diabetic neuropathy, type II diabetes mellitus [...] 03/15/2023 Assessment & Plan (11/28/2022 6:06 PM INSTRUCTOR OF SPANISH): Advised patient use lactate when using milk products. For information from up-to-date today regarding high-fiber diet. Not having any blood in his stool or mucus in his stools. She is not having overt diarrhea. Kidney stones 12/12/2021 03/15/2024 Overview (12/12/2021): Added automatically from request for surgery [id number] Gross hematuria 12/12/2021 03/30/2024 Overview (12/12/2021): Added automatically from request for surgery [id number] Assessment & Plan (03/22/2024 10:30 AM CDT): Urine clear. Resume Xarleto. Assessment & Plan (03/18/2024 12:49 PM CDT): To joe. Will hold Xarleto. Check labs in am. Monitor. Abnormal urologic system diagnostic imaging 12/11/2021 03/15/2024 Hospital discharge follow-up 10/08/2021 04/08/2025 Assessment & Plan (02/28/2022 6:15 PM CDT): Patient is in the hospital for a procedure 01/23/2022 she had a bladder biopsy which was negative cancer she had a cystoscopy urtehscopy done. She has followed up with Urology no consequences of this procedure Assessment & Plan (10/08/2021 1:43 PM INSTRUCTOR OF SPANISH): Hospital follow-up admission date 10/02/2021 discharge date 10/05/2021.. Diagnosis acute cystitis with hematuria. 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 Patient has been given referral to [facility] urologist a few weeks. Patient's blood [...] good understands regarding these for both referrals. Severe malnutrition 10/03/2021 02/29/20 22 Pericardial effusion 10/02/2021 022 Assessment & Plan (10/02/2021 9:49 AM INSTRUCTOR OF SPANISH): Seen on CT on presentation. Does not seem to be hemodynamically significant. Echocardiogram ordered and Cardiology consulted. Right renal mass 10/02/2021 04/01/2024 Assessment & Plan (10/08/2021 2:12 PM INSTRUCTOR OF SPANISH): Referral to urologist sent by this office. Assessment & Plan (10/02/2021 9:47 AM INSTRUCTOR OF SPANISH): Seen on CT on presentation. CT urogram ordered per radiology recs. Urology consulted. Nausea and vomiting in adult 10/01/2021 03/15/2023 Assessment & Plan (10/08/2021 1:45 PM INSTRUCTOR OF SPANISH): Nausea vomiting resolved once UTI was treated Assessment & Plan (10/01/2021 10:33 AM INSTRUCTOR OF SPANISH): Nausea and vomiting started around September 09 is gotten progressively worse. Patient cannot hold down solids. Denies any blood in his stools or vomiting blood. No vomiting or bowel. No abdominal pain. Patient's unstable in appearance her typical self referred to emergency room for hospital admission EGD lab workup dehydration etc.. Acute cystitis with hematuria 10/01/2021 02/28/2022 Assessment & Plan (10/08/2021 1:44 PM INSTRUCTOR OF SPANISH): Patient's referral with Urology cystoscopy is scheduled heart to be done. 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 Discovered on recent hospitalization Assessment & Plan (10/02/2021 9:52 AM INSTRUCTOR OF SPANISH): UA on presentation showed pyuria with 4+ leuk esterase and 3+ bacteria present. Patient's lethargy and decreased appetite are likely symptoms infection, though it seems unlikely to explain the nausea, vomiting, and diarrhea that were present for approximately the past 2 weeks in resolved 3 days ago. A COVID-19 test at [facility] in [place] was reportedly negative, but the symptoms are suspicious so another test was ordered this morning. CXR shows only minimal right basilar airspace opacities most consistent with atelectasis, imaging personally reviewed. Very low suspicion of pneumonia with no significant shortness of breath, cough, or fever. Continue Levaquin day 2 while awaiting urine culture results. Adverse drug reaction 07/05/[id number] Assessment & Plan (07/05/2021 5:46 PM CDT): Mitigare is a generic/substitute for brand name colchicine substitute. This particular brand causes patient have significant diarrhea was not very effective in relieving symptoms. Her insurance company [employer] is is has sent her a forms for to get a formal Aricept bardales. Gout of left foot 07/05/2021 05/31/2022 Assessment [...] 04/24/2021 Assessment & Plan (08/21/2020 3:48 PM INSTRUCTOR OF SPANISH): Patient having pain 3 4 days a [...] syndrome on left 01/07/2018 12/02/2019 Overview (01/07/2018): Kuij-ef-afpiergm discomfort no surgical intervention needed if problems [...] date. Assessment & Plan (11/05/2018 6:25 PM INSTRUCTOR OF SPANISH): Data hemoglobin HgbA1c today patient is having [...] Trivalent, IM (MDV) 06/22/2014 PPD TEST 03/11/2024 Pfizer SARS-CoV-2 Monovalent Vaccination (12+ Yrs) PURPLE 12/01/2020,12/01/2020,11/10/2020,11/10 [...] drink = 0.6 oz pur e alcohol) [facility] [employer] Answer Date Recorded In the past 12 months has [employer], gas, oil, or water [employer] threatened to shut off services in your [...] often do you attend chur ch or druze services? 1 to 4 times per year 04/08/2024 Do you belong to any clubs o r organizations such as quaker groups, unions, fraternal or athletic groups, or [...] place to sleep or slept in a group home (including now)? No 10/16/2021 Housing Stability Vital Sign Answer Kole e Recorded In the last 12 months, was t here a time when you were not able to pay the mortgage or rent on time? No 04/08/2024 In the past 12 months, how m any times have you moved where you were living? 1 04/08/2024 At any time in the past 12 m [facility], were you homeless or living in a group home (including now)? No 04/08/2024 Personal Safety Answer Date Recorded Have you ever been in or are you currently in a harmful physical or emotional relationship or is someone making you feel afraid or unsafe? Patient unable to answer 02/28/2024 Comments No Sex and Gender Information Value Date Recorded Sex Assigned at Not on file Legal Sex Female 3:07 PM INSTRUCTOR OF SPANISH Gender Identity Not on file Sexual Orientation Not on file Occupation Industry Job Start Date Job End Date Retired Not on file Not on file Not on file Last Filed Vital Signs Vital Sign Reading Time Taken Comments Blood Pressure 132/52 04/08/2025 1:16 PM CDT Pulse 56 04/08/2025 1:16 PM CDT Temperature 36.5 C (97.7 F) 04/08/2025 1:16 PM CDT Respiratory Rate 18 04/08/2025 1:16 PM CDT Oxygen Saturation 95% 04/08/2025 1:16 PM CDT Inhaled Oxygen Concentration - - Weight 60.3 kg (133 lb) 04/08/2025 1:16 PM CDT Height 162.6 cm (5' 4) 04/08/2025 1:16 PM CDT Body Mass Index 22.83 04/08/2025 1:16 PM CDT Plan of Treatment Not on file Procedures Procedure Name Priority Date/Time Associated Diagnosis Comments EGFR Routine 04/08/2025 2:13 PM CDT Fatigue, unspecified type Vertigo T4, FREE Routine 04/08/2025 2:13 PM CDT Fatigue, unspecified type Vertigo DIFFERENTIAL AUTO Routine 04/08/2025 2:1 3 PM CDT Fatigue, unspecified type Vertigo COMPREHENSIVE METABOLIC PANEL Routine 04/08/2025 2:13 PM CDT Fatigue, unspecified type Vertigo CBC WITH AUTO DIFFERENTIAL Routine 04/08/2025 2:13 PM CDT Fatigue, unspecified type Vertigo CHOLESTEROL, LDL, DIRECT Routine 04/08/2025 2:13 PM CDT Fatigue, unspecified type Vertigo THYROID FUNCTION CASCADE Routine 04/08/2025 2:13 PM CDT Fatigue, unspecified type Vertigo SCAN - RADIOLOGY/IMAGING 02/01/2025 DEXA AXIAL SKELETON BONE DENSITY 1 OR MORE SITES Schedule Routine, Read Routine (OP Routine) 10/05/2024 11:46 AM INSTRUCTOR OF SPANISH Menopause HM DIABETES EYE EXAM Routine 08/16/2024 1:31 PM INSTRUCTOR OF SPANISH HEMOGLOBIN A1C Routine 08/10/2024 11:33 AM CST Medicare annual wellness visit, subsequent Diabetes mellitus without complication (HCC) LIPID PANEL Routine 08/10/2024 11:33 AM CST Medicare annual wellness visit, subsequent Mixed hyperlipidemia ALBUMIN CREATININE RATIO, URINE Routine 08/10/2024 11:33 AM CST Medicare annual wellness visit, subsequent Diabetes mellitus without complication (HCC) from Last 3 Months or Most Recently Relevant to Health Maintenance Results * (ABNORMAL) eGFR (04/08/2025 2:13 PM CDT) eGFR 38(L) >=60 mL/min/1. 73 m2 Comment: Interpretive Data Reference Interval Normal >/= 90 mL/min/1.73m2 Mildly decreased* 60 - 89 mL/min/1.73m2 Mildly to moderately decreased 45 - 59 mL/min/1.73m2 Moderately to severely decreased 30 - 44 mL/min/1.73m2 Severely decreased 15 - 29 mL/min/1.73m2 Kidney Failure < 15 mL/min/1.73m2 *Relative to young adult level Estimated glomerular filtration rate is determined by the 2020 CKD-EPI equation recommended by the National Kidney Foundation (A Unifying Approach to GFR Estimation: Recommendations of the NKF-ASK Task Force on Reassessing the Inclusion of Race in Diagnosing Kidney Disease, JASN 2020). The CKD-EPI equation should not be used for patients with unstable renal function and has not been validated in children and those over 70. Current interpretive data was last reviewed 2021. Testing performed by: [facility], [address] [place] [address]., [id number] Blood 04/08/2025 2:13 PM CDT 04/08/2025 7:37 PM CDT us Melony Oliveros NP LAB BLOOD ORDERABLES Final Resul t [id number] [facility] Department [place] [address] * (ABNORMAL) Differential, auto (04/08/2025 2:13 PM CDT) Neutrophil abs 8.27(H) 1.50 - 6.50 K/cumm Comment:Testing performed by : [facility], [address] [place] [address]., [id number] Imm gran abs 0.05 0.00 - 0.10 K/cumm CERNER CH Comment:Testing performed by : [address], [address] Lymphocyte abs 1.75 0.80 - 3.30 K/cumm CERNER CH Comment:Testing performed by : [address], [address] Monocyte abs 0.86(H) 0.20 - 0.80 K/cumm CERNER CH Comment:Testing performed by : [address], [address] Eosinophil abs 0.07 0.00 - 0.50 K/cumm CERNER CH Comment:Testing performed by : [address], [address] Basophil abs 0.06 0.00 - 0.10 K/cumm CERNER CH Comment:Testing performed by : [address], [address] Neutrophil pct 74.8 % CERNER CH Comment: Interpretive Data Percent cell count reference ranges are not reported, since discordance with absolute values may lead to misinterpretation of CBC data. Current Interpretive Data was last revised on 2017. Testing performed by: [address], [address] Imm gran pct 0.5 % CERNER CH Comment: Interpretive Data Percent cell count reference ranges are not reported, since discordance with absolute values may lead to misinterpretation of CBC data. Current Interpretive Data was last revised on 2017. Testing performed by: [address], [address] Lymphocyte pct 15.8 % CERNER CH Comment: Interpretive Data Percent cell count reference ranges are not reported, since discordance with absolute values may lead to misinterpretation of CBC data. Current Interpretive Data was last revised on 2017. Testing performed by: [address], [address] Monocyte pct 7.8 % CERNER Comment: Interpretive Data Percent cell count reference ranges are not reported, since discordance with absolute values may lead to misinterpretation of CBC data. Current Interpretive Data was last revised on 2017. Testing performed by: [facility], [address] [place] [address]., [address] Eosinophil pct 0.6 % CERNER Comment: Interpretive Data Percent cell count reference ranges are not reported, since discordance with absolute values may lead to misinterpretation of CBC data. Current Interpretive Data was last revised on 2017. Testing performed by: [facility], [address] [place] [address]., [id number] Basophil pct 0.5 % CERNER Comment: Interpretive Data Percent cell count reference ranges are not reported, since discordance with absolute values may lead to misinterpretation of CBC data. Current Interpretive Data was last revised on 2017. Testing performed by: [address] [address] Blood 04/08/2025 2:13 PM CDT 04/08/2025 7:30 PM CDT Melony Oliveros DOPE WEIGH OPERATOR LAB BLOOD ORDERABLES Final Resul t Performing Organization Address City/[facility]/ZIP Co de Phone Number QUYNH [address] [place] [address] * (ABNORMAL) Thyroid Function [place] (04/08/2025 2:13 PM CDT) TSH 4.26(H) 0.30 - 4.20 mcIUnit/mL Comment:Testing performed by : [address] [address] Blood 04/08/2025 2:13 PM CDT 04/08/2025 7:30 PM CDT Melony Oliveros DOPE WEIGH OPERATOR LAB BLOOD ORDERABLES Final Resul t Performing Organization Address City/[facility]/ZIP Co de Phone Number QUYNH [place] [address] [address] Department of [employer] [place] [address] * (ABNORMAL) CBC with auto differential (04/08/2025 2:13 PM CDT) WBC 11.06(H) 3.80 - 9.90 K/cumm Comment:Testing performed by : [address], [address] Hgb 5.1(C) 11.9 - 15.5 g/dL CERNER CH Comment: This result has been called to Dr. Yoni Redmond by [id number] on 04/08/2025 20:02:54, and has been read back. Testing performed by: [address], [address] Hct 17.8(L) 35.6 - 45.5 % CERNER CH Comment:Testing performed by : [address], [address] Plt 504(H) 150 - 400 K/cumm CERNER CH Comment:Testing performed by : [address], [address] MPV 11.3 9.1 - 12.3 fL CERNER CH Comment:Testing performed by : [address], [address] RBC 1.82(L) 3.90 - 5.20 M/cumm CERNER CH Comment:Testing performed by : [address], [address] MCV 97.8(H) 81.3 - 96.4 fL CERNER CH Comment:Testing performed by : [address], [address] MCH 28.0 27.1 - 33.3 pg CERNER CH Comment:Testing performed by : [address], [address] MCHC 28.7(L) 32.3 - 35.7 g/dL CERNER CH Comment:Testing performed by : [address], [address] RDW CV 16.7(H) 11.1 - 14.9 % CERNER CH Comment:Testing performed by : [address], [address] RDW SD 59.8(H) 35.7 - 48.1 fL CERNER CH Comment:Testing performed by : [facility], [address] [place] [address]., [address] NRBC abs 0.02(H) 0.00 - 0.01 K/cumm QUYNH Comment:Testing performed by : [facility], [address] [place] [address]., [address] Blood 04/08/2025 2:13 PM CDT 04/08/2025 7:30 PM CDT Melony Domo LAB BLOOD ORDERABLES Final Resul t Performing Organization Address [facility] de Phone Number [place] [phone] [facility] Department [employer] [place] [address] * T4, free (04/08/2025 2:13 PM CDT) Free T4 1.30 0.90 - 1.70 ng/dL Comment:Testing performed by : [facility], [address] [place] [address]., [address] Blood 04/08/2025 2:13 PM CDT 04/08/2025 7:37 PM CDT Melony Oliveros LAB BLOOD ORDERABLES Final Resul t Performing Organization Address [facility] de Phone Number [place] [phone] [facility] Department of [employer] [place] [address] * Cholesterol, LDL, direct (04/08/2025 2:13 PM CDT) LDL Cholesterol, Direct 123 <=129 mg/dL Comment: Interpretive Data Ages < or = 19 years Acceptable: <110 mg/dL Borderline high: 110-129 mg/dL High: >or= 130 mg/dL Ages > or = 20 years Optimal: <100 mg/dL Near optimal: 100-129 mg/dL Borderline high: 130-159 mg/dL High: >160 mg/dL Literature References: 1. Expert Panel on Integrated Guidelines for Cardiovascular Health and Risk Reduction in Children and Adolescents. Pediatrics 2011;128:S213 2. NCEP Expert Panel. Circulation 2004;110:227 Current Interpretive Data was last revised on 2018. Testing performed by: [address] [address] Blood 04/08/2025 2:13 PM CDT 04/08/2025 7:30 PM CDT us Melony Domo ELMORE LAB BLOOD ORDERABLES Final Resul t [address] [place] [address] * (ABNORMAL) Comprehensive metabolic panel (04/08/2025 2:13 PM CDT) Sodium 132(L) 135 - 145 mmol/L Comment:Testing performed by : [address] [address] Potassium, pl 5.7(H) 3.3 - 4.9 mmol/L [facility] Comment:Testing performed by : [address] [address] Chloride 106 97 - 110 mmol/L [facility] Comment:Testing performed by : [address] [address] CO2 13(L) 22 - 32 mmol/L CERNER Comment:Testing performed by : [address] [address] Anion gap 13 2 - 15 mmol/L [facility] Comment:Testing performed by : [address] [address] BUN 42(H) 6 - 25 mg/dL CERNER Comment:Testing performed by : [address] [address] Creatinine 1.37(H) 0.60 - 1.10 mg/dL CERNER Comment:Testing performed by : [address] [address] Glucose 124 70 - 199 mg/dL [facility] Comment: Interpretive Data Fasting glucose >/= 126 mg/dl is diagnostic for diabetes. Fasting is defined as no caloric intake for at least 8 hours. Fasting glucose between 100 mg/dl to 125 mg/dl is diagnostic of prediabetes. In a patient with classic symptoms of hyperglycemia or hyperglycemic crisis, a random glucose >/= 200 mg/dl is diagnostic for diabetes. In the absence of unequivocal hyperglycemia, results should be confirmed by repeat testing. The classification and Diagnosis of Diabetes Diabetes Care 202; 46: S19-S40. Current interpretive data was last revised 2022. Testing performed by: [facility], [address] [place] [address]., [address] Calcium 10.2 8.5 - 10.3 mg/dL CERNER CH Comment:Testing performed by : [facility], [address] [place] [address]., [address] Bilirubin, total 0.2 0.1 - 1.2 mg/dL CERNER CH Comment:Testing performed by : [address] [address] Protein, pl 6.1(L) 6.5 - 8.5 g/dL CERNER CH Comment:Testing performed by : [address] [address] Albumin 3.6 3.5 - 5.0 g/dL CERNER CH Comment:Testing performed by : [address] [address] Alk phos 120 40 - 130 Units/L CERNER CH Comment:Testing performed by : [address] [address] ALT 13 7 - 45 Units/L CERNER CH Comment:Testing performed by : [address] [address] AST 21 10 - 45 Units/L CERNER CH Comment:Testing performed by : [address] [address] Blood 04/08/2025 2:13 PM CDT 04/08/2025 7:30 PM CDT Melony Oliveros NP LAB BLOOD ORDERABLES Final Resul t QUYNH Sunitha Shaheed Department [place] [address] * SCAN - RADIOLOGY/IMAGING (02/01/2025) Anatomical Region Laterality Modality Other us Osmel Moe MD Final Resu lt * Dexa Axial Skeleton Bone Density 1 or 2 Site (10/05/2024 11:46 AM INSTRUCTOR OF SPANISH) Anatomical Region Laterality Modality Body N/A Other 10/05/2024 8:4 1 PM INSTRUCTOR OF SPANISH Narrative 10/05/2024 8:42 PM INSTRUCTOR OF SPANISH EXAM DESCRIPTION: DEXA AXIAL SKELETON BONE DENSITY 1 OR MORE SITES REASON FOR STUDY: 84 y/o year old F with given history of: menopause Osteoporosis screening 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 FINDINGS: AP LUMBAR SPINE L1-L4: Total BMD is 0.893 g/cm2 T-score is -1.4 LEFT HIP: Total BMD is 0.634 g/cm2 T-score is -2.5 Femoral neck BMD is 0.678 g/cm2 T-score is -1.5 FRAX: FRAX not reported due to T-scores of hip, femoral neck and/or spine being at or below -2.5 (Osteoporosis). IMPRESSION: Osteoporosis. REFERENCE: Bone mineral density: T-Score: Normal (T-score above or = -1.0) Low bone mass (T-score between -1.0 and -2.5) replaces the previously used term osteopenia Osteoporosis (T-score = or below -2.5) Z-Score: Within the expected range for age (Z-score above -2.0) Below the expected range for age (Z-score is -2.0 or below) Please see below follow up recommendations. Medical evaluation for secondary causes of low bone mineral density may be appropriate. FRAX is a World Health Organization validated fracture risk assessment tool that calculates a person's 10 year probability of a major osteoporosis related fracture and hip fracture. According to the National Osteoporosis Foundation guidelines, postmenopausal women and men age 50 or older with low bone mass and a 10 year probability of a major osteoporosis related fracture = or greater than 20% or a 10 year probability of a hip fracture = or greater than 3% should be considered for pharmacological treatment for the prevention of osteoporosis. For further information, including treatment recommendations, please refer to the 2019 ISCD Official Positions (http://www.iscd.org) and the NOF's Clinician's Guide to Prevention and Treatment of Osteoporosis (http://www.nof.org/professionals/clinical-guidelines) THIS IS AN ELECTRONICALLY VERIFIED FINAL REPORT 10/05/2024 8:42 PM - Electronically signed by Abelardo Rooney M.D. 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 FINDINGS: AP LUMBAR SPINE L1-L4: Total BMD is 0.893 g/cm2 T-score is -1.4 LEFT HIP: Total BMD is 0.634 g/cm2 T-score is -2.5 Femoral neck BMD is 0.678 g/cm2 T-score is -1.5 FRAX: FRAX not reported due to T-scores of hip, femoral neck and/or spine beingat or below -2.5 (Osteoporosis). IMPRESSION: Osteoporosis. REFERENCE: Bone mineral density: T-Score: Normal (T-score above or = -1.0) Low bone mass (T-score between -1.0 and -2.5) replaces thepreviously used term osteopenia Osteoporosis (T-score = or below -2.5) Z-Score: Within the expected range for age (Z-score above -2.0) Below the expected range for age (Z-score is -2.0 or below) Please see below follow up recommendations. Medical evaluation forsecondary causes of low bone mineral density may be appropriate. FRAX is a World Health Organization validated fracture risk assessmenttool that calculates a person's 10 year probability of a major osteoporosisrelated fracture and hip fracture. According to the National OsteoporosisFoundation guidelines, postmenopausal women and men age 50 or older with low bonemass and a 10 year probability of a major osteoporosis related fracture = or greater than 20% or a 10 year probability of a hip fracture = or greaterthan 3% should be considered for pharmacological treatment for the preventionof osteoporosis. For further information, including treatment recommendations, please referto the 2019 ISCD Official Positions (http://www.iscd.org) and the NOF's Clinician's Guide to Prevention and Treatment of Osteoporosis (http://www.nof.org/professionals/clinical-guidelines) THIS IS AN ELECTRONICALLY VERIFIED FINAL REPORT 10/05/2024 8:42 PM - Electronically signed by Abelardo Rooney M.D. MF: [email or web address] Report ID: [id number] Reading Location: [place] [address] Osmel Moe MD IMG DXA PROCEDURES Final R esult * DIABETES EYE EXAM (08/16/2024 1:31 PM INSTRUCTOR OF SPANISH) [facility] SCRIBED DIABETIC DILATED EYE EXAM Normal Historical Provider HEALTH MAINTENANCE Final Result * (ABNORMAL) Albumin Creatinine Ratio, Urine (08/10/2024 11:33 AM INSTRUCTOR OF SPANISH) [facility] Albumin Ur 91.5 mg/L Comment: Interpretive Data No reference range established. Current interpretive data was last revised 2019. Testing performed by: [facility], [address] [place] [address], [place]., [address] Creatinine Ur 89.8 mg/dL QUYNH Comment: Interpretive Data No reference range established. Current interpretive data was last revised 2019. Testing performed by: [facility], [address] [place] [address], [place]., [address] Albumin Creatinine Ratio, Ur 102(H) 1 - 29 mg/g QUYNH Comment:Testing performed by : [address] [address] Urine 08/10/2024 11:3 3 AM INSTRUCTOR OF SPANISH 08/10/2024 5:40 PM INSTRUCTOR OF SPANISH Osmel Moe MD LAB URINE ORDERABLES Final Result Performing Organization Address [facility] de Phone Number QUYNH [address] Department of [employer] [place] [address] * (ABNORMAL) Hemoglobin A1c (08/10/2024 11:33 AM INSTRUCTOR OF SPANISH) Hgb A1C 5.7(H) 4.0 - 5.6 % Comment:Testing performed by : [address] [address] Estimated Average Glucose 117 mg/dL QUYNH Comment: The ADA recommends reporting an estimated Average Glucose (eAG) with all Hemoglobin A1c results using the equation derived from a study of 507 normal and diabetic adults. Minority populations were underrepresented and children were not included. (Diabetes Care 31:4908-4354, 2008). The eAG is not equivalent to a fasting glucose. Testing performed by: [address] [address] Blood 08/10/2024 11:3 3 AM INSTRUCTOR OF SPANISH 08/10/2024 5:40 PM INSTRUCTOR OF SP[employer]ISH Osmel Moe MD LAB BLOOD ORDERABLES Final Result Performing Organization Address [facility] Co de Phone Number QUYNH [address] [facility] [place] [address] * Lipid panel (08/10/2024 11:33 AM INSTRUCTOR OF SPANISH) Cholesterol 192 30 - 199 mg/dL Comment: Interpretive Data Ages < or = 19 years Acceptable: <170 mg/dL Borderline high: 170-199 mg/dL High: >or= 200 mg/dL Ages > or = 20 years Desirable: <200 mg/dL Borderline high: 200-239 mg/dL High: >or= 240 mg/dL Literature References: 1. Expert Panel on Integrated Guidelines for Cardiovascular Health and Risk Reduction in Children and Adolescents. Pediatrics 2011;128:S213 2. NCEP Expert Panel. Circulation 2004;110:227 Current Interpretive Data was last revised on 2018. Testing performed by: [facility], [address] [place] [address]., [address] Triglycerides 105 <=149 mg/dL QUYNH Comment: Interpretive Data Ages < or = 9 years Acceptable: <75 mg/dL Borderline high: 75-99 mg/dL High: >or= 100 mg/dL Ages 10 to 20 years Acceptable: <90 mg/dL Borderline high: 90-129 mg/dL High: >or= 130 mg/dL Ages > or = 20 years Desirable: <150 mg/dL Borderline high: 150-199 mg/dL High: 200-499 mg/dL Very high: >or= 499 mg/dL Literature References: 1. Expert Panel on Integrated Guidelines for Cardiovascular Health and Risk Reduction in Children and Adolescents. Pediatrics 2011;128:S213 2. NCEP Expert Panel. Circulation 2004;110:227 Current Interpretive Data was last revised on 2018. Testing performed by: [facility], [address] [place] [address]., [address] HDL 46 >=40 mg/dL [facility] Comment: Interpretive Data Ages < or = 19 years Acceptable: >45 mg/dL Borderline low: 40-45 mg/dL Low: <40 mg/dL Ages > or = 20 years Desirable: >or= 60 mg/dL Low: <40 mg/dL Literature References: 1. Expert Panel on Integrated Guidelines for Cardiovascular Health and Risk Reduction in Children and Adolescents. Pediatrics 2011;128:S213 2. NCEP Expert Panel. Circulation 2004;110:227 Current Interpretive Data was last revised on 2018. Testing performed by: [facility], [address] [place] [address]., [address] LDL, calculated 127 <=129 mg/dL QUYNH Comment: Interpretive Data Ages < or = 19 years Acceptable: <110 mg/dL Borderline high: 110-129 mg/dL High: >or= 130 mg/dL Ages > or = 20 years Optimal: <100 mg/dL Near optimal: 100-129 mg/dL Borderline high: 130-159 mg/dL High: >160 mg/dL Calculated using the Gordon LDL-C estimating equation. This equation was implemented on 2024. Prior to this date LDL-C was estimated using the Friedewald equation. Literature References: 1. Expert Panel on Integrated Guidelines for Cardiovascular Health and Risk Reduction in Children and Adolescents. Pediatrics 2011;128:S213 2. NCEP Expert Panel. Circulation 2004;110:227 3. Evan Sanchez et al. CHEO Cardiol. 2019January 20;5(5):540-548. doi: 10.1001/[email or web address] Current Interpretive Data was last revised on 2024. Testing performed by: [address] [address] Non-HDL Cholesterol 146 mg/dL QUYNH [place] Comment: Interpretive Data Ages < or = 19 years Acceptable: <120 mg/dL Borderline high: 120-144 mg/dL High: >145 mg/dL Ages > or = 20 years When triglycerides are >200 mg/dL, Non-HDL cholesterol is a secondary target of therapy with treatment goals that are 30 mg/dL greater than the LDL cholesterol target. Literature References: 1. Expert Panel on Integrated Guidelines for Cardiovascular Health and Risk Reduction in Children and Adolescents. Pediatrics 2011;128:S213 2. NCEP Expert Panel. Circulation 2004;110:227 Current Interpretive Data was last revised on 2018. Testing performed by: [address] [address] Chol/HDL ratio 4 QUYNH [place] Comment:Testing performed by : [address] [address] Blood 08/10/2024 11:3 3 AM INSTRUCTOR OF SPANISH 08/10/2024 5:40 PM INSTRUCTOR OF SPANISH us Osmel Moe MD LAB BLOOD ORDERABLES Final Result QUY[facility] [place] [id number] [place] [address] Department [place] [address] from Last 3 Months or Most Recently Relevant to Health Maintenance Insurance [employer] MEDICARE PPO MEDICARE [facility] [employer] MEDICARE PPO [employer] MEDICARE PPO Advance Directives For more information, please contact: [phone] * Full Code (Latest Code Status on File) Date Activated Date Inactivated Comments 10/02/2021 12:09 AM 10/05/2021 8:30 PM Care Teams Interlocker Relationship Specialty Start Date End Date Osmel Moe MD PCP - General 12/20/16 Gomez Raymond MD Consulting Physician Urology 10/04/21 James Suarez MD Consulting Physician Cardiovascular Disease 10/05/21 Ramo Squires MD Consulting Physician Urology 01/23/22 James Juarez MD Referring Physician Dermatology 03/03/23
--- OUTSIDE RECORDS SUMMARY | 2025-04-08 21:18 | XMS_ITS | Encounter Summary ---
Author Organization [facility] Healthcare Address [address] [place] [address] Care Team Providers Care Greenskeeper Laborer Name Role Phone Osmel Moe MD Primary Care Provider + [phone] Gomez Raymond MD Unavailable [phone] James Suarez MD Unavailable [phone] Ramo Squires MD Unavailable [phone] James Juarez MD Unavailable [phone] Encounter Details Date Type Department Care Team (Late st Contact Info) Description 04/08/2025 2:20 PM CDT Lab [facility] [address] [place] [id number] Fatigue, unspecified type; Vertigo; Diabetes mellitus without complication (HCC) Social History Tobacco Use Types Packs/Day Years Used Date Smoking Tobacco: Never Passive Smoke Exposure: Past Smokeless Tobacco: Never Alcohol Use Standard Drinks/Week Comments Yes 0 (1 standard drink = 0.6 oz pur e alcohol) [facility] Utilities Answer Date Recorded In the past 12 months has [employer] electric, gas, oil, or water company threatened [...] often do you attend chur ch or jain services? 1 to 4 times per year 04/08/2024 Do you belong to any clubs o r organizations such as catholic groups, unions, fraternal or athletic groups, [...] place to sleep or slept in a residential (including now)? No 10/16/2021 Housing Stability Vital Sign Answer Kole e Recorded In the last 12 months, was t here a time when you were not able to pay the mortgage or rent on time? No 04/08/2024 In the past 12 months, how m any times have you moved where you were living? 1 04/08/2024 At any time in the past 12 m [facility], were you homeless or living in a residential (including now)? No 04/08/2024 Personal Safety Answer Date Recorded Have you ever been in or are you currently in a harmful physical or emotional relationship or is someone making you feel afraid or unsafe? 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 Gender Identity Not on file Sexual Orientation Not on file Occupation Industry Job Start Date Job End Date Retired Not on file Not on file Not on file documented as of this encounter Plan of Treatment Pending Results Name Type Priority Associated Diagnoses Date /Time Hemoglobin A1c Lab Routine Diabetes mellitus without complication (HCC) 04/08/2025 2:13 PM CDT documented as of this encounter Procedures Procedure Name Priority Date/Time Associated Diagnosis Comments EGFR Routine 04/08/2025 2:13 PM CDT Fatigue, unspecified type Vertigo DIFFERENTIAL AUTO Routine 04/08/2025 2:1 3 PM CDT Fatigue, unspecified type Vertigo THYROID FUNCTION CASCADE Routine 04/08/2025 2:13 PM CDT Fatigue, unspecified type Vertigo CBC WITH AUTO DIFFERENTIAL Routine 04/08/2025 2:13 PM CDT Fatigue, unspecified type Vertigo T4, FREE Routine 04/08/2025 2:13 PM CDT Fatigue, unspecified type Vertigo CHOLESTEROL, LDL, DIRECT Routine 04/08/2025 2:13 PM CDT Fatigue, unspecified type Vertigo COMPREHENSIVE METABOLIC PANEL Routine 04/08/2025 2:13 PM CDT Fatigue, unspecified type Vertigo documented in this encounter Results * (ABNORMAL) eGFR (04/08/2025 2:13 PM [...] was last reviewed 2021. Testing performed by: [facility], [address] [place] [address], [place] [address] Blood 04/08/2025 2:13 PM CDT 04/08/2025 7:37 PM CDT us Melony Oliveros DINING SERVICE INSPECTOR LAB BLOOD ORDERABLES Final [facility]ul t [facility] [id number] [facility] Department [place] [address] * T4, free (04/08/2025 2:13 PM CDT) Free T4 1.30 0.90 - 1.70 ng/dL Comment:Testing performed by : [address] [place] [address] Blood 04/08/2025 2:13 PM CDT 04/08/2025 7:37 PM CDT us Melony Domo ELMORE LAB BLOOD ORDERABLES Final Resul t [address] Department [place] [address] * (ABNORMAL) Differential, auto (04/08/2025 2:13 PM CDT) Neutrophil abs 8.27(H) 1.50 - 6.50 K/cumm Comment:Testing performed by : [facility], [address] [place] [address]., [address] Imm gran abs 0.05 0.00 - 0.10 K/cumm [facility] Comment:Testing performed by : [facility], [address] [place] [address]., [address] Lymphocyte abs 1.75 0.80 - 3.30 K/cumm [facility] Comment:Testing performed by : [address] [address] Monocyte abs 0.86(H) 0.20 - 0.80 K/cumm [facility] Comment:Testing performed by : [address] [address] Eosinophil abs 0.07 0.00 - 0.50 K/cumm [facility] Comment:Testing performed by : [address] [address] Basophil abs 0.06 0.00 - 0.10 K/cumm [facility] Comment:Testing performed by : [address], [address] Neutrophil pct 74.8 % [facility] Comment: Interpretive Data Percent cell count reference ranges are not reported, since discordance with absolute values may lead to misinterpretation of CBC data. Current Interpretive Data was last revised on 2017. Testing performed by: [address], [address] Imm gran pct 0.5 % C[facility] Comment: Interpretive Data Percent cell count reference ranges are not reported, since discordance with absolute values may lead to misinterpretation of CBC data. Current Interpretive Data was last revised on 2017. Testing performed by: [facility], [address] [place] [address]., [address] Lymphocyte pct 15.8 % [facility] Comment: Interpretive Data Percent cell count reference ranges are not reported, since discordance with absolute values may lead to misinterpretation of CBC data. Current Interpretive Data was last revised on 2017. Testing performed by: [facility], [address] [place] [address]., [address] Monocyte pct 7.8 % C[facility] Comment: Interpretive Data Percent cell count reference ranges are not reported, since discordance with absolute values may lead to misinterpretation of CBC data. Current Interpretive Data was last revised on 2017. Testing performed by: [address] [address] Eosinophil pct 0.6 % [facility] Comment: Interpretive Data Percent cell count reference ranges are not reported, since discordance with absolute values may lead to misinterpretation of CBC data. Current Interpretive Data was last revised on 2017. Testing performed by: [address] [address] Basophil pct 0.5 % [facility] Comment: Interpretive Data Percent cell count reference ranges are not reported, since discordance with absolute values may lead to misinterpretation of CBC data. Current Interpretive Data was last revised on 2017. Testing performed by: [address] [address] Blood 04/08/2025 2:13 PM CDT 04/08/2025 7:30 PM CDT Melony Oliveros DINING SERVICE INSPECTOR LAB BLOOD ORDERABLES [facility] [id number] [place] [address] Department [place] [address] * (ABNORMAL) Comprehensive metabolic panel (04/08/2025 2:13 PM CDT) Sodium 132(L) 135 - 145 mmol/L Comment:Testing performed by : [address] [address] Potassium, pl 5.7(H) 3.3 - 4.9 mmol/L [facility] Comment:Testing performed by : [facility], [address] [place] [address]., [address] Chloride 106 97 - 110 mmol/L [facility] CH Comment:Testing performed by : [facility], [address] [place] [address]., [address] CO2 13(L) 22 - 32 mmol/L [facility] CH Comment:Testing performed by : [address], [address] Anion gap 13 2 - 15 mmol/L [facility] CH Comment:Testing performed by : [facility], [address] [place] [address], [address] BUN 42(H) 6 - 25 mg/dL [facility] CH Comment:Testing performed by : [address], [address] Creatinine 1.37(H) 0.60 - 1.10 mg/dL [facility] Comment:Testing performed by : [address], [address] Glucose 124 70 - 199 mg/dL [facility] CH Comment: Interpretive Data Fasting glucose >/= 126 [...] classification and Diagnosis of Diabetes Diabetes Care 2021; 46: S19-S40. Current interpretive data was last revised 2022. Testing performed by: [facility], [address] [place] [address]., [address] Calcium 10.2 8.5 - 10.3 mg/dL [facility] Comment:Testing performed by : [address] [address] Bilirubin, total 0.2 0.1 - 1.2 mg/dL [facility] Comment:Testing performed by : [address], [address] Protein, pl 6.1(L) 6.5 - 8.5 g/dL [facility] Comment:Testing performed by : [address] [address] Albumin 3.6 3.5 - 5.0 g/dL C[facility]ER Comment:Testing performed by : [address] [address] Alk phos 120 40 - 130 Units/L [facility] CH Comment:Testing performed by : [address], [address] ALT 13 7 - 45 Units/L [facility] CH Comment:Testing performed by : [address], [address] AST 21 10 - 45 Units/L [facility] CH Comment:Testing performed by : [address], [address] Blood 04/08/2025 2:13 PM CDT 04/08/2025 7:30 PM CDT us Melony Oliveros DINING SERVICE INSPECTOR LAB BLOOD ORDERABLES Final Resul t [address] Department [place] [address] * (ABNORMAL) CBC with auto differential (04/08/2025 2:13 PM CDT) WBC 11.06(H) 3.80 - 9.90 K/cumm Comment:Testing performed by : [address], [address] Hgb 5.1(C) 11.9 - 15.5 g/dL CERNER Comment: This result has been called to Dr. Yoni Redmond by [id number] on 04/08/2025 20:02:54, and has been read back. Testing performed by: [address] [address] Hct 17.8(L) 35.6 - 45.5 % [facility] Comment:Testing performed by : [address], [address] Plt 504(H) 150 - 400 K/cumm [facility] CH Comment:Testing performed by : [address], [address] MPV 11.3 9.1 - 12.3 fL [facility] Comment:Testing performed by : [facility], [address] [place] [address], [address] RBC 1.82(L) 3.90 - 5.20 M/cumm [facility] Comment:Testing performed by : [address] [address] MCV 97.8(H) 81.3 - 96.4 fL [facility] Comment:Testing performed by : [facility], [address] [place] [address], [address] MCH 28.0 27.1 - 33.3 pg [facility] Comment:Testing performed by : [address], [address] MCHC 28.7(L) 32.3 - 35.7 g/dL [facility] Comment:Testing performed by : [address], [address] RDW CV 16.7(H) 11.1 - 14.9 % [facility] Comment:Testing performed by : [address], [address] RDW SD 59.8(H) 35.7 - 48.1 fL [facility] Comment:Testing performed by : [address], [address] NRBC abs 0.02(H) 0.00 - 0.01 K/cumm [facility] Comment:Testing performed by : [address], [address] Blood 04/08/2025 2:13 PM CDT 04/08/2025 7:30 PM CDT us Melony Oliveros NP LAB BLOOD ORDERABLES Final Resul t [address] Department [place] [address] * Cholesterol, LDL, direct (04/08/2025 2:13 PM [...] last revised on 2018. Testing performed by: [address] [address] Blood 04/08/2025 2:13 PM CDT 04/08/2025 7:30 PM CDT Melony Oliveros LAB BLOOD ORDERABLES Final Resul t Performing Organization Address [facility] de Phone Number [phone] [phone] [address] Department [employer] [place] [address] * (ABNORMAL) Thyroid Function [place] (04/08/2025 2:13 PM CDT) TSH 4.26(H) 0.30 - 4.20 mcIUnit/mL Comment:Testing performed by : [address] [address] Blood 04/08/2025 2:13 PM CDT 04/08/2025 7:30 PM CDT Melony Oliveros DINING SERVICE INSPECTOR LAB BLOOD ORDERABLES Final Resul t Performing Organization Address [facility] Co de Phone Number [phone] [phone] [address] [place] [place] [address] documented in this encounter Visit Diagnoses Diagnosis Fatigue, unspecified type Vertigo Dizziness and giddiness Diabetes mellitus without complication (HCC) Type II or unspecified type diabetes mellitus without mention of complication, not stated as uncontrolled documented in this encounter Care Teams Greenskeeper Laborer Relationship Specialty Start Date End Date Osmel Moe MD PCP - General 12/20/16 Gomez Raymond MD Consulting Physician Urology 10/04/21 James Suarez MD Consulting Physician Cardiovascular Disease 10/05/21 Ramo Squires MD Consulting Physician Urology 01/23/22 James Juarez MD Referring Physician Dermatology 03/03/23 documented as of this encounter
--- OUTSIDE RECORDS SUMMARY | 2025-04-08 21:18 | XMS_ITS | Encounter Summary ---
Author Organization [facility] Healthcare Address [address] [place] [address] Care Team Providers Care Gas Appliance Servicer Name Role Phone Osmel Moe MD Primary Care Provider + [phone] Gomez Raymond MD Unavailable [phone] James Suarez MD Unavailable [phone] Ramo Squires MD Unavailable [phone] James Juarez MD Unavailable [phone] Reason for Referral * Home Health (Routine) - Pending Review Specialty Diagnoses / Procedures Referred By eJnnyfer rojas Referred To Contact Home Health Services Diagnoses Fatigue, unspecified type Vertigo BCC (basal cell carcinoma), lip Diabetes mellitus without complication (HCC) 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 Requested Start of Care Date: 24-48 hours Physician to follow patient's care (the person listed here will be responsible for signing ongoing orders): PCP I attest that I or another qualified licensed provider saw the patient 90 days prior to or 30 days post admission and this face to face encounter meets the necessary Home Health requirements. The face to face encounter occurred on (date): 04/08/2025 The encounter with the patient was in whole, or in part, for the following medical condition, which is the primary reason for home health care. (List medical condition): Asking about home health for dressing/bathing, please advise. I certify that, based on my findings, the following services are medically necessary skilled home health services: Other Comment Asking about home health for dressing/bathing, please advise. Clinical findings that support the need for home care: Other Comment: Asking about home health for dressing/bathing, please advise. I certify that my clinical findings support patient's homebound status. Homebound criteria met because: Requires assistance of another to leave home safely, Abnormal gait/unsteady balance resulting in fall risk, Bedbound/chairbound/requires wheelchair/requires assistive device, Requires maximum assistance to stand/ambulate, Requires a taxing effort to leave the home safely Referral/ Patient Comments Asking about home health for dressing/bathing, please advise. Reason for Visit * Reason Comments weak dizzy and confused Encounter Details Date Type Department Care Team (Late st Contact Info) Description 04/08/2025 1:00 PM CDT Office Visit [facility] [address] [place] [address] Melony Oliveros NP [address] [place] [address] Other fatigue (Primary Dx); Vertigo; Essential hypertension; Paroxysmal atrial fibrillation (HCC); Diabetes mellitus without complication (HCC); BCC (basal cell carcinoma), lip Social History Tobacco Use Types Packs/Day Years Used Date Smoking Tobacco: Never Passive Smoke Exposure: Past Smokeless Tobacco: Never Alcohol Use Standard Drinks/Week Comments Yes 0 (1 standard drink = 0.6 oz pur e alcohol) [facility] Utilities Answer Date Recorded In the past 12 months has [employer], gas, oil, or water [employer] threatened to shut off services in your [...] often do you attend chur ch or episcopal services? 1 to 4 times per year 04/08/2024 Do you belong to any clubs o r organizations such as jew groups, unions, fraternal or athletic groups, or [...] place to sleep or slept in a halfway (including now)? No 10/16/2021 Housing Stability Vital Sign Answer Kole e Recorded In the last 12 months, was t here a time when you were not able to pay the mortgage or rent on time? No 04/08/2024 In the past 12 months, how m any times have you moved where you were living? 1 04/08/2024 At any time in the past 12 m [facility], were you homeless or living in a halfway (including now)? No 04/08/2024 Personal Safety Answer Date Recorded Have you ever been in or are you currently in a harmful physical or emotional relationship or is someone making you feel afraid or unsafe? 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 documented in this encounter Ordered Prescriptions Prescription Sig Dispense Quantity Refills Last Filled Start Date End Date potassium chloride ER (KLOR-CON) 20 mEq CR tablet Take 1 and 1/2 tablets by mouth daily (30 MEQ) daily. 135 tablet 1 04/08/2025 ciprofloxacin (CIPRO) 250 mg tablet Take 1 tablet (250 mg total) by mouth 2 (two) times a day for 5 days TAKE 1 TABLET BY MOUTH TWICE DAILY FOR 5 DAYS AT A TIME FOR RECURRING KIDNEY INFECTIONS 10 tablet 04/08/2025 5 ondansetron ODT (ZOFRAN-ODT) 4 mg disintegrating tablet Take 1 tablet (4 mg total) by mouth every 8 (eight) hours as needed for nausea or vomiting 20 tablet 04/08/2025 ciprofloxacin (CIPRO) 250 mg tablet Take 1 tablet (250 mg total) by mouth 2 (two) times a day for 5 days TAKE 1 TABLET BY MOUTH TWICE DAILY FOR 5 DAYS AT A TIME FOR RECURRING KIDNEY INFECTIONS - ENOUGH FOR 3 TREATMENTS 10 tablet 04/08/2025 5 documented in this encounter Progress Notes * Melony Oliveros NP - 04/08/2025 1:00 PM CDT Images from the original note were not included. Patient ID: Gely Hi is a 84 y.o. female. Chief Complaint. Chief Complaint Patient presents with weak dizzy and confused This patient has verbally consented to recording this visit in order to utilize AI technology in generating this note. HPI. Patient is a 84 y.o. female History of Present Illness Gely Camilo is an 84 year old female with atrial fibrillation who presents with dizziness, headaches, and disorientation. She has been experiencing persistent dizziness since Friday, which improves when lying down and does not worsen with head movement. She reports feeling disoriented and dizzy, especially when transitioning from lying down to standing up. She also experiences photophobia and blurry vision, which complicates reading as 'the words just jump around on the page'. These visual changes were occurring before the dizziness started. Her headaches are described as a dull throbbing pain located at the front of her head, occasionallyaffecting right side. She has no ear pain but reports persistent seasonal rhinorrhea. Her vision isaffected, with difficulty seeing clearly, and she feels sensitive to light. No new chest pain, palpitations, or significant shortness of breath, although she sometimes experiences mild dyspnea on exertion. She is barely able to stand on scale long enough to get a weight without swaying/dizziness. She has a history of recurrent urinary tract infections and is currently on a five-day course of Ciprofloxacin, which she started on Friday night (2 days ago). She reports a flare-up of symptoms, including diarrhea, which began after dinner on Friday. She also experienced urinary changes on Friday evening, with increased frequency and urgency. Denies fevers. Her past medical history includes atrial fibrillation, for which she is on medication. She also takes a potassium supplement, which is due for a refill. She sees cardiology and urology on a regular basis. There have been no recent changes in her medication regimen except for the current antibiotic course. No recent labs CT abdomen 02/2024- chronic changes and perinephritic abscess. CT head 02/2024 normal. ECHO 04/2024 70%, grade 1 DD. Current Medications: Outpatient Encounter Medications as of 04/08/2025 Medication Sig Dispense Refill acetaminophen (TYLENOL) 325 mg tablet Take 2 tablets (650 mg total) by mouth every 6 (six) hours asneeded for pain allopurinoL (ZYLOPRIM) 300 mg tablet TAKE 1 TABLET(300 MG) BY MOUTH EVERY MORNING 90 tablet 1 amLODIPine (NORVASC) 5 mg tablet Take 1 tablet (5 mg total) by mouth daily 90 tablet 1 ascorbic acid, vitamin C, (VITAMIN C) 500 mg capsule, extended release CR capsule 500 mg. 0 cholecalciferol (VITAMIN D-3) 2000 unit tablet Take 1 tablet (2,000 Units total) by mouth daily cyanocobalamin (Vitamin B-12) 1,000 mcg sublingual tablet Take 1 tablet (1,000 mcg total) by mouth daily metoprolol XL (TOPROL-XL) 25 mg extended release tablet Take 1 tablet (25 mg total) by mouth every morning 90 tablet 1 valsartan-hydroCHLOROthiazide (DIOVAN-HCT) 80-12.5 mg per tablet TAKE 1 TABLET BY MOUTH DAILY 90 tablet 3 Xarelto 15 mg tablet TAKE 1 TABLET(15 MG) BY MOUTH DAILY WITH BREAKFAST 90 tablet 3 [DISCONTINUED] ciprofloxacin (CIPRO) 250 mg tablet TAKE 1 TABLET BY MOUTH TWICE DAILY FOR 5 DAYS SHANIQUA TIME FOR RECURRING KIDNEY INFECTIONS - ENOUGH FOR 3 TREATMENTS [DISCONTINUED] potassium chloride ER (KLOR-CON) 20 mEq CR tablet Take 1 and 1/2 tablets by mouth daily (30 MEQ) daily. 135 tablet 1 alendronate (Fosamax) 70 mg tablet Take 1 tablet (70 mg total) by mouth every 7 days Take in the morning with a full glass of water, on an empty stomach, and do not take anything else by mouth or liedown for the next 30 min. (Patient not taking: Reported on 04/08/2025) ciprofloxacin (CIPRO) 250 mg tablet Take 1 tablet (250 mg total) by mouth 2 (two) times a day for 5days TAKE 1 TABLET BY MOUTH TWICE DAILY FOR 5 DAYS AT A TIME FOR RECURRING KIDNEY INFECTIONS 10 tablet 0 ondansetron ODT (ZOFRAN-ODT) 4 mg disintegrating tablet Take 1 tablet (4 mg total) by mouth every 8(eight) hours as needed for nausea or vomiting 20 tablet 0 potassium chloride ER (KLOR-CON) 20 mEq CR tablet Take 1 and 1/2 tablets by mouth daily (30 MEQ) daily. 135 tablet 1 vitamin B complex capsule Take 1 capsule by mouth daily [DISCONTINUED] ciprofloxacin (CIPRO) 250 mg tablet Take 1 tablet (250 mg total) by mouth 2 (two) times a day for 5 days TAKE 1 TABLET BY MOUTH TWICE DAILY FOR 5 DAYS AT A TIME FOR RECURRING KIDNEY INFECTIONS - ENOUGH FOR 3 TREATMENTS 10 tablet 0 [DISCONTINUED] mupirocin (BACTROBAN) 2 % cream Apply topically 3 (three) times a day (Patient not taking: Reported on 04/08/2025) 15 g 1 [DISCONTINUED] triamcinolone (KENALOG) 0.5 % cream Apply topically 2 (two) times a day for 14 days (Patient not taking: Reported on 04/08/2025) 30 g 0 No facility-administered encounter medications on file as of 04/08/2025. Medications Discontinued During This Encounter Medication Reason triamcinolone (KENALOG) 0.5 % cream Therapy completed mupirocin (BACTROBAN) 2 % cream Therapy completed ciprofloxacin (CIPRO) 250 mg tablet Reorder ciprofloxacin (CIPRO) 250 mg tablet Reorder potassium chloride ER (KLOR-CON) 20 mEq CR tablet Reorder Review of Systems All other systems reviewed and are negative. BP 132/52 (BP Location: Left arm, Patient Position: Sitting) Pulse 56 Temp 36.5 ??C (97.7 ??F) (Temporal) Resp 18 Ht 162.6 cm (5' 4) Wt 60.3 kg (133 lb) LMP (LMP Unknown) SpO2 95% BMI 22.83 kg/m?? Body mass index is 22.83 kg/m??. Wt Readings from Last 3 Encounters: 04/08/25 60.3 kg (133 lb) 02/07/25 62.5 kg (137 lb 12.8 oz) 08/10/24 60.4 kg (133 lb 3.2 oz) Physical Exam Vitals and nursing note reviewed. Constitutional: General: She is not in acute distress. Appearance: Normal appearance. She is ill-appearing (pale, fatigued, dizzy/swaying upon standing). HENT: Head: Normocephalic and atraumatic. Right Ear: Tympanic membrane and ear canal normal. Left Ear: Tympanic membrane and ear canal normal. Mouth/Throat: Mouth: Mucous membranes are moist. Pharynx: Oropharynx is clear. No oropharyngeal exudate or posterior oropharyngeal erythema. Eyes: General: Lids are everted, no foreign bodies appreciated. Vision grossly intact. Right eye: No discharge or hordeolum. Left eye: No discharge or hordeolum. Extraocular Movements: Right eye: Nystagmus (horizontal) present. Left eye: Nystagmus (horizontal) present. Conjunctiva/sclera: Conjunctivae normal. Pupils: Pupils are equal, round, and reactive to light. Neck: Thyroid: No thyroid mass, thyromegaly or thyroid tenderness. Vascular: No carotid bruit. Trachea: Phonation normal. No tracheal deviation. Cardiovascular: Rate and Rhythm: Normal rate and regular rhythm. Heart sounds: Murmur (grade 2 systolic) heard. No friction rub. No gallop. Pulmonary: Effort: Pulmonary effort is normal. No respiratory distress. Breath sounds: Normal breath sounds. Abdominal: General: There is no distension. Palpations: Abdomen is soft. There is no mass. Tenderness: There is no abdominal tenderness. There is no right CVA tenderness or left CVA tenderness. Genitourinary: Comments: exam deferred due to dizziness and inability to get on exam table. Musculoskeletal: Cervical back: Normal range of motion. No rigidity. Right lower leg: No edema. Left lower leg: No edema. Comments: Being pushed in her rollator walker. Unable to stand on scale long enough to obtain weight without swaying. Moves all extremities appropriately during exam. Lymphadenopathy: Cervical: No cervical adenopathy. Skin: General: Skin is warm and dry. Coloration: Skin is pale. Findings: No rash. Neurological: General: No focal deficit present. Mental Status: She is alert and oriented to person, place, and time. Sensory: No sensory deficit. Motor: Weakness present. Gait: Gait abnormal. Psychiatric: Mood and Affect: Mood normal. Behavior: Behavior normal. Physical Exam HEENT: Eyes normal. Throat normal. Ears normal. NECK: Neck normal. CHEST: Clear to auscultation bilaterally. CARDIOVASCULAR: Heart murmur present. NEUROLOGICAL: Nystagmus present. SKIN: Skin normal. Results Echocardiogram: Normal (April 2024) Head CT: normal (02/2024) No visits with results within 3 Month(s) from this visit. Latest known visit with results is: Abstract on 08/17/2024 Component Date Value SCRIBED HM DIABETIC DILA* 08/16/2024 Normal Assessment & Plan: Diagnoses and all orders for this visit: Other fatigue (Primary) - Comprehensive metabolic panel; Future - CBC with auto differential; Future - Cholesterol, LDL, direct; Future - Thyroid Function [place]; Future - Ambulatory referral to Home Health; Future Vertigo - Comprehensive metabolic panel; Future - CBC with auto differential; Future - Cholesterol, LDL, direct; Future - Thyroid Function [place]; Future - Ambulatory referral to Home Health; Future Essential hypertension Paroxysmal atrial fibrillation (HCC) Diabetes mellitus without complication (HCC) - Hemoglobin A1c; Future - Ambulatory referral to Home Health; Future BCC (basal cell carcinoma), lip - Ambulatory referral to Home Health; Future Other orders - ondansetron ODT (ZOFRAN-ODT) 4 mg disintegrating tablet; Take 1 tablet (4 mg total) by mouth every 8 (eight) hours as needed for nausea or vomiting - ciprofloxacin (CIPRO) 250 mg tablet; Take 1 tablet (250 mg total) by mouth 2 (two) times a day for 5 days TAKE 1 TABLET BY MOUTH TWICE DAILY FOR 5 DAYS AT A TIME FOR RECURRING KIDNEY INFECTIONS - potassium chloride ER (KLOR-CON) 20 mEq CR tablet; Take 1 and 1/2 tablets by mouth daily (30 MEQ)daily. Assessment & Plan Dizziness and Disorientation / Vertigo Suspected vertigo, possibly related to inner ear or sinus issues, with vision affected potentially due to previous cataract surgery and prism lenses. Nausea is present. CT abdomen 02/2024- chronic changes and perinephritic abscess. CT head 02/2024 normal. ECHO 04/2024 70%, grade 1 DD. HR regular on exam, BP stable. Consulted with Dr. Martinez in office today, he agrees with plan. Order CMP, CBC, TSH, A1c today and prescribe ondansetron for nausea. Continue Cipro as rxd and push fluids. Advise hydration and consider cecily products for nausea relief. Keep follows with cardiology and urology as scheduled. Headache Experiencing a dull, throbbing headache on the right side with no acute issues identified. Other than mild horizontal nystagmus, there are nor neurological deficits on exam but patient appears ill. CT head from 02/2024 was unremarkable. Vitals stable. Check CMP, CBC, TSH, A1c today. Continue cipro as directed. Push fluids. Monitor closely and go to ER with any worsening symptoms. Recurrent Urinary Tract Infection (UTI) Recurrent UTIs, currently on antibiotics. Potential surgical intervention discussed by urology but not pursued. Continue current antibiotic regimen and consider another course if symptoms persist or recur. Keep follow with urology next month. 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 General Health Maintenance Taking a potassium supplement, which needs a refill. Emphasized the importance of hydration and nutrition. Refill potassium supplement and ensure adequate hydration and nutrition. Follow-up Requires follow-up for symptoms and ongoing conditions. Discussed in-home care options, but no medical necessity identified. Perform blood tests at the clinic, review lab results, and contact if abnormalities are found. Provide information on in-home care services at the options advisor and schedule follow-up appointments as needed. Return in about 4 months (around 08/11/2025), or if symptoms worsen or fail to improve, for Next scheduled follow up. Melony Oliveros NP documented in this encounter Plan of Treatment Pending Results Name Type Priority Associated Diagnoses Date /Time Hemoglobin A1c Lab Routine Diabetes mellitus without complication (HCC) 04/08/2025 2:13 PM CDT Scheduled Orders Name Type Priority Associated Diagnoses Orde r Schedule Hemoglobin A1c Lab Routine Diabetes mellitus without complication (HCC) Expected: 04/11/2025, Expires: 04/08/2026 Scheduled Referrals Name Type Priority Associated Diagnoses Orde r Schedule Ambulatory referral to Home Health Outpatient Referral Routine Other fatigue Vertigo BCC (basal cell carcinoma), lip Diabetes mellitus without complication (HCC) 1 Occurrences starting 04/08/2025 until 10/09/2025 documented as of this encounter Results * (ABNORMAL) Thyroid Function [place] (04/08/2025 2:13 PM CDT) TSH 4.26(H) 0.30 - 4.20 mcIUnit/mL Comment:Testing performed by : [facility], [address] [place] [address], [facility] Blood 04/08/2025 2:13 PM CDT 04/08/2025 7:30 PM CDT Melony Oliveros NP LAB BLOOD ORDERABLES Final Resul t [facility] [address] [facility] Department [place] [address] * Cholesterol, LDL, direct (04/08/2025 2:13 PM [...] last revised on 2018. Testing performed by: [address] [address] Blood 04/08/2025 2:13 PM CDT 04/08/2025 7:30 PM CDT Melony Oliveros NP LAB BLOOD ORDERABLES Final Resul t [address] Department [place] [address] * (ABNORMAL) CBC with auto differential (04/08/2025 2:13 PM CDT) WBC 11.06(H) 3.80 - 9.90 K/cumm Comment:Testing performed by : [address] [address] Hgb 5.1(C) 11.9 - 15.5 g/dL [facility] Comment: This result has been called to Dr. Yoni Redmond by [id number] on 04/08/2025 20:02:54, and has been read back. Testing performed by: [address] [address] Hct 17.8(L) 35.6 - 45.5 % CERNER Comment:Testing performed by : [address] [address] Plt 504(H) 150 - 400 K/cumm CERNER Comment:Testing performed by : [address] [address] MPV 11.3 9.1 - 12.3 fL CERNER Comment:Testing performed by : [address] [address] RBC 1.82(L) 3.90 - 5.20 M/cumm CERNER Comment:Testing performed by : [address] [address] MCV 97.8(H) 81.3 - 96.4 fL CERNER Comment:Testing performed by : [address], [address] MCH 28.0 27.1 - 33.3 pg CERNER CH Comment:Testing performed by : [facility], [address] [place] [address]., [address] MCHC 28.7(L) 32.3 - 35.7 g/dL CERNER CH Comment:Testing performed by : [facility], [address] [place] [address]., [address] RDW CV 16.7(H) 11.1 - 14.9 % CERNER CH Comment:Testing performed by : [facility], [address] [place] [address]., [address] RDW SD 59.8(H) 35.7 - 48.1 fL CERNER CH Comment:Testing performed by : [address], [address] NRBC abs 0.02(H) 0.00 - 0.01 K/cumm CERNER CH Comment:Testing performed by : [facility], [address] [place] [address], [address] Blood 04/08/2025 2:13 PM CDT 04/08/2025 7:30 PM CDT Melony Oliveros NP LAB BLOOD ORDERABLES Final Resul t [address] Department [place] [address] * (ABNORMAL) Comprehensive metabolic panel (04/08/2025 2:13 PM CDT) Sodium 132(L) 135 - 145 mmol/L Comment:Testing performed by : [facility], [address] [place] [address]., [address] Potassium, pl 5.7(H) 3.3 - 4.9 mmol/L CERNER CH Comment:Testing performed by : [address] [address] Chloride 106 97 - 110 mmol/L CERNER CH Comment:Testing performed by : [address], [address] CO2 13(L) 22 - 32 mmol/L CERNER CH Comment:Testing performed by : [facility], [address], [place]., [address] Anion gap 13 2 - 15 mmol/L CERNER CH Comment:Testing performed by : [facility], [address] [place] [address]., [address] BUN 42(H) 6 - 25 mg/dL CERNER CH Comment:Testing performed by : [facility], [address] [place] [address]., [address] Creatinine 1.37(H) 0.60 - 1.10 mg/dL CERNER CH Comment:Testing performed by : [address], [address] Glucose 124 70 - 199 mg/dL CERNER [...] was last revised 2022. Testing performed by: [facility], [address] [place] [address]., [address] Calcium 10.2 8.5 - 10.3 mg/dL CERNER CH Comment:Testing performed by : [address] [address] Bilirubin, total 0.2 0.1 - 1.2 mg/dL CERNER CH Comment:Testing performed by : [address] [address] Protein, pl 6.1(L) 6.5 - 8.5 g/dL CERNER CH Comment:Testing performed by : [address] [address] Albumin 3.6 3.5 - 5.0 g/dL CERNER CH Comment:Testing performed by : [address], [address] Alk phos 120 40 - 130 Units/L CERNER CH Comment:Testing performed by : [address], [address] ALT 13 7 - 45 Units/L CERNER CH Comment:Testing performed by : [facility], [address] [place] [address]., [address] AST 21 10 - 45 Units/L QUYNH GAVIRIA Comment:Testing performed by : [facility], [address] [place] [address]., [address] Blood 04/08/2025 2:13 PM CDT 04/08/2025 7:30 PM CDT Melony Oliveros NP LAB BLOOD ORDERABLES Final Resul t QUY[facility] [address] Department [place] [address] documented in this encounter Visit Diagnoses Diagnosis Other fatigue- Primary Vertigo Dizziness and giddiness Essential hypertension Unspecified essential hypertension Paroxysmal atrial fibrillation (HCC) Atrial fibrillation Diabetes mellitus without complication (HCC) Type II or unspecified type diabetes mellitus without mention of complication, not stated as uncontrolled BCC (basal cell carcinoma), 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 documented in this encounter Discontinued Medications Medication Sig Discontinue Reason Start Date End Da te triamcinolone (KENALOG) 0.5 % cream Apply topically 2 (two) times a day for 14 days Therapy completed 04/09/2024 04/08/2025 mupirocin (BACTROBAN) 2 % creamIndications:perit cox dialysis catheter care Apply topically 3 (three) times a day Therapy completed 09/07/2024 04/08/2025 ciprofloxacin (CIPRO) 250 mg tablet TAKE 1 TABLET BY MOUTH TWICE DAILY FOR 5 DAYS AT A TIME FOR RECURRING KIDNEY INFECTIONS - ENOUGH FOR 3 TREATMENTS Reorder 01/31/2025 04/08/2025 ciprofloxacin (CIPRO) 250 mg tablet Take 1 tablet (250 mg total) by mouth 2 (two) times a day for 5 days TAKE 1 TABLET BY MOUTH TWICE DAILY FOR 5 DAYS AT A TIME FOR RECURRING KIDNEY INFECTIONS - ENOUGH FOR 3 TREATMENTS Reorder 04/08/2025 04/08/2025 potassium chloride ER (KLOR-CON) 20 mEq CR tablet Take 1 and 1/2 tablets by mouth daily (30 MEQ) daily. Reorder 10/06/2024 04/08/2025 documented as of this encounter Historical Medications * This list may reflect changes made after this encounter. cyanocobalamin (Vitamin B-12) 1,000 mcg sublingual tablet Take 1 tablet (1,000 mcg total) by mouth daily added in this encounter Care Teams Gas Appliance Servicer Relationship Specialty Start Date End Date Osmel Moe MD PCP - General 12/20/16 Gomez Raymond MD Consulting Physician Urology 10/04/21 James Suarez MD Consulting Physician Cardiovascular Disease 10/05/21 Ramo Squires MD Consulting Physician Urology 01/23/22 James Juarez MD Referring Physician Dermatology 03/03/23 documented as of this encounter
--- OUTSIDE RECORDS SUMMARY | 2025-04-08 21:18 | XMS_ITS ---
Author Organization [facility] Address [address] [place] [address] Care Team Providers Care Painter Aircraft Name Role Phone Osmel Moe MD Primary Care Provider [phone] Gomez Raymond MD Unavailable James Suarez MD Unavailable [phone] Ramo Squires MD Unavailable [phone] James Juarez MD Unavailable Active Problems Problem Noted Date Diagnosed Date Other fatigue 04/08/2025 BCC (basal cell carcinoma), lip 07/31/2022 Overview (07/31/2022): Added automatically from request for surgery [id number] Melanocytic nevus of right upper extremity 07/31 Overview (07/31/2022): Added automatically from request for surgery [id number] Atrial fibrillation 11/08/2021 Assessment & Plan (02/07/2025 7:04 PM CDT): Chronic atrial fibrillation patient's Eliquis she continues see laborer/grade check she is doing well. Chest pain no palpitations no evidence of he needs CVA or TIA symptoms Assessment & Plan (06/23/2024 2:24 PM CDT): Chronic problems stable patient remains on 15 mg daily Assessment & Plan (03/10/2024 8:20 AM CDT): This is chronic stable. Please continue Xarelto. Monitor vital signs for RVR. Assessment & Plan (11/28/2022 6:04 PM FACULTY SUPPORT COORDINATOR): Patient's atrial fibrillation she applied for life insurance she was declined because of atrial fibrillation and protein in the urine. She want to make sure everything was being done regarding her problems. I explained to her atrial fibrillation importance of controlling rate as well as anticoagulation therapy. Patient is here with her daughter understood information given. Assessment & Plan (11/08/2021 1:35 PM FACULTY SUPPORT COORDINATOR): Patient is seen by laborer/grade check last 30 days she remains on Eliquis at this time fibrillation new onset less than 90 days ago. Patient is tolerating the Eliquis today of her pulses excellent. See her back in the next 4 months. Will continue Eliquis at this time Vertigo 10/01/2021 Assessment & Plan (10/01/2021 10:34 AM FACULTY SUPPORT COORDINATOR): Dizziness for last 2-3 days patient has [...] 09/20/2020 Assessment & Plan (09/20/2020 3:49 PM FACULTY SUPPORT COORDINATOR): Patient developed pain right shoulder after breast [...] own Assessment & Plan (08/07/2023 2:11 PM FACULTY SUPPORT COORDINATOR): No complaints of joint pains whatsoever at [...] day helps.. Recommend patient go to a [facility] physical therapy see if stretching exercise may help her leg and possibly a shoulders. Assessment & Plan (09/19/2020 4:08 PM FACULTY SUPPORT COORDINATOR): Patient having joint pains multiple sites and yesterday was a neck and shoulders today's are time sometimes is a her legs.. His problems getting up and down out of chairs once she has completed a process she is a back to baseline with little to no pain. This started several months ago.. At this time as this patient on the whole [facility] it could be aggravating the problem but [...] polydipsia. Assessment & Plan (08/10/2024 3:07 PM FACULTY SUPPORT COORDINATOR): Patient advised me she had an eye exam 1 week ago no diabetic eye disease found medical records report pending. Diabetes very well controlled hemoglobin HgbA1c less than 7 for the past 4 years. Current HgbA1c is results pending Assessment & Plan (08/07/2023 2:12 PM FACULTY SUPPORT COORDINATOR): Diabetes has been stable no HgbA1c today. [...] (H) Assessment & Plan (10/02/2021 9:48 AM FACULTY SUPPORT COORDINATOR): Diet controlled, monitor glucose while inpatient and [...] 05/27 Assessment & Plan (08/10/2024 3:08 PM FACULTY SUPPORT COORDINATOR): History and physical completed patient's health risk assessment health maintenance reviewed and addressed. Her last annual exam with me this patient has been admitted to hospital for urinary tract obstruction kidney stone perinephric abscess. Of which she has recovered from. Patient is doing well she is 84 years old she has absolutely no dementia. Assessment & Plan (08/07/2023 2:07 PM FACULTY SUPPORT COORDINATOR): History and physical completed patient's health risk [...] shot was 2 weeks ago at local [facility]. Order for bone density is been [...] hours. Assessment & Plan (11/05/2018 6:23 PM FACULTY SUPPORT COORDINATOR): Patient describes a neuropathy of sensation of [...] well. Assessment & Plan (08/10/2024 2:59 PM FACULTY SUPPORT COORDINATOR): Blood pressure 134/36 patient feels well.. Gap [...] 300 mg per day down to 100. Neopit some improvement but still feels fatigued worn [...] osteoarthritis Assessment & Plan (08/07/2023 2:10 PM FACULTY SUPPORT COORDINATOR): Blood pressure is excellent no change in therapy Assessment & Plan (03/15/2023 2:46 PM CDT): Hypertension remains well controlled patient tolerating medications no change in therapy Assessment & Plan (11/28/2022 6:03 PM FACULTY SUPPORT COORDINATOR): Blood pressure well controlled. Patient's concern regarding [...] therapy Assessment & Plan (11/08/2021 1:33 PM FACULTY SUPPORT COORDINATOR): Blood pressures from home reviewed there are acceptable. Patient's blood pressure today is wide range between systolic and diastolic without any precise reason. Patient's echocardiogram was reviewed there was no significant valvular disease in ejection pressure was 70-75% no change in therapy. Assessment & Plan (10/08/2021 2:13 PM FACULTY SUPPORT COORDINATOR): Blood pressure well reviewed patient now on new medication hydralazine and amlodipine again he has a follow-up appointment cardiology in the next 24 hours. No changes made in medications today Assessment & Plan (10/02/2021 9:48 AM FACULTY SUPPORT COORDINATOR): Blood pressure has been severely elevated since [...] therapy. Assessment & Plan (09/19/2020 4:09 PM FACULTY SUPPORT COORDINATOR): Blood pressure is slightly elevated today no [...] appointment. Assessment & Plan (11/05/2018 6:25 PM FACULTY SUPPORT COORDINATOR): Hypertension elevated today will continue reserves check [...] profile. 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 Perinephric abscess 03/10/2024 04/08/20 25 Assessment & Plan (08/10/2024 2:56 PM FACULTY SUPPORT COORDINATOR): Patient advised me abscesses resolved through Wound [...] 03/15/2023 Assessment & Plan (11/28/2022 6:06 PM FACULTY SUPPORT COORDINATOR): Advised patient use lactate when using milk products. For information from up-to-date today regarding high-fiber diet. Not having any blood in his stool or mucus in his stools. She is not having overt diarrhea. Kidney stones 12/12/2021 03/15/2024 Overview (12/12/2021): Added automatically from request for surgery [id number] Gross hematuria 12/12/2021 03/30/2024 Overview (12/12/2021): Added automatically from request for surgery [id number] Assessment & Plan (03/22/2024 10:30 AM CDT): [...] procedure Assessment & Plan (10/08/2021 1:43 PM FACULTY SUPPORT COORDINATOR): Hospital follow-up admission date 10/02/2021 discharge date 10/05/2021.. Diagnosis acute cystitis with hematuria. 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 Patient has been given referral to [facility] urologist a few weeks. Patient's blood [...] 022 Assessment & Plan (10/02/2021 9:49 AM FACULTY SUPPORT COORDINATOR): Seen on CT on presentation. Does not seem to be hemodynamically significant. Echocardiogram ordered and Cardiology consulted. Right renal mass 10/02/2021 04/01/2024 Assessment & Plan (10/08/2021 2:12 PM FACULTY SUPPORT COORDINATOR): Referral to urologist sent by this office. Assessment & Plan (10/02/2021 9:47 AM FACULTY SUPPORT COORDINATOR): Seen on CT on presentation. CT urogram ordered per radiology recs. Urology consulted. Nausea and vomiting in adult 10/01/2021 03/15/2023 Assessment & Plan (10/08/2021 1:45 PM FACULTY SUPPORT COORDINATOR): Nausea vomiting resolved once UTI was treated Assessment & Plan (10/01/2021 10:33 AM FACULTY SUPPORT COORDINATOR): Nausea and vomiting started around September 09 is gotten progressively worse. Patient cannot hold down solids. Denies any blood in his stools or vomiting blood. No vomiting or bowel. No abdominal pain. Patient's unstable in appearance her typical self referred to emergency room for hospital admission EGD lab workup dehydration etc.. Acute cystitis with hematuria 10/01/2021 02/28/2022 Assessment & Plan (10/08/2021 1:44 PM FACULTY SUPPORT COORDINATOR): Patient's referral with Urology cystoscopy is scheduled heart to be done. 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 Discovered on recent hospitalization Assessment & Plan (10/02/2021 9:52 AM FACULTY SUPPORT COORDINATOR): UA on presentation showed pyuria with 4+ leuk esterase and 3+ bacteria present. Patient's lethargy and decreased appetite are likely symptoms infection, though it seems unlikely to explain the nausea, vomiting, and diarrhea that were present for approximately the past 2 weeks in resolved 3 days ago. A COVID-19 test at [facility] pharmacy in [place] was reportedly negative, but the symptoms are [...] 04/24/2021 Assessment & Plan (08/21/2020 3:48 PM FACULTY SUPPORT COORDINATOR): Patient having pain 3 4 days a [...] syndrome on left 01/07/2018 12/02/2019 Overview (01/07/2018): [id number]-[id number] discomfort no surgical intervention needed if problems [...] date. Assessment & Plan (11/05/2018 6:25 PM FACULTY SUPPORT COORDINATOR): Data hemoglobin HgbA1c today patient is having [...]
--- OUTSIDE RECORDS SUMMARY | 2025-04-08 21:18 | XMS_ITS | Encounter Summary ---
Author Organization [facility] Address [address] [place] [address] Care Team Providers Care Personal Computer Network Analyst Name Role Phone Osmel Moe MD Primary Care Provider [phone] Gomez Raymond MD Unavailable [phone] James Suarez MD Unavailable [phone] Ramo Squires MD Unavailable [phone] James Juarez MD Unavailable [phone] Encounter Details Date Type Department Care Team (Late st Contact Info) Description 04/08/2025 Telephone [facility] [address] [place] [address] [phone] Yoni Redmond MD [address] [place] [address] Social History Tobacco Use Types Packs/Day Years Used Date Smoking Tobacco: Never Passive Smoke Exposure: Past Smokeless Tobacco: Never Alcohol Use Standard Drinks/Week Comments Yes 0 (1 standard drink = 0.6 oz pur e alcohol) [facility] Utilities Answer Date Recorded In the past 12 months has [employer], gas, oil, or water company threatened to [...] often do you attend chur ch or nondenominational services? 1 to 4 times per year 04/08/2024 Do you belong to any clubs o r organizations such as yazidism groups, unions, fraternal or athletic groups, or [...] place to sleep or slept in a detention (including now)? No 10/16/2021 Housing Stability Vital Sign Answer Kole e Recorded In the last 12 months, was t here a time when you were not able to pay the mortgage or rent on time? No 04/08/2024 In the past 12 months, how m any times have you moved where you were living? 1 04/08/2024 At any time in the past 12 m [facility], were you homeless or living in a detention (including now)? No 04/08/2024 Personal Safety Answer Date Recorded Have you ever been in or are you currently in a harmful physical or emotional relationship or is someone making you feel afraid or unsafe? Patient unable to answer 02/28/2024 Comments No Sex and Gender Information Value Date Recorded Sex Assigned at Not on file Legal Sex Female 3:07 PM VOLUM[employer] Gender Identity Not on file Sexual Orientation Not on file Occupation Industry Job Start Date Job End Date Retired Not on file Not on file Not on file documented as of this encounter Miscellaneous Notes * Telephone Encounter - Yoni Redmond MD - 04/08/2025 8:19 PM CDT Spoke to Elliott Hi, patient's daughter about critical CBC. Lab Results Component Value Date WBC 11.06 (H) 04/08/2025 HGB 5.1 (Critical) 04/08/2025 HCT 17.8 (L) 04/08/2025 MCV 97.8 (H) 04/08/2025 LABPLAT 504 (H) 04/08/2025 Patient was seen by nurse practitioner earlier today and seemed disoriented, complained of blurry vision and words jumping jumping around the page when trying to read. Also has dizziness and headache. Advised Elliott to take her mother to the nearest emergency room which is [facility]. Dr. Moe informed of lab results. documented in this encounter Plan of Treatment Not on file documented as of this encounter Visit Diagnoses Not on filedocumented in this encounter Care Teams Personal Computer Network Analyst Relationship Specialty Start Date End Date Osmel Moe MD PCP - General 12/20/16 Gomez Raymond MD Consulting Physician Urology 10/04/21 James Suarez MD Consulting Physician Cardiovascular Disease 10/05/21 Ramo Squires MD Consulting Physician Urology 01/23/22 James Juarez MD Referring Physician Dermatology 03/03/23 documented as of this encounter
--- OUTSIDE RECORDS SUMMARY | 2025-04-08 21:19 | XMS_ITS | Clinical Summary ---
Author Organization [facility] Address [address] [place] [address] Care Team Providers Care Occupational Therapist Rehab Manager Name Role Phone Osmel Moe MD Primary Care Provider [phone] Gomez Raymond MD Unavailable James Suarez MD Unavailable [phone] Ramo Squires MD Unavailable James Juarez [...] (07/31/2022): Added automatically from request for surgery [id number] Melanocytic nevus of right upper extremity 07/31 Overview (07/31/2022): Added automatically from request for surgery [id number] Atrial fibrillation 11/08/2021 Assessment & Plan (02/07/2025 7:04 PM CDT): Chronic atrial fibrillation patient's Eliquis she continues see client development director she is doing well. Chest pain no palpitations no evidence of he needs CVA or TIA symptoms Assessment & Plan (06/23/2024 2:24 PM CDT): Chronic problems stable patient remains on 15 mg daily Assessment & Plan (03/10/2024 8:20 AM CDT): This is chronic stable. Please continue Xarelto. Monitor vital signs for RVR. Assessment & Plan (11/28/2022 6:04 PM FUR SORTER): Patient's atrial fibrillation she applied for life insurance she was declined because of atrial fibrillation and protein in the urine. She want to make sure everything was being done regarding her problems. I explained to her atrial fibrillation importance of controlling rate as well as anticoagulation therapy. Patient is here with her daughter understood information given. Assessment & Plan (11/08/2021 1:35 PM FUR SORTER): Patient is seen by client development director last 30 days she remains on Eliquis at this time fibrillation new onset less than 90 days ago. Patient is tolerating the Eliquis today of her pulses excellent. See her back in the next 4 months. Will continue Eliquis at this time Vertigo 10/01/2021 Assessment & Plan (10/01/2021 10:34 AM FUR SORTER): Dizziness for last 2-3 days patient has [...] 09/20/2020 Assessment & Plan (09/20/2020 3:49 PM FUR SORTER): Patient developed pain right shoulder after breast [...] own Assessment & Plan (08/07/2023 2:11 PM FUR SORTER): No complaints of joint pains whatsoever at [...] day helps.. Recommend patient go to a [facility] physical therapy see if stretching exercise may help her leg and possibly a shoulders. Assessment & Plan (09/19/2020 4:08 PM FUR SORTER): Patient having joint pains multiple sites and yesterday was a neck and shoulders today's are time sometimes is a her legs.. His problems getting up and down out of chairs once she has completed a process she is a back to baseline with little to no pain. This started several months ago.. At this time as this [facility] could be aggravating the problem but [...] polydipsia. Assessment & Plan (08/10/2024 3:07 PM FUR SORTER): Patient advised me she had an eye exam 1 week ago no diabetic eye disease found medical records report pending. Diabetes very well controlled hemoglobin HgbA1c less than 7 for the past 4 years. Current HgbA1c is results pending Assessment & Plan (08/07/2023 2:12 PM FUR SORTER): Diabetes has been stable no HgbA1c today. [...] (H) Assessment & Plan (10/02/2021 9:48 AM FUR SORTER): Diet controlled, monitor glucose while inpatient and [...] 05/27 Assessment & Plan (08/10/2024 3:08 PM FUR SORTER): History and physical completed patient's health risk assessment health maintenance reviewed and addressed. Her last annual exam with me this patient has been admitted to hospital for urinary tract obstruction kidney stone perinephric abscess. Of which she has recovered from. Patient is doing well she is 84 years old she has absolutely no dementia. Assessment & Plan (08/07/2023 2:07 PM FUR SORTER): History and physical completed patient's health risk [...] [facility] Order for bone density is been placed. [...] hours. Assessment & Plan (11/05/2018 6:23 PM FUR SORTER): Patient describes a neuropathy of sensation of [...] well. Assessment & Plan (08/10/2024 2:59 PM FUR SORTER): Blood pressure 134/36 patient feels well.. Gap [...] 300 mg per day down to 100. [place] some improvement but still feels fatigued worn [...] osteoarthritis Assessment & Plan (08/07/2023 2:10 PM FUR SORTER): Blood pressure is excellent no change in therapy Assessment & Plan (03/15/2023 2:46 PM CDT): Hypertension remains well controlled patient tolerating medications no change in therapy Assessment & Plan (11/28/2022 6:03 PM FUR SORTER): Blood pressure well controlled. Patient's concern regarding [...] therapy Assessment & Plan (11/08/2021 1:33 PM FUR SORTER): Blood pressures from home reviewed there are acceptable. Patient's blood pressure today is wide range between systolic and diastolic without any precise reason. Patient's echocardiogram was reviewed there was no significant valvular disease in ejection pressure was 70-75% no change in therapy. Assessment & Plan (10/08/2021 2:13 PM FUR SORTER): Blood pressure well reviewed patient now on new medication hydralazine and amlodipine again he has a follow-up appointment cardiology in the next 24 hours. No changes made in medications today Assessment & Plan (10/02/2021 9:48 AM FUR SORTER): Blood pressure has been severely elevated since [...] therapy. Assessment & Plan (09/19/2020 4:09 PM FUR SORTER): Blood pressure is slightly elevated today no [...] appointment. Assessment & Plan (11/05/2018 6:25 PM FUR SORTER): Hypertension elevated today will continue reserves check [...] profile. 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 For information from up-to-date today regarding high-fiber diet. Not having any blood in his stool or mucus in his stools. She is not having overt diarrhea. Kidney stones 12/12/2021 03/15/2024 Overview (12/12/2021): Added automatically from request for surgery [id number] Gross hematuria 12/12/2021 03/30/2024 Overview (12/12/2021): Added automatically from request for surgery [id number] Assessment & Plan (03/22/2024 10:30 AM CDT): [...] procedure Assessment & Plan (10/08/2021 1:43 PM FUR SORTER): Hospital follow-up admission date 10/02/2021 discharge date 10/05/2021.. Diagnosis acute cystitis with hematuria. 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 Patient has been given referral to [facility] urologist a few weeks. Patient's blood [...] 022 Assessment & Plan (10/02/2021 9:49 AM FUR SORTER): Seen on CT on presentation. Does not seem to be hemodynamically significant. Echocardiogram ordered and Cardiology consulted. Right renal mass 10/02/2021 04/01/2024 Assessment & Plan (10/08/2021 2:12 PM FUR SORTER): Referral to urologist sent by this office. Assessment & Plan (10/02/2021 9:47 AM FUR SORTER): Seen on CT on presentation. CT urogram ordered per radiology recs. Urology consulted. Nausea and vomiting in adult 10/01/2021 03/15/2023 Assessment & Plan (10/08/2021 1:45 PM FUR SORTER): Nausea vomiting resolved once UTI was treated Assessment & Plan (10/01/2021 10:33 AM FUR SORTER): Nausea and vomiting started around September 09 is gotten progressively worse. Patient cannot hold down solids. Denies any blood in his stools or vomiting blood. No vomiting or bowel. No abdominal pain. Patient's unstable in appearance her typical self referred to emergency room for hospital admission EGD lab workup dehydration etc.. Acute cystitis with hematuria 10/01/2021 02/28/2022 Assessment & Plan (10/08/2021 1:44 PM FUR SORTER): Patient's referral with Urology cystoscopy is scheduled heart to be done. 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 Discovered on recent hospitalization Assessment & Plan (10/02/2021 9:52 AM FUR SORTER): UA on presentation showed pyuria with 4+ leuk esterase and 3+ bacteria present. Patient's lethargy and decreased appetite are likely symptoms infection, though it seems unlikely to explain the nausea, vomiting, and diarrhea that were present for approximately the past 2 weeks in resolved 3 days ago. A COVID-19 test at [facility] pharmacy in [place] was reportedly negative, but the symptoms are [...] 04/24/2021 Assessment & Plan (08/21/2020 3:48 PM FUR SORTER): Patient having pain 3 4 days a [...] syndrome on left 01/07/2018 12/02/2019 Overview (01/07/2018): Nvwq-[id number]-[id number] discomfort no surgical intervention needed if problems [...] date. Assessment & Plan (11/05/2018 6:25 PM FUR SORTER): Data hemoglobin HgbA1c today patient is having [...] to diabetes. Elevated troponin 01/08/2024 Hypokalemia 10/08/2021 Encounters Date Type Department Care Team Description 04/08/2025 2:20 PM CDT Lab [facility] [address] [place] [address] Fatigue, unspecified type; Vertigo; Diabetes mellitus without complication (HCC) 04/08/2025 1:00 PM CDT Office Visit [facility] [address] [place] [address] Melony Oliveros NP Other fatigue (Primary Dx); Vertigo; Essential hypertension; Paroxysmal atrial fibrillation (HCC); Diabetes mellitus without complication (HCC); BCC (basal cell carcinoma), lip 04/08/2025 Telephone [facility] [address] [place] [phone] Yoni Redomnd MD 04/07/2025 Telephone [facility] [address] [place] [address] Osmel Moe MD [facility] 03/08/2025 Telephone [facility] [address] [facility] [address] [place] [phone] Tanya Alanis RN 02/07/2025 1:00 PM CDT Office Visit [facility] [address] [facility] [address] [place] [phone] Osmel Moe MD Diabetes mellitus without complication (HCC) (Primary Dx); Chronic atrial fibrillation (HCC); Osteoarthritis involving multiple joints on both sides of body 02/01/2025 Orders Only [facility] [address] [place] [id number] Osmel Moe MD from Last 3 Months Immunizations Immunization Administration Dates Next Due Influenza, [...] drink = 0.6 oz pur e alcohol) Wrikeities Answer Date Recorded In the past 12 months has [employer], oil, or water [employer] threatened to shut off services in your [...] week 04/08/2024 How often do you attend [facility] or roman catholic services? 1 to 4 times per year 04/08/2024 Do you belong to any clubs o r organizations such as mu-ism groups, unions, fraternal or athletic groups, or [...] place to sleep or slept in a fdc (including now)? No 10/16/2021 Housing Stability Vital Sign Answer Kole e Recorded In the last 12 months, was t here a time when you were not able to pay the mortgage or rent on time? No 04/08/2024 In the past 12 months, how m any times have you moved where you were living? 1 04/08/2024 At any time in the past [address] [facility], were you homeless or living in a fdc (including now)? No 04/08/2024 Personal Safety Answer Date Recorded Have you ever been in or are you currently in a harmful physical or emotional relationship or is someone making you feel afraid or unsafe? Patient unable to answer 02/28/2024 Comments No Sex and Gender Information Value Date Recorded Sex Assigned at Not on file Legal Sex Female 3:07 PM FUR SORTER Gender Identity Not on file Sexual Orientation Not on file Occupation Industry Job Start Date Job End Date Retired Not on file Not on file Not on file Obstetrics History Para Term AB IAB SAB Ectopic Multiple Livin g Live Births 3 2 2 0 1 2 Date Outcome GA Total Labor Labor/2nd/3rd Weight Sex Type Anes PTL Belkis A1 A5 Name Clin Term Term AB Last Filed Vital Signs Vital Sign Reading [...] 04/08/2025 1:16 PM CDT Plan of Treatment Health Maintenance Due Date Last Done Comments Foot Exam 08/07/2024 08/07/2023, 0811/2020, 06/20/2020 Covid-19 Vaccine ( season) 2025 07/21/2024, 12/26/2023, 07/03/2023, Additional history exists Hemoglobin A1C 02/07/2025 08/10/2024, 02/21, 05/30/2022, Additional history exists Influenza Vaccine (#1) 2025 4, 07/03/2023, 06/30/2022, Additional history exists Depression Screening 08/10/2025 08/10/2024, 08/07/2023, 05/30/2022, Additional history exists Fall Risk Assessment 08/10/2025 08/10/2024, 08/07/2023, 05/30/2022, Additional history exists Lipid Panel 08/10/2025 08/10/2024, 04/2022, 12/19/2020, Additional history exists Well Visit 65+ 08/10/2025 08/10/2024, 07/23, 05/30/2022, Additional history exists Dilated Eye Exam 08/16/2025 08/16/2024 Osteoporosis Screening-Bone Density Scan 10/05/2026 10/05/2024, 06/23/2020 DTaP/Tdap/Td Vaccine (2 - Td or Tdap) 01/28/2029 01/28/2019 Pneumococcal vaccine 65+ Completed 07/14/2018, 06/23 Zoster Vaccine Completed 09/30/2019, 05/2020, 06/29/2019 Albumin Creatinine Ratio, Urine Discontinued 4, 07/14/2018 eGFR Discontinued 04/08/2025, 02/21, 03/15/2024, Additional history exists Hepatitis B Screening Discontinued Procedures Procedure Name Priority Date/Time Associated Diagnosis [...] Read Routine (OP Routine) 10/05/2024 11:46 AM FUR SORTER Menopause HM DIABETES EYE EXAM Routine 08/16/2024 1:31 PM FUR SORTER HEMOGLOBIN A1C Routine 08/10/2024 11:33 AM FUR SORTER Medicare annual wellness visit, subsequent Diabetes mellitus without complication (HCC) LIPID PANEL Routine 08/10/2024 11:33 AM FUR SORTER Medicare annual wellness visit, subsequent Mixed hyperlipidemia ALBUMIN CREATININE RATIO, URINE Routine 08/10/2024 11:33 AM FUR SORTER Medicare annual wellness visit, subsequent Diabetes mellitus [...] was last reviewed 2021. Testing performed by: [address] [address] Blood 04/08/2025 2:13 PM CDT 04/08/2025 7:37 PM CDT Melony Oliveros NP LAB BLOOD ORDERABLES Final Resul t [address] Department [place] [address] * (ABNORMAL) Differential, auto (04/08/2025 2:13 PM CDT) Neutrophil abs 8.27(H) 1.50 - 6.50 K/cumm Comment:Testing performed by : [address] [address] Imm gran abs 0.05 0.00 - 0.10 K/cumm [facility] Comment:Testing performed by : [address] [address] Lymphocyte abs 1.75 0.80 - 3.30 K/cumm [facility] Comment:Testing performed by : [address] [address] Monocyte abs 0.86(H) 0.20 - 0.80 K/cumm [facility] Comment:Testing performed by : [address] [address] Eosinophil abs 0.07 0.00 - 0.50 K/cumm [facility] Comment:Testing performed by : [address] [address] Basophil abs 0.06 0.00 - 0.10 K/cumm [facility] Comment:Testing performed by : [address] [address] Neutrophil pct 74.8 % [facility] Comment: Interpretive Data Percent cell count reference ranges are not reported, since discordance with absolute values may lead to misinterpretation of CBC data. Current Interpretive Data was last revised on 2017. Testing performed by: [facility], [address] [place] [address]., [address] Imm gran pct 0.5 % CERNER Comment: Interpretive Data Percent cell count reference ranges are not reported, since discordance with absolute values may lead to misinterpretation of CBC data. Current Interpretive Data was last revised on 2017. Testing performed by: [facility], [address] [place] [address]., [address] Lymphocyte pct 15.8 % CERNER Comment: Interpretive Data Percent cell count reference ranges are not reported, since discordance with absolute values may lead to misinterpretation of CBC data. Current Interpretive Data was last revised on 2017. Testing performed by: [address] [address] Monocyte pct 7.8 % CERNER Comment: Interpretive Data Percent cell count reference ranges are not reported, since discordance with absolute values may lead to misinterpretation of CBC data. Current Interpretive Data was last revised on 2017. Testing performed by: [facility], [address] [place] [address]., [address] Eosinophil pct 0.6 % CERNER Comment: Interpretive Data Percent cell count reference ranges are not reported, since discordance with absolute values may lead to misinterpretation of CBC data. Current Interpretive Data was last revised on 2017. Testing performed by: [address] [address] Basophil pct 0.5 % CERNER Comment: Interpretive Data Percent cell count reference ranges are not reported, since discordance with absolute values may lead to misinterpretation of CBC data. Current Interpretive Data was last revised on 2017. Testing performed by: [address] [address] Blood 04/08/2025 2:13 PM CDT 04/08/2025 7:30 PM CDT us Melony Oliveros NP LAB BLOOD ORDERABLES Final Resul t [facility] [address] Department [place] [address] * (ABNORMAL) Thyroid Function Warren (04/08/2025 2:13 PM CDT) Pathologist [facility] TSH 4.26(H) 0.30 - 4.20 mcIUnit/mL Comment:Testing performed by : [address], [address] Blood 04/08/2025 2:13 PM CDT 04/08/2025 7:30 PM CDT Melony Oliveros TRAY DELIVERY AIDE LAB BLOOD ORDERABLES Final Resul t [address] Department [place] [address] * (ABNORMAL) CBC with auto differential (04/08/2025 2:13 PM CDT) Pathologist [facility] WBC 11.06(H) 3.80 - 9.90 K/cumm Comment:Testing performed by : [address], [address] Hgb 5.1(C) 11.9 - 15.5 g/dL CERNER Comment: This result has been called to Dr. Yoni Redmond by [id number] on 04/08/2025 20:02:54, and has been read back. Testing performed by: [address] [address] Hct 17.8(L) 35.6 - 45.5 % CERNER Comment:Testing performed by : [address], [address] Plt 504(H) 150 - 400 K/cumm C[facility] Comment:Testing performed by : [address], [address] MPV 11.3 9.1 - 12.3 fL C[facility]ER CH Comment:Testing performed by : [address], [address] RBC 1.82(L) 3.90 - 5.20 M/cumm [facility] CH Comment:Testing performed by : [address], [address] MCV 97.8(H) 81.3 - 96.4 fL [facility] Comment:Testing performed by : [facility], [address] [place] [address], [address] MCH 28.0 27.1 - 33.3 pg CERYEE Comment:Testing performed by : [facility], [address] [place] [address], [address] MCHC 28.7(L) 32.3 - 35.7 g/dL [facility] CH Comment:Testing performed by : [facility], [address] [place] [address], [address] RDW CV 16.7(H) 11.1 - 14.9 % [facility] CH Comment:Testing performed by : [facility], [address] [place] [address], [address] RDW SD 59.8(H) 35.7 - 48.1 fL [facility] Comment:Testing performed by : [facility], [address] [place] [address], [address] NRBC abs 0.02(H) 0.00 - 0.01 K/cumm [facility] Comment:Testing performed by : [facility], [address] [place] [address], [address] Blood 04/08/2025 2:13 PM CDT 04/08/2025 7:30 PM CDT Melony Oliveros TRAY DELIVERY AIDE LAB BLOOD ORDERABLES Final Resul t Performing Organization Address [facility] Co de Phone Number [facility] EVERETTE [address] [address] * T4, free (04/08/2025 2:13 PM CDT) Free T4 1.30 0.90 - 1.70 ng/dL Comment:Testing performed by : [address] [address] Blood 04/08/2025 2:13 PM CDT 04/08/2025 7:37 PM CDT Melony Oliveros TRAY DELIVERY AIDE LAB BLOOD ORDERABLES Final Resul t Performing Organization Address City/[facility]/ZIP Co de Phone Number [facility] GAVIRIA [address] [place] [address] Department [place] [address] * Cholesterol, LDL, direct (04/08/2025 2:13 PM CDT) Pathologist [facility] LDL Cholesterol, Direct 123 <=129 mg/dL Comment: [...] last revised on 2018. Testing performed by: [address] [address] Blood 04/08/2025 2:13 PM CDT 04/08/2025 7:30 PM CDT Melony Oliveros NP LAB BLOOD ORDERABLES Final Resul t [address] Department [place] [address] * (ABNORMAL) Comprehensive metabolic panel (04/08/2025 2:13 PM CDT) [facility] Sodium 132(L) 135 - 145 mmol/L Comment:Testing performed by : [address] [address] Potassium, pl 5.7(H) 3.3 - 4.9 mmol/L CERNER Comment:Testing performed by : [address] [address] Chloride 106 97 - 110 mmol/L CERNER CH Comment:Testing performed by : [address] [address] CO2 13(L) 22 - 32 mmol/L CERNER CH Comment:Testing performed by : [address] [address] Anion gap 13 2 - 15 mmol/L CERNER CH Comment:Testing performed by : [address] [address] BUN 42(H) 6 - 25 mg/dL CERNER CH Comment:Testing performed by : [address] [address] Creatinine 1.37(H) 0.60 - 1.10 mg/dL CERNER CH Comment:Testing performed by : [address], [address] Glucose 124 70 - 199 mg/dL CERNER [...] was last revised 2022. Testing performed by: [address] [address] Calcium 10.2 8.5 - 10.3 mg/dL CERNER CH Comment:Testing performed by : [address] [address] Bilirubin, total 0.2 0.1 - 1.2 mg/dL CERN[facility] CH Comment:Testing performed by : [address] [address] Protein, pl 6.1(L) 6.5 - 8.5 g/dL C[facility] CH Comment:Testing performed by : [address] [address] Albumin 3.6 3.5 - 5.0 g/dL CERNER CH Comment:Testing performed by : [address] [address] Alk phos 120 40 - 130 Units/L CERNER CH Comment:Testing performed by : [address], [address] ALT 13 7 - 45 Units/L CERNER CH Comment:Testing performed by : [address], [place]., [address] AST 21 10 - 45 Units/L [facility] EVERETTE Comment:Testing performed by : [facility], [address] [place] [address]., [address] Blood 04/08/2025 2:13 PM CDT 04/08/2025 7:30 PM CDT Melony Oliveros NP LAB BLOOD ORDERABLES Final Resul t [facility] [address] [facility] Department [place] [address] * SCAN - RADIOLOGY/IMAGING (02/01/2025) Anatomical Region Laterality Modality Other us Osmel Moe MD Final Resu lt * Dexa Axial Skeleton Bone Density 1 or 2 Site (10/05/2024 11:46 AM FUR SORTER) Anatomical Region Laterality Modality Body N/A Other 10/05/2024 8:41 PM FUR SORTER Narrative 10/05/2024 8:42 PM FUR SORTER EXAM DESCRIPTION: DEXA AXIAL SKELETON BONE DENSITY 1 OR MORE SITES REASON FOR STUDY: 84 y/o year old F with given history of: menopause Osteoporosis screening 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 MF: ROSA Report ID: [id number] Reading Location: [id number] Osmel Moe MD IMG DXA PROCEDURES Final R esult * DIABETES EYE EXAM (08/16/2024 1:31 PM FUR SORTER) SCRIBED DIABETIC DILATED EYE EXAM Normal Historical Provider HEALTH MAINTENANCE Final Result * (ABNORMAL) Albumin Creatinine Ratio, Urine (08/10/2024 11:33 AM FUR SORTER) Albumin Ur 91.5 mg/L Comment: Interpretive Data No reference range established. Current interpretive data was last revised 2019. Testing performed by: [address] [address] Creatinine Ur 89.8 mg/dL [facility] Comment: Interpretive Data No reference range established. Current interpretive data was last revised 2019. Testing performed by: [facility], [address] [place] [address]., [address] Albumin Creatinine Ratio, Ur 102(H) 1 - 29 mg/g [facility] Comment:Testing performed by : [address] [address] Urine 08/10/2024 11:3 3 AM FUR SORTER 08/10/2024 5:40 PM FUR SORTER Osmel Moe MD LAB URINE ORDERABLES Final Result [address] [place] [address] * (ABNORMAL) Hemoglobin A1c (08/10/2024 11:33 AM FUR SORTER) Hgb A1C 5.7(H) 4.0 - 5.6 % Comment:Testing performed by : [address] [address] Estimated Average Glucose 117 mg/dL [facility] Comment: The ADA recommends reporting an estimated Average Glucose (eAG) with all Hemoglobin A1c results using the equation derived from a study of 507 normal and diabetic adults. Minority populations were underrepresented and children were not included. (Diabetes Care 31:9225-5958, 2008). The eAG is not equivalent to a fasting glucose. Testing performed by: [address] [address] Blood 08/10/2024 11:3 3 AM FUR SORTER 08/10/2024 5:40 PM FUR SORTER us Osmel Moe MD LAB BLOOD ORDERABLES Final Result [facility] [id number] [facility] [place] [address] * Lipid panel (08/10/2024 11:33 AM FUR SORTER) Cholesterol 192 30 - 199 mg/dL Comment: [...] last revised on 2018. Testing performed by: [address] [address] Triglycerides 105 <=149 mg/dL [facility] Comment: Interpretive [...] last revised on 2018. Testing performed by: [address] [address] HDL 46 >=40 mg/dL [facility] Comment: Interpretive Data Ages < [...] last revised on 2018. Testing performed by: [facility], [address] [place] [address]., [address] LDL, calculated 127 <=129 mg/dL [facility] Comment: Interpretive Data Ages < or = 19 years Acceptable: <110 mg/dL Borderline high: 110-129 mg/dL High: >or= 130 mg/dL Ages > or = 20 years Optimal: <100 mg/dL Near optimal: 100-129 mg/dL Borderline high: 130-159 mg/dL High: >160 mg/dL Calculated using the Evan LDL-C estimating equation. This equation was implemented [...] last revised on 2024. Testing performed by: [address] [address] Non-HDL Cholesterol 146 mg/dL [facility] Comment: Interpretive Data Ages < [...] last revised on 2018. Testing performed by: [facility], [address] [place] [address]., [address] Chol/HDL ratio 4 [facility] GAVIRIA Comment:Testing performed by : [facility], [address] [facility], [place]., [address] Blood 08/10/2024 11:3 3 AM FUR SORTER 08/10/2024 5:40 PM FUR SORTER Osmel Moe MD LAB BLOOD ORDERABLES Final Result [facility] [id number] [facility] [place] [address] from Last 3 Months or Most Recently Relevant to Health Maintenance Insurance [employer] CHO[employer] MEDICARE PPO MEDICARE [facility] HU[employer] CHOICE MEDICARE PPO [employer] CHOICE MEDICARE PPO [employer] MEDICARE PPO Advance Directives For more information, please contact: [phone] * Full Code (Latest Code Status on File) Date Activated Date Inactivated Comments 10/02/2021 12:09 AM 10/05/2021 8:30 PM Care Teams Occupational Therapist Rehab Manager Relationship Specialty Start Date End Date Osmel Moe MD PCP - General 12/20/16 Gomez Raymond MD Consulting Physician Urology 10/04/21 James Suarez MD Consulting Physician Cardiovascular Disease 10/05/21 Ramo Squires MD Consulting Physician Urology 01/23/22 James Juarez MD Referring Physician Dermatology 03/03/23
--- OUTSIDE RECORDS SUMMARY | 2025-04-08 21:19 | XMS_ITS | Encounter Summary ---
Author Organization [facility] Address [address] [place] [address] Phone Care Team Providers Care Therapeutic Strategy Lead Name Role Phone Osmel Moe MD Primary Care Provider + [phone] Gomez Raymond MD Unavailable [phone] James Suarez MD Unavailable [phone] Ramo Squires MD Unavailable [phone] James Juarez MD Unavailable [phone] Sera Vieira RN Unavailable [phone] Encounter Details Date Type Department Care Team (Late st Contact Info) Description 02/27/2023 Orders Only [facility] [address] [place] [address] Scanning, Provider Social History Tobacco [...] week 10/08/2021 How often do you attend [facility] or islam services? More than 4 times per year 10/08/2021 Do you belong to any clubs o r organizations such as adventist groups, unions, fraternal or athletic groups, or [...] place to sleep or slept in a fpc (including now)? No 10/16/2021 Personal Safety Answer Date Recorded Have you ever been in or are you currently in a harmful physical or emotional relationship or is someone making you feel afraid or unsafe? 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
[2025-04-08 22:26] VITALS: BP 122/74; PULSE 56; RESP 18; O2SAT 93
[2025-04-08 22:33] LABS: Immature Granulocyte Percent A 0.7 % (0-0.5); Lymphocytes Absolute Auto 1.94 K/mm3 (0.9-3.2); Mean Corpuscular HGB Conc 30.0 g/dl (32-36); Mean Corpuscular Hemoglobin 27.5 pg (26-34); Mean Corpuscular Volume 91.5 fl (80-100); Nucleated Red Blood Cells Absolute Auto 0.020 K/mm3 (0.0-0.012); Nucleated Red Blood Cells Perc 0.2 % (0.0-0.2); Platelet Count Result 402 k/mm3 (150-375); Red Blood Count 1.42 M/mm3 (4.2-5.4); White Blood Count 9.7 K/mm3 (4.5-10.0)
[2025-04-08 22:38] VITALS: BP 127/33; PULSE 60; RESP 18; TEMP 36.3; O2SAT 98
[2025-04-08 22:38] LABS: Hematocrit 13.0 % (37.0-47.0); Hemoglobin 3.9 g/dL (12.0-15.0)
[2025-04-08 22:57] LABS: Alanine Aminotransferase 14 U/L (6-35); Albumin Level 3.1 g/dL (3.5-5.1); Alkaline Phosphatase 86 U/L (38-126); Anion Gap 8 mmol/L (4-12); Aspartate Amino Transferase 21 U/L (14-36); Bilirubin,Total 0.2 mg/dL (0.2-1.3); Blood Urea Nitrogen 41 mg/dL (7-17); Calcium 9.9 mg/dL (8.4-10.2); Carbon Dioxide 12 mmol/L (22-30); Chloride 112 mmol/L (98-107); Estimated CRCL calculation 20 ml/min; Estimated Glomerular Filt Rate 34; Glucose 122 mg/dL (65-110); Potassium 5.3 mmol/L (3.4-5.0); Sodium 132 mmol/L (137-145); Total Protein 5.4 g/dL (6.3-8.2)
[2025-04-08 23:07] LABS: Immature Reticulocyte Fraction 27.7 % (3.0-15.9); Reticulocyte Hemoglobin Conten 19.9 pg (28.2-36.6); Reticulocytes Absolute 0.10 10^6/uL (0.02-0.10)
--- NOTE | 2025-04-08 23:15 | ED_ITS ---
HPI - Recheck/Abnormal Lab/Rx General Chief Complaint: Recheck/Abnormal Lab/Rx Stated Complaint: critical hgb 5.1 Time Seen by Provider: 04/08/25 22:57 History of Present Illness HPI narrative: 84-year-old female with history of atrial fibrillation on chronic anticoagulation with Xarelto, hypertension, previous psoas abscess and infection. Patient presents to the emergency department for lethargy, paleness and dizziness. She had a outpatient laboratory assessment showed a hemoglobin of 5.1. She states she has been having dark tarry stools for about 1 week time now. No bright red blood per rectum. No recent colonoscopies in the last time she had 1 was many years ago that showed hemorrhoids. No abdominal pain or cramping, no nausea, vomiting, chest pain, shortness a breath. Family states that she has been more weak lately but denies any falls or trauma. She was otherwise in her normal state of health. Has received transfusions of packed red blood cells in the hospital prior during admission for previous psoas abscess/infections. Related Data Home Medications ?Medication ?Instructions ?Recorded ?Confirmed ?Last Taken ?Type alendronate-vitamin D3 1,000 unit PO DAILY 02/27/23 02/29/24 Unknown History allopurinol 300 mg tablet 300 mg PO DAILY 02/27/23 02/29/24 Unknown History hydralazine 100 mg tablet 100 mg PO DAILY 02/27/23 02/29/24 Unknown History rivaroxaban 15 mg tablet (Xarelto) 15 mg PO DAILY 02/27/23 02/29/24 Unknown History valsartan 80 1 tablet PO DAILY 02/27/23 02/29/24 Unknown History mg-hydrochlorothiazide 12.5 mg tablet vitamin B complex 1 tablet PO DAILY 02/18/24 02/29/24 Unknown History amlodipine 10 mg tablet 10 mg PO DAILY 02/29/24 02/29/24 Unknown History ascorbic acid (vitamin C) 500 mg 500 mg PO DAILY 02/29/24 02/29/24 Unknown History capsule,extended release Allergies Allergy/AdvReac Type Severity Reaction Status Date / Time atorvastatin Allergy Muscle Pain Verified 03/04/24 15:10 Cephalosporins Allergy Unknown Verified 03/04/24 15:10 clindamycin Allergy Unknown Verified 03/04/24 15:10 codeine Allergy Unknown Verified 03/04/24 15:10 meperidine Allergy Unknown Verified 03/04/24 15:10 morphine Allergy Unknown Verified 03/04/24 15:10 Penicillins Allergy Fainting Verified 03/04/24 15:10 propoxyphene Allergy Unknown Verified 03/04/24 15:10 rosuvastatin Allergy Unknown Verified 03/04/24 15:10 Sulfa (Sulfonamide Allergy Other Verified 03/04/24 15:10 Antibiotics) tramadol Allergy Unknown Verified 03/04/24 15:10 Review of Systems 2 Review of Systems: As reviewed above in HPI [facility] Past Medical History Medical History Sepsis with metabolic encephalopathy Paroxysmal A-fib Osteoporosis Gout Encounter for removal of skin lesion Skin cancer A-fib Hypertension Surgical History Surgical History H/O lumpectomy H/O tubal ligation History of appendectomy H/O cataract extraction History of removal of pigmented skin lesion Family History Family History Mother Alzheimer's dementia Hypothyroidism Father Cancer Diabetes mellitus Social History Social History Social History: she has 2 daughters and is . she lives with her daughter. 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 She does not use any drugs alcohol or marijuana. Smoking status: Former smoker Alcohol intake: unknown Drinks per week: 1 Substance use: unknown Do You Feel Safe in your Home?: Yes Lack of Transportation: No Lack of Food: Never True Current Housing: I Have Housing Concerned About Future Housing: No Difficulty Paying Gas/Electric Bills: No Difficulty Paying for Meds: No Currently Unemployed: No Education: Don't Know Difficulty w/ Childcare or Family Care: No Spiritual care concerns: No Exam 2 Narrative: GENERAL: Ill-appearing, Pale and weak, awake alert answering questions although more lethargic HEAD: [Normocephalic, atraumatic.] EYES: Conjunctival pallor bilaterally, extraocular movements are intact ENT: Nares clear, no rhinorrhea or epistaxis. Mucous membranes dry. NECK: Supple. CHEST: [Clear to auscultation. No respiratory distress.] HEART: [Regular rate and rhythm]. No murmur heard. [Normal peripheral pulses.] ABDOMEN: [Soft, nondistended], [nontender], [No rigidity or guarding] safekeeping clerk digital rectal examination shows guaiac-positive blood and dried dark stool that appears melanotic EXTREMITIES: Normal range of motion. [No edema.] SKIN: Warm, dry, no rash. NEURO: [No focal deficits]. Alert and oriented [x3.] PSYCH: [Normal mood and affect.] Course Vital Signs Vital signs: Vital Signs Temperature 36.8 C 04/08/25 21:18 Pulse Rate 57 L 04/08/25 21:18 Respiratory Rate 16 04/08/25 21:18 Blood Pressure 112/47 L 04/08/25 21:18 Pulse Oximetry 100 04/08/25 21:18 Oxygen Delivery Room Air 04/08/25 21:18 Temperature 36.9 C 04/09/25 03:05 Pulse Rate 69 04/09/25 03:05 Respiratory Rate 17 04/09/25 03:05 Blood Pressure 138/41 L 04/09/25 03:05 Pulse Oximetry 100 04/09/25 03:05 Oxygen Delivery Room Air 04/08/25 22:26 MDM - Recheck/Abnormal Lab/Rx MDM Narrative Medical decision making narrative: 84-year-old female with history of atrial fibrillation on chronic anticoagulation with Xarelto, hypertension, previous psoas abscess and infection. Patient presents to the emergency department for lethargy, paleness and dizziness. She had a outpatient laboratory assessment showed a hemoglobin of 5.1. She states she has been having dark tarry stools for about 1 week time now. No bright red blood per rectum. No recent colonoscopies in the last time she had 1 was many years ago that showed hemorrhoids. No abdominal pain or cramping, no nausea, vomiting, chest pain, shortness a breath. Family states that she has been more weak lately but denies any falls or trauma. She was otherwise in her normal state of health. Has received transfusions of packed red blood cells in the hospital prior during admission for previous psoas abscess/infections. Patient is ill-appearing and weak, pale conjunctiva pallor bilaterally and low hemoglobin outside hospital. With concerning reports of dark tarry stools and melena for 1 week. She endorses loose black colored stool. No bright red blood. Digital rectal examination shows guaiac-positive melena. She is hemodynamically stable with normal blood pressure, no tachycardia, fever, hypoxia. Nontender soft abdomen. Repeat hemoglobin obtained after ultrasound IV for access. Hemoglobin here is 3.9 with concern for active GI bleed CT scan with angiography phase of the abdomen pelvis was ordered at this time as well as blood blood work for anemia differential, chest x-ray and EKG and she was given 3 units of packed red blood cells typed and crossed ordered. Family members were made aware of the plan going forward at this time. She is on Xarelto for chronic anticoagulation of AFib. Coag studies ordered. Patient's remaining workup shows other derangements including minor hyperkalemia 5.3, elevated BUN and creatinine with concern for prerenal azotemia and GI bleed as the source of the elevation. Normal glucose. Normal LFTs. CTA imaging shows no active GI bleed or acute hemorrhage that was detected. Small pericardial effusion is seen. No aortic dissection or aneurysm. 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 Extending into the right quadratus lumborum. There is also a thickened endometrial complex which could be seen hyperplasia or carcinoma. Patient has no vaginal complaints of vaginal bleeding so this is likely not the cause of her bleeding or acute hemoglobin drop from blood loss. Patient's fluid collection in the psoas area previously has been purulent and drained with IR and General surgery. In the setting of her low hemoglobin dropped this could also be signs of a blood collection such as a muscular hematoma or contained bleed although rim enhancing collection favors more infectious pathology. She is afebrile. Given her dark tarry stool sources likely GI bleeding in nature. Patient remains hemodynamically stable. I consulted Gastroenterology Dr. Dumont who recommended additional resuscitation with blood products, trending H&H and will be on consult for urgent colonoscopy/endoscopy for delineation. Spoke to the hospitalist Dr. Pollock who recommended I touch base with General surgery and Interventional Radiology about the psoas abscess because that might need more attention in addition to the GI bleed rule out. Spoke to Dr. Hamm from General surgery who recommended expedient transfer to higher level of care center as we do not have IR capabilities over the weekend and patient needs evaluation for both the suspected GI bleeding and psoas muscle abscess/fluid collection. Spoke to the [facility] transfer system after I discussed with the patient and the family members preferential transport to another higher level of care tertiary center and they would like [facility]. I was connected 1st with the general surgeon at their facility and we went over patient's clinical exam, historical elements, CT findings and they reviewed the imaging in addition to their previous studies that they have over there for the abscess she has had previously. His recommendations were to transfer her to the emergency department for evaluation by both general surgery and IR for definitive management. The emergency room physician was spoken with and I discussed patient's clinical status and current plan of care for 3 unit transfusion and transfer to their facility for tertiary care workup and evaluation. Patient was accepted as a direct ER to ER transfer under accepting physician Dr. Littlejohn. Attempted flying the patient via helicopter but given current weather patterns [facility] and [facility] have declined. Patient was transferred via [facility] ground unit. Patient was evaluated multiple times with improvement in clinical status after resuscitation with blood products. No further melanotic episodes or bowel movements here in the emergency department. Patient comfortable with the transfer process and she left the department without any further issue. Medical Records Attestation: I reviewed the patient's medical records. Lab Data Attestation: I reviewed the patient's lab results. 04/08/25 22:28 04/08/25 22:28 Labs: Lab Results 04/08/25 04/08/25 Range/Units 22:25 22:28 WBC 9.7 (4.5-10.0) K/mm3 RBC 1.42 L (4.2-5.4) M/mm3 Hgb 3.9 L* D (12.0-15.0) g/dL Hct 13.0 L* (37.0-47.0) % MCV 91.5 (80-100) fl MCH 27.5 (26-34) pg MCHC 30.0 L (32-36) g/dl RDW 16.6 H (11.5-14.5) % Plt Count 402 H D (150-375) k/mm3 MPV 10.1 (7.4-10.4) fl Immature Gran % (Auto) 0.7 H (0-0.5) % Neut % (Auto) 68.3 (45.5-73.1) % Lymph % (Auto) 20.0 (18.3-44.2) % Deuel % (Auto) 10.2 H (2.6-8.5) % Eos % (Auto) 0.6 (0-4.4) % Baso % (Auto) 0.2 (0.2-1.2) % Lymph # (Auto) 1.94 (0.9-3.2) K/mm3 Deuel # (Auto) 1.0 H (0.1-0.6) K/mm3 Eos # (Auto) 0.1 (0-0.3) K/mm3 Baso # (Auto) 0.0 (0.0-0.1) K/mm3 Abs Immat Gran (auto) 0.07 H (0.00-0.031) K/mm3 Absolute Neuts (auto) 6.6 (1.3-6.7) K/mm3 Absolute Nucleated RBC 0.020 H (0.0-0.012) K/mm3 Nucleated RBC % 0.2 (0.0-0.2) % Absolute Retic 0.10 (0.02-0.10) 10^6/uL Percent Retic 7.28 H (0.7-4.3) % Immature Retic Fraction 27.7 H (3.0-15.9) % Retic Hgb Content 19.9 L (28.2-36.6) pg Haptoglobin Pending PT 28.5 H (11.1-14.7) Seconds INR 2.7 APTT 31.6 (22.3-36.8) Seconds Sodium 132 L (137-145) mmol/L Potassium 5.3 H (3.4-5.0) mmol/L Chloride 112 H (98-107) mmol/L Carbon Dioxide 12 L (22-30) mmol/L Anion Gap 8 (4-12) mmol/L BUN 41 H D (7-17) mg/dL Creatinine 1.48 H (0.7-1.0) mg/dL Estim Creat Clear Calc 20 ml/min Estimated GFR 34 L (59 - ) Glucose 122 H (65-110) mg/dL Calcium 9.9 (8.4-10.2) mg/dL Iron 11 L (37-170) ug/dL TIBC 418 (261-462) ug/dL % Saturation 3 L (20-50) % Ferritin 7.12 L (11.1-264) ng/mL Total Bilirubin 0.2 (0.2-1.3) mg/dL AST 21 (14-36) U/L ALT 14 (6-35) U/L Alkaline Phosphatase 86 (38-126) U/L Lactate Dehydrogenase 140 (120-246) U/L Total Protein 5.4 L (6.3-8.2) g/dL Albumin 3.1 L (3.5-5.1) g/dL Vitamin B12 > 1000.0 H (239-931) pg/mL Folate 16.4 (2.76->20) ng/mL Blood Type O Positive Antibody Screen Negative Crossmatch See Detail Imaging Data Attestation: I personally reviewed and interpreted this imaging study as follows: My impression: Impressions Abdomen/Pelvis CTA 04/08/25 23:41 IMPRESSION: Small pericardial effusion. Small right pleural effusion. No active GI bleeding or other acute hemorrhage detected. No aortic dissection or aneurysm. 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 Thickened endometrial complex, which may be seen with endometrial hyperplasia, polyp, or carcinoma. Consider nonemergent but timely pelvic ultrasound for confirmation and/or gynecology referral for potential sampling. Urinary bladder wall thickening as can be seen with cystitis. Chest X-Ray 04/09/25 00:19 IMPRESSION: Mild interstitial edema, possibly overlying mild chronic interstitial change. Critical Care Time Critical Care Time Critical Care Time: Yes Total Critical Care Time: 105 Discharge Plan Discharge Clinical Impression: Anemia requiring transfusions, Abscess, psoas, Chronic anticoagulation, ABLA (acute blood loss anemia), Severe anemia, Acute prerenal azotemia, Weakness, Paroxysmal A-fib Patient Disposition: Acute Care Hospital Condition: Serious Patient Language: Sri Lankan Prescriptions: No Action vitamin B complex Tablet 1 tablet PO DAILY amlodipine 10 mg Tablet 10 mg PO DAILY ascorbic acid (vitamin C) 500 mg Capsule, Extended Release 500 mg PO DAILY metronidazole 500 mg Tablet 500 mg PO Q8HR 5 Days Qty: 15 0RF potassium chloride 20 mEq Packet 40 meq PO DAILY Qty: 30 0RF metoprolol succinate 25 mg tablet extended release 24 hr 25 mg PO DAILY Qty: 30 0RF magnesium hydroxide [Milk of Magnesia] 400 mg/5 mL suspension 30 ml PO DAILY PRN (Reason: constipation) Qty: 3000 0RF levofloxacin 500 mg tablet 500 mg PO DAILY Qty: 21 0RF valsartan-hydrochlorothiazide 80-12.5 mg tablet 1 tablet PO DAILY allopurinol 300 mg tablet 300 mg PO DAILY Xarelto 15 mg tablet 15 mg PO DAILY Rx Instructions: Take with breakfast hydralazine 100 mg tablet 100 mg PO DAILY alendronate-vitamin D3 1,000 unit PO DAILY Follow-up/Referrals: Payal,Osmel Swenson MD [Primary Care Provider] - Time of Disposition: 03:10
--- OUTSIDE RECORDS SUMMARY | 2025-04-08 23:15 | XMS_ITS | Encounter Summary ---
Author Organization [facility] Healthcare Address [address] [place] [address] Care Team Providers Care Gas Furnace Installer Name Role Phone Osmel Moe MD Primary Care Provider + [phone] Gomez Raymond MD Unavailable [phone] James Suarez MD Unavailable [phone] Ramo Squires MD Unavailable [phone] James Juarez MD Unavailable [phone] Encounter Details Date Type Department Care Team (Late st Contact Info) Description 04/08/2025 2:20 PM CDT Lab [facility] [address] [place] [phone] Fatigue, unspecified type; Vertigo; Diabetes mellitus without complication (HCC) Social History Tobacco Use Types Packs/Day Years Used Date Smoking Tobacco: Never Passive Smoke Exposure: Past Smokeless Tobacco: Never Alcohol Use Standard Drinks/Week Comments Yes 0 (1 standard drink = 0.6 oz pur e alcohol) [facility] Utilities Answer Date Recorded In the past 12 months has [employer], gas, oil, or water company threatened to [...] often do you attend chur ch or baptist services? 1 to 4 times per year 04/08/2024 Do you belong to any clubs o r organizations such as orthodoxy groups, unions, fraternal or athletic groups, or [...] in a jail (including now)? No 10/16/2021 Housing Stability Vital Sign Answer Kole e Recorded In the last 12 months, was t here a time when you were not able to pay the mortgage or rent on time? No 04/08/2024 In the past 12 months, how m any times have you moved where you were living? 1 04/08/2024 At any time in the past 12 m [facility], were you homeless or living in a jail (including now)? No 04/08/2024 Personal Safety Answer Date Recorded Have you ever been in or are you currently in a harmful physical or emotional relationship or is someone making you feel afraid or unsafe? 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 Testing performed by: [address] [address] Blood 04/08/2025 2:13 PM CDT 04/08/2025 7:37 PM CDT us Melony Oliveros COMPUTER PROGRAMMER ANALYST LAB BLOOD ORDERABLES Final Resul t QUYNH [address] [facility] [place] [address] * T4, free (04/08/2025 2:13 PM CDT) Free T4 1.30 0.90 - 1.70 ng/dL Comment:Testing performed by : [address] [address] Blood 04/08/2025 2:13 PM CDT 04/08/2025 7:37 PM CDT Melony Domo ELMORE LAB BLOOD ORDERABLES Final Resul t [address] [place] [address] * (ABNORMAL) Differential, auto (04/08/2025 2:13 PM CDT) Neutrophil abs 8.27(H) 1.50 - 6.50 K/cumm Comment:Testing performed by : [address], [address] Imm gran abs 0.05 0.00 - 0.10 K/cumm CERNER Comment:Testing performed by : [address], [address] Lymphocyte abs 1.75 0.80 - 3.30 K/cumm CERNER Comment:Testing performed by : [facility], [address] [place] [address]., [address] Monocyte abs 0.86(H) 0.20 - 0.80 K/cumm CERNER Comment:Testing performed by : [address] [address] Eosinophil abs 0.07 0.00 - 0.50 K/cumm CERNER Comment:Testing performed by : [address] [address] Basophil abs 0.06 0.00 - 0.10 K/cumm CERNER Comment:Testing performed by : [address] [address] Neutrophil pct 74.8 % CERNER Comment: Interpretive Data Percent cell count reference ranges are not reported, since discordance with absolute values may lead to misinterpretation of CBC data. Current Interpretive Data was last revised on 2017. Testing performed by: [address] [address] Imm gran pct 0.5 % CERNER Comment: Interpretive Data Percent cell count reference ranges are not reported, since discordance with absolute values may lead to misinterpretation of CBC data. Current Interpretive Data was last revised on 2017. Testing performed by: [facility], [address] [place] [address]., [address] Lymphocyte pct 15.8 % CERNER Comment: Interpretive Data Percent cell count reference ranges are not reported, since discordance with absolute values may lead to misinterpretation of CBC data. Current Interpretive Data was last revised on 2017. Testing performed by: [address] [address] Monocyte pct 7.8 % CERNER Comment: Interpretive Data Percent cell count reference ranges are not reported, since discordance with absolute values may lead to misinterpretation of CBC data. Current Interpretive Data was last revised on 2017. Testing performed by: [address] [address] Eosinophil pct 0.6 % CERNER Comment: Interpretive Data Percent cell count reference ranges are not reported, since discordance with absolute values may lead to misinterpretation of CBC data. Current Interpretive Data was last revised on 2017. Testing performed by: [address] [address] Basophil pct 0.5 % CERNER Comment: Interpretive Data Percent cell count reference ranges are not reported, since discordance with absolute values may lead to misinterpretation of CBC data. Current Interpretive Data was last revised on 2017. Testing performed by: [address] [address] Blood 04/08/2025 2:13 PM CDT 04/08/2025 7:30 PM CDT us Melony Oliveros NP LAB BLOOD ORDERABLES Final Resul t QUYNH GAVIRIA Sunitha Shaheed Department [place] [address] * (ABNORMAL) Comprehensive metabolic panel (04/08/2025 2:13 PM CDT) Sodium 132(L) 135 - 145 mmol/L Comment:Testing performed by : [address] [address] Potassium, pl 5.7(H) 3.3 - 4.9 mmol/L CERNER CH Comment:Testing performed by : [facility], [address] [place] [address]., [address] Chloride 106 97 - 110 mmol/L CERNER CH Comment:Testing performed by : [facility], [address] [place] [address]., [address] CO2 13(L) 22 - 32 mmol/L CERNER CH Comment:Testing performed by : [address] [address] Anion gap 13 2 - 15 mmol/L CERNER CH Comment:Testing performed by : [address], [address] BUN 42(H) 6 - 25 mg/dL CERNER CH Comment:Testing performed by : [address] [address] Creatinine 1.37(H) 0.60 - 1.10 mg/dL CERNER CH Comment:Testing performed by : [address], [address] Glucose 124 70 - 199 mg/dL CERNER [...] was last revised 2022. Testing performed by: [address] [address] Calcium 10.2 8.5 - 10.3 mg/dL CERNER CH Comment:Testing performed by : [address] [address] Bilirubin, total 0.2 0.1 - 1.2 mg/dL CERNER CH Comment:Testing performed by : [address] [address] Protein, pl 6.1(L) 6.5 - 8.5 g/dL CERNER CH Comment:Testing performed by : [facility], [address] [place] [address]., [address] Albumin 3.6 3.5 - 5.0 g/dL CERNER Comment:Testing performed by : [address], [address] Alk phos 120 40 - 130 Units/L CERNER CH Comment:Testing performed by : [address], [address] ALT 13 7 - 45 Units/L CERNER Comment:Testing performed by : [facility], [address] [place] [address], [address] AST 21 10 - 45 Units/L CERNER Comment:Testing performed by : [address], [address] Blood 04/08/2025 2:13 PM CDT 04/08/2025 7:30 PM CDT Melony Oliveros NP LAB BLOOD ORDERABLES Final Resul t [address] Department [place] [address] * (ABNORMAL) CBC with auto differential (04/08/2025 2:13 PM CDT) WBC 11.06(H) 3.80 - 9.90 K/cumm Comment:Testing performed by : [address], [address] Hgb 5.1(C) 11.9 - 15.5 g/dL CERNER Comment: This result has been called to Dr. Yoni Redmond by [id number] on 04/08/2025 20:02:54, and has been read back. Testing performed by: [address], [address] Hct 17.8(L) 35.6 - 45.5 % CERNER Comment:Testing performed by : [address], [address] Plt 504(H) 150 - 400 K/cumm CERNER Comment:Testing performed by : [address] [place]., [address] MPV 11.3 9.1 - 12.3 fL CERNER Comment:Testing performed by : [facility], [address] [place] [address], [address] RBC 1.82(L) 3.90 - 5.20 M/cumm CERNER CH Comment:Testing performed by : [address], [address] MCV 97.8(H) 81.3 - 96.4 fL CERNER CH Comment:Testing performed by : [facility], [address] [place] [address], [address] MCH 28.0 27.1 - 33.3 pg CERNER CH Comment:Testing performed by : [address], [address] MCHC 28.7(L) 32.3 - 35.7 g/dL CERNER Comment:Testing performed by : [address], [address] RDW CV 16.7(H) 11.1 - 14.9 % CERNER Comment:Testing performed by : [address], [address] RDW SD 59.8(H) 35.7 - 48.1 fL CERNER Comment:Testing performed by : [address], [address] NRBC abs 0.02(H) 0.00 - 0.01 K/cumm [facility] Comment:Testing performed by : [address], [address] Blood 04/08/2025 2:13 PM CDT 04/08/2025 7:30 PM CDT us Melony Oliveros NP LAB BLOOD ORDERABLES Final Resul t [address] [place] [address] * Hemoglobin A1c (04/08/2025 2:13 PM CDT) [facility] Hgb A1C 4.7 4.0 - 5.6 % Comment:Testing performed by : [address] [address] Estimated Average Glucose 88 mg/dL QUYNH GAVIRIA Comment: The ADA recommends reporting an estimated Average Glucose (eAG) with all Hemoglobin A1c results using the equation derived from a study of 507 normal and diabetic adults. Minority populations were underrepresented and children were not included. (Diabetes Care 31:8973-3916, 2008). The eAG is not equivalent to a fasting glucose. Testing performed by: [address] [address] Blood 04/08/2025 2:13 PM CDT 04/08/2025 7:30 PM CDT Melony Oliveros NP LAB BLOOD ORDERABLES Final Resul t Performing Organization Address [facility] Co de Phone Number QUYNH GAVIRIA [address] [place] [address] * Cholesterol, LDL, direct (04/08/2025 2:13 PM [...] last revised on 2018. Testing performed by: [address] [address] Blood 04/08/2025 2:13 PM CDT 04/08/2025 7:30 PM CDT Melony Oliveros NP LAB BLOOD ORDERABLES Final Resul t Performing Organization Address [facility] Co de Phone Number BARRYYEE [address] Sha[address] [employer] [place] [address] * (ABNORMAL) Thyroid Function [place] (04/08/2025 2:13 PM CDT) TSH 4.26(H) 0.30 - 4.20 mcIUnit/mL Comment:Testing performed by : [facility], [address] [place] [address], [place]., [address] Blood 04/08/2025 2:13 PM CDT 04/08/2025 7:30 PM CDT us Melony Oliveros COMPUTER PROGRAMMER ANALYST LAB BLOOD ORDERABLES Final Resul t QUYNH [address] [facility] [place] [address] documented in this encounter Visit Diagnoses Diagnosis Fatigue, unspecified type Vertigo Dizziness and giddiness Diabetes mellitus without complication (HCC) Type II or unspecified type diabetes mellitus without mention of complication, not stated as uncontrolled documented in this encounter Care Teams Gas Furnace Installer Relationship Specialty Start Date End Date Osmel Moe MD PCP - General 12/20/16 Gomez Raymond MD Consulting Physician Urology 10/04/21 James Suarez MD Consulting Physician Cardiovascular Disease 10/05/21 Ramo Squires MD Consulting Physician Urology 01/23/22 James Juarez MD Referring Physician Dermatology 03/03/23 documented as of this encounter
--- OUTSIDE RECORDS SUMMARY | 2025-04-08 23:15 | XMS_ITS | Encounter Summary ---
Author Organization [facility] Address [address] [place] [address] Phone Care Team Providers Care Tumor Registrar Name Role Phone Osmel Moe MD Primary Care Provider + [phone] Gomez Raymond MD Unavailable [phone] James Suarez MD Unavailable [phone] Ramo Squires MD Unavailable [phone] James Juarez MD Unavailable [phone] Sera Vieira RN Unavailable [phone] Encounter Details Date Type Department Care Team (Late st Contact Info) Description 03/06/2023 Orders Only [facility] [address] [place] [address] Scanning, Provider Social History Tobacco [...] week 10/08/2021 How often do you attend [facility] or hindu services? More than 4 times per year 10/08/2021 Do you belong to any clubs o r organizations such as restorationism groups, unions, fraternal or athletic groups, or [...] place to sleep or slept in a half-way (including now)? No 10/16/2021 Personal Safety Answer Date Recorded Have you ever been in or are you currently in a harmful physical or emotional relationship or is someone making you feel afraid or unsafe? 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
--- OUTSIDE RECORDS SUMMARY | 2025-04-08 23:15 | XMS_ITS | Encounter Summary ---
Author Organization [facility] Healthcare Address [address] [place] [address] Care Team Providers Care Well Service Pump Equipment Operator Name Role Phone Osmel Moe MD Primary Care Provider + [phone] Gomez Raymond MD Unavailable [phone] James Suarez MD Unavailable [phone] Ramo Squires MD Unavailable [phone] James Juarez MD Unavailable [phone] Encounter Details Date Type Department Care Team (Late st Contact Info) Description 04/08/2025 Telephone [facility] Medical Group [facility] [address] [place] [address] Yoni Redmond MD [address] [address] Social History Tobacco Use Types Packs/Day Years Used Date Smoking Tobacco: Never Passive Smoke Exposure: Past Smokeless Tobacco: Never Alcohol Use Standard Drinks/Week Comments Yes 0 (1 standard drink = 0.6 oz pur e alcohol) [facility] Utilities Answer Date Recorded In the [...] How often do you attend chur or restorationist services? 1 to 4 times per year 04/08/2024 Do you belong to any clubs o r organizations such as pentecostalism groups, unions, fraternal or athletic groups, or [...] place to sleep or slept in a assisted (including now)? No 10/16/2021 Housing Stability Vital Sign Answer Kole e Recorded In the last 12 months, was t here a time when you were not able to pay the mortgage or rent on time? No 04/08/2024 In the past 12 months, how m any times have you moved where you were living? 1 04/08/2024 At any time in the past 12 m [facility], were you homeless or living in a assisted (including now)? No 04/08/2024 Personal Safety Answer Date Recorded Have you ever been in or are you currently in a harmful physical or emotional relationship or is someone making you feel afraid or unsafe? 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 Dr. Moe informed of lab results. documented in this encounter Plan of Treatment Not on file documented as of this encounter Visit Diagnoses Not on filedocumented in this encounter Care Teams Well Service Pump Equipment Operator Relationship Specialty Start Date End Date Osmel Moe MD PCP - General 12/20/16 Gomez Raymond MD Consulting Physician Urology 10/04/21 James Suarez MD Consulting Physician Cardiovascular Disease 10/05/21 Ramo Squires MD Consulting Physician Urology 01/23/22 James Juarez MD Referring Physician Dermatology 03/03/23 documented as of this encounter
--- OUTSIDE RECORDS SUMMARY | 2025-04-08 23:15 | XMS_ITS | Encounter Summary ---
Author Organization [facility] Healthcare Address [address] [place] [address] Care Team Providers Care Field Technician Name Role Phone Osmel Moe MD Primary Care Provider + [phone] Gomez Raymond MD Unavailable [phone] James Suarez MD Unavailable [phone] Ramo Squires MD Unavailable [phone] James Juarez MD Unavailable [phone] Reason for Visit * Reason Onset Date Comments UTI 04/07/2025 Encounter Details Date Type Department Care Team (Late st Contact Info) Description 04/07/2025 Telephone [facility] Medical Group [facility] [address] [place] [phone] Osmel Moe MD [address] [facility] [[email or web address] [address] [place] [address] UTI Social History Tobacco Use Types Packs/Day Years Used Date Smoking Tobacco: Never Passive Smoke Exposure: Past Smokeless Tobacco: Never Alcohol Use Standard Drinks/Week Comments Yes 0 (1 standard drink = 0.6 oz pur e alcohol) [facility] Utilities Answer Date Recorded In the past [...] often do you attend chur ch or scientology services? 1 to 4 times per year 04/08/2024 Do you belong to any clubs o r organizations such as christianity groups, unions, fraternal or athletic groups, or [...] in a half-way (including now)? No 10/16/2021 Housing Stability Vital Sign Answer Kole e Recorded In the last 12 months, was t here a time when you were not able to pay the mortgage or rent on time? No 04/08/2024 In the past 12 months, how m any times have you moved where you were living? 1 04/08/2024 At any time in the past 12 m [facility], were you homeless or living in a half-way (including now)? No 04/08/2024 Personal Safety Answer Date Recorded Have you ever been in or are you currently in a harmful physical or emotional relationship or is someone making you feel afraid or unsafe? 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 Did advise SOLID WASTE COLLECTION WORKER visit tomorrow for evaluation/treatment before the weekend. Shadia did agree and scheduled pt with [facility] for tomorrow at 1 PM. Advised [facility] is cashless. Advised to take pt to ER if symptoms worsen. Shadia did voice understanding to all and had no further questions/concerns at this time. * Telephone Encounter - Irwin Jeronimo - 04/07/2025 11:37 AM CDT Pt's daughter called in because Friday pt felt weak and yesterday she was weak and confused. Yesterday she started taking ciprofloxacin that she received from urologist in the past for when this happens. Pt seems a bit better today but daughter wanted to make sure there isn't anything else she should do. CBN: [id number] Pharm: Melissa in [place] documented in this encounter Plan of Treatment Not on file documented as of this encounter Visit Diagnoses Not on filedocumented in this encounter Care Teams Field Technician Relationship Specialty Start Date End Date Osmel Moe MD PCP - General 12/20/16 Gomez Raymond MD Consulting Physician Urology 10/04/21 James Suarez MD Consulting Physician Cardiovascular Disease 10/05/21 Ramo Squires MD Consulting Physician Urology 01/23/22 James Juarez MD Referring Physician Dermatology 03/03/23 documented as of this encounter
--- OUTSIDE RECORDS SUMMARY | 2025-04-08 23:15 | XMS_ITS | Encounter Summary ---
Author Organization [facility] Address [address] [place] [address] Phone Care Team Providers Care Neonatal Surgeon Name Role Phone Osmel Moe MD Primary Care Provider + [phone] Gomez Raymond MD Unavailable [phone] James Suarez MD Unavailable [phone] Ramo Squires MD Unavailable [phone] James Juarez MD Unavailable [phone] Sera Vieira RN Unavailable [phone] Encounter Details Date Type Department Care Team (Late st Contact Info) Description 12/07/2021 Orders Only [facility] [address] [place] [address] Scanning, Provider Social History Tobacco [...] week 10/08/2021 How often do you attend [facility] or orthodox services? More than 4 times per year 10/08/2021 Do you belong to any clubs o r organizations such as confucianism groups, unions, fraternal or athletic groups, or [...] No 10/08/2021 Housing Stability Vital Sign Answer Kloe e Recorded In the last 12 months, [...] in a fdc (including now)? 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
--- OUTSIDE RECORDS SUMMARY | 2025-04-08 23:15 | XMS_ITS | Clinical Summary ---
Author Organization [facility] Address [address] [place] [address] Phone Care Team Providers Care Regional Coordinator Name Role Phone Osmel Moe MD Primary Care Provider [phone] Social History Tobacco Use Types Packs/Day Years Used Date Smoking Tobacco: Never Assessed Comments Unknown Sex and Gender Information Value Date Recorded Sex Assigned at Not on file Legal Sex Female 12:12 PM CIRCULATION CLERK Gender Identity Not on file Sexual [...] topic Insurance MEDICARE C [employer] Care Teams Regional Coordinator Relationship Specialty Start Date End Date Osmel Moe MD [address] [place] [address] PCP - General Internal Medicine 10/10/21
--- OUTSIDE RECORDS SUMMARY | 2025-04-08 23:15 | XMS_ITS | Encounter Summary ---
Author Organization [facility] Healthcare Address [address] [place] [address] Care Team Providers Care Division Operations Manager Name Role Phone Osmel Moe MD Primary Care Provider +- [phone] Gomez Raymond MD Unavailable [phone] James Suarez MD Unavailable [phone] Ramo Squires MD Unavailable [phone] James Juarez MD Unavailable [phone] Reason for Referral * Home Health (Routine) - Pending Review Specialty Diagnoses / Procedures Referred By Jennyfer rojas Referred To Contact Home Health Services Diagnoses Fatigue, unspecified type Vertigo BCC (basal cell carcinoma), lip Diabetes mellitus without complication (HCC) Melony Oliveros, MENTAL HEALTH AIDE [address] [place] [address] Phone: tel: fax: Referral ID Status Reason Start Date Expiration Date Visits Requested Visits Authorized [id number] Pending Review Specialty Services Required 04/08/2025 05/08/2026 1 1 Question Answer [id number] Home Health Primary disciplines requested: Longterm Secondary disciplines requested: Aide Home Health Services [...] Description 04/08/2025 1:00 PM CDT Office Visit [facility] [address] [place] [address] Melony Oliveros NP [address] [place] [address] Other fatigue (Primary Dx); Vertigo; Essential hypertension; Paroxysmal atrial fibrillation (HCC); Diabetes mellitus without complication (HCC); BCC (basal cell carcinoma), lip Social History Tobacco Use Types Packs/Day Years Used Date Smoking Tobacco: Never Passive Smoke Exposure: Past Smokeless Tobacco: Never Alcohol Use Standard Drinks/Week Comments Yes 0 (1 standard drink = 0.6 oz pur e alcohol) [facility] Utilities Answer Date Recorded In the past 12 months has import.io, gas, oil, or water [place] threatened to shut off services in your [...] often do you attend chur ch or voodoo services? 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 Atrial Fibrillation (AFib) Under spanish professor care with regular heart rhythm and effective [...] information on in-home care services at the front end technician and schedule follow-up appointments as needed. Return in about 4 months (around 08/11/2025), or if symptoms worsen or fail to improve, for Next scheduled follow up. Melony Oliveros NP documented in this encounter Plan of Treatment Scheduled Referrals Name Type Priority Associated Diagnoses Orde r Schedule Ambulatory referral to Home Health Outpatient Referral Routine Other fatigue Vertigo BCC (basal cell carcinoma), lip Diabetes mellitus without complication (HCC) 1 Occurrences starting 04/08/2025 until 10/09/2025 documented as of this encounter Results * (ABNORMAL) Thyroid Function [place] (04/08/2025 2:13 PM CDT) TSH 4.26(H) 0.30 - 4.20 mcIUnit/mL Comment:Testing performed by : [facility], [address] [place] [address]., [address] Blood 04/08/2025 2:13 PM CDT 04/08/2025 7:30 PM CDT Melony Oliveros NP LAB BLOOD ORDERABLES Final Resul t [facility] [address] [facility] [place] Department [place] [address] * Cholesterol, LDL, direct (04/08/2025 2:13 PM [...] last revised on 2018. Testing performed by: [facility], [address] [place] [address], [place]., [address] Blood 04/08/2025 2:13 PM CDT 04/08/2025 7:30 PM CDT Melony Oliveros LAB BLOOD ORDERABLES Final Resul t Performing Organization Address [facility] Co de Phone Number [facility] [address] [facility] [place] Department [place] [address] * Hemoglobin A1c (04/08/2025 2:13 PM CDT) Pathologist [facility] Hgb A1C 4.7 4.0 - 5.6 % Comment:Testing performed by : [address] [address] Estimated Average Glucose 88 mg/dL QUY[facility] Comment: The ADA recommends reporting an estimated Average Glucose (eAG) with all Hemoglobin A1c results using the equation derived from a study of 507 normal and diabetic adults. Minority populations were underrepresented and children were not included. (Diabetes Care 31:8314-3995, 2008). The eAG is not equivalent to a fasting glucose. Testing performed by: [address] [address] Blood 04/08/2025 2:13 PM CDT 04/08/2025 7:30 PM CDT Melonybasil Oliveros LAB BLOOD ORDERABLES Final Resul t Performing Organization Address [facility] de Phone Number [facility] [address] [facility] [place] Department [place] [address] * (ABNORMAL) CBC with auto differential (04/08/2025 2:13 PM CDT) Pathologist [facility] WBC 11.06(H) 3.80 - 9.90 K/cumm Comment:Testing performed by : [address] [address] Hgb 5.1(C) 11.9 - 15.5 g/dL QUYNH Comment: This result has been called to Dr. Yoni Redmond by [id number] on 04/08/2025 20:02:54, and has been read back. Testing performed by: [address] [address] Hct 17.8(L) 35.6 - 45.5 % BARRYNER Comment:Testing performed by : [facility], [address] [place] [address], [address] Plt 504(H) 150 - 400 K/cumm CERNER Comment:Testing performed by : [facility], [address] [place] [address], [address] MPV 11.3 9.1 - 12.3 fL CERNER Comment:Testing performed by : [address], [address] RBC 1.82(L) 3.90 - 5.20 M/cumm CERNER CH Comment:Testing performed by : [address], [address] MCV 97.8(H) 81.3 - 96.4 fL CERNER Comment:Testing performed by : [address], [address] MCH 28.0 27.1 - 33.3 pg CERNER Comment:Testing performed by : [address], [address] MCHC 28.7(L) 32.3 - 35.7 g/dL CERNER Comment:Testing performed by : [address], [address] RDW CV 16.7(H) 11.1 - 14.9 % CERNER Comment:Testing performed by : [address], [address] RDW SD 59.8(H) 35.7 - 48.1 fL CERNER Comment:Testing performed by : [address], [address] NRBC abs 0.02(H) 0.00 - 0.01 K/cumm BANNERNER Comment:Testing performed by : [address], [address] Blood 04/08/2025 2:13 PM CDT 04/08/2025 7:30 PM CDT us Melony Oliveros NP LAB BLOOD ORDERABLES Final Resul t [address] Department [place] [address] * (ABNORMAL) Comprehensive metabolic panel (04/08/2025 2:13 PM CDT) Sodium 132(L) 135 - 145 mmol/L Comment:Testing performed by : [address] [address] Potassium, pl 5.7(H) 3.3 - 4.9 mmol/L CERNER CH Comment:Testing performed by : [address] [address] Chloride 106 97 - 110 mmol/L CERNER CH Comment:Testing performed by : [address] [address] CO2 13(L) 22 - 32 mmol/L CERNER CH Comment:Testing performed by : [address] [address] Anion gap 13 2 - 15 mmol/L CERNER CH Comment:Testing performed by : [address] [address] BUN 42(H) 6 - 25 mg/dL CERNER CH Comment:Testing performed by : [address] [address] Creatinine 1.37(H) 0.60 - 1.10 mg/dL CERNER CH Comment:Testing performed by : [address] [address] Glucose 124 70 - 199 mg/dL CERNER Comment: Interpretive Data Fasting glucose >/= 126 [...] was last revised 2022. Testing performed by: [address] [address] Calcium 10.2 8.5 - 10.3 mg/dL CERNER Comment:Testing performed by : [facility] [address] [place] [address]., [address] Bilirubin, total 0.2 0.1 - 1.2 mg/dL BANNERNER Comment:Testing performed by : [address], [address] Protein, pl 6.1(L) 6.5 - 8.5 g/dL CERNER Comment:Testing performed by : [facility], [address] [place] [address], [address] Albumin 3.6 3.5 - 5.0 g/dL CERNER Comment:Testing performed by : [facility], [address] [place] [address], [address] Alk phos 120 40 - 130 Units/L CERNER CH Comment:Testing performed by : [address], [address] ALT 13 7 - 45 Units/L CERNER Comment:Testing performed by : [facility], [address] [place] [address], [address] AST 21 10 - 45 Units/L CERNER Comment:Testing performed by : [address], [address] Blood 04/08/2025 2:13 PM CDT 04/08/2025 7:30 PM CDT Melony Oliveros NP LAB BLOOD ORDERABLES Final Resul t Performing Organization Address City/State/[facility] Co de Phone Number [address] Department [place] [address] documented in this encounter Visit Diagnoses Diagnosis [...] daily added in this encounter Care Teams Division Operations Manager Relationship Specialty Start Date End Date Osmel Moe MD PCP - General 12/20/16 Gomez Raymond MD Consulting Physician Urology 10/04/21 James Suarez MD Consulting Physician Cardiovascular Disease 10/05/21 Ramo Squires MD Consulting Physician Urology 01/23/22 James Juarez MD Referring Physician Dermatology 03/03/23 documented as of this encounter
--- OUTSIDE RECORDS SUMMARY | 2025-04-08 23:16 | XMS_ITS ---
Author Organization [facility] Address [address] [place] [address] Care Team Providers Care Driller And Broacher Name Role Phone Osmel Moe MD Primary Care Provider [phone] Gomez Raymond MD Unavailable [phone] James Suarez MD Unavailable [phone] Rmao Squires MD Unavailable [phone] James Juarez MD Unavailable [phone] Active Problems Problem Noted Date Diagnosed Date Other fatigue 04/08/2025 BCC (basal cell carcinoma), lip 07/31/2022 Overview (07/31/2022): Added automatically from request for surgery [id number] Melanocytic nevus of right upper extremity 07/31 Overview (07/31/2022): Added automatically from request for surgery [id number] Atrial fibrillation 11/08/2021 Assessment & Plan (02/07/2025 7:04 PM CDT): Chronic atrial fibrillation patient's Eliquis she continues see lead tinner she is doing well. Chest pain no palpitations no evidence of he needs CVA or TIA symptoms Assessment & Plan (06/23/2024 2:24 PM CDT): Chronic problems stable patient remains on 15 mg daily Assessment & Plan (03/10/2024 8:20 AM CDT): This is chronic stable. Please continue Xarelto. Monitor vital signs for RVR. Assessment & Plan (11/28/2022 6:04 PM TECHNICIAN BIOLOGICAL HEALTH): Patient's atrial fibrillation she applied for life insurance she was declined because of atrial fibrillation and protein in the urine. She want to make sure everything was being done regarding her problems. I explained to her atrial fibrillation importance of controlling rate as well as anticoagulation therapy. Patient is here with her daughter understood information given. Assessment & Plan (11/08/2021 1:35 PM TECHNICIAN BIOLOGICAL HEALTH): Patient is seen by lead tinner last 30 days she remains on Eliquis at this time fibrillation new onset less than 90 days ago. Patient is tolerating the Eliquis today of her pulses excellent. See her back in the next 4 months. Will continue Eliquis at this time Vertigo 10/01/2021 Assessment & Plan (10/01/2021 10:34 AM TECHNICIAN BIOLOGICAL HEALTH): Dizziness for last 2-3 days patient has [...] 09/20/2020 Assessment & Plan (09/20/2020 3:49 PM TECHNICIAN BIOLOGICAL HEALTH): Patient developed pain right shoulder after breast [...] own Assessment & Plan (08/07/2023 2:11 PM TECHNICIAN BIOLOGICAL HEALTH): No complaints of joint pains whatsoever at [...] shoulders. Assessment & Plan (09/19/2020 4:08 PM TECHNICIAN BIOLOGICAL HEALTH): Patient having joint pains multiple sites and yesterday was a neck and shoulders today's are time sometimes is a her legs.. His problems getting up and down out of chairs once she has completed a process she is a back to baseline with little to no pain. This started several months ago.. At this time as this patient on the whole [facility] it could be aggravating the problem but [...] polydipsia. Assessment & Plan (08/10/2024 3:07 PM TECHNICIAN BIOLOGICAL HEALTH): Patient advised me she had an eye exam 1 week ago no diabetic eye disease found medical records report pending. Diabetes very well controlled hemoglobin HgbA1c less than 7 for the past 4 years. Current HgbA1c is results pending Assessment & Plan (08/07/2023 2:12 PM TECHNICIAN BIOLOGICAL HEALTH): Diabetes has been stable no HgbA1c today. [...] (H) Assessment & Plan (10/02/2021 9:48 AM TECHNICIAN BIOLOGICAL HEALTH): Diet controlled, monitor glucose while inpatient and [...] 05/27 Assessment & Plan (08/10/2024 3:08 PM TECHNICIAN BIOLOGICAL HEALTH): History and physical completed patient's health risk assessment health maintenance reviewed and addressed. Her last annual exam with me this patient has been admitted to hospital for urinary tract obstruction kidney stone perinephric abscess. Of which she has recovered from. Patient is doing well she is 84 years old she has absolutely no dementia. Assessment & Plan (08/07/2023 2:07 PM TECHNICIAN BIOLOGICAL HEALTH): History and physical completed patient's health risk [...] shot was 2 weeks ago at local [facility]. Order for bone density is been [...] hours. Assessment & Plan (11/05/2018 6:23 PM TECHNICIAN BIOLOGICAL HEALTH): Patient describes a neuropathy of sensation of [...] well. Assessment & Plan (08/10/2024 2:59 PM TECHNICIAN BIOLOGICAL HEALTH): Blood pressure 134/36 patient feels well.. Gap [...] 300 mg per day down to 100. [place] some improvement but still feels fatigued worn [...] osteoarthritis Assessment & Plan (08/07/2023 2:10 PM TECHNICIAN BIOLOGICAL HEALTH): Blood pressure is excellent no change in therapy Assessment & Plan (03/15/2023 2:46 PM CDT): Hypertension remains well controlled patient tolerating medications no change in therapy Assessment & Plan (11/28/2022 6:03 PM TECHNICIAN BIOLOGICAL HEALTH): Blood pressure well controlled. Patient's concern regarding [...] therapy Assessment & Plan (11/08/2021 1:33 PM TECHNICIAN BIOLOGICAL HEALTH): Blood pressures from home reviewed there are acceptable. Patient's blood pressure today is wide range between systolic and diastolic without any precise reason. Patient's echocardiogram was reviewed there was no significant valvular disease in ejection pressure was 70-75% no change in therapy. Assessment & Plan (10/08/2021 2:13 PM TECHNICIAN BIOLOGICAL HEALTH): Blood pressure well reviewed patient now on new medication hydralazine and amlodipine again he has a follow-up appointment cardiology in the next 24 hours. No changes made in medications today Assessment & Plan (10/02/2021 9:48 AM TECHNICIAN BIOLOGICAL HEALTH): Blood pressure has been severely elevated since [...] therapy. Assessment & Plan (09/19/2020 4:09 PM TECHNICIAN BIOLOGICAL HEALTH): Blood pressure is slightly elevated today no [...] appointment. Assessment & Plan (11/05/2018 6:25 PM TECHNICIAN BIOLOGICAL HEALTH): Hypertension elevated today will continue reserves check [...] profile. Assessment & Plan (09/19/2020 4:11 PM TECHNICIAN BIOLOGICAL HEALTH): Patient's advised to stop her medicine with [...] elevation of the calcium level in a physical plant manager would like for to get repeated in [...] 25 Assessment & Plan (08/10/2024 2:56 PM TECHNICIAN BIOLOGICAL HEALTH): Patient advised me abscesses resolved through Wound [...] 03/15/2023 Assessment & Plan (11/28/2022 6:06 PM TECHNICIAN BIOLOGICAL HEALTH): Advised patient use lactate when using milk products. For information from up-to-date today regarding high-fiber diet. Not having any blood in his stool or mucus in his stools. She is not having overt diarrhea. Kidney stones 12/12/2021 03/15/2024 Overview (12/12/2021): Added automatically from request for surgery [id number] Gross hematuria 12/12/2021 03/30/2024 Overview (12/12/2021): Added automatically from request for surgery [id number] Assessment & Plan (03/22/2024 10:30 AM CDT): [...] procedure Assessment & Plan (10/08/2021 1:43 PM TECHNICIAN BIOLOGICAL HEALTH): Hospital follow-up admission date 10/02/2021 discharge date 10/05/2021.. Diagnosis acute cystitis with hematuria. 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 Patient has been given referral to [facility] urologist a few weeks. Patient's [...] 022 Assessment & Plan (10/02/2021 9:49 AM TECHNICIAN BIOLOGICAL HEALTH): Seen on CT on presentation. Does not seem to be hemodynamically significant. Echocardiogram ordered and Cardiology consulted. Right renal mass 10/02/2021 04/01/2024 Assessment & Plan (10/08/2021 2:12 PM TECHNICIAN BIOLOGICAL HEALTH): Referral to urologist sent by this office. Assessment & Plan (10/02/2021 9:47 AM TECHNICIAN BIOLOGICAL HEALTH): Seen on CT on presentation. CT urogram ordered per radiology recs. Urology consulted. Nausea and vomiting in adult 10/01/2021 03/15/2023 Assessment & Plan (10/08/2021 1:45 PM TECHNICIAN BIOLOGICAL HEALTH): Nausea vomiting resolved once UTI was treated Assessment & Plan (10/01/2021 10:33 AM TECHNICIAN BIOLOGICAL HEALTH): Nausea and vomiting started around September 09 is gotten progressively worse. Patient cannot hold down solids. Denies any blood in his stools or vomiting blood. No vomiting or bowel. No abdominal pain. Patient's unstable in appearance her typical self referred to emergency room for hospital admission EGD lab workup dehydration etc.. Acute cystitis with hematuria 10/01/2021 02/28/2022 Assessment & Plan (10/08/2021 1:44 PM TECHNICIAN BIOLOGICAL HEALTH): Patient's referral with Urology cystoscopy is scheduled heart to be done. 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 Discovered on recent hospitalization Assessment & Plan (10/02/2021 9:52 AM TECHNICIAN BIOLOGICAL HEALTH): UA on presentation showed pyuria with 4+ leuk esterase and 3+ bacteria present. Patient's lethargy and decreased appetite are likely symptoms infection, though it seems unlikely to explain the nausea, vomiting, and diarrhea that were present for approximately the past 2 weeks in resolved 3 days ago. A COVID-19 test at [facility] pharmacy in [place] was reportedly negative, but the symptoms are [...] 04/24/2021 Assessment & Plan (08/21/2020 3:48 PM TECHNICIAN BIOLOGICAL HEALTH): Patient having pain 3 4 days a [...] syndrome on left 01/07/2018 12/02/2019 Overview (01/07/2018): [id number] discomfort no surgical intervention needed if problems [...] date. Assessment & Plan (11/05/2018 6:25 PM TECHNICIAN BIOLOGICAL HEALTH): Data hemoglobin HgbA1c today patient is having [...]
--- OUTSIDE RECORDS SUMMARY | 2025-04-08 23:16 | XMS_ITS | Encounter Summary ---
Author Organization [facility] Address [address] [place] [address] Phone Care Team Providers Care Police Crime Scene Technician Name Role Phone Osmel Moe MD Primary Care Provider + [phone] Gomez Raymond MD Unavailable [phone] James Suarez MD Unavailable [phone] Ramo Squires MD Unavailable [phone] James Juarez MD Unavailable [phone] Sera Vieira RN Unavailable [phone] Encounter Details Date Type Department Care Team (Late st Contact Info) Description 02/27/2023 Orders Only [facility] [address] [place] [address] Scanning, Provider Social History Tobacco [...] week 10/08/2021 How often do you attend [facility] or spiritism services? More than 4 times per year 10/08/2021 Do you belong to any clubs o r organizations such as episcopalian groups, unions, fraternal or athletic groups, or [...] place to sleep or slept in a skilled nursing (including now)? No 10/16/2021 Personal Safety Answer Date Recorded Have you ever been in or are you currently in a harmful physical or emotional relationship or is someone making you feel afraid or unsafe? 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 Gender Identity Not on file Sexual Orientation [...] documented as of this encounter Care Teams Police Crime Scene Technician Relationship Specialty Start Date End Date Osmel Moe MD PCP - General 12/20/16 Gomez Raymond MD Consulting Physician Urology 10/04/21 James Suarez MD Consulting Physician Cardiovascular Disease 10/05/21 Ramo Squires MD Consulting Physician Urology 01/23/22 James Juarez MD Referring Physician Dermatology 03/03/23 Sera Vieira RN [address] [place] [address] [address] MERIDA [address] [place] [id number] Smoke Room Operator 04/08/24 05/06/24 documented as of this encounter
--- OUTSIDE RECORDS SUMMARY | 2025-04-08 23:16 | XMS_ITS | Referral Summary ---
Author Organization [facility] Address [address] [place] [address] Care Team Providers Care Threshing Operator Name Role Phone Osmel Moe MD Primary Care Provider + [phone] Gomez Raymond MD Unavailable [phone] James Suarez MD Unavailable [phone] Ramo Squires MD Unavailable [phone] James Juarez MD Unavailable [phone] Encounters Date Type Department Care Team Description 04/08/2025 Telephone [facility] [address] [place] [address] Yoni Redmond MD 04/08/2025 2:20 PM CDT Lab [facility] [address] [place] [address] Fatigue, unspecified type; Vertigo; Diabetes mellitus without complication (HCC) 04/08/2025 1:00 PM CDT Office Visit [facility] [address] [place] [address] Melony Oliveros NP Other fatigue (Primary Dx); Vertigo; Essential hypertension; Paroxysmal atrial fibrillation (HCC); Diabetes mellitus without complication (HCC); BCC (basal cell carcinoma), lip 04/07/2025 Telephone [facility] [address] [place] [phone] Osmel Meo MD UTI 03/08/2025 Telephone [facility] [address] [facility] [address] [place] [address] Tanya Alanis RN 02/07/2025 1:00 PM CDT Office Visit [facility] [address] [place] [phone] Osmel Moe MD Diabetes mellitus without complication (HCC) (Primary Dx); Chronic atrial fibrillation (HCC); Osteoarthritis involving multiple joints on both sides of body 02/01/2025 Orders Only [facility] Health Information Management [address] [place] [address] Osmel Moe MD from Last 3 Months [...] (07/31/2022): Added automatically from request for surgery [id number] Melanocytic nevus of right upper extremity 07/31 Overview (07/31/2022): Added automatically from request for surgery [id number] Atrial fibrillation 11/08/2021 Assessment & Plan (02/07/2025 7:04 PM CDT): Chronic atrial fibrillation patient's Eliquis she continues see spindle plumber she is doing well. Chest pain no palpitations no evidence of he needs CVA or TIA symptoms Assessment & Plan (06/23/2024 2:24 PM CDT): Chronic problems stable patient remains on 15 mg daily Assessment & Plan (03/10/2024 8:20 AM CDT): This is chronic stable. Please continue Xarelto. Monitor vital signs for RVR. Assessment & Plan (11/28/2022 6:04 PM WOOD HEEL FLAP TRIMMER): Patient's atrial fibrillation she applied for life insurance she was declined because of atrial fibrillation and protein in the urine. She want to make sure everything was being done regarding her problems. I explained to her atrial fibrillation importance of controlling rate as well as anticoagulation therapy. Patient is here with her daughter understood information given. Assessment & Plan (11/08/2021 1:35 PM WOOD HEEL FLAP TRIMMER): Patient is seen by spindle plumber last 30 days she remains on Eliquis at this time fibrillation new onset less than 90 days ago. Patient is tolerating the Eliquis today of her pulses excellent. See her back in the next 4 months. Will continue Eliquis at this time Vertigo 10/01/2021 Assessment & Plan (10/01/2021 10:34 AM WOOD HEEL FLAP TRIMMER): Dizziness for last 2-3 days patient has [...] 09/20/2020 Assessment & Plan (09/20/2020 3:49 PM WOOD HEEL FLAP TRIMMER): Patient developed pain right shoulder after breast [...] own Assessment & Plan (08/07/2023 2:11 PM WOOD HEEL FLAP TRIMMER): No complaints of joint pains whatsoever at [...] day helps.. Recommend patient go to a [facility] physical therapy see if stretching exercise may help her leg and possibly a shoulders. Assessment & Plan (09/19/2020 4:08 PM WOOD HEEL FLAP TRIMMER): Patient having joint pains multiple sites and [...] polydipsia. Assessment & Plan (08/10/2024 3:07 PM WOOD HEEL FLAP TRIMMER): Patient advised me she had an eye exam 1 week ago no diabetic eye disease found medical records report pending. Diabetes very well controlled hemoglobin HgbA1c less than 7 for the past 4 years. Current HgbA1c is results pending Assessment & Plan (08/07/2023 2:12 PM WOOD HEEL FLAP TRIMMER): Diabetes has been stable no HgbA1c today. [...] (H) Assessment & Plan (10/02/2021 9:48 AM WOOD HEEL FLAP TRIMMER): Diet controlled, monitor glucose while inpatient and [...] 05/27 Assessment & Plan (08/10/2024 3:08 PM WOOD HEEL FLAP TRIMMER): History and physical completed patient's health risk assessment health maintenance reviewed and addressed. Her last annual exam with me this patient has been admitted to hospital for urinary tract obstruction kidney stone perinephric abscess. Of which she has recovered from. Patient is doing well she is 84 years old she has absolutely no dementia. Assessment & Plan (08/07/2023 2:07 PM WOOD HEEL FLAP TRIMMER): History and physical completed patient's health risk [...] [facility] Order for bone density is been placed. [...] hours. Assessment & Plan (11/05/2018 6:23 PM WOOD HEEL FLAP TRIMMER): Patient describes a neuropathy of sensation of [...] well. Assessment & Plan (08/10/2024 2:59 PM WOOD HEEL FLAP TRIMMER): Blood pressure 134/36 patient feels well.. Gap [...] 300 mg per day down to 100. [place] some improvement but still feels fatigued worn [...] osteoarthritis Assessment & Plan (08/07/2023 2:10 PM WOOD HEEL FLAP TRIMMER): Blood pressure is excellent no change in therapy Assessment & Plan (03/15/2023 2:46 PM CDT): Hypertension remains well controlled patient tolerating medications no change in therapy Assessment & Plan (11/28/2022 6:03 PM WOOD HEEL FLAP TRIMMER): Blood pressure well controlled. Patient's concern regarding [...] therapy Assessment & Plan (11/08/2021 1:33 PM WOOD HEEL FLAP TRIMMER): Blood pressures from home reviewed there are acceptable. Patient's blood pressure today is wide range between systolic and diastolic without any precise reason. Patient's echocardiogram was reviewed there was no significant valvular disease in ejection pressure was 70-75% no change in therapy. Assessment & Plan (10/08/2021 2:13 PM WOOD HEEL FLAP TRIMMER): Blood pressure well reviewed patient now on new medication hydralazine and amlodipine again he has a follow-up appointment cardiology in the next 24 hours. No changes made in medications today Assessment & Plan (10/02/2021 9:48 AM WOOD HEEL FLAP TRIMMER): Blood pressure has been severely elevated since [...] therapy. Assessment & Plan (09/19/2020 4:09 PM WOOD HEEL FLAP TRIMMER): Blood pressure is slightly elevated today no [...] appointment. Assessment & Plan (11/05/2018 6:25 PM WOOD HEEL FLAP TRIMMER): Hypertension elevated today will continue reserves check [...] profile. Assessment & Plan (09/19/2020 4:11 PM WOOD HEEL FLAP TRIMMER): Patient's advised to stop her medicine with [...] elevation of the calcium level in a development writer would like for to get repeated in [...] 25 Assessment & Plan (08/10/2024 2:56 PM WOOD HEEL FLAP TRIMMER): Patient advised me abscesses resolved through Wound [...] 03/15/2023 Assessment & Plan (11/28/2022 6:06 PM WOOD HEEL FLAP TRIMMER): Advised patient use lactate when using milk products. For information from up-to-date today regarding high-fiber diet. Not having any blood in his stool or mucus in his stools. She is not having overt diarrhea. Kidney stones 12/12/2021 03/15/2024 Overview (12/12/2021): Added automatically from request for surgery [id number] Gross hematuria 12/12/2021 03/30/2024 Overview (12/12/2021): Added automatically from request for surgery [id number] Assessment & Plan (03/22/2024 10:30 AM CDT): [...] procedure Assessment & Plan (10/08/2021 1:43 PM WOOD HEEL FLAP TRIMMER): Hospital follow-up admission date 10/02/2021 discharge date 10/05/2021.. Diagnosis acute cystitis with hematuria. 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 Patient has been given referral to [facility] urologist a few weeks. Patient's blood [...] 022 Assessment & Plan (10/02/2021 9:49 AM WOOD HEEL FLAP TRIMMER): Seen on CT on presentation. Does not seem to be hemodynamically significant. Echocardiogram ordered and Cardiology consulted. Right renal mass 10/02/2021 04/01/2024 Assessment & Plan (10/08/2021 2:12 PM WOOD HEEL FLAP TRIMMER): Referral to urologist sent by this office. Assessment & Plan (10/02/2021 9:47 AM WOOD HEEL FLAP TRIMMER): Seen on CT on presentation. CT urogram ordered per radiology recs. Urology consulted. Nausea and vomiting in adult 10/01/2021 03/15/2023 Assessment & Plan (10/08/2021 1:45 PM WOOD HEEL FLAP TRIMMER): Nausea vomiting resolved once UTI was treated Assessment & Plan (10/01/2021 10:33 AM WOOD HEEL FLAP TRIMMER): Nausea and vomiting started around September 09 is gotten progressively worse. Patient cannot hold down solids. Denies any blood in his stools or vomiting blood. No vomiting or bowel. No abdominal pain. Patient's unstable in appearance her typical self referred to emergency room for hospital admission EGD lab workup dehydration etc.. Acute cystitis with hematuria 10/01/2021 02/28/2022 Assessment & Plan (10/08/2021 1:44 PM WOOD HEEL FLAP TRIMMER): Patient's referral with Urology cystoscopy is scheduled heart to be done. 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 Discovered on recent hospitalization Assessment & Plan (10/02/2021 9:52 AM WOOD HEEL FLAP TRIMMER): UA on presentation showed pyuria with 4+ leuk esterase and 3+ bacteria present. Patient's lethargy and decreased appetite are likely symptoms infection, though it seems unlikely to explain the nausea, vomiting, and diarrhea that were present for approximately the past 2 weeks in resolved 3 days ago. [facility] [place] was reportedly negative, but the symptoms are [...] 04/24/2021 Assessment & Plan (08/21/2020 3:48 PM WOOD HEEL FLAP TRIMMER): Patient having pain 3 4 days a [...] syndrome on left 01/07/2018 12/02/2019 Overview (01/07/2018): Goie-ua-tagbzsgr discomfort no surgical intervention needed if problems [...] date. Assessment & Plan (11/05/2018 6:25 PM WOOD HEEL FLAP TRIMMER): Data hemoglobin HgbA1c today patient is having [...] drink = 0.6 oz pur e alcohol) [facility] Asantiities Answer Date Recorded In the past 12 months has [employer], gas, oil, or water [employer] threatened to shut off services in your [...] often do you attend chur ch or gnosticist services? 1 to 4 times per year 04/08/2024 Do you belong to any clubs o r organizations such as buddhism groups, unions, fraternal or athletic groups, or [...] place to sleep or slept in a snf (including now)? No 10/16/2021 Housing Stability Vital Sign Answer Kole e Recorded In the last 12 months, was t here a time when you were not able to pay the mortgage or rent on time? No 04/08/2024 In the past 12 months, how m any times have you moved where you were living? 1 04/08/2024 At any time in the past 12 m [facility], were you homeless or living in a snf (including now)? No 04/08/2024 Personal Safety Answer Date Recorded Have you ever been in or are you currently in a harmful physical or emotional relationship or is someone making you feel afraid or unsafe? Patient unable to answer 02/28/2024 Comments No Sex and Gender Information Value Date Recorded Sex Assigned at Not on file Legal Sex Female 3:07 PM WOOD HEEL FLAP TRIMMER Gender Identity Not on file Sexual Orientation [...] PM CDT Diabetes mellitus without complication (HCC) CHOLESTEROL, LDL, DIRECT Routine 04/08/2025 2:13 PM CDT Fatigue, unspecified type Vertigo THYROID FUNCTION CASCADE Routine 04/08/2025 2:13 PM CDT Fatigue, unspecified type Vertigo SCAN - RADIOLOGY/IMAGING 02/01/2025 DEXA AXIAL SKELETON BONE DENSITY 1 OR MORE SITES Schedule Routine, Read Routine (OP Routine) 10/05/2024 11:46 AM WOOD HEEL FLAP TRIMMER Menopause HM DIABETES EYE EXAM Routine 08/16/2024 1:31 PM WOOD HEEL FLAP TRIMMER LIPID PANEL Routine 08/10/2024 11:33 AM WOOD HEEL FLAP TRIMMER Medicare annual wellness visit, subsequent Mixed hyperlipidemia ALBUMIN CREATININE RATIO, URINE Routine 08/10/2024 11:33 AM WOOD HEEL FLAP TRIMMER Medicare annual wellness visit, subsequent Diabetes mellitus [...] was last reviewed 2021. Testing performed by: [facility], [address] [place] [address], [place]., [address] Blood 04/08/2025 2:13 PM CDT 04/08/2025 7:37 PM CDT us Melony Oliveros NP LAB BLOOD ORDERABLES Final Resul t QUY[facility] [address] [facility] [place] [address] * (ABNORMAL) Differential, auto (04/08/2025 2:13 PM CDT) Pathologist [facility] Neutrophil abs 8.27(H) 1.50 - 6.50 K/cumm Comment:Testing performed by : [address] [address] Imm gran abs 0.05 0.00 - 0.10 K/cumm CERNER CH Comment:Testing performed by : [address], [address] Lymphocyte abs 1.75 0.80 - 3.30 K/cumm CERNER CH Comment:Testing performed by : [address], [address] Monocyte abs 0.86(H) 0.20 - 0.80 K/cumm CERNER CH Comment:Testing performed by : [address], [address] Eosinophil abs 0.07 0.00 - 0.50 K/cumm CERNER CH Comment:Testing performed by : [address], [address] Basophil abs 0.06 0.00 - 0.10 K/cumm CERNER CH Comment:Testing performed by : [address], [address] Neutrophil pct 74.8 % CERNER CH Comment: Interpretive Data Percent cell count reference ranges are not reported, since discordance with absolute values may lead to misinterpretation of CBC data. Current Interpretive Data was last revised on 2017. Testing performed by: [address], [address] Imm gran pct 0.5 % CERNER CH Comment: Interpretive Data Percent cell count reference ranges are not reported, since discordance with absolute values may lead to misinterpretation of CBC data. Current Interpretive Data was last revised on 2017. Testing performed by: [address] [address] Lymphocyte pct 15.8 % CERNER CH Comment: Interpretive Data Percent cell count reference ranges are not reported, since discordance with absolute values may lead to misinterpretation of CBC data. Current Interpretive Data was last revised on 2017. Testing performed by: [address], [address] Monocyte pct 7.8 % CERNER Comment: Interpretive Data Percent cell count reference ranges are not reported, since discordance with absolute values may lead to misinterpretation of CBC data. Current Interpretive Data was last revised on 2017. Testing performed by: [facility], [address] [place] [address]., [address] Eosinophil pct 0.6 % CERNER Comment: Interpretive Data Percent cell count reference ranges are not reported, since discordance with absolute values may lead to misinterpretation of CBC data. Current Interpretive Data was last revised on 2017. Testing performed by: [facility], [address] [place] [address]., [address] Basophil pct 0.5 % CERNER Comment: Interpretive Data Percent cell count reference ranges are not reported, since discordance with absolute values may lead to misinterpretation of CBC data. Current Interpretive Data was last revised on 2017. Testing performed by: [address] [address] Blood 04/08/2025 2:13 PM CDT 04/08/2025 7:30 PM CDT Melony Oliveros CILNICAL SCIENTIST LAB BLOOD ORDERABLES Final Resul t Performing Organization Address City/[facility]/ZIP Co de Phone Number QUYNH [address] [place] [address] * (ABNORMAL) Thyroid Function [place] (04/08/2025 2:13 PM CDT) TSH 4.26(H) 0.30 - 4.20 mcIUnit/mL Comment:Testing performed by : [address] [address] Blood 04/08/2025 2:13 PM CDT 04/08/2025 7:30 PM CDT Melony Oliveros CILNICAL SCIENTIST LAB BLOOD ORDERABLES Final Resul t QUYNH [address] [address] [employer] [place] [address] * (ABNORMAL) CBC with auto differential (04/08/2025 2:13 PM CDT) [facility] WBC 11.06(H) 3.80 - 9.90 K/cumm Comment:Testing performed by : [address], [address] Hgb 5.1(C) 11.9 - 15.5 g/dL CERNER CH Comment: This result has been called to Dr. Yoni Redmond by [id number] on 04/08/2025 20:02:54, and has been read back. Testing performed by: [address], [address] Hct 17.8(L) 35.6 - 45.5 % CERNER CH Comment:Testing performed by : [address], [address] Plt 504(H) 150 - 400 K/cumm CERNER CH Comment:Testing performed by : [address], [address] MPV 11.3 9.1 - 12.3 fL CERNER CH Comment:Testing performed by : [address], [address] RBC 1.82(L) 3.90 - 5.20 M/cumm CERNER CH Comment:Testing performed by : [address], [address] MCV 97.8(H) 81.3 - 96.4 fL CERNER CH Comment:Testing performed by : [address], [address] MCH 28.0 27.1 - 33.3 pg CERNER CH Comment:Testing performed by : [address], [address] MCHC 28.7(L) 32.3 - 35.7 g/dL CERNER CH Comment:Testing performed by : [address], [address] RDW CV 16.7(H) 11.1 - 14.9 % CERNER CH Comment:Testing performed by : [address], [address] RDW SD 59.8(H) 35.7 - 48.1 fL QUYNH Comment:Testing performed by : [facility], [address] [place] [address]., [address] NRBC abs 0.02(H) 0.00 - 0.01 K/cumm QUYNH Comment:Testing performed by : [facility], [address] [place] [address]., [address] Blood 04/08/2025 2:13 PM CDT 04/08/2025 7:30 PM CDT Melony Oliveros CILNICAL SCIENTIST LAB BLOOD ORDERABLES Final Resul t Performing Organization Address [facility] Co de Phone Number [place] [phone] [facility] Department [place] [address] * T4, free (04/08/2025 2:13 PM CDT) Free T4 1.30 0.90 - 1.70 ng/dL Comment:Testing performed by : [facility], [address] [place] [address]., [address] Blood 04/08/2025 2:13 PM CDT 04/08/2025 7:37 PM CDT Melony Oliveros CILNICAL SCIENTIST LAB BLOOD ORDERABLES Final Resul t Performing Organization Address [facility] de Phone Number [place] [phone] [facility] [place] [address] * Cholesterol, LDL, direct (04/08/2025 2:13 PM [...] revised on 2018. Testing performed by: [address] [address] Blood 04/08/2025 2:13 PM CDT 04/08/2025 7:30 PM CDT Melony Oliveros CILNICAL SCIENTIST LAB BLOOD ORDERABLES Final Resul t Performing Organization Address [facility] de Phone Number [facility] [address] [facility] [place] [address] * Hemoglobin A1c (04/08/2025 2:13 PM CDT) Hgb A1C 4.7 4.0 - 5.6 % Comment:Testing performed by : [address] [address] Estimated Average Glucose 88 mg/dL QUYNH Comment: The ADA recommends reporting an estimated Average Glucose (eAG) with all Hemoglobin A1c results using the equation derived from a study of 507 normal and diabetic adults. Minority populations were underrepresented and children were not included. (Diabetes Care 31:5959-9739, 2008). The eAG is not equivalent to a fasting glucose. Testing performed by: [address] [address] Blood 04/08/2025 2:13 PM CDT 04/08/2025 7:30 PM CDT Melony Oliveros CILNICAL SCIENTIST LAB BLOOD ORDERABLES Final Resul t Performing Organization Address [facility] de Phone Number [facility] [address] [facility] [place] [address] * (ABNORMAL) Comprehensive metabolic panel (04/08/2025 2:13 PM CDT) Sodium 132(L) 135 - 145 mmol/L Comment:Testing performed by : [address] [address] Potassium, pl 5.7(H) 3.3 - 4.9 mmol/L QUYNH Comment:Testing performed by : [address] [place]., [address] Chloride 106 97 - 110 mmol/L CERNER CH Comment:Testing performed by : [facility], [address] [place] [address]., [address] CO2 13(L) 22 - 32 mmol/L CERNER CH Comment:Testing performed by : [address], [address] Anion gap 13 2 - 15 mmol/L CERNER CH Comment:Testing performed by : [address], [address] BUN 42(H) 6 - 25 mg/dL CERNER CH Comment:Testing performed by : [address], [address] Creatinine 1.37(H) 0.60 - 1.10 mg/dL CERNER CH Comment:Testing performed by : [address], [address] Glucose 124 70 - 199 mg/dL CERNER [...] last revised 2022. Testing performed by: [address] [address] Calcium 10.2 8.5 - 10.3 mg/dL CERNER CH Comment:Testing performed by : [address] [address] Bilirubin, total 0.2 0.1 - 1.2 mg/dL CERNER CH Comment:Testing performed by : [address] [address] Protein, pl 6.1(L) 6.5 - 8.5 g/dL CERNER CH Comment:Testing performed by : [address], [address] Albumin 3.6 3.5 - 5.0 g/dL CERNER Comment:Testing performed by : [facility], [address] [place] [address]., [address] Alk phos 120 40 - 130 Units/L [facility] Comment:Testing performed by : [facility], [address] [place] [address]., [address] ALT 13 7 - 45 Units/L CERNER Comment:Testing performed by : [facility], [address] [place] [address], [address] AST 21 10 - 45 Units/L [facility] Comment:Testing performed by : [facility], [address] [place] [address]., [address] Blood 04/08/2025 2:13 PM CDT 04/08/2025 7:30 PM CDT us Melony Oliveros CILNICAL SCIENTIST LAB BLOOD ORDERABLES Final Resul t [address] Department [place] [address] * SCAN - RADIOLOGY/IMAGING (02/01/2025) Anatomical Region Laterality Modality Other us Osmel Moe MD Final Resu lt * Dexa Axial Skeleton Bone Density 1 or 2 Site (10/05/2024 11:46 AM WOOD HEEL FLAP TRIMMER) Anatomical Region Laterality Modality Body N/A Other 10/05/2024 8:41 PM WOOD HEEL FLAP TRIMMER Narrative 10/05/2024 8:42 PM WOOD HEEL FLAP TRIMMER EXAM DESCRIPTION: DEXA AXIAL SKELETON BONE DENSITY 1 OR MORE SITES REASON FOR STUDY: 84 y/o year old F with given history of: menopause Osteoporosis screening Post menopausal Cut 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 MF: ROSA Report ID: [id number] Reading Location: [id number] Procedure Note Abelardo Rooney MD - 10/05/2024 EXAM DESCRIPTION: DEXA AXIAL SKELETON BONE DENSITY 1 OR MORE SITES REASON FOR STUDY: 84 y/o year old F with given history of: menopause Osteoporosis screening Post menopausal Cut Pressman/Model: [employer] Liaison (S/N [id number]) CLINICAL INFORMATION: Current height: 62.5 inches Maximum [...] Abelardo Rooney M.D. MF: ROSA Report ID: [id number] Reading Location: [place] [address] Osmel Moe MD IMG DXA PROCEDURES Final R esult * HM DIABETES EYE EXAM (08/16/2024 1:31 PM WOOD HEEL FLAP TRIMMER) Pathologist [facility] SCRIBED DIABETIC DILATED EYE EXAM Normal Historical Provider HEALTH MAINTENANCE Final Result * (ABNORMAL) Albumin Creatinine Ratio, Urine (08/10/2024 11:33 AM WOOD HEEL FLAP TRIMMER) Pathologist [facility] Albumin Ur 91.5 mg/L Comment: Interpretive Data No reference range established. Current interpretive data was last revised 2019. Testing performed by: [address] [address] Creatinine Ur 89.8 mg/dL [facility] Comment: Interpretive Data No reference range established. Current interpretive data was last revised 2019. Testing performed by: [address] [address] Albumin Creatinine Ratio, Ur 102(H) 1 - 29 mg/g [facility] Comment:Testing performed by : [address] [address] Urine 08/10/2024 11:3 3 AM WOOD HEEL FLAP TRIMMER 08/10/2024 5:40 PM WOOD HEEL FLAP TRIMMER Osmel Moe MD LAB URINE ORDERABLES Final Result [address] Department [place] [address] * Lipid panel (08/10/2024 11:33 AM WOOD HEEL FLAP TRIMMER) Pathologist [facility] Cholesterol 192 30 - 199 mg/dL Comment: [...] last revised on 2018. Testing performed by: [facility], [address] [place] [address]., [address] Triglycerides 105 <=149 mg/dL QUY[facility] Comment: Interpretive [...] last revised on 2018. Testing performed by: [facility], [address] [place] [address]., [id number] HDL 46 >=40 mg/dL [facility] Comment: Interpretive Data Ages < or = [...] last revised on 2018. Testing performed by: [facility], [address] [place] [address]., [id number] LDL, calculated 127 <=129 mg/dL [facility] Comment: [...] revised on 2024. Testing performed by: [address] [id number] Non-HDL Cholesterol 146 mg/dL [facility] Comment: [...] revised on 2018. Testing performed by: [address] [id number] Chol/HDL ratio 4 [facility] Comment:Testing performed by : [address] [address] Blood 08/10/2024 11:3 3 AM WO[employer] HE[employer] FLAP TRIMMER 08/10/2024 5:40 PM WOOD HEEL FLAP TRIMMER us Osmel Moe MD LAB BLOOD ORDERABLES Final Result [facility] [id number] [place] [address] [place] [address] from Last 3 Months or Most Recently Relevant to Health Maintenance Insurance [employer] MEDICARE PPO MEDICARE [facility] ESCAPESwithYOU MEDICARE PPO [employer]APESwith[employer] MEDICARE PPO Advance Directives For more information, please contact: [phone] * Full Code (Latest Code Status on File) Date Activated Date Inactivated Comments 10/02/2021 12:09 AM 10/05/2021 8:30 PM Care Teams Threshing Operator Relationship Specialty Start Date End Date Osmel Moe MD PCP - General 12/20/16 Gomez Raymond MD Consulting Physician Urology 10/04/21 James Suarez MD Consulting Physician Cardiovascular Disease 10/05/21 Ramo Squires MD Consulting Physician Urology 01/23/22 James Juarez MD Referring Physician Dermatology 03/03/23
--- OUTSIDE RECORDS SUMMARY | 2025-04-08 23:16 | XMS_ITS | Clinical Summary ---
Author Organization [facility] Address [address] [place] [address] Care Team Providers Care Construction Operations Manager Name Role Phone Osmel Moe MD Primary Care Provider [phone] Gomez Raymond MD Unavailable [phone] James Suarez MD Unavailable [phone] Ramo Squires MD Unavailable James Juarez MD Unavailable [phone] Allergies Active Allergy Reactions Criticality Noted Date [...] (07/31/2022): Added automatically from request for surgery [id number] Melanocytic nevus of right upper extremity 07/31 Overview (07/31/2022): Added automatically from request for surgery [id number] Atrial fibrillation 11/08/2021 Assessment & Plan (02/07/2025 7:04 PM CDT): Chronic atrial fibrillation patient's Eliquis 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 Chest pain no palpitations no evidence of he needs CVA or TIA symptoms Assessment & Plan (06/23/2024 2:24 PM CDT): Chronic problems stable patient remains on 15 mg daily Assessment & Plan (03/10/2024 8:20 AM CDT): This is chronic stable. Please continue Xarelto. Monitor vital signs for RVR. Assessment & Plan (11/28/2022 6:04 PM ACT ENGLISH TUTOR): Patient's atrial fibrillation she applied for life insurance she was declined because of atrial fibrillation and protein in the urine. She want to make sure everything was being done regarding her problems. I explained to her atrial fibrillation importance of controlling rate as well as anticoagulation therapy. Patient is here with her daughter understood information given. Assessment & Plan (11/08/2021 1:35 PM ACT ENGLISH TUTOR): Patient is seen by farmworker grain last 30 days she remains on Eliquis at this time fibrillation new onset less than 90 days ago. Patient is tolerating the Eliquis today of her pulses excellent. See her back in the next 4 months. Will continue Eliquis at this time Vertigo 10/01/2021 Assessment & Plan (10/01/2021 10:34 AM ACT ENGLISH TUTOR): Dizziness for last 2-3 days patient has [...] 09/20/2020 Assessment & Plan (09/20/2020 3:49 PM ACT ENGLISH TUTOR): Patient developed pain right shoulder after breast [...] own Assessment & Plan (08/07/2023 2:11 PM ACT ENGLISH TUTOR): No complaints of joint pains whatsoever at [...] day helps.. Recommend patient go to a [facility] physical therapy see if stretching exercise may help her leg and possibly a shoulders. Assessment & Plan (09/19/2020 4:08 PM ACT ENGLISH TUTOR): Patient having joint pains multiple sites and yesterday was a neck and shoulders today's are time sometimes is a her legs.. His problems getting up and down out of chairs once she has completed a process she is a back to baseline with little to no pain. This started several months ago.. At this time as this patient on the whole [facility] it could be aggravating the problem but [...] polydipsia. Assessment & Plan (08/10/2024 3:07 PM ACT ENGLISH TUTOR): Patient advised me she had an eye exam 1 week ago no diabetic eye disease found medical records report pending. Diabetes very well controlled hemoglobin HgbA1c less than 7 for the past 4 years. Current HgbA1c is results pending Assessment & Plan (08/07/2023 2:12 PM ACT ENGLISH TUTOR): Diabetes has been stable no HgbA1c today. [...] (H) Assessment & Plan (10/02/2021 9:48 AM ACT ENGLISH TUTOR): Diet controlled, monitor glucose while inpatient and [...] 05/27 Assessment & Plan (08/10/2024 3:08 PM ACT ENGLISH TUTOR): History and physical completed patient's health risk assessment health maintenance reviewed and addressed. Her last annual exam with me this patient has been admitted to hospital for urinary tract obstruction kidney stone perinephric abscess. Of which she has recovered from. Patient is doing well she is 84 years old she has absolutely no dementia. Assessment & Plan (08/07/2023 2:07 PM ACT ENGLISH TUTOR): History and physical completed patient's health risk [...] shot was 2 weeks ago at local [facility]. Order for bone density is been placed. [...] hours. Assessment & Plan (11/05/2018 6:23 PM ACT ENGLISH TUTOR): Patient describes a neuropathy of sensation of [...] well. Assessment & Plan (08/10/2024 2:59 PM ACT ENGLISH TUTOR): Blood pressure 134/36 patient feels well.. Gap [...] 300 mg per day down to 100. [place] some improvement but still feels fatigued worn [...] osteoarthritis Assessment & Plan (08/07/2023 2:10 PM ACT ENGLISH TUTOR): Blood pressure is excellent no change in therapy Assessment & Plan (03/15/2023 2:46 PM CDT): Hypertension remains well controlled patient tolerating medications no change in therapy Assessment & Plan (11/28/2022 6:03 PM ACT ENGLISH TUTOR): Blood pressure well controlled. Patient's concern regarding [...] therapy Assessment & Plan (11/08/2021 1:33 PM ACT ENGLISH TUTOR): Blood pressures from home reviewed there are acceptable. Patient's blood pressure today is wide range between systolic and diastolic without any precise reason. Patient's echocardiogram was reviewed there was no significant valvular disease in ejection pressure was 70-75% no change in therapy. Assessment & Plan (10/08/2021 2:13 PM ACT ENGLISH TUTOR): Blood pressure well reviewed patient now on new medication hydralazine and amlodipine again he has a follow-up appointment cardiology in the next 24 hours. No changes made in medications today Assessment & Plan (10/02/2021 9:48 AM ACT ENGLISH TUTOR): Blood pressure has been severely elevated since [...] therapy. Assessment & Plan (09/19/2020 4:09 PM ACT ENGLISH TUTOR): Blood pressure is slightly elevated today no [...] appointment. Assessment & Plan (11/05/2018 6:25 PM ACT ENGLISH TUTOR): Hypertension elevated today will continue reserves check [...] profile. 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 For information from up-to-date today regarding high-fiber diet. Not having any blood in his stool or mucus in his stools. She is not having overt diarrhea. Kidney stones 12/12/2021 03/15/2024 Overview (12/12/2021): Added automatically from request for surgery [id number] Gross hematuria 12/12/2021 03/30/2024 Overview (12/12/2021): Added automatically from request for surgery [id number] Assessment & Plan (03/22/2024 10:30 AM CDT): [...] procedure Assessment & Plan (10/08/2021 1:43 PM ACT ENGLISH TUTOR): Hospital follow-up admission date 10/02/2021 discharge date 10/05/2021.. Diagnosis acute cystitis with hematuria. 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 Patient has been given referral to [facility] urologist a few weeks. Patient's blood pressure [...] 022 Assessment & Plan (10/02/2021 9:49 AM ACT ENGLISH TUTOR): Seen on CT on presentation. Does not seem to be hemodynamically significant. Echocardiogram ordered and Cardiology consulted. Right renal mass 10/02/2021 04/01/2024 Assessment & Plan (10/08/2021 2:12 PM ACT ENGLISH TUTOR): Referral to urologist sent by this office. Assessment & Plan (10/02/2021 9:47 AM ACT ENGLISH TUTOR): Seen on CT on presentation. CT urogram ordered per radiology recs. Urology consulted. Nausea and vomiting in adult 10/01/2021 03/15/2023 Assessment & Plan (10/08/2021 1:45 PM ACT ENGLISH TUTOR): Nausea vomiting resolved once UTI was treated Assessment & Plan (10/01/2021 10:33 AM ACT ENGLISH TUTOR): Nausea and vomiting started around September 09 is gotten progressively worse. Patient cannot hold down solids. Denies any blood in his stools or vomiting blood. No vomiting or bowel. No abdominal pain. Patient's unstable in appearance her typical self referred to emergency room for hospital admission EGD lab workup dehydration etc.. Acute cystitis with hematuria 10/01/2021 02/28/2022 Assessment & Plan (10/08/2021 1:44 PM ACT ENGLISH TUTOR): Patient's referral with Urology cystoscopy is scheduled heart to be done. 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 Discovered on recent hospitalization Assessment & Plan (10/02/2021 9:52 AM ACT ENGLISH TUTOR): UA on presentation showed pyuria with 4+ leuk esterase and 3+ bacteria present. Patient's lethargy and decreased appetite are likely symptoms infection, though it seems unlikely to explain the nausea, vomiting, and diarrhea that were present for approximately the past 2 weeks in resolved 3 days ago. A COVID-19 test at [facility] pharmacy in [place] was reportedly negative, but the symptoms are [...] 04/24/2021 Assessment & Plan (08/21/2020 3:48 PM ACT ENGLISH TUTOR): Patient having pain 3 4 days a [...] syndrome on left 01/07/2018 12/02/2019 Overview (01/07/2018): Evfh-xr-ubvauqlh discomfort no surgical intervention needed if problems [...] date. Assessment & Plan (11/05/2018 6:25 PM ACT ENGLISH TUTOR): Data hemoglobin HgbA1c today patient is having [...] OP Lab [address] [place] [address] Fatigue, unspecified type; Vertigo; Diabetes mellitus without complication (HCC) 04/08/2025 1:00 PM CDT Office Visit [facility] [address] [place] [address] Melony Oliveros NP Other fatigue (Primary Dx); Vertigo; Essential hypertension; Paroxysmal atrial fibrillation (HCC); Diabetes mellitus without complication (HCC); BCC (basal cell carcinoma), lip 04/08/2025 Telephone [facility] [address] [facility] [address] [place] [address] Yoni Redmond MD 04/07/2025 Telephone [facility] [address] [facility] [address] [place] [address] Osmel Moe MD [facility] 03/08/2025 Telephone [facility] Surgery [address] [facility] [address] [place] [id number] Tanya Alanis RN 02/07/2025 1:00 PM CDT Office Visit [facility] [address] [facility] [address] [place] [address] Osmel Moe MD Diabetes mellitus without complication (HCC) (Primary Dx); Chronic atrial fibrillation (HCC); Osteoarthritis involving multiple joints on both sides of body 02/01/2025 Orders Only [facility] [address] [place] [id number] Osmel Moe MD from Last 3 Months [...] History Surgery Date Site/Laterality Comments TUBAL LIGATION 1959' Tubal ligation OTHER SURGICAL HISTORY Ectopic , [...] drink = 0.6 oz pur e alcohol) [employer] Answer Date Recorded In the past 12 months has [employer], [employer], or water [employer] threatened to shut off services in your [...] week 04/08/2024 How often do you attend [facility] or anabaptism services? 1 to 4 times per year 04/08/2024 Do you belong to any clubs o r organizations such as taoism groups, unions, fraternal or athletic groups, or [...] place to sleep or slept in a senior care (including now)? No 10/16/2021 Housing Stability Vital Sign Answer Kole e Recorded In the last 12 months, was t here a time when you were not able to pay the mortgage or rent on time? No 04/08/2024 In the past 12 months, how m any times have you moved where you were living? 1 04/08/2024 At any time in the past 12 m [facility], were you homeless or living in a senior care (including now)? No 04/08/2024 Personal Safety Answer Date Recorded Have you ever been in or are you currently in a harmful physical or emotional relationship or is someone making you feel afraid or unsafe? Patient unable to answer 02/28/2024 Comments No Sex and Gender Information Value Date Recorded Sex Assigned at Not on file Legal Sex Female 3:07 PM ACT ENGLISH TUTOR Gender Identity Not on file Sexual [...] Last Done Comments Foot Exam 08/07/2024 08/07/2023, 11/2020, 06/20/2020 Covid-19 Vaccine ( season) 2025 07/21/2024, 12/26/2023, 07/03/2023, Additional history exists Influenza Vaccine (#1) 2025 4, 07/03/2023, 06/30/2022, Additional history exists Depression Screening 08/10/2025 08/10/2024, 08/07/2023, 05/30/2022, Additional history exists Fall Risk Assessment 08/10/2025 08/10/2024, 08/07/2023, 05/30/2022, Additional history exists Lipid Panel 08/10/2025 08/10/2024, 04/2022, 12/19/2020, Additional history exists Well Visit 65+ 08/10/2025 08/10/2024, 07/23, 05/30/2022, Additional history exists Dilated Eye Exam 08/16/2025 08/16/2024 Hemoglobin A1C 10/09/2025 04/08/2025, 07/23, 03/14/2023, Additional history exists Osteoporosis Screening-Bone Density Scan 10/05/2026 10/05/2024, 06/23/2020 DTaP/Tdap/Td Vaccine (2 - Td or Tdap) 01/28/2029 01/28/2019 Pneumococcal vaccine 65+ Completed 07/14/2018, 06/23 Zoster Vaccine Completed 09/30/2019, 05/2020, 06/29/2019 Albumin Creatinine Ratio, Urine Discontinued , 07/14/2018 eGFR Discontinued 04/08/2025, 02/21, 03/15/2024, Additional [...] Read Routine (OP Routine) 10/05/2024 11:46 AM ACT ENGLISH TUTOR Menopause HM DIABETES EYE EXAM Routine 08/16/2024 1:31 PM ACT ENGLISH TUTOR LIPID PANEL Routine 08/10/2024 11:33 AM ACT ENGLISH TUTOR Medicare annual wellness visit, subsequent Mixed hyperlipidemia ALBUMIN CREATININE RATIO, URINE Routine 08/10/2024 11:33 AM ACT ENGLISH TUTOR Medicare annual wellness visit, subsequent Diabetes mellitus [...] was last reviewed 2021. Testing performed by: [address] [address] Blood 04/08/2025 2:13 PM CDT 04/08/2025 7:37 PM CDT Melony Oliveros JOY OPERATOR LAB BLOOD ORDERABLES Final Resul t [address] [place] [address] * (ABNORMAL) Differential, auto (04/08/2025 2:13 PM CDT) Neutrophil abs 8.27(H) 1.50 - 6.50 K/cumm Comment:Testing performed by : [address] [address] Imm gran abs 0.05 0.00 - 0.10 K/cumm [facility] Comment:Testing performed by : [address] [address] Lymphocyte abs 1.75 0.80 - 3.30 K/cumm [facility] Comment:Testing performed by : [address] [address] Monocyte abs 0.86(H) 0.20 - 0.80 K/cumm [facility] Comment:Testing performed by : [address] [address] Eosinophil abs 0.07 0.00 - 0.50 K/cumm [facility] Comment:Testing performed by : [address] [address] Basophil abs 0.06 0.00 - 0.10 K/cumm [facility] Comment:Testing performed by : [address] [address] Neutrophil pct 74.8 % [facility] Comment: Interpretive Data Percent cell count reference ranges are not reported, since discordance with absolute values may lead to misinterpretation of CBC data. Current Interpretive Data was last revised on 2017. Testing performed by: [facility], [address] [place] [address]., [address] Imm gran pct 0.5 % CERNER Comment: Interpretive Data Percent cell count reference ranges are not reported, since discordance with absolute values may lead to misinterpretation of CBC data. Current Interpretive Data was last revised on 2017. Testing performed by: [address] [address] Lymphocyte pct 15.8 % CERNER Comment: Interpretive Data Percent cell count reference ranges are not reported, since discordance with absolute values may lead to misinterpretation of CBC data. Current Interpretive Data was last revised on 2017. Testing performed by: [address] [address] Monocyte pct 7.8 % CERNER Comment: Interpretive Data Percent cell count reference ranges are not reported, since discordance with absolute values may lead to misinterpretation of CBC data. Current Interpretive Data was last revised on 2017. Testing performed by: [facility], [address] [place] [address]., [address] Eosinophil pct 0.6 % CERNER Comment: Interpretive Data Percent cell count reference ranges are not reported, since discordance with absolute values may lead to misinterpretation of CBC data. Current Interpretive Data was last revised on 2017. Testing performed by: [address] [address] Basophil pct 0.5 % CERNER Comment: Interpretive Data Percent cell count reference ranges are not reported, since discordance with absolute values may lead to misinterpretation of CBC data. Current Interpretive Data was last revised on 2017. Testing performed by: [address] [address] Blood 04/08/2025 2:13 PM CDT 04/08/2025 7:30 PM CDT us Melony Oliveros NP LAB BLOOD ORDERABLES Final Resul t [facility] [place] [address] [address] Department [place] [address] * (ABNORMAL) Thyroid Function [place] (04/08/2025 2:13 PM CDT) Pathologist [facility] TSH 4.26(H) 0.30 - 4.20 mcIUnit/mL Comment:Testing performed by : [address] [address] Blood 04/08/2025 2:13 PM CDT 04/08/2025 7:30 PM CDT Melony Oliveros NP LAB BLOOD ORDERABLES Final Resul t [address] Department [place] [address] * (ABNORMAL) CBC with auto differential (04/08/2025 2:13 PM CDT) [facility] WBC 11.06(H) 3.80 - 9.90 K/cumm Comment:Testing performed by : [address] [address] Hgb 5.1(C) 11.9 - 15.5 g/dL CERNER Comment: This result has been called to Dr. Yoni Redmond by [id number] on 04/08/2025 20:02:54, and has been read back. Testing performed by: [address] [address] Hct 17.8(L) 35.6 - 45.5 % C[facility]ER Comment:Testing performed by : [address] [address] Plt 504(H) 150 - 400 K/cumm [facility] Comment:Testing performed by : [address] [address] MPV 11.3 9.1 - 12.3 fL [facility] CH Comment:Testing performed by : [address], [address] RBC 1.82(L) 3.90 - 5.20 M/cumm [facility] CH Comment:Testing performed by : [address], [address] MCV 97.8(H) 81.3 - 96.4 fL [facility] Comment:Testing performed by : [facility], [address] [place] [address], [address] MCH 28.0 27.1 - 33.3 pg [facility] Comment:Testing performed by : [facility], [address] [place] [address], [address] MCHC 28.7(L) 32.3 - 35.7 g/dL [facility] Comment:Testing performed by : [facility], [address] [place] [address], [address] RDW CV 16.7(H) 11.1 - 14.9 % [facility] Comment:Testing performed by : [facility], [address] [place] [address], [address] RDW SD 59.8(H) 35.7 - 48.1 fL [facility] Comment:Testing performed by : [facility], [address] [place] [address], [address] NRBC abs 0.02(H) 0.00 - 0.01 K/cumm [facility] Comment:Testing performed by : [facility], [address] [place] [address], [address] Blood 04/08/2025 2:13 PM CDT 04/08/2025 7:30 PM CDT Melony Oliveros JOY OPERATOR LAB BLOOD ORDERABLES Final Resul t Performing Organization Address City/[facility]/ZIP Co de Phone Number BARRYYEE Sunitha [facility] Department [place] [address] * T4, free (04/08/2025 2:13 PM CDT) Free T4 1.30 0.90 - 1.70 ng/dL Comment:Testing performed by : [address] [address] Blood 04/08/2025 2:13 PM CDT 04/08/2025 7:37 PM CDT Melony Oliveros JOY OPERATOR LAB BLOOD ORDERABLES Final Resul t [facility] [place] [facility] Department [place] [address] * Cholesterol, LDL, direct (04/08/2025 2:13 PM [...] last revised on 2018. Testing performed by: [address] [address] Blood 04/08/2025 2:13 PM CDT 04/08/2025 7:30 PM CDT Melony Oliveros NP LAB BLOOD ORDERABLES Final Resul t [facility] [place] [address] [address] Department [place] [address] * Hemoglobin A1c (04/08/2025 2:13 PM CDT) Hgb A1C 4.7 4.0 - 5.6 % Comment:Testing performed by : [address] [address] Estimated Average Glucose 88 mg/dL [facility] [place] Comment: The ADA recommends reporting an estimated Average Glucose (eAG) with all Hemoglobin A1c results using the equation derived from a study of 507 normal and diabetic adults. Minority populations were underrepresented and children were not included. (Diabetes Care 31:7869-2390, 2008). The eAG is not equivalent to a fasting glucose. Testing performed by: [address] [address] Blood 04/08/2025 2:13 PM CDT 04/08/2025 7:30 PM CDT us Melony Oliveros NP LAB BLOOD ORDERABLES Final Resul t [address] Department [place] [address] * (ABNORMAL) Comprehensive metabolic panel (04/08/2025 2:13 PM CDT) Sodium 132(L) 135 - 145 mmol/L Comment:Testing performed by : [facility], [address] [place] [address]., [address] Potassium, pl 5.7(H) 3.3 - 4.9 mmol/L [facility] Comment:Testing performed by : [address] [address] Chloride 106 97 - 110 mmol/L [facility] Comment:Testing performed by : [address] [address] CO2 13(L) 22 - 32 mmol/L [facility] Comment:Testing performed by : [address] [address] Anion gap 13 2 - 15 mmol/L [facility] Comment:Testing performed by : [address] [address] BUN 42(H) 6 - 25 mg/dL [facility] Comment:Testing performed by : [address] [address] Creatinine 1.37(H) 0.60 - 1.10 mg/dL [facility] Comment:Testing performed by : [address] [address] Glucose 124 70 - 199 mg/dL [facility] Comment: Interpretive Data Fasting glucose >/= 126 [...] last revised 2022. Testing performed by: [facility], [address] [place] [address]., [address] Calcium 10.2 8.5 - 10.3 mg/dL [facility] CH Comment:Testing performed by : [facility], [address] [place] [address]., [address] Bilirubin, total 0.2 0.1 - 1.2 mg/dL [facility] CH Comment:Testing performed by : [facility], [address] [place] [address]., [address] Protein, pl 6.1(L) 6.5 - 8.5 g/dL [facility] Comment:Testing performed by : [facility], [address] [place] [address], [address] Albumin 3.6 3.5 - 5.0 g/dL [facility] Comment:Testing performed by : [address], [address] Alk phos 120 40 - 130 Units/L [facility] Comment:Testing performed by : [facility], [address] [place] [address], [address] ALT 13 7 - 45 Units/L [facility] Comment:Testing performed by : [address], [address] AST 21 10 - 45 Units/L [facility] Comment:Testing performed by : [address], [address] Blood 04/08/2025 2:13 PM CDT 04/08/2025 7:30 PM CDT Melony Oliveros JOY OPERATOR LAB BLOOD ORDERABLES Final Resul t [address] Department [place] [address] * SCAN - RADIOLOGY/IMAGING (02/01/2025) Anatomical Region Laterality Modality Other us Osmel Moe MD Final Resu lt * Dexa Axial Skeleton Bone Density 1 or 2 Site (10/05/2024 11:46 AM ACT ENGLISH TUTOR) Anatomical Region Laterality Modality Body N/A Other 10/05/2024 8:41 PM ACT ENGLISH TUTOR Narrative 10/05/2024 8:42 PM ACT ENGLISH TUTOR EXAM DESCRIPTION: DEXA AXIAL SKELETON BONE DENSITY 1 OR MORE SITES REASON FOR STUDY: 84 y/o year old F with given history of: menopause Osteoporosis screening Post menopausal Interventionist/Model: GLOG SL (S/N 02775) CLINICAL INFORMATION: Current height: 62.5 inches Maximum [...] Abelardo Rooney M.D. MF: ROSA Report ID: [id number] Reading Location: [place] [address] Procedure Note Abelardo Rooney MD - 10/05/2024 EXAM DESCRIPTION: DEXA AXIAL SKELETON BONE DENSITY 1 OR MORE SITES REASON FOR STUDY: 84 y/o year old F with given history of: menopause Osteoporosis screening Post menopausal Interventionist/Model: GLOG SL (S/N [id number]) CLINICAL INFORMATION: Current height: 62.5 inches Maximum [...] Abelardo Rooney M.D. MF: ROSA Report ID: [id number] Reading Location: [place] [id number] Osmel Moe MD IMG DXA PROCEDURES Final R esult * DIABETES EYE EXAM (08/16/2024 1:31 PM ACT ENGLISH TUTOR) [facility] SCRIBED DIABETIC DILATED EYE EXAM Normal Historical Provider [facility] Final Result * (ABNORMAL) Albumin Creatinine Ratio, Urine (08/10/2024 11:33 AM ACT ENGLISH TUTOR) [facility] Albumin Ur 91.5 mg/L Comment: Interpretive Data No reference range established. Current interpretive data was last revised 2019. Testing performed by: [address] [address] Creatinine Ur 89.8 mg/dL [facility] Comment: Interpretive Data No reference range established. Current interpretive data was last revised 2019. Testing performed by: [facility], [address] [place] [address]., [address] Albumin Creatinine Ratio, Ur 102(H) 1 - 29 mg/g [facility] Comment:Testing performed by : [address] [address] Urine 08/10/2024 11:3 3 AM ACT ENGLISH TUTOR 08/10/2024 5:40 PM ACT ENGLISH TUTOR Osmel Moe MD LAB URINE ORDERABLES Final Result [place] [address] [facility] [place] [address] * Lipid panel (08/10/2024 11:33 AM ACT ENGLISH TUTOR) Cholesterol 192 30 - 199 mg/dL Comment: [...] last revised on 2018. Testing performed by: [address] [address] Triglycerides 105 <=149 mg/dL [facility] Comment: Interpretive [...] last revised on 2018. Testing performed by: [address] [address] HDL 46 >=40 mg/dL [facility] Comment: Interpretive [...] revised on 2018. Testing performed by: [facility], [address] [place] [address]., [address] LDL, calculated 127 <=129 mg/dL [facility] Comment: [...] 3. Evan Sanchez et al. CHEO Cardiol. 2020 January 20;5(5):540-548. doi: [email or web address] Current Interpretive Data was last revised on 2024. Testing performed by: [address] [address] Non-HDL Cholesterol 146 mg/dL [facility] Comment: Interpretive [...] revised on 2018. Testing performed by: [facility], [address] [place] [address]., [address] Chol/HDL ratio 4 [facility] Comment:Testing performed by : [facility], [address], [place]., [address] Blood 08/10/2024 11:3 3 AM ACT ENGLISH TUTOR 08/10/2024 5:40 PM ACT ENGLISH TUTOR us Osmel Moe MD LAB BLOOD ORDERABLES Final Result Performing Organization Address City/State/ZIP [place] Phone Number [place] [address] [facility] [place] [address] from Last 3 Months or Most Recently Relevant to Health Maintenance Insurance [employer] CHOICE MEDICARE PPO MEDICARE [facility] HU[employer] CHOICE MEDICARE PPO HU[employer] CHOICE MEDICARE PPO HU[employer] CHOICE MEDICARE PPO Advance Directives For more information, please contact: [phone] * Full Code (Latest Code Status on File) Date Activated Date Inactivated Comments 10/02/2021 12:09 AM 10/05/2021 8:30 PM Care Teams Construction Operations Manager Relationship Specialty Start Date End Date Osmel Moe MD PCP - General 12/20/16 Gomez Raymond MD Consulting Physician Urology 10/04/21 James Suarez MD Consulting Physician Cardiovascular Disease 10/05/21 Ramo Squires MD Consulting Physician Urology 01/23/22 James Juarez MD Referring Physician Dermatology 03/03/23
[2025-04-08 23:25] LABS: Iron 11 ug/dL (37-170)
[2025-04-08 23:34] LABS: Percent Iron Saturation 3 % (20-50)
[2025-04-08 23:53] LABS: INR 2.7; Prothrombin Time 28.5 Seconds (11.1-14.7)
[2025-04-08 23:54] LABS: Partial Thromboplastin Time 31.6 Seconds (22.3-36.8)
[2025-04-08 23:55] VITALS: BP 120/37; PULSE 65; RESP 18; TEMP 36.3; O2SAT 94
[2025-04-09] VITALS (7 sets, daily range): BP systolic 118–138; BP diastolic 35–82; PULSE 62–69; RESP 17–20; TEMP 36.6–37.1; O2SAT 18–100
[2025-04-09 00:02] LABS: Ferritin 7.12 ng/mL (11.1-264)
--- NOTE | 2025-04-09 00:03 | PC.NURSE ---
First unit of blood started
[2025-04-09] MEDS: SODIUM CHLORIDE 0.9% IV 250 ML 30 ML IV CONT (00:04)
--- NOTE | 2025-04-09 00:36 | ECG_ITS ---
Test Date: 2025-04-09 00:36:16 Measurements Intervals [place] Rate: 64 P: 78 MA: 204 QRS: 1 QRSD: 90 T: 36 QT: 407 QTc: 420 Interpretive Statements SINUS RHYTHM CANNOT EXCLUDE PREVIOUS ANTEROSEPTAL INFARCTION ABNORMAL ECG Compared to ECG 03/09/2024 10:21:03 No significant changes Electronically Signed On 04-09-2025 08:51:40 CDT by Abelardo Horne M.D.
[2025-04-09 00:59] LABS: Vitamin B12 > 1000.0 pg/mL (239-931)
--- NOTE | 2025-04-09 07:45 | ECG_ITS ---
Test Date: 2025-04-09 01:42:00 Measurements Intervals [place] Rate: 64 P: 85 MN: 205 QRS: -5 QRSD: 90 T: 41 QT: 408 QTc: 422 Interpretive Statements SINUS RHYTHM WITH OCCASIONAL VENTRICULAR PREMATURE COMPLEXES CANNOT EXCLUDE PREVIOUS ANTEROSEPTAL INFARCTION ABNORMAL ECG Compared to ECG 04/09/2025 00:36:16 Ventricular premature complex(es) now present Electronically Signed On 04-09-2025 08:53:44 CDT by Abelardo Horne M.D.
== END 2025-04-09 03:08 | disposition short-term general hospital (02) ==
PROVIDERS: Emergency Provider Student in an Organized Health Care Education/Training Program; PCP Internal Medicine
DX: D62 Acute posthemorrhagic anemia (principal); K68.12 Psoas muscle abscess; R53.1 Weakness; R79.89 Other specified abnormal findings of blood chemistry; I48.0 Paroxysmal atrial fibrillation; I10 Essential (primary) hypertension; M81.0 Age-related osteoporosis without current pathological fracture; M10.9 Gout, unspecified; Z85.828 Personal history of other malignant neoplasm of skin; Z87.891 Personal history of nicotine dependence; Z98.49 Cataract extraction status, unspecified eye; Z79.01 Long term (current) use of anticoagulants; Z79.899 Other long term (current) drug therapy
CPT/HCPCS: 36415; 36430; 71045; 74174; 80053; 82607; 82728; 82746; 83010; 83540; 83550; 83615; 85025; 85046; 85610; 85730; 86850; 86900; 86901; 86923; 93005; 96360; 96361; 99285; J7050; P9016; Q9967

== ENCOUNTER 2025-08-23 10:46 | Emergency (ER) | payer MEDICARE, SELFPAY ==
[2025-08-23] VITALS (8 sets, daily range): BP systolic 128–142; BP diastolic 49–69; PULSE 64–82; RESP 15–22; TEMP 36.8–37; O2SAT 94–97
--- NOTE | ~2025-08-23 | XR_ITS ---
Examination: XR hip LT 2V w AP pelvis Clinical History: fall, hip pain Comparison: CT abdomen pelvis 04/08/2025 Technique: 2 views left hip, AP pelvis Findings/impression: 1. Intertrochanteric fracture left femur. 2. Moderate degenerative changes bilateral hip. 3. Moderate degenerative changes symphysis pubis. Reviewed, dictated and finalized at location R. TROMECHANICAL EQUIPMENT TESTER
--- NOTE | ~2025-08-23 | CT_ITS ---
EXAMINATION: CT cervical spine wo con DATE: 08/23/2025 11:16 INDICATION: Fall. TECHNIQUE: Computed tomography (CT) of the cervical spine was performed without intravenous contrast. Automated exposure control and iterative reconstruction technique were employed. The dose-length product was 129.74 mGy-cm. COMPARISON: None FINDINGS: There is a small right mastoid effusion. There is 2 mm retrolisthesis of C3 on C4. There is 14 degrees levoscoliosis of cervical spine. Vertebral body heights are normal. There is severely decreased disc height at C3-C4, mildly decreased disc height at C4-C5, and moderately decreased disc height at C5-C6. There is multilevel severe facet joint osteoarthritis and uncovertebral joint osteoarthritis. There is mild neural foraminal stenosis at multiple levels on either side. There is mild central canal stenosis at C3-C4, C4-C5, and C5-C6. IMPRESSION: 1. No fracture. 2. Severe cervical spondylosis. 3. Cervical levoscoliosis. Reviewed, dictated and finalized at location E. NE TESTING SUPERVISOR
--- NOTE | ~2025-08-23 | CT_ITS ---
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 Technique: Axial images obtained of the brain without contrast. One or more of the following dose reduction techniques were used: automated exposure control, adjustment of the mA and/or kV according to patient size, use of iterative reconstruction technique. Findings: There is a large focus of increased density within the right temporoparietal lobe measuring 2.2 x 3.6 cm with areas of increased density suspicious for hemorrhage with a large amount of surrounding vasogenic edema. There is mass effect upon the right posterior lateral ventricle, there is no midline shift. 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 Mastoid air cells unremarkable. Sinuses and orbits unremarkable. No acute fracture. No significant facial or scalp soft tissue swelling evident. No radiopaque foreign body is seen. 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 Contrast-enhanced MRI recommended Reviewed, dictated and finalized at location P. Y LEVEL INSTALLATION TECHNICIAN Impression: Interval progression compared to the prior exam with intra-axial neoplasm detai led above. Contrast-enhanced MRI recommended
--- NOTE | 2025-08-23 11:36 | ED.FALL ---
HPI - Fall General Chief Complaint: Fall Stated Complaint: fall-hip pain Time Seen by Provider: 08/23/25 11:04 History of Present Illness HPI Narrative: Patient presents here after ground level fall, unwitnessed, she is reporting pain to her left hip. She does not know if she hit her head. Was on blood thinners but this has been paused last 5 days for plan surgery Related Data Home Medications ?Medication ?Instructions ?Recorded ?Confirmed ?Last Taken ?Type allopurinol 300 mg tablet 300 mg PO DAILY 02/27/23 08/23/25 08/22/25 History Allergies Allergy/AdvReac Type Severity Reaction Status Date / Time atorvastatin Allergy Muscle Pain Verified 08/23/25 11:03 Cephalosporins Allergy Unknown Verified 08/23/25 11:03 clindamycin Allergy Unknown Verified 08/23/25 11:03 codeine Allergy Unknown Verified 08/23/25 11:03 Iodinated Contrast Media Allergy Rash Verified 08/23/25 11:03 meperidine Allergy Unknown Verified 08/23/25 11:03 morphine Allergy Unknown Verified 08/23/25 11:03 Penicillins Allergy Fainting Verified 08/23/25 11:03 propoxyphene Allergy Unknown Verified 08/23/25 11:03 rosuvastatin Allergy Unknown Verified 08/23/25 11:03 Sulfa (Sulfonamide Allergy Other Verified 08/23/25 11:03 Antibiotics) tramadol Allergy Unknown Verified 08/23/25 11:03 Review of Systems Review of Systems: All systems reviewed & are unremarkable except as noted in HPI and below PMFSH Past Medical History Medical History Type 2 diabetes mellitus DIAZ (acute kidney injury) Sepsis with metabolic encephalopathy Paroxysmal A-fib Osteoporosis Gout Encounter for removal of skin lesion Skin cancer A-fib Hypertension Surgical History Surgical History H/O lumpectomy H/O tubal ligation History of appendectomy H/O cataract extraction History of removal of pigmented skin lesion Family History Family History Mother Alzheimer's dementia Hypothyroidism Father Cancer Diabetes mellitus Social History Social History Social History: she has 2 daughters and is . she lives with her daughter. 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 She does not use any drugs alcohol or marijuana. Smoking status: Never smoker Alcohol intake: never Drinks per week: 1 Substance use: never Lack of Transportation: No Lack of Food: Never True Current Housing: I Have Housing Concerned About Future Housing: No Difficulty Paying Gas/Electric Bills: No Difficulty Paying for Meds: No Currently Unemployed: No Education: Don't Know Difficulty w/ Childcare or Family Care: No Spiritual care concerns: No Exam Narrative: EXAMINATION OF ORGAN SYSTEMS/BODY AREAS: Constitutional: Vital signs per nursing GENERAL: Looks tired but wakes up to voice HEAD: scalp hematoma left head EYES: EOMI, conjunctiva normal ENT: Hearing grossly intact LUNGS: Nonlabored breathing. HEART: Normal DP pulses bilaterally. ABD: [Soft], [nontender to palpation] EXT: Tenderness left hip SKIN: Hematoma left side of head NEURO: [Sleepy but wakes to voice and stimulus. Slightly less movement to the left leg.] PSYCH: Normal affect Course Vital Signs Vital signs: Vital Signs Temperature 98.6 F 08/23/25 10:45 Pulse Rate 67 08/23/25 10:45 Respiratory Rate 18 08/23/25 10:45 Blood Pressure 132/69 08/23/25 10:45 Pulse Oximetry 96 08/23/25 10:45 Oxygen Delivery Room Air 08/23/25 10:45 Temperature 98.6 F 08/23/25 10:45 Pulse Rate 67 08/23/25 10:45 Respiratory Rate 18 08/23/25 10:45 Blood Pressure 132/69 08/23/25 10:45 Pulse Oximetry 96 08/23/25 10:45 Oxygen Delivery Room Air 08/23/25 10:45 MDM MDM Narrative Medical decision making narrative: Patient presents here after a fall, she has been off blood thinners for 5 days, she is reporting pain to her left hip. Family also suspecting possible UTI since she has seemed a little bit more confused and sleepy than usual. Has hematoma to scalp on the left, has tenderness to the left hip, not moving her left leg much. Is sleepy here but will wake up and open her eyes and answer my questions appropriately. CT brain, C-spine, hip x-ray ordered. On my Independent interpretation of CT brain I am highly concerned for brain bleed. I did also review her x-ray, independent interpretation showing left hip fracture. Updated family, I also discussed this with the radiologist who suspects this is most likely a hemorrhagic mass/neoplasm, I have updated the family regarding this. Patient was seen before at [facility] several months ago and has her neurologist there would like her transferred to [facility]. Dr Sin [facility] ER accepts. Differential Diagnosis Differential Diagnosis: Fracture, brain bleed, infection Imaging Data Radiologist's impression: ITS Impressions Head CT 08/23/25 11:18 Impression: Interval progression compared to the prior exam with intra-axial neoplasm detailed above. Contrast-enhanced MRI recommended Critical Care Time Critical Care Time Critical Care Time: Yes Indication: hemorrhagic brain mass, hip fracture, trauma Initial evaluation, discuss w/ involved parties, attempting to gather old records: 15 minutes Documenting medical record: 10 minutes Review of results (EKG's, labs, imaging): 5 minutes Serial repeat bedside evaluation: 10 minutes Discussing case with multiple memebers of the care team and consultants: 10 minutes Total Critical Care Time: 50 Discharge Plan Discharge Clinical Impression: Bleeding in brain, Closed hip fracture Patient Disposition: Acute Care Hospital Condition: Serious Patient Language: Maltese Prescriptions: No Action allopurinol 300 mg tablet 300 mg PO DAILY lisinopril 5 mg Tablet 5 mg PO QAM Qty: 30 0RF amlodipine 10 mg Tablet 10 mg PO DAILY Qty: 30 0RF pantoprazole [Protonix] 40 mg tablet,delayed release (DR/EC) 40 mg PO BID Qty: 60 0RF divalproex [Depakote ER] 500 mg tablet extended release 24 hr 1,500 mg PO DAILY Qty: 90 0RF ascorbic acid (vitamin C) 500 mg Capsule, Extended Release 500 mg PO DAILY Qty: 30 0RF vitamin B complex Tablet 1 tablet PO DAILY Qty: 30 0RF levetiracetam [Keppra] 750 mg tablet 750 mg PO BID Qty: 60 0RF metoprolol succinate 25 mg tablet extended release 24 hr 12.5 mg PO DAILY Qty: 30 0RF cholecalciferol (vitamin D3) 50 mcg (2,000 unit) tablet 50 mcg PO DAILY Qty: 30 0RF Xarelto 15 mg tablet 15 mg PO DAILY Qty: 30 0RF Rx Instructions: Take with breakfast, start taking on April 25, 2025 cyanocobalamin (vitamin B-12) 1,000 mcg lozenge 1,000 mcg sublingual DAILY Qty: 30 0RF Follow-up/Referrals: Payal,Osmel Swenson MD [Primary Care Provider, Unknown]
--- OUTSIDE RECORDS SUMMARY | 2025-08-23 12:00 | XMS_ITS | Encounter Summary ---
Author Organization [facility] Healthcare Address [address] [place] [address] Care Team Providers Care Medicare Sales Executive Name Role Phone Osmel Moe MD Primary Care Provider + [phone] Gomez Raymond MD Unavailable [phone] James Suarez MD Unavailable [phone] Ramo Squires MD Unavailable [phone] James Juarez MD Unavailable [phone] Bisi Gonzales OD Unavailable [phone] Encounter Details Date Type Department Care Team (Late st Contact Info) Description 08/23/2025 12:00 PM [facility] Emergency [facility] Emergency Department [address] [place] [address] Social History Tobacco Use Types Packs/Day Years Used Date Smoking Tobacco: Never Passive Smoke Exposure: Past Smokeless Tobacco: Never Alcohol Use Standard Drinks/Week Comments Yes 1 (1 standard drink = 0.6 oz pur e alcohol) [facility] Utilities Answer Date Recorded In the past 12 months has [employer], gas, oil, or water company threatened to shut off services in your home? No 04/08/2024 Social Connection and Isolation Panel Answer Date Recorded In a typical week, how many times do you talk on the phone with family, friends, or neighbors? More than three times a week 04/08/2024 How often do you get togethe r with friends or relatives? Three times a week 04/08/2024 How often do you attend chur ch or presybeterian services? 1 to 4 times per year 04/08/2024 Do you belong to any clubs o r organizations such as shinto groups, unions, fraternal or athletic groups, or school groups? Yes 04/08/2024 How often do you attend meet ings of the clubs or organizations you belong to? More than 4 times per year 04/08/2024 Are you , , di vorced, , never , or living with a partner? 04/08/2024 Overall Financial Resource Strain (CARDIA) Answe r Date Recorded How hard is it for you to pa y for the very basics like food, housing, medical care, and heating? Not hard at all 04/08/2024 PHQ-2 Answer Date Recorded PHQ-2 Total Score (If total score is 3 or more points, staff should administer the PHQ-9) 6 08/11/2025 Hunger Vital Sign Answer Date Recorded Within [...] in a detention (including now)? No 10/16/2021 PHQ-9 Answer Date Recorded PHQ-9 Total Score 19 08/11/2025 Housing Stability Vital Sign Answer Kole e Recorded In the last 12 months, was t here a time when you were not able to pay the mortgage or rent on time? No 04/08/2024 In the past 12 months, how m any times have you moved where you were living? 1 04/08/2024 At any time in the past 12 m [facility], were you homeless or living in a detention (including now)? No 04/08/2024 AUDIT-C Answer Date Recorded Q1: How often do you have a drink containing alc ohol? 2-4 times a month 08/12/2025 Q2: How many drinks containi ng alcohol do you have on a typical day when you are drinking? 1 or 2 08/12/2025 Q3: How often do you have si x or more drinks on one occasion? Never 08/12/2025 Personal Safety Answer Date Recorded Have you ever been in or are you currently in a harmful physical or emotional relationship or is someone making you feel afraid or unsafe? Denies 04/11/2025 Comments No Sex and Gender Information Value Date Recorded Sex Assigned at Not on file Legal Sex Female 3:07 PM ASSESSMENT RN Gender Identity Not on file Sexual Orientation Not on file Occupation Industry Job Start Date Job End Date Retired Not on file Not on file Not on file documented as of this encounter Miscellaneous Notes * ED Pre-Arrival Note - Nidia Parmar RN - 08/23/2025 11:56 AM ASSESSMENT RN Pre-Arrival Note Pt transfer coming via EMS from [place] called in by MD oWng. Pt had GLF with head strike. -LOC. CT showing IPH. Also has L hip fx. Neuro intact. Accepted as level 2 by MD Sin. Nidia Parmar RN SSMENT RN documented in this encounter Plan of Treatment Upcoming Encounters Date Type Department Care Team (Latest Contact Info) Description 08/24/2025 10:30 AM ASSESSMENT RN Hospital Encounter [facility] Cardiac Catheterization Lab [address] [place] [address] Sunny Moore MD [address] [place] [address] [address] Paroxysmal A-fib (HCC); H/O: GI bleed 08/24/2025 10:30 AM ASSESSMENT RN Anesthesia Event [facility] Cardiac Catheterization Lab [address] [place], [place] [id number] Indira Wakefield ESTHETICIAN SPA [address] [facility] [address] [place], [place] [id number] 08/24/2025 10:30 AM ASSESSMENT RN - 08/24/2025 12:00 PM ASSESSMENT RN Surgery [facility] Cardiac Catheterization Lab [address] [place] [address] Sunny Moore MD [address] [place] [address] PERC BEN CLOSE W/IMPLANT [id number] documented as of this encounter Visit Diagnoses Not on filedocumented in this encounter Care Teams Medicare Sales Executive Relationship Specialty Start Date End Date Osmel Moe MD PCP - General 12/20/16 Gomez Raymond MD Consulting Physician Urology 10/04/21 James Suarez MD Consulting Physician Cardiovascular Disease 10/05/21 Ramo Squires MD Consulting Physician Urology 01/23/22 James Juarez MD Referring Physician Dermatology 03/03/23 Bisi Gonzales OD [address] [place] [address] [facility] 05/24/25 documented as of this encounter
[2025-08-23 12:13] LABS: Alanine Aminotransferase 18 U/L (6-35); Albumin Level 3.6 g/dL (3.5-5.1); Alkaline Phosphatase 83 U/L (38-126); Anion Gap 3 mmol/L (4-12); Aspartate Amino Transferase 38 U/L (14-36); Bilirubin,Total 0.4 mg/dL (0.2-1.3); Blood Urea Nitrogen 21 mg/dL (7-17); Calcium 11.6 mg/dL (8.4-10.2); Carbon Dioxide 24 mmol/L (22-30); Chloride 109 mmol/L (98-107); Estimated CRCL calculation 22 ml/min; Estimated Glomerular Filt Rate 37; Glucose 109 mg/dL (65-110); Potassium 4.7 mmol/L (3.4-5.0); Sodium 136 mmol/L (137-145); Total Protein 6.3 g/dL (6.3-8.2)
[2025-08-23 12:14] LABS: INR 1.0; Partial Thromboplastin Time 22.8 Seconds (22.3-36.8); Prothrombin Time 13.7 Seconds (11.1-14.7)
[2025-08-23 12:18] LABS: Hematocrit 33.0 % (37.0-47.0); Hemoglobin 10.8 g/dL (12.0-15.0); Immature Granulocyte Percent A 0.7 % (0-0.5); Lymphocytes Absolute Auto 2.04 K/mm3 (0.9-3.2); Mean Corpuscular HGB Conc 32.7 g/dl (32-36); Mean Corpuscular Hemoglobin 32.9 pg (26-34); Mean Corpuscular Volume 100.6 fl (80-100); Nucleated Red Blood Cells Absolute Auto 0.000 K/mm3 (0.0-0.012); Nucleated Red Blood Cells Perc 0.0 % (0.0-0.2); Platelet Count Result 197 k/mm3 (150-375); Red Blood Count 3.28 M/mm3 (4.2-5.4); White Blood Count 10.1 K/mm3 (4.5-10.0)
--- OUTSIDE RECORDS SUMMARY | 2025-08-23 12:53 | XMS_ITS | Encounter Summary ---
Author Organization [facility] Address [address] [place] [address] Phone Care Team Providers Care Store Grocery Merchandiser Name Role Phone Osmel Moe MD Primary Care Provider [phone] Gomez Raymond MD Unavailable James Suarez MD Unavailable [phone] Ramo Squires MD Unavailable [phone] James Juarez MD Unavailable Bisi Gonzales OD Unavailable Reason for Visit * Reason Onset Date Comments Scheduling Appointments 08/23/2025 Encounter Details Date Type Department Care Team (Late st Contact Info) Description 08/23/2025 Telephone [facility] Medicine Scheduling [address] [place] [address] Parish Hillman NP [address] [id number] Scheduling Appointments Social History Tobacco Use Types Packs/Day Years Used Date Smoking Tobacco: Never Passive Smoke Exposure: Past Smokeless Tobacco: Never Alcohol Use Standard Drinks/Week Comments Yes 1 (1 standard drink = 0.6 oz pur e alcohol) [facility] Utilities Answer Date Recorded In the past 12 months has [employer], oil, or [employer] threatened to shut off services in your [...] often do you attend chur ch or roman catholic services? 1 to 4 times per year 04/08/2024 Do you belong to any clubs o r organizations such as evangelical groups, unions, fraternal or athletic groups, or [...] to sleep or slept in a senior living (including now)? No 10/16/2021 PHQ-9 Answer Date [...] any time in the past 12 m [facility], were you homeless or living in a senior living (including now)? No 04/08/2024 AUDIT-C Answer Date [...] on file Legal Sex Female 3:07 PM BUILD ENGINEER Gender Identity Not on file Sexual Orientation Not on file Occupation Industry Job Start Date Job End Date Retired Not on file Not on file Not on file documented as of this encounter Miscellaneous Notes * Telephone Encounter - Nisha Mortensen - 08/23/2025 8:15 AM CST Lvm to jenny 08/23 appt due to weather D ENGINEER documented in this encounter Plan of Treatment Upcoming Encounters Date Type Department Care Team (Latest Contact Info) Description 08/24/2025 10:30 AM BUILD ENGINEER Hospital Encounter [facility] Cardiac Catheterization Lab [address] [place] [address] Sunny Moore MD [address] [facility] [address] [place] [address] [place] [address] Paroxysmal A-fib (HCC); H/O: GI bleed 08/24/2025 10:30 AM BUILD ENGINEER Anesthesia Event [facility] Cardiac Catheterization Lab [address] [place], [place] [id number] Indira Wakefield WELL DRILL OPERATOR CABLE TOOL [address] [address] 08/24/2025 10:30 AM BUILD ENGINEER - 08/24/2025 12:00 PM BUILD ENGINEER Surgery [facility] Cardiac Catheterization Lab [address] [place] [address] Sunny Moore MD [address] [place] [address] PERC BEN CLOSE W/IMPLANT [id number] documented as of this encounter Visit Diagnoses Not on filedocumented in this encounter Care Teams Store Grocery Merchandiser Relationship Specialty Start Date End Date Osmel Moe MD PCP - General 12/20/16 Gomez Raymond MD Consulting Physician Urology 10/04/21 James Suarez MD Consulting Physician Cardiovascular Disease 10/05/21 Ramo Squires MD Consulting Physician Urology 01/23/22 James Juarez MD Referring Physician Dermatology 03/03/23 Bisi Gonzales OD [address] [place] [address] [facility] Ophthalmology 05/24/25 documented as of this encounter
--- OUTSIDE RECORDS SUMMARY | 2025-08-23 12:53 | XMS_ITS | Encounter Summary ---
Author Organization [facility] Address [address] [place] [address] Phone Care Team Providers [facility] Specialist Name Role Phone Osmel Moe MD Primary Care Provider + [phone] Gomez Raymond MD Unavailable [phone] James Suarez MD Unavailable [phone] Ramo Squires MD Unavailable James Juarez MD Unavailable Sera Vieira RN Unavailable [phone] Bisi Gonzales OD Unavailable [phone] Encounter Details Date Type Department Care Team (Late st Contact Info) Description 02/27/2023 Orders Only [facility] [address] [place] [address] Scanning, Provider Social History Tobacco Use Types Packs/Day Years Used Date Smoking Tobacco: Never Passive Smoke Exposure: Past Smokeless Tobacco: Never Alcohol Use Standard Drinks/Week Comments Yes 0 (1 standard drink = 0.6 oz pur e alcohol) Social Connection and Isolation Panel Answer Date Recorded In a typical week, how many times do you talk on the phone with family, friends, or neighbors? More than three times a week 10/08/2021 How often do you get togethe r with friends or relatives? More than three times a week 10/08/2021 How often do you attend chur ch or voodoo services? More than 4 times per year [...] on file Legal Sex Female 3:07 PM REEL CUTTER Gender Identity Not on file Sexual Orientation Not on file Occupation Industry Job Start Date Job End Date Retired Not on file Not on file Not on file documented as of this encounter Plan of Treatment Upcoming Encounters Date Type Department Care Team (Latest Contact Info) Description 08/24/2025 10:30 AM REEL CUTTER Hospital Encounter [facility] [address] [place] [id number] Sunny Moore MD [address] [facility] [address] [place] [address] Paroxysmal A-fib ([facility]); H/O: GI bleed 08/24/2025 10:30 AM REEL CUTTER Anesthesia Event [facility] [address] [place] [id number] [place] [id number] [address] 08/24/2025 10:30 AM REEL CUTTER - 08/24/2025 12:00 PM REEL CUTTER Surgery [facility] [address] [place] [id number] Sunny Moore MD [address] [facility] [address] [place] [address] PERC BEN CLOSE W/IMPLANT [id number] documented as of this encounter Procedures Procedure [...] documented as of this encounter Care Teams [facility] Specialist Relationship Specialty Start Date End Date Osmel Moe MD PCP - General 12/20/16 Gomez Raymond MD Consulting Physician Urology 10/04/21 James Suarez MD Consulting Physician Cardiovascular Disease 10/05/21 Ramo Squires MD Consulting Physician Urology 01/23/22 James Juarez MD Referring Physician Dermatology 03/03/23 Sera Vieira RN [address] [place] [address] [place] [address] Classifier 04/08/24 05/06/24 Bisi Gonzales OD [address] [place] [address] [facility] Op[facility] 05/24/25 documented as of this encounter
--- OUTSIDE RECORDS SUMMARY | 2025-08-23 12:53 | XMS_ITS | Clinical Summary ---
Author Organization [facility] Address [address] [place] [address] Care Team Providers Care Mounter Sousaphones Name Role Phone Osmel Moe MD Primary Care Provider [phone] Gomez Raymond MD Unavailable James Suarez MD Unavailable [phone] Ramo Squires MD Unavailable [phone] James Juarez MD Unavailable Bisi Gonzales OD Unavailable Allergies Active Allergy Reactions Criticality Noted [...] capsule 500 mg. 0 04/22/20 12 Active vitamin B complex capsule Take 1 capsule by mouth daily Active cholecalciferol (VITAMIN D-3) 2000 unit tablet Take 1 tablet (2,000 Units total) by mouth daily Active cyanocobalamin (Vitamin B-12) 1,000 mcg sublingual tablet Take 1 tablet (1,000 mcg total) by mouth daily Active rivaroxaban (Xarelto) 15 mg tablet Take 1 tablet (15 mg total) by mouth daily with breakfast 30 tablet 11 05/16/20 25 Active polyethylene glycol (MIRALAX) 17 gram/dose bulk powder Take 17 g by mouth daily as needed Active amLODIPine (NORVASC) 10 mg tabletIndicatio ns:Primary hypertension Take 1 tablet (10 mg total) by mouth daily 30 tablet 3 06/06/[address] (PROTONIX) 40 mg EC tabletIndicatio ns:GI Bleed Take 1 tablet (40 mg total) by mouth 2 (two) times a day 60 tablet 3 06/06/20 25 Active lisinopriL (PRINIVIL,ZESTR IL) 5 mg tablet Take 1 tablet (5 mg total) by mouth every morning 30 tablet 11 06/07/20 25 Active levETIRAcetam (KEPPRA) 750 mg tablet Take 1 tablet (750 mg total) by mouth 2 (two) times a day 60 tablet 06/07/20 25 026 Active divalproex ER (DEPAKOTE ER) 500 mg 24 hr tablet Take 3 tablets (1,500 mg total) by mouth daily 90 tablet 11 06/07/20 25 026 Active diphenhydrAMINE (BENADRYL) 25 mg capsule 2 tabs at bedtime the night prior to test and 2 tabs the morning of the test. 4 tablet/caps ule 06/29/20 25 Active allopurinoL (ZYLOPRIM) 300 mg tabletIndicatio ns:History of gout Take 1 tablet (300 mg total) by mouth daily 90 tablet 1 08/22/20 25 Active allopurinoL (ZYLOPRIM) 300 mg tablet 05/17/20 25 025 Discontinued predniSONE (DELTASONE) 20 mg tablet 3 tabs 3 pm day before the exam then 3 tabs at bedtime night before exam. 3 tabs morning of exam 9 tablet 06/29/20 25 025 Discontinued(Th erapy completed) famotidine (PEPCID) 20 mg tablet At bedtime the night prior to test and 1 tab the morning of the test. 2 tablet 06/29/20 25 025 Discontinued(Al ternate therapy) Active Problems Problem Noted Date Diagnosed Date Paroxysmal A-fib 07/25/2025 H/O: GI bleed 07/25/2025 Focal seizures 04/13/2025 Assessment & Plan (08/11/2025 6:37 PM BILL PEDDLER): Patient is maintained on Keppra she has a follow-up with Neurology for seizures on 08/23/2025 and her status post CVA. Daughters who is with her the significant historian does not describe any seizure activities. Patient has a component of depression and some fatigue this I think is circumstantial from having strokes her age and multiple health problems. Assessment & Plan (04/13/2025 1:59 PM CDT): New left sided arm weakness and sensory deficit along with left peripheral visual field deficit noted at 1324. 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 Pt has been of Xarelto for Atrial fibrillation since admission with KCentra given in the ED to reverse. >Patient had several episodes of bilateral upper extremity tremors with no LOC and no post-ictal state, with EEG detecting focal seizures likely secondary to the stroke Started on Keppra 2g load with 500mg BID afterwards -Neuro stroke team recommends patient can remain on regular inpatient floor with Q4 neuro checks -Keep SBP <160, no anticoagulation CTA Head and neck with premedication for contrast allergy Hold Xarelto for 14 days then likely switch to Eliquis if affordable Continue Q4 neuro checks Delirium 04/11/2025 Assessment & Plan (04/13/2025 7:15 AM CDT): Hospital acquired delirium likely with patient age and waxing and waning mental status.Daughter mentioned patient had previously become delirious during hospitalizations (thinking that she was in a barn, seeing objects that were not there) and that symptoms improved when she went home -Delirium precautions in place Assessment & Plan (04/12/2025 9:45 AM CDT): Hospital acquired delirium likely with patient age and waxing and waning mental status.Daughter mentioned patient had previously become delirious during hospitalizations (thinking that she was in a barn, seeing objects that were not there) and that symptoms improved when she went home -Delirium precautions in place Assessment & Plan (04/11/2025 4:06 PM CDT): Hospital acquired delirium likely with patient age and waxing and waning mental status.Daughter mentioned patient had previously become delirious during hospitalizations (thinking that she was in a barn, seeing objects that were not there) and that symptoms improved when she went home -Delirium precautions in place Cerebrovascular accident (CVA) with intracranial hemorrhage 04/11/2025 Assessment & Plan (08/11/2025 6:32 PM BILL PEDDLER): Patient is under care of Neurology she is ambulating with a cane she has no hemiparesis at this time. She does have some seizures and again this is managed by Neurology [facility]. 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 Pt has been of Xarelto for Atrial fibrillation since admission with KCentra given in the ED to reverse. >Patient had several episodes of bilateral upper extremity tremors with no LOC and no post-ictal state, with EEG detecting focal seizures likely secondary to the stroke Started on Keppra 2g load with 500mg BID afterwards -Neuro stroke team recommends patient can remain on regular inpatient floor with Q4 neuro checks -Keep SBP <160, no anticoagulation CTA Head and neck with premedication for contrast allergy Hold Xarelto for 14 days then likely switch to Eliquis if affordable Continue Q4 neuro checks Assessment & Plan (04/12/2025 1:18 PM CDT): New left sided arm weakness and sensory deficit along with left peripheral visual field deficit noted at 1324. 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 Pt has been of Xarelto for Atrial fibrillation since admission with KCentra given in the ED to reverse. -Keep SBP <160, no anticoagulation -Neuro stroke team recommends patient can remain on regular inpatient floor with Q4 neuro checks Appreciate formal recommendations Assessment & Plan (04/11/2025 2:48 PM CDT): New left sided arm weakness and sensory deficit along with left peripheral visual field deficit noted at 1324. 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 Pt has been of Xarelto for Atrial fibrillation since admission with KCentra given in the ED to reverse. -Keep SBP <160, no anticoagulation -Will transfer patient to neurology service GIB (gastrointestinal bleeding) 04/09/2025 Anemia 04/09/2025 Assessment & Plan (04/13/2025 1:59 PM CDT): Hx of melanic stools. No Hx NSAID use OSH noted HgB 3.9 s/p 3 units. CTAP With and without noted no acute process and stable psoas abscess, no diverticula or esophagitis or active extravasation. Repeat HgB10.6 in the ED. HgB downtrending from 11to 9.6 concern for rebleeding -GI Consulted recs EGD noted inflammation but no signs of leonora bleeding If stable HgB and no new signs of blood in stool can reasonably do colonoscopy in outpatient setting but will discuss with family on preferences -GI Prophylaxis Pantroprazole 40mg BID -H Pylori antigen stool sent on 04/13 -Trend CBC daily -IV Iron repletement can be considered Assessment & Plan (04/12/2025 1:18 PM CDT): Hx of melanic stools. No Hx NSAID use OSH noted HgB 3.9 s/p 3 units. CTAP With and without noted no acute process and stable psoas abscess, no diverticula or esophagitis or active extravasation. Repeat HgB10.6 in the ED. HgB downtrending from 11to 9.6 concern for rebleeding -GI Consulted appreciate recs EGD noted inflammation but no signs of leonora bleeding If stable HgB and no new signs of blood in stool can reasonably do colonoscopy in outpatient setting -GI Prophylaxis Pantroprazole 40mg BID -H Pylori antigen stool -Trend CBC BID -IV Iron repletement -low concern for SBP or liver cirrhosis d/c ceftriaxone and Flagyl Assessment & Plan (04/11/2025 4:06 PM CDT): Hx of melanic stools. No Hx NSAID use OSH noted HgB 3.9 s/p 3 units. CTAP With and without noted no acute process and stable psoas abscess, no diverticula or esophagitis or active extravasation. Repeat HgB10.6 in the ED. HgB downtrending from 11to 9.6 concern for rebleeding -GI Consulted appreciate recs EGD noted inflammation but no signs of leonora bleeding -GI Prophylaxis Pantroprazole 40mg BID -H Pylori antigen stool -Trend CBC BID -IV Iron repletement -low concern for SBP or liver cirrhosis d/c ceftriaxone and Flagyl Assessment & Plan (04/10/2025 7:02 AM CDT): Hx of melanic stools. No Hx NSAID use OSH noted HgB 3.9 s/p 3 units. CTAP With and without noted no acute process and stable psoas abscess, no diverticula or esophagitis or active extravasation. Repeat HgB10.6 in the ED. -GI Consulted appreciate recs NPO Midnight on 04/10 for tentative colonoscopy 04/11 -GI Prophylaxis Pantroprazole 40mg BID -H Pylori antigen stool -Trend CBC BID -iron panel with ferritin along with ferritin and B12 to assess chronic anemia -low concern for SBP or liver cirrhosis d/c ceftriaxone and Flagyl Assessment & Plan (04/09/2025 5:43 PM CDT): Hx of melanic stools. No Hx NSAID use OSH noted HgB 3.9 s/p 3 units. CTAP With and without noted no acute process and stable psoas abscess, no diverticula or esophagitis or active extravasation. Repeat HgB10.6 in the ED. -GI Consulted appreciate recs NPO Midnight on 04/10 for tentative colonoscopy 04/11 -GI Prophylaxis Pantroprazole 40mg BID -H Pylori antigen stool -Trend CBC BID -iron panel with ferritin along with ferritin and B12 to assess chronic anemia -low concern for SBP or liver cirrhosis d/c ceftriaxone and Flagyl Anticoagulated 04/09/2025 Assessment & Plan (04/13/2025 7:15 AM CDT): On Metoprolol and Xarelto S/p KCentra -hold Xarelto in setting of possible GI bleed -Metoprolol 25mg Assessment & Plan (04/12/2025 9:45 AM CDT): On Metoprolol and Xarelto S/p KCentra -hold Xarelto in setting of possible GI bleed -Metoprolol 25mg Assessment & Plan (04/11/2025 4:06 PM CDT): On Metoprolol and Xarelto S/p KCentra -hold Xarelto in setting of possible GI bleed -Metoprolol 25mg Assessment & Plan (04/10/2025 7:02 AM CDT): On Metoprolol and Xarelto S/p KCentra -hold Xarelto in setting of possible GI bleed -Restart Metoprolol Assessment & Plan (04/09/2025 5:43 PM CDT): On Metoprolol and Xarelto S/p KCentra -hold Xarelto in setting of possible GI bleed -Restart Metoprolol DIAZ (acute kidney injury) 04/09/2025 Assessment & Plan (04/13/2025 7:15 AM CDT): Cr baseline (0.85) on admission 1.40 likely prerenal in the setting of hypovolemia 2/2 to GI losses. Trend BMP -Avoid nephrotoxic agents -S/p 1L LR Assessment & Plan (04/12/2025 1:31 PM CDT): Cr baseline (0.85) on admission 1.40 likely prerenal in the setting of hypovolemia 2/2 to GI losses. Trend BMP -Avoid nephrotoxic agents -S/p 1L LR Assessment & Plan (04/11/2025 7:08 AM CDT): Cr baseline (0.85) on admission 1.40 likely prerenal in the setting of hypovolemia 2/2 to GI losses. Trend BMP -Avoid nephrotoxic agents Assessment & Plan (04/10/2025 7:02 AM CDT): Cr baseline (0.85) on admission 1.40 likely prerenal in the setting of hypovolemia 2/2 to GI losses. Trend BMP -Avoid nephrotoxic agents Assessment & Plan (04/09/2025 5:34 PM CDT): Cr baseline (0.85) on admission 1.40 likely prerenal in the setting of hypovolemia 2/2 to GI losses. Trend BMP -Avoid nephrotoxic agents Black tarry stools 04/09/2025 Assessment & Plan (04/13/2025 1:59 PM CDT): Hx of melanic stools. No Hx NSAID use OSH noted HgB 3.9 s/p 3 units. CTAP With and without noted no acute process and stable psoas abscess, no diverticula or esophagitis or active extravasation. Repeat HgB10.6 in the ED. HgB downtrending from 11to 9.6 concern for rebleeding -GI Consulted recs EGD noted inflammation but no signs of leonora bleeding If stable HgB and no new signs of blood in stool can reasonably do colonoscopy in outpatient setting but will discuss with family on preferences -GI Prophylaxis Pantroprazole 40mg BID -H Pylori antigen stool sent on 04/13 -Trend CBC daily -IV Iron repletement can be considered Assessment & Plan (04/12/2025 1:18 PM CDT): Hx of melanic stools. No Hx NSAID use OSH noted HgB 3.9 s/p 3 units. CTAP With and without noted no acute process and stable psoas abscess, no diverticula or esophagitis or active extravasation. Repeat HgB10.6 in the ED. HgB downtrending from 11to 9.6 concern for rebleeding -GI Consulted appreciate recs EGD noted inflammation but no signs of leonora bleeding If stable HgB and no new signs of blood in stool can reasonably do colonoscopy in outpatient setting -GI Prophylaxis Pantroprazole 40mg BID -H Pylori antigen stool -Trend CBC BID -IV Iron repletement -low concern for SBP or liver cirrhosis d/c ceftriaxone and Flagyl Assessment & Plan (04/11/2025 4:06 PM CDT): Hx of melanic stools. No Hx NSAID use OSH noted HgB 3.9 s/p 3 units. CTAP With and without noted no acute process and stable psoas abscess, no diverticula or esophagitis or active extravasation. Repeat HgB10.6 in the ED. HgB downtrending from 11to 9.6 concern for rebleeding -GI Consulted appreciate recs EGD noted inflammation but no signs of leonora bleeding -GI Prophylaxis Pantroprazole 40mg BID -H Pylori antigen stool -Trend CBC BID -IV Iron repletement -low concern for SBP or liver cirrhosis d/c ceftriaxone and Flagyl Assessment & Plan (04/10/2025 7:02 AM CDT): Hx of melanic stools. No Hx NSAID use OSH noted HgB 3.9 s/p 3 units. CTAP With and without noted no acute process and stable psoas abscess, no diverticula or esophagitis or active extravasation. Repeat HgB10.6 in the ED. -GI Consulted appreciate recs NPO Midnight on 04/10 for tentative colonoscopy 04/11 -GI Prophylaxis Pantroprazole 40mg BID -H Pylori antigen stool -Trend CBC BID -iron panel with ferritin along with ferritin and B12 to assess chronic anemia -low concern for SBP or liver cirrhosis d/c ceftriaxone and Flagyl Assessment & Plan (04/09/2025 5:43 PM CDT): Hx of melanic stools. No Hx NSAID use OSH noted HgB 3.9 s/p 3 units. CTAP With and without noted no acute process and stable psoas abscess, no diverticula or esophagitis or active extravasation. Repeat HgB10.6 in the ED. -GI Consulted appreciate recs NPO Midnight on 04/10 for tentative colonoscopy 04/11 -GI Prophylaxis Pantroprazole 40mg BID -H Pylori antigen stool -Trend CBC BID -iron panel with ferritin along with ferritin and B12 to assess chronic anemia -low concern for SBP or liver cirrhosis d/c ceftriaxone and Flagyl Blood loss anemia 04/09/2025 Assessment & Plan (08/11/2025 6:34 PM BILL PEDDLER): Patient's hemoglobin is 10.1 upon discharge from hospital March of 2025 not an active problem at this time Assessment & Plan (04/13/2025 1:59 PM CDT): Hx of melanic stools. No Hx NSAID use OSH noted HgB 3.9 s/p 3 units. CTAP With and without noted no acute process and stable psoas abscess, no diverticula or esophagitis or active extravasation. Repeat HgB10.6 in the ED. HgB downtrending from 11to 9.6 concern for rebleeding -GI Consulted recs EGD noted inflammation but no signs of leonora bleeding If stable HgB and no new signs of blood in stool can reasonably do colonoscopy in outpatient setting but will discuss with family on preferences -GI Prophylaxis Pantroprazole 40mg BID -H Pylori antigen stool sent on 04/13 -Trend CBC daily -IV Iron repletement can be considered Assessment & Plan (04/12/2025 1:18 PM CDT): Hx of melanic stools. No Hx NSAID use OSH noted HgB 3.9 s/p 3 units. CTAP With and without noted no acute process and stable psoas abscess, no diverticula or esophagitis or active extravasation. Repeat HgB10.6 in the ED. HgB downtrending from 11to 9.6 concern for rebleeding -GI Consulted appreciate recs EGD noted inflammation but no signs of leonora bleeding If stable HgB and no new signs of blood in stool can reasonably do colonoscopy in outpatient setting -GI Prophylaxis Pantroprazole 40mg BID -H Pylori antigen stool -Trend CBC BID -IV Iron repletement -low concern for SBP or liver cirrhosis d/c ceftriaxone and Flagyl Assessment & Plan (04/11/2025 4:06 PM CDT): Hx of melanic stools. No Hx NSAID use OSH noted HgB 3.9 s/p 3 units. CTAP With and without noted no acute process and stable psoas abscess, no diverticula or esophagitis or active extravasation. Repeat HgB10.6 in the ED. HgB downtrending from 11to 9.6 concern for rebleeding -GI Consulted appreciate recs EGD noted inflammation but no signs of leonora bleeding -GI Prophylaxis Pantroprazole 40mg BID -H Pylori antigen stool -Trend CBC BID -IV Iron repletement -low concern for SBP or liver cirrhosis d/c ceftriaxone and Flagyl Other fatigue 04/08/2025 Assessment & Plan (08/11/2025 6:38 PM BILL PEDDLER): Patient's fatigue she is 85 years old she has had several strokes from cerebral bleed she has recovered she walks with a cane. Not demented she really expresses decline in quality life with aging. She has a component of some sadness with a change in his life. It is my impression antidepressants not going to help her and further workup for fatigue not indicated. She has had anemia from GI bleeds secondary to Eliquis. 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 CTAP shows improving abscess Assessment & Plan (04/12/2025 9:45 AM CDT): Hx R psoas abscess drain placed 03/01/24 and removed after 5 weeks. CTAP shows improving abscess Assessment & Plan (04/11/2025 7:08 AM CDT): Hx R psoas abscess drain placed 03/01/24 and removed after 5 weeks. CTAP shows improving abscess Assessment & Plan (04/10/2025 7:03 AM CDT): Hx R psoas abscess drain placed 03/01/24 and removed after 5 weeks. CTAP shows improving abscess Assessment & Plan (04/09/2025 5:34 PM CDT): Hx R psoas abscess drain placed 03/01/24 and removed after 5 weeks. CTAP shows improving abscess Assessment & Plan (03/30/2024 12:06 PM CDT): [...] daughter is encouraged to keep this appointment. BCC (basal cell carcinoma), lip 07/31/2022 Overview (07/31/2022): Added automatically from request for surgery [id number] Melanocytic nevus of right upper extremity 07/31 Overview (07/31/2022): Added automatically from request for surgery [id number] Atrial fibrillation 11/08/2021 Assessment & Plan (08/11/2025 6:44 PM BILL PEDDLER): PATIENT IS SCHEDULED FOR LEFT ATRIAL APPENDAGE OCCLUSION PROCEDURE AUGUST 23, 2025 Assessment & Plan (05/14/2025 3:25 PM CDT): History of chronic atrial fibrillation patient has been on Eliquis for several years she developed anemia and a GI bleed Eliquis was discontinued on 04/09/2025 and admitted to [facility] for GI bleed. On 04/13/2025 patient had right-sided CVA transferred to [facility] Assessment & Plan (04/13/2025 7:15 AM CDT): On Metoprolol and Xarelto S/p KCentra -hold Xarelto in setting of possible GI bleed -Metoprolol 25mg Assessment & Plan (04/12/2025 9:45 AM CDT): On Metoprolol and Xarelto S/p KCentra -hold Xarelto in setting of possible GI bleed -Metoprolol 25mg Assessment & Plan (04/11/2025 4:06 PM CDT): On Metoprolol and Xarelto S/p KCentra -hold Xarelto in setting of possible GI bleed -Metoprolol 25mg Assessment & Plan (04/10/2025 7:02 AM CDT): On Metoprolol and Xarelto S/p KCentra -hold Xarelto in setting of possible GI bleed -Restart Metoprolol Assessment & Plan (04/09/2025 5:43 PM CDT): On Metoprolol and Xarelto S/p KCentra -hold Xarelto in setting of possible GI bleed -Restart Metoprolol Assessment & Plan (02/07/2025 7:04 PM CDT): Chronic atrial fibrillation patient's Eliquis she continues see extractor and wringer operator she is doing well. Chest pain no palpitations no evidence of he needs CVA or TIA symptoms Assessment & Plan (06/23/2024 2:24 PM CDT): Chronic problems stable patient remains on 15 mg daily Assessment & Plan (03/10/2024 8:20 AM CDT): This is chronic stable. Please continue Xarelto. Monitor vital signs for RVR. Assessment & Plan (11/28/2022 6:04 PM BILL PEDDLER): Patient's atrial fibrillation she applied for life insurance she was declined because of atrial fibrillation and protein in the urine. She want to make sure everything was being done regarding her problems. I explained to her atrial fibrillation importance of controlling rate as well as anticoagulation therapy. Patient is here with her daughter understood information given. Assessment & Plan (11/08/2021 1:35 PM BILL PEDDLER): Patient is seen by extractor and wringer operator last 30 days she remains on Eliquis at this time fibrillation new onset less than 90 days ago. Patient is tolerating the Eliquis today of her pulses excellent. See her back in the next 4 months. Will continue Eliquis at this time Vertigo 10/01/2021 Assessment & Plan (10/01/2021 10:34 AM BILL PEDDLER): Dizziness for last 2-3 days patient has [...] 09/20/2020 Assessment & Plan (09/20/2020 3:49 PM BILL PEDDLER): Patient developed pain right shoulder after breast [...] own Assessment & Plan (08/07/2023 2:11 PM BILL PEDDLER): No complaints of joint pains whatsoever at [...] day helps.. Recommend patient go to a [facility] physical therapy see if stretching exercise may help her leg and possibly a shoulders. Assessment & Plan (09/19/2020 4:08 PM BILL PEDDLER): Patient having joint pains multiple sites and yesterday was a neck and shoulders today's are time sometimes is a her legs.. His problems getting up and down out of chairs once she has completed a process she is a back to baseline with little to no pain. This started several months ago.. At this time as this patient on the whole [facility] it could be aggravating the problem but I am not convinced it is calls her myalgia and joint pain. She is using Tylenol multiple times a day without much benefit. Diabetes mellitus type II, controlled 05/27/2019 Assessment & Plan (04/13/2025 7:15 AM CDT): Hgb A1c 5.7-6.9 Not on any medications at home Assessment & Plan (04/12/2025 9:45 AM CDT): Hgb A1c 5.7-6.9 Not on any medications at home Assessment & Plan (04/11/2025 4:06 PM CDT): Hgb A1c 5.7-6.9 Not on any medications at home Assessment & Plan (04/10/2025 7:03 AM CDT): Hgb A1c 5.7-6.9 Assessment & Plan (04/09/2025 5:34 PM CDT): Hgb A1c 5.7-6.9 Assessment & Plan (02/07/2025 7:06 PM CDT): Diabetes very well controlled HgbA1c 5.7-6.9 over the past year will update HgbA1c today patient is on no medications. Diabetic foot exam current diabetic eye exam current without diabetic retinopathy.. No polyuria polyphagia polydipsia. Assessment & Plan (08/10/2024 3:07 PM BILL PEDDLER): Patient advised me she had an eye exam 1 week ago no diabetic eye disease found medical records report pending. Diabetes very well controlled hemoglobin HgbA1c less than 7 for the past 4 years. Current HgbA1c is results pending Assessment & Plan (08/07/2023 2:12 PM BILL PEDDLER): Diabetes has been stable no HgbA1c today. [...] (H) Assessment & Plan (10/02/2021 9:48 AM BILL PEDDLER): Diet controlled, monitor glucose while inpatient and [...] wellness visit, subsequent 05/27 Assessment & Plan (08/11/2025 6:47 PM BILL PEDDLER): History and physical completed patient's health risk assessment health maintenance reviewed and addressed. She is here with her daughter and discussed the patient's overall well-being. Patient is somewhat depressed quality life since she is has gotten older she has had a stroke with some recovery. He has had hospitalization with complications from cerebral hemorrhage and bleeding from anticoagulants. Strength has gone down she would like to be far more active. Patient is very well taken care of by her daughter. Patient has 0 dementia she has an upcoming procedure of a left atrial appendage closure cardiology in the next few weeks. Assessment & Plan (08/10/2024 3:08 PM BILL PEDDLER): History and physical completed patient's health risk assessment health maintenance reviewed and addressed. Her last annual exam with me this patient has been admitted to hospital for urinary tract obstruction kidney stone perinephric abscess. Of which she has recovered from. Patient is doing well she is 84 years old she has absolutely no dementia. Assessment & Plan (08/07/2023 2:07 PM BILL PEDDLER): History and physical completed patient's health risk [...] shot was 2 weeks ago at local [facility]. Order for bone density is been placed. [...] hours. Assessment & Plan (11/05/2018 6:23 PM BILL PEDDLER): Patient describes a neuropathy of sensation of [...] she reports improvement today compared to yesterday HTN (hypertension) 02/05/2014 Overview (12/26/2016): Hypertension Assessment & Plan (04/13/2025 7:15 AM CDT): On amlodipine and HCTZ, valsartan Holding HCTZ in setting of DIAZ Originally held Valsartan in setting of hyperkalemia on admission but now resolved and BP WNL, can restart if hypertensive and DIAZ resolves -Amlodipine 5mg daily Assessment & Plan (04/12/2025 9:45 AM CDT): On amlodipine and HCTZ, valsartan Holding HCTZ in setting of DIAZ Originally held Valsartan in setting of hyperkalemia on admission but now resolved and BP WNL, can restart if hypertensive and DIAZ resolves -Amlodipine 5mg daily Assessment & Plan (04/11/2025 4:06 PM CDT): On amlodipine and HCTZ, valsartan Holding HCTZ in setting of DIAZ Originally held Valsartan in setting of hyperkalemia on admission but now resolved and BP WNL, can restart if hypertensive and DIAZ resolves -Amlodipine 5mg daily Assessment & Plan (04/10/2025 10:05 AM CDT): On amlodipine and HCTZ, valsartan Holding HCTZ in setting of DIAZ Hold valsartan 2/2 to current hyperkalemia -On Amlodipine Assessment & Plan (04/09/2025 5:43 PM CDT): On amlodipine and HCTZ, valsartan Holding HCTZ in setting of DIAZ Hold valsartan 2/2 to current hyperkalemia -restart amlodipine Assessment & Plan (02/07/2025 7:07 PM CDT): Pressures concerning with a diastolic of 48 will adjust medication by reducing amlodipine 5 mg daily she will remain on valsartan/HCTZ 80/12.5 mg daily metoprolol 25 mg daily. Patient has no overt evidence of CHF and she is functioning very well. Assessment & Plan (08/10/2024 2:59 PM BILL PEDDLER): Blood pressure 134/36 patient feels well.. Gap [...] 300 mg per day down to 100. [place] some improvement but still feels fatigued worn out. This time reducing her metoprolol to 50 mg daily from previous dose of 100. I am going to hold her amlodipine. Going to see her back in approximately 3 weeks. 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 Patient's concern regarding [...] therapy Assessment & Plan (11/08/2021 1:33 PM BILL PEDDLER): Blood pressures from home reviewed there are acceptable. Patient's blood pressure today is wide range between systolic and diastolic without any precise reason. Patient's echocardiogram was reviewed there was no significant valvular disease in ejection pressure was 70-75% no change in therapy. Assessment & Plan (10/08/2021 2:13 PM BILL PEDDLER): Blood pressure well reviewed patient now on new medication hydralazine and amlodipine again he has a follow-up appointment cardiology in the next 24 hours. No changes made in medications today Assessment & Plan (10/02/2021 9:48 AM BILL PEDDLER): Blood pressure has been severely elevated since [...] therapy. Assessment & Plan (09/19/2020 4:09 PM BILL PEDDLER): Blood pressure is slightly elevated today no [...] appointment. Assessment & Plan (11/05/2018 6:25 PM BILL PEDDLER): Hypertension elevated today will continue reserves check [...] profile. 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 Urine clear today. Monitor. Perinephric abscess 03/10/2024 04/08/20 25 Assessment & Plan (08/10/2024 2:56 PM BILL PEDDLER): Patient advised me abscesses resolved through Wound [...] 03/15/2023 Assessment & Plan (11/28/2022 6:06 PM BILL PEDDLER): Advised patient use lactate when using milk products. For information from up-to-date today regarding high-fiber diet. Not having any blood in his stool or mucus in his stools. She is not having overt diarrhea. Kidney stones 12/12/2021 03/15/2024 Overview (12/12/2021): Added automatically from request for surgery [id number] Gross hematuria 12/12/2021 03/30/2024 Overview (12/12/2021): Added automatically from request for surgery [id number] Assessment & Plan (03/22/2024 10:30 AM CDT): [...] procedure Assessment & Plan (10/08/2021 1:43 PM BILL PEDDLER): Hospital follow-up admission date 10/02/2021 discharge date 10/05/2021.. Diagnosis acute cystitis with hematuria. 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 Patient has been given referral to [facility] urologist a few weeks. Patient's blood [...] for both referrals. Severe malnutrition 10/03/2021 02/29/20 Pericardial effusion 10/02/2021 022 Assessment & Plan (10/02/2021 9:49 AM BILL PEDDLER): Seen on CT on presentation. Does not seem to be hemodynamically significant. Echocardiogram ordered and Cardiology consulted. Right renal mass 10/02/2021 04/01/2024 Assessment & Plan (10/08/2021 2:12 PM BILL PEDDLER): Referral to urologist sent by this office. Assessment & Plan (10/02/2021 9:47 AM BILL PEDDLER): Seen on CT on presentation. CT urogram ordered per radiology recs. Urology consulted. Nausea and vomiting in adult 10/01/2021 03/15/2023 Assessment & Plan (10/08/2021 1:45 PM BILL PEDDLER): Nausea vomiting resolved once UTI was treated Assessment & Plan (10/01/2021 10:33 AM BILL PEDDLER): Nausea and vomiting started around September 09 is gotten progressively worse. Patient cannot hold down solids. Denies any blood in his stools or vomiting blood. No vomiting or bowel. No abdominal pain. Patient's unstable in appearance her typical self referred to emergency room for hospital admission EGD lab workup dehydration etc.. Acute cystitis with hematuria 10/01/2021 02/28/2022 Assessment & Plan (10/08/2021 1:44 PM BILL PEDDLER): Patient's referral with Urology cystoscopy is scheduled heart to be done. 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 Discovered on recent hospitalization Assessment & Plan (10/02/2021 9:52 AM BILL PEDDLER): UA on presentation showed pyuria with 4+ leuk esterase and 3+ bacteria present. Patient's lethargy and decreased appetite are likely symptoms infection, though it seems unlikely to explain the nausea, vomiting, and diarrhea that were present for approximately the past 2 weeks in resolved 3 days ago. A COVID-19 test at [facility] in [place] was reportedly negative, but the symptoms are [...] 04/24/2021 Assessment & Plan (08/21/2020 3:48 PM BILL PEDDLER): Patient having pain 3 4 days a [...] syndrome on left 01/07/2018 12/02/2019 Overview (01/07/2018): Mgep-gh-ydvcyghd discomfort no surgical intervention needed if problems [...] date. Assessment & Plan (11/05/2018 6:25 PM BILL PEDDLER): Data hemoglobin HgbA1c today patient is having [...] Encounters Date Type Department Care Team Description 08/23/2025 12:00 PM BILL PEDDLER Emergency [facility] [address] [place] [address] 08/23/2025 Telephone [facility] Scheduling [address] [place] [address] Parish Hillman NP Scheduling Appointments 08/12/2025 10:45 AM BILL PEDDLER Pre-Admission Testing [facility] Pre Anesthesia Testing [address] [place] [address] 08/11/2025 3:20 PM BILL PEDDLER Lab [facility] [address] [place] [address] Hyperlipidemia, unspecified hyperlipidemia type 08/11/2025 2:00 PM BILL PEDDLER Office Visit [facility] [address] [facility] [address] [place] [address] Osmel Moe MD Hyperlipidemia, unspecified hyperlipidemia type (Primary Dx); Blood loss anemia; Cerebrovascular accident (CVA) with intracranial hemorrhage (HCC); Diabetes mellitus type II, controlled; Other fatigue; Longstanding persistent atrial fibrillation (HCC); Medicare annual wellness visit, subsequent 07/25/2025 Orders Only [facility] Cardiac Catheterization Lab [address] [place] [address] Sunny Moore MD Paroxysmal A-fib (HCC) (Primary Dx); H/O: GI bleed 07/14/2025 12:47 PM CDT - 07/14/2025 11:59 PM CDT Hospital Encounter [facility] Imaging and Radiology [address] [place] [address] Paroxysmal A-fib (HCC) Discharge Disposition: Discharge to home or self care 06/29/2025 9:00 AM CDT Office Visit [facility] at [address] [place] [address] Ivone Dickerson NP Paroxysmal A-fib (HCC) (Primary Dx) 06/29/2025 Telephone [facility] [address] [facility] [address] [place] [address] Irwin Jeronimo 06/22/2025 Telephone [facility] [address] [place] [address] Osmel Moe MD parking placard application ; Alcohol Questions 06/14/2025 Telephone [facility] [address] [facility] [address] [place] [address] Karolina Jackson MA Scheduling Appointments (LAAO) 06/14/2025 Orders Only [facility] at [address] [place] [address] Sunny Moore MD Paroxysmal atrial fibrillation (HCC) (Primary Dx) 06/09/2025 9:30 AM CDT Office Visit [facility] [address] [facility] 2nd Floor [address] [place] [phone] Abelardo Azar MD Gastrointestinal hemorrhage, unspecified gastrointestinal hemorrhage type (Primary Dx); Iron deficiency anemia, unspecified iron deficiency anemia type; Paroxysmal atrial fibrillation (HCC) 06/06/2025 Telephone [facility] [address] [place] [address] Osmel Moe MD medication refill 05/31/2025 1:30 PM CDT Office Visit [facility] at [address] [place] [address] Sunny Moore MD Paroxysmal A-fib (HCC) (Primary Dx) 05/24/2025 1:40 PM CDT Office Visit [facility] Stroke [address] [facility] [address] [place] [address] Parish Hillman NP Cerebrovascular accident (CVA) with intracranial hemorrhage (HCC) (Primary Dx); 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; H/O ischemic 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; Hospital discharge follow-up; History of chronic atrial fibrillation; On anticoagulant therapy; Focal seizures (HCC) from Last 3 Months Immunizations Immunization Administration Dates Next Due Influenza, Quad, Adjuvantate d, Intramuscular 07/31/2021 Influenza, Quadrivalent, Hig h Dose, Preservative Free, Intrr 07/03/2023,06/30/2022,05/19/2020 Influenza, Quadrivalent, Spl it, Preservative Free, Intramuscular 07/14/2018 Influenza, Trivalent, High D ose, Split, Preservative Free, Intramuscular 07/07/2025,07/21/2024,08/06/2017,07/11,06/22/2015,07/05/2011 Influenza, Trivalent, IM (MDV) 06/22/2014 PPD TEST 03/11/2024 Cyzone SARS-CoV-2 Monovalent Vaccination (12+ Yrs) PURPLE 12/01/2020,12/01/2020,11/10/2020,11/10 Pneumococcal Conjugate PCV 13 07/11/2016 Pneumococcal Polysaccharide PPV23 07/14/2018 RSV Vaccine, Pref, Recombina nt, Subunit, Adjuvanted, PF, IM (Arexvy) 12/26/2023 Tdap 01/28/2019 ZOSTER Recombinant 09/30/2019,09/30/2019, 019 Surgical History Surgery Date Site/Laterality Comments TUBAL LIGATION 1959' Tubal ligation OTHER SURGICAL HISTORY 1959' Ectopic , ruptured: Salpingectomy BREAST SURGERY 09/22/2009 - 09/21/2010 Rt breast cancer: Femara & lumpectomy COLONOSCOPY 09/22/2012 - 09/21/2013 CATARACT EXTRACTION, BILATERAL APPENDECTOMY Medical History Medical History Date Comments Cancer (HCC) R breast-lumpect yayo Headache, tension-type Hypertension Migraine Hx Hyperlipemia Kidney stones Arrhythmia atrial fibrillat ion Delayed emergence from general anesthesia Gout DIAZ (acute kidney injury) 04/09/2025 Delirium 04/11/2025 Atrial fibrillation (HCC) Type 2 diabetes mellitus Vertigo GIB (gastrointestinal bleeding) Black tarry stools BCC (basal cell carcinoma), lip Blood loss anemia Stroke (HCC) Focal seizures Motion sickness Unsteady gait Ambulates with cane Syncope Cataract History of transfusion Memory deficit daughter attends appts with her Family History Medical History Relation Name Comments [...] Answered Alcohol Use Standard Drinks/Week Comments Yes 1 (1 standard drink = 0.6 oz pur e alcohol) [facility] Utilities Answer Date Recorded In the past 12 months has th e electric, gas, oil, or water company [...] any clubs o r organizations such as synagogue groups, unions, fraternal or athletic groups, or [...] place to sleep or slept in a alf (including now)? No 10/16/2021 PHQ-9 Answer Date [...] any time in the past 12 m [facility], were you homeless or living in a alf (including now)? No 04/08/2024 AUDIT-C Answer Date [...] on file Legal Sex Female 3:07 PM BILL PEDDLER Gender Identity Not on file Sexual Orientation [...] Sign Reading Time Taken Comments Blood Pressure 177/60 08/12/2025 11:11 AM BILL PEDDLER took meds this morning before 8am, [employer]OB RE[employer]UITER notified Pulse 56 08/12/2025 11:11 AM BILL PEDDLER Temperature 36.6 C (97.9 F) 08/12/2025 11:11 AM BILL PEDDLER Respiratory Rate 16 08/12/2025 11:1 1 AM BILL PEDDLER Oxygen Saturation 99% 08/12/2025 11: 11 AM BILL PEDDLER Inhaled Oxygen Concentration - - Weight 58 kg (127 lb 12.8 oz) 08/11/2025 2:23 PM BILL PEDDLER Height 162.6 cm (5' 4) 08/11/2025 2:23 PM BILL PEDDLER Body Mass Index 21.94 08/11/2025 2:23 PM BILL PEDDLER Plan of Treatment Upcoming Encounters Date Type Department Care Team (Latest Contact Info) Description 08/24/2025 10:30 AM BILL PEDDLER Hospital Encounter [facility] Cardiac Catheterization Lab [address] [place] [address] Sunny Moore MD [address] [facility] [address] [place] [address] Paroxysmal A-fib (HCC); H/O: GI bleed 08/24/2025 10:30 AM BILL PEDDLER Anesthesia Event [facility] Cardiac Catheterization Lab [address] [place] [address] Indira Wakefield, JOB RECRUITER [address] [address] 08/24/2025 10:30 AM BILL PEDDLER - 08/24/2025 12:00 PM BILL PEDDLER Surgery [facility] Cardiac Catheterization Lab [address] [place] [address] Sunny Moore MD [address] [place] [address] [address] [place] [address] PERC BEN CLOSE W/IMPLANT [id number] Health Maintenance Due Date Last Done Comments Foot Exam 08/07/2024 08/07/2023, 11/2020, 06/20/2020 Hemoglobin A1C 10/09/2025 04/08/2025, 07/23, 03/14/2023, Additional history exists Covid-19 Vaccine ( season) 2026 07/07/2025, 07/21/2024, 12/26/2023, Additional history exists Dilated Eye Exam 05/18/2026 05/18/2025, 08/16/2024 Depression Screening 08/11/2026 08/11/2025, 08/11/2025, 04/09/2025, Additional history exists Lipid Panel 08/11/2026 08/11/2025, 07/23, 05/30/2022, Additional history exists Well Visit 65+ 08/11/2026 08/11/2025, 07/23, 08/07/2023, Additional history exists Fall Risk Assessment 08/12/2026 08/12/2025, 08/11/2025, 08/10/2024, Additional history exists Osteoporosis Screening-Bone Density Scan 10/05/2026 10/05/2024, 06/23/2020 DTaP/Tdap/Td Vaccine (2 - Td or Tdap) 01/28/2029 01/28/2019 Pneumococcal vaccine 65+ Completed 07/14/2018, 06/23 Zoster Vaccine Completed 09/30/2019, 05/2020, 06/29/2019 Albumin Creatinine Ratio, Urine Discontinued , 07/14/2018 Influenza Vaccine Completed 07/07/2025, , 07/03/2023, Additional history exists eGFR Discontinued 08/12/2025, 03/24, 04/20/2025, Additional history exists Hepatitis B Screening Discontinued Procedures Procedure Name Priority Date/Time Associated Diagnosis Comments ECG 12-LEAD Routine 08/12/2025 12:16 PM BILL PEDDLER EGFR Routine 08/12/2025 11:16 AM BILL PEDDLER DIFFERENTIAL AUTO Routine 08/12/2025 11:16 AM BILL PEDDLER APTT Routine 08/12/2025 11:16 AM BILL PEDDLER PROTIME-INR Routine 08/12/2025 11:16 AM BILL PEDDLER COMPREHENSIVE METABOLIC PANEL Routine 08/12/2025 11:16 AM BILL PEDDLER CBC WITH AUTO DIFFERENTIAL Routine 08/12/2025 11:16 AM BILL PEDDLER TYPE AND SCREEN Timed 08/12/2025 11:16 AM BILL PEDDLER LIPID PANEL Routine 08/11/2025 3:12 PM BILL PEDDLER Hyperlipidemia, unspecified hyperlipidemia type CT HEART MORPHOLOGY W CONTRAST Schedule Routine, Read Routine (OP Routine) 07/14/2025 2:46 PM CDT Paroxysmal A-fib (HCC) POCT CREATININE FOR CONTRAST EVALUATION Routine 07/14/2025 2:30 PM CDT DIABETES EYE EXAM Routine 05/18/2025 9:47 AM CDT HEMOGLOBIN A1C Routine 04/08/2025 2:13 PM CDT Diabetes mellitus without complication (HCC) DEXA AXIAL SKELETON BONE DENSITY 1 OR MORE SITES Schedule Routine, Read Routine (OP Routine) 10/05/2024 11:46 AM BILL PEDDLER Menopause ALBUMIN CREATININE RATIO, URINE Routine 08/10/2024 11:33 AM BILL PEDDLER Medicare annual wellness visit, subsequent Diabetes mellitus without complication (HCC) from Last 3 Months or Most Recently Relevant to Health Maintenance Results * ECG 12 lead (08/12/2025 12:16 PM BILL PEDDLER) 08/12/2025 12:1 6 PM BILL PEDDLER Narrative [facility] - 08/12/2025 12:48 PM BILL PEDDLER Vent Rate: 54 bpm RR Interval: 1103 msec WV Interval: 189 msec QRS Duration: 82 msec QT Interval: 388 msec QTC Interval: 374 msec P-R-T [place]: 78 - -9 - 115 degrees IMPRESSION: SINUS BRADYCARDIA ANTEROSEPTAL MYOCARDIAL INFARCTION , OF INDETERMINATE AGE T-WAVE ABNORMALITY, CONSIDER ISCHEMIA Electronically Signed By: Jose Cerda MD, FACC Sunny Moore MD ECG ORDERABLES Final Resul t Performing Organization Address City/State/[facility] Co de Phone Number [employer] [facility] * (ABNORMAL) eGFR (08/12/2025 11:16 AM BILL PEDDLER) eGFR 42(L) >=60 mL/min/1. 73 m2 Comment: Interpretive Data [...] Current interpretive data was last reviewed 2021. Blood 08/12/2025 11:1 6 AM BILL PEDDLER 08/12/2025 12:41 PM BILL PEDDLER Sunny Moore MD LAB BLOOD ORDERABLES Final Result Performing Organization Address City/[facility] de Phone Number QUYNH [phone] [address] Department [place] [address] * (ABNORMAL) Differential, auto (08/12/2025 11:16 AM BILL PEDDLER) Neutrophil abs 4.48 1.50 - 6.50 K/cumm Imm gran abs 0.02 0.00 - 0.10 K/cumm [facility] Lymphocyte abs 2.01 0.80 - 3.30 K/cumm [facility] Monocyte abs 0.94(H) 0.20 - 0.80 K/cumm [facility] Eosinophil abs 0.11 0.00 - 0.50 K/cumm [facility] Basophil abs 0.07 0.00 - 0.10 K/cumm [facility] Neutrophil pct 58.8 % [facility] Comment: Interpretive Data Percent cell count reference ranges are not reported, since discordance with absolute values may lead to misinterpretation of CBC data. Current Interpretive Data was last revised on 2017. Imm gran pct 0.3 % [facility] Comment: Interpretive Data Percent cell count reference ranges are not reported, since discordance with absolute values may lead to misinterpretation of CBC data. Current Interpretive Data was last revised on 2017. Lymphocyte pct 26.3 % [facility] Comment: Interpretive Data Percent cell count reference ranges are not reported, since discordance with absolute values may lead to misinterpretation of CBC data. Current Interpretive Data was last revised on 2017. Monocyte pct 12.3 % [facility] Comment: Interpretive Data Percent cell count reference ranges are not reported, since discordance with absolute values may lead to misinterpretation of CBC data. Current Interpretive Data was last revised on 2017. Eosinophil pct 1.4 % [facility] Comment: Interpretive Data Percent cell count reference ranges are not reported, since discordance with absolute values may lead to misinterpretation of CBC data. Current Interpretive Data was last revised on 2017. Basophil pct 0.9 % [facility] Comment: Interpretive Data Percent cell count reference ranges are not reported, since discordance with absolute values may lead to misinterpretation of CBC data. Current Interpretive Data was last revised on 2017. Blood 08/12/2025 11:1 6 AM BILL PEDDLER 08/12/2025 12:41 PM BILL PEDDLER Sunny Moore MD LAB BLOOD ORDERABLES Final Result [facility] [id number] [address] Department [place] [address] * (ABNORMAL) CBC with auto differential (08/12/2025 11:16 AM BILL PEDDLER) WBC 7.63 3.80 - 9.90 K/cumm Hgb 9.8(L) 11.9 - 15.5 g/dL [facility] Hct 31.6(L) 35.6 - 45.5 % [facility] Plt 227 150 - 400 K/cumm [facility] MPV 10.4 9.1 - 12.3 fL [facility] RBC 3.05(L) 3.90 - 5.20 M/cumm [facility] MCV 103.6(H) 81.3 - 96.4 fL [facility] MCH 32.1 27.1 - 33.3 pg [facility] MCHC 31.0(L) 32.3 - 35.7 g/dL [facility] RDW CV 14.4 11.1 - 14.9 % [facility] RDW SD 55.2(H) 35.7 - 48.1 fL [facility] NRBC abs 0.00 0.00 - 0.01 K/cumm [facility] Blood 08/12/2025 11:1 6 AM BILL PEDDLER 08/12/2025 12:41 PM BILL PEDDLER Sunny Moore MD LAB BLOOD ORDERABLES Final Result Performing Organization Address [facility] de Phone Number BARRYYEE [address] [place] [address] * (ABNORMAL) aPTT (08/12/2025 11:16 AM BILL PEDDLER) aPTT 43(H) 26 - 38 sec Comment: Interpretive Data Heparin therapeutic range: 66.0 - 100.0 seconds. Range based on correlation with therapeutic heparin activity range of 0.3 - 0.7 Units/mL. Blood 08/12/2025 11:1 6 AM BILL PEDDLER 08/12/2025 12:41 PM BILL PEDDLER Sunny Moore MD LAB BLOOD ORDERABLES Final Result Performing Organization Address [facility] Co de Phone Number BARRYYEE [address] [place] [address] * (ABNORMAL) Protime-INR (08/12/2025 11:16 AM BILL PEDDLER) PT 22.6(H) 10.2 - 13.5 sec INR 2.03(H) 0.90 - 1.20 [facility] Comment: Interpretive data Oral anticoagulant therapeutic ranges: Venous thromboembolism prophylaxis or treatment: 2.0-3.0 CARDIOLOGY Standard range: 2.0-3.0 High-intensity range: 2.5-3.5 Refer to indication-specific guidelines for appropriate target ranges for prosthetic heart valve replacement. Current interpretive data was last revised on 2019. Blood 08/12/2025 11:1 6 AM BILL PEDDLER 08/12/2025 12:41 PM BILL PEDDLER Sunny Moore MD LAB BLOOD ORDERABLES Final Result Performing Organization Address [facility] Co de Phone Number [facility] GAVIRIA [address] [address] Department [place] [address] * Type and screen (08/12/2025 11:16 AM BILL PEDDLER) Pathologist [facility] ABO Rh O Positive Kyleigh, indirect Negative [facility] Blood 08/12/2025 11:1 6 AM BILL PEDDLER 08/12/2025 12:42 PM BILL PEDDLER Narrative [facility] - 08/12/2025 1:52 PM BILL PEDDLER Has the patient had Daratumumab or Isatuximab in the past 6 months?->Unknown Sunny Moore MD LAB BLOOD BANK TEST ORDERAB LES Final Result Performing Organization Address [facility] Co de Phone Number QUYNH GAVIRIA [id number] [address] Department [employer] [place], [place] [id number] * (ABNORMAL) Comprehensive metabolic panel (08/12/2025 11:16 AM BILL PEDDLER) Sodium 137 135 - 145 mmol/L Potassium, pl 4.2 3.3 - 4.9 mmol/L [facility] Chloride 104 97 - 110 mmol/L [facility] CO2 17(L) 22 - 32 mmol/L [facility] Anion gap 16(H) 2 - 15 mmol/L [facility] BUN 20 6 - 25 mg/dL [facility] Creatinine 1.25(H) 0.60 - 1.10 mg/dL [facility] Glucose 128 70 - 199 mg/dL [facility] Comment: Interpretive Data Fasting glucose >/= 126 [...] Current interpretive data was last revised 2022. Calcium 10.5(H) 8.5 - 10.3 mg/dL [facility] Bilirubin, total 0.2 0.1 - 1.2 mg/dL [facility] Protein, pl 6.0(L) 6.5 - 8.5 g/dL [facility] Albumin 3.4(L) 3.5 - 5.0 g/dL [facility] Alk phos 79 40 - 130 Units/L [facility] ALT 12 7 - 45 Units/L [facility] AST 24 10 - 45 Units/L [facility] Blood 08/12/2025 11:1 6 AM BILL PEDDLER 08/12/2025 12:41 PM BILL PEDDLER Sunny Moore MD LAB BLOOD ORDERABLES Final Result QUYNH [id number] [address] Department [place] [address] * (ABNORMAL) Lipid panel (08/11/2025 3:12 PM BILL PEDDLER) [facility] Cholesterol 227(H) 30 - 199 mg/dL Comment: Interpretive Data [...] last revised on 2018. Testing performed by: [facility], [address] [place] [address]., [address] Triglycerides 155(H) <=149 mg/dL [facility] Comment: Interpretive Data Ages [...] last revised on 2018. Testing performed by: [facility], [address] [place] [address]., [address] HDL 46 >=40 mg/dL [facility] Comment: Interpretive [...] last revised on 2018. Testing performed by: [facility], [address] [place] [address]., [address] LDL, calculated 153(H) <=129 mg/dL [facility] Comment: Interpretive Data Ages [...] NCEP Expert Panel. Circulation 2004;110:227 3. Evan M et al. CHEO Cardiol. 2020 January 20;5(5):540-548. doi: 10.1001/[email or web address].2020.0013 Current Interpretive Data was last revised on 2024. Testing performed by: [address] [address] Non-HDL Cholesterol 181 mg/dL [facility] G[facility]IR[facility] Comment: Interpretive Data Ages [...] last revised on 2018. Testing performed by: [address] [address] Chol/HDL ratio 5 [facility] Comment:Testing performed by : [address] [address] Blood 08/11/2025 3:12 PM BILL PEDDLER 08/11/2025 8:08 PM BILL PEDDLER Osmel Moe MD LAB BLOOD ORDERABLES Final Result [facility] [address] Department [place] [address] * CT Heart Morphology W Contrast (07/14/2025 2:46 PM CDT) Anatomical Region Laterality Modality Chest N/A Computed Tomogra phy 07/14/2025 5:05 PM CDT Impressions 07/15/2025 8:43 AM CDT 1. Pulmonary vein anatomy as described above. Dictated by: Chuck Eagle M.D. The radiology attending physician has personally reviewed this study, and had reviewed and/or edited this written report and agrees with it. Electronically signed by: Jorge Noonan M.D. Narrative 07/15/2025 8:43 AM CDT EXAMINATION: CT HEART MORPHOLOGY W CONTRAST HISTORY: Patient with arrhythmia, pre radiofrequency ablation procedure. TECHNIQUE: Heart CT performed during administration of 117 mL of Optiray 350, intravenously per pulmonary vein protocol. Images were transferred to an independent workstation for additional 3D post-processing. FINDINGS: Pulmonary vein anatomy: There are 2 veins on the left and 2 veins on the right. * Right superior pulmonary vein ostial diameter: 15 x 21 mm. * Right inferior pulmonary vein ostial diameter: 9 x 12 mm. * Left superior pulmonary vein ostial diameter: 14 x 14 mm. * Left inferior pulmonary vein ostial diameter: 11 x 14 mm. The left atrial appendage does not contain thrombus Left atrial diameter: 39 mm Esophagus lies immediately midline. Other findings: Evaluation is limited by motion artifact. There is a small right pleural effusion. There is no consolidation or suspicious pulmonary nodule. There is no lymphadenopathy in the chest. The thyroid is normal. Trace pericardial effusion. Moderate coronary artery calcification. Imaged portions of the liver, adrenals, spleen, kidneys and gallbladder are normal. There is no suspicious osseous lesion. Procedure Note Jorge Noonan MD - 07/15/2025 EXAMINATION: CT HEART MORPHOLOGY W CONTRAST HISTORY: Patient with arrhythmia, pre radiofrequency ablation procedure. TECHNIQUE: Heart CT performed during administration of 117 mL of Optiray 350, intravenously per pulmonary vein protocol. Images were transferred to an independent workstation for additional 3D post-processing. FINDINGS: Pulmonary vein anatomy: There are 2 veins on the left and 2 veins on the right. * Right superior pulmonary vein ostial diameter: 15 x 21 mm. * Right inferior pulmonary vein ostial diameter: 9 x 12 mm. * Left superior pulmonary vein ostial diameter: 14 x 14 mm. * Left inferior pulmonary vein ostial diameter: 11 x 14 mm. The left atrial appendage does not contain thrombus Left atrial diameter: 39 mm Esophagus lies immediately midline. Other findings: Evaluation is limited by motion artifact. There is a small right pleural effusion. There is no consolidation or suspicious pulmonary nodule. There is no lymphadenopathy in the chest. The thyroid is normal. Trace pericardial effusion. Moderate coronary artery calcification. Imaged portions of the liver, adrenals, spleen, kidneys and gallbladder are normal. There is no suspicious osseous lesion. IMPRESSION: 1. Pulmonary vein anatomy as described above. Dictated by: Chuck Eagle M.D. The radiology attending physician has personally reviewed this study, and had reviewed and/or edited this written report and agrees with it. Electronically signed by: Jorge Noonan M.D. Ivone Dickerson JOB RECRUITER IMG CT PROCEDURES Final Result * (ABNORMAL) POCT creatinine for contrast evaluation (07/14/2025 2:30 PM CDT) Creatinine, POC 1.5(A) 0.6 - 1.3 mg/dL Blood 07/14/2025 2:30 PM CDT Ivone Dickerson JOB RECRUITER POINT OF CARE TEST ORDE RABLES Final Result * DIABETES EYE EXAM (05/18/2025 9:47 AM CDT) SCRIBED DIABETIC DILATED EYE EXAM Normal Result [facility] Historical Provider HEALTH MAINTENANCE Edited Result - Final * Hemoglobin A1c (04/08/2025 2:13 PM CDT) Hgb A1C 4.7 4.0 - 5.6 % Comment:Testing performed by : [facility], [address] [place] [address], [place]., [address] Estimated Average Glucose 88 mg/dL [facility] GAVIRIA Comment: The ADA recommends reporting an estimated Average Glucose (eAG) with all Hemoglobin A1c results using the equation derived from a study of 507 normal and diabetic adults. Minority populations were underrepresented and children were not included. (Diabetes Care 31:2651-7910, 2008). The eAG is not equivalent to a fasting glucose. Testing performed by: [address] [place] [address] Blood 04/08/2025 2:13 PM CDT 04/08/2025 7:30 PM CDT us Melony Oliveros NP LAB BLOOD ORDERABLES Final Resul t QUY[facility] GAVIRIA [address] [address] Department [place] [address] * Dexa Axial Skeleton Bone Density 1 or 2 Site (10/05/2024 11:46 AM BILL PEDDLER) Anatomical Region Laterality Modality Body N/A Other 10/05/2024 8:41 PM BILL PEDDLER Narrative 10/05/2024 8:42 PM BILL PEDDLER EXAM DESCRIPTION: DEXA AXIAL SKELETON BONE DENSITY 1 OR MORE SITES REASON FOR STUDY: 84 y/o year old F with given history of: menopause Osteoporosis screening Post menopausal Floor Cleaner/Model: Zawatt SL (S/N [id number]) CLINICAL INFORMATION: Current height: 62.5 inches Maximum [...] Abelardo Rooney M.D. MF: ROSA Report ID: [id number] Reading Location: [place] [address] Procedure Note Abelardo Rooney MD - 10/05/2024 EXAM DESCRIPTION: DEXA AXIAL SKELETON BONE DENSITY 1 OR MORE SITES REASON FOR STUDY: 84 y/o year old F with given history of: menopause Osteoporosis screening Post menopausal Floor Cleaner/Model: GalaDo Discovery SL (S/N [id number]) CLINICAL INFORMATION: Current height: 62.5 inches Maximum [...] Abelardo Rooney M.D. MF: ROSA Report ID: [id number] Reading Location: [place] [address] Osmel Moe MD IM DXA PROCEDURES Final R esult * (ABNORMAL) Albumin Creatinine Ratio, Urine (08/10/2024 11:33 AM BILL PEDDLER) [facility] Albumin Ur 91.5 mg/L Comment: Interpretive Data No reference range established. Current interpretive data was last revised 2019. Testing performed by: [facility], [address] [place] [address], [place]., [address] Creatinine Ur 89.8 mg/dL [facility] Comment: Interpretive Data No reference range established. Current interpretive data was last revised 2019. Testing performed by: [address] [place] [address] Albumin Creatinine Ratio, Ur 102(H) 1 - 29 mg/g [facility] Comment:Testing performed by : [address], [place]., [address] Urine 08/10/2024 11:3 3 AM BILL PEDDLER 08/10/2024 5:40 PM BILL PEDDLER Osmel Moe MD LAB URINE ORDERABLES Final Result Performing Organization Address City/State/[facility] Co ak Phone Number QUYNH [address] [facility] Department [place] [address] from Last 3 Months or Most Recently Relevant to Health Maintenance Insurance HU[employer]NA CHOICE MEDICARE O MEDICARE [place] HU[employer]NA CHOICE MEDICARE PPO HUMANA CHOICE MEDICARE PPO HUMANA CHOICE MEDICARE PPO Advance Directives For more information, please contact: [phone] * LIMITED - No CPR (Latest Code Status on File) Date Activated Date Inactivated Comments 04/09/2025 11:51 AM 04/22/2025 10:21 PM Question Answer Comments Provide aggressive medical m anagement before a full cardiopulmonary arrest occurs. Use antibiotics, IV Fluids, and medical treatment unless specifically selected below: No intubation * Full Code Date Activated Date Inactivated Comments 04/09/2025 8:44 AM 04/09/2025 11:51 AM * Full Code Date Activated Date Inactivated Comments 10/02/2021 12:09 AM 10/05/2021 8:30 PM Care Teams Mounter Sousaphones Relationship Specialty Start Date End Date Osmel Moe MD PCP - General 12/20/16 Gomez Raymond MD Consulting Physician Urology 10/04/21 James Suarez MD Consulting Physician Cardiovascular Disease 10/05/21 Ramo Squires MD Consulting Physician Urology 01/23/22 James Juarez MD Referring Physician Dermatology 03/03/23 Bisi Gonzales OD [address] [place] [address] [facility] Ophthalmology 05/24/25
--- OUTSIDE RECORDS SUMMARY | 2025-08-23 12:53 | XMS_ITS | Clinical Summary ---
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 Gender Identity Not on file Sexual Orientation Not on file Plan of Treatment Health Maintenance Due Date Last Done Comments Hepatitis C Virus (HCV) Screening 1940 Respiratory Syncytial Virus (RSV) Immunization (Adult) (1 - 1-dose 75+ series) 2014 Medicare Initial AWV [id number] 09/22/2022 Influenza Immunization (#1) 2025 11/0 05/2021, 05/19/2020, 07/14/2018, Additional history exists SARS-COV-2 Immunization ( season) 2025 07/31/2021, 12/01/2020, 11/10/2020 Pneumococcal Immunization (50+ years) [...] topic Insurance MEDICARE C HUMANA Care Teams Svp Group Director Relationship Specialty Start Date End Date Osmel Moe MD [address] [place] [address] PCP - General Internal Medicine 10/10/21
--- OUTSIDE RECORDS SUMMARY | 2025-08-23 12:53 | XMS_ITS ---
Author Organization [facility] Address [address] [place] [address] Care Team Providers Care Organizational Development Specialist Name Role Phone Osmel Moe MD Primary Care Provider [phone] Gomez Raymond MD Unavailable James Suarez MD Unavailable [phone] Ramo Squires MD Unavailable James Juarez MD Unavailable [phone] Bisi Gonzales OD Unavailable [phone] Active Problems Problem Noted Date Diagnosed Date Paroxysmal A-fib 07/25/2025 H/O: GI bleed 07/25/2025 Focal seizures 04/13/2025 Assessment & Plan (08/11/2025 6:37 PM CLINICAL APPLICATION SPECIALIST): Patient is maintained on Keppra she has [...] 1324. Stat CT Head non-contrast revealed Right SPOT FACER infarct with Right parietal intraparenchymal hemorrhage. Pt [...] 04/11/2025 Assessment & Plan (08/11/2025 6:32 PM CLINICAL APPLICATION SPECIALIST): Patient is under care of Neurology she is ambulating with a cane she has no hemiparesis at this time. She does have some seizures and again this is managed by Neurology [facility]. 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 Stat CT Head non-contrast revealed Right SPOT FACER infarct with Right parietal intraparenchymal hemorrhage. Pt [...] 1324. Stat CT Head non-contrast revealed Right SPOT FACER infarct with Right parietal intraparenchymal hemorrhage. Pt [...] 1324. Stat CT Head non-contrast revealed Right SPOT FACER infarct with Right parietal intraparenchymal hemorrhage. Pt [...] 04/09/2025 Assessment & Plan (08/11/2025 6:34 PM CLINICAL APPLICATION SPECIALIST): Patient's hemoglobin is 10.1 upon discharge from [...] 04/08/2025 Assessment & Plan (08/11/2025 6:38 PM CLINICAL APPLICATION SPECIALIST): Patient's fatigue she is 85 years old [...] (07/31/2022): Added automatically from request for surgery [id number] Melanocytic nevus of right upper extremity 07/31 Overview (07/31/2022): Added automatically from request for surgery [id number] Atrial fibrillation 11/08/2021 Assessment & Plan (08/11/2025 6:44 PM CLINICAL APPLICATION SPECIALIST): PATIENT IS SCHEDULED FOR LEFT ATRIAL APPENDAGE OCCLUSION PROCEDURE AUGUST 23, 2025 Assessment & Plan (05/14/2025 3:25 PM CDT): History of chronic atrial fibrillation patient has been on Eliquis for several years she developed anemia and a GI bleed Eliquis was discontinued on 04/09/2025 and admitted to [facility] for GI bleed. On 04/13/2025 patient had right-sided CVA transferred to [facility] Assessment & Plan (04/13/2025 7:15 AM CDT): [...] atrial fibrillation patient's Eliquis she continues see mixer wet pour she is doing well. Chest pain no palpitations no evidence of he needs CVA or TIA symptoms Assessment & Plan (06/23/2024 2:24 PM CDT): Chronic problems stable patient remains on 15 mg daily Assessment & Plan (03/10/2024 8:20 AM CDT): This is chronic stable. Please continue Xarelto. Monitor vital signs for RVR. Assessment & Plan (11/28/2022 6:04 PM CLINICAL APPLICATION SPECIALIST): Patient's atrial fibrillation she applied for life insurance she was declined because of atrial fibrillation and protein in the urine. She want to make sure everything was being done regarding her problems. I explained to her atrial fibrillation importance of controlling rate as well as anticoagulation therapy. Patient is here with her daughter understood information given. Assessment & Plan (11/08/2021 1:35 PM CLINICAL APPLICATION SPECIALIST): Patient is seen by mixer wet pour last 30 days she remains on Eliquis at this time fibrillation new onset less than 90 days ago. Patient is tolerating the Eliquis today of her pulses excellent. See her back in the next 4 months. Will continue Eliquis at this time Vertigo 10/01/2021 Assessment & Plan (10/01/2021 10:34 AM CLINICAL APPLICATION SPECIALIST): Dizziness for last 2-3 days patient has [...] 09/20/2020 Assessment & Plan (09/20/2020 3:49 PM CLINICAL APPLICATION SPECIALIST): Patient developed pain right shoulder after breast [...] own Assessment & Plan (08/07/2023 2:11 PM CLINICAL APPLICATION SPECIALIST): No complaints of joint pains whatsoever at [...] day helps.. Recommend patient go to a [facility] physical therapy see if stretching exercise may help her leg and possibly a shoulders. Assessment & Plan (09/19/2020 4:08 PM CLINICAL APPLICATION SPECIALIST): Patient having joint pains multiple sites and [...] polydipsia. Assessment & Plan (08/10/2024 3:07 PM CLINICAL APPLICATION SPECIALIST): Patient advised me she had an eye exam 1 week ago no diabetic eye disease found medical records report pending. Diabetes very well controlled hemoglobin HgbA1c less than 7 for the past 4 years. Current HgbA1c is results pending Assessment & Plan (08/07/2023 2:12 PM CLINICAL APPLICATION SPECIALIST): Diabetes has been stable no HgbA1c today. [...] (H) Assessment & Plan (10/02/2021 9:48 AM CLINICAL APPLICATION SPECIALIST): Diet controlled, monitor glucose while inpatient and [...] 05/27 Assessment & Plan (08/11/2025 6:47 PM CLINICAL APPLICATION SPECIALIST): History and physical completed patient's health risk [...] weeks. Assessment & Plan (08/10/2024 3:08 PM CLINICAL APPLICATION SPECIALIST): History and physical completed patient's health risk assessment health maintenance reviewed and addressed. Her last annual exam with me this patient has been admitted to hospital for urinary tract obstruction kidney stone perinephric abscess. Of which she has recovered from. Patient is doing well she is 84 years old she has absolutely no dementia. Assessment & Plan (08/07/2023 2:07 PM CLINICAL APPLICATION SPECIALIST): History and physical completed patient's health risk [...] shot was 2 weeks ago at local [facility]. Order for bone density is been [...] hours. Assessment & Plan (11/05/2018 6:23 PM CLINICAL APPLICATION SPECIALIST): Patient describes a neuropathy of sensation of [...] well. Assessment & Plan (08/10/2024 2:59 PM CLINICAL APPLICATION SPECIALIST): Blood pressure 134/36 patient feels well.. Gap [...] 300 mg per day down to 100. [place] some improvement but still feels fatigued worn [...] osteoarthritis Assessment & Plan (08/07/2023 2:10 PM CLINICAL APPLICATION SPECIALIST): Blood pressure is excellent no change in therapy Assessment & Plan (03/15/2023 2:46 PM CDT): Hypertension remains well controlled patient tolerating medications no change in therapy Assessment & Plan (11/28/2022 6:03 PM CLINICAL APPLICATION SPECIALIST): Blood pressure well controlled. Patient's concern regarding [...] therapy Assessment & Plan (11/08/2021 1:33 PM CLINICAL APPLICATION SPECIALIST): Blood pressures from home reviewed there are acceptable. Patient's blood pressure today is wide range between systolic and diastolic without any precise reason. Patient's echocardiogram was reviewed there was no significant valvular disease in ejection pressure was 70-75% no change in therapy. Assessment & Plan (10/08/2021 2:13 PM CLINICAL APPLICATION SPECIALIST): Blood pressure well reviewed patient now on new medication hydralazine and amlodipine again he has a follow-up appointment cardiology in the next 24 hours. No changes made in medications today Assessment & Plan (10/02/2021 9:48 AM CLINICAL APPLICATION SPECIALIST): Blood pressure has been severely elevated since [...] therapy. Assessment & Plan (09/19/2020 4:09 PM CLINICAL APPLICATION SPECIALIST): Blood pressure is slightly elevated today no [...] appointment. Assessment & Plan (11/05/2018 6:25 PM CLINICAL APPLICATION SPECIALIST): Hypertension elevated today will continue reserves check [...] profile. 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 Monitor. Perinephric abscess 03/10/2024 04/08/20 Assessment & Plan (08/10/2024 2:56 PM CLINICAL APPLICATION SPECIALIST): Patient advised me abscesses resolved through Wound [...] 03/15/2023 Assessment & Plan (11/28/2022 6:06 PM CLINICAL APPLICATION SPECIALIST): Advised patient use lactate when using milk products. For information from up-to-date today regarding high-fiber diet. Not having any blood in his stool or mucus in his stools. She is not having overt diarrhea. Kidney stones 12/12/2021 03/15/2024 Overview (12/12/2021): Added automatically from request for surgery [id number] Gross hematuria 12/12/2021 03/30/2024 Overview (12/12/2021): Added automatically from request for surgery [id number] Assessment & Plan (03/22/2024 10:30 AM CDT): [...] procedure Assessment & Plan (10/08/2021 1:43 PM CLINICAL APPLICATION SPECIALIST): Hospital follow-up admission date 10/02/2021 discharge date 10/05/2021.. Diagnosis acute cystitis with hematuria. 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 Patient has been given referral to [facility] urologist a few weeks. Patient's blood [...] 022 Assessment & Plan (10/02/2021 9:49 AM CLINICAL APPLICATION SPECIALIST): Seen on CT on presentation. Does not seem to be hemodynamically significant. Echocardiogram ordered and Cardiology consulted. Right renal mass 10/02/2021 04/01/2024 Assessment & Plan (10/08/2021 2:12 PM CLINICAL APPLICATION SPECIALIST): Referral to urologist sent by this office. Assessment & Plan (10/02/2021 9:47 AM CLINICAL APPLICATION SPECIALIST): Seen on CT on presentation. CT urogram ordered per radiology recs. Urology consulted. Nausea and vomiting in adult 10/01/2021 03/15/2023 Assessment & Plan (10/08/2021 1:45 PM CLINICAL APPLICATION SPECIALIST): Nausea vomiting resolved once UTI was treated Assessment & Plan (10/01/2021 10:33 AM CLINICAL APPLICATION SPECIALIST): Nausea and vomiting started around September 09 is gotten progressively worse. Patient cannot hold down solids. Denies any blood in his stools or vomiting blood. No vomiting or bowel. No abdominal pain. Patient's unstable in appearance her typical self referred to emergency room for hospital admission EGD lab workup dehydration etc.. Acute cystitis with hematuria 10/01/2021 02/28/2022 Assessment & Plan (10/08/2021 1:44 PM CLINICAL APPLICATION SPECIALIST): Patient's referral with Urology cystoscopy is scheduled heart to be done. 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 Discovered on recent hospitalization Assessment & Plan (10/02/2021 9:52 AM CLINICAL APPLICATION SPECIALIST): UA on presentation showed pyuria with 4+ leuk esterase and 3+ bacteria present. Patient's lethargy and decreased appetite are likely symptoms infection, though it seems unlikely to explain the nausea, vomiting, and diarrhea that were present for approximately the past 2 weeks in resolved 3 days ago. [facility] [place] was reportedly negative, but the symptoms are [...] 04/24/2021 Assessment & Plan (08/21/2020 3:48 PM CLINICAL APPLICATION SPECIALIST): Patient having pain 3 4 days a [...] syndrome on left 01/07/2018 12/02/2019 Overview (01/07/2018): [id number] discomfort no surgical intervention needed if problems [...] date. Assessment & Plan (11/05/2018 6:25 PM CLINICAL APPLICATION SPECIALIST): Data hemoglobin HgbA1c today patient is having [...]
--- OUTSIDE RECORDS SUMMARY | 2025-08-23 12:53 | XMS_ITS | Encounter Summary ---
Author Organization [facility] Address [address] [place] [address] Phone Care Team Providers Care Utilization Coordinator Name Role Phone Osmel Moe MD Primary Care Provider + [phone] Gomez Raymond MD Unavailable [phone] James Suarez MD Unavailable [phone] Ramo Squires MD Unavailable [phone] James Juarez MD Unavailable Sera Vieira RN Unavailable [phone] Bisi Gonzales OD Unavailable [phone] Encounter Details Date Type Department Care Team (Late st Contact Info) Description 03/06/2023 Orders Only [facility] [address] [place] [address] Scanning, Provider Social History Tobacco [...] often do you attend chur ch or yazidi services? 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 [address] [address] 08/24/2025 10:30 AM CULVERT INSTALLER - 08/24/2025 12:00 PM CULVERT INSTALLER Surgery [facility] Catheter[facility] [address] [place] [address] Sunny Moore MD [address] [address] [address] [place] [address] PERC BEN CLOSE W/IMPLANT [id number] documented as of this encounter Procedures Procedure [...] documented as of this encounter Care Teams Utilization Coordinator Relationship Specialty Start Date End Date Osmel Moe MD PCP - General 12/20/16 Gomez Raymond MD Consulting Physician Urology 10/04/21 James Suarez MD Consulting Physician Cardiovascular Disease 10/05/21 Ramo Squires MD Consulting Physician Urology 01/23/22 James Juarez MD Referring Physician Dermatology 03/03/23 Sera Vieira RN [address] [place] [address] [address] [place] [address] [employer] Profiler 04/08/24 05/06/24 Bisi Gonzales, EVER [address] [place] [address] [facility] 05/24/25 documented as of this encounter
--- OUTSIDE RECORDS SUMMARY | 2025-08-23 12:53 | XMS_ITS | Encounter Summary ---
Author Organization [facility] Address [address] [place] [address] Phone Care Team Providers Care Piano Regulator Name Role Phone Osmel Moe MD Primary Care Provider + [phone] Gomez Raymond MD Unavailable [phone] James Suarez MD Unavailable [phone] Ramo Squires MD Unavailable [phone] James Juarez MD Unavailable [phone] Sera Vieira RN Unavailable [phone] Bisi Gonzales OD Unavailable [phone] Encounter Details Date Type Department Care Team (Late st Contact Info) Description 12/07/2021 Orders Only [facility] [address] [place] [address] Scanning, Provider Social History Tobacco [...] often do you attend chur ch or jainism services? More than 4 times per year 10/08/2021 Do you belong to any clubs o r organizations such as methodist groups, unions, fraternal or athletic groups, or [...] place to sleep or slept in a penitentiary (including now)? 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 Sex Female 3:07 PM CONFERENCE SERVICES MANAGER Gender Identity Not on file Sexual Orientation Not on file Occupation Industry Job Start Date Job End Date Retired Not on file Not on file Not on file documented as of this encounter Plan of Treatment Upcoming Encounters Date Type Department Care Team (Latest Contact Info) Description 08/24/2025 10:30 AM CONFERENCE SERVICES MANAGER Hospital Encounter [facility] Cardiac Catheterization Lab [id number] [place] [address] Sunny Moore MD [address] [facility] [address] [place] [address] Paroxysmal A-fib ([facility]); H/O: GI bleed 08/24/2025 10:30 AM CONFERENCE SERVICES MANAGER Anesthesia Event [facility] Cardiac Catheterization Lab [address] [place] [address] Indira Wakefield SECOND OPERATOR [id number] [facility] [address] [place], [place] [id number] 08/24/2025 10:30 AM CONFERENCE SERVICES MANAGER - 08/24/2025 12:00 PM CONFERENCE SERVICES MANAGER Surgery [facility] Cardiac Catheterization Lab [address] [place] [id number] Sunny Moore MD [address] [facility] [address] [place] [address] PERC BEN CLOSE W/IMPLANT [id number] documented as of this encounter Procedures Procedure [...] documented as of this encounter Care Teams Piano Regulator Relationship Specialty Start Date End Date Osmel Moe MD PCP - General 12/20/16 Gomez Raymond MD Consulting Physician Urology 10/04/21 James Suarez MD Consulting Physician Cardiovascular Disease 10/05/21 Ramo Squires MD Consulting Physician Urology 01/23/22 James Juarez MD Referring Physician Dermatology 03/03/23 Sera Vieira, RN [address] [place] [address] [address] [place] [address] Manager Neonatal 04/08/24 05/06/24 Bisi Gonzales OD [address] [place] [address] [facility] 05/24/25 documented as of this encounter
== END 2025-08-23 12:49 | disposition short-term general hospital (02) ==
PROVIDERS: Emergency Provider Emergency Medicine; PCP Internal Medicine
DX: S72.142A Displaced intertrochanteric fracture of left femur, initial encounter for closed fracture (principal); S06.340A Traumatic hemorrhage of right cerebrum without loss of consciousness, initial encounter; I48.0 Paroxysmal atrial fibrillation; I10 Essential (primary) hypertension; E11.9 Type 2 diabetes mellitus without complications; M81.0 Age-related osteoporosis without current pathological fracture; M10.9 Gout, unspecified; Z85.828 Personal history of other malignant neoplasm of skin; Z98.49 Cataract extraction status, unspecified eye; M47.812 Spondylosis without myelopathy or radiculopathy, cervical region; Z79.899 Other long term (current) drug therapy; Z79.01 Long term (current) use of anticoagulants; W18.30XA Fall on same level, unspecified, initial encounter
CPT/HCPCS: 36415; 51702; 70450; 72125; 73502; 80053; 85025; 85610; 85730; 99285; L0140